=== PATIENT | female | born 1975 | race Caucasian/White ===

== ENCOUNTER 2018-08-21 03:57 | Emergency (ER) | payer BC, OTHER ==
[2018-08-21] MEDS ORDERED: NA CHLORIDE 0.9% 1,000 ML ONE ×2 (04:50→06:43)
[2018-08-21] MEDS ORDERED: ONDANSETRON 4 MG/2 ML VIAL ONE (04:50)
[2018-08-21] MEDS ORDERED: FAMOTIDINE 20 MG/2 ML VIAL IV ONE (04:50)
[2018-08-21 05:10] LABS: Urine Blood NEGATIVE (NEG); Urine Glucose 2+ (NEG); Urine Protein NEGATIVE (NEG)
[2018-08-21 05:12] LABS: Absolute Lymphocytes (CBC) 4.7 K/uL (0.7-4.9); Absolute Monocytes 0.5 K/uL (0.1-1.3); Absolute Neutrophil 11.3 K/uL (1.8-8.0); Basophils % 0.7 % (0-1.3); Eosinophils % 0.3 % (0-4.4); Hematocrit 43.5 % (36.0-45.0); Lymphocytes % 28.4 % (15.3-44.8); RBC Red Blood Cell Count 4.57 M/uL (3.86-4.86)
[2018-08-21 05:15] LABS: Protime INR 0.99
[2018-08-21] MEDS ORDERED: NA CHLORIDE 0.9% 2,000 ML ONE (05:25)
[2018-08-21 05:29] LABS: Arterial Blood Carboxyhemoglob 1.7 % (0-1.5); Blood O2 Saturation 95.6 % (92-98.5)
--- NOTE | 2018-08-21 05:35 | ER ---
Nurse's Notes [facility] Name: Michael Horne Age: 43 yrs Sex: Female : 1975 Arrival Date: 08/21/2018 Time: 04:00 Bed 3 Private MD: Diagnosis: Diabetes mellitus due to underlying condition with ketoacidosis without coma;Type 1 diabetes mellitus;Altered mental status, unspecified;Elevated white blood cell count Presentation: 08/21 04:10 Presenting complaint: EMS states: sudden chest pain started 0300. she went to [place] [address] few weeks ago diagnosed with bronchitis. 04:10 Transition of care: patient was not received from another setting of care. Onset of [facility] symptoms was August 21, 2018. Risk Assessment: Do you want to hurt yourself or someone else? Patient reports no desire to harm self or others. Initial Sepsis Screen: Does the patient meet any 2 criteria? No. Patient's initial sepsis screen is negative. Does the patient have a suspected source of infection? No. Patient's initial sepsis screen is negative. Care prior to arrival: Medication(s) given: ASA, 325 mg, by EMS. 04:10 Acuity: MAEGAN 3 ed1 04:10 Method Of Arrival: EMS: [facility] rr5 04:10 Note vital signs from EMS BP 146/61 HR126 bpm, RR22 cpm, O2 sat 100% CBG 160 mg/dl. rr5 07:08 Acuity: MAEGAN 2 ss TAX ANALYST: 04:10 LMP 08/21/2018 rr5 Historical: - Allergies: 04:10 No Known Allergies; rr5 - Home Meds: 04:10 Lisinopril Oral [Active]; Hydrocodone-Acetaminophen Oral [Active]; gabapentin oral oral rr5 [Active]; 3 types of anti depressant cannot recall the name [Active]; apidra [Active]; Lantus Sub-Q [Active]; Abilify oral oral [Active]; - PMHx: 04:10 Diabetes - IDDM; Hypertension; Depression; Anxiety; nerve pain; rr5 - Immunization history:: Adult Immunizations up to date. - Social history:: Smoking status: Patient uses tobacco products, smokes one pack cigarettes per day. - Ebola Screening: : Patient negative for fever greater than or equal to 101.5 degrees Fahrenheit, and additional compatible Ebola Virus Disease symptoms Patient denies exposure to infectious person Patient denies travel to an Ebola-affected area in the 21 days before illness onset. - Family history:: not pertinent. Screenin:20 Abuse screen: Denies threats or abuse. Denies injuries from another. Nutritional rr5 screening: No deficits noted. Tuberculosis screening: No symptoms or risk factors identified. Fall Risk IV access (20 points). Total Sow Fall Scale indicates No Risk (0-24 pts). Assessment: 04:10 General: Appears in no apparent distress. comfortable, Behavior is calm, cooperative, rr5 appropriate for age. 04:10 Pain: Complains of pain in chest Pain radiates to left arm Pain currently is 10 out of rr5 10 on a pain scale. Quality of pain is described as aching, Pain began suddenly, Is continuous. Neuro: Level of Consciousness is awake, alert, obeys commands, Oriented to person, place, time, situation, Appropriate for age. Cardiovascular: Reports chest pain, Capillary refill < 3 seconds Patient's skin is warm and dry. Rhythm is sinus tachycardia. Respiratory: Airway is patent Respiratory effort is even, unlabored, Respiratory pattern is regular, symmetrical, tachypnea. GI: No signs and/or symptoms were reported involving the gastrointestinal system. : Reports urinary frequency. EENT: No signs and/or symptoms were reported regarding the EENT system. Derm: Skin is intact, Skin temperature is warm. Musculoskeletal: Capillary refill < 3 seconds, Range of motion: intact in all extremities. 05:00 Reassessment: patient complaining of urinary frequency every 15 minutes. rr5 05:20 Reassessment: Patient appears in no apparent distress at this time. No changes from rr5 previously documented assessment. Patient is alert, oriented x 3, equal unlabored respirations, skin warm/dry/pink. 05:55 Reassessment: patient became restless, agitated, GCS 14/15. ED provider reexamined the rr5 patient with order made and carried out. 06:35 Reassessment: patient pulling out lines, trying to get out on bed, disoriented ED rr5 provider at bedside with order made to do soft restraint and carried out. 06:37 Reassessment: saxophone assembler of the patient at bedside explained the need of restraint and rr5 agreed to it. 06:50 Reassessment: patient became calmer after the stat of Ativan IV given ED provider at rr5 bedside reexamined the patient. maintain on semi cox's position, Oxygen saturation maintaining 98-100%. on soft restraint, no redness on the upper extremities. Vital Signs: 04:10 BP 146 / 61; Pulse 126; Resp 25; Temp 98; Pulse Ox 100% ; Weight 92.08 kg; Height 5 ft. rr5 8 in. (172.72 cm); Pain 10/10; 05:10 BP 138 / 57; Pulse 125; Resp 27; Pulse Ox 99% on R/A; rr5 05:55 BP 105 / 60; Pulse 122; Resp 25; Pulse Ox 100% on R/A; rr5 06:30 BP 102 / 55; Pulse 120; Resp 30; Pulse Ox 98% on R/A; rr5 06:38 Temp 97.5(R); ed1 06:40 BP 105 / 60; Pulse 122; Resp 25; Pulse Ox 100% on R/A; rr5 06:50 BP 105 / 45; Pulse 124; Resp 26; Pulse Ox 100% on R/A; rr5 07:50 BP 120 / 50; Pulse 129; Resp 33; Pulse Ox 99% on R/A; tw2 08:45 BP 107 / 86; Pulse 126; Resp 32; Pulse Ox 99% on R/A; tw2 04:10 Body Mass Index 30.87 (92.08 kg, 172.72 cm) rr5 [place] Coma Score: 05:55 Eye Response: spontaneous(4). Verbal Response: confused(4). Motor Response: obeys rr5 commands(6). Total: 14. ED Course: 04:00 Patient arrived in ED. am2 04:10 Maximiliano Cohen MD is Attending Physician. dorita 04:10 Maintain EMS IV. Dressing intact. Good blood return noted. Site clean \T\ dry. Gauge \T\ rr 5 site: G20 left AC. 04:10 Patient maintains SpO2 saturation greater than 95% on room air. rr5 04:10 Patient has correct armband on for positive identification. Placed in gown. Bed in low rr5 position. Call light in reach. Side rails up X2. vehicle monitor technician on. Pulse ox on. NIBP on. 04:22 Mackenzie Christina RN is Primary Nurse. ed1 04:23 XRAY Chest (1 view) In Process Unspecified. EDMS 04:25 Triage completed. ed1 04:26 Primary Nurse role handed off by Mackenzie Christina, GRAHAM rr5 04:26 Ernesto Dhaliwal, GRAHAM is Primary Nurse. rr5 04:50 Initial lab(s) drawn, by me. Inserted saline lock: 20 gauge in right antecubital area, rr5 using aseptic technique. Blood collected. 05:33 Mavis Busby MD is Hospitalizing Provider. [facility] 05:49 Notified ED physician of a critical lab result(s). Glucose 849; CO2 7. ed1 06:10 IV discontinued, positive infiltration at right AC line. rr5 06:15 Inserted saline lock: 20 gauge in left forearm, using aseptic technique. Blood rr5 collected. 06:25 Palmer cath inserted, using sterile technique, 18 Fr., by me, balloon inflated, urine rr5 specimen collected. returned clear yellow urine. 06:45 Second set of blood cultures drawn by physician. Inserted saline lock: 18 gauge in rr5 right EJ, using aseptic technique. ,using aseptic technique. by dr. cohen. 07:00 Arm band placed on. tw2 07:[address] Cohen with Shanda at the [facility]. eb 07:[address] Coon the [place] solution architect poison information specialist for [facility] with Dr. Cohen for patient transfer consultation. 07:46 administrative approval given by Shanda Elliott RN at the [facility]/ patient has been accepted to [facility] [address] [place] [address] bed 5/ report to be called to [phone]/ Dr. Espitia has accepted the patient in transfer. 08:00 called Vicki from the [facility] / ETA 22 mins. eb 08:07 Glucose, Ancillary Testing Sent. tw2 08:12 Report given to Roxanna Peguero RN at [facility]. tw2 08:18 No provider procedures requiring assistance completed. Patient transferred, IV remains tw2 in place. Restraints: 06:40 Non-Violent Restraint: Order obtained. Initiated on August 21, 2018 at 06:40 Restraint rr5 Education provided to family/significant other/legally authorized client relations representative. Actions/Behavior observed: Confused/disoriented, has difficulty remembering/follow instructions, has impaired decision making, repeated attempts to get up from bed/chair w/o assistance, has decreased level of consciousness, unable to follow instructions, repeated attempts to remove/tamper lines/tubes/IV med devices \T\ wound dressing, Less restrictive alternatives attempted: decrease environmental stimuli, 1:1 patient care, reoriented to location, family at bedside, medications evaluated, medicated for pain/anxiety, repositioned, performed diversional activities, Alternative interventions: Effective Clinical justification for use: line protection, patient safety. 07:40 Non-Violent Restraint: Cognition: poor attention/concentration, Circulation: Within tw2 defined parameters (based on Cardiovascular assessment) Skin integrity: Within defined parameters (based on Integumentary assessment) Restraint status: Soft wrist restraint (Right) Continued. Soft wrist restraint (Left) Continued. 08:40 Non-Violent Restraint: Cognition: poor attention/concentration, Circulation: Within tw2 defined parameters (based on Cardiovascular assessment) Skin integrity: Within defined parameters (based on Integumentary assessment) Restraint status: Soft wrist restraint (Right) Continued. Soft wrist restraint (Left) Continued. Administered Medications: 04:23 Not Given (Other Intervention Used; EMS given 324mg tablet): Aspirin 162 mg PO once ed1 04:50 Drug: Zofran 4 mg Route: IVP; Site: right antecubital; rr5 05:00 Follow up: Response: No adverse reaction cc3 04:52 Drug: Pepcid 20 mg Route: IVP; Site: right antecubital; rr5 06:56 Follow up: Response: No adverse reaction rr5 04:57 Drug: NS 0.9% 1000 ml Route: IV; Rate: 125 ml/hr; Site: right antecubital; rr5 05:10 Drug: NS 0.9% 1000 ml Route: IV; Rate: 1 bolus; Site: right antecubital; rr5 06:30 Follow up: Response: No adverse reaction; IV Status: Completed infusion; IV Intake: cc3 1000ml 05:10 Drug: NS 0.9% 1000 ml Route: IV; Rate: 1 bolus; Site: left antecubital; rr5 06:15 Follow up: Response: No adverse reaction; IV Status: Completed infusion; IV Intake: cc3 1000ml 06:20 Drug: NS 0.9% 1000 ml Route: IV; Rate: 1 bolus; Site: left forearm; rr5 07:00 Follow up: Response: No adverse reaction; IV Status: Completed infusion; IV Intake: rr5 1000ml 06:30 Drug: Insulin Drip - (Insulin Regular Human 100 units, NS 0.9% 100 ml) {Co-Signature: rr5 cc3 (Tsephy Cordel).} Route: IV; Rate: 6 units/hr; Site: left forearm; 08:11 Follow up: Rate change 9 units/hr tw2 06:35 Drug: Rocephin - (cefTRIAXone) 1 grams Route: IVPB; Infused Over: 30 mins; Site: left rr5 forearm; 06:40 Follow up: Response: No adverse reaction; IV Status: Completed infusion; IV Intake: [id number] 06:40 Drug: NS 0.9% 1000 ml Route: IV; Rate: 1 bolus; Site: right jugular; rr5 07:00 Follow up: Response: No adverse reaction; IV Status: Completed infusion; IV Intake: tw2 1000ml 06:44 Drug: Ativan 2 mg Route: IVP; Site: left antecubital; bb 06:50 Follow up: Response: No adverse reaction cc3 06:45 Drug: Insulin Regular Human 10 units {Co-Signature: cc3 (Stephy Cordel).} Route: IVP; rr5 Site: left forearm; 06:50 Follow up: Response: No adverse reaction cc3 07:53 Drug: Sodium Bicarbonate 1 amp Route: IVP; Site: left forearm; tw2 07:55 Drug: Lactated Ringers Solution 1000 ml Route: IV; Rate: 150 ml/hr; Site: left forearm; tw2 08:47 Follow up: IV Status: Infusion continued upon transfer tw2 07:55 Drug: Lactated Ringers Solution 500 ml Route: IV; Rate: bolus; Site: right forearm; tw2 08:47 Follow up: Response: No adverse reaction; IV Status: Completed infusion; IV Intake: tw2 500ml 07:57 Drug: Sodium Bicarbonate 1 amp Route: IVP; Site: left forearm; tw2 08:13 CANCELLED (Duplicate Order): Etomidate 20 mg IVP once dorita 08:13 CANCELLED (Duplicate Order): Versed 4 mg IVP once dorita 08:13 CANCELLED (Duplicate Order): Rocuronium 55 mg IVP once dorita Point of Care Testing: Blood Glucose: 05:35 Blood Glucose: High (>450 mg/dL); ed1 06:45 Blood Glucose: High (>450 mg/dL); rr5 06:45 > 500mg/Dl ED provider aware with order made and carried out. rr5 Ranges: Intake: 06:15 IV: 1000ml; Total: 1000ml. cc3 06:30 IV: 1000ml; Total: 2000ml. cc3 06:40 IV: 10ml; Total: 2010ml. cc3 07:00 IV: 1000ml; Total: 3010ml. rr5 07:00 IV: 1000ml; Total: 4010ml. tw2 08:47 IV: 500ml; Total: 4510ml. tw2 Outcome: 05:34 Decision to Hospitalize by Provider. dorita 07:28 ER care complete, transfer ordered by . dorita 08:46 Transferred by helicopter to [facility]. tw2 08:46 Condition: stable 08:46 Instructed on the need for transfer. 08:48 Patient left the ED. tw2 Signatures: Dispatcher [employer] EDMS Maximiliano Cohen MD MD cha Ballard, Brenda RN RN bb Jerilyn Roach RN RN ss Macknezie Christina RN RN ed1 Judi Arora RN RN tw2 Aggie Avila amSonia Gregory Charlene cc3 Ernesto Dhaliwal RN RN rr5 Stephy Acevedo cc3 Corrections: (The following items were deleted from the chart) 04:10 Presenting complaint: EMS states: sudden chest pain started 0300. she went to [address] few weeks ago diagnosed with bronchitis. ed1 04:10 Transition of care: patient was not received from another setting of care. ed1 rr5 04:27 04:10 Onset of symptoms was August 21, 2018 ed1 rr5 27 04:10 Risk Assessment: Do you want to hurt yourself or someone else? Patient reports no 5 desire to harm self or others. ed1 04:27 04:10 Initial Sepsis Screen: Does the patient meet any 2 criteria? No. Patient's rr5 initial sepsis screen is negative. Does the patient have a suspected source of infection? No. Patient's initial sepsis screen is negative. ed1 : 04:10 Care prior to arrival: Medication(s) given: ASA, 325 mg, by EMS ed1 rr5 04: 04:10 Method Of Arrival: EMS: [facility] ed1 rr5 07:02 04:10 Note vital signs from EMS BP 146/61 HR126 bpm, RR22 cpm, O2 sat 100% CBG 126 rr5 mg/dl rr5 07:49 04:50 Initial lab(s) drawn, by me, by EMS personnel. rr5 rr5 07:54 04:10 BP 146 / 61; Pulse 126bpm; Resp 25bpm; Pulse Ox 100%; Temp 98F; 92.08 kg; Height rr5 5 ft. 8 in.; BMI: 30.8; Pain 10; ed1 08:07 08:00 administrative approval given by Shanda Elliott RN at the [facility] eb center/ patient has been accepted to [place] [address] bed 5/ report to be called to [phone]/ Dr. Espitia has accepted the patient in transfer. eb
--- NOTE | 2018-08-21 05:35 | EDPHYS ---
Physician Documentation [facility] Name: Michael Horne Age: 43 yrs Sex: Female : 1975 Arrival Date: 08/21/2018 Time: 04:00 Bed 3 Private MD: ED Physician Maximiliano Cohen HPI: 08/21 05:10 This 43 yrs old Female presents to ER via EMS with complaints of Chest Pain. dorita 05:10 The patient or guardian reports chest pain that is located primarily in the substernal dorita area. Onset: 2 day(s) ago. The pain does not radiate. Associated signs and symptoms: Pertinent positives: abdominal pain, lightheadedness, nausea. The chest pain is described as a heaviness. Duration: The patient or guardian reports a single episode, that is still ongoing. Modifying factors: The symptoms are alleviated by nothing. the symptoms are aggravated by nothing. The patient has experienced similar episodes in the past, a few times. 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 - Social history:: Smoking status: Patient uses tobacco products, smokes one pack cigarettes per day. - Ebola Screening: : Patient negative for fever greater than or equal to 101.5 degrees Fahrenheit, and additional compatible Ebola Virus Disease symptoms Patient denies exposure to infectious person Patient denies travel to an Ebola-affected area in the 21 days before illness onset. - Family history:: not pertinent. ROS: 05:10 Constitutional: Negative for fever, chills, and weight loss, Eyes: Negative for injury, dorita pain, redness, and discharge, ENT: Negative for injury, pain, and discharge, Neck: Negative for injury, pain, and swelling, Cardiovascular: Negative for chest pain, palpitations, and edema, Respiratory: Negative for shortness of breath, cough, wheezing, and pleuritic chest pain, Abdomen/GI: Negative for abdominal pain, nausea, vomiting, diarrhea, and constipation, Back: Negative for injury and pain, : Negative for injury, bleeding, discharge, and swelling, MS/Extremity: Negative for injury and deformity, Skin: Negative for injury, rash, and discoloration, Psych: Negative for depression, anxiety, suicide ideation, homicidal ideation, and hallucinations, Allergy/Immunology: Negative for hives, rash, and allergies, Endocrine: Negative for neck swelling, polydipsia, polyuria, polyphagia, and marked weight changes, Hematologic/Lymphatic: Negative for swollen nodes, abnormal bleeding, and unusual bruising. 05:10 Neuro: Positive for altered mental status, weakness. Exam: 05:10 Constitutional: This is a well developed, well nourished patient who is awake, alert, dorita and in no acute distress. Head/Face: Normocephalic, atraumatic. Eyes: Pupils equal round and reactive to light, extra-ocular motions intact. Lids and lashes normal. Conjunctiva and sclera are non-icteric and not injected. Cornea within normal limits. Periorbital areas with no swelling, redness, or edema. ENT: Nares patent. No nasal discharge, no septal abnormalities noted. Tympanic membranes are normal and external auditory canals are clear. Oropharynx with no redness, swelling, or masses, exudates, or evidence of obstruction, uvula midline. Mucous membranes moist. Neck: Trachea midline, no thyromegaly or masses palpated, and no cervical lymphadenopathy. Supple, full range of motion without nuchal rigidity, or vertebral point tenderness. No Meningismus. Chest/axilla: Normal chest wall appearance and motion. Nontender with no deformity. No lesions are appreciated. Respiratory: Lungs have equal breath sounds bilaterally, clear to auscultation and percussion. No rales, rhonchi or wheezes noted. No increased work of breathing, no retractions or nasal flaring. Abdomen/GI: Soft, non-tender, with normal bowel sounds. No distension or tympany. No guarding or rebound. No evidence of tenderness throughout. Back: No spinal tenderness. No costovertebral tenderness. Full range of motion. Skin: Warm, dry with normal turgor. Normal color with no rashes, no lesions, and no evidence of cellulitis. MS/ Extremity: Pulses equal, no cyanosis. Neurovascular intact. Full, normal range of motion. Psych: Awake, alert, with orientation to person, place and time. Behavior, mood, and affect are within normal limits. 05:10 Cardiovascular: Rate: tachycardic, Rhythm: regular, Pulses: Pulses are 4+ in bilateral radial, brachial, femoral, popliteal, posterior tibial and and dorsalis pedis arteries.. Heart sounds: normal, normal S1and S2, no S3 or S4, no murmur, no rub, no gallop, Edema: is not appreciated, JVD: is not appreciated. 05:10 Musculoskeletal/extremity: Extremities: all appear grossly normal, with no appreciated pain with palpation, ROM: no acute changes, intact in all extremities, full active range of motion, full passive range of motion. 05:10 Neuro: Orientation: to person, situation, Not oriented to place, time, Mentation: inappropriate for stated age, slow to respond, Memory: unable to test, Cranial nerves: grossly normal, is grossly normal based on the patient's age, no acute changes, Cerebellar function: is grossly normal, is grossly normal based on the patient's age, no acute changes, Motor: moves all fours, Gait: is unsteady, Deep tendon reflexes are 2+ (normal) in the bilateral brachioradialis, bicep, tricep and patellar and Achilles tendons, Babinski testing reveals upgoing toes, . Vital Signs: 04:10 BP 146 / 61; Pulse 126; Resp 25; Temp 98; Pulse Ox 100% ; Weight 92.08 kg; Height 5 ft. rr5 8 in. (172.72 cm); Pain 10/10; 05:10 BP 138 / 57; Pulse 125; Resp 27; Pulse Ox 99% on R/A; rr5 05:55 BP 105 / 60; Pulse 122; Resp 25; Pulse Ox 100% on R/A; rr5 06:30 BP 102 / 55; Pulse 120; Resp 30; Pulse Ox 98% on R/A; rr5 06:38 Temp 97.5(R); ed1 06:40 BP 105 / 60; Pulse 122; Resp 25; Pulse Ox 100% on R/A; rr5 06:50 BP 105 / 45; Pulse 124; Resp 26; Pulse Ox 100% on R/A; rr5 07:50 BP 120 / 50; Pulse 129; Resp 33; Pulse Ox 99% on R/A; tw2 08:45 BP 107 / 86; Pulse 126; Resp 32; Pulse Ox 99% on R/A; tw2 04:10 Body Mass Index 30.87 (92.08 kg, 172.72 cm) rr5 Grannis Coma Score: 05:55 Eye Response: spontaneous(4). Verbal Response: confused(4). Motor Response: obeys rr5 commands(6). Total: 14. Procedures: 06:55 Peripheral line: by aseptic technique a peripheral line was placed in the right [facility] external jugular vein. MDM: 04:10 Patient medically screened. [facility] 05:35 Data reviewed: vital signs, nurses notes, lab test result(s), EKG, radiologic studies, [facility] CT scan, plain films. 08/21 04:11 Order name: Basic Metabolic Panel [facility] 08/21 04:11 Order name: CBC with Diff [facility] 08/21 04:11 Order name: LFT's [facility] 08/21 04:11 Order name: Magnesium [facility] 08/21 04:11 Order name: NT PRO-BNP [facility] 08/21 04:11 Order name: PT-INR; Complete Time: 05:32 [facility] 08/21 04:11 Order name: Troponin (emerg Dept Use Only); Complete Time: 06:12 [facility] 08/21 04:11 Order name: Lipase; Complete Time: 06:12 [facility] 08/21 04:11 Order name: Basic Metabolic Panel; Complete Time: 06:12 [facility] 08/21 04:12 Order name: CBC with Automated Diff; Complete Time: 07:41 [facility] 08/21 04:12 Order name: Liver (Hepatic) Function; Complete Time: 06:12 [facility] 08/21 04:12 Order name: Magnesium; Complete Time: 06:12 [facility] 08/21 04:12 Order name: NT PRO-BNP; Complete Time: 06:12 [facility] 08/21 04:45 Order name: Urine Dipstick--Ancillary (enter results) 08/21 04:11 Order name: XRAY Chest (1 view) [facility] 08/21 04:45 Order name: Urine --Ancillary (enter results) 08/21 05:08 Order name: ABG; Complete Time: 05:32 [facility] 08/21 05:10 Order name: CT Head Brain wo Cont [facility] 08/21 05:32 Order name: Blood Culture Adult (2) [facility] 08/21 05:54 Order name: CBC Smear Scan; Complete Time: 07:41 [facility] 08/21 06:54 Order name: Urine Microscopic Only rr5 08/21 07:23 Order name: ABG [facility] 08/21 07:58 Order name: Glucose 08/21 08:00 Order name: Glucose, Ancillary Testing; Complete Time: 08:06 [facility] 08/21 08:00 Order name: Glucose, Ancillary Testing; Complete Time: 08:06 [facility] 08/21 08:00 Order name: Glucose, Ancillary Testing; Complete Time: 08:06 [facility] 08/21 08:02 Order name: Glucose, Ancillary Testing [facility] 08/21 04:11 Order name: EKG; Complete Time: 04:13 [facility] 08/21 04:11 Order name: Cardiac monitoring; Complete Time: 04:58 [facility] 08/21 04:11 Order name: EKG - Nurse/Tech; Complete Time: 04:58 [facility] 08/21 04:11 Order name: IV Saline Lock; Complete Time: 04:58 [facility] 08/21 04:11 Order name: Labs collected and sent; Complete Time: 04:58 [facility] 08/21 04:11 Order name: O2 Per Protocol; Complete Time: 04:58 [facility] 08/21 04:11 Order name: O2 Sat Monitoring; Complete Time: 04:58 [facility] 08/21 05:08 Order name: IV Saline Lock - Large Bore; Complete Time: 05:11 [facility] 08/21 05:32 Order name: Palmer; Complete Time: 07:18 [facility] 08/21 06:57 Order name: Restraint:Non-Violent; Complete Time: 07:17 [facility] Administered Medications: 04:23 Not Given (Other Intervention Used; EMS given 324mg tablet): Aspirin 162 mg PO once ed1 04:50 Drug: Zofran 4 mg Route: IVP; Site: right antecubital; rr5 05:00 Follow up: Response: No adverse reaction cc3 04:52 Drug: Pepcid 20 mg Route: IVP; Site: right antecubital; rr5 06:56 Follow up: Response: No adverse reaction rr5 04:57 Drug: NS 0.9% 1000 ml Route: IV; Rate: 125 ml/hr; Site: right antecubital; rr5 05:10 Drug: NS 0.9% 1000 ml Route: IV; Rate: 1 bolus; Site: right antecubital; rr5 06:30 Follow up: Response: No adverse reaction; IV Status: Completed infusion; IV Intake: cc3 1000ml 05:10 Drug: NS 0.9% 1000 ml Route: IV; Rate: 1 bolus; Site: left antecubital; rr5 06:15 Follow up: Response: No adverse reaction; IV Status: Completed infusion; IV Intake: cc3 1000ml 06:20 Drug: NS 0.9% 1000 ml Route: IV; Rate: 1 bolus; Site: left forearm; rr5 07:00 Follow up: Response: No adverse reaction; IV Status: Completed infusion; IV Intake: rr5 1000ml 06:30 Drug: Insulin Drip - (Insulin Regular Human 100 units, NS 0.9% 100 ml) {Co-Signature: rr5 cc3 (Stephy Cordel).} Route: IV; Rate: 6 units/hr; Site: left forearm; 08:11 Follow up: Rate change 9 units/hr tw2 06:35 Drug: Rocephin - (cefTRIAXone) 1 grams Route: IVPB; Infused Over: 30 mins; Site: left rr5 forearm; 06:40 Follow up: Response: No adverse reaction; IV Status: Completed infusion; IV Intake: [id number] 06:40 Drug: NS 0.9% 1000 ml Route: IV; Rate: 1 bolus; Site: right jugular; rr5 07:00 Follow up: Response: No adverse reaction; IV Status: Completed infusion; IV Intake: tw2 1000ml 06:44 Drug: Ativan 2 mg Route: IVP; Site: left antecubital; bb 06:50 Follow up: Response: No adverse reaction cc3 06:45 Drug: Insulin Regular Human 10 units {Co-Signature: cc3 (Stephy Cordel).} Route: IVP; rr5 Site: left forearm; 06:50 Follow up: Response: No adverse reaction cc3 07:53 Drug: Sodium Bicarbonate 1 amp Route: IVP; Site: left forearm; tw2 07:55 Drug: Lactated Ringers Solution 1000 ml Route: IV; Rate: 150 ml/hr; Site: left forearm; tw2 08:47 Follow up: IV Status: Infusion continued upon transfer tw2 07:55 Drug: Lactated Ringers Solution 500 ml Route: IV; Rate: bolus; Site: right forearm; tw2 08:47 Follow up: Response: No adverse reaction; IV Status: Completed infusion; IV Intake: tw2 500ml 07:57 Drug: Sodium Bicarbonate 1 amp Route: IVP; Site: left forearm; tw2 08:13 CANCELLED (Duplicate Order): Etomidate 20 mg IVP once dorita 08:13 CANCELLED (Duplicate Order): Versed 4 mg IVP once dorita 08:13 CANCELLED (Duplicate Order): Rocuronium 55 mg IVP once [facility] Point of Care Testing: Blood Glucose: 05:35 Blood Glucose: High (>450 mg/dL); ed1 06:45 Blood Glucose: High (>450 mg/dL); rr5 06:45 > 500mg/Dl ED provider aware with order made and carried out. rr5 Ranges: Critical Glucose Levels:Adult <50 mg/dl or >400 mg/dl <40 mg/dl or >180 mg/dl Disposition: 08/21/18 07:[address] [facility]. Diagnosis are Diabetes mellitus due to underlying condition with ketoacidosis without coma, Type 1 diabetes mellitus, Altered mental status, unspecified, Elevated white blood cell count. - Reason for transfer: Higher level of care. - Accepting physician is to [facility] , icu. - Condition is Serious. - Problem is new. - Symptoms have improved. Signatures: Dispatcher [employer] EDMS Maximiliano Cohen MD MD cha Ballard, Brenda RN RN bb Mackenzie Christina RN RN ed1 Judi Arora RN RN tw2 Stephy Acevedo cc3 Ernesto Dhaliwal RN RN rr5 Stephy Acevedo cc3 Corrections: (The following items were deleted from the chart) 05:35 05:34 Hospitalization Ordered by Mavis Busby MD for Inpatient Admission. Preliminary dorita diagnosis is Diabetes mellitus due to underlying condition with ketoacidosis without coma; Weakness. Bed requested for Intensive Care Unit. Status is Inpatient Admission. Condition is Serious. Problem is new. Symptoms have improved. UTI on Admission? No. dorita 07:26 05:35 08/21/2018 05:34 Hospitalization Ordered by Mavis Busby MD for Inpatient dorita Admission. Preliminary diagnosis is Diabetes mellitus due to underlying condition with ketoacidosis without coma; Weakness; Altered mental status, unspecified; Chest pain, unspecified. Bed requested for Intensive Care Unit. Status is Inpatient Admission. Condition is Serious. Problem is new. Symptoms have improved. UTI on Admission? No. [facility] 07:32 07:28 08/21/2018 07:[address] [facility]. Diagnosis is [facility] Diabetes mellitus due to underlying condition with ketoacidosis without coma; Type 1 diabetes mellitus; Altered mental status, unspecified. Reason for transfer: Higher level of care. Accepting physician is to [facility] , icu. Condition is Serious. Problem is new. Symptoms have improved. [facility] 08:13 08:03 Etomidate 20 mg IVP once ordered. [facility] 08:13 08:03 Versed 4 mg IVP once ordered. [facility] 08:13 08:03 Rocuronium 55 mg IVP once ordered. [facility] 08:14 08:03 Central Line Kit ordered. [facility] 08:48 07:32 08/21/2018 07:[address] [facility]. Diagnosis is tw2 Diabetes mellitus due to underlying condition with ketoacidosis without coma; Type 1 diabetes mellitus; Altered mental status, unspecified; Elevated white blood cell count. Reason for transfer: Higher level of care. Accepting physician is to [facility] , icu. Condition is Serious. Problem is new. Symptoms have improved. dorita
[2018-08-21 05:48] LABS: ALT/SGPT 15 U/L (12-78); AST/SGOT 11 U/L (15-37); Albumin 3.5 g/dL (3.4-5.0); Alkaline Phosphatase 176 U/L (45-117); BUN Blood Urea Nitrogen 17 mg/dL (7-18); Bilirubin Direct 0.1 mg/dL (0-0.2); Bilirubin Total 0.5 mg/dL (0.2-1.0); Lipase 80 U/L (73-393); Magnesium 2.4 mg/dL (1.8-2.4); NT PRO-BNP 470 pg/mL (<125); Potassium 4.7 mmol/L (3.5-5.1); Protein, Total 7.1 g/dL (6.4-8.2); Sodium Level 132 mmol/L (136-145); Troponin (Emerg Dept Use Only) < 0.02 ng/mL (0.0-0.045)
[2018-08-21 05:49] LABS: Bicarbonate 7 mmol/L (21-32); Glucose Level 849 mg/dL (74-106)
--- NOTE | 2018-08-21 06:02 | P.HP ---
Certification for Inpatient Patient admitted to: Inpatient With expected LOS: >2 Midnights Practitioner: I am a practitioner with admitting privileges, knowledge of patient current condition, hospital course, and medical plan of care. Services: Services provided to patient in accordance with Admission requirements found in Title 42 Section 412.3 of the Code of Federal Regulations Patient History Date of Service: 08/21/18 Reason for admission: DKA History of Present Illness: Ms Horne is a 43 years old woman with history of DM I, HTN, tobacco abuse, who was admitted in [place] a couple of weeks ago, family said that she was in ICU due to elevated blood sugar. She was doing well, until yesterday, when she was very lethargic and weak. No history of fever or chills. Around 3:00 AM the patient start complaining of chest pain, she became agitated, with rapid respiratory rate. Family called 911 then. Her BS was higher than 500 at home, EMS transfer the patient to ED. No history of fever, chills, cough or SOB. Lab work significantly abnormal, Leukocytosis 16.7, PH 7.06, BS 849, anion gap 27. EKG shows sinus tachycardia, initial trop I negative. CXR shows no acute abnormalities. Allergies No Known Drug Allergies Allergy (Unverified 12/22/14 21:50) Unknown Home medications list reviewed: Yes - Past Medical/Surgical History -: DM I -: HTN -: chronic pain -: tobacco abuse Past Surgical History: Reviewed- Non-Contributory - Family History Family History: Reviewed- Non-Contributory - Social History Smoking Status: Current every day smoker Counseled patient to stop smoking for: less than 10 minutes Smoking therapy provided: Yes Patient receptive to therapy: Yes Alcohol use: Yes CD- Drugs: No Place of Residence: Home Review of Systems 10-point ROS is otherwise unremarkable Physical Examination - Physical Exam General: Alert, Mild distress, Delirious HEENT: Atraumatic, PERRLA, Other (dry mucous membr), EOMI, Sclerae nonicteric Neck: Supple, 2+ carotid pulse no bruit, No LAD, Without JVD or thyroid abnormality Respiratory: Clear to auscultation bilaterally, Normal air movement Cardiovascular: Regular rate/rhythm, Normal S1 S2 Gastrointestinal: Normal bowel sounds, No tenderness Musculoskeletal: No tenderness Integumentary: No rashes Neurological: Normal strength at 5/5 x4 extr, Normal tone, Normal affect Lymphatics: No axilla or inguinal lymphadenopathy - Studies Laboratory Data (last 24 hrs) 08/21/18 04:55: PT 11.7, INR 0.99 08/21/18 04:55: WBC 16.7 H, Hgb 12.4, Hct 43.5, Plt Count 374 08/21/18 04:55: Sodium 132 L, Potassium 4.7, BUN 17, Creatinine 1.50 H, Glucose 849 H*, Magnesium 2.4, Total Bilirubin 0.5, AST 11 L, ALT 15, Alkaline Phosphatase 176 H, Lipase 80 Assessment and Plan - Problems (Diagnosis) (1) DKA (diabetic ketoacidoses) Current Visit: Yes Status: Acute Qualifiers: Diabetes mellitus type: type 1 Diabetes mellitus complication detail: without coma Qualified Code(s): E10.10 - Type 1 diabetes mellitus with ketoacidosis without coma (2) Diabetes mellitus Current Visit: Yes Status: Acute Qualifiers: Diabetes mellitus type: type 1 Diabetes mellitus complication status: with unspecified complications Qualified Code(s): E10.8 - Type 1 diabetes mellitus with unspecified complications (3) HTN (hypertension) Current Visit: Yes Status: Acute Qualifiers: Hypertension type: essential hypertension Qualified Code(s): I10 - Essential (primary) hypertension (4) Tobacco abuse Current Visit: Yes Status: Acute - Plan The patient will be admitted to ICU due to DKA. Will continue with IV fluid infusion and insulin drip per DKA protocol. No obvious signs of infection. Chest pain is unspecific, trop I negative, EKG no ST-T abnormalities. Monitor serial cardiac enzymes. - Advance Directives Does patient have a Living Will: No Does patient have a Durable POA for Healthcare: No - Code Status/Comfort Care Code Status Assessed: Yes Code Status: Full Code
[2018-08-21] MEDS ORDERED: CEFTRIAXONE/SWI 1gm 1 GM/10 ML SYR ONE (06:11)
[2018-08-21] MEDS ORDERED: INSULIN -REGULAR HUMAN 50 UNIT/0.5 ML ML ONE ×2 (06:32→06:59)
[2018-08-21] MEDS ORDERED: NA CHLORIDE 0.9% 100 ML IV ONE (06:38)
[2018-08-21] MEDS ORDERED: LORazepam 2 MG/ML VIAL ONE (06:46)
[2018-08-21 07:34] LABS: Urine White Blood Cell Casts OK
[2018-08-21 07:35] LABS: Blood Morphology Comment NOT SEEN (NOT SEEN); Platelet Estimate ADEQ
[2018-08-21 07:49] LABS: Blood Gas Oxyhemoglobin 92.6 % (94-97); Blood O2 Saturation 94.8 % (92-98.5)
[2018-08-21] MEDS ORDERED: Ringers Lactate 1,000 ML IV ONE ×2 (08:00→08:25)
[2018-08-21 08:05] LABS: Urine Amorphous Sediment 1+ /HPF (NONE SEEN); Urine Bacteria <20 /HPF (<20); Urine Culture Reflex Order NOT NEEDED; Urine RBC <5 /HPF (NONE SEEN)
[2018-08-21] MEDS ORDERED: SODIUM BICARB 50 MEQ/50ML VIAL ONE (08:05)
[2018-08-21] MEDS ORDERED: PROPOFOL 0 MG/0 ML VIAL IV ONE (08:19)
[2018-08-21] MEDS ORDERED: RSI MEDICATION KIT IV ONE (08:19)
--- NOTE | 2018-08-21 08:20 | RAD REPORT ---
EXAM DESCRIPTION: RAD - Chest Single View - 08/21/2018 4:24 am CLINICAL HISTORY: CHEST PAIN Chest pain. COMPARISON: No comparisons FINDINGS: Portable technique limits examination quality. The lungs are grossly clear. The heart is normal in size. No displaced fractures. IMPRESSION: No acute intrathoracic process suspected.
--- NOTE | 2018-08-21 08:25 | EKG ---
Test Date: 2018-08-21 Test Time: 04:13:40 [employer]: CASSIUS MEASUREMENT RESULTS: Intervals: Rate: 125 AL: 132 QRSD: 84 QT: 322 QTc: 464 [place]: P: 85 AL: 132 QRS: 72 T: 64 INTERPRETIVE STATEMENTS: Sinus tachycardia Right atrial enlargement Borderline ECG Compared to ECG 12/14/2014 18:23:13 Atrial abnormality now present Sinus rhythm no longer present Electronically Signed On 08-21-18 08:25:33 CDT by Poncho Narayanan
[2018-08-21] MEDS ORDERED: WATER FOR INJ,STERILE 1,000 ML with NA BICARB 8.4% 150 MEQ IV SCH ×2 (08:30)
--- NOTE | 2018-08-24 16:04 | RAD REPORT ---
EXAM DESCRIPTION: CT - Head Brain Wo Cont - 08/21/2018 7:46 am CLINICAL HISTORY: MENTAL STATUS CHANGE Headache, drowsiness COMPARISON: No comparisons TECHNIQUE: All CT scans are performed using dose optimization technique as appropriate and may inclu de automated exposure control or mA/KV adjustment according to patient size. FINDINGS: No intracranial hemorrhage, hydrocephalus or extra-axial fluid collection.No areas of brai n edema or evidence of midline shift. The paranasal sinuses and mastoids are clear. The calvarium is intact. IMPRESSION: No acute intracranial abnormality.
== END 2018-08-21 08:48 | disposition short-term general hospital (02) ==
LOC: ER 03:57 → ERHOLD 07:03 → UNDOADMIN 07:03 → ER 08:48
PROC: 05HP33Z Insertion of Infusion Device into Right External Jugular Vein, Percutaneous Approach (ICD-10-PCS; principal; 2018-08-21)
DX: E10.10 Type 1 diabetes mellitus with ketoacidosis without coma (principal); D72.829 Elevated white blood cell count, unspecified; I10 Essential (primary) hypertension; F32.9 Major depressive disorder, single episode, unspecified; F41.9 Anxiety disorder, unspecified; F17.210 Nicotine dependence, cigarettes, uncomplicated; Z79.4 Long term (current) use of insulin
CPT/HCPCS: 36415; 70450; 71045; 80048; 80076; 81003; 81015; 81025; 82805; 82947; 82962; 83690; 83735; 83880; 84484; 85025; 85610; 87040; 87077; 87186; 93005; J0696; J2405; J2704; J7030

== ENCOUNTER 2020-10-14 20:41 | Emergency (ER) | payer BC ==
--- OUTSIDE RECORDS SUMMARY | 2020-10-14 20:46 | XMS REPORT | Continuity of Care Document ---
:[address] [facility] t Address [address] [place] [address] Care Team Providers Name Role Phone Jordan FUENTES Attending Clinician OMRANIAN Attending Clinician Unavailable OMRANIAN Admitting Clinician Unavailable Problems Condition Condition Condition Status Onset Resolution Last Treating Co mments Source Name Details Category Date Date Treatment Clinician Date Acute Acute Disease Active [facility] bronchitis bronchitis 5-18 Valerie kes - due to due to 00:00: Medical Rhinovirus Rhinovirus 00 Ce nter Tension Tension Disease Active [facility] type type 5-18 [facility] headache headache 00:00: Medica l 00 Center Calculus Calculus Disease [facility] of of [facility] - gallbladde gallbladde 00:00: Me dical r without r without 00 Cent er cholecysti cholecysti tis tis without without obstructio obstructio n n AUBREY (acute AUBREY (acute Disease Active [facility] kidney kidney 5-18 [facility] - injury) injury) 00:00: Medical 00 Center Wheezing Wheezing Disease [facility] - 00:[facility]: Medical 00 Center Hyperkalem Hyperkalem Disease Active [facility] ia ia 5-17 [facility] - 00:00: Medical 00 Center Sinus Sinus Disease Active 2018- [facility] tachycardi tachycardi 5-17 Valerie kes - a a 00:00: Medical 00 Center Sepsis Sepsis Disease Active 2019-[address] [facility] 5-17 [facility] - 00:00: Medical 00 Center DKA DKA Disease Active [facility] (diabetic (diabetic 5-17 [facility] - ketoacidos ketoacidos 00:00: Me dical es) es) 00 Center Altered Altered Disease Active [facility] mental mental 5-17 [facility] - state state 00:00: Medical 00 [place] Cigarette Cigarette Disease Active [facility] nicotine 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 Social History Social Habit Start Date Stop Date Quantity Comments Source Sex Assigned At [facility] Tobacco use and 2018-08-21 2018-08-21 Never used [facility] - exposure 00:00:00 00:00:00 [facility] Smoking Status Start Date Stop Date Source Current every day smoker 2018-08-21 00:00:00 [facility] Medications Ordered Filled Start Stop Current Ordering Indication Dosage Frequency Signature Comments Components Source Medication Medication Date Date Medication? Clinician (SIG) Name Name insulin Yes 90U QD Inject 90 [facility] glargine 5-27 Units [facility] - (LANTUS) 14:31: subcutaneo Med ical 100 unit/mL 09 usly Center injection nightly Use as directed . insulin Yes Inject [facility] glulisine 5-27 subcutaneo [facility] - U-100 14:31: usly as Medical (APIDRA) 09 needed for Cente r 100 unit/mL High Blood injection Sugar (approxima tely 30 units per day (sliding scale)). lisinopril- Yes 1{tbl} QD Take [address] hydroCHLORO 5-27 tablet by Dmitry es - thiazide 14:31: mouth Medical (PRINZIDE,Z 09 daily. Center ESTORETIC) 20-12.5 mg per tablet PARoxetine Yes 40mg QD Take [address] (PAXIL) 40 5-27 by mouth [facility] - MG tablet 14:31: every Medical 09 morning. Center OXcarbazepi 2019- Yes 300mg Q.5D Take [address] ne 5-27 mg by [facility] - (TRILEPTAL) 14:31: mouth 2 Med ical 300 MG 09 (two) Center tablet times daily. ARIPiprazol Yes 5mg QD Take [address] e (ABILIFY) 5-27 by mouth Luke s - 5 MG tablet 14:31: daily. Medi mike 09 Center HYDROcodone 2018- Yes 1{tbl} Take [address] -acetaminop 5-27 tablet by Dmitry es - hen (NORCO 14:31: mouth Medica l 10-325) 09 every 8 Center 10-325 mg (eight) per tablet hours as needed for Pain. pregabalin Yes 150mg Q.5D Take [address] (LYRICA) 5-27 mg by [facility] - 150 MG 14:31: mouth 2 Medical capsule 09 (two) Center times daily. Procedures This patient has no known procedures. Plan of Care Planned Activity Planned Date Details Comments Source Future Scheduled 2021-08-[address] [facility] - Test 00:00:00 (procedure) [code = Medical Center [id number]] Future Scheduled 2019-12-07 INFLUENZA VACCINE (#1) [facility] - Test 00:00:00 [code = INFLUENZA Medical Ce nter VACCINE (#1)] Future Scheduled [address] Dmitry es - Test 00:00:00 malignant neoplasm of Medica l Center cervix (procedure) [code = 962430209] Future Scheduled [address] DIABETIC EYE EXAM [facility] - Test 00:00:00 [code = DIABETIC EYE Medical Center EXAM] Future Scheduled 1986 Urine screening for [facility] - Test 00:00:00 protein (procedure) [facility] Center [code = 293212118] Future Scheduled [address] [facility] - Test 00:00:00 0-64 YRS (1 of 1 - Medical C enter PPSV23) [code = PNEUMOCOCCAL VACCINE 0-64 YRS (1 of 1 - PPSV23)] Encounters Start End Encounter Admission Attending Care Care Encounter Source Date/Time Date/Time Type Type Clinicians Facility Department ID 2020-10-13 2020-10-13 Telephone [facility] [id number] 00:00:00 00:00:00 Chandu Easley [id number] [place] [id number] [id number] 2020-09-20 2020-09-20 [facility] [id number] 00:00:00 00:00:00 Chandu Easley [id number] [place] [id number] [facility] [id number] Results Test Description Test Time Test Comments Results Result Comments Source SPUTUM CULTURE + GRAM STAIN 2018-09-02 10:25:00 Test Item Value Reference Range Interpretation Comme nts CULTURE (BEAKER) (test code = 1095) See comment GRAM STAIN RESULT (BEAKER) (test code = 1123) 1+ White blood cells seen GRAM STAIN RESULT (BEAKER) (test code = 485431) 0-5 epithelial cell s GRAM STAIN RESULT (BEAKER) (test code = 601620) No organisms seen <1+ yeastNo Normal respiratory neha presentPOCT-GLUCOSE [id number] 11:59:00 Test Item Value Reference Range Interpretation Comments POC-GLUCOSE METER 168 mg/dL 70-110 H TESTED AT [place] [address] ([facility] (test code = [facility] 1538) [address] POCT-GLUCOSE [id number] 08:13:00 Test Item Value Reference Range Interpretation Comments POC-GLUCOSE METER 176 mg/dL 70-110 H TESTED AT [place] [address] ([facility]) (test code = [facility] 1538) [address] BASIC METABOLIC [id number] 07:35:00 Test Item Value Reference Range Interpretation Comments SODIUM (BEAKER) 141 meq/L 136-145 (test code = 381) POTASSIUM (BEAKER) 4.0 meq/L 3.5-5.1 (test code = 379) CHLORIDE (BEAKER) 105 meq/L 98-107 (test code = 382) CO2 (BEAKER) (test 29 meq/L 22-29 code = 355) BLOOD UREA NITROGEN 5 mg/dL 7-21 L (BEAKER) (test code = 354) CREATININE (BEAKER) 0.65 mg/dL 0.57-1.25 (test code = 358) GLUCOSE RANDOM 160 mg/dL 70-105 H (BEAKER) (test code = 652) CALCIUM (BEAKER) 9.0 mg/dL 8.4-10.2 (test code = 697) EGFR (BEAKER) (test 100 mL/min/1.73 ESTIM ATED GFR IS code = 1092) sq m NOT ACCURATE CREATININE CLEARANCE IN PREDICTING GLOMERULAR FILTRATION RATE . ESTIMATED GFR I S NOT APPLICABLE FOR DIALYSIS PATIEN TS. CBC (HEMOGRAM ONLY)2018-08-31 06:55:00 Test Item Value Reference Range Interpretation Comments WHITE BLOOD CELL COUNT (BEAKER) 4.2 K/ L 3.5-10.5 (test code = 775) RED BLOOD CELL COUNT (BEAKER) 3.36 M/ L 3.93-5.22 L (test code = 761) HEMOGLOBIN (BEAKER) (test code = 9.1 GM/DL 11.2-15.7 L 410) HEMATOCRIT (BEAKER) (test code = 28.9 % 34.1-44.9 L 411) MEAN CORPUSCULAR VOLUME (BEAKER) 86.0 fL 79.4-94.8 (test code = 753) MEAN CORPUSCULAR HEMOGLOBIN 27.1 pg 25.6-32.2 (BEAKER) (test code = 751) MEAN CORPUSCULAR HEMOGLOBIN CONC 31.5 GM/DL 32.2-35.5 L (BEAKER) (test code = 752) RED CELL DISTRIBUTION WIDTH 17.2 % 11.7-14.4 H (BEAKER) (test code = 412) PLATELET COUNT (BEAKER) (test 473 K/CU MM 150-450 H code = 756) MEAN PLATELET VOLUME (BEAKER) 9.6 fL 9.4-12.3 (test code = 754) NUCLEATED RED BLOOD CELLS 0 /100 WBC 0-0 (BEAKER) (test code = 413) POCT-GLUCOSE [id number] 21:38:00 Test Item Value Reference Range Interpretation Comments POC-GLUCOSE METER 218 mg/dL 70-110 H TESTED AT [facility] 6720 (BEAKER) (test code = [place] 1538) [address] POCT-GLUCOSE [id number] 18:12:00 Test Item Value Reference Range Interpretation Comments POC-GLUCOSE METER 280 mg/dL 70-110 H TESTED AT [place] [address] ([facility]) (test code = TUNDE Dickey [facility] 1538) [address] RAD, CHEST, 2 [id number] 16:46:00Reason for exam:->Pneumonia vs. volume overload, improving.Should this be performed at the bedside?->NoFINAL REPORT INDICATION: Pneumonia vs. volume overload, improving. COMPARISON: August 24, 2018 TECHNIQUE: Frontal and lateral views of the chest. FINDINGS: Lungs and pleura: Clear lungs. No effusion.Heart and mediastinum: Normal heart size. Unremarkable mediastinal contours.Osseousstructures: No acute abnormality.Additional findings: None. IMPRESSION: No acute intrathoracic abnor mality. Signed: JR Laureano Robert MDReport Verified Date/Time: 08/30/2018 16:46:02 Reading Location: [address] Neuro Reading Room POCT- GLUCOSE [id number] 12:32:00 Test Item Value Reference Range Interpretation Comments POC-GLUCOSE METER 172 mg/dL 70-110 H TESTED AT [place] [address] ([facility]) (test code = TUNDE Dickey [facility] 1538) [address] POCT-GLUCOSE [id number] 08:14:00 Test Item Value Reference Range Interpretation Comments POC-GLUCOSE METER 287 mg/dL 70-110 H TESTED AT [place] [address] ([facility]) (test code = TUNDE Dickey [facility] 1538) [address] BLOOD [id number] 08:01:00 Test Item Value Reference Range Interpretation Comments CULTURE (BEAKER) (test No growth in 5 days code = 1095) BASIC METABOLIC [id number] 07:11:00 Test Item Value Reference Range Interpretation Comments SODIUM (BEAKER) 138 meq/L 136-145 (test code = 381) POTASSIUM (BEAKER) 3.9 meq/L 3.5-5.1 (test code = 379) CHLORIDE (BEAKER) 106 meq/L 98-107 (test code = 382) CO2 (BEAKER) (test 27 meq/L 22-29 code = 355) BLOOD UREA NITROGEN 4 mg/dL 7-21 L (BEAKER) (test code = 354) CREATININE (BEAKER) 0.67 mg/dL 0.57-1.25 (test code = 358) GLUCOSE RANDOM 268 mg/dL 70-105 H (BEAKER) (test code = 652) CALCIUM (BEAKER) 8.4 mg/dL 8.4-10.2 (test code = 697) EGFR (BEAKER) (test 97 mL/min/1.73 ESTIMA CHANDLER GFR IS code = 1092) sq m NOT ACCURATE CREATININE CLEARANCE IN PREDICTING GLOMERULAR FILTRATION RATE . ESTIMATED GFR I S NOT APPLICABLE FOR DIALYSIS PATIEN TS. CBC (HEMOGRAM ONLY)2018-08-30 06:51:00 Test Item Value Reference Range Interpretation Comments WHITE BLOOD CELL COUNT (BEAKER) 3.8 K/ L 3.5-10.5 (test code = 775) RED BLOOD CELL COUNT (BEAKER) 3.03 M/ L 3.93-5.22 L (test code = 761) HEMOGLOBIN (BEAKER) (test code = 8.1 GM/DL 11.2-15.7 L 410) HEMATOCRIT (BEAKER) (test code = 25.8 % 34.1-44.9 L 411) MEAN CORPUSCULAR VOLUME (BEAKER) 85.1 fL 79.4-94.8 (test code = 753) MEAN CORPUSCULAR HEMOGLOBIN 26.7 pg 25.6-32.2 (BEAKER) (test code = 751) MEAN CORPUSCULAR HEMOGLOBIN CONC 31.4 GM/DL 32.2-35.5 L (BEAKER) (test code = 752) RED CELL DISTRIBUTION WIDTH 17.2 % 11.7-14.4 H (BEAKER) (test code = 412) PLATELET COUNT (BEAKER) (test 369 K/CU MM 150-450 code = 756) MEAN PLATELET VOLUME (BEAKER) 9.8 fL 9.4-12.3 (test code = 754) NUCLEATED RED BLOOD CELLS 0 /100 WBC 0-0 (BEAKER) (test code = 413) BLOOD [id number] 02:02:00 Test Item Value Reference Range Interpretation Comments CULTURE (BEAKER) (test No growth in 5 days code = 1095) POCT-GLUCOSE [id number] 22:17:00 Test Item Value Reference Range Interpretation Comments POC-GLUCOSE METER 161 mg/dL 70-110 H TESTED AT [facility] 6720 (BEAKER) (test code = [place] 1538) [address] POCT-GLUCOSE [id number] 18:26:00 Test Item Value Reference Range Interpretation Comments POC-GLUCOSE METER 161 mg/dL 70-110 H TESTED AT [facility] 6720 (BEAKER) (test code = [place] 1538) [address] VANCOMYCIN LEVEL, [id number] 14:58:00 Test Item Value Reference Range Interpretation Comments VANCOMYCIN TROUGH (BEAKER) (test 21.5 ug/mL 10.0-20.0 H code = 522) CBC (HEMOGRAM ONLY)2018-08-29 12:24:00 Test Item Value Reference Range Interpretation Comments WHITE BLOOD CELL COUNT (BEAKER) 4.4 K/ L 3.5-10.5 (test code = 775) RED BLOOD CELL COUNT (BEAKER) 3.19 M/ L 3.93-5.22 L (test code = 761) HEMOGLOBIN (BEAKER) (test code = 8.6 GM/DL 11.2-15.7 L 410) HEMATOCRIT (BEAKER) (test code = 27.0 % 34.1-44.9 L 411) MEAN CORPUSCULAR VOLUME (BEAKER) 84.6 fL 79.4-94.8 (test code = 753) MEAN CORPUSCULAR HEMOGLOBIN 27.0 pg 25.6-32.2 (BEAKER) (test code = 751) MEAN CORPUSCULAR HEMOGLOBIN CONC 31.9 GM/DL 32.2-35.5 L (BEAKER) (test code = 752) RED CELL DISTRIBUTION WIDTH 16.8 % 11.7-14.4 H (BEAKER) (test code = 412) PLATELET COUNT (BEAKER) (test 340 K/CU MM 150-450 code = 756) MEAN PLATELET VOLUME (BEAKER) 9.5 fL 9.4-12.3 (test code = 754) NUCLEATED RED BLOOD CELLS 0 /100 WBC 0-0 (BEAKER) (test code = 413) POCT-GLUCOSE [id number] 12:11:00 Test Item Value Reference Range Interpretation Comments POC-GLUCOSE METER 141 mg/dL 70-110 H TESTED AT [place] [id number] ([facility] (test code = TUNDE Dickey [facility] 1538) [address] POCT-GLUCOSE [id number] 11:50:00 Test Item Value Reference Range Interpretation Comments POC-GLUCOSE METER 60 mg/dL 70-110 L TESTED AT [place] [address] ([facility] (test code = TUNDE Dickey [facility] [address] 1538) POCT-GLUCOSE [id number] 08:03:00 Test Item Value Reference Range Interpretation Comments POC-GLUCOSE METER 81 mg/dL 70-110 TESTED AT [place] [address] (BEAKER) ([facility] = [facility] [address] 1538) BASIC METABOLIC [id number] 07:38:00 Test Item Value Reference Range Interpretation Comments SODIUM (BEAKER) 143 meq/L 136-145 (test code = 381) POTASSIUM (BEAKER) 3.2 meq/L 3.5-5.1 L (test code = 379) CHLORIDE (BEAKER) 107 meq/L 98-107 (test code = 382) CO2 (BEAKER) (test 28 meq/L 22-29 code = 355) BLOOD UREA NITROGEN 3 mg/dL 7-21 L (BEAKER) (test code = 354) CREATININE (BEAKER) 0.55 mg/dL 0.57-1.25 L (test code = 358) GLUCOSE RANDOM 59 mg/dL 70-105 L (BEAKER) (test code = 652) CALCIUM (BEAKER) 8.6 mg/dL 8.4-10.2 (test code = 697) EGFR (BEAKER) (test 121 mL/min/1.73 ESTIM ATED GFR IS code = 1092) sq m NOT ACCURATE CREATININE CLEARANCE IN PREDICTING GLOMERULAR FILTRATION RATE . ESTIMATED GFR I S NOT APPLICABLE FOR DIALYSIS PATIEN TS. POCT-GLUCOSE [id number] 22:05:00 Test Item Value Reference Range Interpretation Comments POC-GLUCOSE METER 216 mg/dL 70-110 H TESTED AT [place] [id number] (BEAKER) (test code = [facility] 1538) [address] POCT-GLUCOSE [id number] 19:55:00 Test Item Value Reference Range Interpretation Comments POC-GLUCOSE METER 210 mg/dL 70-110 H TESTED AT [place] [address] ([facility]) ([facility] = [facility] [address] POCT-GLUCOSE [id number] 14:27:00 Test Item Value Reference Range Interpretation Comments POC-GLUCOSE METER 163 mg/dL 70-110 H TESTED AT [facility] 6720 ([facility]) (test code = TUNDE Dickey [facility] 1538) [address] VANCOMYCIN LEVEL, [id number] 13:30:00 Test Item Value Reference Range Interpretation Comments VANCOMYCIN TROUGH ([facility]) (test 20.0 ug/mL 10.0-20.0 code = 522) Please obtain vancomycin trough 30 min prior to scheduled dose. Hold dose if level >20. Thank you!POCT-GLUCOSE [id number] 10:15:00 Test Item Value Reference Range Interpretation Comments POC-GLUCOSE METER 153 mg/dL 70-110 H TESTED AT [place] [address] ([facility]) (test code = [facility] 1538) [address] HIV-1 ANTIGEN WITH HIV-1/2 [id number] 06:31:00 Test Item Value Reference Range Interpretation Comments HIV-1 ANTIGEN WITH HIV 1\T\2 Nonreactive Nonreactive ANTIBODY (2) ([facility]) (test code = 2586) CT, CHEST, WITHOUT [id number] 01:38:00FINAL REPORT Chest CT without contrast CLINICAL HISTORY: Fever of unknown origin with persistent cough. TECHNIQUE: Contiguous axial images of the chest without contrast. This exam was performed according to the departmental dose optimization program which includes automated exposure control, adjustment of the mA and/or kV according to the patient size, and/or use of an iterative reconstruction technique. COMPARISON: None FINDINGS:Peripheral sparing groundglass and consolidative airspace opacities in the bilateral upper and lower lobes. Discoid atelectasis in the bilateral lower lobes. Small bilateral pleural effusions. Parenchymal airspace opacities limits evaluation for gonzalo picious pulmonary nodules.No pneumothorax.Visualized thyroid gland is unremarkable. The esophagus isnormal in caliber. Multiple prominent mediastinal and hilar lymph nodes none of which meet size criteria for pathology and are likely reactive. The trachea is midline and patent. The heart is normal insize. No pericardial effusion. The thoracic aorta and main pulmonary artery are normal in caliber. No suspicious subcutaneous nodules. No pathologically enlarged axillary lymph nodes. No aggressive osseous lesions or acute fractures. Visualized abdomen is unremarkable. IMPRESSION: Groundglass and consolidative airspace opacities with peripheral sparing bilateral upper and lower lobes is nonspecific however can be seen with atypical infection/pneumonitis in the proper clinical setting. Alternatively pulmonary edema can have this appearance. Signed: Kelly Abraham Verified Date/Time: 08/28/2018 01:38:00 Reading Location: [address] Transitional Reading Room SPUTUM CULTURE + GRAM [id number] 01:06:00 Test Item Value Reference Range Interpretation Comments CULTURE (BEAKER) Oropharyngeal (test code = 1095) contamination, specimen rejected. Recollect requested. GRAM STAIN RESULT <1+ White blood cells (BEAKER) (test code seen = 1123) GRAM STAIN RESULT 0-5 epithelial cells (BEAKER) (test code = 23668) GRAM STAIN RESULT No organisms seen (BEAKER) (test code = 01778) CT, MAXILLOFACIAL AREA, WO [id number] 01:06:00FINAL REPORT Clinical History: Fever of unknown originConcern for possible sinusitis Technique: Contiguous axial, sagittal, and coronal images through the maxillofacial sinuses without contrast. This exam was performed according to the departmental dose optimization program which includes automated exposure control, adjustment of the mA and/or kV according to the patient size, and/or use of an iterative reconstruction technique. Comparisons: None Findings:Frontal sinuses and frontal sinus drainage pathways are clear. There is minimal polypoid mucosal thickening in the left maxillary sinus. The right uncinate process and infundibulum are unremarkable. There is minimal mucosalthickening involving the left infundibulum resulting in stenosis. The sphenoid sinuses and sphenoethmoid recesses are patent. The ethmoid air cells are clear. Trace left mastoid air cell effusion. The patient is a dentulous The retro-orbital soft tissues and visualized brain parenchyma do not demonstrate acute abnormality. Impression: Minimal polypoid mucosal thickening in the left maxillary sinus otherwise the paranasal sinuses are clear. Signed: Kelly Abraham Verified Date/Time: 08/28/2018 01:06:15 Reading Location: [facility] B1 C013T Transitional Reading Room POCT-GLUCOSE [id number] 21:15:00 Test Item Value Reference Range Interpretation Comments POC-GLUCOSE METER 291 mg/dL 70-110 H TESTED AT [place] [address] (BEAKER) (test code = T[place] D[place] 1538) [address] POCT-GLUCOSE [id number] 18:00:00 Test Item Value Reference Range Interpretation Comments POC-GLUCOSE METER 215 mg/dL 70-110 H TESTED AT [place] [address] (BEAKER) (test code = TUNDE Dic[place] 1538) [address] POCT-GLUCOSE [id number] 13:36:00 Test Item Value Reference Range Interpretation Comments POC-GLUCOSE METER 237 mg/dL 70-110 H TESTED AT [place] [address] (BEAKER) (test code = TUNDE Dickey [place] 1538) [address] VANCOMYCIN LEVEL, [id number] 12:42:00 Test Item Value Reference Range Interpretation Comments VANCOMYCIN TROUGH (BEAKER) (test 18.4 ug/mL 10.0-20.0 code = 522) SPUTUM CULTURE + GRAM [id number] 11:22:00 Test Item Value Reference Range Interpretation Comments CULTURE (BEAKER) <1+ Normal respiratory (test code = 1095) neha present GRAM STAIN RESULT 2+ White blood cells (BEAKER) (test code = seen 1123) GRAM STAIN RESULT 10-15 epithelial cells (BEAKER) (test code = 23475) GRAM STAIN RESULT 2+ gram positive cocci (BEAKER) (test code = in chains and pairs 19683) POCT-GLUCOSE [id number] 09:50:00 Test Item Value Reference Range Interpretation Comments POC-GLUCOSE METER 212 mg/dL 70-110 H TESTED AT [place] [address] (BEAKER) (test code = TUNDE Dickey [place] 1538) [address] BASIC METABOLIC [id number] 06:45:00 Test Item Value Reference Range Interpretation Comments SODIUM (BEAKER) 137 meq/L 136-145 (test code = 381) POTASSIUM (BEAKER) 3.7 meq/L 3.5-5.1 (test code = 379) CHLORIDE (BEAKER) 105 meq/L 98-107 (test code = 382) CO2 (BEAKER) (test 25 meq/L 22-29 code = 355) BLOOD UREA NITROGEN 3 mg/dL 7-21 L (BEAKER) (test code = 354) CREATININE (BEAKER) 0.61 mg/dL 0.57-1.25 (test code = 358) GLUCOSE RANDOM 213 mg/dL 70-105 H (BEAKER) (test code = 652) CALCIUM (BEAKER) 8.4 mg/dL 8.4-10.2 (test code = 697) EGFR (BEAKER) (test 108 mL/min/1.73 ESTIM ATED GFR IS code = 1092) sq m NOT ACCURATE CREATININE CLEARANCE IN PREDICTING GLOMERULAR FILTRATION RATE . ESTIMATED GFR I S NOT APPLICABLE FOR DIALYSIS PATIEN TS. CBC (HEMOGRAM ONLY)2018-08-27 06:06:00 Test Item Value Reference Range Interpretation Comments WHITE BLOOD CELL COUNT (BEAKER) 5.3 K/ L 3.5-10.5 (test code = 775) RED BLOOD CELL COUNT (BEAKER) 3.09 M/ L 3.93-5.22 L (test code = 761) HEMOGLOBIN (BEAKER) (test code = 8.4 GM/DL 11.2-15.7 L 410) HEMATOCRIT (BEAKER) (test code = 26.3 % 34.1-44.9 L 411) MEAN CORPUSCULAR VOLUME (BEAKER) 85.1 fL 79.4-94.8 (test code = 753) MEAN CORPUSCULAR HEMOGLOBIN 27.2 pg 25.6-32.2 (BEAKER) (test code = 751) MEAN CORPUSCULAR HEMOGLOBIN CONC 31.9 GM/DL 32.2-35.5 L (BEAKER) (test code = 752) RED CELL DISTRIBUTION WIDTH 17.2 % 11.7-14.4 H (BEAKER) (test code = 412) PLATELET COUNT (BEAKER) (test 234 K/CU MM 150-450 code = 756) MEAN PLATELET VOLUME (BEAKER) 10.3 fL 9.4-12.3 (test code = 754) NUCLEATED RED BLOOD CELLS 0 /100 WBC 0-0 (BEAKER) (test code = 413) POCT-GLUCOSE [id number] 21:37:00 Test Item Value Reference Range Interpretation Comments POC-GLUCOSE METER 130 mg/dL 70-110 H TESTED AT [place] [address] ([facility] (test code = TUNDE Dickey [facility] 1538) [id number] POCT-GLUCOSE [id number] 18:27:00 Test Item Value Reference Range Interpretation Comments POC-GLUCOSE METER 257 mg/dL 70-110 H TESTED AT [place] [address] (BEAKER) (test code = TUNDE Dickey [facility] 1538) [address] POCT-GLUCOSE [id number] 16:45:00 Test Item Value Reference Range Interpretation Comments POC-GLUCOSE METER 167 mg/dL 70-110 H TESTED AT [place] [address] ([facility]) (test code = TUNDE Dickey [facility] 1538) [id number] POCT-GLUCOSE [id number] 15:20:00 Test Item Value Reference Range Interpretation Comments POC-GLUCOSE METER 235 mg/dL 70-110 H TESTED AT [place] [id number] ([facility]) (test code = TUNDE Dickey [facility] 1538) [id number] POCT-GLUCOSE [id number] 14:00:00 Test Item Value Reference Range Interpretation Comments POC-GLUCOSE METER 198 mg/dL 70-110 H TESTED [place] [id number] ([facility]) (test code = TUNDE Dickey [facility] 1538) [id number] BASIC METABOLIC [id number] 13:37:00 Test Item Value Reference Range Interpretation Comments SODIUM (BEAKER) 138 meq/L 136-145 (test code = 381) POTASSIUM (BEAKER) 4.1 meq/L 3.5-5.1 Specimen slightly (test code = 379) hemolyzed CHLORIDE (BEAKER) 108 meq/L 98-107 H (test code = 382) CO2 (BEAKER) (test 22 meq/L 22-29 code = 355) BLOOD UREA NITROGEN 4 mg/dL 7-21 L (BEAKER) (test code = 354) CREATININE (BEAKER) 0.57 mg/dL 0.57-1.25 Specimen slightly (test code = 358) hemolyzed GLUCOSE RANDOM 160 mg/dL 70-105 H (BEAKER) (test code = 652) CALCIUM (BEAKER) 8.2 mg/dL 8.4-10.2 L (test code = 697) EGFR (BEAKER) (test 116 mL/min/1.73 ESTIM ATED GFR IS code = 1092) sq m NOT ACCURATE CREATININE CLEARANCE IN PREDICTING GLOMERULAR FILTRATION RATE . ESTIMATED GFR I S NOT APPLICABLE FOR DIALYSIS PATIEN TS. BLOOD [id number] 12:01:00 Test Item Value Reference Range Interpretation Comments CULTURE (BEAKER) (test No growth in 5 days code = 1095) BLOOD [id number] 12:01:00 Test Item Value Reference Range Interpretation Comments CULTURE (BEAKER) (test No growth in 5 days code = 1095) VANCOMYCIN LEVEL, [id number] 11:39:00 Test Item Value Reference Range Interpretation Comments VANCOMYCIN TROUGH (BEAKER) (test 6.5 ug/mL 10.0-20.0 L code = 522) CBC W/PLT COUNT & AUTO [id number] 11:01:00 Test Item Value Reference Range Interpretation Comments WHITE BLOOD CELL COUNT (BEAKER) 6.3 K/ L 3.5-10.5 (test code = 775) RED BLOOD CELL COUNT (BEAKER) 3.07 M/ L 3.93-5.22 L (test code = 761) HEMOGLOBIN (BEAKER) (test code = 8.4 GM/DL 11.2-15.7 L 410) HEMATOCRIT (BEAKER) (test code = 25.9 % 34.1-44.9 L 411) MEAN CORPUSCULAR VOLUME (BEAKER) 84.4 fL 79.4-94.8 (test code = 753) MEAN CORPUSCULAR HEMOGLOBIN 27.4 pg 25.6-32.2 (BEAKER) (test code = 751) MEAN CORPUSCULAR HEMOGLOBIN CONC 32.4 GM/DL 32.2-35.5 (BEAKER) (test code = 752) RED CELL DISTRIBUTION WIDTH 17.1 % 11.7-14.4 H (BEAKER) (test code = 412) PLATELET COUNT (BEAKER) (test 219 K/CU MM 150-450 code = 756) MEAN PLATELET VOLUME (BEAKER) 10.2 fL 9.4-12.3 (test code = 754) NUCLEATED RED BLOOD CELLS 0 /100 WBC 0-0 (BEAKER) (test code = 413) NEUTROPHILS RELATIVE PERCENT 69 % (BEAKER) (test code = 429) LYMPHOCYTES RELATIVE PERCENT 20 % (BEAKER) (test code = 430) MONOCYTES RELATIVE PERCENT 8 % (BEAKER) (test code = 431) EOSINOPHILS RELATIVE PERCENT 2 % (BEAKER) (test code = 432) BASOPHILS RELATIVE PERCENT 0 % (BEAKER) (test code = 437) NEUTROPHILS ABSOLUTE COUNT 4.33 K/ L 1.56-6.13 (BEAKER) (test code = 670) LYMPHOCYTES ABSOLUTE COUNT 1.27 K/ L 1.18-3.74 (BEAKER) (test code = 414) MONOCYTES ABSOLUTE COUNT (BEAKER) 0.50 K/ L 0.24-0.36 H (test code = 415) EOSINOPHILS ABSOLUTE COUNT 0.12 K/ L 0.04-0.36 (BEAKER) (test code = 416) BASOPHILS ABSOLUTE COUNT (BEAKER) 0.01 K/ L 0.01-0.08 (test code = 417) IMMATURE GRANULOCYTES-RELATIVE 0 % 0-1 PERCENT (BEAKER) (test code = 2801) POCT-GLUCOSE [id number] 07:59:00 Test Item Value Reference Range Interpretation Comments POC-GLUCOSE METER 51 mg/dL 70-110 L TESTED AT [place] [address] ([facility]) (test code = TUNDE Dickey [facility] [address] 1538) POCT-GLUCOSE [id number] 21:45:00 Test Item Value Reference Range Interpretation Comments POC-GLUCOSE METER 170 mg/dL 70-110 H TESTED AT [place] [address] ([facility]) (test code = TUNDE Dickey [facility] 1538) [id number] POCT-GLUCOSE [id number] 17:32:00 Test Item Value Reference Range Interpretation Comments POC-GLUCOSE METER 154 mg/dL 70-110 H TESTED AT [place] [address] ([facility]) (test code = TUNDE Dickey [facility] 1538) [address] POCT-GLUCOSE [id number] 13:45:00 Test Item Value Reference Range Interpretation Comments POC-GLUCOSE METER 79 mg/dL 70-110 TESTED AT [place] [address] ([facility]) (test code = TUNDE Dickey [facility] [address] 1538) POCT-GLUCOSE [id number] 13:28:00 Test Item Value Reference Range Interpretation Comments POC-GLUCOSE METER 57 mg/dL 70-110 L Notified Noble Landry MD/TESTED AT ([facility]) (test code = [place] [address] MARGY 1538) [facility] [id number] POCT-GLUCOSE [id number] 08:53:00 Test Item Value Reference Range Interpretation Comments POC-GLUCOSE METER 148 mg/dL 70-110 H TESTED AT [facility] 6720 (BEAKER) (test code = TUNDE GREGORY 1538) [id number] 08:08:00 Test Item Value Reference Range Interpretation Comments MAGNESIUM (BEAKER) (test code = 1.4 mg/dL 1.6-2.6 L 627) BASIC METABOLIC [id number] 08:08:00 Test Item Value Reference Range Interpretation Comments SODIUM (BEAKER) 140 meq/L 136-145 (test code = 381) POTASSIUM (BEAKER) 2.9 meq/L 3.5-5.1 L (test code = 379) CHLORIDE (BEAKER) 109 meq/L 98-107 H (test code = 382) CO2 (BEAKER) (test 23 meq/L 22-29 code = 355) BLOOD UREA NITROGEN 3 mg/dL 7-21 L (BEAKER) (test code = 354) CREATININE (BEAKER) 0.56 mg/dL 0.57-1.25 L (test code = 358) GLUCOSE RANDOM 97 mg/dL 70-105 (BEAKER) (test code = 652) CALCIUM (BEAKER) 8.0 mg/dL 8.4-10.2 L (test code = 697) EGFR (BEAKER) (test 119 mL/min/1.73 ESTIM ATED GFR IS code = 1092) sq m NOT ACCURATE CREATININE CLEARANCE IN PREDICTING GLOMERULAR FILTRATION RATE . ESTIMATED GFR I S NOT APPLICABLE FOR DIALYSIS PATIEN TS. CBC (HEMOGRAM ONLY)[id number] 07:04:00 Test Item Value Reference Range Interpretation Comments WHITE BLOOD CELL COUNT (BEAKER) 6.4 K/ L 3.5-10.5 (test code = 775) RED BLOOD CELL COUNT (BEAKER) 3.23 M/ L 3.93-5.22 L (test code = 761) HEMOGLOBIN (BEAKER) (test code = 9.0 GM/DL 11.2-15.7 L 410) HEMATOCRIT (BEAKER) (test code = 27.3 % 34.1-44.9 L 411) MEAN CORPUSCULAR VOLUME (BEAKER) 84.5 fL 79.4-94.8 (test code = 753) MEAN CORPUSCULAR HEMOGLOBIN 27.9 pg 25.6-32.2 (BEAKER) (test code = 751) MEAN CORPUSCULAR HEMOGLOBIN CONC 33.0 GM/DL 32.2-35.5 (BEAKER) (test code = 752) RED CELL DISTRIBUTION WIDTH 16.6 % 11.7-14.4 H (BEAKER) (test code = 412) PLATELET COUNT (BEAKER) (test 198 K/CU MM 150-450 code = 756) MEAN PLATELET VOLUME (BEAKER) 10.2 fL 9.4-12.3 (test code = 754) NUCLEATED RED BLOOD CELLS 0 /100 WBC 0-0 (BEAKER) (test code = 413) URINALYSIS W/ REFLEX URINE [id number] 06:01:00 Test Item Value Reference Range Interpretation Comments COLOR (BEAKER) (test code = 470) Yellow CLARITY (BEAKER) (test code = 469) Clear SPECIFIC GRAVITY UA (BEAKER) (test 1.010 1.001-1.035 code = 468) PH UA (BEAKER) (test code = 467) 6.0 5.0-8.0 PROTEIN UA (BEAKER) (test code = 20 mg/dL Negative A 464) GLUCOSE UA (BEAKER) (test code = 30 mg/dL Negative A 365) KETONES UA (BEAKER) (test code = Trace Negative A 371) BILIRUBIN UA (BEAKER) (test code = Negative Negative 462) BLOOD UA (BEAKER) (test code = 461) Moderate Negative A NITRITE UA (BEAKER) (test code = Negative Negative 465) LEUKOCYTE ESTERASE UA (BEAKER) Moderate Negative A (test code = 466) UROBILINOGEN UA (BEAKER) (test code 0.2 mg/dL 0.2-1.0 = 463) RBC UA (BEAKER) (test code = 519) 1 /HPF WBC UA (BEAKER) (test code = 520) 2 /HPF BACTERIA (BEAKER) (test code = 517) Rare MUCUS (BEAKER) (test code = 1574) Moderate SQUAMOUS EPITHELIAL (BEAKER) (test 8 /HPF code = 516) YEAST (BEAKER) (test code = 1585) Many SOURCE(BEAKER) (test code = 7835) RAD, CHEST, 1 VIEW, NON [id number] 23:05:00Reason for exam:->chest painShould this be performed at the bedside?->YesFINAL REPORT Chest one view. Clinical history: chest pain Comparison: Chest r adiograph 08/21/2018. Technique: A single frontal view of the chest was obtained. Findings/impression: The heart is normal in size. There are diffuse bilateral perihilar and bibasilar opacities which may represent pulmonary edema an/or pneumonia. There is no pleural effusion or pneumothorax. The bony thorax is unremarkable. Signed: Richard Hsu MDReport Verified Date/Time: 08/24/2018 23:05:27 Reading Location: [facility] C013Y CT Body Reading Room TROPONIN [id number] 22:50:00 Test Item Value Reference Range Interpretation Comments TROPONIN I ([facility]) (test code = 397) < ng/mL 0.00-0.03 Troponin I (TnI) levels must be interpreted in the context of the presenting symptoms and the clinical findings. Elevated TnI levels indicate myocardial damage, but are not specific for ischemic heart disease. Elevated TnI levels are seen in patients with other cardiac conditions (including myocarditis and congestive heart failure), and slight TnI elevations occur in patients with other conditions, including sepsis, renal failure, acidosis, acute neurological disease, and persistent tachyarrhythmia.POCT-GLUCOSE [id number] 20:56:00 Test Item Value Reference Range Interpretation Comments POC-GLUCOSE METER 128 mg/dL 70-110 H TESTED AT [place] [address] [facility] (test code = [facility] [employer] [facility] 1538) [address] POCT-GLUCOSE [id number] 18:30:00 Test Item Value Reference Range Interpretation Comments POC-GLUCOSE METER 109 mg/dL 70-110 TESTED AT [place] [address] ([employer]) (test code = [facility] [employer] [facility] 1538) [address] POCT-GLUCOSE [id number] 12:21:00 Test Item Value Reference Range Interpretation Comments POC-GLUCOSE METER 184 mg/dL 70-110 H TESTED AT [place] [address] ([employer]) (test code = [employer] [facility] 1538) [address] POCT-GLUCOSE [id number] 09:03:00 Test Item Value Reference Range Interpretation Comments POC-GLUCOSE METER 218 mg/dL 70-110 H TESTED AT [facility] 6720 (BEAKER) (test code = [place] 1538) [address] CBC W/PLT COUNT & AUTO [id number] 02:49:00 Test Item Value Reference Range Interpretation Comments WHITE BLOOD CELL COUNT (BEAKER) 8.4 K/ L 3.5-10.5 (test code = 775) RED BLOOD CELL COUNT (BEAKER) 3.43 M/ L 3.93-5.22 L (test code = 761) HEMOGLOBIN (BEAKER) (test code = 9.5 GM/DL 11.2-15.7 L 410) HEMATOCRIT (BEAKER) (test code = 28.5 % 34.1-44.9 L 411) MEAN CORPUSCULAR VOLUME (BEAKER) 83.1 fL 79.4-94.8 (test code = 753) MEAN CORPUSCULAR HEMOGLOBIN 27.7 pg 25.6-32.2 (BEAKER) (test code = 751) MEAN CORPUSCULAR HEMOGLOBIN CONC 33.3 GM/DL 32.2-35.5 (BEAKER) (test code = 752) RED CELL DISTRIBUTION WIDTH 16.2 % 11.7-14.4 H (BEAKER) (test code = 412) PLATELET COUNT (BEAKER) (test 178 K/CU MM 150-450 code = 756) MEAN PLATELET VOLUME (BEAKER) 10.0 fL 9.4-12.3 (test code = 754) NUCLEATED RED BLOOD CELLS 0 /100 WBC 0-0 (BEAKER) (test code = 413) NEUTROPHILS RELATIVE PERCENT 81 % (BEAKER) (test code = 429) LYMPHOCYTES RELATIVE PERCENT 15 % (BEAKER) (test code = 430) MONOCYTES RELATIVE PERCENT 3 % (BEAKER) (test code = 431) EOSINOPHILS RELATIVE PERCENT 1 % (BEAKER) (test code = 432) BASOPHILS RELATIVE PERCENT 0 % (BEAKER) (test code = 437) NEUTROPHILS ABSOLUTE COUNT 6.78 K/ L 1.56-6.13 H (BEAKER) (test code = 670) LYMPHOCYTES ABSOLUTE COUNT 1.21 K/ L 1.18-3.74 (BEAKER) (test code = 414) MONOCYTES ABSOLUTE COUNT (BEAKER) 0.24 K/ L 0.24-0.36 (test code = 415) EOSINOPHILS ABSOLUTE COUNT 0.06 K/ L 0.04-0.36 (BEAKER) (test code = 416) BASOPHILS ABSOLUTE COUNT (BEAKER) 0.01 K/ L 0.01-0.08 (test code = 417) IMMATURE GRANULOCYTES-RELATIVE 1 % 0-1 PERCENT (BEAKER) (test code = 2801) LACTIC ACID, [id number] 02:47:00 Test Item Value Reference Range Interpretation Comments LACTATE BLOOD VENOUS (2) (BEAKER) 0.8 mmol/L 0.5-2.2 (test code = 2872) TROPONIN [id number] 02:36:00 Test Item Value Reference Range Interpretation Comments TROPONIN I (BEAKER) (test code = 397) < ng/mL 0.00-0.03 Troponin I (TnI) levels must be interpreted in the context of the presenting symptoms and the clinical findings. Elevated TnI levels indicate myocardial damage, but are not specific for ischemic heart disease. Elevated TnI levels are seen in patients with other cardiac conditions (including myocarditis and congestive heart failure), and slight TnI elevations occur in patients with other conditions, including sepsis, renal failure, acidosis, acute neurological disease, and persistent tachyarrhythmia.[id number] 02:32:00 Test Item Value Reference Range Interpretation Comments MAGNESIUM (BEAKER) (test code = 1.6 mg/dL 1.6-2.6 627) BASIC METABOLIC [id number] 02:32:00 Test Item Value Reference Range Interpretation Comments SODIUM (BEAKER) 137 meq/L 136-145 (test code = 381) POTASSIUM (BEAKER) 3.0 meq/L 3.5-5.1 L (test code = 379) CHLORIDE (BEAKER) 110 meq/L 98-107 H (test code = 382) CO2 (BEAKER) (test 19 meq/L 22-29 L code = 355) BLOOD UREA NITROGEN 3 mg/dL 7-21 L (BEAKER) (test code = 354) CREATININE (BEAKER) 0.62 mg/dL 0.57-1.25 (test code = 358) GLUCOSE RANDOM 151 mg/dL 70-105 H (BEAKER) (test code = 652) CALCIUM (BEAKER) 8.2 mg/dL 8.4-10.2 L (test code = 697) EGFR ([facility]) (test 106 mL/min/1.73 ESTIM ATED GFR IS code = 1092) sq m NOT ACCURATE CREATININE CLEARANCE IN PREDICTING GLOMERULAR FILTRATION RATE . ESTIMATED GFR I S NOT APPLICABLE FOR DIALYSIS PATIEN TS. OSMOLALITY, [id number] 00:11:00 Test Item Value Reference Range Interpretation Comments OSMOLALITY URINE 660 mOsm/kg 40-1,400 Test perfor med at ([facility]) (test code = [facility] dical center 614) POCT-GLUCOSE [id number] 21:07:00 Test Item Value Reference Range Interpretation Comments POC-GLUCOSE METER 187 mg/dL 70-110 H TESTED AT [place] [address] ([facility]) (test code = TUNDE Dickey [facility] 1538) [id number] POCT-GLUCOSE [id number] 17:26:00 Test Item Value Reference Range Interpretation Comments POC-GLUCOSE METER 145 mg/dL 70-110 H TESTED AT [place] [address] ([facility]) (test code = TUNDE Dickey [facility] 1538) [address] POCT-GLUCOSE [id number] 15:03:00 Test Item Value Reference Range Interpretation Comments POC-GLUCOSE METER 107 mg/dL 70-110 TESTED AT [place] [address] ([facility]) (test code = TUNDE Dickey [facility] 1538) [address] POCT-GLUCOSE [id number] 12:27:00 Test Item Value Reference Range Interpretation Comments POC-GLUCOSE METER 118 mg/dL 70-110 H TESTED AT [place] [address] ([facility]) (test code = TUNDE Dickey [facility] 1538) [address] POCT-GLUCOSE [id number] 08:16:00 Test Item Value Reference Range Interpretation Comments POC-GLUCOSE METER 121 mg/dL 70-110 H TESTED AT [place] [address] ([facility]) (test code = TUNDE Dickey [facility] 1538) [address] POCT-GLUCOSE [id number] 07:54:00 Test Item Value Reference Range Interpretation Comments POC-GLUCOSE METER 115 mg/dL 70-110 H TESTED AT [place] [address] ([facility]) (test code = TUNDE Dickey [facility] 1538) [id number] 06:43:00 Test Item Value Reference Range Interpretation Comments PROCALCITONIN (BEAKER) (test code 7.46 ng/mL <0.05 H = 3036) SEPSIS RISK (ng/mL)Low: 0.05-0.50Intermediate: 0.51-2.00High: >=[id number] 05:35:00 Test Item Value Reference Range Interpretation Comments PHOSPHORUS (BEAKER) (test code = 2.3 mg/dL 2.3-4.7 604) [id number] 05:35:00 Test Item Value Reference Range Interpretation Comments MAGNESIUM (BEAKER) (test code = 1.8 mg/dL 1.6-2.6 627) BASIC METABOLIC [id number] 05:35:00 Test Item Value Reference Range Interpretation Comments SODIUM (BEAKER) 139 meq/L 136-145 (test code = 381) POTASSIUM (BEAKER) 3.3 meq/L 3.5-5.1 L (test code = 379) CHLORIDE (BEAKER) 114 meq/L 98-107 H (test code = 382) CO2 (BEAKER) (test 17 meq/L 22-29 L code = 355) BLOOD UREA NITROGEN 3 mg/dL 7-21 L (BEAKER) (test code = 354) CREATININE (BEAKER) 0.65 mg/dL 0.57-1.25 (test code = 358) GLUCOSE RANDOM 66 mg/dL 70-105 L (BEAKER) (test code = 652) CALCIUM (BEAKER) 8.0 mg/dL 8.4-10.2 L (test code = 697) EGFR (BEAKER) (test 100 mL/min/1.73 ESTIM ATED GFR IS code = 1092) sq m NOT ACCURATE CREATININE CLEARANCE IN PREDICTING GLOMERULAR FILTRATION RATE . ESTIMATED GFR I S NOT APPLICABLE FOR DIALYSIS PATIEN TS. LACTIC ACID, [id number] 05:30:00 Test Item Value Reference Range Interpretation Comments LACTATE BLOOD VENOUS (2) (BEAKER) 0.7 mmol/L 0.5-2.2 (test code = 2872) CBC W/PLT COUNT & AUTO [id number] 05:21:00 Test Item Value Reference Range Interpretation Comments WHITE BLOOD CELL COUNT (BEAKER) 9.6 K/ L 3.5-10.5 (test code = 775) RED BLOOD CELL COUNT (BEAKER) 3.34 M/ L 3.93-5.22 L (test code = 761) HEMOGLOBIN (BEAKER) (test code = 9.2 GM/DL 11.2-15.7 L 410) HEMATOCRIT (BEAKER) (test code = 28.3 % 34.1-44.9 L 411) MEAN CORPUSCULAR VOLUME (BEAKER) 84.7 fL 79.4-94.8 (test code = 753) MEAN CORPUSCULAR HEMOGLOBIN 27.5 pg 25.6-32.2 (BEAKER) (test code = 751) MEAN CORPUSCULAR HEMOGLOBIN CONC 32.5 GM/DL 32.2-35.5 (BEAKER) (test code = 752) RED CELL DISTRIBUTION WIDTH 16.5 % 11.7-14.4 H (BEAKER) (test code = 412) PLATELET COUNT (BEAKER) (test 191 K/CU MM 150-450 code = 756) MEAN PLATELET VOLUME (BEAKER) 10.4 fL 9.4-12.3 (test code = 754) NUCLEATED RED BLOOD CELLS 0 /100 WBC 0-0 (BEAKER) (test code = 413) NEUTROPHILS RELATIVE PERCENT 78 % (BEAKER) (test code = 429) LYMPHOCYTES RELATIVE PERCENT 17 % (BEAKER) (test code = 430) MONOCYTES RELATIVE PERCENT 4 % (BEAKER) (test code = 431) EOSINOPHILS RELATIVE PERCENT 0 % (BEAKER) (test code = 432) BASOPHILS RELATIVE PERCENT 0 % (BEAKER) (test code = 437) NEUTROPHILS ABSOLUTE COUNT 7.47 K/ L 1.56-6.13 H (BEAKER) (test code = 670) LYMPHOCYTES ABSOLUTE COUNT 1.66 K/ L 1.18-3.74 (BEAKER) (test code = 414) MONOCYTES ABSOLUTE COUNT (BEAKER) 0.34 K/ L 0.24-0.36 (test code = 415) EOSINOPHILS ABSOLUTE COUNT 0.02 K/ L 0.04-0.36 L (BEAKER) (test code = 416) BASOPHILS ABSOLUTE COUNT (BEAKER) 0.01 K/ L 0.01-0.08 (test code = 417) IMMATURE GRANULOCYTES-RELATIVE 1 % 0-1 PERCENT (BEAKER) (test code = 2801) HEMOGLOBIN [id number] 01:14:00 Test Item Value Reference Range Interpretation Comments HEMOGLOBIN A1C (BEAKER) (test code = > % 4.3-6.1 H 368) POCT-GLUCOSE [id number] 22:04:00 Test Item Value Reference Range Interpretation Comments POC-GLUCOSE METER 133 mg/dL 70-110 H TESTED AT [facility] 6720 (BEAKER) (test code = T[place] 1538) [id number] 21:18:00 Test Item Value Reference Range Interpretation Comments MAGNESIUM (BEAKER) (test code = 1.8 mg/dL 1.6-2.6 627) BASIC METABOLIC [id number] 21:16:00 Test Item Value Reference Range Interpretation Comments SODIUM (BEAKER) 139 meq/L 136-145 (test code = 381) POTASSIUM (BEAKER) 3.7 meq/L 3.5-5.1 (test code = 379) CHLORIDE (BEAKER) 116 meq/L 98-107 H (test code = 382) CO2 (BEAKER) (test 14 meq/L 22-29 L code = 355) BLOOD UREA NITROGEN 3 mg/dL 7-21 L (BEAKER) (test code = 354) CREATININE (BEAKER) 0.75 mg/dL 0.57-1.25 (test code = 358) GLUCOSE RANDOM 98 mg/dL 70-105 (BEAKER) (test code = 652) CALCIUM (BEAKER) 7.9 mg/dL 8.4-10.2 L (test code = 697) EGFR (BEAKER) (test 85 mL/min/1.73 ESTIMA CHANDLER GFR IS code = 1092) sq m NOT ACCURATE CREATININE CLEARANCE IN PREDICTING GLOMERULAR FILTRATION RATE . ESTIMATED GFR I S NOT APPLICABLE FOR DIALYSIS PATIEN TS. [id number] 21:02:00 Test Item Value Reference Range Interpretation Comments PHOSPHORUS (BEAKER) (test code = 2.7 mg/dL 2.3-4.7 604) POCT-GLUCOSE [id number] 18:03:00 Test Item Value Reference Range Interpretation Comments POC-GLUCOSE METER 157 mg/dL 70-110 H TESTED AT [facility] 6720 (BEAKER) (test code = [place] 1538) [id number] POCT-GLUCOSE [id number] 16:40:00 Test Item Value Reference Range Interpretation Comments POC-GLUCOSE METER 176 mg/dL 70-110 H TESTED AT [facility] 6720 [facility] (test code = [facility] 1538) [id number] 16:17:00 Test Item Value Reference Range Interpretation Comments PHOSPHORUS (BEAKER) (test code = 2.3 mg/dL 2.3-4.7 604) [id number] 16:17:00 Test Item Value Reference Range Interpretation Comments MAGNESIUM (BEAKER) (test code = 1.8 mg/dL 1.6-2.6 627) BASIC METABOLIC [id number] 16:17:00 Test Item Value Reference Range Interpretation Comments SODIUM (BEAKER) 137 meq/L 136-145 (test code = 381) POTASSIUM (BEAKER) 3.7 meq/L 3.5-5.1 (test code = 379) CHLORIDE (BEAKER) 113 meq/L 98-107 H (test code = 382) CO2 (BEAKER) (test 16 meq/L 22-29 L code = 355) BLOOD UREA NITROGEN 4 mg/dL 7-21 L (BEAKER) (test code = 354) CREATININE (BEAKER) 0.81 mg/dL 0.57-1.25 (test code = 358) GLUCOSE RANDOM 159 mg/dL 70-105 H (BEAKER) (test code = 652) CALCIUM (BEAKER) 7.9 mg/dL 8.4-10.2 L (test code = 697) EGFR (BEAKER) (test 78 mL/min/1.73 ESTIMA CHANDLER GFR IS code = 1092) sq m NOT ACCURATE CREATININE CLEARANCE IN PREDICTING GLOMERULAR FILTRATION RATE . ESTIMATED GFR I S NOT APPLICABLE FOR DIALYSIS PATIEN TS. POCT-GLUCOSE [id number] 15:58:00 Test Item Value Reference Range Interpretation Comments POC-GLUCOSE METER 176 mg/dL 70-110 H TESTED AT [facility] 6720 (BEAKER) (test code = [facility] 1538) [id number] POCT-GLUCOSE [id number] 14:22:00 Test Item Value Reference Range Interpretation Comments POC-GLUCOSE METER 187 mg/dL 70-110 H TESTED AT [facility] 6720 (BEAKER) (test code = [facility] 1538) [id number] BASIC METABOLIC [id number] 14:04:00 Test Item Value Reference Range Interpretation Comments SODIUM (BEAKER) 136 meq/L 136-145 (test code = 381) POTASSIUM (BEAKER) 4.0 meq/L 3.5-5.1 (test code = 379) CHLORIDE (BEAKER) 112 meq/L 98-107 H (test code = 382) CO2 (BEAKER) (test 14 meq/L 22-29 L code = 355) BLOOD UREA NITROGEN 5 mg/dL 7-21 L (BEAKER) (test code = 354) CREATININE (BEAKER) 0.82 mg/dL 0.57-1.25 (test code = 358) GLUCOSE RANDOM 191 mg/dL 70-105 H (BEAKER) (test code = 652) CALCIUM (BEAKER) 7.8 mg/dL 8.4-10.2 L (test code = 697) EGFR (BEAKER) (test 76 mL/min/1.73 ESTIMA CHANDLER GFR IS code = 1092) sq m NOT ACCURATE CREATININE CLEARANCE IN PREDICTING GLOMERULAR FILTRATION RATE . ESTIMATED GFR I S NOT APPLICABLE FOR DIALYSIS PATIEN TS. [id number] 14:01:00 Test Item Value Reference Range Interpretation Comments PHOSPHORUS (BEAKER) (test code = 2.7 mg/dL 2.3-4.7 604) [id number] 14:01:00 Test Item Value Reference Range Interpretation Comments MAGNESIUM (BEAKER) (test code = 1.8 mg/dL 1.6-2.6 627) POCT-GLUCOSE [id number] 13:14:00 Test Item Value Reference Range Interpretation Comments POC-GLUCOSE METER 193 mg/dL 70-110 H TESTED AT [facility] 6720 (BEAKER) (test code = [facility] 1538) [id number] POCT-GLUCOSE [id number] 12:32:00 Test Item Value Reference Range Interpretation Comments POC-GLUCOSE METER 210 mg/dL 70-110 H TESTED AT [facility] 6720 (BEAKER) (test code = [facility] 1538) [id number] 12:12:00 Test Item Value Reference Range Interpretation Comments FERRITIN (BEAKER) (test code = 361) 20 ng/mL 5-275 POCT-GLUCOSE [id number] 11:20:00 Test Item Value Reference Range Interpretation Comments POC-GLUCOSE METER 216 mg/dL 70-110 H TESTED AT [facility] 6720 (BEAKER) (test code = [facility] 1538) [id number] POCT-GLUCOSE [id number] 11:19:00 Test Item Value Reference Range Interpretation Comments POC-GLUCOSE METER 218 mg/dL 70-110 H TESTED AT [facility] 6720 (BEAKER) (test code = [facility] [place] 1538) [id number] BASIC METABOLIC [id number] 09:50:00 Test Item Value Reference Range Interpretation Comments SODIUM (BEAKER) 136 meq/L 136-145 (test code = 381) POTASSIUM (BEAKER) 4.0 meq/L 3.5-5.1 (test code = 379) CHLORIDE (BEAKER) 112 meq/L 98-107 H (test code = 382) CO2 (BEAKER) (test 11 meq/L 22-29 L code = 355) BLOOD UREA NITROGEN 6 mg/dL 7-21 L (BEAKER) (test code = 354) CREATININE (BEAKER) 0.89 mg/dL 0.57-1.25 (test code = 358) GLUCOSE RANDOM 231 mg/dL 70-105 H (BEAKER) (test code = 652) CALCIUM (BEAKER) 7.9 mg/dL 8.4-10.2 L (test code = 697) EGFR (BEAKER) (test 70 mL/min/1.73 ESTIMA CHANDLER GFR IS code = 1092) sq m NOT ACCURATE CREATININE CLEARANCE IN PREDICTING GLOMERULAR FILTRATION RATE . ESTIMATED GFR I S NOT APPLICABLE FOR DIALYSIS PATIEN TS. [id number] 09:39:00 Test Item Value Reference Range Interpretation Comments PHOSPHORUS (BEAKER) (test code = 2.2 mg/dL 2.3-4.7 L 604) [id number] 09:39:00 Test Item Value Reference Range Interpretation Comments MAGNESIUM (BEAKER) (test code = 2.3 mg/dL 1.6-2.6 627) POCT-GLUCOSE [id number] 09:22:00 Test Item Value Reference Range Interpretation Comments POC-GLUCOSE METER 238 mg/dL 70-110 H TESTED AT [facility] 6720 (BEAKER) (test code = [facility] 1538) [id number] POCT-GLUCOSE [id number] 08:33:00 Test Item Value Reference Range Interpretation Comments POC-GLUCOSE METER 234 mg/dL 70-110 H TESTED AT [place] [address] ([facility]) (test code = [facility] 1538) [address] POCT-GLUCOSE [id number] 07:09:00 Test Item Value Reference Range Interpretation Comments POC-GLUCOSE METER 236 mg/dL 70-110 H TESTED AT [place] [address] ([facility]) ([facility] = [facility] 1538) [id number] 06:34:00 Test Item Value Reference Range Interpretation Comments PROCALCITONIN ([facility]) (test code 17.26 ng/mL <0.05 = 3036) SEPSIS RISK (ng/mL)Low: 0.05-0.50Intermediate: 0.51-2.00High: >=2.01POCT-GLUCOSE [id number] 06:22:00 Test Item Value Reference Range Interpretation Comments POC-GLUCOSE METER 199 mg/dL 70-110 H TESTED AT [place] [address] ([facility]) (test code = [facility] 1538) [id number] POCT-GLUCOSE [id number] 06:22:00 Test Item Value Reference Range Interpretation Comments POC-GLUCOSE METER 183 mg/dL 70-110 H TESTED AT [place] [address] ([facility]) (test code = [facility] 1538) [address] BASIC METABOLIC [id number] 04:56:00 Test Item Value Reference Range Interpretation Comments SODIUM (BEAKER) 137 meq/L 136-145 (test code = 381) POTASSIUM (BEAKER) 3.9 meq/L 3.5-5.1 (test code = 379) CHLORIDE (BEAKER) 113 meq/L 98-107 H (test code = 382) CO2 (BEAKER) (test 11 meq/L 22-29 L code = 355) BLOOD UREA NITROGEN 8 mg/dL 7-21 (BEAKER) (test code = 354) CREATININE (BEAKER) 0.96 mg/dL 0.57-1.25 (test code = 358) GLUCOSE RANDOM 147 mg/dL 70-105 H (BEAKER) (test code = 652) CALCIUM (BEAKER) 7.8 mg/dL 8.4-10.2 L (test code = 697) EGFR (BEAKER) (test 64 mL/min/1.73 ESTIMA CHANDLER GFR IS code = 1092) sq m NOT ACCURATE CREATININE CLEARANCE IN PREDICTING GLOMERULAR FILTRATION RATE . ESTIMATED GFR I S NOT APPLICABLE FOR DIALYSIS PATIEN TS. CBC W/PLT COUNT & AUTO [id number] 04:52:00 Test Item Value Reference Range Interpretation Comments WHITE BLOOD CELL COUNT (BEAKER) 13.6 K/ L 3.5-10.5 H (test code = 775) RED BLOOD CELL COUNT (BEAKER) 3.50 M/ L 3.93-5.22 L (test code = 761) HEMOGLOBIN (BEAKER) (test code = 9.5 GM/DL 11.2-15.7 L 410) HEMATOCRIT (BEAKER) (test code = 30.2 % 34.1-44.9 L 411) MEAN CORPUSCULAR VOLUME (BEAKER) 86.3 fL 79.4-94.8 (test code = 753) MEAN CORPUSCULAR HEMOGLOBIN 27.1 pg 25.6-32.2 (BEAKER) (test code = 751) MEAN CORPUSCULAR HEMOGLOBIN CONC 31.5 GM/DL 32.2-35.5 L (BEAKER) (test code = 752) RED CELL DISTRIBUTION WIDTH 16.1 % 11.7-14.4 H (BEAKER) (test code = 412) PLATELET COUNT (BEAKER) (test 235 K/CU MM 150-450 code = 756) MEAN PLATELET VOLUME (BEAKER) 10.6 fL 9.4-12.3 (test code = 754) NUCLEATED RED BLOOD CELLS 0 /100 WBC 0-0 (BEAKER) (test code = 413) NEUTROPHILS RELATIVE PERCENT 78 % (BEAKER) (test code = 429) LYMPHOCYTES RELATIVE PERCENT 18 % (BEAKER) (test code = 430) MONOCYTES RELATIVE PERCENT 4 % (BEAKER) (test code = 431) EOSINOPHILS RELATIVE PERCENT 0 % (BEAKER) (test code = 432) BASOPHILS RELATIVE PERCENT 0 % (BEAKER) (test code = 437) NEUTROPHILS ABSOLUTE COUNT 10.54 K/ L 1.56-6.13 H (BEAKER) (test code = 670) LYMPHOCYTES ABSOLUTE COUNT 2.38 K/ L 1.18-3.74 (BEAKER) (test code = 414) MONOCYTES ABSOLUTE COUNT (BEAKER) 0.59 K/ L 0.24-0.36 H (test code = 415) EOSINOPHILS ABSOLUTE COUNT 0.01 K/ L 0.04-0.36 L (BEAKER) (test code = 416) BASOPHILS ABSOLUTE COUNT (BEAKER) 0.02 K/ L 0.01-0.08 (test code = 417) IMMATURE GRANULOCYTES-RELATIVE 1 % 0-1 PERCENT (BEAKER) (test code = 2801) [id number] 04:45:00 Test Item Value Reference Range Interpretation Comments PHOSPHORUS (BEAKER) (test code = 1.9 mg/dL 2.3-4.7 L 604) [id number] 04:45:00 Test Item Value Reference Range Interpretation Comments MAGNESIUM (BEAKER) (test code = 1.7 mg/dL 1.6-2.6 627) IRON, TIBC, % SAT. (WITHOUT FERRITIN)[id number] 04:41:00 Test Item Value Reference Range Interpretation Comments IRON (BEAKER) (test code = 547) 22.0 ug/dL 40.0-160.0 L TOTAL IRON BINDING CAPACITY 245 ug/dL 250-450 L (BEAKER) (test code = 769) IRON % SATURATION (2) (BEAKER) 9 % 20-55 L (test code = 2590) BLOOD GAS, [id number] 04:40:00 Test Item Value Reference Range Interpretation Comments PH VENOUS (BEAKER) (test code = 7.33 7.32-7.42 701) PCO2 VENOUS (BEAKER) (test code 23 mmHg 41-51 L = 755) PO2 VENOUS (BEAKER) (test code = 55 mmHg 25-40 H 702) O2 SATURATION VENOUS (BEAKER) 88.1 % 40.0-70.0 H (test code = 703) HCO3 VENOUS (BEAKER) (test code 12 mmol/L 21-29 L = 705) BASE EXCESS VENOUS (BEAKER) -12.7 mmol/L -2.0-3.0 L (test code = 704) PATIENT TEMPERATURE (BEAKER) 36.4 C (test code = 1818) FIO2 (BEAKER) (test code = 1819) 21.0 % LACTIC ACID, [id number] 04:32:00 Test Item Value Reference Range Interpretation Comments LACTATE BLOOD VENOUS (2) (BEAKER) 0.7 mmol/L 0.5-2.2 (test code = 2872) POCT-GLUCOSE [id number] 04:09:00 Test Item Value Reference Range Interpretation Comments POC-GLUCOSE METER 143 mg/dL 70-110 H TESTED AT [place] [address] ([facility]) (test code = [facility] 1538) [id number] POCT-GLUCOSE [id number] 03:19:00 Test Item Value Reference Range Interpretation Comments POC-GLUCOSE METER 140 mg/dL 70-110 H TESTED AT [place] [address] ([facility]) (test code = [facility] 1538) [address] POCT-GLUCOSE [id number] 02:25:00 Test Item Value Reference Range Interpretation Comments POC-GLUCOSE METER 150 mg/dL 70-110 H TESTED AT [place] [address] ([facility]) (test code = [facility] 1538) [address] BASIC METABOLIC [id number] 01:22:00 Test Item Value Reference Range Interpretation Comments SODIUM (BEAKER) 139 meq/L 136-145 (test code = 381) POTASSIUM (BEAKER) 4.0 meq/L 3.5-5.1 (test code = 379) CHLORIDE (BEAKER) 115 meq/L 98-107 H (test code = 382) CO2 (BEAKER) (test 10 meq/L 22-29 LL code = 355) BLOOD UREA NITROGEN 9 mg/dL 7-21 (BEAKER) (test code = 354) CREATININE (BEAKER) 1.04 mg/dL 0.57-1.25 (test code = 358) GLUCOSE RANDOM 150 mg/dL 70-105 H (BEAKER) (test code = 652) CALCIUM (BEAKER) 7.9 mg/dL 8.4-10.2 L (test code = 697) EGFR (BEAKER) (test 58 mL/min/1.73 ESTIMA CHANDLER GFR IS code = 1092) sq m NOT ACCURATE CREATININE CLEARANCE IN PREDICTING GLOMERULAR FILTRATION RATE . ESTIMATED GFR I S NOT APPLICABLE FOR DIALYSIS PATIEN TS. TROPONIN [id number] 01:16:00 Test Item Value Reference Range Interpretation Comments TROPONIN I (BEAKER) (test code = 0.01 ng/mL 0.00-0.03 397) Troponin I (TnI) levels must be interpreted in the context of the presenting symptoms and the clinical findings. Elevated TnI levels indicate myocardial damage, but are not specific for ischemic heart disease. Elevated TnI levels are seen in patients with other cardiac conditions (including myocarditis and congestive heart failure), and slight TnI elevations occur in patients with other conditions, including sepsis, renal failure, acidosis, acute neurological disease, and persistent tachyarrhythmia.POCT-GLUCOSE [id number] 01:15:00 Test Item Value Reference Range Interpretation Comments POC-GLUCOSE METER 155 mg/dL 70-110 H TESTED AT [place] [address] ([facility]) (test code = [facility] 1538) [address] [id number] 01:08:00 Test Item Value Reference Range Interpretation Comments PHOSPHORUS ([facility]) (test code = 2.1 mg/dL 2.3-4.7 L 604) [id number] 01:08:00 Test Item Value Reference Range Interpretation Comments MAGNESIUM ([facility]) (test code = 1.7 mg/dL 1.6-2.6 627) POCT-GLUCOSE [id number] 00:29:00 Test Item Value Reference Range Interpretation Comments POC-GLUCOSE METER 161 mg/dL 70-110 H TESTED AT [place] [address] ([facility]) (test code = [facility] 1538) [address] POCT-GLUCOSE [id number] 23:10:00 Test Item Value Reference Range Interpretation Comments POC-GLUCOSE METER 172 mg/dL 70-110 H TESTED AT [place] [address] ([facility]) (test code = [facility] 1538) [address] POCT-GLUCOSE [id number] 22:46:00 Test Item Value Reference Range Interpretation Comments POC-GLUCOSE METER 206 mg/dL 70-110 H TESTED AT [place] [address] ([facility]) (test code = [facility] 1538) [address] STREP PNEUMONIAE [id number] 21:51:00 Test Item Value Reference Range Interpretation Comments STREP PNEUMONIAE Presumptive negative Presumptive negative ANTIGEN ([facility]) for pneumococcal for pneumococcal (test code = 1615) pneumonia - see pneumonia - see comment commen Presumptive negative for pneumococcal pneumonia, suggesting no current or recent pneumococcal infection. Infection due to S. pneumoniae cannot be ruled out since the antigen present in the sample may be below the detection limit of the test. LEGIONELLA ANTIGEN, [id number] 21:50:00 Test Item Value Reference Range Interpretation Comments L. PNEUMOPHILA Negative - see Negative fo r L. SEROGP 1 UR AG comment pneumophila (BEAKER) (test code serogrou p 1 antigen, = 1156) suggesting no r ecent or current infe ction with this serog roup. Legionellosis c annot be ruled out si nce other serogroup s and species may cau se disease. LACTIC ACID, [id number] 21:31:00 Test Item Value Reference Range Interpretation Comments LACTATE BLOOD VENOUS (2) (BEAKER) 1.1 mmol/L 0.5-2.2 (test code = 2872) BASIC METABOLIC [id number] 21:28:00 Test Item Value Reference Range Interpretation Comments SODIUM (BEAKER) 139 meq/L 136-145 (test code = 381) POTASSIUM (BEAKER) 4.2 meq/L 3.5-5.1 (test code = 379) CHLORIDE (BEAKER) 114 meq/L 98-107 H (test code = 382) CO2 (BEAKER) (test 12 meq/L 22-29 L code = 355) BLOOD UREA NITROGEN 9 mg/dL 7-21 (BEAKER) (test code = 354) CREATININE (BEAKER) 1.16 mg/dL 0.57-1.25 (test code = 358) GLUCOSE RANDOM 196 mg/dL 70-105 H (BEAKER) (test code = 652) CALCIUM (BEAKER) 7.8 mg/dL 8.4-10.2 L (test code = 697) EGFR (BEAKER) (test 51 mL/min/1.73 ESTIMA CHANDLER GFR IS code = 1092) sq m NOT ACCURATE CREATININE CLEARANCE IN PREDICTING GLOMERULAR FILTRATION RATE . ESTIMATED GFR I S NOT APPLICABLE FOR DIALYSIS PATIEN TS. [id number] 21:27:00 Test Item Value Reference Range Interpretation Comments PHOSPHORUS (BEAKER) (test code = 2.1 mg/dL 2.3-4.7 L 604) [id number] 21:27:00 Test Item Value Reference Range Interpretation Comments MAGNESIUM (BEAKER) (test code = 2.0 mg/dL 1.6-2.6 627) POCT-GLUCOSE [id number] 20:35:00 Test Item Value Reference Range Interpretation Comments POC-GLUCOSE METER 218 mg/dL 70-110 H TESTED AT [facility] 6720 (BEAKER) (test code = [place] 1538) [id number] CREATININE, RANDOM [id number] 19:51:00 Test Item Value Reference Range Interpretation Comments CREATININE URINE (BEAKER) (test 25.6 mg/dL code = 375) Reference Range: No NormalsPROTEIN, RANDOM [id number] 19:51:00 Test Item Value Reference Range Interpretation Comments PROTEIN, URINE (BEAKER) (test code = 10 mg/dL 0-14 1569) SODIUM, RANDOM [id number] 19:51:00 Test Item Value Reference Range Interpretation Comments SODIUM URINE (BEAKER) (test code = 145 meq/L 243) Reference Range: No NormalsU/S, ABDOMINAL, [id number] 19:48:00Reason for exam:->nausea,vomitting,AKIShould this be performed at the bedside?->Yes FINAL REPORT Abdominal ultrasound, 08/21/2018 Grayscale and limited Doppler evaluations are performed. Liver is borderline enlarged at 16.6 cm in length. No focal masses. Gallstone is present near the neck. There are no changes of mural thickening or pericholecystic fluid. Commonbile duct is normal in caliber at 3 mm. Portal vein is patent and normal diameter at 8 mm. Portions of the head and neck of pancreas are seen and appear normal. Abdominal aorta is nondilated and the upper portion of the inferior vena cava is unremarkable. Spleen is normal size 10 cm in length. No focal masses. The kidneys are particularly well seen but appear to be normal in size is measuring 10.2 cmin length, bilaterally. No definite stones, masses or changes of hydronephrosis or identified. CONCLUSION: Cholelithiasis. Signed: Mynor Foster MDReport Verified Date/Time: 08/21/2018 19:48:18 Reading Location: [address] Consult Reading Room Electronically signed by: MYNOR FOSTER M.D. on 0 08/21/2018 07:48 PMLIPID [id number] 19:36:00 Test Item Value Reference Range Interpretation Comments TRIGLYCERIDES ([facility]) (test code = 189 mg/dL 540) CHOLESTEROL ([facility]) (test code = 148 mg/dL 631) HDL CHOLESTEROL ([facility]) (test code 30 mg/dL = 976) LDL CHOLESTEROL CALCULATED ([facility]) 80 mg/dL (test code = 633) Triglyceride Reference Range: Low Risk <150 Borderline 150-199 High Risk 200-499 Very High Risk >=500Cholesterol Reference Range: Low Risk <200 Borderline 200-239 High Risk >240HDL Cholesterol Reference Range: Low Risk >=60 High Risk <40LDL Cholesterol Reference Range: Optimal <100 Near Optimal 100-129 Borderline 130-159 High 160-189 Very High >=190LACTIC ACID, [id number] 19:33:00 Test Item Value Reference Range Interpretation Comments LACTATE BLOOD VENOUS (2) ([facility]) 1.1 mmol/L 0.5-2.2 (test code = 2872) POCT-GLUCOSE [id number] 19:13:00 Test Item Value Reference Range Interpretation Comments POC-GLUCOSE METER 257 mg/dL 70-110 H TESTED AT [place] [address] ([facility]) ([facility] 1538) [id number] POCT-GLUCOSE [id number] 18:23:00 Test Item Value Reference Range Interpretation Comments POC-GLUCOSE METER 308 mg/dL 70-110 H TESTED AT [place] [address] ([facility]) (test code = [facility] 1538) [address] POCT-GLUCOSE [id number] 17:27:00 Test Item Value Reference Range Interpretation Comments POC-GLUCOSE METER 324 mg/dL 70-110 H TESTED AT [place] [address] ([facility]) (test code = [facility] 1538) [address] [id number] 17:26:00 Test Item Value Reference Range Interpretation Comments PROCALCITONIN ([facility]) (test code 21.30 ng/mL <0.05 = 3036) SEPSIS RISK (ng/mL)Low: 0.05-0.50Intermediate: 0.51-2.00High: >=2.01TROPONIN [id number] 16:41:00 Test Item Value Reference Range Interpretation Comments TROPONIN I (BEAKER) (test code = 397) < ng/mL 0.00-0.03 Troponin I (TnI) levels must be interpreted in the context of the presenting symptoms and the clinical findings. Elevated TnI levels indicate myocardial damage, but are not specific for ischemic heart disease. Elevated TnI levels are seen in patients with other cardiac conditions (including myocarditis and congestive heart failure), and slight TnI elevations occur in patients with other conditions, including sepsis, renal failure, acidosis, acute neurological disease, and persistent tachyarrhythmia.BASIC METABOLIC [id number] 16:39:00 Test Item Value Reference Range Interpretation Comments SODIUM (BEAKER) 141 meq/L 136-145 (test code = 381) POTASSIUM (BEAKER) 4.5 meq/L 3.5-5.1 (test code = 379) CHLORIDE (BEAKER) 113 meq/L 98-107 H (test code = 382) CO2 (BEAKER) (test 10 meq/L 22-29 LL code = 355) BLOOD UREA NITROGEN 11 mg/dL 7-21 (BEAKER) (test code = 354) CREATININE (BEAKER) 1.28 mg/dL 0.57-1.25 H (test code = 358) GLUCOSE RANDOM 331 mg/dL 70-105 H (BEAKER) (test code = 652) CALCIUM (BEAKER) 7.9 mg/dL 8.4-10.2 L (test code = 697) EGFR (BEAKER) (test 46 mL/min/1.73 ESTIMA CHANDLER GFR IS code = 1092) sq m NOT ACCURATE CREATININE CLEARANCE IN PREDICTING GLOMERULAR FILTRATION RATE . ESTIMATED GFR I S NOT APPLICABLE FOR DIALYSIS PATIEN TS. BLOOD GAS, [id number] 16:33:00 Test Item Value Reference Range Interpretation Comments PH VENOUS (BEAKER) (test code = 7.28 7.32-7.42 L 701) PCO2 VENOUS (BEAKER) (test code 17 mmHg 41-51 LL = 755) PO2 VENOUS (BEAKER) (test code = 53 mmHg 25-40 H 702) O2 SATURATION VENOUS (BEAKER) 85.0 % 40.0-70.0 H (test code = 703) HCO3 VENOUS (BEAKER) (test code 8 mmol/L 21-29 LL = 705) BASE EXCESS VENOUS (BEAKER) -16.8 mmol/L -2.0-3.0 L (test code = 704) PATIENT TEMPERATURE (BEAKER) 36.7 C (test code = 1818) FIO2 (BEAKER) (test code = 1819) 21.0 % [id number] 16:32:00 Test Item Value Reference Range Interpretation Comments PHOSPHORUS (BEAKER) (test code = 3.0 mg/dL 2.3-4.7 604) [id number] 16:32:00 Test Item Value Reference Range Interpretation Comments MAGNESIUM (BEAKER) (test code = 1.9 mg/dL 1.6-2.6 627) LACTIC ACID, [id number] 16:30:00 Test Item Value Reference Range Interpretation Comments LACTATE BLOOD VENOUS (2) (BEAKER) 1.1 mmol/L 0.5-2.2 (test code = 2872) POCT-GLUCOSE [id number] 16:07:00 Test Item Value Reference Range Interpretation Comments POC-GLUCOSE METER 292 mg/dL 70-110 H TESTED AT [place] [address] ([facility]) (test code = [facility] 1538) [address] RAD, ABDOMEN/KUB, 1 VIEW [id number] 15:53:00Reason for exam:- >nausea,vomittingShould this be performed at the bedside?->YesFINAL REPORT Abdomen one view Comparison: None. Reason for exam: nausea,vomitting Findings: Bowel gas pattern is nonspecific, nonobstructive. No free air is identified. The visualized osseous structures are unremarkable. Signed: Kandy Black Verified Date/Time: 08/21/201815:53:49 Reading Location: [facility] C0[facility] Consult Reading Room POCT-GLUCOSE [id number] 15:02:00 Test Item Value Reference Range Interpretation Comments POC-GLUCOSE METER 284 mg/dL 70-110 H TESTED AT [place] [address] ([facility]) (test code = [place] 1538) [id number] RESPIRATORY PANEL [id number] 14:27:00 Test Item Value Reference Range Interpretation Comments HUMAN METAPNEUMOVIRUS Not detected Not detected, (BEAKER) (test code = 2683) Equivocal RHINOVIRUS (BEAKER) (test Not detected Not detected, code = 2684) Equivocal INFLUENZA A (BEAKER) (test Not detected Not detected, code = 2685) Equivocal INFLUENZA A (NO SUBTYPE) Not detected, (test code = 3606) Equivocal INFLUENZA A SUBTYPE H1 Not detected, (BEAKER) (test code = 2686) Equivocal INFLUENZA A SUBTYPE H3 Not detected, (BEAKER) (test code = 2687) Equivocal INFLUENZA A SUBTYPE H1-2009 Not detected, (BEAKER) (test code = 3198) Equivocal INFLUENZA B (BEAKER) (test Not detected Not detected, code = 2688) Equivocal RESPIRATORY SYNCYTIAL VIRUS Not detected Not detected, (BEAKER) (test code = 3199) Equivocal PARAINFLUENZA VIRUS 1 Not detected Not detected, (BEAKER) (test code = 2691) Equivocal PARAINFLUENZA VIRUS 2 Not detected Not detected, (BEAKER) (test code = 2692) Equivocal PARAINFLUENZA VIRUS 3 Not detected Not detected, (BEAKER) (test code = 2693) Equivocal PARAINFLUENZA VIRUS 4 Not detected Not detected, (BEAKER) (test code = 3200) Equivocal ADENOVIRUS (BEAKER) (test Not detected Not detected, code = 2694) Equivocal CORONAVIRUS 229E (BEAKER) Not detected Not detected, (test code = 3201) Equivocal CORONAVIRUS HKU1 (BEAKER) Not detected Not detected, (test code = 3202) Equivocal CORONAVIRUS NL63 (BEAKER) Not detected Not detected, (test code = 3203) Equivocal CORONAVIRUS OC43 (BEAKER) Not detected Not detected, (test code = 3204) Equivocal BORDETELLA PERTUSSIS Not detected Not detected, (BEAKER) (test code = 3205) Equivocal CHLAMYDOPHILA PNEUMONIAE Not detected Not detected, (BEAKER) (test code = 3206) Equivocal MYCOPLASMA PNEUMONIAE Not detected Not detected, (BEAKER) (test code = 3207) Equivocal Other viruses and bacteria not targeted by this PCR panel cannot be excluded; therefore clinical correlation and follow up of serology, culture results, and other molecular studies is required. The results are not intended to be used as the sole means for clinical diagnosis or patient management decisions. This sample was tested at the [facility] Molecular Diagnostics Laboratory using the [employer] FilmArray Respiratory Panel. It is FDA cleared and has been verified and approved by the [facility] for clinical use on nasopharyngeal swab specimens.The performance of the FilmArrayRP has not been established in individuals who received influenza vaccine. Recent administration ofa nasal influenza vaccine may cause false positive results for Influenza A and/orInfluenza B.POCT-GLUCOSE [id number] 14:07:00 Test Item Value Reference Range Interpretation Comments POC-GLUCOSE METER 286 mg/dL 70-110 H TESTED AT [place] [address] (BEAKER) (test code = [facility] 1538) [id number] POCT-GLUCOSE [id number] 13:21:00 Test Item Value Reference Range Interpretation Comments POC-GLUCOSE METER 275 mg/dL 70-110 H TEST[facility] AT [place] [address] [facility] (test code = [facility] 1538) [address] BLOOD GAS, [id number] 13:10:00 Test Item Value Reference Range Interpretation Comments PH VENOUS (BEAKER) (test code = 7.30 7.32-7.42 L 701) PCO2 VENOUS (BEAKER) (test code 19 mmHg 41-51 LL = 755) PO2 VENOUS (BEAKER) (test code = 64 mmHg 25-40 H 702) O2 SATURATION VENOUS (BEAKER) 90.7 % 40.0-70.0 H (test code = 703) HCO3 VENOUS (BEAKER) (test code 9 mmol/L 21-29 LL = 705) BASE EXCESS VENOUS (BEAKER) -15.5 mmol/L -2.0-3.0 L (test code = 704) PATIENT TEMPERATURE (BEAKER) 37.1 C (test code = 1818) FIO2 (BEAKER) (test code = 1819) 21.0 % BASIC METABOLIC [id number] 12:58:00 Test Item Value Reference Range Interpretation Comments SODIUM (BEAKER) 142 meq/L 136-145 (test code = 381) POTASSIUM (BEAKER) 4.0 meq/L 3.5-5.1 (test code = 379) CHLORIDE (BEAKER) 113 meq/L 98-107 H (test code = 382) CO2 (BEAKER) (test 9 meq/L 22-29 LL code = 355) BLOOD UREA NITROGEN 13 mg/dL 7-21 (BEAKER) (test code = 354) CREATININE (BEAKER) 1.25 mg/dL 0.57-1.25 (test code = 358) GLUCOSE RANDOM 303 mg/dL 70-105 H (BEAKER) (test code = 652) CALCIUM (BEAKER) 7.9 mg/dL 8.4-10.2 L (test code = 697) EGFR (BEAKER) (test 47 mL/min/1.73 ESTIMA CHANDLER GFR IS code = 1092) sq m NOT ACCURATE CREATININE CLEARANCE IN PREDICTING GLOMERULAR FILTRATION RATE . ESTIMATED GFR I S NOT APPLICABLE FOR DIALYSIS PATIEN TS. [id number] 12:55:00 Test Item Value Reference Range Interpretation Comments PHOSPHORUS (BEAKER) (test code = 1.9 mg/dL 2.3-4.7 L 604) LACTIC ACID, [id number] 12:54:00 Test Item Value Reference Range Interpretation Comments LACTATE BLOOD VENOUS (2) (BEAKER) 2.0 mmol/L 0.5-2.2 (test code = 2872) POCT-GLUCOSE [id number] 12:25:00 Test Item Value Reference Range Interpretation Comments POC-GLUCOSE METER 337 mg/dL 70-110 H TESTED AT [place] [id number] (BEAKER) (test code = T[place] 1538) [id number] POCT-GLUCOSE [id number] 11:20:00 Test Item Value Reference Range Interpretation Comments POC-GLUCOSE METER 282 mg/dL 70-110 H TESTED AT [facility] 67 (BEAKER) (test code = TUNDE Dickey [facility] 1538) [id number] URINALYSIS W/ REFLEX URINE [id number] 11:16:00 Test Item Value Reference Range Interpretation Comments COLOR (BEAKER) (test code = 470) Colorless CLARITY (BEAKER) (test code = Clear 469) SPECIFIC GRAVITY UA (BEAKER) 1.018 1.001-1.035 (test code = 468) PH UA (BEAKER) (test code = 467) 5.0 5.0-8.0 PROTEIN UA (BEAKER) (test code = 10 mg/dL Negative A 464) GLUCOSE UA (BEAKER) (test code = >1000 mg/dL Negative A 365) KETONES UA (BEAKER) (test code = >150 mg/dL Negative A 371) BILIRUBIN UA (BEAKER) (test code Negative Negative = 462) BLOOD UA (BEAKER) (test code = Negative Negative 461) NITRITE UA (BEAKER) (test code = Negative Negative 465) LEUKOCYTE ESTERASE UA (BEAKER) Negative Negative (test code = 466) UROBILINOGEN UA (BEAKER) (test 0.2 mg/dL 0.2-1.0 code = 463) RBC UA (BEAKER) (test code = 519) 0 /HPF WBC UA (BEAKER) (test code = 520) < /HPF BACTERIA (BEAKER) (test code = Rare 517) MUCUS (BEAKER) (test code = 1574) Rare SOURCE(BEAKER) (test code = 2795) SCREEN, [id number] 11:16:00 Test Item Value Reference Range Interpretation Comments TEST URINE (BEAKER) (test Negative code = 583) COMPREHENSIVE METABOLIC [id number] 11:15:00 Test Item Value Reference Range Interpretation Comments TOTAL PROTEIN 5.7 gm/dL 6.0-8.3 L (BEAKER) (test code = 770) ALBUMIN (BEAKER) 3.3 g/dL 3.5-5.0 L (test code = 1145) ALKALINE PHOSPHATASE 129 U/L 40-150 (BEAKER) (test code = 346) BILIRUBIN TOTAL 0.1 mg/dL 0.2-1.2 L (BEAKER) (test code = 377) SODIUM (BEAKER) (test 142 meq/L 136-145 code = 381) POTASSIUM (BEAKER) 4.3 meq/L 3.5-5.1 (test code = 379) CHLORIDE (BEAKER) 112 meq/L 98-107 H (test code = 382) CO2 (BEAKER) (test 8 meq/L 22-29 LL code = 355) BLOOD UREA NITROGEN 15 mg/dL 7-21 (BEAKER) (test code = 354) CREATININE (BEAKER) 1.36 mg/dL 0.57-1.25 H (test code = 358) GLUCOSE RANDOM 447 mg/dL 70-105 HH (BEAKER) (test code = 652) CALCIUM (BEAKER) 7.8 mg/dL 8.4-10.2 L (test code = 697) AST (SGOT) (BEAKER) 9 U/L 5-34 (test code = 353) ALT (SGPT) (BEAKER) 12 U/L 6-55 (test code = 347) EGFR (BEAKER) (test 43 mL/min/1.73 ESTIMA CHANDLER GFR IS code = 1092) sq m NOT ACCURATE CREATININE CLEARANCE IN PREDICTING GLOMERULAR FILTRATION RATE . ESTIMATED GFR I S NOT APPLICABLE FOR DIALYSIS PATIEN TS. KETONE, [id number] 11:15:00 Test Item Value Reference Range Interpretation Comments KETONES, BLOOD (BEAKER) (test code 4.9 mmol/L <0.4 H = 1103) TSH/FREE T4 IF [id number] 11:10:00 Test Item Value Reference Range Interpretation Comments THYROID STIMULATING HORMONE 0.85 uIU/mL 0.35-4.94 (BEAKER) (test code = 772) TROPONIN [id number] 10:56:00 Test Item Value Reference Range Interpretation Comments TROPONIN I (BEAKER) (test code = 397) < ng/mL 0.00-0.03 Troponin I (TnI) levels must be interpreted in the context of the presenting symptoms and the clinical findings. Elevated TnI levels indicate myocardial damage, but are not specific for ischemic heart disease. Elevated TnI levels are seen in patients with other cardiac conditions (including myocarditis and congestive heart failure), and slight TnI elevations occur in patients with other conditions, including sepsis, renal failure, acidosis, acute neurological disease, and persistent tachyarrhythmia.[id number] 10:53:00 Test Item Value Reference Range Interpretation Comments PHOSPHORUS (BEAKER) (test code = 2.9 mg/dL 2.3-4.7 604) [id number] 10:53:00 Test Item Value Reference Range Interpretation Comments MAGNESIUM (BEAKER) (test code = 1.5 mg/dL 1.6-2.6 L 627) [id number] 10:53:00 Test Item Value Reference Range Interpretation Comments AMYLASE (BEAKER) (test code = 349) 16 U/L 25-125 L [id number] 10:53:00 Test Item Value Reference Range Interpretation Comments LIPASE (BEAKER) (test code = 749) 40 U/L 8-78 PROTHROMBIN [id number] 10:49:00 Test Item Value Reference Range Interpretation Comments PROTIME (BEAKER) (test code = 14.9 seconds 11.7-14.7 H 759) INR (BEAKER) (test code = 370) 1.2 <=5.9 RECOMMENDED COUMADIN/WARFARIN INR THERAPY RANGESSTANDARD DOSE: 2.0 - 3.0 Includes: PROPHYLAXIS forvenous thrombosis, systemic embolization; TREATMENT for venous thrombosis and/or pulmonary embolus.HIGH RISK: Target INR is 2.5-3.5 for patients with mechanical heart valves.LACTIC ACID, [id number] 10:47:00 Test Item Value Reference Range Interpretation Comments LACTATE BLOOD VENOUS (2) (BEAKER) 3.0 mmol/L 0.5-2.2 H (test code = 2872) POCT-GLUCOSE [id number] 10:45:00 Test Item Value Reference Range Interpretation Comments POC-GLUCOSE METER 355 mg/dL 70-110 H Notified R N MD/TESTED (BEAKER) (test code = AT [facility] [address] [facility] 1538) [facility] 7703 0 CBC W/PLT COUNT & AUTO [id number] 10:36:00 Test Item Value Reference Range Interpretation Comments WHITE BLOOD CELL COUNT (BEAKER) 18.2 K/ L 3.5-10.5 H (test code = 775) RED BLOOD CELL COUNT (BEAKER) 3.74 M/ L 3.93-5.22 L (test code = 761) HEMOGLOBIN (BEAKER) (test code = 10.4 GM/DL 11.2-15.7 L 410) HEMATOCRIT (BEAKER) (test code = 33.4 % 34.1-44.9 L 411) MEAN CORPUSCULAR VOLUME (BEAKER) 89.3 fL 79.4-94.8 (test code = 753) MEAN CORPUSCULAR HEMOGLOBIN 27.8 pg 25.6-32.2 (BEAKER) (test code = 751) MEAN CORPUSCULAR HEMOGLOBIN CONC 31.1 GM/DL 32.2-35.5 L (BEAKER) (test code = 752) RED CELL DISTRIBUTION WIDTH 15.9 % 11.7-14.4 H (BEAKER) (test code = 412) PLATELET COUNT (BEAKER) (test 291 K/CU MM 150-450 code = 756) MEAN PLATELET VOLUME (BEAKER) 10.5 fL 9.4-12.3 (test code = 754) NUCLEATED RED BLOOD CELLS 0 /100 WBC 0-0 (BEAKER) (test code = 413) NEUTROPHILS RELATIVE PERCENT 84 % (BEAKER) (test code = 429) LYMPHOCYTES RELATIVE PERCENT 11 % (BEAKER) (test code = 430) MONOCYTES RELATIVE PERCENT 4 % (BEAKER) (test code = 431) EOSINOPHILS RELATIVE PERCENT 0 % (BEAKER) (test code = 432) BASOPHILS RELATIVE PERCENT 0 % (BEAKER) (test code = 437) NEUTROPHILS ABSOLUTE COUNT 15.26 K/ L 1.56-6.13 H (BEAKER) (test code = 670) LYMPHOCYTES ABSOLUTE COUNT 1.96 K/ L 1.18-3.74 (BEAKER) (test code = 414) MONOCYTES ABSOLUTE COUNT (BEAKER) 0.77 K/ L 0.24-0.36 H (test code = 415) EOSINOPHILS ABSOLUTE COUNT 0.00 K/ L 0.04-0.36 L (BEAKER) (test code = 416) BASOPHILS ABSOLUTE COUNT (BEAKER) 0.03 K/ L 0.01-0.08 (test code = 417) IMMATURE GRANULOCYTES-RELATIVE 1 % 0-1 PERCENT (BEAKER) (test code = 2801) RAPID INFLUENZA A&B [id number] 10:29:00 Test Item Value Reference Range Interpretation Comments RAPID INFLUENZA A AG (BEAKER) Negative Negative, Inconclusive (test code = 1622) RAPID INFLUENZA B AG (BEAKER) Negative Negative, Inconclusive (test code = 1623) RAD, CHEST, 1 VIEW, NON [id number] 10:24:00?pnaReason for exam:->chest pain,sobShould this be performed at the bedside?->YesFINAL REPORT Chest one view. Clinical history: chest pain,sob Comparison: No priors Discussion: A frontal chest is provided. Cardiomediastinal contours are unremarkable, allowing for portable technique. There is no evidence of vascular congestion, consolidation, pneumothorax orsignificant effusion. No acute bony abnormality. Signed: Kandy Blackort Verified Date/Time: 08/21/2018 10:24:52 Reading Location: [facility] Radiology Reading Room BLOOD GAS, [id number] 10:17:00 Test Item Value Reference Range Interpretation Comments PH VENOUS (BEAKER) (test code = 7.19 7.32-7.42 LL 701) PCO2 VENOUS (BEAKER) (test code 19 mmHg 41-51 LL = 755) PO2 VENOUS (BEAKER) (test code = 65 mmHg 25-40 H 702) O2 SATURATION VENOUS (BEAKER) 89.2 % 40.0-70.0 H (test code = 703) HCO3 VENOUS (BEAKER) (test code 7 mmol/L 21-29 LL = 705) BASE EXCESS VENOUS (BEAKER) -19.2 mmol/L -2.0-3.0 L (test code = 704) PATIENT TEMPERATURE (BEAKER) 36.7 C (test code = 1818) FIO2 (BEAKER) (test code = 1819) 21.0 % POCT-GLUCOSE [id number] 09:47:00 Test Item Value Reference Range Interpretation Comments POC-GLUCOSE METER 430 mg/dL 70-110 Notified R Gris FUENTES/TESTED (BEAKER) (test code = AT [place] [id number] [facility] 6199) [facility] 7703 0
[2020-10-14] MEDS ORDERED: NA CHLORIDE 0.9% 2,000 ML ONE (21:23)
[2020-10-14] MEDS ORDERED: ONDANSETRON 4 MG/2 ML VIAL ONE (21:46)
[2020-10-14] MEDS ORDERED: FAMOTIDINE 20 MG/2 ML VIAL IV ONE (21:47)
[2020-10-14 22:03] LABS: Absolute Lymphocytes (CBC) 2.8 K/uL (0.7-4.9); Basophils % 0.5 % (0-1.3); Hematocrit 34.9 % (36.0-45.0); Lymphocytes % 45.5 % (15.3-44.8); RBC Red Blood Cell Count 4.06 M/uL (3.86-4.86)
[2020-10-14 22:04] LABS: Protime INR 0.97
--- NOTE | 2020-10-14 22:06 | RAD REPORT ---
EXAM DESCRIPTION: RAD - Chest Single View - 10/14/2020 9:27 pm CLINICAL HISTORY: Generalized weakness, shortness of breath COMPARISON: Portable August 2018 TECHNIQUE: AP portable chest image was obtained 10/14/2020 9:27 pm . FINDINGS: Lungs are clear. Heart and vasculature are normal. No measurable pleural effusion and no p neumothorax. No acute bony abnormality seen. No acute aortic findings suspected. IMPRESSION: No acute cardiopulmonary process. No significant change from comparison study.
--- NOTE | 2020-10-14 22:07 | RAD REPORT ---
EXAM DESCRIPTION: CT - Head Brain Wo Cont - 10/14/2020 9:43 pm CLINICAL HISTORY: TRAUMA, fall with head injury COMPARISON: Head Brain Wo Cont dated 08/21/2018 TECHNIQUE: Axial 5 mm thick images of the head were obtained without IV contrast. All CT scans are performed using dose optimization technique as appropriate and may include automated exposure control or mA/KV adjustment according to patient size. FINDINGS: No intracranial hemorrhage, mass, edema or shift of mid-line structures. No acute infarcti on changes seen. No abnormal extra-axial fluid collections. Ventricles are normal. Mastoid air cells and visualized portions of the paranasal sinuses are clear. No acute bony findings. No significant change from comparison. IMPRESSION: Negative non-contrast CT head examination.
[2020-10-14 22:24] LABS: ALT/SGPT 19 U/L (12-78); AST/SGOT 10 U/L (15-37); Albumin 2.9 g/dL (3.4-5.0); Alkaline Phosphatase 122 U/L (45-117); BUN Blood Urea Nitrogen 28 mg/dL (7-18); Bicarbonate 20 mmol/L (21-32); Bilirubin Direct < 0.1 mg/dL (0-0.2); Bilirubin Total 0.4 mg/dL (0.2-1.0); Glucose Level 390 mg/dL (74-106); Magnesium 2.1 mg/dL (1.8-2.4); NT PRO-BNP 86 pg/mL (<125); Potassium 3.3 mmol/L (3.5-5.1); Protein, Total 6.1 g/dL (6.4-8.2); Sodium Level 130 mmol/L (136-145); Troponin (Emerg Dept Use Only) < 0.02 ng/mL (0.0-0.045)
[2020-10-14 22:44] LABS: Arterial Blood Carboxyhemoglob 1.3 % (0-1.5); Blood Gas Oxyhemoglobin 95.8 % (94-97); Blood O2 Saturation 98.3 % (92-98.5)
[2020-10-14] MEDS ORDERED: NA CHLORIDE 0.9% 100 ML ONE (23:08)
[2020-10-14] MEDS ORDERED: INSULIN -REGULAR HUMAN 50 UNIT/0.5 ML ML ONE (23:08)
[2020-10-15] MEDS ORDERED: NA CHLORIDE 0.9% 1,000 ML ONE (00:20)
[2020-10-15 01:28] LABS: Urine Blood 2+ (Negative); Urine Glucose 2+ (Negative); Urine Protein Trace (Negative); Urine pH 5.5 (5.0-7.0)
[2020-10-15 02:15] LABS: Potassium 3.8 mmol/L (3.5-5.1)
--- NOTE | 2020-10-15 03:33 | EDPHYS ---
Physician Documentation [facility] Name: Michael Horne Age: 45 yrs Sex: Female : 1975 Arrival Date: 10/14/2020 Time: 20:45 Bed 16 Private MD: ED Physician Iván Martin HPI: 10/14 21:19 This 45 yrs old Female presents to ER via Wheelchair with complaints of mh7 General Weakness, Fall Injury. 21:20 Details of fall: The patient fell from an upright position, while walking. Onset: The mh7 symptoms/episode began/occurred yesterday. Associated injuries: The patient sustained injury to the head, contusion. Severity of symptoms: At their worst the symptoms were moderate, last night, in the emergency department the symptoms are unchanged. States multiple falls yesterday and once today due to losing balance. She states that she feels generally weak and fatigue over past 2 days. She thinks her symptoms may be due to DKA. She has had some subjective fever, nausea, and vomiting. No headache, chest pain, abdominal pain, cough, diarrhea, numbness/tingling.. 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 - Social history:: Smoking status: Patient/guardian denies using tobacco, but has a distant history of tobacco abuse. ROS: 21:20 Eyes: Negative for injury, pain, redness, and discharge. mh7 21:20 Neck: Negative for injury, pain, and swelling, Cardiovascular: Negative for chest pain, palpitations, and edema, Respiratory: Negative for shortness of breath, cough, wheezing, and pleuritic chest pain, Back: Negative for injury and pain, : Negative for injury, bleeding, discharge, and swelling, MS/Extremity: Negative for injury and deformity, Skin: Negative for injury, rash, and discoloration, Psych: Negative for depression, anxiety, suicide ideation, homicidal ideation, and hallucinations, Allergy/Immunology: Negative for hives, rash, and allergies. 21:20 ENT: Positive for sore throat. 21:20 Endocrine: Positive for polydipsia. Exam: 21:20 Head/Face: Normocephalic, atraumatic. Eyes: Pupils equal round and reactive to light, mh7 extra-ocular motions intact. Lids and lashes normal. Conjunctiva and sclera are non-icteric and not injected. Cornea within normal limits. Periorbital areas with no swelling, redness, or edema. Neck: Trachea midline, no thyromegaly or masses palpated, and no cervical lymphadenopathy. Supple, full range of motion without nuchal rigidity, or vertebral point tenderness. No Meningismus. Chest/axilla: Normal chest wall appearance and motion. Nontender with no deformity. No lesions are appreciated. 21:20 Respiratory: Lungs have equal breath sounds bilaterally, clear to auscultation and percussion. No rales, rhonchi or wheezes noted. No increased work of breathing, no retractions or nasal flaring. Abdomen/GI: Soft, non-tender, with normal bowel sounds. No distension or tympany. No guarding or rebound. No evidence of tenderness throughout. Back: No spinal tenderness. No costovertebral tenderness. Full range of motion. Skin: Warm, dry with normal turgor. Normal color with no rashes, no lesions, and no evidence of cellulitis. MS/ Extremity: Pulses equal, no cyanosis. Neurovascular intact. Full, normal range of motion. Neuro: Awake and alert, GCS 15, oriented to person, place, time, and situation. Cranial nerves II-XII grossly intact. Motor strength 5/5 in all extremities. Sensory grossly intact. Cerebellar exam normal. Normal gait. Psych: Awake, alert, with orientation to person, place and time. Behavior, mood, and affect are within normal limits. 21:20 Constitutional: The patient appears in no acute distress, alert, awake, obviously ill. 21:20 Cardiovascular: Rate: tachycardic, Rhythm: regular, Pulses: no pulse deficits are appreciated, Heart sounds: normal, normal S1and S2, Edema: is not appreciated, JVD: is not appreciated. Vital Signs: 20:53 BP 94 / 79; Pulse 124; Resp 20; Temp 97.1; Pulse Ox 100% on R/A; Weight 81.65 kg (R); ca1 Height 5 ft. 8 in. (172.72 cm) (R); Pain 0/10; 22:03 BP 110 / 68; Pulse 103; Resp 18; Temp 97.6; Pulse Ox 98% on R/A; ak2 10/15 01:16 BP 115 / 76; Pulse 89; Resp 20; Temp 98; Pulse Ox 100% on R/A; ak2 02:59 BP 110 / 64; Pulse 88; Resp 16; Pulse Ox 100% on R/A; ak2 10/14 20:53 Body Mass Index 27.37 (81.65 kg, 172.72 cm) ca1 MDM: 03:29 Differential diagnosis: abrasion, closed head injury, contusion, DKA, Dehydration, mh7 Generalized Weakness. Data reviewed: vital signs, nurses notes, old medical records, lab test result(s), cardiac enzymes, CBC, electrolytes, urinalysis, EKG, radiologic studies, CT scan, plain films. Data interpreted: Pulse oximetry: on room air is 100 %. Interpretation: normal. Counseling: I had a detailed discussion with the patient and/or guardian regarding: the historical points, exam findings, and any diagnostic results supporting the discharge/admit diagnosis, lab results, radiology results, the need for outpatient follow up, to return to the emergency department if symptoms worsen or persist or if there are any questions or concerns that arise at home. Response to treatment: the patient's symptoms have resolved after treatment, the patient's blood pressure is in an acceptable range, mental status has returned to baseline, the patient no longer shows bradycardia, the patient is not short of breath, the patient is not tachycardic, the patient's pain is gone, the patient's temperature has normalized. Refusal of service: The patient/guardian displays adequate decision making capability and despite a detailed discussion of alternatives, benefits, risks, and consequences refuses: Admission to the hospital for further work-up and treatment. 03:32 Patient medically screened. [facility] 10/14 21:12 Order name: Glucose, Ancillary Testing; Complete Time: 21:18 EDNH 10/14 21:13 Order name: Basic Metabolic Panel [facility] 10/14 21:13 Order name: CBC with Diff [facility] 10/14 21:13 Order name: LFT's; Complete Time: 22:33 [facility] 10/14 21:13 Order name: Magnesium; Complete Time: 22:33 [facility] 10/14 21:13 Order name: NT PRO-BNP; Complete Time: 22:33 [facility] 10/14 21:13 Order name: PT-INR; Complete Time: 22:21 [facility] 10/14 21:13 Order name: Troponin (emerg Dept Use Only); Complete Time: 22:33 [facility] 10/14 21:13 Order name: Test, Serum; Complete Time: 01:12 [facility] 10/14 21:13 Order name: Basic Metabolic Panel; Complete Time: 22:33 [facility] 10/14 21:13 Order name: CBC with Automated Diff; Complete Time: 22:21 [facility] 10/14 21:14 Order name: Arterial Blood Gas; Complete Time: 22:48 [facility] 10/14 21:14 Order name: Lactate; Complete Time: 22:59 [facility] 10/14 21:14 Order name: Procalcitonin; Complete Time: 22:50 [facility] 10/14 21:13 Order name: XRAY Chest (1 view); Complete Time: 22:07 [facility] 10/14 21:14 Order name: Blood Culture Adult (2) [facility] 10/14 21:16 Order name: Influenza Screen (a \T\ B); Complete Time: 23:39 [facility] 10/14 21:16 Order name: Rapid Strep; Complete Time: 23:39 [facility] 10/14 21:16 Order name: Lipase; Complete Time: 22:21 [facility] 10/14 21:26 Order name: Ketone, Serum [facility] 10/14 21:27 Order name: Acetone Level; Complete Time: 22:25 [facility] 10/14 23:01 Order name: Glucose, Ancillary Testing; Complete Time: 23:39 [facility] 10/14 23:30 Order name: SARS-COV-2 RT PCR; Complete Time: 23:39 [facility] 10/14 23:32 Order name: Throat Culture [facility] 10/15 01:00 Order name: Glucose, Ancillary Testing; Complete Time: 01:12 EDMS 10/15 01:27 Order name: Urine Dipstick-Ancillary; Complete Time: 01:38 EDNH 10/15 01:35 Order name: Urine --Ancillary (enter results); Complete Time: 02:21 tt3 10/15 01:40 Order name: BMP; Complete Time: 02:21 ak2 10/15 02:01 Order name: Lactate Sepsis 2 HR Follow-up; Complete Time: 02:21 [facility] 10/14 21:13 Order name: EKG; Complete Time: 21:14 [facility] 10/14 21:13 Order name: Cardiac monitoring; Complete Time: 01:30 [facility] 10/14 21:13 Order name: EKG - Nurse/Tech; Complete Time: 01:30 [facility] 10/14 21:13 Order name: Labs collected and sent; Complete Time: 01:30 [facility] 10/14 21:13 Order name: O2 Per Protocol; Complete Time: 01:30 [facility] 10/14 21:13 Order name: O2 Sat Monitoring; Complete Time: 01:30 [facility] 10/14 21:13 Order name: Urine Dipstick-Ancillary (obtain specimen) [facility] 10/14 21:15 Order name: CT Head Brain wo Cont; Complete Time: 22:21 [facility] Administered Medications: 10/14 21:42 Drug: NS 0.9% 1000 ml Route: IV; Rate: 1000 ml; Site: right antecubital; ak2 21:42 Drug: Zofran (Ondansetron) 4 mg Route: IVP; Site: right antecubital; ak2 21:42 Drug: Pepcid (famotidine) 20 mg Route: IVP; Site: right antecubital; ak2 23:58 Not Given (B, hold per physiciann): Insulin Regular Human 10 units IVP once ak2 Disposition Summary: 10/15/20 03:32 Discharge Ordered Location: Home [facility] Problem: new [facility] Symptoms: have improved [facility] Condition: Stable [facility] Diagnosis - Dehydration 7 - Other specified diabetes mellitus with hyperglycemia [facility] Followup: [facility] - With: Private Physician - When: 1 - 2 days - Reason: Worsening of condition, Recheck today's complaints, Continuance of care, Re-evaluation by your physician Discharge Instructions: - Discharge Summary Sheet [facility] - Hyperglycemia [facility] - Dehydration, Adult, Jbuv-uz-Pify [facility] Forms: - Medication Reconciliation Form [facility] - Thank You Letter [facility] - Antibiotic Education [facility] - Prescription Opioid Use [facility] Signatures: Dispatcher [employer] EDMS Yaniv Stern, CROSSING TENDER-C CROSSING TENDER-Cla1 Alie White RN RN ca1 Iván Martin MD MD 7 Owen Lynn2 Corrections: (The following items were deleted from the chart) 22:03 21:16 CORONAVIRUS+MR.LAB.BRZ ordered. EDMS EDMS
--- NOTE | 2020-10-15 03:33 | ER ---
Nurse's Notes [facility] Name: Michael Horne Age: 45 yrs Sex: Female : 1975 Arrival Date: 10/14/2020 Time: 20:45 Bed 16 Private MD: Diagnosis: Dehydration;Other specified diabetes mellitus with hyperglycemia Presentation: 10/14 20:53 Chief complaint: Patient states: I fell 3 times today and once last night. I just lost ca1 my balance and I feel very week. I am type 1 diabetic and this feels like DKA. Coronavirus screen: Client denies travel out of the [place] in the last 14 days. At this time, the client does not indicate any symptoms associated with coronavirus-19. Ebola Screen: Patient negative for fever greater than or equal to 101.5 degrees Fahrenheit, and additional compatible Ebola Virus Disease symptoms Patient denies exposure to infectious person. Patient denies travel to an Ebola-affected area in the 21 days before illness onset. No symptoms or risks identified at this time. Initial Sepsis Screen: Does the patient meet any 2 criteria? No. Patient's initial sepsis screen is negative. Does the patient have a suspected source of infection? No. Patient's initial sepsis screen is negative. Risk Assessment: Do you want to hurt yourself or someone else? Patient reports no desire to harm self or others. Onset of symptoms was October 14, 2020. 20:53 Method Of Arrival: Wheelchair ca1 20:53 Acuity: MAEGAN 2 ca1 Triage Assessment: 22:07 General: Behavior is calm, cooperative. 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 - Social history:: Smoking status: Patient/guardian denies using tobacco, but has a distant history of tobacco abuse. Screenin:04 Abuse screen: Denies threats or abuse. Denies injuries from another. Nutritional ak2 screening: No deficits noted. Tuberculosis screening: No symptoms or risk factors identified. Fall Risk None identified. Assessment: 22:02 Reassessment: Patient and/or family updated on plan of care and expected duration. Pain ak2 level reassessed. General: Appears in no apparent distress. Pain: Denies pain. Neuro: No deficits noted. Cardiovascular: Rhythm is sinus tachycardia. Respiratory: No deficits noted. 10/15 01:16 Reassessment: Patient and/or family updated on plan of care and expected duration. Pain ak2 level reassessed. 02:59 Reassessment: Patient and/or family updated on plan of care and expected duration. Pain ak2 level reassessed. Vital Signs: 10/14 20:53 BP 94 / 79; Pulse 124; Resp 20; Temp 97.1; Pulse Ox 100% on R/A; Weight 81.65 kg (R); ca1 Height 5 ft. 8 in. (172.72 cm) (R); Pain 0/10; 22:03 BP 110 / 68; Pulse 103; Resp 18; Temp 97.6; Pulse Ox 98% on R/A; ak2 10/15 01:16 BP 115 / 76; Pulse 89; Resp 20; Temp 98; Pulse Ox 100% on R/A; ak2 02:59 BP 110 / 64; Pulse 88; Resp 16; Pulse Ox 100% on R/A; ak2 10/14 20:53 Body Mass Index 27.37 (81.65 kg, 172.72 cm) ca1 ED Course: 10/14 20:45 Patient arrived in ED. am4 20:55 Triage completed. ca1 20:56 Arm band placed on right wrist. ca1 20:59 Iván Martin MD is Attending Physician. mh7 21:00 Owen Lynn is Primary Nurse. ak2 21:27 XRAY Chest (1 view) In Process Unspecified. EDMS 21:43 CT Head Brain wo Cont In Process Unspecified. EDMS 22:04 Patient has correct armband on for positive identification. ak2 22:04 No provider procedures requiring assistance completed. Inserted saline lock: 18 gauge ak2 in right antecubital area, using aseptic technique. Administered Medications: 21:42 Drug: NS 0.9% 1000 ml Route: IV; Rate: 1000 ml; Site: right antecubital; ak2 21:42 Drug: Zofran (Ondansetron) 4 mg Route: IVP; Site: right antecubital; ak2 21:42 Drug: Pepcid (famotidine) 20 mg Route: IVP; Site: right antecubital; ak2 23:58 Not Given (B, hold per physiciann): Insulin Regular Human 10 units IVP once ak2 Outcome: 10/15 03:32 Discharge ordered by . Teo 03:40 Discharged to home ambulatory. ak2 03:40 Condition: good 03:40 Discharge instructions given to patient. 03:40 Patient left the ED. ak2 04:11 Patient left the ED. bb Signatures: Dispatcher [employer] EDPeg Tanner RN RN bb Acob, Cheryl, RN RN ca1 Holmes, Maurice, MD MD mh7 Martinez, Ashley am4 Kapolka, Anthony id2
[2020-10-15 03:52] VITALS: TEMP 98; O2SAT 100
[2020-10-15 03:54] VITALS: BP 110/64
--- NOTE | 2020-10-16 16:10 | EKG ---
Test Date: 2020-10-14 Test Time: 21:05:12 Curtain Framer: HAYES MEASUREMENT RESULTS: Intervals: Rate: 120 IN: 130 QRSD: 96 QT: 336 QTc: 474 [place]: P: IN: 130 QRS: 148 T: 145 INTERPRETIVE STATEMENTS: Sinus tachycardia Left posterior fascicular block Abnormal ECG Compared to ECG 08/21/2018 04:13:40 Left posterior fascicular block now present Atrial abnormality no longer present Electronically Signed On 10-16-20 16:04:41 CDT by Primitivo Valadez
== END 2020-10-15 04:11 | disposition home or self-care (01) ==
LOC: ER 20:41
DX: E86.0 Dehydration (principal); E11.65 Type 2 diabetes mellitus with hyperglycemia; I10 Essential (primary) hypertension; W18.30XA Fall on same level, unspecified, initial encounter; Z79.4 Long term (current) use of insulin; Z20.822 Contact with and (suspected) exposure to COVID-19
CPT/HCPCS: 93005; 87040 ×2; 87070; 85025; 80048 ×2; 36415; 82010; 83735; 84703; 81025; 85610; 82947 ×3; 80076; 87081; 83605 ×2; 81003; 84484; 83690; 84145; 83880; 87804 ×2; 70450; 71045; 82805; 96375; 96374; 99284; U0003; J7030; J2405

== ENCOUNTER 2020-11-26 12:41 | Inpatient (IN) | payer BC ==
--- OUTSIDE RECORDS SUMMARY | 2020-11-26 12:45 | XMS REPORT | Continuity of Care Document ---
:1975 Author Organization [facility] t Address [address] [place] [address] Care Team Providers Name Role Phone Tanja Coronel MD Attending Clinician Michael Heck LMSW Attending Clinician OMRANIAN Attending Clinician Unavailable OMRANIAN [...] Medical 00 Center Hyperkalem Hyperkalem Disease Active 2019- [facility] Sinus Sinus Disease Active [facility] tachycardi tachycardi 5-17 Valerie kes - a a 00:00: Medical 00 [place] Sepsis Sepsis Disease Active [facility] 00:[facility]: Medical 00 [place] DKA DKA Disease Active [facility] (diabetic (diabetic 5-17 [facility] - ketoacidos ketoacidos 00:00: Me dical es) es) 00 Center Altered Altered Disease Active [facility] mental mental 5-17 [facility] - state state 00:00: Medical 00 [place] Cigarette Cigarette Disease Active [facility] 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 Social History Social Habit Start Date Stop Date Quantity Comments Source Sex Assigned At [facility] Tobacco use and 2018-08-21 2018-08-[address] [facility] exposure 00:00:00 00:00:00 [facility] Smoking Status Start Date Stop Date Source Current every day smoker 2018-08-21 00:00:00 [facility] Medications Ordered Filled Start Stop Current [...] I St hydroCHLORO 5-27 tablet by Dmitry gimenez - thiazide 14:31: mouth Medical (PRINZIDE,Z 09 daily. Center ESTORETIC) 20-12.5 mg per tablet PARoxetine Yes 40mg QD Take [address] (PAXIL) 40 5-27 by mouth [facility] - MG tablet 14:31: every Medical 09 morning. Center OXcarbazepi 2018- Yes 300mg Q.5D Take [address] ne 5-27 mg by [facility] - (TRILEPTAL) 14:31: mouth 2 Med ical 300 MG 09 (two) Center tablet times daily. ARIPiprazol Yes 5mg QD Take [address] e (ABILIFY) 5-27 by mouth [facility] - 5 MG tablet 14:31: daily. Medi mike 09 Center HYDROcodone Yes 1{tbl} Take [address] [...] Test 00:00:00 (procedure) [code = Medical Center 75308303] Future Scheduled 2019-12-07 INFLUENZA VACCINE (#1) [facility] - Test 00:00:00 [code = INFLUENZA Medical Ce nter VACCINE (#1)] Future Scheduled [address] Dmitry es - Test 00:00:00 malignant neoplasm of Medica l Center cervix (procedure) [code = 903226354] Future Scheduled [address] DIABETIC EYE EXAM [facility] - Test 00:00:00 [code = DIABETIC EYE Medical Center EXAM] Future Scheduled 1986 Urine screening for [facility] - Test 00:00:00 protein (procedure) Medical Center [code = 935673591] Future Scheduled [address] [facility] - Test 00:00:00 0-64 YRS (1 of 1 - Medical C enter PPSV23) [code = PNEUMOCOCCAL VACCINE 0-64 YRS (1 of 1 - PPSV23)] Encounters Start End Encounter Admission Attending Care Care Encounter Source Date/Time Date/Time Type Type Clinicians Facility Department ID 2020-11-06 2020-11-06 [facility] [id number] 07:53:23 16:29:19 ne Visit Sonia Easley [id number] [place] [id number] Professio [phone] nal 231 Building 2020-10-30 2020-10-30 Patient Umang [facility] [id number] 00:00:00 00:00:00 Outreach Gabriela Easley [id number] [place] [id number] Professio [phone] [facility] [address] [facility] Results Test Description Test Time Test Comments Results Result Comments Source SPUTUM CULTURE + GRAM STAIN 2018-09-02 10:25:00 Test Item Value Reference Range Interpretation Comme nts CULTURE (BEAKER) (test code = 1095) See comment GRAM STAIN RESULT (BEAKER) (test code = 1123) 1+ White blood cells seen GRAM STAIN RESULT (BEAKER) (test code = 975828) 0-5 epithelial cell s GRAM STAIN RESULT (BEAKER) (test code = 931368) No organisms seen <1+ yeastNo Normal respiratory neha presentPOCT-GLUCOSE [id number] 11:59:00 Test Item Value Reference Range Interpretation Comments POC-GLUCOSE METER 168 mg/dL 70-[address] [facility] 6720 (BEAKER) (test code = [facility] 1538) 98251 POCT-GLUCOSE [id number] 08:13:00 Test Item Value Reference Range Interpretation Comments POC-GLUCOSE METER 176 mg/dL 70-[address] [facility] 6720 (BEAKER) (test code = [facility] 1538) 58164 BASIC METABOLIC [id number] 07:35:00 Test Item Value Reference Range Interpretation [...] 0-0 (BEAKER) (test code = 413) POCT-GLUCOSE [id number] 21:38:00 Test Item Value Reference Range Interpretation Comments POC-GLUCOSE METER 218 mg/dL 70-110 H TESTED AT [facility] 6720 (BEAKER) (test code = TUNDE Dickey [facility] 1538) 73365 POCT-GLUCOSE [id number] 18:12:00 Test Item Value Reference Range Interpretation Comments POC-GLUCOSE METER 280 mg/dL 70-110 H TESTED AT [place] [address] ([facility]) (test code = TUNDE Dickey [facility] 1538) [address]44 RAD, CHEST, 2 [id number] 16:46:00Reason for exam:->Pneumonia vs. volume overload, improving.Should [...] MDReport Verified Date/Time: 08/30/2018 16:46:02 Reading Location: [facility] C013 Neuro Reading Room POCT- GLUCOSE [id number] 12:32:00 Test Item Value Reference Range Interpretation Comments POC-GLUCOSE METER 172 mg/dL 70-110 H TESTED AT [place] [address] ([facility]) (test code = TUNDE Dickey [facility] 1538) 55981 POCT-GLUCOSE [id number] 08:14:00 Test Item Value Reference Range Interpretation Comments POC-GLUCOSE METER 287 mg/dL 70-110 H TESTED AT [place] [address] ([facility]) (test code = TUNDE Dickey [facility] 1538) 47903 BLOOD [id number] 08:01:00 Test Item Value Reference Range Interpretation Comments CULTURE (BEAKER) (test No growth in 5 days code = 1095) BASIC METABOLIC [id number] 07:11:00 Test Item Value Reference Range Interpretation [...] 0-0 (BEAKER) (test code = 413) BLOOD [id number] 02:02:00 Test Item Value Reference Range Interpretation Comments CULTURE (BEAKER) (test No growth in 5 days code = 1095) POCT-GLUCOSE [id number] 22:17:00 Test Item Value Reference Range Interpretation Comments POC-GLUCOSE METER 161 mg/dL 70-[address] [facility] 6720 (BEAKER) (test code = TUNDE Dickey [facility] 1538) 71171 POCT-GLUCOSE [id number] 18:26:00 Test Item Value Reference Range Interpretation Comments POC-GLUCOSE METER 161 mg/dL 70-[address] [facility] 67[facility] (test code = TUNDE Dickey [facility] 1538) 37857 VANCOMYCIN LEVEL, [id number] 14:58:00 Test Item Value Reference Range Interpretation [...] 0-0 (BEAKER) (test code = 413) POCT-GLUCOSE [id number] 12:11:00 Test Item Value Reference Range Interpretation Comments POC-GLUCOSE METER 141 mg/dL 70-[address] [facility] 67 [facility] (test code = [facility] 1538) 23416 POCT-GLUCOSE [id number] 11:50:00 Test Item Value Reference Range Interpretation Comments POC-GLUCOSE METER 60 mg/dL 70-110 L TESTED AT [place] [address] [facility] (test code = [facility] [address] 1538) POCT-GLUCOSE [id number] 08:03:00 Test Item Value Reference Range Interpretation Comments POC-GLUCOSE METER 81 mg/dL 70-110 TESTED AT [place] [address] [facility] (test code = [facility] 32387 1538) BASIC METABOLIC [id number] 07:38:00 Test Item Value Reference Range Interpretation [...] NOT APPLICABLE FOR DIALYSIS PATIEN TS. POCT-GLUCOSE [id number] 22:05:00 Test Item Value Reference Range Interpretation Comments POC-GLUCOSE METER 216 mg/dL 70-[address] [facility] 6720 [facility] (test code = [facility] 1538) 35898 POCT-GLUCOSE [id number] 19:55:00 Test Item Value Reference Range Interpretation Comments POC-GLUCOSE METER 210 mg/dL 70-110 H TESTED AT [place] [address] ([facility]) (test code = TUNDE Dickey [facility] 1538) 09137 POCT-GLUCOSE [id number] 14:27:00 Test Item Value Reference Range Interpretation Comments POC-GLUCOSE METER 163 mg/dL 70-110 H TESTED AT [place] [address] ([facility]) (test code = TUNDE Dickey [facility] 1538) 09114 VANCOMYCIN LEVEL, [id number] 13:30:00 Test Item Value Reference Range Interpretation Comments VANCOMYCIN TROUGH ([facility]) (test 20.0 ug/mL 10.0-20.0 code = 522) Please obtain vancomycin trough 30 min prior to scheduled dose. Hold dose if level >20. Thank you!POCT-GLUCOSE [id number] 10:15:00 Test Item Value Reference Range Interpretation Comments POC-GLUCOSE METER 153 mg/dL 70-110 H TESTED AT [place] [address] ([facility]) (test code = TUNDE Dickey [facility] 1538) 47145 HIV-1 ANTIGEN WITH HIV-1/2 [id number] 06:31:00 Test Item Value Reference Range Interpretation Comments HIV-1 ANTIGEN WITH HIV 1\T\2 Nonreactive Nonreactive ANTIBODY (2) ([facility]) (test code = 2586) CT, CHEST, WITHOUT [id number] 01:38:00FINAL REPORT Chest CT without contrast CLINICAL [...] Abraham Verified Date/Time: 08/28/2018 01:38:00 Reading Location: [address] Transitional Reading Room SPUTUM CULTURE + GRAM [id number] 01:06:00 Test Item Value Reference Range Interpretation Comments CULTURE (BEAKER) Oropharyngeal (test code = 1095) contamination, specimen rejected. Recollect requested. GRAM STAIN RESULT <1+ White blood cells (BEAKER) (test code seen = 1123) GRAM STAIN RESULT 0-5 epithelial cells (BEAKER) (test code = 25359) GRAM STAIN RESULT No organisms seen (BEAKER) (test code = 34050) CT, MAXILLOFACIAL AREA, WO [id number] 01:06:00FINAL REPORT Clinical History: Fever of unknown [...] otherwise the paranasal sinuses are clear. Signed: Shaeffer, Kelly MDReport Verified Date/Time: 08/28/2018 01:06:15 Reading Location: [facility] C0Rust Transitional Reading Room POCT-GLUCOSE [id number] 21:15:00 Test Item Value Reference Range Interpretation Comments POC-GLUCOSE METER 291 mg/dL 70-110 H TESTED AT [place] [address] (BEAKER) (test code = [place] 1538) [address] POCT-GLUCOSE [id number] 18:00:00 Test Item Value Reference Range Interpretation Comments POC-GLUCOSE METER 215 mg/dL 70-110 H TESTED AT [place] [address] (BEAKER) (test code = [place] 1538) [address]651 POCT-GLUCOSE [id number] 13:36:00 Test Item Value Reference Range Interpretation Comments POC-GLUCOSE METER 237 mg/dL 70-110 H TESTED AT [place] [address] (BEAKER) (test code = [place] 1538) [address] VANCOMYCIN LEVEL, [id number] 12:42:00 Test Item Value Reference Range Interpretation Comments VANCOMYCIN TROUGH (BEAKER) (test 18.4 ug/mL 10.0-20.0 code = 522) SPUTUM CULTURE + GRAM [id number] 11:22:00 Test Item Value Reference Range Interpretation Comments CULTURE (BEAKER) <1+ Normal respiratory (test code = 1095) neha present GRAM STAIN RESULT 2+ White blood cells (BEAKER) (test code = seen 1123) GRAM STAIN RESULT 10-15 epithelial cells (BEAKER) (test code = 68252) GRAM STAIN RESULT 2+ gram positive cocci (BEAKER) (test code = in chains and pairs 35859) POCT-GLUCOSE [id number] 09:50:00 Test Item Value Reference Range Interpretation Comments POC-GLUCOSE METER 212 mg/dL 70-110 H TESTED AT [place] [address] (BEAKER) (test code = [place] 1538) [address] BASIC METABOLIC [id number] 06:45:00 Test Item Value Reference Range Interpretation [...] 0-0 (BEAKER) (test code = 413) POCT-GLUCOSE [id number] 21:37:00 Test Item Value Reference Range Interpretation Comments POC-GLUCOSE METER 130 mg/dL 70-110 H [facility] AT [place] [address] [facility] (test code = [facility] 1538) [address]165 POCT-GLUCOSE [id number] 18:27:00 Test Item Value Reference Range Interpretation Comments POC-GLUCOSE METER 257 mg/dL 70-110 H TESTED AT [place] [address] ([facility] (test code = [facility] 1538) 12028 POCT-GLUCOSE [id number] 16:45:00 Test Item Value Reference Range Interpretation Comments POC-GLUCOSE METER 167 mg/dL 70-110 H TESTED AT [place] [address] ([facility]) (test code = [facility] 1538) 69150 POCT-GLUCOSE [id number] 15:20:00 Test Item Value Reference Range Interpretation Comments POC-GLUCOSE METER 235 mg/dL 70-110 H TESTED AT [place] [address] ([facility]) (test code = [facility] 1538) 59224 POCT-GLUCOSE [id number] 14:00:00 Test Item Value Reference Range Interpretation Comments POC-GLUCOSE METER 198 mg/dL 70-110 H TESTED AT [place] [address] ([facility] (test code = [facility] 1538) [address] BASIC METABOLIC [id number] 13:37:00 Test Item Value Reference Range Interpretation [...] NOT APPLICABLE FOR DIALYSIS PATIEN TS. BLOOD [id number] 12:01:00 Test Item Value Reference Range Interpretation Comments CULTURE (BEAKER) (test No growth in 5 days code = 1095) BLOOD [id number] 12:01:00 Test Item Value Reference Range Interpretation Comments CULTURE (BEAKER) (test No growth in 5 days code = 1095) VANCOMYCIN LEVEL, [id number] 11:39:00 Test Item Value Reference Range Interpretation Comments VANCOMYCIN TROUGH (BEAKER) (test 6.5 ug/mL 10.0-20.0 L code = 522) CBC W/PLT COUNT & AUTO [id number] 11:01:00 Test Item Value Reference Range Interpretation [...] PERCENT (BEAKER) (test code = 2801) POCT-GLUCOSE [id number] 07:59:00 Test Item Value Reference Range Interpretation Comments POC-GLUCOSE METER 51 mg/dL 70-110 L TESTED AT [place] [address] ([facility]) (test code = [facility] [address] 1538) POCT-GLUCOSE [id number] 21:45:00 Test Item Value Reference Range Interpretation Comments POC-GLUCOSE METER 170 mg/dL 70-110 H TESTED AT [place] [address] ([facility]) (test code = [facility] 1538) 73465 POCT-GLUCOSE [id number] 17:32:00 Test Item Value Reference Range Interpretation Comments POC-GLUCOSE METER 154 mg/dL 70-110 H TESTED AT [place] [address] ([facility]) (test code = [facility] 1538) 29127 POCT-GLUCOSE [id number] 13:45:00 Test Item Value Reference Range Interpretation Comments POC-GLUCOSE METER 79 mg/dL 70-110 TESTED AT [place] [address] ([facility]) (test code = [facility] 36232 1538) POCT-GLUCOSE [id number] 13:28:00 Test Item Value Reference Range Interpretation Comments POC-GLUCOSE METER 57 mg/dL 70-110 L Notified R Gris FUENTES/TESTED AT ([facility]) (test code = [place] [address] MARGY 1538) [place] [address] POCT-GLUCOSE [id number] 08:53:00 Test Item Value Reference Range Interpretation Comments POC-GLUCOSE METER 148 mg/dL 70-[address] [facility] 6720 (BEAKER) (test code = TUNDE Dickey [facility] 1538) 94136 [id number] 08:08:00 Test Item Value Reference Range Interpretation Comments MAGNESIUM (BEAKER) (test code = 1.4 mg/dL 1.6-2.6 L 627) BASIC METABOLIC [id number] 08:08:00 Test Item Value Reference Range Interpretation [...] code = 413) URINALYSIS W/ REFLEX URINE [id number] 06:01:00 Test Item Value Reference Range Interpretation [...] = 516) YEAST (BEAKER) (test code = 1345) Many SOURCE(BEAKER) (test code = 8044) RAD, CHEST, 1 VIEW, NON [id number] 23:05:00Reason for exam:->chest painShould this be performed [...] The bony thorax is unremarkable. Signed: Richard Hsuort Verified Date/Time: 08/24/2018 23:05:27 Reading Location: [place] [id number] [place] Body Reading Room TROPONIN [id number] 22:50:00 Test Item Value Reference Range Interpretation Comments TROPONIN I (YOHANA) (test code = 397) < ng/mL 0.00-0.03 [...] acidosis, acute neurological disease, and persistent tachyarrhythmia.POCT-GLUCOSE [id number] 20:56:00 Test Item Value Reference Range Interpretation Comments POC-GLUCOSE METER 128 mg/dL 70-[address] [facility] 6720 ([facility]) (test code = [facility] 1538) 79942 POCT-GLUCOSE [id number] 18:30:00 Test Item Value Reference Range Interpretation Comments POC-GLUCOSE METER 109 mg/dL 70-[address] [facility] 6720 (YOHANA) (test code = [facility] 1538) 90588 POCT-GLUCOSE [id number] 12:21:00 Test Item Value Reference Range Interpretation Comments POC-GLUCOSE METER 184 mg/dL 70-[address] [facility] 6720 (BEAKER) (test code = [place] 1538) [address] POCT-GLUCOSE [id number] 09:03:00 Test Item Value Reference Range Interpretation Comments POC-GLUCOSE METER 218 mg/dL 70-[address] [facility] 6720 (BEAKER) (test code = [place] 1538) [address] CBC W/PLT COUNT & AUTO [id number] 02:49:00 Test Item Value Reference Range Interpretation [...] (BEAKER) (test code = 2801) LACTIC ACID, [id number] 02:47:00 Test Item Value Reference Range Interpretation Comments LACTATE BLOOD VENOUS (2) (BEAKER) 0.8 mmol/L 0.5-2.2 (test code = 2872) TROPONIN [id number] 02:36:00 Test Item Value Reference Range Interpretation [...] failure, acidosis, acute neurological disease, and persistent tachyarrhythmia.[id number] 02:32:00 Test Item Value Reference Range Interpretation Comments MAGNESIUM (BEAKER) (test code = 1.6 mg/dL 1.6-2.6 627) BASIC METABOLIC [id number] 02:32:00 Test Item Value Reference Range Interpretation [...] 358) GLUCOSE RANDOM 151 mg/dL 70-105 H ([facility]) (test code = 652) CALCIUM ([facility]) 8.2 mg/dL 8.4-10.2 L (test code = 697) EGFR ([facility]) (test 106 mL/min/1.73 ESTIM ATED GFR IS code = 1092) sq m NOT ACCURATE CREATININE CLEARANCE IN PREDICTING GLOMERULAR FILTRATION RATE . ESTIMATED GFR I S NOT APPLICABLE FOR DIALYSIS PATIEN TS. OSMOLALITY, [id number] 00:11:00 Test Item Value Reference Range Interpretation Comments OSMOLALITY URINE 660 mOsm/kg 40-1,400 Test perfor med at ([facility]) (test code = [facility] center 614) POCT-GLUCOSE [id number] 21:07:00 Test Item Value Reference Range Interpretation Comments POC-GLUCOSE METER 187 mg/dL 70-110 H TESTED AT [place] [address] ([facility]) (test code = TUNDE Dickey [facility] 1538) [address]91 POCT-GLUCOSE [id number] 17:26:00 Test Item Value Reference Range Interpretation Comments POC-GLUCOSE METER 145 mg/dL 70-110 H TESTED AT [place] [address] ([facility]) ([facility] = [facility] 1538) [address] POCT-GLUCOSE [id number] 15:03:00 Test Item Value Reference Range Interpretation Comments POC-GLUCOSE METER 107 mg/dL 70-110 TESTED AT [place] [address] ([facility]) (test code = TUNDE Dickey [facility] 1538) [address]90 POCT-GLUCOSE [id number] 12:27:00 Test Item Value Reference Range Interpretation Comments POC-GLUCOSE METER 118 mg/dL 70-[address] [facility] 6720 ([facility]) (test code = BARRIEGALLITO Dickey [facility] 1538) [address]01 POCT-GLUCOSE [id number] 08:16:00 Test Item Value Reference Range Interpretation Comments POC-GLUCOSE METER 121 mg/dL 70-110 H TESTED AT [place] [address] ([facility]) (test code = BARRIEGALLITO Dickey [facility] 1538) [address]2013 POCT-GLUCOSE [id number] 07:54:00 Test Item Value Reference Range Interpretation Comments POC-GLUCOSE METER 115 mg/dL 70-110 H TESTED AT [facility] 6720 (BEAKER) (test code = [place] 1538) [address] [id number] 06:43:00 Test Item Value Reference Range Interpretation Comments PROCALCITONIN (BEAKER) (test code 7.46 ng/mL <0.05 H = 3036) SEPSIS RISK (ng/mL)Low: 0.05-0.50Intermediate: 0.51-2.00High: >=[id number] 05:35:00 Test Item Value Reference Range Interpretation Comments PHOSPHORUS (BEAKER) (test code = 2.3 mg/dL 2.3-4.7 604) [id number] 05:35:00 Test Item Value Reference Range Interpretation Comments MAGNESIUM (BEAKER) (test code = 1.8 mg/dL 1.6-2.6 627) BASIC METABOLIC [id number] 05:35:00 Test Item Value Reference Range Interpretation [...] APPLICABLE FOR DIALYSIS PATIEN TS. LACTIC ACID, [id number] 05:30:00 Test Item Value Reference Range Interpretation Comments LACTATE BLOOD VENOUS (2) (BEAKER) 0.7 mmol/L 0.5-2.2 (test code = 2872) CBC W/PLT COUNT & AUTO [id number] 05:21:00 Test Item Value Reference Range Interpretation [...] PERCENT (BEAKER) (test code = 2801) HEMOGLOBIN [id number] 01:14:00 Test Item Value Reference Range Interpretation Comments HEMOGLOBIN A1C (BEAKER) (test code = > % 4.3-6.1 H 368) POCT-GLUCOSE [id number] 22:04:00 Test Item Value Reference Range Interpretation Comments POC-GLUCOSE METER 133 mg/dL 70-[address] [facility] 6720 (BEAKER) (test code = [place] 1538) [address] [id number] 21:18:00 Test Item Value Reference Range Interpretation Comments MAGNESIUM (BEAKER) (test code = 1.8 mg/dL 1.6-2.6 627) BASIC METABOLIC [id number] 21:16:00 Test Item Value Reference Range Interpretation [...] S NOT APPLICABLE FOR DIALYSIS PATIEN TS. [id number] 21:02:00 Test Item Value Reference Range Interpretation Comments PHOSPHORUS (BEAKER) (test code = 2.7 mg/dL 2.3-4.7 604) POCT-GLUCOSE [id number] 18:03:00 Test Item Value Reference Range Interpretation Comments POC-GLUCOSE METER 157 mg/dL 70-[address] [facility] 6720 (BEAKER) (test code = [facility] 1538) 14191 POCT-GLUCOSE [id number] 16:40:00 Test Item Value Reference Range Interpretation Comments POC-GLUCOSE METER 176 mg/dL 70-[address] [facility] 67 (BEAKER) (test code = [facility] 1538) 55348 [id number] 16:17:00 Test Item Value Reference Range Interpretation Comments PHOSPHORUS (BEAKER) (test code = 2.3 mg/dL 2.3-4.7 604) [id number] 16:17:00 Test Item Value Reference Range Interpretation Comments MAGNESIUM (BEAKER) (test code = 1.8 mg/dL 1.6-2.6 627) BASIC METABOLIC [id number] 16:17:00 Test Item Value Reference Range Interpretation [...] NOT APPLICABLE FOR DIALYSIS PATIEN TS. POCT-GLUCOSE [id number] 15:58:00 Test Item Value Reference Range Interpretation Comments POC-GLUCOSE METER 176 mg/dL 70-[address] [facility] (test code = [facility] 1538) [id number] POCT-GLUCOSE [id number] 14:22:00 Test Item Value Reference Range Interpretation Comments POC-GLUCOSE METER 187 mg/dL 70-[address] [facility] 6720 (BEAKER) (test code = [facility] [place] 1538) [address] BASIC METABOLIC [id number] 14:04:00 Test Item Value Reference Range Interpretation [...] S NOT APPLICABLE FOR DIALYSIS PATIEN TS. [id number] 14:01:00 Test Item Value Reference Range Interpretation Comments PHOSPHORUS (BEAKER) (test code = 2.7 mg/dL 2.3-4.7 604) [id number] 14:01:00 Test Item Value Reference Range Interpretation Comments MAGNESIUM (BEAKER) (test code = 1.8 mg/dL 1.6-2.6 627) POCT-GLUCOSE [id number] 13:14:00 Test Item Value Reference Range Interpretation Comments POC-GLUCOSE METER 193 mg/dL 70-[address] [facility] 6720 (BEAKER) (test code = [facility] [place] 1538) [address] POCT-GLUCOSE [id number] 12:32:00 Test Item Value Reference Range Interpretation Comments POC-GLUCOSE METER 210 mg/dL 70-[address] [facility] 6720 (BEAKER) (test code = [facility] [place] 1538) [address] [id number] 12:12:00 Test Item Value Reference Range Interpretation Comments FERRITIN (BEAKER) (test code = 361) 20 ng/mL 5-275 POCT-GLUCOSE [id number] 11:20:00 Test Item Value Reference Range Interpretation Comments POC-GLUCOSE METER 216 mg/dL 70-[address] [facility] 6720 (BEAKER) (test code = [facility] 1538) [address] POCT-GLUCOSE [id number] 11:19:00 Test Item Value Reference Range Interpretation Comments POC-GLUCOSE METER 218 mg/dL 70-[address] [facility] 6720 (BEAKER) (test code = [facility] 1538) [address] BASIC METABOLIC [id number] 09:50:00 Test Item Value Reference Range Interpretation [...] S NOT APPLICABLE FOR DIALYSIS PATIEN TS. [id number] 09:39:00 Test Item Value Reference Range Interpretation Comments PHOSPHORUS (BEAKER) (test code = 2.2 mg/dL 2.3-4.7 L 604) [id number] 09:39:00 Test Item Value Reference Range Interpretation Comments MAGNESIUM (BEAKER) (test code = 2.3 mg/dL 1.6-2.6 627) POCT-GLUCOSE [id number] 09:22:00 Test Item Value Reference Range Interpretation Comments POC-GLUCOSE METER 238 mg/dL 70-110 H TESTED AT [place] [address] ([facility]) (test code = TUNDE Dickey [facility] 1538) [address] POCT-GLUCOSE [id number] 08:33:00 Test Item Value Reference Range Interpretation Comments POC-GLUCOSE METER 234 mg/dL 70-110 H TESTED AT [place] [address] ([facility]) (test code = TUNDE Dickey [facility] 1538) [address] POCT-GLUCOSE [id number] 07:09:00 Test Item Value Reference Range Interpretation Comments POC-GLUCOSE METER 236 mg/dL 70-110 H TESTED AT [place] [address] ([facility]) (test code = [facility] 1538) [address] [id number] 06:34:00 Test Item Value Reference Range Interpretation Comments PROCALCITONIN ([facility]) (test code 17.26 ng/mL <0.05 = 3036) SEPSIS RISK (ng/mL)Low: 0.05-0.50Intermediate: 0.51-2.00High: >=2.01POCT-GLUCOSE [id number] 06:22:00 Test Item Value Reference Range Interpretation Comments POC-GLUCOSE METER 199 mg/dL 70-110 H TESTED AT [place] [address] ([facility]) ([facility] 1538) [address] POCT-GLUCOSE [id number] 06:22:00 Test Item Value Reference Range Interpretation Comments POC-GLUCOSE METER 183 mg/dL 70-110 H TESTED AT [place] [address] ([facility]) (test code = [facility] 1538) [address] BASIC METABOLIC [id number] 04:56:00 Test Item Value Reference Range Interpretation [...] PATIEN TS. CBC W/PLT COUNT & AUTO [id number] 04:52:00 Test Item Value Reference Range Interpretation [...] 0-1 PERCENT (BEAKER) (test code = 2801) [id number] 04:45:00 Test Item Value Reference Range Interpretation Comments PHOSPHORUS (BEAKER) (test code = 1.9 mg/dL 2.3-4.7 L 604) [id number] 04:45:00 Test Item Value Reference Range Interpretation [...] L (test code = 2590) BLOOD GAS, [id number] 04:40:00 Test Item Value Reference Range Interpretation [...] code = 1819) 21.0 % LACTIC ACID, [id number] 04:32:00 Test Item Value Reference Range Interpretation Comments LACTATE BLOOD VENOUS (2) (BEAKER) 0.7 mmol/L 0.5-2.2 (test code = 2872) POCT-GLUCOSE [id number] 04:09:00 Test Item Value Reference Range Interpretation Comments POC-GLUCOSE METER 143 mg/dL 70-110 H TESTED AT [place] [address] (BEAKER) (test code = [facility] 1538) [address] POCT-GLUCOSE [id number] 03:19:00 Test Item Value Reference Range Interpretation Comments POC-GLUCOSE METER 140 mg/dL 70-110 H [facility] [place] [address] [facility] (test code = [facility] 1538) [address] POCT-GLUCOSE [id number] 02:25:00 Test Item Value Reference Range Interpretation Comments POC-GLUCOSE METER 150 mg/dL 70-110 H TEST[facility] AT [place] [address] ([facility] (test code = [facility] 1538) [address] BASIC METABOLIC [id number] 01:22:00 Test Item Value Reference Range Interpretation [...] NOT APPLICABLE FOR DIALYSIS PATIEN TS. TROPONIN [id number] 01:16:00 Test Item Value Reference Range Interpretation [...] acidosis, acute neurological disease, and persistent tachyarrhythmia.POCT-GLUCOSE [id number] 01:15:00 Test Item Value Reference Range Interpretation Comments POC-GLUCOSE METER 155 mg/dL 70-110 H TESTED AT [place] [address] ([facility]) (test code = [facility] [employer] [facility] 1538) [address] [id number] 01:08:00 Test Item Value Reference Range Interpretation Comments PHOSPHORUS (BEAKER) (test code = 2.1 mg/dL 2.3-4.7 L 604) [id number] 01:08:00 Test Item Value Reference Range Interpretation Comments MAGNESIUM (BEAKER) (test code = 1.7 mg/dL 1.6-2.6 627) POCT-GLUCOSE [id number] 00:29:00 Test Item Value Reference Range Interpretation Comments POC-GLUCOSE METER 161 mg/dL 70-110 H TESTED AT [place] [address] ([facility]) (test code = [facility] [place] 1538) [address] POCT-GLUCOSE [id number] 23:10:00 Test Item Value Reference Range Interpretation Comments POC-GLUCOSE METER 172 mg/dL 70-110 H TESTED AT [place] [address] ([facility]) (test code = [facility] [employer] [place] 1538) [address] POCT-GLUCOSE [id number] 22:46:00 Test Item Value Reference Range Interpretation Comments POC-GLUCOSE METER 206 mg/dL 70-110 H TESTED AT [place] [address] ([facility]) (test code = [facility] [employer] [place] 1538) [address] STREP PNEUMONIAE [id number] 21:51:00 Test Item Value Reference Range Interpretation Comments STREP PNEUMONIAE Presumptive negative Presumptive negative ANTIGEN (BEAKER) for pneumococcal for pneumococcal (test code = 1615) pneumonia - see pneumonia - see comment commen Presumptive negative for pneumococcal pneumonia, suggesting no current or recent pneumococcal infection. Infection due to S. pneumoniae cannot be ruled out since the antigen present in the sample may be below the detection limit of the test. LEGIONELLA ANTIGEN, [id number] 21:50:00 Test Item Value Reference Range Interpretation Comments L. PNEUMOPHILA Negative - see Negative fo r L. SEROGP 1 UR AG comment pneumophila (BEAKER) (test code serogrou p 1 antigen, = 1156) suggesting no r ecent or current infe ction with this serog roup. Legionellosis c annot be ruled out si nce other serogroup s and species may cau se disease. LACTIC ACID, [id number] 21:31:00 Test Item Value Reference Range Interpretation Comments LACTATE BLOOD VENOUS (2) (BEAKER) 1.1 mmol/L 0.5-2.2 (test code = 6062) BASIC METABOLIC [id number] 21:28:00 Test Item Value Reference Range Interpretation [...] S NOT APPLICABLE FOR DIALYSIS PATIEN TS. [id number] 21:27:00 Test Item Value Reference Range Interpretation Comments PHOSPHORUS (BEAKER) (test code = 2.1 mg/dL 2.3-4.7 L 604) [id number] 21:27:00 Test Item Value Reference Range Interpretation Comments MAGNESIUM (BEAKER) (test code = 2.0 mg/dL 1.6-2.6 627) POCT-GLUCOSE [id number] 20:35:00 Test Item Value Reference Range Interpretation Comments POC-GLUCOSE METER 218 mg/dL 70-[address] [facility] 6720 (BEAKER) (test code = [place] 1538) [address] CREATININE, RANDOM [id number] 19:51:00 Test Item Value Reference Range Interpretation Comments CREATININE URINE (BEAKER) (test 25.6 mg/dL code = 375) Reference Range: No NormalsPROTEIN, RANDOM [id number] 19:51:00 Test Item Value Reference Range Interpretation Comments PROTEIN, URINE (BEAKER) (test code = 10 mg/dL 0-14 1569) SODIUM, RANDOM [id number] 19:51:00 Test Item Value Reference Range Interpretation Comments SODIUM URINE (BEAKER) (test code = 145 meq/L 243) Reference Range: No NormalsU/S, ABDOMINAL, [id number] 19:48:00Reason for exam:->nausea,vomitting,AKIShould this be performed at [...] MDReport Verified Date/Time: 08/21/2018 19:48:18 Reading Location: [facility] [id number] Consult Reading Room Electronically signed by: MYNOR FOSTER M.D. on 0 08/21/2018 07:48 PMLIPID [id number] 19:36:00 Test Item Value Reference Range Interpretation Comments TRIGLYCERIDES ([facility]) (test code = 189 mg/dL 540) CHOLESTEROL ([facility]) (test code = 148 mg/dL 631) HDL CHOLESTEROL ([facility]) (test code 30 mg/dL = 976) LDL CHOLESTEROL CALCULATED ([facility]) 80 mg/dL (test code = 633) Triglyceride Reference Range: Low Risk <150 Borderline 150-199 High Risk 200-499 Very High Risk >=500Cholesterol Reference Range: Low Risk <200 Borderline 200-239 High Risk >240HDL Cholesterol Reference Range: Low Risk >=60 High Risk <40LDL Cholesterol Reference Range: Optimal <100 Near Optimal 100-129 Borderline 130-159 High 160-189 Very High >=190LACTIC ACID, [id number] 19:33:00 Test Item Value Reference Range Interpretation Comments LACTATE BLOOD VENOUS (2) ([facility]) 1.1 mmol/L 0.5-2.2 (test code = 2872) POCT-GLUCOSE [id number] 19:13:00 Test Item Value Reference Range Interpretation Comments POC-GLUCOSE METER 257 mg/dL 70-110 H TESTED AT [place] [address] ([facility]) (test code = [facility] 1538) [address] POCT-GLUCOSE [id number] 18:23:00 Test Item Value Reference Range Interpretation Comments POC-GLUCOSE METER 308 mg/dL 70-110 H TESTED AT [place] [address] ([facility]) (test code = [facility] 1538) [address] POCT-GLUCOSE [id number] 17:27:00 Test Item Value Reference Range Interpretation Comments POC-GLUCOSE METER 324 mg/dL 70-110 H TESTED AT [place] [address] ([facility]) (test code = [facility] 1538) [address] [id number] 17:26:00 Test Item Value Reference Range Interpretation Comments PROCALCITONIN ([facility]) (test code 21.30 ng/mL <0.05 = 3036) SEPSIS RISK (ng/mL)Low: 0.05-0.50Intermediate: 0.51-2.00High: >=2.01TROPONIN [id number] 16:41:00 Test Item Value Reference Range Interpretation [...] acute neurological disease, and persistent tachyarrhythmia.BASIC METABOLIC [id number] 16:39:00 Test Item Value Reference Range Interpretation [...] APPLICABLE FOR DIALYSIS PATIEN TS. BLOOD GAS, [id number] 16:33:00 Test Item Value Reference Range Interpretation [...] (BEAKER) (test code = 1819) 21.0 % [id number] 16:32:00 Test Item Value Reference Range Interpretation Comments PHOSPHORUS (BEAKER) (test code = 3.0 mg/dL 2.3-4.7 604) [id number] 16:32:00 Test Item Value Reference Range Interpretation Comments MAGNESIUM (BEAKER) (test code = 1.9 mg/dL 1.6-2.6 627) LACTIC ACID, [id number] 16:30:00 Test Item Value Reference Range Interpretation Comments LACTATE BLOOD VENOUS (2) (BEAKER) 1.1 mmol/L 0.5-2.2 (test code = 2872) POCT-GLUCOSE [id number] 16:07:00 Test Item Value Reference Range Interpretation Comments POC-GLUCOSE METER 292 mg/dL 70-110 H TESTED AT [place] [address] ([facility]) (test code = [place] 1538) [address] RAD, ABDOMEN/KUB, 1 VIEW [id number] 15:53:00Reason for exam:- >nausea,vomittingShould this be performed at the bedside?->YesFINAL REPORT Abdomen one view Comparison: None. Reason for exam: nausea,vomitting Findings: Bowel gas pattern is nonspecific, nonobstructive. No free air is identified. The visualized osseous structures are unremarkable. Signed: Kandy Black Verified Date/Time: 08/21/201815:53:49 Reading Location: [facility] C013W Consult Reading Room POCT-GLUCOSE [id number] 15:02:00 Test Item Value Reference Range Interpretation Comments POC-GLUCOSE METER 284 mg/dL 70-110 H TESTED AT [place] [address] (BEAKER) (test code = [place] 1538) [address] RESPIRATORY PANEL [id number] 14:27:00 Test Item Value Reference Range Interpretation [...] decisions. This sample was tested at the [facility] using the [employer] FilmArray Respiratory Panel. It is FDA cleared and has been verified and approved by the [facility] for clinical use on nasopharyngeal swab specimens.The performance of the FilmArrayRP has not been established in individuals who received influenza vaccine. Recent administration ofa nasal influenza vaccine may cause false positive results for Influenza A and/orInfluenza B.POCT-GLUCOSE [id number] 14:07:00 Test Item Value Reference Range Interpretation Comments POC-GLUCOSE METER 286 mg/dL 70-110 H TESTED AT [place] [address] ([facility]) (test code = [facility] 1538) 265[address] POCT-GLUCOSE [id number] 13:21:00 Test Item Value Reference Range Interpretation Comments POC-GLUCOSE METER 275 mg/dL 70-110 H TESTED AT [place] [address] ([facility]) (test code = [facility] 1538) [address] BLOOD GAS, [id number] 13:10:00 Test Item Value Reference Range Interpretation [...] code = 1819) 21.0 % BASIC METABOLIC [id number] 12:58:00 Test Item Value Reference Range Interpretation [...] S NOT APPLICABLE FOR DIALYSIS PATIEN TS. [id number] 12:55:00 Test Item Value Reference Range Interpretation Comments PHOSPHORUS (BEAKER) (test code = 1.9 mg/dL 2.3-4.7 L 604) LACTIC ACID, [id number] 12:54:00 Test Item Value Reference Range Interpretation Comments LACTATE BLOOD VENOUS (2) (BEAKER) 2.0 mmol/L 0.5-2.2 (test code = 2872) POCT-GLUCOSE [id number] 12:25:00 Test Item Value Reference Range Interpretation Comments POC-GLUCOSE METER 337 mg/dL 70-[address] [facility] 6720 (BEAKER) (test code = TUNDE Dickey [facility] 1538) [address] POCT-GLUCOSE [id number] 11:20:00 Test Item Value Reference Range Interpretation Comments POC-GLUCOSE METER 282 mg/dL 70-[address] [facility] 6720 (BEAKER) (test code = [facility] Dickey [facility] 1538) [address] URINALYSIS W/ REFLEX URINE [id number] 11:16:00 Test Item Value Reference Range Interpretation [...] Rare SOURCE(BEAKER) (test code = 2795) SCREEN, [id number] 11:16:00 Test Item Value Reference Range Interpretation Comments TEST URINE (BEAKER) (test Negative code = 583) COMPREHENSIVE METABOLIC [id number] 11:15:00 Test Item Value Reference Range Interpretation [...] NOT APPLICABLE FOR DIALYSIS PATIEN TS. KETONE, [id number] 11:15:00 Test Item Value Reference Range Interpretation Comments KETONES, BLOOD (BEAKER) (test code 4.9 mmol/L <0.4 H = 1103) TSH/FREE T4 IF [id number] 11:10:00 Test Item Value Reference Range Interpretation Comments THYROID STIMULATING HORMONE 0.85 uIU/mL 0.35-4.94 (BEAKER) (test code = 772) TROPONIN [id number] 10:56:00 Test Item Value Reference Range Interpretation [...] failure, acidosis, acute neurological disease, and persistent tachyarrhythmia.[id number] 10:53:00 Test Item Value Reference Range Interpretation Comments PHOSPHORUS (BEAKER) (test code = 2.9 mg/dL 2.3-4.7 604) [id number] 10:53:00 Test Item Value Reference Range Interpretation Comments MAGNESIUM (BEAKER) (test code = 1.5 mg/dL 1.6-2.6 L 627) [id number] 10:53:00 Test Item Value Reference Range Interpretation Comments AMYLASE (BEAKER) (test code = 349) 16 U/L 25-125 L [id number] 10:53:00 Test Item Value Reference Range Interpretation Comments LIPASE (BEAKER) (test code = 749) 40 U/L 8-78 PROTHROMBIN [id number] 10:49:00 Test Item Value Reference Range Interpretation Comments PROTIME (BEAKER) (test code = 14.9 seconds 11.7-14.7 H 759) INR (BEAKER) (test code = 370) 1.2 <=5.9 RECOMMENDED COUMADIN/WARFARIN INR THERAPY RANGESSTANDARD DOSE: 2.0 - 3.0 Includes: PROPHYLAXIS forvenous thrombosis, systemic embolization; TREATMENT for venous thrombosis and/or pulmonary embolus.HIGH RISK: Target INR is 2.5-3.5 for patients with mechanical heart valves.LACTIC ACID, [id number] 10:47:00 Test Item Value Reference Range Interpretation Comments LACTATE BLOOD VENOUS (2) (BEAKER) 3.0 mmol/L 0.5-2.2 H (test code = 2872) POCT-GLUCOSE [id number] 10:45:00 Test Item Value Reference Range Interpretation Comments POC-GLUCOSE METER 355 mg/dL 70-110 H Notified R Gris FUENTES/TESTED (BEAKER) (test code = AT [facility] 67[address] [employer] [facility] 1538) [facility] 7703 0 CBC W/PLT COUNT & AUTO [id number] 10:36:00 Test Item Value Reference Range Interpretation [...] (test code = 2801) RAPID INFLUENZA A&B [id number] 10:29:00 Test Item Value Reference Range Interpretation Comments RAPID INFLUENZA A AG (BEAKER) Negative Negative, Inconclusive (test code = 1622) RAPID INFLUENZA B AG (BEAKER) Negative Negative, Inconclusive (test code = 1623) RAD, CHEST, 1 VIEW, NON [id number] 10:24:00?pnaReason for exam:->chest pain,sobShould this be performed at the bedside?->YesFINAL REPORT Chest one view. Clinical history: chest pain,sob Comparison: No priors Discussion: A frontal chest is provided. Cardiomediastinal contours are unremarkable, allowing for portable technique. There is no evidence of vascular congestion, consolidation, pneumothorax orsignificant effusion. No acute bony abnormality. Signed: Kandy [place] Verified Date/Time: 08/21/2018 10:24:52 Reading Location: [facility] Radiology Reading Room BLOOD GAS, [id number] 10:17:00 Test Item Value Reference Range Interpretation [...] (test code = 1819) 21.0 % POCT-GLUCOSE [id number] 09:47:00 Test Item Value Reference Range Interpretation Comments POC-GLUCOSE METER 430 mg/dL 70-110 Notified R Gris FUENTES/TESTED (BEAKER) (test code = AT [facility] [address] [facility] 6135) [facility] [address] 0
[2020-11-26 15:02] LABS: Urine Blood Negative (Negative); Urine Glucose 2+ (Negative); Urine Protein 1+ (Negative); Urine Specific Gravity >=1.030 (1.005-1.030); Urine pH 5.5 (5.0-7.0)
[2020-11-26 15:19] LABS: Absolute Lymphocytes (CBC) 2.2 K/uL (0.7-4.9); Basophils % 0.7 % (0-1.3); Hematocrit 40.4 % (36.0-45.0); Lymphocytes % 36.8 % (15.3-44.8); MPV 9.1 fL (7.6-11.3); RBC Red Blood Cell Count 4.46 M/uL (3.86-4.86)
[2020-11-26 15:28] LABS: Albumin 4.2 g/dL (3.4-5.0); Bilirubin Direct 0.2 mg/dL (0-0.2); Bilirubin Total 0.6 mg/dL (0.2-1.0); Potassium 4.3 mmol/L (3.5-5.1); Protein, Total 8.1 g/dL (6.4-8.2)
[2020-11-26 15:28] LABS: Barbiturates NEGATIVE (NEGATIVE); Benzodiazepines NEGATIVE (NEGATIVE); Cocaine NEGATIVE (NEGATIVE); METHAMPHETAM NEGATIVE (NEGATIVE); Methadone NEGATIVE (NEGATIVE); Opiates POSITIVE (NEGATIVE); Phencyclidine NEGATIVE (NEGATIVE); THC Cannibis POSITIVE (NEGATIVE)
[2020-11-26 16:17] LABS: Blood Gas Oxyhemoglobin 91.5 % (94-97); Blood O2 Saturation 94.1 % (92-98.5)
--- NOTE | 2020-11-26 16:38 | EDPHYS ---
Physician Documentation [facility] Name: Michael Horne Age: 45 yrs Sex: Female : 1975 Arrival Date: 11/26/2020 Time: 12:48 Bed 3 Private MD: JOE Physician Maximiliano Cohen HPI: 11/26 15:22 This 45 yrs old Female presents to ER via EMS with complaints of DKA. jmm 15:22 The patient or guardian reports hyperglycemia. Onset: The symptoms/episode jmm began/occurred gradually, today. Is a 45-year-old female with a history of insulin-dependent diabetes mellitus, hypertension, anxiety, depression the presents emerged part with complaints of nausea, vomiting, shortness of breath. Patient states symptoms are similar to previous episodes of diabetic ketoacidosis. Patient states she is immunized for coronavirus.. 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: 14:12 LMP N/A - Depo-provera kg Historical: - Allergies: 14:12 No Known Allergies; kg - Home Meds: 14:12 lisinopril Oral [Active]; Lantus Sub-Q [Active]; Hydrocodone-Acetaminophen Oral kg [Active]; gabapentin Oral [Active]; apidra [Active]; Abilify Oral [Active]; 3 types of anti depressant cannot recall the name [Active]; Humalog U-100 Insulin 100 unit/mL Sub-Q crtg [Active]; - PMHx: 14:12 Anxiety; Depression; Diabetes - IDDM; Hypertension; nerve pain; kg - PSHx: 14:12 None; kg - Immunization history:: Adult Immunizations not up to date, Client reports receiving the 2nd dose of the Covid vaccine, Date received: September 25, 2020 [employer] Client reports receiving the 1st dose of the Covid vaccine, August 31, 2020 [employer]. - Social history:: Smoking status: Patient reports the use of cigarette tobacco products, smokes one-half pack cigarettes per day, Patient uses alcohol, occasionally. ROS: 15:22 Constitutional: Positive for body aches, fatigue. jmm 15:22 Respiratory: Positive for shortness of breath. 15:22 Abdomen/GI: Positive for nausea and vomiting. 15:22 All other systems are negative. Exam: 15:22 Constitutional: This is a well developed, well nourished patient who is awake, alert, jmm and in no acute distress. Head/Face: atraumatic. Eyes: EOMI, no conjunctival erythema appreciated ENT: Moist Mucus Membranes Neck: Trachea midline, Supple Chest/axilla: Normal chest wall appearance and motion. Cardiovascular: Regular rate and rhythm. No edema appreciated Respiratory: Normal respirations, no respiratory distress appreciated Abdomen/GI: Non distended, soft Back: Normal ROM Skin: General appearance color normal MS/ Extremity: Moves all extremities, no obvious deformities appreciated, no edema noted to the lower extremities Neuro: Awake and alert, normal gait Psych: Behavior is normal, Mood is normal, Patient is cooperative and pleasant Vital Signs: 14:08 BP 108 / 83; Resp 20; Temp 98.1(TE); Pulse Ox 98% on R/A; Weight 54.43 kg (R); Height 5 kg ft. 8 in. (172.72 cm); Pain 5/10; 15:44 BP 136 / 68; Pulse 105; Resp 19; Pulse Ox 98% ; Pain 5/10; jl7 18:26 BP 130 / 87; Pulse 105; Resp 20; Pulse Ox 100% ; jl7 14:08 Body Mass Index 18.25 (54.43 kg, 172.72 cm) kg MDM: 15:18 Patient medically screened. dorita 16:35 Data reviewed: vital signs, nurses notes. Counseling: I had a detailed discussion with john the patient and/or guardian regarding: the historical points, exam findings, and any diagnostic results supporting the discharge/admit diagnosis, lab results, the need for further work-up and treatment in the hospital. ED course: I discussed the patient with Ms. Katherine PA-C whom accepted the patient to Dr. Cotton service. 11/26 14:18 Order name: Basic Metabolic Panel kg 11/26 14:18 Order name: CBC with Diff; Complete Time: 15:32 kg 11/26 14:18 Order name: Hepatic Function; Complete Time: 15:32 kg 11/26 14:18 Order name: Lipase; Complete Time: 15:32 kg 11/26 14:18 Order name: UDS; Complete Time: 15:32 kg 11/26 14:18 Order name: Basic Metabolic Panel; Complete Time: 15:32 EDMS 11/26 14:31 Order name: Glucose, Ancillary Testing; Complete Time: 15:19 EDMS 08/22 15:02 Order name: Urine Dipstick-Ancillary; Complete Time: 15:19 EDMS 11/26 15:04 Order name: Urine --Ancillary (enter results); Complete Time: 16:10 eb 11/26 15:19 Order name: ABG; Complete Time: 17:19 jmm 11/26 16:57 Order name: SARS-COV-2 RT PCR; Complete Time: 17:19 EDMS 11/26 17:46 Order name: Basic Metabolic Panel EDMS 11/26 17:46 Order name: Basic Metabolic Panel; Complete Time: 21:18 EDMS 11/26 17:46 Order name: Basic Metabolic Panel; Complete Time: 01:10 EDMS 11/26 17:46 Order name: Basic Metabolic Panel EDMS 11/26 17:46 Order name: Calcium Level EDMS 11/26 17:46 Order name: Calcium Level EDMS 11/26 17:46 Order name: Calcium Level EDMS 11/26 17:46 Order name: Calcium Level EDMS 11/26 17:46 Order name: Lipid Profile EDMS 11/26 17:46 Order name: Lipid Profile EDMS 11/26 17:46 Order name: Magnesium EDMS 11/26 17:46 Order name: Magnesium EDMS 11/26 17:46 Order name: Magnesium EDMS 11/26 17:46 Order name: Magnesium EDMS 11/26 17:46 Order name: Phosphorus EDMS 11/26 17:46 Order name: Phosphorus EDMS 11/26 17:46 Order name: Phosphorus EDMS 11/26 17:46 Order name: Phosphorus EDMS 11/26 14:18 Order name: IV Saline Lock; Complete Time: 15:44 kg 11/26 14:18 Order name: Labs collected and sent; Complete Time: 15:44 kg 11/26 14:18 Order name: Urine Dipstick-Ancillary (obtain specimen); Complete Time: 15:20 kg 11/26 17:46 Order name: CONS Diabetic Education Consul EDMS 11/26 17:46 Order name: NPO EDMS 11/26 17:46 Order name: EKG Electrocardiogram EDMS 11/26 17:46 Order name: Chest Single View; Complete Time: 19:38 EDMS 11/26 18:18 Order name: BMP jl7 11/26 18:43 Order name: Glucose, Ancillary Testing; Complete Time: 18:44 EDMS 11/26 19:09 Order name: Basic Metabolic Panel; Complete Time: 19:15 EDMS 11/27 00:41 Order name: Glucose, Ancillary Testing; Complete Time: 01:10 EDMS 11/27 04:11 Order name: CBC with Automated Diff EDMS 11/27 04:30 Order name: Hemoglobin A1c EDMS 11/27 07:47 Order name: Glucose, Ancillary Testing EDMS 11/27 08:22 Order name: Basic Metabolic Panel EDMS 11/27 08:33 Order name: Glucose, Ancillary Testing EDMS 11/27 10:19 Order name: Glucose, Ancillary Testing EDMS 11/27 11:18 Order name: Glucose, Ancillary Testing EDMS Administered Medications: 16:38 Drug: Insulin Regular Human 10 units {Co-Signature: aa5 (Julieth Alonso RN).} Route: jl7 IVP; Site: left antecubital; 18:32 Follow up: Response: No adverse reaction; Blood sugar is lowered [facility] 16:38 Drug: NS 0.9% 2000 ml Route: IV; Rate: 1 bolus; Site: left antecubital; [facility] 18:28 Follow up: Response: No adverse reaction; IV Status: Completed infusion; IV Intake: jl7 2000ml Disposition: 11/28 08:10 Co-signature as Attending Physician, Maximiliano Cohen MD I agree with the assessment and dorita plan of care. Disposition Summary: 11/26/20 16:38 Hospitalization Ordered Hospitalization Status: Inpatient Admission [facility] Provider: Ernesto Cotton Condition: Stable [facility] Problem: an acute exacerbation jm Symptoms: are unchanged [facility] Bed/Room Type: Standard [facility] Location: [facility] ER HOLD(11/26/20 17:41) eb Room Assignment: ERHOLD-(11/26/20 17:41) eb Diagnosis - Diabetic ketoacidosis [facility] Forms: - Medication Reconciliation Form jmm - SBAR form jm Signatures: Dispatcher [employer] Maximiliano Castellon MD MD cha Mickail, Joel, PA PA jmm Leal, Jahala RN RN jl7 Sonia Ny Kristen, RN RN kg Julieth Alonso RN aa5 Corrections: (The following items were deleted from the chart) 11/26 15:53 15:19 CORONAVIRUS+LAB.BRZ ordered. EDMS EDMO 17:41 16:38 Telemetry/MedSurg (Inpatient) [facility] 17:41 16:38 [facility]
--- NOTE | 2020-11-26 16:38 | ER ---
Nurse's Notes [facility] Name: Michael Horne Age: 45 yrs Sex: Female : 1975 Arrival Date: 11/26/2020 Time: 12:48 Bed 3 Private MD: Diagnosis: Diabetic ketoacidosis Presentation: 11/26 14:08 Chief complaint: EMS states: PT stated she was in DKA and has not taken her insulin kg today. Blood glucose in route was 250. Coronavirus screen: Client denies travel out of the [place] in the last 14 days. At this time, unable to obtain information related to travel outside the [place] At this time, the client does not indicate any symptoms associated with coronavirus-19. Ebola Screen: Patient negative for fever greater than or equal to 101.5 degrees Fahrenheit, and additional compatible Ebola Virus Disease symptoms Patient denies exposure to infectious person. Patient denies travel to an Ebola-affected area in the 21 days before illness onset. Initial Sepsis Screen: Does the patient meet any 2 criteria? HR > 90 bpm. Does the patient have a suspected source of infection? No. Patient's initial sepsis screen is negative. Risk Assessment: Do you want to hurt yourself or someone else? Patient reports no desire to harm self or others. Onset of symptoms was November 25, 2020. 14:08 Method Of Arrival: EMS: [facility] kg 14:08 Acuity: MAEGAN 3 kg Triage Assessment: 14:12 General: Appears in no apparent distress. Behavior is calm, cooperative, appropriate kg for age, quiet. Pain: Complains of pain in right leg and left leg Pain currently is 10 out of 10 on a pain scale. at worst was 10 out of 10 on a pain scale. level that patient reports is acceptable is 5 out of 10 on a pain scale. Quality of pain is described as numb. 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 - Depo-provera kg Historical: - Allergies: 14:12 No Known Allergies; kg - Home Meds: 14:12 lisinopril Oral [Active]; Lantus Sub-Q [Active]; Hydrocodone-Acetaminophen Oral kg [Active]; gabapentin Oral [Active]; apidra [Active]; Abilify Oral [Active]; 3 types of anti depressant cannot recall the name [Active]; Humalog U-100 Insulin 100 unit/mL Sub-Q crtg [Active]; - PMHx: 14:12 Anxiety; Depression; Diabetes - IDDM; Hypertension; nerve pain; kg - PSHx: 14:12 None; kg - Immunization history:: Adult Immunizations not up to date, Client reports receiving the 2nd dose of the Covid vaccine, Date received: September 25, 2020 [employer] Client reports receiving the 1st dose of the Covid vaccine, August 31, 2020 [employer]. - Social history:: Smoking status: Patient reports the use of cigarette tobacco products, smokes one-half pack cigarettes per day, Patient uses alcohol, occasionally. Screenin/23 00:22 Abuse screen: Denies threats or abuse. Nutritional screening: No deficits noted. ea Tuberculosis screening: No symptoms or risk factors identified. Fall Risk IV access (20 points). Assessment: 11/26 15:30 General: Appears in no apparent distress. uncomfortable, Behavior is calm, cooperative. jl7 Pain: Complains of pain in right leg and left leg Pain currently is 10 out of 10 on a pain scale. Quality of pain is described as numb. Neuro: Level of Consciousness is awake, alert, obeys commands, Oriented to person, place, time, situation. Cardiovascular: Patient's skin is warm and dry. Respiratory: Airway is patent Respiratory effort is even, unlabored, Respiratory pattern is regular, symmetrical. Derm: Skin is pink, warm \T\ dry. 16:30 Reassessment: Patient appears in no apparent distress at this time. No changes from jl7 previously documented assessment. Patient and/or family updated on plan of care and expected duration. Pain level reassessed. Patient is alert, oriented x 3, equal unlabored respirations, skin warm/dry/pink. 17:30 Reassessment: Patient appears in no apparent distress at this time. No changes from jl7 previously documented assessment. Patient and/or family updated on plan of care and expected duration. Pain level reassessed. Patient is alert, oriented x 3, equal unlabored respirations, skin warm/dry/pink. 18:26 Reassessment: Patient appears in no apparent distress at this time. No changes from jl7 previously documented assessment. Patient and/or family updated on plan of care and expected duration. Pain level reassessed. Patient is alert, oriented x 3, equal unlabored respirations, skin warm/dry/pink. Vital Signs: 14:08 BP 108 / 83; Resp 20; Temp 98.1(TE); Pulse Ox 98% on R/A; Weight 54.43 kg (R); Height 5 kg ft. 8 in. (172.72 cm); Pain 5/10; 15:44 BP 136 / 68; Pulse 105; Resp 19; Pulse Ox 98% ; Pain 5/10; jl7 18:26 BP 130 / 87; Pulse 105; Resp 20; Pulse Ox 100% ; jl7 14:08 Body Mass Index 18.25 (54.43 kg, 172.72 cm) kg ED Course: 12:48 Patient arrived in ED. am2 14:12 Triage completed. kg 14:12 Arm band placed on left wrist. kg 14:17 Maintain EMS IV. Dressing intact. Good blood return noted. Site clean \T\ dry. Gauge \T\ kg site: 20 L AC. 15:11 Rui Fuller RN is Primary Nurse. [facility] 15:11 Edward Lopez PA is PHCP. [facility] 15:11 Maximiliano Cohen MD is Attending Physician. [facility] 16:38 Ernesto Cotton MD is Hospitalizing Provider. [facility] 19:30 Primary Nurse role handed off by Rui Fuller RN mw2 11/27 00:22 Patient has correct armband on for positive identification. Bed in low position. Call ea light in reach. Side rails up X2. 00:22 No provider procedures requiring assistance completed. Patient admitted, IV remains in ea place. 06:36 Inserted saline lock: 22 gauge in right forearm, using aseptic technique. Missed ds4 attempt(s): 22 gauge in right forearm. Bleeding controlled, band aid applied, catheter tip intact. 12:10 Rui Fuller RN is Primary Nurse. jl7 Administered Medications: 11/26 16:38 Drug: Insulin Regular Human 10 units {Co-Signature: aa5 (Julieth Alonso RN).} Route: jl7 IVP; Site: left antecubital; 18:32 Follow up: Response: No adverse reaction; Blood sugar is lowered jl7 16:38 Drug: NS 0.9% 2000 ml Route: IV; Rate: 1 bolus; Site: left antecubital; jl7 18:28 Follow up: Response: No adverse reaction; IV Status: Completed infusion; IV Intake: jl7 2000ml Intake: 18:28 IV: 2000ml; Total: 2000ml. jl7 Outcome: 16:38 Decision to Hospitalize by Provider. john 11/27 00:22 Admitted to ER Hold. Please see [facility] for further documentation. ea Condition: stable Instructed on the need for admit, Demonstrated understanding of instructions, follow-up care. 12:10 Patient left the ED. 7 Signatures: Edward Lopez PA PA jmm Swanson, Donovan ds4 Rui Fuller RN RN jl7 Aggie Avila am2 Melani Mcmahon RN RN ea Martin Gutierrez mw2 Jocelynn Thomas, GRAHAM RN Julieth Alonso RN aa5
[2020-11-26] MEDS ORDERED: INSULIN -REGULAR HUMAN 50 UNIT/0.5 ML ML ONE (16:56)
[2020-11-26] MEDS ORDERED: NA CHLORIDE 0.9% 2,000 ML ONE (16:57)
--- NOTE | 2020-11-26 17:29 | P.HP ---
Certification for Inpatient With expected LOS: >2 Midnights Patient will require the following post-hospital care: None Practitioner: I am a practitioner with admitting privileges, knowledge of patient current condition, hospital course, and medical plan of care. Services: Services provided to patient in accordance with Admission requirements found in Title 42 Section 412.3 of the Code of Federal Regulations <Geena Murphy - Last Filed: 11/26/20 17:47> Patient History Date of Service: 11/26/20 Reason for admission: DKA History of Present Illness: 45 year old female with PMHx of HTN , DM II, , anxiety , tobacco abuse presents to ED for nausea , vomiting , shortness of breath x 1 day. She was found to be hyperglycemic with blood sugar 250s. she has history of DKA with similar symptoms. Her work is noted for sodium 133, urine positive for THC. - Past Medical/Surgical History Diabetic: Yes -: DM I -: HTN -: chronic pain -: tobacco abuse - Social History Smoking Status: Current every day smoker Alcohol use: Yes CD- Drugs: No <Geena Murphy - Last Filed: 11/26/20 17:47> Date of Service: 11/26/20 - Past Medical/Surgical History Past Surgical History: Unable to obtain - Family History Family History: Reviewed- Non-Contributory (unable to obtain) <Ernesto Cotton - Last Filed: 11/26/20 22:15> Allergies No Known Drug Allergies Allergy (Unverified 12/22/14 21:50) Unknown Review of Systems is unable to be obtained <Ernesto Cotton - Last Filed: 11/26/20 22:15> Physical Examination - Studies Laboratory Data (last 24 hrs) 11/26/20 14:20: WBC 6.00, Hgb 13.6, Hct 40.4, Plt Count 238 11/26/20 14:20: Sodium 133 L, Potassium 4.3, BUN 22 H, Creatinine 0.99, Glucose 246 H, Total Bilirubin 0.6, AST 13 L, ALT 27, Alkaline Phosphatase 145 H, Lipase 36 L <Geena Murphy - Last Filed: 11/26/20 17:47> - Physical Exam General: Mild distress (AOx3, arousable to verbal stimuli, difficulty staying awake during conversation) HEENT: Sclerae nonicteric Respiratory: Clear to auscultation bilaterally, Normal air movement Cardiovascular: No edema, Regular rate/rhythm, No murmurs Gastrointestinal: Soft and benign, Non-distended, No tenderness Musculoskeletal: No erythema, No tenderness Integumentary: No rashes Neurological: Other (sleepy but arousable. moves all extremities, follows basic commands) - Studies Laboratory Data (last 24 hrs) 11/26/20 14:20: WBC 6.00, Hgb 13.6, Hct 40.4, Plt Count 238 11/26/20 14:20: Sodium 133 L, Potassium 4.3, BUN 22 H, Creatinine 0.99, Glucose 246 H, Total Bilirubin 0.6, AST 13 L, ALT 27, Alkaline Phosphatase 145 H, Lipase 36 L <Ernesto Cotton - Last Filed: 11/26/20 22:15> Assessment and Plan Discharge Plan: Home Plan to discharge in: 48 Hours - Advance Directives Does patient have a Living Will: No Does patient have a Durable POA for Healthcare: No - Code Status/Comfort Care Code Status Assessed: Yes Code Status: Full Code Physician Review Additional Text: Assessment: Mild DKA DM II Nausea & Vomiting HTN Tobacco abuse Plan: Mild DKA. Continue IV insulin 10 units. Continue with hourly Accu-Cheks, every 4 chemistries. Cover with prophylactic antibiotic Levaquin. Continue with ICU level of care. monitor patient to tolerate po and gap is closed. DM II: Will order A1c. Continue accu checks and IV insulin 10 units Nausea & Vomiting: NPO for now. Zofran as needed HTN: Home meds as needed. Continue to monitor Tobacco abuse: Smoking cessation counseling given Time Spent Managing Pts Care (In Minutes): 55 <eGena Murphy - Last Filed: 11/26/20 17:47> Physician Review Additional Text: Patient seen and examined. difficult to carry conversation due to falling asleep, pt did not receive any sedatives in ED, but urine +opioids/THC, reports she takes lyrica DKA with mild anion gap acidosis, will treat with IV insulin 10u now, glc q1hr for now, repeat BMPs q4hr over night she is unsure how much insulin she takes, states her pharmacy is [facility] in [place] <Ernesto Cotton - Last Filed: 11/26/20 22:15>
[2020-11-26] MEDS ORDERED: ONDANSETRON 4 MG/2 ML VIAL IV PRN (17:38)
[2020-11-26] MEDS ORDERED: INSULIN -REGULAR HUMAN 100 UNIT in NA CHLORIDE 0.9% 100 ML IV SCH (17:45)
[2020-11-26] MEDS ORDERED: Levofloxacin 750mg IV 750 MG/150 ML BAG IV SCH (18:00)
[2020-11-26] MEDS ORDERED: D5.45NS W/KCL 20MEQ 1,000 ML IV SCH (18:00)
[2020-11-26 19:04] LABS: Potassium 4.2 mmol/L (3.5-5.1)
--- NOTE | 2020-11-26 19:35 | RAD REPORT ---
EXAM DESCRIPTION: RAD - Chest Single View - 11/26/2020 6:30 pm CLINICAL HISTORY: DKA COMPARISON: October 14 TECHNIQUE: AP portable chest image was obtained 11/26/2020 6:30 pm . FINDINGS: Lungs are clear. Heart and vasculature are normal. No measurable pleural effusion and no p neumothorax. No acute bony abnormality seen. No acute aortic findings suspected. IMPRESSION: No acute cardiopulmonary process. No significant change from comparison study.
[2020-11-26] MEDS ORDERED: NACHLORIDE 0.45% 1,000 ML IV SCH (20:00)
[2020-11-26] MEDS ORDERED: Levofloxacin 750mg IV 750 MG/150 ML BAG IV ONE (20:34)
[2020-11-26 20:59] LABS: Potassium 4.4 mmol/L (3.5-5.1)
[2020-11-26] MEDS ORDERED: NACHLORIDE 0.45% 1,000 ML IV ONE (22:56)
[2020-11-27 00:35] LABS: Potassium 4.3 mmol/L (3.5-5.1)
[2020-11-27 00:46] VITALS: BMI 30.4
[2020-11-27 04:04] LABS: Basophils % 0.7 % (0-1.3); Hematocrit 34.9 % (36.0-45.0); Lymphocytes % 48.9 % (15.3-44.8); MPV 8.7 fL (7.6-11.3); RBC Red Blood Cell Count 3.82 M/uL (3.86-4.86)
[2020-11-27 04:24] LABS: Phosphorus 2.3 mg/dL (2.5-4.9); Potassium 4.2 mmol/L (3.5-5.1)
[2020-11-27 04:28] LABS: Magnesium 1.4 mg/dL (1.8-2.4)
[2020-11-27] MEDS ORDERED: NA CHLORIDE 0.9% 1,000 ML IV ONE (05:17)
[2020-11-27] MEDS ORDERED: Magnesium Sulfate 2gm IVPB 2 G/50 ML BAG IV ONE ×2 (05:17→05:44)
[2020-11-27] MEDS ORDERED: D50W 25 GM/50 ML SYRINGE IV PRN (05:37)
[2020-11-27] MEDS ORDERED: GLUCAGON 1 MG/VIAL IM PRN (05:37)
[2020-11-27] MEDS ORDERED: NA CHLORIDE 0.9% 1,000 ML ONE (05:44)
[2020-11-27] MEDS ORDERED: INSULIN -REGULAR HUMAN 100 UNIT in NA CHLORIDE 0.9% 100 ML IV SCH (05:45)
[2020-11-27] MEDS ORDERED: D5 0.45 NS 1,000 ML IV SCH (06:00)
[2020-11-27] MEDS ORDERED: INSULIN -REGULAR HUMAN 50 UNIT/0.5 ML ML SQ SCH (07:30)
[2020-11-27] MEDS ORDERED: PREGABALIN 150 MG CAP PO PRN (07:42)
[2020-11-27] MEDS ORDERED: ACETAMINOPHEN 500 MG TAB PO PRN (07:42)
[2020-11-27 08:13] LABS: BUN Blood Urea Nitrogen 10 mg/dL (7-18); Glucose Level 207 mg/dL (74-106); Potassium 4.1 mmol/L (3.5-5.1); Sodium Level 136 mmol/L (136-145)
[2020-11-27 08:21] LABS: Bicarbonate 14 mmol/L (21-32)
[2020-11-27] MEDS ORDERED: PREGABALIN 75 MG CAP PO ONE (08:34)
[2020-11-27] MEDS ORDERED: POTASSIUM PHOS IN 0.9 % NACL 15 MMOL/250 ML BAG IV ONE (09:00)
[2020-11-27] MEDS ORDERED: D5 0.45 NS 1,000 ML IV ONE (09:14)
[2020-11-27 12:03] VITALS: BP 132/80; TEMP 97.5
[2020-11-27 12:27] VITALS: O2SAT 100
--- NOTE | 2020-11-27 16:06 | P.DS ---
Admission Date: 11/26/20 Discharge Date: 11/27/20 Disposition: AMA-LEFT AGAINST MEDICAL ADVIC Discharge Condition: FAIR Reason for Admission: DKA Procedures: CXR (11/26): No acute cardiopulmonary process. No significant change from comp arison study. Problem list Acute DKA DM II, insulin-dependent Nausea & Vomiting HTN Tobacco abuse Marijuana use Brief History of Present Illness: 45 year old female with PMHx of HTN , DM II, , anxiety , tobacco abuse presents to ED for nausea , vomiting , shortness of breath x 1 day. She was found to be hyperglycemic with blood sugar 250s. she has history of DKA with similar symptoms. Her work is noted for sodium 133, urine positive for THC. Hospital Course: Patient was initially treated with IV insulin with initial improvement of her anion gap acidosis, however then slightly worsened. She was started on an insulin drip continue to have improvement. Patient was feeling better but still continued with acidosis. She was upset with her rooming situation and left AGAINST MEDICAL ADVICE. It was explained to her that leaving AGAINST MEDICAL ADVICE at this point would increase her risk of getting worse and even possibly . She expressed understanding, signed out AMA. Vital Signs/Physical Exam: Temp Pulse Resp BP Pulse Ox 97.5 F 104 H 19 132/80 97 11/27/20 12:00 11/27/20 12:00 11/27/20 12:00 11/27/20 12:00 11/27/20 12:00 General: Alert, In no apparent distress, Oriented x3 HEENT: Sclerae nonicteric Neck: Supple Respiratory: Clear to auscultation bilaterally, Normal air movement Cardiovascular: No edema, Regular rate/rhythm, Normal S1 S2 Gastrointestinal: Soft and benign, Non-distended, No tenderness Musculoskeletal: No erythema, No tenderness Integumentary: No rashes Neurological: Normal speech, Normal affect Laboratory Data at Discharge: WBC 6.10 K/uL (4.3-10.9) 11/27/20 03:43 Hgb 11.7 g/dL (12.0-15.0) L 11/27/20 03:43 Hct 34.9 % (36.0-45.0) L 11/27/20 03:43 Plt Count 191 K/uL (152-406) 11/27/20 03:43 Sodium 136 mmol/L (136-145) 11/27/20 07:33 Potassium 4.1 mmol/L (3.5-5.1) 11/27/20 07:33 BUN 10 mg/dL (7-18) 11/27/20 07:33 Creatinine 0.69 mg/dL (0.55-1.3) 11/27/20 07:33 Glucose 207 mg/dL (74-106) H 11/27/20 07:33 Phosphorus 2.3 mg/dL (2.5-4.9) L 11/27/20 03:43 Magnesium 1.4 mg/dL (1.8-2.4) L* D 11/27/20 03:43 Total Bilirubin 0.6 mg/dL (0.2-1.0) 11/26/20 14:20 AST 13 U/L (15-37) L 11/26/20 14:20 ALT 27 U/L (12-78) 11/26/20 14:20 Alkaline Phosphatase 145 U/L (45-117) H 11/26/20 14:20 Triglycerides 303 mg/dL (<150) H 11/27/20 03:43 Cholesterol 123 mg/dL (<200) 11/27/20 03:43 HDL Cholesterol 40 mg/dL (40-60) 11/27/20 03:43 Cholesterol/HDL Ratio 3.08 11/27/20 03:43 Lipase 36 U/L (73-393) L 11/26/20 14:20 Followup: NONE,NONE [Primary Care Provider] - Time spent managing pt's care (in minutes): 45
== END 2020-11-27 12:09 | disposition left against medical advice (07) | DRG 639 ==
LOC: ER 12:41 → ERHOLD 17:41
PROVIDERS: ADMIT Hospitalist; ATTEND Hospitalist
DX: E11.10 Type 2 diabetes mellitus with ketoacidosis without coma (principal); R11.2 Nausea with vomiting, unspecified; I10 Essential (primary) hypertension; F17.210 Nicotine dependence, cigarettes, uncomplicated; F12.90 Cannabis use, unspecified, uncomplicated; Z79.4 Long term (current) use of insulin; Z20.822 Contact with and (suspected) exposure to COVID-19; Z53.29 Procedure and treatment not carried out because of patient's decision for other reasons
CPT/HCPCS: 36415; 71045; 80048; 80061; 80076; 80307; 81003; 81025; 82310; 82805; 82947; 83036; 83690; 83735; 84100; 85025; 96361; 96374; 99285; J3475; J7030; J7799; U0003

== ENCOUNTER 2021-04-27 17:16 | Emergency (ER) | payer BC ==
[~2021-04-27 17:16] MED LIST: NA CHLORIDE 0.9% 2,000 ML ONE; NALOXONE 0.4 MG/ML VIAL ONE
[2021-04-27] MEDS ORDERED: LIDOCAINE 2% MPF 5 ML VIAL IV ONE (17:17)
[2021-04-27] MEDS ORDERED: ETOMIDATE 20 MG/10 ML VIAL IV ONE ×2 (17:17→17:24)
[2021-04-27] MEDS ORDERED: SUCCINYLCHOLINE 20 MG/ML (10 ML) IV ONE ×2 (17:17→17:25)
[2021-04-27] MEDS ORDERED: MIDAZOLAM HCL 2 MG/2 ML INJ ONE ×2 (17:23→17:30)
[2021-04-27] MEDS ORDERED: RSI MEDICATION KIT IV ONE (17:26)
--- OUTSIDE RECORDS SUMMARY | 2021-04-27 17:27 | XMS REPORT | Continuity of Care Document ---
:1975 Author Organization [facility] t Address [address] [place] [address] Care Team Providers Name Role Phone Berna FUENTES, A Primary Care Physician Berna FUENTES, A Attending Clinician Jordan FUENTES Attending Clinician Tanja CORONEL Attending Clinician Unavailable Rodrigo FUENTES, H Attending Clinician Only, Db Test Attending Clinician Unavailable [place] PERLA Attending Clinician CHEYENNE Attending Clinician Unavailable JORDAN Attending Clinician Unavailable Umang GODINEZSW, L Attending Clinician HARPREET Attending Clinician Unavailable 2, Lab Attending Clinician Unavailable Doctor Unassigned, Name Attending Clinician Unavailable OMRANIAN Attending Clinician Unavailable OMRANIAN Admitting Clinician Unavailable Payers Payer Name Policy Type Policy Number Effective Date Expiration Date S ource Problems Condition Condition Condition Status Onset Resolution Last Treating Co mments Source Name Details Category Date Date Treatment Clinician Date Hypokalemi Hypokalemi Disease Active 2020-0 U nivers a a 6-22 ity of 00:00: [address] Gallstones Gallstones Disease Active 2020-0 U nivers 6-22 ity of 00:00: [place] 00 Medical Branch Cholecysti Cholecysti Disease Active U nivers tis tis 6-22 ity of without without 00:00: [place] cholelithi cholelithi 00 Me dical asis asis Branch Asymptomat Asymptomat Disease Active U nivers ic ic 6-08 ity of hypertensi hypertensi [place] ve urgency 00 Me dical Branch Severe Severe Disease Active [facility] depression depression 6-08 it y of 00:00: [place] [facility] Generalize Generalize Disease Active U nivers d anxiety d anxiety 6-08 ity of disorder disorder 00:00: [place] [facility] Diabetic Diabetic Disease Active Unive rs polyneurop polyneurop 6-08 it y of athy athy 00:00: [place] associated associated 00 Me dical with type with type Bran ch 1 diabetes 1 diabetes mellitus mellitus History of History of Disease Active U nivers suicidal suicidal 6-08 ity of ideation ideation 00:00: [place] [facility] Dyslipidem Dyslipidem Disease Active U nivers ia ia 6-08 ity of 00:00: [place] [facility] Diabetic Diabetic Disease Active Unive rs polyneurop polyneurop 6-08 it y of athy athy 00:00: [place] associated associated 00 Me dical with type with type Bran ch 1 diabetes 1 diabetes mellitus mellitus Acute Acute Disease Active [facility] renal renal 7-03 ity of failure failure 00:00: [place] [id number] Medical Branch Acute Acute Disease Active [facility] bronchitis bronchitis 5-18 Valerie kes - due to due to 00:00: Medical Rhinovirus Rhinovirus 00 Ce nter Tension Tension Disease Active [facility] type type 5-18 [facility] headache headache 00:00: Medica l 00 [place] Calculus Calculus Disease [facility] of [facility] - gallbladde gallbladde 00:00: Me dical r without r without 00 Cent er cholecysti cholecysti tis tis without without obstructio obstructio n n AUBREY (acute AUBREY (acute Disease Active [facility] kidney kidney 5-18 [facility] injury) injury) 00:00: Medical 00 Center Hyperkalem Hyperkalem Disease Active [facility] ia ia 5-17 [facility] 00[facility]: [facility] 00 Center Sinus Sinus Disease Active [facility] tachycardi tachycardi 5-17 Valerie kes - a a 00:00: Medical 00 Center Sepsis Sepsis Disease Active [facility] 5-17 [facility] 00:[facility]: Medical 00 [place] DKA DKA Disease Active [facility] (diabetic (diabetic -17 [facility] - ketoacidos ketoacidos 00:00: Me dical es) es) 00 Center Altered Altered Disease Active [facility] mental mental 5-17 [facility] state state 00:00: Medical 00 Center Cigarette Cigarette Disease Active [facility] nicotine nicotine 5-17 [facility] dependence dependence 00:00: Me dical with with 00 Center nicotine-i nicotine-i nduced nduced disorder disorder Acute Acute Disease Active [facility] metabolic metabolic 5-17 [facility] - encephalop encephalop 00:00: Me dical athy athy 00 Center Wheezing Wheezing Disease [facility] 00:[facility]: Medical 00 [place] Diabetes Diabetes Disease Active Unive rs type 1, type 1, 5- ity of uncontroll uncontroll 00:00: [place] 00 [facility] Branch Obesity Obesity Disease Active Univers (BMI (BMI 8-12 ity of 30-39.9) 30-39.9) 00:00: [place] 00 Medical Branch Diabetes Diabetes Disease Active Unive rs 8-12 ity of 00:00: [place] 00 Medical Branch Intractabl Intractabl Disease Active U nivers e vomiting e vomiting 8-12 it y of with with 00:00: [place] nausea nausea 00 Medical Branch Fibromyalg Fibromyalg Disease Active U nivers ia ia 1-25 ity of 00:00: [place] 00 Medical Branch Positive Positive Disease Active Unive rs SUN SUN 1-25 ity of (antinucle (antinucle [place] 00 Medical antibody) antibody) Bran ch Pain in Pain in Disease Active Univers both hands both hands 1-25 it y of 00:00: [place] 00 Medical Branch Sicca Sicca Disease Active Univers 1-25 ity of 00:00: [place] 00 Medical Branch Sicca Sicca Disease Active Univers 1-25 ity of 00:00: [place] 00 Medical Branch Vitamin D Vitamin D Disease Active Uni vers deficiency deficiency 6-11 it y of 00:00: [place] 00 Medical Branch Uncontroll Uncontroll Disease Active U nivers ed type 1 ed type 1 09 ity of diabetes diabetes 00:00: [place] with with 00 Medical neuropathy neuropathy Br anch ALTAMIRANO ALTAMIRANO Disease Active Univers (nonalcoho (nonalcoho 09-13 it y of lic lic 00:00: [place] steatohepa steatohepa 00 Me dical titis) titis) Branch Normocytic Normocytic Disease Active U nivbetito anemia anemia 09-13 ity of 00:00: [place] 00 Medical Branch Neuropathy Neuropathy Disease Active U nivers 09-13 ity of 00:00: [place] 00 Medical Branch Elevated Elevated Disease Active Unive rs alkaline alkaline 09-13 ity of phosphatas phosphatas [place] e level e level 00 Medical Branch DKA DKA Disease Active [facility] (diabetic (diabetic 07-31 ity of ketoacidos ketoacidos 00:[place]: [place] es) 00 Medical [facility] Tobacco Tobacco Disease Active [facility] use use - ity of disorder disorder 00:00: [place] 00 Medical Branch Pap smear Pap smear Disease Active Overview: Univers for for 4-23 Formattin ity of cervical cervical 00:00: g of this [place] as cancer cancer 00 note Medical screening screening might be Br anch different from the original. ICD10 Diagnosis Term Tool Marker Utility Irregular Irregular Disease Active Uni vers menstrual menstrual 4-23 ity of cycle cycle 00:00: [place] 00 Medical Branch Presence Presence Disease Active Overview: Un jimmy of of 4-23 Formattin ity of intrauteri intrauteri 00:00: g of this [place] ne ne 00 note Medical contracept contracept might be Branch gian device gian device different from the original. Mirena IUD inserted 05/2008. Nicotine Nicotine Disease Active Unive rs dependence dependence 4-23 it y of with with 00:00: [place] current current 00 Medical use use Branch Pain Pain Disease Active Univers pelvic pelvic 4-23 ity of 00:00: [place] 00 Medical Branch Candidiasi Candidiasi Disease Active U nivers s of vulva s of vulva 07-28 it y of and vagina and vagina 00:00[place] Headache Headache Disease Active Overview: Un jimmy 07-28 Formattin ity of 00:00: g of this [place] 00 note Medical might be Branch different from the original. ICD10 Diagnosis Term Tool Marker Utility Urinary Urinary Disease Active Univers frequency frequency 07-28 ity of 00:00: [place] 00 Medical Branch Presence Presence Disease Active Overview: Un jimmy of of 07-28 Formattin ity of intrauteri intrauteri 00:00: g of this [facility] 00 note Medical contracept contracept might be Branch gian device gian device different from the original. Mirena IUD inserted 05/2008. Allergies, Adverse Reactions, Alerts Allergy Allergy Status Severity Reaction(s) Onset Inactive Treating Comm ents Source Name Type Date Date Clinician NO KNOWN Drug Active Univers ALLERGIE Class ity of S [facility] Social History Social Habit Start Date Stop Date Quantity Comments Source History SDOH [facility] History SDRI University o f Alcohol Std Drinks [facility] History [facility] University o f Alcohol Binge [facility] History of tobacco Cigarette Smoker University of use [facility] Exposure to Not sure University of SARS-CoV-2 (event) [facility] Alcohol intake 2020-09-28 2020-09-28 0 /d University of 00:00:00 00:00:00 [facility] Alcohol Comment 2015-01-24 2015-01-24 1-2 glassed of Unive rsity of 00:00:00 00:00:00 red wine daily [facility] Cigarettes smoked 2012-07-28 2012-07-28 Univers ity of current (pack per 00:00:00 00:00:00 [facility] ) - Reported Branch Cigarette 2012-07-28 2012-07-28 University of pack-years 00:00:00 00:00:00 [facility] Tobacco use and 2012-07-28 2012-07-28 Never used Universit y of exposure 00:00:00 00:00:00 [facility] Tobacco Comment 2012-07-28 2012-07-28 1/2 pkg per day Univ ersity of 00:00:00 00:00:00 [facility] Sex [birth year] Universit y of 00:00:00 00:00:00 [facility] Smoking Status Start Date Stop Date Source Current every day smoker 2018-08-21 00:00:00 [facility] Medications Ordered Filled Start Stop Current Ordering Indication Dosage Frequency Signature Comments Components Source Medication Medication Date Date Medication? Clinician (SIG) Name Name METFORMIN 2020-04 Yes [id number] TAKE TWO Univers 500 mg 2-28 (2) ity of tablet 00:00: TABLET(S) [place] 00 BY MOUTH Medical TWICE A Branch DAY WITH MEALS. PREGABALIN Yes [id number] TAKE ONE Univers 150 mg 9-20 (1) ity of capsule 00:00: [place] BY MOUTH Medical TWICE A Branch DAY FOR 1 WEEK. IF PAIN NOT BETTER, THEN TAKE 2 CAPSULES BY MOUTH TWICE DAILY. PREGABALIN Yes [id number] TAKE ONE Univers 150 mg 9-20 (1) ity of capsule 00:00: [place] BY MOUTH Medical TWICE A Branch DAY FOR 1 WEEK. IF PAIN NOT BETTER, THEN TAKE 2 CAPSULES BY MOUTH TWICE DAILY. PREGABALIN Yes [id number] TAKE ONE Univers 150 mg 9-20 (1) ity of capsule 00:00: [place] BY MOUTH Medical TWICE A Branch DAY FOR 1 WEEK. IF PAIN NOT BETTER, THEN TAKE 2 CAPSULES BY MOUTH TWICE DAILY. PREGABALIN Yes [id number] TAKE ONE Univers 150 mg 9-20 (1) ity of capsule 00:00: [place] 00 BY MOUTH Medical TWICE A Branch DAY FOR 1 WEEK. IF PAIN NOT BETTER, THEN TAKE 2 CAPSULES BY MOUTH TWICE DAILY. OXCARBAZEPI Yes [id number] TAKE ONE Univers NE 300 mg 9-08 (1) ity of tablet 00:00: TABLET(S) [place] 00 BY MOUTH Medical TWICE A Branch DAY. OXCARBAZEPI Yes [id number] TAKE ONE Univers NE 300 mg 9-08 (1) ity of tablet 00:00: TABLET(S) BY MOUTH Medical TWICE A Branch DAY. OXCARBAZEPI Yes [id number] TAKE ONE Univers NE 300 mg 9-08 (1) ity of tablet 00:00: TABLET(S) 00 BY MOUTH Medical TWICE A Branch DAY. OXCARBAZEPI 2020-0 Yes [id number] TAKE ONE Univers NE 300 mg 9-08 (1) ity of tablet 00:00: TABLET(S) [place] 00 BY MOUTH Medical TWICE A Branch DAY. OXCARBAZEPI 2021-0 Yes [id number] TAKE ONE Univers NE 300 mg 9-08 (1) ity of tablet 00:00: TABLET(S) [place] 00 BY MOUTH Medical TWICE A Branch DAY. OXCARBAZEPI 2020-0 Yes [id number] TAKE ONE Univers NE 300 mg 9-08 (1) ity of tablet 00:00: TABLET(S) 00 BY MOUTH Medical TWICE A Branch DAY. metFORMIN 2020-0 Yes [id number] 1000mg Take 2 Univers 500 mg 8-02 tablets by ity of tablet 00:00: mouth (two) Medical times Branch daily with meals. metFORMIN 2020-0 Yes [id number] 1000mg Take 2 Univers 500 mg 8-02 tablets by ity of tablet 00:00: mouth (two) Medical times Branch daily with meals. metFORMIN 2020-0 Yes [id number] 1000mg Take 2 Univers 500 mg 8-02 tablets by ity of tablet 00:00: mouth (two) Medical times Branch daily with meals. metFORMIN 2020-0 Yes [id number] 1000mg Take 2 Univers 500 mg 8-02 tablets by ity of tablet 00:00: mouth (two) Medical times Branch daily with meals. metFORMIN 2020-0 Yes [id number] 1000mg Take 2 Univers 500 mg 8-02 tablets by ity of tablet 00:00: mouth (two) Medical times Branch daily with meals. metFORMIN 2020-0 Yes [id number] 1000mg Take 2 Univers 500 mg 8-02 tablets by ity of tablet 00:00: mouth (two) Medical times Branch daily with meals. metFORMIN 2020-0 Yes [id number] 1000mg Take 2 Univers 500 mg 8-02 tablets by ity of tablet 00:00: mouth (two) Medical times Branch daily with meals. metFORMIN 2020-0 Yes [id number] 1000mg Take 2 Univers 500 mg 8-02 tablets by ity of tablet 00:00: mouth 2 00 (two) Medical times Branch daily with meals. metFORMIN 2020-0 Yes [id number] 1000mg Take 2 Univers 500 mg 8-02 tablets by ity of tablet 00:00: mouth 2 (two) Medical times Branch daily with meals. metFORMIN 2020-0 2020- No [id number] 1000mg Take 2 Univers 500 mg 8-02 12-28 tablets by ity of tablet 00:00: 00:00 mouth 2 [place] 00 :00 (two) Medical times Branch daily with meals. PAROXETINE 2020-2020- No 40mg Take 40 mg Univers HCL ORAL 7-12 07-12 by mouth ity of 22:20: 00:00 daily. [place] 27 :00 Medical Branch busPIRone 2020-0 Yes [id number] 15mg Take 1 Un jimmy 15 mg 7-12 tablet by ity of tablet 00:00: mouth 3 00 (three) Medical times Branch daily. buPROPion 2020-0 Yes [id number] 300mg Take 1 U nivers XL 300 mg 7-12 tablet by ity o f 24 hr 00:00: mouth [place] tablet 00 daily. Medical Branch ARIPiprazol 2020-0 Yes [id number] 10mg Take 1 Univers e 10 mg 7-12 tablet by ity of tablet 00:00: mouth [place] 00 daily. Medical Branch PARoxetine 2020-0 Yes [id number] 40mg Take 1 U nivers mesylate 40 7-12 tablet by ity of mg tablet 00:00: mouth [place] 00 every Medical morning. Branch cyclobenzap 2020-0 Yes [id number] 10mg Take 1 Univers rine 10 mg 7-12 tablet by ity of tablet 00:00: mouth 2 00 (two) Medical times Branch daily. naproxen 2020-0 Yes [id number] 500mg Take 1 U nivers 500 mg 7-12 tablet by ity of tablet 00:00: mouth 2 00 (two) Medical times Branch daily with meals. lisinopriL 2020-0 Yes [id number] 20mg Take 1 Un jimmy 20 mg 7-12 tablet by ity of tablet 00:00: mouth [place] 00 daily. Medical Branch busPIRone 2020-0 Yes [id number] 15mg Take 1 Un jimmy 15 mg 7-12 tablet by ity of tablet 00:00: mouth 3 [place] 00 (three) Medical times Branch daily. buPROPion 2020-0 Yes [id number] 300mg Take 1 U nivers XL 300 mg 7-12 tablet by ity o f 24 hr 00:00: mouth [place] tablet 00 daily. Medical Branch ARIPiprazol 2020-0 Yes [id number] 10mg Take 1 Univers e 10 mg 7-12 tablet by ity of tablet 00:00: mouth [place] 00 daily. Medical Branch PARoxetine 2020-0 Yes [id number] 40mg Take 1 U nivers mesylate 40 7-12 tablet by ity of mg tablet 00:00: mouth [place] 00 every Medical morning. Branch cyclobenzap 2020-0 Yes [id number] 10mg Take 1 Univers rine 10 mg 7-12 tablet by ity of tablet 00:00: mouth 2 00 (two) Medical times Branch daily. naproxen 2020-0 Yes [id number] 500mg Take 1 U nivers 500 mg 7-12 tablet by ity of tablet 00:00: mouth 2 (two) Medical times Branch daily with meals. lisinopriL 0 Yes [id number] 20mg Take 1 Un jimmy 20 mg 7-12 tablet by ity of tablet 00:00: mouth [place] 00 daily. Medical Branch busPIRone 0 Yes [id number] 15mg Take 1 Un jimmy 15 mg 7-12 tablet by ity of tablet 00:00: mouth 3 00 (three) Medical times Branch daily. buPROPion 2020-0 Yes [id number] 300mg Take 1 U nivers XL 300 mg 7-12 tablet by ity o f 24 hr 00:00: mouth [place] tablet 00 daily. Medical Branch ARIPiprazol 2020-0 Yes [id number] 10mg Take 1 Univers e 10 mg 7-12 tablet by ity of tablet 00:00: mouth [place] 00 daily. Medical Branch PARoxetine 2020-0 Yes [id number] 40mg Take 1 U nivers mesylate 40 7-12 tablet by ity of mg tablet 00:00: mouth [place] 00 every Medical morning. Branch cyclobenzap 2020-0 Yes [id number] 10mg Take 1 Univers rine 10 mg 7-12 tablet by ity of tablet 00:00: mouth 2 00 (two) Medical times Branch daily. naproxen 2020-0 Yes [id number] 500mg Take 1 U nivers 500 mg 7-12 tablet by ity of tablet 00:00: mouth 2 00 (two) Medical times Branch daily with meals. lisinopriL 0 Yes [id number] 20mg Take 1 Un jimmy 20 mg 7-12 tablet by ity of tablet 00:00: mouth [place] 00 daily. Medical Branch busPIRone 2020-0 Yes [id number] 15mg Take 1 Un jimmy 15 mg 7-12 tablet by ity of tablet 00:00: mouth 3 [place] 00 (three) Medical times Branch daily. buPROPion 2020-0 Yes [id number] 300mg Take 1 U nivers XL 300 mg 7-12 tablet by ity o f 24 hr 00:00: mouth [place] tablet 00 daily. Medical Branch ARIPiprazol Yes [id number] 10mg Take 1 Univers e 10 mg 7-12 tablet by ity of tablet 00:00: mouth [place] 00 daily. Medical Branch PARoxetine 0 Yes [id number] 40mg Take 1 U nivers mesylate 40 7-12 tablet by ity of mg tablet 00:00: mouth [place] 00 every Medical morning. Branch cyclobenzap 0 Yes [id number] 10mg Take 1 Univers rine 10 mg 7-12 tablet by ity of tablet 00:00: mouth 2 (two) Medical times Branch daily. naproxen Yes [id number] 500mg Take 1 U nivers 500 mg 7-12 tablet by ity of tablet 00:00: mouth 2 (two) Medical times Branch daily with meals. lisinopriL 2020-0 Yes [id number] 20mg Take 1 Un jimmy 20 mg 7-12 tablet by ity of tablet 00:00: mouth [place] 00 daily. Medical Branch busPIRone 2020- Yes [id number] 15mg Take 1 Un jimmy 15 mg 7-12 tablet by ity of tablet 00:00: mouth 3 00 (three) Medical times Branch daily. buPROPion 2020-0 Yes [id number] 300mg Take 1 U nivers XL 300 mg 7-12 tablet by ity o f 24 hr 00:00: mouth [place] tablet 00 daily. Medical Branch ARIPiprazol 2020-0 Yes [id number] 10mg Take 1 Univers e 10 mg 7-12 tablet by ity of tablet 00:00: mouth [place] 00 daily. Medical Branch PARoxetine 2020-0 Yes [id number] 40mg Take 1 U nivers mesylate 40 7-12 tablet by ity of mg tablet 00:00: mouth [place] 00 every Medical morning. Branch cyclobenzap 2020-0 Yes [id number] 10mg Take 1 Univers rine 10 mg 7-12 tablet by ity of tablet 00:00: mouth 2 [place] 00 (two) Medical times Branch daily. naproxen 2020-0 Yes [id number] 500mg Take 1 U nivers 500 mg 7-12 tablet by ity of tablet 00:00: mouth 2 [place] 00 (two) Medical times Branch daily with meals. lisinopriL 2020-0 Yes [id number] 20mg Take 1 Un jimmy 20 mg 7-12 tablet by ity of tablet 00:00: mouth [place] 00 daily. Medical Branch busPIRone 2020-0 Yes [id number] 15mg Take 1 Un jimmy 15 mg 7-12 tablet by ity of tablet 00:00: mouth 3 [place] 00 (three) Medical times Branch daily. buPROPion 2020-0 Yes [id number] 300mg Take 1 U nivers XL 300 mg 7-12 tablet by ity o f 24 hr 00:00: mouth [place] tablet 00 daily. Medical Branch ARIPiprazol 0 Yes [id number] 10mg Take 1 Univers e 10 mg 7-12 tablet by ity of tablet 00:00: mouth [place] 00 daily. Medical Branch PARoxetine 2020-0 Yes [id number] 40mg Take 1 U nivers mesylate 40 7-12 tablet by ity of mg tablet 00:00: mouth [place] 00 every Medical morning. Branch cyclobenzap 0 Yes [id number] 10mg Take 1 Univers rine 10 mg 7-12 tablet by ity of tablet 00:00: mouth 2 [place] 00 (two) Medical times Branch daily. naproxen 2020-0 Yes [id number] 500mg Take 1 U nivers 500 mg 7-12 tablet by ity of tablet 00:00: mouth 2 [place] 00 (two) Medical times Branch daily with meals. lisinopriL 2020-0 Yes [id number] 20mg Take 1 Un jimmy 20 mg 7-12 tablet by ity of tablet 00:00: mouth [place] 00 daily. Medical Branch busPIRone 2020-0 Yes [id number] 15mg Take 1 Un jimmy 15 mg 7-12 tablet by ity of tablet 00:00: mouth 3 [place] 00 (three) Medical times Branch daily. buPROPion 2020-0 Yes [id number] 300mg Take 1 U nivers XL 300 mg 7-12 tablet by ity o f 24 hr 00:00: mouth [place] tablet 00 daily. Medical Branch ARIPiprazol 2020-0 Yes [id number] 10mg Take 1 Univers e 10 mg 7-12 tablet by ity of tablet 00:00: mouth [place] 00 daily. Medical Branch PARoxetine 2020- Yes [id number] 40mg Take 1 U nivers mesylate 40 7-12 tablet by ity of mg tablet 00:00: mouth [place] 00 every Medical morning. Branch cyclobenzap Yes [id number] 10mg Take 1 Univers rine 10 mg 7-12 tablet by ity of tablet 00:00: mouth 2 00 (two) Medical times Branch daily. naproxen Yes [id number] 500mg Take 1 U nivers 500 mg 7-12 tablet by ity of tablet 00:00: mouth 2 00 (two) Medical times Branch daily with meals. lisinopriL Yes [id number] 20mg Take 1 Un jimmy 20 mg 7-12 tablet by ity of tablet 00:00: mouth [place] 00 daily. Medical Branch busPIRone Yes [id number] 15mg Take 1 Un jimmy 15 mg 7-12 tablet by ity of tablet 00:00: mouth 3 00 (three) Medical times Branch daily. buPROPion 2020-0 Yes [id number] 300mg Take 1 U nivers XL 300 mg 7-12 tablet by ity o f 24 hr 00:00: mouth [place] tablet 00 daily. Medical Branch ARIPiprazol 2020-0 Yes [id number] 10mg Take 1 Univers e 10 mg 7-12 tablet by ity of tablet 00:00: mouth [place] 00 daily. Medical Branch PARoxetine 2020-0 Yes [id number] 40mg Take 1 U nivers mesylate 40 7-12 tablet by ity of mg tablet 00:00: mouth [place] 00 every Medical morning. Branch cyclobenzap Yes [id number] 10mg Take 1 Univers rine 10 mg 7-12 tablet by ity of tablet 00:00: mouth 2 00 (two) Medical times Branch daily. naproxen 2020-0 Yes [id number] 500mg Take 1 U nivers 500 mg 7-12 tablet by ity of tablet 00:00: mouth 2 (two) Medical times Branch daily with meals. lisinopriL 2020-0 Yes [id number] 20mg Take 1 Un jimmy 20 mg 7-12 tablet by ity of tablet 00:00: mouth [place] 00 daily. Medical Branch busPIRone 2020-0 Yes [id number] 15mg Take 1 Un jimmy 15 mg 7-12 tablet by ity of tablet 00:00: mouth 3 00 (three) Medical times Branch daily. buPROPion 2020-0 Yes [id number] 300mg Take 1 U nivers XL 300 mg 7-12 tablet by ity o f 24 hr 00:00: mouth [place] tablet 00 daily. Medical Branch ARIPiprazol 2020-0 Yes [id number] 10mg Take 1 Univers e 10 mg 7-12 tablet by ity of tablet 00:00: mouth [place] 00 daily. Medical Branch PARoxetine 2020-0 Yes [id number] 40mg Take 1 U nivers mesylate 40 7-12 tablet by ity of mg tablet 00:00: mouth [place] 00 every Medical morning. Branch cyclobenzap 0 Yes [id number] 10mg Take 1 Univers rine 10 mg 7-12 tablet by ity of tablet 00:00: mouth 2 (two) Medical times Branch daily. naproxen 2020-0 Yes [id number] 500mg Take 1 U nivers 500 mg 7-12 tablet by ity of tablet 00:00: mouth 2 (two) Medical times Branch daily with meals. lisinopriL 2020-0 Yes [id number] 20mg Take 1 Un jimmy 20 mg 7-12 tablet by ity of tablet 00:00: mouth [place] 00 daily. Medical Branch busPIRone 2020-0 Yes [id number] 15mg Take 1 Un jimmy 15 mg 7-12 tablet by ity of tablet 00:00: mouth 3 00 (three) Medical times Branch daily. buPROPion 2020-0 Yes [id number] 300mg Take 1 U nivers XL 300 mg 7-12 tablet by ity o f 24 hr 00:00: mouth [place] tablet 00 daily. Medical Branch ARIPiprazol 2020-0 Yes [id number] 10mg Take 1 Univers e 10 mg 7-12 tablet by ity of tablet 00:00: mouth [place] 00 daily. Medical Branch PARoxetine 2020-0 Yes [id number] 40mg Take 1 U nivers mesylate 40 7-12 tablet by ity of mg tablet 00:00: mouth [place] 00 every Medical morning. Branch cyclobenzap 2020-0 Yes [id number] 10mg Take 1 Univers rine 10 mg 7-12 tablet by ity of tablet 00:00: mouth 2 [place] 00 (two) Medical times Branch daily. naproxen 2020-0 Yes [id number] 500mg Take 1 U nivers 500 mg 7-12 tablet by ity of tablet 00:00: mouth 2 (two) Medical times Branch daily with meals. lisinopriL 2020-0 Yes [id number] 20mg Take 1 Un jimmy 20 mg 7-12 tablet by ity of tablet 00:00: mouth [place] 00 daily. Medical Branch busPIRone 2020-0 Yes [id number] 15mg Take 1 Un jimmy 15 mg 7-12 tablet by ity of tablet 00:00: mouth 3 00 (three) Medical times Branch daily. buPROPion 2020-0 Yes [id number] 300mg Take 1 U nivers XL 300 mg 7-12 tablet by ity o f 24 hr 00:00: mouth [place] tablet 00 daily. Medical Branch ARIPiprazol 2020-0 Yes [id number] 10mg Take 1 Univers e 10 mg 7-12 tablet by ity of tablet 00:00: mouth [place] 00 daily. Medical Branch PARoxetine 2020-0 Yes [id number] 40mg Take 1 U nivers mesylate 40 7-12 tablet by ity of mg tablet 00:00: mouth [place] 00 every Medical morning. Branch cyclobenzap 2020-0 Yes [id number] 10mg Take 1 Univers rine 10 mg 7-12 tablet by ity of tablet 00:00: mouth 2 [place] 00 (two) Medical times Branch daily. naproxen 2020-0 Yes [id number] 500mg Take 1 U nivers 500 mg 7-12 tablet by ity of tablet 00:00: mouth 2 [place] 00 (two) Medical times Branch daily with meals. lisinopriL 2020-0 Yes [id number] 20mg Take 1 Un jimmy 20 mg 7-12 tablet by ity of tablet 00:00: mouth [place] 00 daily. Medical Branch busPIRone 2020-0 Yes [id number] 15mg Take 1 Un jimmy 15 mg 7-12 tablet by ity of tablet 00:00: mouth 3 [place] 00 (three) Medical times Branch daily. buPROPion 2020-0 Yes [id number] 300mg Take 1 U nivers XL 300 mg 7-12 tablet by ity o f 24 hr 00:00: mouth [place] tablet 00 daily. Medical Branch ARIPiprazol 0 Yes [id number] 10mg Take 1 [facility] e 10 mg 7-12 tablet by [facility] of tablet 00:00: mouth [place] 00 daily. Medical Branch PARoxetine Yes [id number] 40mg Take 1 [facility] n[facility] mesylate 40 7-12 tablet by ity of mg tablet 00:00: mouth [place] 00 every Medical morning. Branch cyclobenzap 0 Yes [id number] 10mg Take 1 [facility] rine 10 mg 7-12 tablet by ity of tablet 00:00: mouth 2 [place] 00 (two) Medical times Branch daily. naproxen 2020-0 Yes [id number] 500mg Take 1 [facility] nivers 500 mg 7-12 tablet by ity of tablet 00:00: mouth 2 [place] 00 (two) Medical times Branch daily with meals. lisinopriL 0 Yes [id number] 20mg Take 1 [facility] jimmy 20 mg 7-12 tablet by ity of tablet 00:00: mouth [place] 00 daily. Medical Branch busPIRone 0 Yes [id number] 15mg Take 1 [facility] jimmy 15 mg 7-12 tablet by ity of tablet 00:00: mouth 3 [place] 00 (three) Medical times Branch daily. buPROPion 2020-0 Yes [id number] 300mg Take 1 [facility] nivers XL 300 mg 7-12 tablet by ity o f 24 hr 00:00: mouth [place] tablet 00 daily. Medical Branch ARIPiprazol 2020-0 Yes [id number] 10mg Take 1 [facility] e 10 mg 7-12 tablet by ity of tablet 00:00: mouth [place] 00 daily. Medical Branch PARoxetine 2020-0 Yes [id number] 40mg Take 1 [facility] nivers mesylate 40 7-12 tablet by ity of mg tablet 00:00: mouth [place] 00 every Medical morning. Branch cyclobenzap Yes [id number] 10mg Take 1 [facility] rine 10 mg 7-12 tablet by ity of tablet 00:00: mouth 2 (two) Medical times Branch daily. naproxen Yes [id number] 500mg Take 1 [facility] nivers 500 mg 7-12 tablet by ity of tablet 00:00: mouth 2 (two) Medical times Branch daily with meals. lisinopriL Yes [id number] 20mg Take 1 [facility] jimmy 20 mg 7-12 tablet by ity of tablet 00:00: mouth 00 daily. 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 [facility] [place] Insulin Yes [id number] Use as [facility] Mcdonald, 6 directed ity of Disposable, 00:00: [place] (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 Medical PEN NEEDLE) Branch 31 gauge x 1/4" Ndle lancets Yes [id number] Use as [facility] ers (INCONTROL 10-02 directed ity o f SUPER THIN 00:00: [place] LANCETS) 30 00 Medical gauge [facility] Lancing 0 Yes [id number] Use as [facility] Device 6 directed ity of (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 [facility] [place] Insulin Yes [id number] Use as [facility] Mcdonald, 6- directed ity of Disposable, 00:00: [place] (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 Medical PEN NEEDLE) Branch 31 gauge x 1/4" Ndle lancets 0 Yes [id number] Use as [facility] ers (INCONTROL 10-02 directed ity o f SUPER THIN 00:00: [place] LANCETS) 30 00 Medical gauge Misc Branch Lancing 0 Yes [id number] Use as [facility] ers Device - directed ity of (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 Misc Insulin 0 Yes [id number] Use as [facility] ers Mcdonald, 10-02 directed ity of Disposable, 00:00: [place] (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 Medical PEN NEEDLE) Branch 31 gauge x 1/4" Ndle lancets 0 Yes [id number] Use as [facility] ers (INCONTROL 10-02 directed ity o f SUPER THIN 00:00: [place] LANCETS) 30 00 Medical gauge Misc Branch Lancing 0 Yes [id number] Use as [facility] ers Device 10-02 directed ity of (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 [facility] [place] Insulin 0 Yes [id number] Use as [facility] Mcdonald, 10-02 directed ity of Disposable, 00:00: [place] (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 Medical PEN NEEDLE) Branch 31 gauge x 1/4" Ndle lancets 0 Yes [id number] Use as [facility] ers (INCONTROL 10-02 directed ity o f SUPER THIN 00:00: [place] LANCETS) 30 00 Medical gauge Misc Branch Lancing 0 Yes [id number] Use as [facility] ers Device 10-02 directed ity of (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 [facility] [place] Insulin 0 Yes [id number] Use as [facility] ers Mcdonald, 10-02 directed ity of Disposable, 00:00: [place] (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 Medical PEN NEEDLE) Branch 31 gauge x 1/4" Ndle lancets 0 Yes [id number] Use as [facility] ers (INCONTROL 10-02 directed ity o f SUPER THIN 00:00: [place] LANCETS) 30 00 Medical gauge Misc Branch Lancing 0 Yes [id number] Use as [facility] ers Device 10-02 directed ity of (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 Mis Insulin 0 Yes [id number] Use as [facility] ers Mcdonald, 10-02 directed ity of Disposable, 00:00: [place] (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 Medical PEN NEEDLE) Branch 31 gauge x 1/4" Ndle lancets 0 Yes [id number] Use as Univ ers (INCONTROL 6-28 directed ity o f SUPER THIN 00:00: [place] LANCETS) 30 00 Medical gauge Misc Branch Lancing 2020-0 Yes [id number] Use as [facility] ers Device 6- directed ity of (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 Misc Insulin 0 Yes [id number] Use as [facility] ers Mcdonald, 6- directed ity of Disposable, 00:00: [place] (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 Medical PEN NEEDLE) Branch 31 gauge x 1/4" Ndle lancets 0 Yes [id number] Use as Univ ers (INCONTROL 10-02 directed ity o f SUPER THIN 00:00: [place] LANCETS) 30 00 Medical gauge Misc Branch Lancing 0 Yes [id number] Use as [facility] ers Device 10-02 directed ity of (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 Misc Insulin 0 Yes [id number] Use as [facility] ers Mcdonald, 10-02 directed ity of Disposable, 00:00: [place] (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 Medical PEN NEEDLE) Branch 31 gauge x 1/4" Ndle lancets 0 Yes [id number] Use as Univ ers (INCONTROL 10-02 directed ity o f SUPER THIN 00:00: [place] LANCETS) 30 00 Medical gauge Misc Branch Lancing 0 Yes [id number] Use as [facility] ers Device 10-02 directed ity of (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 Misc Insulin 0 Yes [id number] Use as [facility] ers Mcdonald, 6- directed ity of Disposable, 00:00: [place] (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 Medical PEN NEEDLE) Branch 31 gauge x 1/4" Ndle lancets 0 Yes [id number] Use as Univ ers (INCONTROL 10-02 directed ity o f SUPER THIN 00:00: [place] LANCETS) 30 00 Medical gauge Misc Branch Lancing 2020-0 Yes [id number] Use as Univ ers Device - directed ity of (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 Misc Insulin 0 Yes [id number] Use as [facility] ers Mcdonald, 6- directed ity of Disposable, 00:00: [place] (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 Medical PEN NEEDLE) Branch 31 gauge x 1/4" Ndle lancets 0 Yes [id number] Use as Univ ers (INCONTROL 6-28 directed ity o f SUPER THIN 00:00: [place] LANCETS) 30 00 Medical gauge Misc Branch Lancing 0 Yes [id number] Use as Univ ers Device 6-28 directed ity of (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 Misc Insulin 0 Yes [id number] Use as [facility] ers Mcdonald, 6- directed ity of Disposable, 00:00: [place] (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 Medical PEN NEEDLE) Branch 31 gauge x 1/4" Ndle lancets 0 Yes [id number] Use as Univ ers (INCONTROL 6- directed ity o f SUPER THIN 00:00: [place] LANCETS) 30 00 Medical gauge Misc Branch Lancing 0 Yes [id number] Use as Univ ers Device 6- directed ity of (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 Misc Insulin 0 Yes [id number] Use as [facility] ers Mcdonald, 6- directed ity of Disposable, 00:00: [place] (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 Medical PEN NEEDLE) Branch 31 gauge x 1/4" Ndle lancets 0 Yes [id number] Use as Univ ers (INCONTROL 6- directed ity o f SUPER THIN 00:00: [place] LANCETS) 30 00 Medical gauge Misc Branch Lancing 0 Yes [id number] Use as Univ ers Device 6- directed ity of (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 Misc Insulin 0 Yes [id number] Use as [facility] ers Mcdonald, 6-28 directed ity of Disposable, 00:00: [place] (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 Medical PEN NEEDLE) Branch 31 gauge x 1/4" Ndle lancets 0 Yes [id number] Use as Univ ers (INCONTROL 6-28 directed ity o f SUPER THIN 00:00: [place] LANCETS) 30 00 Medical gauge Misc Branch Lancing 0 Yes [id number] Use as Univ ers Device 6-28 directed ity of (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 Misc Insulin 0 Yes [id number] Use as [facility] ers Mcdonald, 6-28 directed ity of Disposable, 00:00: [place] (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 Medical PEN NEEDLE) Branch 31 gauge x 1/4" Ndle lancets 2020-0 Yes [id number] Use as Univ ers (INCONTROL 6-28 directed ity o f SUPER THIN 00:00: [place] LANCETS) 30 00 Medical gauge Misc Branch Lancing 2020-0 Yes [id number] Use as Univ ers Device 6-28 directed ity of (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 Misc Insulin 2020-0 Yes [id number] Use as [facility] ers Mcdonald, 6-28 directed ity of Disposable, 00:00: [place] (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 Medical PEN NEEDLE) Branch 31 gauge x 1/4" Ndle lancets 0 Yes [id number] Use as Univ ers (INCONTROL 6-28 directed ity o f SUPER THIN 00:00: [place] LANCETS) 30 00 Medical gauge Misc Branch Lancing 2020-0 Yes [id number] Use as Univ ers Device 6-28 directed ity of (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 Misc blood sugar Yes Use as Univ ers diagnostic 6-25 directed, ity of (TRUE 00:00: once a day [place] METRIX 00 to monitor Medical GLUCOSE blood Branch TEST STRIP) glucose strip for ICD code E11.9 blood sugar 2020- Yes Use as Univ ers diagnostic 6-25 directed, ity of (TRUE 00:00: once a day [place] METRI[employer] 00 to monitor Medical GLUCOSE blood Branch TEST STRIP) glucose strip for ICD code E11.9 blood sugar 2020-0 Yes Use as Univ ers diagnostic 6-25 directed, ity of (TRUE 00:00: once a day [place] MET[employer] 00 to monitor Medical GLUCOSE blood Branch TEST STRIP) glucose strip for ICD code E11.9 blood sugar 2020-0 Yes Use as Univ ers diagnostic 6-25 directed, ity of (TRUE 00:00: once a day [place] MET[employer] 00 to monitor Medical GLUCOSE blood Branch TEST STRIP) glucose strip for ICD code E11.9 blood sugar 2020- Yes Use as Univ ers diagnostic 6-25 directed, ity of (TRUE 00:00: once a day [place] MET[employer] 00 to monitor Medical GLUCOSE blood Branch TEST STRIP) glucose strip for ICD code E11.9 blood sugar 2020-0 Yes Use as Univ ers diagnostic 6-25 directed, ity of (TRUE 00:00: once a day [place] MET[employer] 00 to monitor Medical GLUCOSE blood Branch TEST STRIP) glucose strip for ICD code E11.9 blood sugar 2020-0 Yes Use as Univ ers diagnostic 6-25 directed, ity of (TRUE 00:00: once a day [place] METRIX 00 to monitor Medical GLUCOSE blood Branch TEST STRIP) glucose strip for ICD code E11.9 blood sugar 2020-0 Yes Use as Univ ers diagnostic 6-25 directed, ity of (TRUE 00:00: once a day [place] MET[employer] 00 to monitor Medical GLUCOSE blood Branch TEST STRIP) glucose strip for ICD code E11.9 blood sugar 2020-0 Yes Use as Univ ers diagnostic 6-25 directed, ity of (TRUE 00:00: once a day [place] METRIX 00 to monitor Medical GLUCOSE blood Branch TEST STRIP) glucose strip for ICD code E11.9 blood sugar 2020-0 Yes Use as Univ ers diagnostic 6-25 directed, ity of (TRUE 00:00: once a day [place] METRIX 00 to monitor Medical GLUCOSE blood Branch TEST STRIP) glucose strip for ICD code E11.9 blood sugar 2020-0 Yes Use as Univ ers diagnostic 6-25 directed, ity of (TRUE 00:00: once a day [place] METRIX 00 to monitor Medical GLUCOSE blood Branch TEST STRIP) glucose strip for ICD code E11.9 blood sugar 2020-0 Yes Use as [facility] ers diagnostic 6-25 directed, ity of (TRUE 00:00: once a day [place] METRIX 00 to monitor Medical GLUCOSE blood Branch TEST STRIP) glucose strip for ICD code E11.9 blood sugar 2020-0 Yes Use as [facility] ers diagnostic 6-25 directed, ity of (TRUE 00:00: once a day [place] METRIX 00 to monitor Medical GLUCOSE blood Branch TEST STRIP) glucose strip for ICD code E11.9 blood sugar 2020-0 Yes Use as Univ ers diagnostic 6-25 directed, ity of (TRUE 00:00: once a day [place] METRIX 00 to monitor Medical GLUCOSE blood Branch TEST STRIP) glucose strip for ICD code E11.9 blood sugar 2020-0 Yes Use as Univ ers diagnostic 6-25 directed, ity of (TRUE 00:00: once a day [place] METRIX 00 to monitor Medical GLUCOSE blood Branch TEST STRIP) glucose strip for ICD code E11.9 potassium 2020-0 Yes [id number] 10meq Take 1 U nivers chloride 10 6-23 tablet by ity of mEq CR 00:00: mouth [place] tablet 00 every Medical Friday, Branch and Friday in the evening. potassium 2020-0 Yes [id number] 10meq Take 1 U nivers chloride 10 6-23 tablet by ity of mEq CR 00:00: mouth [place] tablet 00 every Medical Friday, Branch and Friday in the evening. potassium 2020-0 Yes [id number] 10meq Take 1 U nivers chloride 10 6-23 tablet by ity of mEq CR 00:00: mouth [place] tablet 00 every Medical Friday, Branch and Friday in the evening. potassium 0 Yes [id number] 10meq Take 1 U nivers chloride 10 6-23 tablet by ity of mEq CR 00:00: mouth [place] tablet 00 every Medical Friday, Branch and Friday in the evening. potassium 0 Yes [id number] 10meq Take 1 U nivers chloride 10 6-23 tablet by ity of mEq CR 00:00: mouth [place] tablet 00 every Medical Friday, Branch and Friday in the evening. potassium 0 Yes [id number] 10meq Take 1 U nivers chloride 10 6-23 tablet by ity of mEq CR 00:00: mouth [place] tablet 00 every Medical Friday, Branch and Friday in the evening. potassium 0 Yes [id number] 10meq Take 1 U nivers chloride 10 6-23 tablet by ity of mEq CR 00:00: mouth [place] tablet 00 every Medical Friday, Branch and Friday in the evening. potassium 0 Yes [id number] 10meq Take 1 U nivers chloride 10 6-23 tablet by ity of mEq CR 00:00: mouth [place] tablet 00 every Medical Friday, Branch and Friday in the evening. potassium 2020-0 Yes [id number] 10meq Take 1 U nivers chloride 10 6-23 tablet by ity of mEq CR 00:00: mouth [place] tablet 00 every Medical Friday, Branch and Friday in the evening. potassium 0 Yes [id number] 10meq Take 1 U nivers chloride 10 6-23 tablet by ity of mEq CR 00:00: mouth [place] tablet 00 every Medical Friday, Branch and Friday in the evening. potassium Yes [id number] 10meq Take 1 U nivers chloride 10 6-23 tablet by ity of mEq CR 00:00: mouth [place] tablet 00 every Medical Friday, Branch and Friday in the evening. potassium Yes [id number] 10meq Take 1 U nivers chloride 10 6-23 tablet by ity of mEq CR 00:00: mouth [place] tablet 00 every Medical Friday, Branch and Friday in the evening. potassium Yes [id number] 10meq Take 1 U nivers chloride 10 6-23 tablet by ity of mEq CR 00:00: mouth [place] tablet 00 every Medical Friday, Branch and Friday in the evening. potassium Yes [id number] 10meq Take 1 U nivers chloride 10 6-23 tablet by ity of mEq CR 00:00: mouth [place] tablet 00 every Medical Friday, Branch and Friday in the evening. potassium Yes [id number] 10meq Take 1 U nivers chloride 10 6-23 tablet by ity of mEq CR 00:00: mouth [place] tablet 00 every Medical Friday, Branch and Friday in the evening. potassium Yes [id number] 10meq Take 1 U nivers chloride 10 6-23 tablet by ity of mEq CR 00:00: mouth [place] tablet 00 every Medical Friday, Branch and Friday in the evening. potassium Yes [id number] 10meq Take 1 U nivers chloride 10 6-23 tablet by ity of mEq CR 00:00: mouth [place] tablet 00 every Medical Friday, Branch and Friday in the evening. Insulin Yes [id number] Use as Uni vers Mcdonald, 6-22 directed ity of Disposable, 00:00: [place] (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 Medical PEN NEEDLE) Branch 31 gauge x 1/4" Ndle B Complex Yes [id number] 1{tbl} Take 1 [facility] Vitamins 6-22 tablet by ity of (B-COMPLEX) 00:00: mouth [place] tablet 00 daily. Medical Branch Insulin Yes [id number] Use as [facility] vers Mcdonald, 6- directed ity of Disposable, 00:00: [place] (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 Medical PEN NEEDLE) Branch 31 gauge x 1/4" Ndle B Complex Yes [id number] 1{tbl} Take 1 [facility] Vitamins 6-22 tablet by ity of (B-COMPLEX) 00:00: mouth [place] tablet 00 daily. Medical Branch Insulin Yes [id number] Use as Univ ers Mcdonald, 6- directed ity of Disposable, 00:00: [place] (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 Medical PEN NEEDLE) Branch 31 gauge x 1/4" Ndle pregabalin Yes [id number] 150mg Take 1 [facility] 150 mg 6-22 capsule by ity of capsule 00:00: mouth 3 [place] 00 (three) Medical times Branch daily. 1 pill bid for a week. If pain not better than 2 pills bid. B Complex Yes [id number] 1{tbl} Take 1 [facility] Vitamins 6-22 tablet by ity of (B-COMPLEX) 00:00: mouth [place] tablet 00 daily. Medical Branch Insulin Yes [id number] Use as Univ ers Mcdonald, 6- directed ity of Disposable, 00:00: [place] (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 Medical PEN NEEDLE) Branch 31 gauge x 1/4" Ndle pregabalin Yes [id number] 150mg Take 1 [facility] 150 mg 6-22 capsule by ity of capsule 00:00: mouth 3 [place] 00 (three) Medical times Branch daily. 1 pill bid for a week. If pain not better than 2 pills bid. B Complex Yes [id number] 1{tbl} Take 1 [facility] Vitamins 6-22 tablet by ity of (B-COMPLEX) 00:00: mouth [place] tablet 00 daily. Medical Branch Insulin Yes [id number] Use as [facility] ers Mcdonald, 6- directed ity of Disposable, 00:00: [place] (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 Medical PEN NEEDLE) Branch 31 gauge x 1/4" Ndle pregabalin Yes [id number] 150mg Take 1 [facility] 150 mg 6-22 capsule by ity of capsule 00:00: mouth 3 [place] 00 (three) Medical times Branch daily. 1 pill bid for a week. If pain not better than 2 pills bid. B Complex Yes [id number] 1{tbl} Take 1 [facility] Vitamins 6-22 tablet by ity of (B-COMPLEX) 00:00: mouth [place] tablet 00 daily. Medical Branch Insulin Yes [id number] Use as [facility] ers Mcdonald, 6-22 directed ity of Disposable, 00:00: [place] (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 Medical PEN NEEDLE) Branch 31 gauge x 1/4" Ndle B Complex Yes [id number] 1{tbl} Take 1 [facility] Vitamins 6-22 tablet by ity of (B-COMPLEX) 00:00: mouth [place] tablet 00 daily. Medical Branch Insulin Yes [id number] Use as [facility] ers Mcdonald, 6- directed ity of Disposable, 00:00: [place] (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 Medical PEN NEEDLE) Branch 31 gauge x 1/4" Ndle pregabalin Yes [id number] 150mg Take 1 [facility] 150 mg 6-22 capsule by ity of capsule 00:00: mouth 3 (three) Medical times Branch daily. 1 pill bid for a week. If pain not better than 2 pills bid. busPIRone 5 Yes [id number] 5mg Take 1 [facility] mg tablet 6-22 tablet by ity o f 00:00: mouth 2 (two) Medical times Branch daily as needed (Anxiety/D epression) . cyclobenzap Yes [id number] 5mg Take 1 [facility] rine 5 mg 6-22 tablet by ity o f tablet 00:00: mouth 3 00 (three) Medical times Branch daily. B Complex Yes [id number] 1{tbl} Take 1 [facility] Vitamins 6-22 tablet by ity of (B-COMPLEX) 00:00: mouth [place] tablet 00 daily. Medical Branch Insulin Yes [id number] Use as Univ ers Mcdonald, 6-22 directed ity of Disposable, 00:00: [place] (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 Medical PEN NEEDLE) Branch 31 gauge x 1/4" Ndle pregabalin Yes [id number] 150mg Take 1 [facility] 150 mg 6-22 capsule by ity of capsule 00:00: mouth 3 00 (three) Medical times Branch daily. 1 pill bid for a week. If pain not better than 2 pills bid. busPIRone 5 Yes [id number] 5mg Take 1 [facility] mg tablet 6-22 tablet by ity o f 00:00: mouth 2 [place] 00 (two) Medical times Branch daily as needed (Anxiety/D epression) . cyclobenzap Yes [id number] 5mg Take 1 [facility] rine 5 mg 6-22 tablet by ity o f tablet 00:00: mouth 3 [place] 00 (three) Medical times Branch daily. B Complex Yes [id number] 1{tbl} Take 1 [facility] Vitamins 6-22 tablet by ity of (B-COMPLEX) 00:00: mouth [place] tablet 00 daily. Medical Branch Insulin Yes [id number] Use as [facility] ers Mcdonald, 6-22 directed ity of Disposable, 00:00: [place] (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 Medical PEN NEEDLE) Branch 31 gauge x 1/4" Ndle pregabalin Yes [id number] 150mg Take 1 [facility] 150 mg 6-22 capsule by ity of capsule 00:00: mouth 3 (three) Medical times Branch daily. 1 pill bid for a week. If pain not better than 2 pills bid. busPIRone 5 Yes [id number] 5mg Take 1 [facility] mg tablet 6-22 tablet by ity o f 00:00: mouth 2 00 (two) Medical times Branch daily as needed (Anxiety/D epression) . cyclobenzap Yes [id number] 5mg Take 1 [facility] rine 5 mg 6-22 tablet by ity o f tablet 00:00: mouth 3 [place] 00 (three) Medical times Branch daily. B Complex Yes [id number] 1{tbl} Take 1 [facility] Vitamins 6-22 tablet by ity of (B-COMPLEX) 00:00: mouth [place] tablet 00 daily. Medical Branch Insulin Yes [id number] Use as [facility] ers Mcdonald, 6-22 directed ity of Disposable, 00:00: [place] (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 Medical PEN NEEDLE) Branch 31 gauge x 1/4" Ndle pregabalin Yes [id number] 150mg Take 1 [facility] 150 mg 6-22 capsule by ity of capsule 00:00: mouth 3 (three) Medical times Branch daily. 1 pill bid for a week. If pain not better than 2 pills bid. busPIRone 5 Yes [id number] 5mg Take 1 [facility] mg tablet 6-22 tablet by ity o f 00:00: mouth 2 (two) Medical times Branch daily as needed (Anxiety/D epression) . cyclobenzap Yes [id number] 5mg Take 1 [facility] rine 5 mg 6-22 tablet by ity o f tablet 00:00: mouth 3 (three) Medical times Branch daily. B Complex Yes [id number] 1{tbl} Take 1 [facility] Vitamins 6-22 tablet by ity of (B-COMPLEX) 00:00: mouth [place] tablet 00 daily. Medical Branch Insulin Yes [id number] Use as [facility] ers Mcdonald, 6 directed ity of Disposable, 00:00: [place] (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 Medical PEN NEEDLE) Branch 31 gauge x 1/4" Ndle pregabalin Yes [id number] 150mg Take 1 [facility] 150 mg 6-22 capsule by ity of capsule 00:00: mouth 3 (three) Medical times Branch daily. 1 pill bid for a week. If pain not better than 2 pills bid. B Complex Yes [id number] 1{tbl} Take 1 [facility] Vitamins 6-22 tablet by ity of (B-COMPLEX) 00:00: mouth [place] tablet 00 daily. Medical Branch Insulin Yes [id number] Use as [facility] ers Mcdonald, 6- directed ity of Disposable, 00:00: [place] (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 Medical PEN NEEDLE) Branch 31 gauge x 1/4" Ndle pregabalin Yes [id number] 150mg Take 1 [facility] 150 mg 6-22 capsule by ity of capsule 00:00: mouth 3 (three) Medical times Branch daily. 1 pill bid for a week. If pain not better than 2 pills bid. B Complex Yes [id number] 1{tbl} Take 1 [facility] Vitamins 6-22 tablet by ity of (B-COMPLEX) 00:00: mouth [place] tablet 00 daily. Medical Branch Insulin Yes [id number] Use as [facility] ers Mcdonald, 6-22 directed ity of Disposable, 00:00: [place] (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 Medical PEN NEEDLE) Branch 31 gauge x 1/4" Ndle pregabalin Yes [id number] 150mg Take 1 [facility] 150 mg 6-22 capsule by ity of capsule 00:00: mouth 3 (three) Medical times Branch daily. 1 pill bid for a week. If pain not better than 2 pills bid. B Complex Yes [id number] 1{tbl} Take 1 [facility] Vitamins 6-22 tablet by ity of (B-COMPLEX) 00:00: mouth [place] tablet 00 daily. Medical Branch Insulin Yes [id number] Use as [facility] ers Mcdonald, 6- directed ity of Disposable, 00:00: [place] (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 Medical PEN NEEDLE) Branch 31 gauge x 1/4" Ndle pregabalin Yes [id number] 150mg Take 1 [facility] 150 mg 6-22 capsule by ity of capsule 00:00: mouth 3 (three) Medical times Branch daily. 1 pill bid for a week. If pain not better than 2 pills bid. B Complex Yes [id number] 1{tbl} Take 1 [facility] Vitamins 6-22 tablet by ity of (B-COMPLEX) 00:00: mouth [place] tablet 00 daily. Medical Branch Insulin Yes [id number] Use as [facility] ers Mcdonald, 6- directed ity of Disposable, 00:00: [place] (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 Medical PEN NEEDLE) Branch 31 gauge x 1/4" Ndle pregabalin Yes [id number] 150mg Take 1 [facility] 150 mg 6-22 capsule by ity of capsule 00:00: mouth 3 (three) Medical times Branch daily. 1 pill bid for a week. If pain not better than 2 pills bid. B Complex Yes [id number] 1{tbl} Take 1 [facility] Vitamins 6-22 tablet by ity of (B-COMPLEX) 00:00: mouth [place] tablet 00 daily. Medical Branch Insulin Yes [id number] Use as [facility] ers Mcdonald, 6-22 directed ity of Disposable, 00:00: [place] (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 Medical PEN NEEDLE) Branch 31 gauge x 1/4" Ndle pregabalin Yes [id number] 150mg Take 1 [facility] 150 mg 6-22 capsule by ity of capsule 00:00: mouth 3 (three) Medical times Branch daily. 1 pill bid for a week. If pain not better than 2 pills bid. B Complex Yes [id number] 1{tbl} Take 1 [facility] Vitamins 6-22 tablet by ity of (B-COMPLEX) 00:00: mouth [place] tablet 00 daily. Medical Branch Insulin Yes [id number] Use as Univ ers Mcdonald, 6-22 directed ity of Disposable, 00:00: [place] (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 Medical PEN NEEDLE) Branch 31 gauge x 1/4" Ndle B Complex Yes [id number] 1{tbl} Take 1 [facility] Vitamins 6-22 tablet by ity of (B-COMPLEX) 00:00: mouth [place] tablet 00 daily. Medical Branch pregabalin 2020- No [id number] 150mg Take 1 [facility] 150 mg 6-22 09-20 capsule by ity of capsule 00:00: 00:00 mouth 3 [place] 00 :00 (three) Medical times Branch daily. 1 pill bid for a week. If pain not better than 2 pills bid. pregabalin No [id number] 150mg Take 1 [facility] 150 mg 6-22 09-20 capsule by ity of capsule 00:00: 00:00 mouth 3 [place] 00 :00 (three) Medical times Branch daily. 1 pill bid for a week. If pain not better than 2 pills bid. busPIRone 5 2020- No [id number] 5mg Take 1 [facility] mg tablet 6- 07-12 tablet by ity of 00:00: 00:00 mouth 2 [place] 00 :00 (two) Medical times Branch daily as needed (Anxiety/D epression) . cyclobenzap 2020- No [id number] 5mg Take 1 [facility] rine 5 mg 6- 07-12 tablet by ity of tablet 00:00: 00:00 mouth 3 [place] 00 :00 (three) Medical times Branch daily. lisinopril- 2020- No 1{tbl} Take 1 U nivers hydrochloro 6-14 06-10 tablet by it y of thiazide 04:36: 00:00 mouth [place] 20-12.5 mg 41 :00 daily. Medical per tablet Branch blood sugar Yes [id number] Use TID, [facility] diagnostic 6-13 DX E11.9 ity o f (FREESTYLE 00:00: (Brand [place] LITE 00 upon Medical STRIPS) insurance Branch strip approval) Insulin Yes [id number] Use TID, Un jimmy Mcdonald, 6-13 DX E11.9 ity of Disposable, 00:00: ([place] ([place] INSULIN 00 upon Medical PEN NEEDLE insurance [facility]) 31 approval) gauge x 5/16" Ndle lisinopriL- Yes [id number] 1{tbl} Take 1 [facility] hydrochloro 6-13 tablet by ity of thiazide 00:00: mouth [place] 20-12.5 mg 00 daily. Medical per tablet Branch blood sugar Yes [id number] Use TID, [facility] diagnostic 6-13 DX E11.9 ity o f (FREESTYLE 00:00: (Brand [place] LITE 00 upon Medical STRIPS) insurance Branch strip approval) lisinopriL- Yes [id number] 1{tbl} Take 1 [facility] hydrochloro 6-13 tablet by ity of thiazide 00:00: mouth [place] 20-12.5 mg 00 daily. Medical per tablet Branch blood sugar Yes [id number] Use TID, [facility] diagnostic 6-13 DX E11.9 ity o f (FREESTYLE 00:00: (Brand [place] LITE 00 upon Medical STRIPS) insurance Branch strip approval) lisinopriL- Yes [id number] 1{tbl} Take 1 [facility] hydrochloro 6-13 tablet by ity of thiazide 00:00: mouth [place] 20-12.5 mg 00 daily. Medical per tablet Branch blood sugar Yes [id number] Use TID, [facility] diagnostic 6-13 DX E11.9 ity o f (FREESTYLE 00:00: (Brand [place] LITE 00 upon Medical STRIPS) insurance Branch strip approval) lisinopriL- Yes [id number] 1{tbl} Take 1 [facility] hydrochloro 6-13 tablet by ity of thiazide 00:00: mouth [place] 20-12.5 mg 00 daily. Medical per tablet Branch lisinopriL- Yes [id number] 1{tbl} Take 1 [facility] hydrochloro 6-13 tablet by ity of thiazide 00:00: mouth [place] 20-12.5 mg 00 daily. Medical per tablet Branch lisinopriL- Yes [id number] 1{tbl} Take 1 [facility] hydrochloro 6-13 tablet by ity of thiazide 00:00: mouth [place] 20-12.5 mg 00 daily. Medical per tablet Branch lisinopriL- Yes [id number] 1{tbl} Take 1 [facility] hydrochloro 6-13 tablet by ity of thiazide 00:00: mouth [place] 20-12.5 mg 00 daily. Medical per tablet Branch lisinopriL- Yes [id number] 1{tbl} Take 1 [facility] hydrochloro 6-13 tablet by ity of thiazide 00:00: mouth [place] 20-12.5 mg 00 daily. Medical per tablet Branch lisinopriL- 2020- No [id number] 1{tbl} Take 1 [facility] hydrochloro 6-13 07-12 tablet by it y of thiazide 00:00: 00:00 mouth [place] 20-12.5 mg 00 :00 daily. Medical per tablet Branch blood sugar 2020- No [id number] Use TID, [facility] diagnostic 09-17 DX E11.9 ity of (FREESTYLE 00:00: 00:00 ([place] LITE 00 :00 upon Medical STRIPS) insurance Branch strip approval) blood sugar 2020- No [id number] Use TID, [facility] diagnostic 09-17 DX E11.9 ity of (FREESTYLE 00:00: 00:00 ([place] L[place] 00 :00 upon Medical STRIPS) insurance Branch strip approval) blood sugar 2020- No [id number] Use TID, [facility] diagnostic 09-17 DX E11.9 ity of (FREESTYLE 00:00: 00:00 ([place] LITE 00 :00 upon Medical STRIPS) insurance Branch strip approval) Insulin 2020- No [id number] Use TID, U nivers Mcdonald, 09-17 DX E11.9 ity of Disposable, 00:00: 00:00 (Brand [place] (BD INSULIN 00 :00 upon Medical PEN NEEDLE insurance [facility] UF) 31 approval) gauge x 5/16" Ndle Insulin 2020- No [id number] Use TID, U nivers Mcdonald, 09-17 DX E11.9 ity of Disposable, 00:00: 00:00 (Brand [place] (BD INSULIN 00 :00 upon Medical PEN NEEDLE insurance [facility]) 31 approval) gauge x 5/16" Ndle Insulin 2020- No [id number] Use TID, U nivers Mcdonald, 09-17 DX E11.9 ity of Disposable, 00:00: 00:00 (Brand [place] (BD INSULIN 00 :00 upon Medical PEN NEEDLE insurance [facility]) 31 approval) gauge x 5/16" Ndle Insulin 2020- No [id number] Use TID, U nivers Mcdonald, 09-17 DX E11.9 ity of Disposable, 00:00: 00:00 (Brand [place] (BD INSULIN 00 :00 upon Medical PEN NEEDLE insurance [facility]) 31 approval) gauge x 5/16" Ndle Insulin 2020- No [id number] Use TID, U nivers Mcdonald, 09-17 DX E11.9 ity of Disposable, 00:00: 00:00 (Brand [place] (BD INSULIN 00 :00 upon Medical PEN NEEDLE insurance [facility]) 31 approval) gauge x 5/16" Ndle Insulin 2020- No [id number] Use TID, U nivers Mcdonald, 09-17 DX E11.9 ity of Disposable, 00:00: 00:00 (Brand [place] (BD INSULIN 00 :00 upon Medical PEN NEEDLE insurance [facility]) 31 approval) gauge x 5/16" Ndle HYDROcodone 2020-2020- No 1{tbl} Take 1 U nivers -acetaminop 6-08 06-08 tablet by it y of hen (NORCO) 20:01: 00:00 mouth [place] 10-325 mg 50 :00 every 8 Medical tablet (eight) Branch hours. HYDROcodone 2020- No 1{tbl} Take 1 U nivers -acetaminop 6-08 06-08 tablet by it y of hen (NORCO) 20:01: 00:00 mouth [place] 10-325 mg 50 :00 every 8 Medical tablet (eight) Branch hours. cloNIDine 2020-2020- No [id number] .2mg Un jimmy (CATAPRES) 09-12 ity of tablet 0.2 20:00: 07:59 [place] mg 00 :00 Medical Branch cloNIDine 2020-2020- No [id number] .2mg Un jimmy (CATAPRES) 09-12 ity of tablet 0.2 20:00: 07:59 [place] mg 00 :00 Medical Branch cloNIDine 2020-0 2020- No [id number] .2mg Un jimmy (CATAPRES) 09-12 ity of tablet 0.2 20:00: 07:59 [place] mg 00 :00 Medical Branch cloNIDine 2020-2020- No [id number] .2mg Un jimmy (CATAPRES) 09-12 ity of tablet 0.2 20:00: 07:59 [place] mg 00 :00 Medical Branch OXcarbazepi 2020- No 300mg Take 300 [facility] ne 300 mg 09-12-08 mg by ity of tablet 19:47: 00:00 mouth 2 [place] 46 :00 (two) Medical times Branch daily. ARIPiprazol 2020- No 10mg Take 10 mg Univers e 10 mg 09-12-08 by mouth ity of tablet 19:47: 00:00 daily. [place] 46 :00 Medical Branch OXcarbazepi 2020- No 300mg Take 300 [facility] ne 300 mg 09-12-08 mg by ity of tablet 19:47: 00:00 mouth 2 [place] 46 :00 (two) Medical times Branch daily. ARIPiprazol 2020- No 10mg Take 10 mg Univers e 10 mg 09-12-08 by mouth ity of tablet 19:47: 00:00 daily. [place] 46 :00 Medical Branch insulin 2020- No 45U inject 45 Univ ers glargine,hu - 06-08 Units ity of m.rec.anlog 19:28: 00:00 under the [place] ([place]) 22 :00 skin 2 Medica l (two) Branch times daily. insulin 2020- No 45U inject 45 Univ ers glargine,hu - 06-08 Units ity of m.rec.anlog 19:28: 00:00 under the [place] ([place]) 22 :00 skin 2 Medica l (two) Branch times daily. lancets Yes [id number] Use 3X Uni vers (FREESTYLE 6-08 daily. Dx ity of LANCETS) 28 00:00: Code E11.9 [place] gauge Misc 00 Medical Branch insulin Yes [id number] 60U inject 60 [facility] glargine 6-08 Units ity of U-300 conc 00:00: [place] MAX 00 skin 2 Medica l U-300 (two) Branch SOLOSTAR) times 300 unit/mL daily (3 mL) InPn before breakfast and dinner. insulin Yes [id number] Blood Univ ers lispro 6-08 glucose < ity of (HUMALOG 00:00: 90: do not [place] as KWIKPEN 00 use Blood Medical INSULIN) glucose Branch 100 unit/mL 90-120, pen subtract 1 injector Unit, give 4 units Blood glucose 120-150 : GIVE 5 UNITS Blood glucose 150 - 180 add 1 unit, give 6 units Blood glucose 181 - 210 add 2 units, given 7 units Blood glucose 211 - 240 add 3 units, give 8 units Blood glucose 241 - 300 add 4 units, give 9 units Blood glucose > 300, add 5 Units. Given 10 units, recheck in 3 hours. If blood glucose >300 seek medical attention Lancets Yes [id number] Use as Uni vers (ACCU-CHEK 6-08 directed, ity of FASTCLIX 00:00: DX:250.01, [place] as LANCING 00 six times Medical DEV) Misc per day. Branch hydrALAZINE Yes [id number] 10mg Take 1 [facility] 10 mg 6-08 tablet by ity of tablet 00:00: mouth 3 [place] 00 (three) Medical times Branch daily as needed (Take 1 Tablet TID PRN if BP >160/90). rosuvastati Yes [id number] 20mg Take 1 [facility] n 20 mg 6-08 tablet by ity of tablet 00:00: mouth at [place] 00 bedtime. Medical Branch nicotine 21 Yes [id number] 1{patch Apply 1 [facility] mg/24 hr 6-08 } Patch to ity of patch 00:00: area(s) [place] 00 daily. Medical Apply 21mg Branch patch daily x 6 weeks; then apply 14mf patch daily x 2 weeks; then apply 7mg patch daily x 2 weeks. Stop smoking on initiation of therapy nicotine 7 Yes [id number] 1{patch Apply 1 [facility] mg/24 hr 6-08 } Patch to ity of patch 00:00: area(s) [place] 00 every 24 Medical (twenty-fo Branch ur) hours. Apply 21mg patch daily x 6 weeks; then apply 14mf patch daily x 2 weeks; then apply 7mg patch daily x 2 weeks. Stop smoking on initiation of therapy nicotine 14 Yes [id number] 1{patch Apply 1 [facility] mg/24 hr 6-08 } Patch to ity of patch 00:00: area(s) [place] 00 every 24 Medical (twenty-fo Branch ur) hours. Apply 21mg patch daily x 6 weeks; then apply 14mf patch daily x 2 weeks; then apply 7mg patch daily x 2 weeks. Stop smoking on initiation of therapy lancets Yes [id number] Use 3X Uni vers (FREESTYLE 6-08 daily. Dx ity of LANCETS) 28 00:00: Code E11.9 [place] gauge Misc 00 Medical Branch insulin Yes [id number] 60U inject 60 [facility] glargine 6-08 Units ity of U-300 conc 00:00: under the [place] (TOUJE[place] MAX 00 skin 2 Medica l U-300 (two) Branch SOLOSTAR) times 300 unit/mL daily (3 mL) InPn before breakfast and dinner. insulin Yes [id number] Blood Univ ers lispro 6-08 glucose < ity of (HUMALOG 00:00: 90: do not [place] as KWIKPEN 00 use Blood Medical INSULIN) glucose Branch 100 unit/mL 90-120, pen subtract 1 injector Unit, give 4 units Blood glucose 120-150 : GIVE 5 UNITS Blood glucose 150 - 180 add 1 unit, give 6 units Blood glucose 181 - 210 add 2 units, given 7 units Blood glucose 211 - 240 add 3 units, give 8 units Blood glucose 241 - 300 add 4 units, give 9 units Blood glucose > 300, add 5 Units. Given 10 units, recheck in 3 hours. If blood glucose >300 seek medical attention Lancets Yes [id number] Use as Uni vers (ACCU-CHEK 6-08 directed, ity of FASTCLIX 00:00: DX:250.01, [place] as LANCING 00 six times Medical DEV) Misc per day. Branch hydrALAZINE Yes [id number] 10mg Take 1 [facility] 10 mg 6-08 tablet by ity of tablet 00:00: mouth 3 [place] (three) Medical times Branch daily as needed (Take 1 Tablet TID PRN if BP >160/90). rosuvastati Yes [id number] 20mg Take 1 [facility] n 20 mg 6-08 tablet by ity of tablet 00:00: mouth at [place] 00 bedtime. Medical Branch nicotine Yes [id number] 1{patch Apply 1 [facility] mg/24 hr 6-08 } Patch to ity of patch 00:00: area(s) [place] 00 daily. Medical Apply 21mg Branch patch daily x 6 weeks; then apply 14mf patch daily x 2 weeks; then apply 7mg patch daily x 2 weeks. Stop smoking on initiation of therapy nicotine 7 Yes [id number] 1{patch Apply 1 [facility] mg/24 hr 6-08 } Patch to ity of patch 00:00: area(s) [place] 00 every 24 Medical (twenty-fo Branch ur) hours. Apply 21mg patch daily x 6 weeks; then apply 14mf patch daily x 2 weeks; then apply 7mg patch daily x 2 weeks. Stop smoking on initiation of therapy nicotine 14 Yes [id number] 1{patch Apply 1 [facility] mg/24 hr 6-08 } Patch to ity of patch 00:00: area(s) [place] 00 every 24 Medical (twenty-fo Branch ur) hours. Apply 21mg patch daily x 6 weeks; then apply 14mf patch daily x 2 weeks; then apply 7mg patch daily x 2 weeks. Stop smoking on initiation of therapy OXcarbazepi Yes [id number] 300mg Take 1 [facility] ne 300 mg 6-08 tablet by ity o f tablet 00:00: mouth 2 [place] (two) Medical times Branch daily. lancets Yes [id number] Use 3X Uni vers (FREESTYLE 6-08 daily. Dx ity of LANCETS) 28 00:00: Code E11.9 [place] gauge Misc 00 Medical Branch insulin Yes [id number] 60U inject 60 [facility] glargine 6-08 Units ity of U-300 conc 00:00: under the [place] (TOUJEO MAX 00 skin 2 Medica l U-300 (two) Branch SOLOSTAR) times 300 unit/mL daily (3 mL) InPn before breakfast and dinner. insulin Yes [id number] Blood Univ ers lispro 6-08 glucose < ity of (HUMALOG 00:00: 90: do not [place] as KWIKPEN 00 use Blood Medical INSULIN) glucose Branch 100 unit/mL 90-120, pen subtract 1 injector Unit, give 4 units Blood glucose 120-150 : GIVE 5 UNITS Blood glucose 150 - 180 add 1 unit, give 6 units Blood glucose 181 - 210 add 2 units, given 7 units Blood glucose 211 - 240 add 3 units, give 8 units Blood glucose 241 - 300 add 4 units, give 9 units Blood glucose > 300, add 5 Units. Given 10 units, recheck in 3 hours. If blood glucose >300 seek medical attention Lancets Yes [id number] Use as Uni vers (ACCU-CHEK 6-08 directed, ity of FASTCLIX 00:00: DX:250.01, [place] as LANCING 00 six times Medical DEV) Misc per day. Branch hydrALAZINE Yes [id number] 10mg Take 1 [facility] 10 mg 6-08 tablet by ity of tablet 00:00: mouth 3 [place] 00 (three) Medical times Branch daily as needed (Take 1 Tablet TID PRN if BP >160/90). rosuvastati Yes [id number] 20mg Take 1 [facility] n 20 mg 6-08 tablet by ity of tablet 00:00: mouth at [place] 00 bedtime. Medical Branch nicotine Yes [id number] 1{patch Apply 1 [facility] mg/24 hr 6-08 } Patch to ity of patch 00:00: area(s) [place] 00 daily. Medical Apply 21mg Branch patch daily x 6 weeks; then apply 14mf patch daily x 2 weeks; then apply 7mg patch daily x 2 weeks. Stop smoking on initiation of therapy nicotine 7 Yes [id number] 1{patch Apply 1 [facility] mg/24 hr 6-08 } Patch to ity of patch 00:00: area(s) [place] 00 every 24 Medical (twenty-fo Branch ur) hours. Apply 21mg patch daily x 6 weeks; then apply 14mf patch daily x 2 weeks; then apply 7mg patch daily x 2 weeks. Stop smoking on initiation of therapy nicotine 14 Yes [id number] 1{patch Apply 1 [facility] mg/24 hr 6-08 } Patch to ity of patch 00:00: area(s) [place] 00 every 24 Medical (twenty-fo Branch ur) hours. Apply 21mg patch daily x 6 weeks; then apply 14mf patch daily x 2 weeks; then apply 7mg patch daily x 2 weeks. Stop smoking on initiation of therapy OXcarbazepi Yes [id number] 300mg Take 1 [facility] ne 300 mg 6-08 tablet by ity o f tablet 00:00: mouth 2 [place] [address] (two) Medical times Branch daily. lancets Yes [id number] Use 3X Uni vers (FREESTYLE 6-08 daily. Dx ity of LANCETS) 28 00:00: Code E11.9 [facility] Misc 00 Medical Branch insulin Yes [id number] 60U inject 60 [facility] glargine 6-08 Units ity of U-300 conc 00:00: under the [place] ([place]JE[place] MAX 00 skin 2 Medica l U-300 (two) [facility] times 300 unit/mL daily (3 mL) InPn before breakfast and dinner. insulin Yes [id number] Blood Univ ers lispro 6-08 glucose < ity of (HUMALOG 00:00: 90: do not [place] as KWIKPEN 00 use Blood Medical INSULIN) glucose Branch 100 unit/mL 90-120, pen subtract 1 injector Unit, give 4 units Blood glucose 120-150 : GIVE 5 UNITS Blood glucose 150 - 180 add 1 unit, give 6 units Blood glucose 181 - 210 add 2 units, given 7 units Blood glucose 211 - 240 add 3 units, give 8 units Blood glucose 241 - 300 add 4 units, give 9 units Blood glucose > 300, add 5 Units. Given 10 units, recheck in 3 hours. If blood glucose >300 seek medical attention Lancets Yes [id number] Use as Uni vers (ACCU-CHEK 6-08 directed, ity of FASTCLIX 00:00: DX:250.01, [place] L[place]ING 00 six times Medical DEV) Misc per day. Branch hydrALAZINE Yes [id number] 10mg Take 1 [facility] 10 mg 6-08 tablet by ity of tablet 00:00: mouth 3 [place] 00 (three) Medical times Branch daily as needed (Take 1 Tablet TID PRN if BP >160/90). rosuvastati Yes [id number] 20mg Take 1 Univers n 20 mg 6-08 tablet by ity of tablet 00:00: mouth at [place] 00 bedtime. Medical Branch nicotine 21 Yes [id number] 1{patch Apply 1 [facility] mg/24 hr 6-08 } Patch to ity of patch 00:00: area(s) [place] 00 daily. Medical Apply 21mg Branch patch daily x 6 weeks; then apply 14mf patch daily x 2 weeks; then apply 7mg patch daily x 2 weeks. Stop smoking on initiation of therapy nicotine 7 Yes [id number] 1{patch Apply 1 [facility] mg/24 hr 6-08 } Patch to ity of patch 00:00: area(s) [place] 00 every 24 Medical (twenty-fo Branch ur) hours. Apply 21mg patch daily x 6 weeks; then apply 14mf patch daily x 2 weeks; then apply 7mg patch daily x 2 weeks. Stop smoking on initiation of therapy nicotine 14 Yes [id number] 1{patch Apply 1 [facility] mg/24 hr 6-08 } Patch to ity of patch 00:00: area(s) [place] 00 every 24 Medical (twenty-fo Branch ur) hours. Apply 21mg patch daily x 6 weeks; then apply 14mf patch daily x 2 weeks; then apply 7mg patch daily x 2 weeks. Stop smoking on initiation of therapy lancets Yes [id number] Use 3X Uni vers (FREESTYLE 6-08 daily. Dx ity of LANCETS) 28 00:00: Code E11.9 [place] gauge Misc 00 Medical Branch insulin Yes [id number] 60U inject 60 [facility] glargine 6-08 Units ity of U-300 conc 00:00: under the [place] (TOUJEO MAX 00 skin 2 Medica l U-300 (two) Branch SOLOSTAR) times 300 unit/mL daily (3 mL) InPn before breakfast and dinner. insulin Yes [id number] Blood Univ ers lispro 6-08 glucose < ity of (HUMALOG 00:00: 90: do not [place] as KWIKPEN 00 use Blood Medical INSULIN) glucose Branch 100 unit/mL 90-120, pen subtract 1 injector Unit, give 4 units Blood glucose 120-150 : GIVE 5 UNITS Blood glucose 150 - 180 add 1 unit, give 6 units Blood glucose 181 - 210 add 2 units, given 7 units Blood glucose 211 - 240 add 3 units, give 8 units Blood glucose 241 - 300 add 4 units, give 9 units Blood glucose > 300, add 5 Units. Given 10 units, recheck in 3 hours. If blood glucose >300 seek medical attention Lancets Yes [id number] Use as Uni vers (ACCU-CHEK 6-08 directed, ity of FASTCLIX 00:00: DX:250.01, [place] 00 six times Medical DEV) Misc per day. Branch hydrALAZINE Yes [id number] 10mg Take 1 [facility] 10 mg 6-08 tablet by ity of tablet 00:00: mouth 3 [place] 00 (three) Medical times Branch daily as needed (Take 1 Tablet TID PRN if BP >160/90). rosuvastati Yes [id number] 20mg Take 1 [facility] n 20 mg 6-08 tablet by ity of tablet 00:00: mouth at [place] 00 bedtime. Medical Branch nicotine 21 Yes [id number] 1{patch Apply 1 [facility] mg/24 hr 6-08 } Patch to ity of patch 00:00: area(s) [place] 00 daily. Medical Apply 21mg Branch patch daily x 6 weeks; then apply 14mf patch daily x 2 weeks; then apply 7mg patch daily x 2 weeks. Stop smoking on initiation of therapy nicotine 7 Yes [id number] 1{patch Apply 1 [facility] mg/24 hr 6-08 } Patch to ity of patch 00:00: area(s) [place] 00 every 24 Medical (twenty-fo Branch ur) hours. Apply 21mg patch daily x 6 weeks; then apply 14mf patch daily x 2 weeks; then apply 7mg patch daily x 2 weeks. Stop smoking on initiation of therapy nicotine 14 Yes [id number] 1{patch Apply 1 [facility] mg/24 hr 6-08 } Patch to ity of patch 00:00: area(s) [place] 00 every 24 Medical (twenty-fo Branch ur) hours. Apply 21mg patch daily x 6 weeks; then apply 14mf patch daily x 2 weeks; then apply 7mg patch daily x 2 weeks. Stop smoking on initiation of therapy lancets Yes [id number] Use 3X Uni vers (FREESTYLE 6-08 daily. Dx ity of LANCETS) 28 00:00: Code E11.9 [place] gauge Misc 00 Medical Branch insulin Yes [id number] 60U inject 60 [facility] glargine 6-08 Units ity of U-300 conc 00:00: under the [place] (TOUJEO MAX 00 skin 2 Medica l U-300 (two) Branch SOLOSTAR) times 300 unit/mL daily (3 mL) InPn before breakfast and dinner. insulin Yes [id number] Blood Univ ers lispro 6-08 glucose < ity of (HUMALOG 00:00: 90: do not [place] as KWIKPEN 00 use Blood Medical INSULIN) glucose Branch 100 unit/mL 90-120, pen subtract 1 injector Unit, give 4 units Blood glucose 120-150 : GIVE 5 UNITS Blood glucose 150 - 180 add 1 unit, give 6 units Blood glucose 181 - 210 add 2 units, given 7 units Blood glucose 211 - 240 add 3 units, give 8 units Blood glucose 241 - 300 add 4 units, give 9 units Blood glucose > 300, add 5 Units. Given 10 units, recheck in 3 hours. If blood glucose >300 seek medical attention Lancets Yes [id number] Use as Uni vers (ACCU-CHEK 6-08 directed, ity of FASTCLIX 00:00: DX:250.01, [place] as [place] 00 six times Medical DEV) Misc per day. Branch hydrALAZINE Yes [id number] 10mg Take 1 [facility] 10 mg 6-08 tablet by ity of tablet 00:00: mouth 3 [place] 00 (three) Medical times Branch daily as needed (Take 1 Tablet TID PRN if BP >160/90). rosuvastati Yes [id number] 20mg Take 1 [facility] n 20 mg 6-08 tablet by ity of tablet 00:00: mouth at [place] 00 bedtime. Medical Branch nicotine 21 Yes [id number] 1{patch Apply 1 [facility] mg/24 hr 6-08 } Patch to ity of patch 00:00: area(s) [place] 00 daily. Medical Apply 21mg Branch patch daily x 6 weeks; then apply 14mf patch daily x 2 weeks; then apply 7mg patch daily x 2 weeks. Stop smoking on initiation of therapy nicotine 7 Yes [id number] 1{patch Apply 1 [facility] mg/24 hr 6-08 } Patch to ity of patch 00:00: area(s) [place] 00 every 24 Medical (twenty-fo Branch ur) hours. Apply 21mg patch daily x 6 weeks; then apply 14mf patch daily x 2 weeks; then apply 7mg patch daily x 2 weeks. Stop smoking on initiation of therapy nicotine 14 Yes [id number] 1{patch Apply 1 [facility] mg/24 hr 6-08 } Patch to ity of patch 00:00: area(s) [place] 00 every 24 Medical (twenty-fo Branch ur) hours. Apply 21mg patch daily x 6 weeks; then apply 14mf patch daily x 2 weeks; then apply 7mg patch daily x 2 weeks. Stop smoking on initiation of therapy ARIPiprazol 0 Yes [id number] 10mg Take 1 Univers e 10 mg 6-08 tablet by ity of tablet 00:00: mouth [place] 00 daily. Medical Branch OXcarbazepi 2020-0 Yes [id number] 300mg Take 1 [facility] ne 300 mg 6-08 tablet by ity o f tablet 00:00: mouth 2 00 (two) Medical times Branch daily. PARoxetine 2020- Yes [id number] 40mg Take 1 U nivers mesylate 40 6-08 tablet by ity of mg tablet 00:00: mouth [place] 00 every Medical morning. Branch pregabalin Yes [id number] 75mg Take 1 U nivers 75 mg 6-08 capsule by ity of capsule 00:00: mouth 3 [place] 00 (three) Medical times Branch daily. 1 pill bid for a week. If pain not better than 2 pills bid. lancets Yes [id number] Use 3X Uni vers (FREESTYLE 6-08 daily. Dx ity of LANCETS) 28 00:00: Code E11.9 [place] gauge Misc 00 Medical Branch insulin Yes [id number] 60U inject 60 [facility] glargine 6-08 Units ity of U-300 conc 00:00: under the [place] ([place]OUJEO MAX 00 skin 2 Medica l U-300 (two) Branch SOLOSTAR) times 300 unit/mL daily (3 mL) InPn before breakfast and dinner. insulin Yes [id number] Blood Univ ers lispro 6-08 glucose < ity of (HUMALOG 00:00: 90: do not [place] as KWIKPEN 00 use Blood Medical INSULIN) glucose Branch 100 unit/mL 90-120, pen subtract 1 injector Unit, give 4 units Blood glucose 120-150 : GIVE 5 UNITS Blood glucose 150 - 180 add 1 unit, give 6 units Blood glucose 181 - 210 add 2 units, given 7 units Blood glucose 211 - 240 add 3 units, give 8 units Blood glucose 241 - 300 add 4 units, give 9 units Blood glucose > 300, add 5 Units. Given 10 units, recheck in 3 hours. If blood glucose >300 seek medical attention Lancets Yes [id number] Use as Uni vers (ACCU-CHEK 6-08 directed, ity of FASTCLIX 00:00: DX:250.01, [place] as [place]ING 00 six times Medical DEV) Misc per day. Branch hydrALAZINE Yes [id number] 10mg Take 1 [facility] 10 mg 6-08 tablet by ity of tablet 00:00: mouth 3 [place] 00 (three) Medical times Branch daily as needed (Take 1 Tablet TID PRN if BP >160/90). rosuvastati Yes [id number] 20mg Take 1 Univers n 20 mg 6-08 tablet by ity of tablet 00:00: mouth at [place] 00 bedtime. Medical Branch nicotine 21 Yes [id number] 1{patch Apply 1 [facility] mg/24 hr 6-08 } Patch to ity of patch 00:00: area(s) [place] 00 daily. Medical Apply 21mg Branch patch daily x 6 weeks; then apply 14mf patch daily x 2 weeks; then apply 7mg patch daily x 2 weeks. Stop smoking on initiation of therapy nicotine 7 2020- Yes [id number] 1{patch Apply 1 [facility] mg/24 hr 6-08 } Patch to ity of patch 00:00: area(s) [place] 00 every 24 Medical (twenty-fo Branch ur) hours. Apply 21mg patch daily x 6 weeks; then apply 14mf patch daily x 2 weeks; then apply 7mg patch daily x 2 weeks. Stop smoking on initiation of therapy nicotine 14 Yes [id number] 1{patch Apply 1 [facility] mg/24 hr 6-08 } Patch to ity of patch 00:00: area(s) [place] 00 every 24 Medical (twenty-fo Branch ur) hours. Apply 21mg patch daily x 6 weeks; then apply 14mf patch daily x 2 weeks; then apply 7mg patch daily x 2 weeks. Stop smoking on initiation of therapy ARIPiprazol Yes [id number] 10mg Take 1 Univers e 10 mg 6-08 tablet by ity of tablet 00:00: mouth [place] 00 daily. Medical Branch OXcarbazepi Yes [id number] 300mg Take 1 [facility] ne 300 mg 6-08 tablet by ity o f tablet 00:00: mouth 2 [place] 00 (two) Medical times Branch daily. PARoxetine Yes [id number] 40mg Take 1 U nivers mesylate 40 6-08 tablet by ity of mg tablet 00:00: mouth [place] 00 every Medical morning. Branch pregabalin Yes [id number] 75mg Take 1 U nivers 75 mg 6-08 capsule by ity of capsule 00:00: mouth 3 [place] 00 (three) Medical times Branch daily. 1 pill bid for a week. If pain not better than 2 pills bid. lancets Yes [id number] Use 3X Uni vers (FREESTYLE 6-08 daily. Dx ity of LANCETS) 28 00:00: Code E11.9 [place] [facility] Misc 00 Medical Branch insulin 2020-0 Yes [id number] 60U inject 60 Univers glargine 6-08 Units ity of U-300 conc 00:00: under the [place] (TOUJE[place] MAX 00 skin 2 Medica l U-300 (two) Branch SOLOSTAR) times 300 unit/mL daily (3 mL) InPn before breakfast and dinner. insulin Yes [id number] Blood Univ ers lispro 6-08 glucose < ity of (HUMALOG 00:00: 90: do not [place] as KWIKPEN 00 use Blood Medical INSULIN) glucose Branch 100 unit/mL 90-120, pen subtract 1 injector Unit, give 4 units Blood glucose 120-150 : GIVE 5 UNITS Blood glucose 150 - 180 add 1 unit, give 6 units Blood glucose 181 - 210 add 2 units, given 7 units Blood glucose 211 - 240 add 3 units, give 8 units Blood glucose 241 - 300 add 4 units, give 9 units Blood glucose > 300, add 5 Units. Given 10 units, recheck in 3 hours. If blood glucose >300 seek medical attention Lancets Yes [id number] Use as Uni vers (ACCU-CHEK 6-08 directed, ity of FASTCLIX 00:00: DX:250.01, [place] as LANCING 00 six times Medical DEV) Misc per day. Branch hydrALAZINE Yes [id number] 10mg Take 1 Univers 10 mg 6-08 tablet by ity of tablet 00:00: mouth 3 [place] 00 (three) Medical times Branch daily as needed (Take 1 Tablet TID PRN if BP >160/90). rosuvastati Yes [id number] 20mg Take 1 [facility] n 20 mg 6-08 tablet by ity of tablet 00:00: mouth at [place] 00 bedtime. Medical Branch nicotine 21 Yes [id number] 1{patch Apply 1 [facility] mg/24 hr 6-08 } Patch to ity of patch 00:00: area(s) [place] 00 daily. Medical Apply 21mg Branch patch daily x 6 weeks; then apply 14mf patch daily x 2 weeks; then apply 7mg patch daily x 2 weeks. Stop smoking on initiation of therapy nicotine 7 Yes [id number] 1{patch Apply 1 [facility] mg/24 hr 6-08 } Patch to ity of patch 00:00: area(s) [place] 00 every 24 Medical (twenty-fo Branch ur) hours. Apply 21mg patch daily x 6 weeks; then apply 14mf patch daily x 2 weeks; then apply 7mg patch daily x 2 weeks. Stop smoking on initiation of therapy nicotine 14 Yes [id number] 1{patch Apply 1 [facility] mg/24 hr 6-08 } Patch to ity of patch 00:00: area(s) [place] 00 every 24 Medical (twenty-fo Branch ur) hours. Apply 21mg patch daily x 6 weeks; then apply 14mf patch daily x 2 weeks; then apply 7mg patch daily x 2 weeks. Stop smoking on initiation of therapy ARIPiprazol Yes [id number] 10mg Take 1 Univers e 10 mg 6-08 tablet by ity of tablet 00:00: mouth [place] 00 daily. Medical Branch OXcarbazepi Yes [id number] 300mg Take 1 Univers ne 300 mg 6-08 tablet by ity o f tablet 00:00: mouth 2 [place] 00 (two) Medical times Branch daily. PARoxetine Yes [id number] 40mg Take 1 U nivers mesylate 40 6-08 tablet by ity of mg tablet 00:00: mouth [place] 00 every Medical morning. Branch pregabalin Yes [id number] 75mg Take 1 U nivers 75 mg 6-08 capsule by ity of capsule 00:00: mouth 3 [place] 00 (three) Medical times Branch daily. 1 pill bid for a week. If pain not better than 2 pills bid. lancets Yes [id number] Use 3X Uni vers (FREESTYLE 6-08 daily. Dx ity of LANCETS) 28 00:00: Code E11.9 [place] gauge Misc 00 Medical Branch insulin Yes [id number] 60U inject 60 [facility] glargine 6-08 Units ity of U-300 conc 00:00: under the [place] (TOUJEO MAX 00 skin 2 Medica l U-300 (two) Branch SOLOSTAR) times 300 unit/mL daily (3 mL) InPn before breakfast and dinner. insulin Yes [id number] Blood Univ ers lispro 6-08 glucose < ity of (HUMALOG 00:00: 90: do not [place] as KWIKPEN 00 use Blood Medical INSULIN) glucose Branch 100 unit/mL 90-120, pen subtract 1 injector Unit, give 4 units Blood glucose 120-150 : GIVE 5 UNITS Blood glucose 150 - 180 add 1 unit, give 6 units Blood glucose 181 - 210 add 2 units, given 7 units Blood glucose 211 - 240 add 3 units, give 8 units Blood glucose 241 - 300 add 4 units, give 9 units Blood glucose > 300, add 5 Units. Given 10 units, recheck in 3 hours. If blood glucose >300 seek medical attention Lancets Yes [id number] Use as Uni vers (ACCU-CHEK 6-08 directed, ity of FASTCLIX 00:00: DX:250.01, [place] as LANCING 00 six times Medical DEV) Misc per day. Branch hydrALAZINE Yes [id number] 10mg Take 1 Univers 10 mg 6-08 tablet by ity of tablet 00:00: mouth 3 [place] 00 (three) Medical times Branch daily as needed (Take 1 Tablet TID PRN if BP >160/90). rosuvastati Yes [id number] 20mg Take 1 [facility] n 20 mg 6-08 tablet by ity of tablet 00:00: mouth at [place] 00 bedtime. Medical Branch nicotine Yes [id number] 1{patch Apply 1 [facility] mg/24 hr 6-08 } Patch to ity of patch 00:00: area(s) [place] 00 daily. Medical Apply 21mg Branch patch daily x 6 weeks; then apply 14mf patch daily x 2 weeks; then apply 7mg patch daily x 2 weeks. Stop smoking on initiation of therapy nicotine 7 Yes [id number] 1{patch Apply 1 [facility] mg/24 hr 6-08 } Patch to ity of patch 00:00: area(s) [place] 00 every 24 Medical ([facility] Branch ur) hours. Apply 21mg patch daily x 6 weeks; then apply 14mf patch daily x 2 weeks; then apply 7mg patch daily x 2 weeks. Stop smoking on initiation of therapy nicotine 14 Yes [id number] 1{patch Apply 1 [facility] mg/24 hr 6-08 } Patch to ity of patch 00:00: area(s) [place] 00 every 24 Medical (twenty- Branch ur) hours. Apply 21mg patch daily x 6 weeks; then apply 14mf patch daily x 2 weeks; then apply 7mg patch daily x 2 weeks. Stop smoking on initiation of therapy ARIPiprazol Yes [id number] 10mg Take 1 [facility] e 10 mg 6-08 tablet by ity of tablet 00:00: mouth [place] 00 daily. Medical Branch OXcarbazepi Yes [id number] 300mg Take 1 [facility] ne 300 mg 6-08 tablet by ity o f tablet 00:00: mouth 2 [place] [address] (two) Medical times Branch daily. PARoxetine Yes [id number] 40mg Take 1 U nivers mesylate 40 6-08 tablet by ity of mg tablet 00:00: mouth [place] 00 every Medical morning. Branch pregabalin Yes [id number] 75mg Take 1 U nivers 75 mg 6-08 capsule by ity of capsule 00:00: mouth 3 [place] [address] (three) Medical times Branch daily. 1 pill bid for a week. If pain not better than 2 pills bid. lancets Yes [id number] Use 3X Uni vers (FREESTYLE 6-08 daily. Dx ity of LANCETS) 28 00:00: Code E11.9 [place] [facility] Mis 00 Medical Branch insulin Yes [id number] 60U inject 60 [facility] glargine 6-08 Units ity of U-300 conc 00:00: under the [place] (TOUJEO MAX 00 skin 2 Medica l U-300 (two) Branch [facility]) times 300 unit/mL daily (3 mL) InPn before breakfast and dinner. insulin Yes [id number] Blood Univ ers lispro 6-08 glucose < ity of (HUMALOG 00:00: 90: do not [place] as KWIKPEN 00 use Blood Medical INSULIN) glucose Branch 100 unit/mL 90-120, pen subtract 1 injector Unit, give 4 units Blood glucose 120-150 : GIVE 5 UNITS Blood glucose 150 - 180 add 1 unit, give 6 units Blood glucose 181 - 210 add 2 units, given 7 units Blood glucose 211 - 240 add 3 units, give 8 units Blood glucose 241 - 300 add 4 units, give 9 units Blood glucose > 300, add 5 Units. Given 10 units, recheck in 3 hours. If blood glucose >300 seek medical attention Lancets Yes [id number] Use as Uni vers (ACCU-CHEK 6-08 directed, ity of FASTCLIX 00:00: DX:250.01, [place] as LANCING 00 six times Medical DEV) Misc per day. Branch hydrALAZINE Yes [id number] 10mg Take 1 Univers 10 mg 6-08 tablet by ity of tablet 00:00: mouth 3 00 (three) Medical times Branch daily as needed (Take 1 Tablet TID PRN if BP >160/90). rosuvastati Yes [id number] 20mg Take 1 [facility] n 20 mg 6-08 tablet by ity of tablet 00:00: mouth at [place] 00 bedtime. Medical Branch nicotine 21 Yes [id number] 1{patch Apply 1 [facility] mg/24 hr 6-08 } Patch to ity of patch 00:00: area(s) [place] 00 daily. Medical Apply 21mg Branch patch daily x 6 weeks; then apply 14mf patch daily x 2 weeks; then apply 7mg patch daily x 2 weeks. Stop smoking on initiation of therapy nicotine 7 Yes [id number] 1{patch Apply 1 [facility] mg/24 hr 6-08 } Patch to ity of patch 00:00: area(s) [place] 00 every 24 Medical (twenty-fo Branch ur) hours. Apply 21mg patch daily x 6 weeks; then apply 14mf patch daily x 2 weeks; then apply 7mg patch daily x 2 weeks. Stop smoking on initiation of therapy nicotine 14 Yes [id number] 1{patch Apply 1 [facility] mg/24 hr 6-08 } Patch to ity of patch 00:00: [facility](s) [place] 00 every 24 Medical (twenty-fo Branch ur) hours. Apply 21mg patch daily x 6 weeks; then apply 14mf patch daily x 2 weeks; then apply 7mg patch daily x 2 weeks. Stop smoking on initiation of therapy ARIPiprazol Yes [id number] 10mg Take 1 Univers e 10 mg 6-08 tablet by ity of tablet 00:00: mouth [place] 00 daily. Medical Branch OXcarbazepi Yes [id number] 300mg Take 1 [facility] ne 300 mg 6-08 tablet by ity o f tablet 00:00: mouth 2 (two) Medical times Branch daily. PARoxetine Yes [id number] 40mg Take 1 U nivers mesylate 40 6-08 tablet by ity of mg tablet 00:00: mouth 00 every Medical morning. Branch pregabalin Yes [id number] 75mg Take 1 U nivers 75 mg 6-08 capsule by ity of capsule 00:00: mouth 3 (three) Medical times Branch daily. 1 pill bid for a week. If pain not better than 2 pills bid. lancets Yes [id number] Use 3X Uni vers (FREESTYLE 6-08 daily. Dx ity of LANCETS) 28 00:00: Code E11.9 [place] gauge Misc 00 Medical Branch insulin Yes [id number] 60U inject 60 [facility] glargine 6-08 Units ity of U-300 conc 00:00: under the [place] (TOUJEO MAX 00 skin 2 Medica l U-300 (two) Branch SOLOSTAR) times 300 unit/mL daily (3 mL) InPn before breakfast and dinner. insulin Yes [id number] Blood Univ ers lispro 6-08 glucose < ity of (HUMALOG 00:00: 90: do not [place] as KWIKPEN 00 use Blood Medical INSULIN) glucose Branch 100 unit/mL 90-120, pen subtract 1 injector Unit, give 4 units Blood glucose 120-150 : GIVE 5 UNITS Blood glucose 150 - 180 add 1 unit, give 6 units Blood glucose 181 - 210 add 2 units, given 7 units Blood glucose 211 - 240 add 3 units, give 8 units Blood glucose 241 - 300 add 4 units, give 9 units Blood glucose > 300, add 5 Units. Given 10 units, recheck in 3 hours. If blood glucose >300 seek medical attention Lancets Yes [id number] Use as Uni vers (ACCU-CHEK 6-08 directed, ity of FASTCLIX 00:00: DX:250.01, [place] as [place] 00 six times Medical DEV) Misc per day. Branch hydrALAZINE Yes [id number] 10mg Take 1 Univers 10 mg 6-08 tablet by ity of tablet 00:00: mouth 3 (three) Medical times Branch daily as needed (Take 1 Tablet TID PRN if BP >160/90). rosuvastati Yes [id number] 20mg Take 1 Univers n 20 mg 6-08 tablet by ity of tablet 00:00: mouth at [place] [address] bedtime. Medical Branch nicotine 21 0 Yes [id number] 1{patch Apply 1 [facility] mg/24 hr 6-08 } Patch to ity of patch 00:00: area() [place] 00 daily. Medical Apply 21mg Branch patch daily x 6 weeks; then apply 14mf patch daily x 2 weeks; then apply 7mg patch daily x 2 weeks. Stop smoking on initiation of therapy nicotine 7 2020- Yes [id number] 1{patch Apply 1 [facility] mg/24 hr 6-08 } Patch to ity of patch 00:00: area(s) [place] 00 every 24 Medical (twenty- Branch ur) hours. Apply 21mg patch daily x 6 weeks; then apply 14mf patch daily x 2 weeks; then apply 7mg patch daily x 2 weeks. Stop smoking on initiation of therapy nicotine 14 Yes [id number] 1{patch Apply 1 [facility] mg/24 hr 6-08 } Patch to ity of patch 00:00: [facility]() [place] 00 every 24 Medical ([facility] ur) hours. Apply 21mg patch daily x 6 weeks; then apply 14mf patch daily x 2 weeks; then apply 7mg patch daily x 2 weeks. Stop smoking on initiation of therapy ARIPiprazol Yes [id number] 10mg Take 1 Univers e 10 mg 6-08 tablet by ity of tablet 00:00: mouth [place] 00 daily. Medical Branch OXcarbazepi 2020-0 Yes [id number] 300mg Take 1 [facility] ne 300 mg 6-08 tablet by ity o f tablet 00:00: mouth 2 [place] (two) Medical times [place] daily. PARoxetine 2020- Yes [id number] 40mg Take 1 U nivers mesylate 40 6-08 tablet by ity of mg tablet 00:00: mouth [place] 00 every Medical morning. Branch pregabalin Yes [id number] 75mg Take 1 U nivers 75 mg 6-08 capsule by ity of capsule 00:00: mouth 3 [place] (three) Medical times [place] daily. 1 pill bid for a week. If pain not better than 2 pills bid. lancets 2020-0 Yes [id number] Use 3X Uni vers (FREESTYLE 6-08 daily. Dx ity of LANCETS) 28 00:00: Code E11.9 [place] gauge Misc 00 Medical Branch insulin Yes [id number] 60U inject 60 [facility] glargine 6-08 Units ity of U-300 conc 00:00: under the [place] (TOUJEO MAX 00 skin 2 Medica l U-300 (two) Branch SOLOSTAR) times 300 unit/mL daily (3 mL) InPn before breakfast and dinner. insulin Yes [id number] Blood Univ ers lispro 6-08 glucose < ity of (HUMALOG 00:00: 90: do not [place] as KWIKPEN 00 use Blood Medical INSULIN) glucose Branch 100 unit/mL 90-120, pen subtract 1 injector Unit, give 4 units Blood glucose 120-150 : GIVE 5 UNITS Blood glucose 150 - 180 add 1 unit, give 6 units Blood glucose 181 - 210 add 2 units, given 7 units Blood glucose 211 - 240 add 3 units, give 8 units Blood glucose 241 - 300 add 4 units, give 9 units Blood glucose > 300, add 5 Units. Given 10 units, recheck in 3 hours. If blood glucose >300 seek medical attention Lancets Yes [id number] Use as Uni vers (ACCU-CHEK 6-08 directed, ity of FASTCLIX 00:00: DX:250.01, [place] as [place] 00 six times Medical DEV) Misc per day. Branch hydrALAZINE Yes [id number] 10mg Take 1 Univers 10 mg 6-08 tablet by ity of tablet 00:00: mouth 3 [place] 00 (three) Medical times Branch daily as needed (Take 1 Tablet TID PRN if BP >160/90). rosuvastati Yes [id number] 20mg Take 1 [facility] n 20 mg 6-08 tablet by ity of tablet 00:00: mouth at [place] 00 bedtime. Medical Branch nicotine 21 Yes [id number] 1{patch Apply 1 [facility] mg/24 hr 6-08 } Patch to ity of patch 00:00: area(s) [place] 00 daily. Medical Apply 21mg Branch patch daily x 6 weeks; then apply 14mf patch daily x 2 weeks; then apply 7mg patch daily x 2 weeks. Stop smoking on initiation of therapy nicotine 7 Yes [id number] 1{patch Apply 1 [facility] mg/24 hr 6-08 } Patch to ity of patch 00:00: area(s) [place] 00 every 24 Medical (twenty-fo Branch ur) hours. Apply 21mg patch daily x 6 weeks; then apply 14mf patch daily x 2 weeks; then apply 7mg patch daily x 2 weeks. Stop smoking on initiation of therapy nicotine 14 Yes [id number] 1{patch Apply 1 [facility] mg/24 hr 6-08 } Patch to ity of patch 00:00: area(s) [place] 00 every 24 Medical (twenty-fo Branch ur) hours. Apply 21mg patch daily x 6 weeks; then apply 14mf patch daily x 2 weeks; then apply 7mg patch daily x 2 weeks. Stop smoking on initiation of therapy ARIPiprazol Yes [id number] 10mg Take 1 Univers e 10 mg 6-08 tablet by ity of tablet 00:00: mouth [place] 00 daily. Medical Branch OXcarbazepi Yes [id number] 300mg Take 1 [facility] ne 300 mg 6-08 tablet by ity o f tablet 00:00: mouth 2 [place] 00 (two) Medical times Branch daily. PARoxetine Yes [id number] 40mg Take 1 U nivers mesylate 40 6-08 tablet by ity of mg tablet 00:00: mouth [place] 00 every Medical morning. Branch lancets Yes [id number] Use 3X Uni vers (FREESTYLE 6-08 daily. Dx ity of LANCETS) 28 00:00: Code E11.9 [place] gauge Misc 00 Medical Branch insulin Yes [id number] 60U inject 60 [facility] glargine 6-08 Units ity of U-300 conc 00:00: under the [place] (TOUJEO MAX 00 skin 2 Medica l U-300 (two) Branch SOLOSTAR) times 300 unit/mL daily (3 mL) InPn before breakfast and dinner. insulin Yes [id number] Blood Univ ers lispro 6-08 glucose < ity of (HUMALOG 00:00: 90: do not [place] as KWIKPEN 00 use Blood Medical INSULIN) glucose Branch 100 unit/mL 90-120, pen subtract 1 injector Unit, give 4 units Blood glucose 120-150 : GIVE 5 UNITS Blood glucose 150 - 180 add 1 unit, give 6 units Blood glucose 181 - 210 add 2 units, given 7 units Blood glucose 211 - 240 add 3 units, give 8 units Blood glucose 241 - 300 add 4 units, give 9 units Blood glucose > 300, add 5 Units. Given 10 units, recheck in 3 hours. If blood glucose >300 seek medical attention Lancets Yes [id number] Use as Uni vers (ACCU-CHEK 6-08 directed, ity of FASTCLIX 00:00: DX:250.01, [place] as [place] 00 six times Medical DEV) Misc per day. Branch hydrALAZINE Yes [id number] 10mg Take 1 [facility] 10 mg 6-08 tablet by ity of tablet 00:00: mouth 3 00 (three) Medical times Branch daily as needed (Take 1 Tablet TID PRN if BP >160/90). rosuvastati Yes [id number] 20mg Take 1 [facility] n 20 mg 6-08 tablet by ity of tablet 00:00: mouth at [place] 00 bedtime. Medical Branch nicotine Yes [id number] 1{patch Apply 1 [facility] mg/24 hr 6-08 } Patch to ity of patch 00:00: area(s) [place] 00 daily. Medical Apply 21mg Branch patch daily x 6 weeks; then apply 14mf patch daily x 2 weeks; then apply 7mg patch daily x 2 weeks. Stop smoking on initiation of therapy nicotine 7 Yes [id number] 1{patch Apply 1 [facility] mg/24 hr 6-08 } Patch to ity of patch 00:00: area(s) [place] 00 every 24 Medical (twenty- Branch ur) hours. Apply 21mg patch daily x 6 weeks; then apply 14mf patch daily x 2 weeks; then apply 7mg patch daily x 2 weeks. Stop smoking on initiation of therapy nicotine 14 Yes [id number] 1{patch Apply 1 [facility] mg/24 hr 6-08 } Patch to ity of patch 00:00: area(s) [place] 00 every 24 Medical (twenty- Branch ur) hours. Apply 21mg patch daily x 6 weeks; then apply 14mf patch daily x 2 weeks; then apply 7mg patch daily x 2 weeks. Stop smoking on initiation of therapy ARIPiprazol Yes [id number] 10mg Take 1 Univers e 10 mg 6-08 tablet by ity of tablet 00:00: mouth [place] 00 daily. Medical Branch OXcarbazepi Yes [id number] 300mg Take 1 [facility] ne 300 mg 6-08 tablet by ity o f tablet 00:00: mouth 2 [place] 00 (two) Medical times Branch daily. PARoxetine Yes [id number] 40mg Take 1 U nivers mesylate 40 6-08 tablet by ity of mg tablet 00:00: mouth [place] 00 every Medical morning. Branch lancets Yes [id number] Use 3X Uni vers (FREESTYLE 6-08 daily. Dx ity of LANCETS) 28 00:00: Code E11.9 [place] gauge Misc 00 Medical Branch insulin Yes [id number] 60U inject 60 [facility] glargine 6-08 Units ity of U-300 conc 00:00: under the [place] ([place]JE[place] MAX 00 skin 2 Medica l U-300 (two) Branch SOLOSTAR) times 300 unit/mL daily (3 mL) InPn before breakfast and dinner. insulin Yes [id number] Blood Univ ers lispro 6-08 glucose < ity of (HUMALOG 00:00: 90: do not [place] as KWIKPEN 00 use Blood Medical INSULIN) glucose Branch 100 unit/mL 90-120, pen subtract 1 injector Unit, give 4 units Blood glucose 120-150 : GIVE 5 UNITS Blood glucose 150 - 180 add 1 unit, give 6 units Blood glucose 181 - 210 add 2 units, given 7 units Blood glucose 211 - 240 add 3 units, give 8 units Blood glucose 241 - 300 add 4 units, give 9 units Blood glucose > 300, add 5 Units. Given 10 units, recheck in 3 hours. If blood glucose >300 seek medical attention Lancets Yes [id number] Use as Uni vers (ACCU-CHEK 6-08 directed, ity of FASTCLIX 00:00: DX:250.01, [place] 00 six times Medical DEV) Misc per day. Branch hydrALAZINE Yes [id number] 10mg Take 1 [facility] 10 mg 6-08 tablet by ity of tablet 00:00: mouth 3 [place] 00 (three) Medical times Branch daily as needed (Take 1 Tablet TID PRN if BP >160/90). rosuvastati Yes [id number] 20mg Take 1 [facility] n 20 mg 6-08 tablet by ity of tablet 00:00: mouth at [place] 00 bedtime. Medical Branch nicotine 21 Yes [id number] 1{patch Apply 1 [facility] mg/24 hr 6-08 } Patch to ity of patch 00:00: area(s) [place] 00 daily. Medical Apply 21mg Branch patch daily x 6 weeks; then apply 14mf patch daily x 2 weeks; then apply 7mg patch daily x 2 weeks. Stop smoking on initiation of therapy nicotine 7 Yes [id number] 1{patch Apply 1 [facility] mg/24 hr 6-08 } Patch to ity of patch 00:00: area(s) [place] 00 every 24 Medical (twenty-fo Branch ur) hours. Apply 21mg patch daily x 6 weeks; then apply 14mf patch daily x 2 weeks; then apply 7mg patch daily x 2 weeks. Stop smoking on initiation of therapy nicotine 14 Yes [id number] 1{patch Apply 1 [facility] mg/24 hr 6-08 } Patch to ity of patch 00:00: area(s) [place] 00 every 24 Medical (twenty-fo Branch ur) hours. Apply 21mg patch daily x 6 weeks; then apply 14mf patch daily x 2 weeks; then apply 7mg patch daily x 2 weeks. Stop smoking on initiation of therapy ARIPiprazol Yes [id number] 10mg Take 1 Univers e 10 mg 6-08 tablet by ity of tablet 00:00: mouth [place] 00 daily. Medical Branch OXcarbazepi Yes [id number] 300mg Take 1 [facility] ne 300 mg 6-08 tablet by ity o f tablet 00:00: mouth 2 [place] 00 (two) Medical times Branch daily. PARoxetine Yes [id number] 40mg Take 1 U nivers mesylate 40 6-08 tablet by ity of mg tablet 00:00: mouth [place] 00 every Medical morning. Branch lancets Yes [id number] Use 3X Uni vers (FREESTYLE 6-08 daily. Dx ity of LANCETS) 28 00:00: Code E11.9 [facility] 00 Medical Branch insulin Yes [id number] 60U inject 60 [facility] glargine 6-08 Units ity of U-300 conc 00:00: under the [place] ([place]JE[place] MAX 00 skin 2 Medica l U-300 (two) Branch SOLJONEAR) times 300 unit/mL daily (3 mL) InPn before breakfast and dinner. insulin Yes [id number] Blood Univ ers lispro 6-08 glucose < ity of (HUMALOG 00:00: 90: do not [place] as KWIKPEN 00 use Blood Medical INSULIN) glucose Branch 100 unit/mL 90-120, pen subtract 1 injector Unit, give 4 units Blood glucose 120-150 : GIVE 5 UNITS Blood glucose 150 - 180 add 1 unit, give 6 units Blood glucose 181 - 210 add 2 units, given 7 units Blood glucose 211 - 240 add 3 units, give 8 units Blood glucose 241 - 300 add 4 units, give 9 units Blood glucose > 300, add 5 Units. Given 10 units, recheck in 3 hours. If blood glucose >300 seek medical attention Lancets Yes [id number] Use as Uni vers (ACCU-CHEK 6-08 directed, ity of FASTCLIX 00:00: DX:250.01, [place] 00 six times Medical DEV) Misc per day. Branch hydrALAZINE Yes [id number] 10mg Take 1 [facility] 10 mg 6-08 tablet by ity of tablet 00:00: mouth 3 [place] 00 (three) Medical times Branch daily as needed (Take 1 Tablet TID PRN if BP >160/90). rosuvastati Yes [id number] 20mg Take 1 [facility] n 20 mg 6-08 tablet by ity of tablet 00:00: mouth at [place] 00 bedtime. Medical Branch nicotine 21 Yes [id number] 1{patch Apply 1 [facility] mg/24 hr 6-08 } Patch to ity of patch 00:00: area(s) [place] 00 daily. Medical Apply 21mg Branch patch daily x 6 weeks; then apply 14mf patch daily x 2 weeks; then apply 7mg patch daily x 2 weeks. Stop smoking on initiation of therapy nicotine 7 Yes [id number] 1{patch Apply 1 [facility] mg/24 hr 6-08 } Patch to ity of patch 00:00: area(s) [place] 00 every 24 Medical (twenty-fo Branch ur) hours. Apply 21mg patch daily x 6 weeks; then apply 14mf patch daily x 2 weeks; then apply 7mg patch daily x 2 weeks. Stop smoking on initiation of therapy nicotine 14 Yes [id number] 1{patch Apply 1 [facility] mg/24 hr 6-08 } Patch to ity of patch 00:00: area(s) [place] 00 every 24 Medical (twenty-fo Branch ur) hours. Apply 21mg patch daily x 6 weeks; then apply 14mf patch daily x 2 weeks; then apply 7mg patch daily x 2 weeks. Stop smoking on initiation of therapy ARIPiprazol Yes [id number] 10mg Take 1 [facility] e 10 mg 6-08 tablet by ity of tablet 00:00: mouth [place] 00 daily. Medical Branch OXcarbazepi Yes [id number] 300mg Take 1 [facility] ne 300 mg 6-08 tablet by ity o f tablet 00:00: mouth 2 [place] 00 (two) Medical times Branch daily. PARoxetine Yes [id number] 40mg Take 1 U nivers mesylate 40 6-08 tablet by ity of mg tablet 00:00: mouth [place] 00 every Medical morning. Branch lancets Yes [id number] Use 3X Uni vers (FREESTYLE 6-08 daily. Dx ity of LANCETS) 28 00:00: Code E11.9 [place] gauge Misc 00 Medical Branch insulin Yes [id number] 60U inject 60 [facility] glargine 6-08 Units ity of U-300 conc 00:00: under the [place] ([place]JE[place] MAX 00 skin 2 Medica l U-300 (two) Branch SOLOSTAR) times 300 unit/mL daily (3 mL) InPn before breakfast and dinner. insulin Yes [id number] Blood Univ ers lispro 6-08 glucose < ity of (HUMALOG 00:00: 90: do not [place] as KWIKPEN 00 use Blood Medical INSULIN) glucose Branch 100 unit/mL 90-120, pen subtract 1 injector Unit, give 4 units Blood glucose 120-150 : GIVE 5 UNITS Blood glucose 150 - 180 add 1 unit, give 6 units Blood glucose 181 - 210 add 2 units, given 7 units Blood glucose 211 - 240 add 3 units, give 8 units Blood glucose 241 - 300 add 4 units, give 9 units Blood glucose > 300, add 5 Units. Given 10 units, recheck in 3 hours. If blood glucose >300 seek medical attention Lancets Yes [id number] Use as Uni vers (ACCU-CHEK 6-08 directed, ity of FASTCLIX 00:00: DX:250.01, Alirio as LANCING 00 six times Medical DEV) Misc per day. Branch hydrALAZINE Yes [id number] 10mg Take 1 [facility] 10 mg 6-08 tablet by ity of tablet 00:00: mouth 3 [place] 00 (three) Medical times Branch daily as needed (Take 1 Tablet TID PRN if BP >160/90). rosuvastati Yes [id number] 20mg Take 1 [facility] n 20 mg 6-08 tablet by ity of tablet 00:00: mouth at [place] 00 bedtime. Medical Branch nicotine Yes [id number] 1{patch Apply 1 [facility] mg/24 hr 6-08 } Patch to ity of patch 00:00: area(s) [place] 00 daily. Medical Apply 21mg Branch patch daily x 6 weeks; then apply 14mf patch daily x 2 weeks; then apply 7mg patch daily x 2 weeks. Stop smoking on initiation of therapy nicotine 7 Yes [id number] 1{patch Apply 1 [facility] mg/24 hr 6-08 } Patch to ity of patch 00:00: area(s) [place] 00 every 24 Medical (twenty-fo Branch ur) hours. Apply 21mg patch daily x 6 weeks; then apply 14mf patch daily x 2 weeks; then apply 7mg patch daily x 2 weeks. Stop smoking on initiation of therapy nicotine 14 Yes [id number] 1{patch Apply 1 [facility] mg/24 hr 6-08 } Patch to ity of patch 00:00: area(s) [place] 00 every 24 Medical (twenty-fo Branch ur) hours. Apply 21mg patch daily x 6 weeks; then apply 14mf patch daily x 2 weeks; then apply 7mg patch daily x 2 weeks. Stop smoking on initiation of therapy ARIPiprazol Yes [id number] 10mg Take 1 [facility] e 10 mg 6-08 tablet by ity of tablet 00:00: mouth [place] 00 daily. Medical Branch OXcarbazepi Yes [id number] 300mg Take 1 [facility] ne 300 mg 6-08 tablet by ity o f tablet 00:00: mouth 2 [place] 00 (two) Medical times Branch daily. PARoxetine Yes [id number] 40mg Take 1 U nivers mesylate 40 6-08 tablet by ity of mg tablet 00:00: mouth [place] 00 every Medical morning. Branch lancets Yes [id number] Use 3X Uni vers (FREESTYLE 6-08 daily. Dx ity of LANCETS) 28 00:00: Code E11.9 [place] gauge Misc 00 Medical Branch insulin Yes [id number] 60U inject 60 [facility] glargine 6-08 Units ity of U-300 conc 00:00: under the [place] (TOUJEO MAX 00 skin 2 Medica l U-300 (two) Branch SOLOSTAR) times 300 unit/mL daily (3 mL) InPn before breakfast and dinner. insulin Yes [id number] Blood Univ ers lispro 6-08 glucose < ity of (HUMALOG 00:00: 90: do not [place] as KWIKPEN 00 use Blood Medical INSULIN) glucose Branch 100 unit/mL 90-120, pen subtract 1 injector Unit, give 4 units Blood glucose 120-150 : GIVE 5 UNITS Blood glucose 150 - 180 add 1 unit, give 6 units Blood glucose 181 - 210 add 2 units, given 7 units Blood glucose 211 - 240 add 3 units, give 8 units Blood glucose 241 - 300 add 4 units, give 9 units Blood glucose > 300, add 5 Units. Given 10 units, recheck in 3 hours. If blood glucose >300 seek medical attention Lancets Yes [id number] Use as Uni vers (ACCU-CHEK 6-08 directed, ity of FASTCLIX 00:00: DX:250.01, [place] as LANCING 00 six times Medical DEV) Misc per day. Branch hydrALAZINE Yes [id number] 10mg Take 1 [facility] 10 mg 6-08 tablet by ity of tablet 00:00: mouth 3 [place] 00 (three) Medical times Branch daily as needed (Take 1 Tablet TID PRN if BP >160/90). rosuvastati Yes [id number] 20mg Take 1 [facility] n 20 mg 6-08 tablet by ity of tablet 00:00: mouth at [place] 00 bedtime. Medical Branch nicotine 21 Yes [id number] 1{patch Apply 1 [facility] mg/24 hr 6-08 } Patch to ity of patch 00:00: area(s) [place] 00 daily. Medical Apply 21mg Branch patch daily x 6 weeks; then apply 14mf patch daily x 2 weeks; then apply 7mg patch daily x 2 weeks. Stop smoking on initiation of therapy nicotine 7 Yes [id number] 1{patch Apply 1 [facility] mg/24 hr 6-08 } Patch to ity of patch 00:00: area(s) [place] 00 every 24 Medical (twenty-fo Branch ur) hours. Apply 21mg patch daily x 6 weeks; then apply 14mf patch daily x 2 weeks; then apply 7mg patch daily x 2 weeks. Stop smoking on initiation of therapy nicotine 14 Yes [id number] 1{patch Apply 1 [facility] mg/24 hr 6-08 } Patch to ity of patch 00:00: area(s) [place] 00 every 24 Medical (twenty-fo Branch ur) hours. Apply 21mg patch daily x 6 weeks; then apply 14mf patch daily x 2 weeks; then apply 7mg patch daily x 2 weeks. Stop smoking on initiation of therapy ARIPiprazol Yes [id number] 10mg Take 1 [facility] e 10 mg 6-08 tablet by ity of tablet 00:00: mouth [place] 00 daily. Medical Branch OXcarbazepi Yes [id number] 300mg Take 1 [facility] ne 300 mg 6-08 tablet by ity o f tablet 00:00: mouth 2 [place] 00 (two) Medical times Branch daily. PARoxetine Yes [id number] 40mg Take 1 U nivers mesylate 40 6-08 tablet by ity of mg tablet 00:00: mouth [place] 00 every Medical morning. Branch lancets Yes [id number] Use 3X Uni vers (FREESTYLE 6-08 daily. Dx ity of LANCETS) 28 00:00: Code E11.9 [place] gauge Misc 00 Medical Branch insulin Yes [id number] 60U inject 60 [facility] glargine 6-08 Units ity of U-300 conc 00:00: under the [place] (TOUJEO MAX 00 skin 2 Medica l U-300 (two) Branch SOLOSTAR) times 300 unit/mL daily (3 mL) InPn before breakfast and dinner. insulin Yes [id number] Blood Univ ers lispro 6-08 glucose < ity of (HUMALOG 00:00: 90: do not [place] as KWIKPEN 00 use Blood Medical INSULIN) glucose Branch 100 unit/mL 90-120, pen subtract 1 injector Unit, give 4 units Blood glucose 120-150 : GIVE 5 UNITS Blood glucose 150 - 180 add 1 unit, give 6 units Blood glucose 181 - 210 add 2 units, given 7 units Blood glucose 211 - 240 add 3 units, give 8 units Blood glucose 241 - 300 add 4 units, give 9 units Blood glucose > 300, add 5 Units. Given 10 units, recheck in 3 hours. If blood glucose >300 seek medical attention Lancets Yes [id number] Use as [facility] vers (ACCU-CHEK 6-08 directed, ity of FASTCLIX 00:00: DX:250.01, [place] as LANCING 00 six times Medical DEV) Misc per day. Branch hydrALAZINE Yes [id number] 10mg Take 1 [facility] 10 mg 6-08 tablet by ity of tablet 00:00: mouth 3 00 (three) Medical times Branch daily as needed (Take 1 Tablet TID PRN if BP >160/90). rosuvastati Yes [id number] 20mg Take 1 [facility] n 20 mg 6-08 tablet by ity of tablet 00:00: mouth at [place] 00 bedtime. Medical Branch nicotine 21 Yes [id number] 1{patch Apply 1 [facility] mg/24 hr 6-08 } Patch to ity of patch 00:00: area(s) [place] 00 daily. Medical Apply 21mg Branch patch daily x 6 weeks; then apply 14mf patch daily x 2 weeks; then apply 7mg patch daily x 2 weeks. Stop smoking on initiation of therapy nicotine 7 Yes [id number] 1{patch Apply 1 [facility] mg/24 hr 6-08 } Patch to ity of patch 00:00: area(s) [place] 00 every 24 Medical (twenty-fo Branch ur) hours. Apply 21mg patch daily x 6 weeks; then apply 14mf patch daily x 2 weeks; then apply 7mg patch daily x 2 weeks. Stop smoking on initiation of therapy nicotine 14 Yes [id number] 1{patch Apply 1 [facility] mg/24 hr 6-08 } Patch to ity of patch 00:00: area(s) [place] 00 every 24 Medical (twenty-fo Branch ur) hours. Apply 21mg patch daily x 6 weeks; then apply 14mf patch daily x 2 weeks; then apply 7mg patch daily x 2 weeks. Stop smoking on initiation of therapy ARIPiprazol Yes [id number] 10mg Take 1 [facility] e 10 mg 6-08 tablet by ity of tablet 00:00: mouth [place] 00 daily. Medical Branch OXcarbazepi Yes [id number] 300mg Take 1 [facility] ne 300 mg 6-08 tablet by ity o f tablet 00:00: mouth 2 [place] 00 (two) Medical times Branch daily. PARoxetine Yes [id number] 40mg Take 1 U nivers mesylate 40 6-08 tablet by ity of mg tablet 00:00: mouth [place] 00 every Medical morning. Branch lancets Yes [id number] Use 3X Uni vers (FREESTYLE 6-08 daily. Dx ity of LANCETS) 28 00:00: Code E11.9 [place] gauge Misc 00 Medical Branch insulin Yes [id number] 60U inject 60 [facility] glargine 6-08 Units ity of U-300 conc 00:00: under the [place] (TOUJE[place] MAX 00 skin 2 Medica l U-300 (two) [facility] times 300 unit/mL daily (3 mL) InPn before breakfast and dinner. insulin Yes [id number] Blood Univ ers lispro 6-08 glucose < ity of (HUMALOG 00:00: 90: do not [place] as KWIKPEN 00 use Blood Medical INSULIN) glucose Branch 100 unit/mL 90-120, pen subtract 1 injector Unit, give 4 units Blood glucose 120-150 : GIVE 5 UNITS Blood glucose 150 - 180 add 1 unit, give 6 units Blood glucose 181 - 210 add 2 units, given 7 units Blood glucose 211 - 240 add 3 units, give 8 units Blood glucose 241 - 300 add 4 units, give 9 units Blood glucose > 300, add 5 Units. Given 10 units, recheck in 3 hours. If blood glucose >300 seek medical attention Lancets Yes [id number] Use as [facility] vers (ACCU-CHEK 6-08 directed, ity of FASTCLIX 00:00: DX:250.01, [place] as LANCING 00 six times Medical DEV) Misc per day. Branch hydrALAZINE Yes [id number] 10mg Take 1 [facility] 10 mg 6-08 tablet by ity of tablet 00:00: mouth 3 [place] 00 (three) Medical times Branch daily as needed (Take 1 Tablet TID PRN if BP >160/90). rosuvastati Yes [id number] 20mg Take 1 [facility] n 20 mg 6-08 tablet by ity of tablet 00:00: mouth at [place] 00 bedtime. Medical Branch nicotine Yes [id number] 1{patch Apply 1 [facility] mg/24 hr 6-08 } Patch to ity of patch 00:00: area(s) [place] 00 daily. Medical Apply 21mg Branch patch daily x 6 weeks; then apply 14mf patch daily x 2 weeks; then apply 7mg patch daily x 2 weeks. Stop smoking on initiation of therapy nicotine 7 Yes [id number] 1{patch Apply 1 [facility] mg/24 hr 6-08 } Patch to ity of patch 00:00: area(s) [place] 00 every 24 Medical (twenty-fo Branch ur) hours. Apply 21mg patch daily x 6 weeks; then apply 14mf patch daily x 2 weeks; then apply 7mg patch daily x 2 weeks. Stop smoking on initiation of therapy nicotine 14 Yes [id number] 1{patch Apply 1 [facility] mg/24 hr 6-08 } Patch to ity of patch 00:00: area(s) [place] 00 every 24 Medical (twenty-fo Branch ur) hours. Apply 21mg patch daily x 6 weeks; then apply 14mf patch daily x 2 weeks; then apply 7mg patch daily x 2 weeks. Stop smoking on initiation of therapy OXcarbazepi Yes [id number] 300mg Take 1 [facility] ne 300 mg 6-08 tablet by ity o f tablet 00:00: mouth 2 [place] 00 (two) Medical times Branch daily. lancets Yes [id number] Use 3X Uni vers (FREESTYLE 6-08 daily. Dx ity of LANCETS) 28 00:00: Code E11.9 [place] gauge Misc 00 Medical Branch insulin Yes [id number] 60U inject 60 [facility] glargine 6-08 Units ity of U-300 conc 00:00: under the [place] (TOUJEO MAX 00 skin 2 Medica l U-300 (two) Branch SOLOSTAR) times 300 unit/mL daily (3 mL) InPn before breakfast and dinner. insulin Yes [id number] Blood Univ ers lispro 6-08 glucose < ity of (HUMALOG 00:00: 90: do not [place] as KWIKPEN 00 use Blood Medical INSULIN) glucose Branch 100 unit/mL 90-120, pen subtract 1 injector Unit, give 4 units Blood glucose 120-150 : GIVE 5 UNITS Blood glucose 150 - 180 add 1 unit, give 6 units Blood glucose 181 - 210 add 2 units, given 7 units Blood glucose 211 - 240 add 3 units, give 8 units Blood glucose 241 - 300 add 4 units, give 9 units Blood glucose > 300, add 5 Units. Given 10 units, recheck in 3 hours. If blood glucose >300 seek medical attention Lancets Yes [id number] Use as [facility] vers (ACCU-CHEK 6-08 directed, ity of FASTCLIX 00:00: DX:250.01, [place] as LANCING 00 six times Medical DEV) Misc per day. Branch hydrALAZINE Yes [id number] 10mg Take 1 [facility] 10 mg 6-08 tablet by ity of tablet 00:00: mouth 3 [place] 00 (three) Medical times Branch daily as needed (Take 1 Tablet TID PRN if BP >160/90). rosuvastati Yes [id number] 20mg Take 1 [facility] n 20 mg 6-08 tablet by ity of tablet 00:00: mouth at [place] 00 bedtime. Medical Branch nicotine 21 Yes [id number] 1{patch Apply 1 [facility] mg/24 hr 6-08 } Patch to ity of patch 00:00: area(s) [place] 00 daily. Medical Apply 21mg Branch patch daily x 6 weeks; then apply 14mf patch daily x 2 weeks; then apply 7mg patch daily x 2 weeks. Stop smoking on initiation of therapy nicotine 7 2020- Yes [id number] 1{patch Apply 1 [facility] mg/24 hr 6-08 } Patch to ity of patch 00:00: area(s) [place] 00 every 24 Medical (twenty-fo Branch ur) hours. Apply 21mg patch daily x 6 weeks; then apply 14mf patch daily x 2 weeks; then apply 7mg patch daily x 2 weeks. Stop smoking on initiation of therapy nicotine 14 Yes [id number] 1{patch Apply 1 [facility] mg/24 hr 6-08 } Patch to ity of patch 00:00: area(s) [place] 00 every 24 Medical (twenty-fo Branch ur) hours. Apply 21mg patch daily x 6 weeks; then apply 14mf patch daily x 2 weeks; then apply 7mg patch daily x 2 weeks. Stop smoking on initiation of therapy OXcarbazepi Yes [id number] 300mg Take 1 [facility] ne 300 mg 6-08 tablet by ity o f tablet 00:00: mouth 2 [place] 00 (two) Medical times Branch daily. lancets Yes [id number] Use 3X Uni vers (FREESTYLE 6-08 daily. Dx ity of LANCETS) 28 00:00: Code E11.9 [facility] Misc 00 Medical Branch insulin Yes [id number] 60U inject 60 [facility] glargine 6-08 Units ity of U-300 conc 00:00: under the [place] (TOUJE[place] MAX 00 skin 2 Medica l U-300 (two) Branch SOLOSTAR) times 300 unit/mL daily (3 mL) InPn before breakfast and dinner. insulin Yes [id number] Blood Univ ers lispro 6-08 glucose < ity of (HUMALOG 00:00: 90: do not [place] as KWIKPEN 00 use Blood Medical INSULIN) glucose Branch 100 unit/mL 90-120, pen subtract 1 injector Unit, give 4 units Blood glucose 120-150 : GIVE 5 UNITS Blood glucose 150 - 180 add 1 unit, give 6 units Blood glucose 181 - 210 add 2 units, given 7 units Blood glucose 211 - 240 add 3 units, give 8 units Blood glucose 241 - 300 add 4 units, give 9 units Blood glucose > 300, add 5 Units. Given 10 units, recheck in 3 hours. If blood glucose >300 seek medical attention Lancets Yes [id number] Use as Uni vers (ACCU-CHEK 6-08 directed, ity of FASTCLIX 00:00: DX:250.01, [place] as LANCING 00 six times Medical DEV) Misc per day. Branch hydrALAZINE Yes [id number] 10mg Take 1 [facility] 10 mg 6-08 tablet by ity of tablet 00:00: mouth 3 00 (three) Medical times Branch daily as needed (Take 1 Tablet TID PRN if BP >160/90). rosuvastati Yes [id number] 20mg Take 1 [facility] n 20 mg 6-08 tablet by ity of tablet 00:00: mouth at [place] 00 bedtime. Medical Branch nicotine Yes [id number] 1{patch Apply 1 [facility] mg/24 hr 6-08 } Patch to ity of patch 00:00: area(s) [place] 00 daily. Medical Apply 21mg Branch patch daily x 6 weeks; then apply 14mf patch daily x 2 weeks; then apply 7mg patch daily x 2 weeks. Stop smoking on initiation of therapy nicotine 7 Yes [id number] 1{patch Apply 1 [facility] mg/24 hr 6-08 } Patch to ity of patch 00:00: area(s) [place] 00 every 24 Medical (twenty-fo Branch ur) hours. Apply 21mg patch daily x 6 weeks; then apply 14mf patch daily x 2 weeks; then apply 7mg patch daily x 2 weeks. Stop smoking on initiation of therapy nicotine 14 Yes [id number] 1{patch Apply 1 [facility] mg/24 hr 6-08 } Patch to ity of patch 00:00: area(s) [place] 00 every 24 Medical (twenty-fo Branch ur) hours. Apply 21mg patch daily x 6 weeks; then apply 14mf patch daily x 2 weeks; then apply 7mg patch daily x 2 weeks. Stop smoking on initiation of therapy OXcarbazepi Yes [id number] 300mg Take 1 [facility] ne 300 mg 6-08 tablet by ity o f tablet 00:00: mouth 2 [place] 00 (two) Medical times Branch daily. lancets Yes [id number] Use 3X Uni vers (FREESTYLE 6-08 daily. Dx ity of LANCETS) 28 00:00: Code E11.9 [place] gauge Misc 00 Medical Branch insulin Yes [id number] 60U inject 60 [facility] glargine 6-08 Units ity of U-300 conc 00:00: under the [place] (TOUJE[place] MAX 00 skin 2 Medica l U-300 (two) Branch SOLOSTAR) times 300 unit/mL daily (3 mL) InPn before breakfast and dinner. insulin Yes [id number] Blood Univ ers lispro 6-08 glucose < ity of (HUMALOG 00:00: 90: do not [place] as KWIKPEN 00 use Blood Medical INSULIN) glucose Branch 100 unit/mL 90-120, pen subtract 1 injector Unit, give 4 units Blood glucose 120-150 : GIVE 5 UNITS Blood glucose 150 - 180 add 1 unit, give 6 units Blood glucose 181 - 210 add 2 units, given 7 units Blood glucose 211 - 240 add 3 units, give 8 units Blood glucose 241 - 300 add 4 units, give 9 units Blood glucose > 300, add 5 Units. Given 10 units, recheck in 3 hours. If blood glucose >300 seek medical attention Lancets Yes [id number] Use as Uni vers (ACCU-CHEK 6-08 directed, ity of FASTCLIX 00:00: DX:250.01, [place] as LANCING 00 six times Medical DEV) Misc per day. Branch hydrALAZINE Yes [id number] 10mg Take 1 [facility] 10 mg 6-08 tablet by ity of tablet 00:00: mouth 3 [place] 00 (three) Medical times Branch daily as needed (Take 1 Tablet TID PRN if BP >160/90). rosuvastati Yes [id number] 20mg Take 1 [facility] n 20 mg 6-08 tablet by ity of tablet 00:00: mouth at [place] [address] bedtime. Medical Branch nicotine 21 Yes [id number] 1{patch Apply 1 [facility] mg/24 hr 6-08 } Patch to ity of patch 00:00: area(s) [place] 00 daily. Medical Apply 21mg Branch patch daily x 6 weeks; then apply 14mf patch daily x 2 weeks; then apply 7mg patch daily x 2 weeks. Stop smoking on initiation of therapy nicotine 7 Yes [id number] 1{patch Apply 1 [facility] mg/24 hr 6-08 } Patch to ity of patch 00:00: area(s) [place] 00 every 24 Medical (twenty-fo Branch ur) hours. Apply 21mg patch daily x 6 weeks; then apply 14mf patch daily x 2 weeks; then apply 7mg patch daily x 2 weeks. Stop smoking on initiation of therapy nicotine 14 Yes [id number] 1{patch Apply 1 [facility] mg/24 hr 6-08 } Patch to ity of patch 00:00: area(s) [place] 00 every 24 Medical (twenty-fo Branch ur) hours. Apply 21mg patch daily x 6 weeks; then apply 14mf patch daily x 2 weeks; then apply 7mg patch daily x 2 weeks. Stop smoking on initiation of therapy OXcarbazepi Yes [id number] 300mg Take 1 [facility] ne 300 mg 6-08 tablet by ity o f tablet 00:00: mouth 2 [place] 00 (two) Medical times Branch daily. lancets Yes [id number] Use 3X Uni vers (FREESTYLE 6-08 daily. Dx ity of LANCETS) 28 00:00: Code E11.9 [facility] Mis 00 Medical Branch insulin Yes [id number] 60U inject 60 [facility] glargine 6-08 Units ity of U-300 conc 00:00: under the [place] ([place] MAX 00 skin 2 Medica l U-300 (two) Branch [facility]) times 300 unit/mL daily (3 mL) InPn before breakfast and dinner. insulin Yes [id number] Blood Univ ers lispro 6-08 glucose < ity of (HUMALOG 00:00: 90: do not [place] as KWIKPEN 00 use Blood Medical INSULIN) glucose Branch 100 unit/mL 90-120, pen subtract 1 injector Unit, give 4 units Blood glucose 120-150 : GIVE 5 UNITS Blood glucose 150 - 180 add 1 unit, give 6 units Blood glucose 181 - 210 add 2 units, given 7 units Blood glucose 211 - 240 add 3 units, give 8 units Blood glucose 241 - 300 add 4 units, give 9 units Blood glucose > 300, add 5 Units. Given 10 units, recheck in 3 hours. If blood glucose >300 seek medical attention Lancets Yes [id number] Use as Uni vers (ACCU-CHEK 6-08 directed, ity of FASTCLIX 00:00: DX:250.01, [place] as [place] 00 six times Medical DEV) Misc per day. Branch hydrALAZINE Yes [id number] 10mg Take 1 [facility] 10 mg 6-08 tablet by ity of tablet 00:00: mouth 3 00 (three) Medical times Branch daily as needed (Take 1 Tablet TID PRN if BP >160/90). rosuvastati Yes [id number] 20mg Take 1 [facility] n 20 mg 6-08 tablet by ity of tablet 00:00: mouth at [place] 00 bedtime. Medical Branch nicotine Yes [id number] 1{patch Apply 1 [facility] mg/24 hr 6-08 } Patch to ity of patch 00:00: area(s) [place] 00 daily. Medical Apply 21mg Branch patch daily x 6 weeks; then apply 14mf patch daily x 2 weeks; then apply 7mg patch daily x 2 weeks. Stop smoking on initiation of therapy nicotine 7 Yes [id number] 1{patch Apply 1 [facility] mg/24 hr 6-08 } Patch to ity of patch 00:00: area(s) [place] 00 every 24 Medical (twenty-fo Branch ur) hours. Apply 21mg patch daily x 6 weeks; then apply 14mf patch daily x 2 weeks; then apply 7mg patch daily x 2 weeks. Stop smoking on initiation of therapy nicotine 14 Yes [id number] 1{patch Apply 1 [facility] mg/24 hr 6-08 } Patch to ity of patch 00:00: area(s) [place] 00 every 24 Medical (twenty-fo Branch ur) hours. Apply 21mg patch daily x 6 weeks; then apply 14mf patch daily x 2 weeks; then apply 7mg patch daily x 2 weeks. Stop smoking on initiation of therapy OXcarbazepi Yes [id number] 300mg Take 1 [facility] ne 300 mg 6-08 tablet by ity o f tablet 00:00: mouth 2 [place] (two) Medical times Branch daily. lancets Yes [id number] Use 3X Uni vers (FREESTYLE 6-08 daily. Dx ity of LANCETS) 28 00:00: Code E11.9 [place] gauge Misc 00 Medical Branch insulin Yes [id number] 60U inject 60 [facility] glargine 6-08 Units ity of U-300 conc 00:00: under the [place] ([place]JE[place] MAX 00 skin 2 Medica l U-300 (two) Branch SOLOSTAR) times 300 unit/mL daily (3 mL) InPn before breakfast and dinner. insulin Yes [id number] Blood Univ ers lispro 6-08 glucose < ity of (HUMALOG 00:00: 90: do not [place] as KWIKPEN 00 use Blood Medical INSULIN) glucose Branch 100 unit/mL 90-120, pen subtract 1 injector Unit, give 4 units Blood glucose 120-150 : GIVE 5 UNITS Blood glucose 150 - 180 add 1 unit, give 6 units Blood glucose 181 - 210 add 2 units, given 7 units Blood glucose 211 - 240 add 3 units, give 8 units Blood glucose 241 - 300 add 4 units, give 9 units Blood glucose > 300, add 5 Units. Given 10 units, recheck in 3 hours. If blood glucose >300 seek medical attention Lancets Yes [id number] Use as Uni vers (ACCU-CHEK 6-08 directed, ity of FASTCLIX 00:00: DX:250.01, [place] as [place] 00 six times Medical DEV) Misc per day. Branch hydrALAZINE Yes [id number] 10mg Take 1 [facility] 10 mg 6-08 tablet by ity of tablet 00:00: mouth 3 [place] 00 (three) Medical times Branch daily as needed (Take 1 Tablet TID PRN if BP >160/90). rosuvastati Yes [id number] 20mg Take 1 [facility] n 20 mg 6-08 tablet by ity of tablet 00:00: mouth at [place] 00 bedtime. Medical Branch nicotine 21 Yes [id number] 1{patch Apply 1 [facility] mg/24 hr 6-08 } Patch to ity of patch 00:00: area(s) [place] 00 daily. Medical Apply 21mg Branch patch daily x 6 weeks; then apply 14mf patch daily x 2 weeks; then apply 7mg patch daily x 2 weeks. Stop smoking on initiation of therapy nicotine 7 Yes [id number] 1{patch Apply 1 [facility] mg/24 hr 6-08 } Patch to ity of patch 00:00: area(s) [place] 00 every 24 Medical (twenty-fo Branch ur) hours. Apply 21mg patch daily x 6 weeks; then apply 14mf patch daily x 2 weeks; then apply 7mg patch daily x 2 weeks. Stop smoking on initiation of therapy nicotine 14 Yes [id number] 1{patch Apply 1 [facility] mg/24 hr 6-08 } Patch to ity of patch 00:00: area(s) [place] 00 every 24 Medical (twenty-fo Branch ur) hours. Apply 21mg patch daily x 6 weeks; then apply 14mf patch daily x 2 weeks; then apply 7mg patch daily x 2 weeks. Stop smoking on initiation of therapy lancets Yes [id number] Use 3X Uni vers (FREESTYLE 6-08 daily. Dx ity of LANCETS) 28 00:00: Code E11.9 [place] [facility] Misc 00 Medical Branch insulin Yes [id number] 60U inject 60 [facility] glargine 6-08 Units ity of U-300 conc 00:00: under the [place] ([place]JE[place] MAX 00 skin 2 Medica l U-300 (two) Branch [facility]) times 300 unit/mL daily (3 mL) InPn before breakfast and dinner. insulin Yes [id number] Blood Univ ers lispro 6-08 glucose < ity of (HUMALOG 00:00: 90: do not [place] as KWIKPEN 00 use Blood Medical INSULIN) glucose Branch 100 unit/mL 90-120, pen subtract 1 injector Unit, give 4 units Blood glucose 120-150 : GIVE 5 UNITS Blood glucose 150 - 180 add 1 unit, give 6 units Blood glucose 181 - 210 add 2 units, given 7 units Blood glucose 211 - 240 add 3 units, give 8 units Blood glucose 241 - 300 add 4 units, give 9 units Blood glucose > 300, add 5 Units. Given 10 units, recheck in 3 hours. If blood glucose >300 seek medical attention Lancets Yes [id number] Use as Uni vers (ACCU-CHEK 6-08 directed, ity of FASTCLIX 00:00: DX:250.01, [place] as [place] 00 six times Medical DEV) Misc per day. Branch hydrALAZINE Yes [id number] 10mg Take 1 [facility] 10 mg 6-08 tablet by ity of tablet 00:00: mouth 3 [place] 00 (three) Medical times Branch daily as needed (Take 1 Tablet TID PRN if BP >160/90). rosuvastati Yes [id number] 20mg Take 1 [facility] n 20 mg 6-08 tablet by ity of tablet 00:00: mouth at [place] 00 bedtime. Medical Branch nicotine Yes [id number] 1{patch Apply 1 [facility] mg/24 hr 6-08 } Patch to ity of patch 00:00: area(s) [place] 00 daily. Medical Apply 21mg Branch patch daily x 6 weeks; then apply 14mf patch daily x 2 weeks; then apply 7mg patch daily x 2 weeks. Stop smoking on initiation of therapy nicotine 7 Yes [id number] 1{patch Apply 1 [facility] mg/24 hr 6-08 } Patch to ity of patch 00:00: area(s) [place] 00 every 24 Medical (twenty-fo Branch ur) hours. Apply 21mg patch daily x 6 weeks; then apply 14mf patch daily x 2 weeks; then apply 7mg patch daily x 2 weeks. Stop smoking on initiation of therapy nicotine 14 Yes [id number] 1{patch Apply 1 [facility] mg/24 hr 6-08 } Patch to ity of patch 00:00: area(s) [place] 00 every 24 Medical (twenty-fo Branch ur) hours. Apply 21mg patch daily x 6 weeks; then apply 14mf patch daily x 2 weeks; then apply 7mg patch daily x 2 weeks. Stop smoking on initiation of therapy lancets Yes [id number] Use 3X Uni vers (FREESTYLE 6-08 daily. Dx ity of LANCETS) 28 00:00: Code E11.9 [place] gauge Misc 00 Medical Branch insulin Yes [id number] 60U inject 60 [facility] glargine 6-08 Units ity of U-300 conc 00:00: [place] (TOUJEO MAX 00 skin 2 Medica l U-300 (two) Branch SOLOSTAR) times 300 unit/mL daily (3 mL) InPn before breakfast and dinner. insulin Yes [id number] Blood Univ ers lispro 6-08 glucose < ity of (HUMALOG 00:00: 90: do not [place] as KWIKPEN 00 use Blood Medical INSULIN) glucose Branch 100 unit/mL 90-120, pen subtract 1 injector Unit, give 4 units Blood glucose 120-150 : GIVE 5 UNITS Blood glucose 150 - 180 add 1 unit, give 6 units Blood glucose 181 - 210 add 2 units, given 7 units Blood glucose 211 - 240 add 3 units, give 8 units Blood glucose 241 - 300 add 4 units, give 9 units Blood glucose > 300, add 5 Units. Given 10 units, recheck in 3 hours. If blood glucose >300 seek medical attention Lancets Yes [id number] Use as Uni vers (ACCU-CHEK 6-08 directed, ity of FASTCLIX 00:00: DX:250.01, [place] as LANC[place] 00 six times Medical DEV) Misc per day. Branch hydrALAZINE Yes [id number] 10mg Take 1 [facility] 10 mg 6-08 tablet by ity of tablet 00:00: mouth 3 [place] 00 (three) Medical times Branch daily as needed (Take 1 Tablet TID PRN if BP >160/90). rosuvastati Yes [id number] 20mg Take 1 [facility] n 20 mg 6-08 tablet by ity of tablet 00:00: mouth at [place] 00 bedtime. Medical Branch nicotine 21 Yes [id number] 1{patch Apply 1 [facility] mg/24 hr 6-08 } Patch to ity of patch 00:00: area(s) [place] 00 daily. Medical Apply 21mg Branch patch daily x 6 weeks; then apply 14mf patch daily x 2 weeks; then apply 7mg patch daily x 2 weeks. Stop smoking on initiation of therapy nicotine 7 Yes [id number] 1{patch Apply 1 [facility] mg/24 hr 6-08 } Patch to ity of patch 00:00: area(s) [place] 00 every 24 Medical (twenty-fo Branch ur) hours. Apply 21mg patch daily x 6 weeks; then apply 14mf patch daily x 2 weeks; then apply 7mg patch daily x 2 weeks. Stop smoking on initiation of therapy nicotine 14 2020- Yes [id number] 1{patch Apply 1 [facility] mg/24 hr 09-12 } Patch to ity of patch 00:00: area(s) [place] 00 every 24 Medical (twenty-fo Branch ur) hours. Apply 21mg patch daily x 6 weeks; then apply 14mf patch daily x 2 weeks; then apply 7mg patch daily x 2 weeks. Stop smoking on initiation of therapy OXcarbazepi 2020- No [id number] 300mg Take 1 [facility] ne 300 mg 09-12 tablet by ity of tablet 00:00: 00:00 mouth 2 [place] 00 :00 (two) Medical times Branch daily. OXcarbazepi 2020- No [id number] 300mg Take 1 [facility] ne 300 mg 09-12 tablet by ity of tablet 00:00: 00:00 mouth 2 [place] 00 :00 (two) Medical times Branch daily. ARIPiprazol 2020- No [id number] 10mg Take 1 Univers e 10 mg 09-12 tablet by ity of tablet 00:00: 00:00 mouth [place] 00 :00 daily. Medical Branch PARoxetine 2020- No [id number] 40mg Take 1 [facility] mesylate 40 09-12 tablet by it y of mg tablet 00:00: 00:00 mouth [place] 00 :00 every Medical morning. Branch pregabalin 2020- No [id number] 75mg Take 1 [facility] 75 mg 09-12 capsule by ity of capsule 00:00: 00:00 mouth 3 [place] 00 :00 (three) Medical times Branch daily. 1 pill bid for a week. If pain not better than 2 pills bid. pregabalin 2020- No [id number] 75mg Take 1 [facility] 75 mg 09-12 capsule by ity of capsule 00:00: 00:00 mouth 3 [place] 00 :00 (three) Medical times Branch daily. 1 pill bid for a week. If pain not better than 2 pills bid. pregabalin 2020- No [id number] 75mg Take 1 [facility] 75 mg 09-12 capsule by ity of capsule 00:00: 00:00 mouth 3 [place] 00 :00 (three) Medical times Branch daily. 1 pill bid for a week. If pain not better than 2 pills bid. pregabalin 2020- No [id number] 75mg Take 1 [facility] 75 mg 6-11 10-22 capsule by ity of capsule 00:00: 00:00 mouth 3 [place] 00 :00 (three) Medical times Branch daily. 1 pill bid for a week. If pain not better than 2 pills bid. pregabalin 2020- No [id number] 75mg Take 1 [facility] 75 mg 6- 06-22 capsule by ity of capsule 00:00: 00:00 mouth 3 [place] 00 :00 (three) Medical times Branch daily. 1 pill bid for a week. If pain not better than 2 pills bid. pregabalin 2020- No [id number] 75mg Take 1 [facility] 75 mg 6-11 10-22 capsule by ity of capsule 00:00: 00:00 mouth 3 [place] 00 :00 (three) Medical times Branch daily. 1 pill bid for a week. If pain not better than 2 pills bid. PAROXETINE Yes 40mg Take 40 mg U nivers HCL ORAL 7-04 by mouth ity of 21:37: daily. [address] OXcarbazepi Yes 300mg Take 300 U nivers ne 300 mg 7-04 mg by ity of tablet 21:37: mouth 2 [place] [id number] (two) Medical times Branch daily. ARIPiprazol Yes 10mg Take 10 mg Univers e 10 mg 7-04 by mouth ity of tablet 21:37: daily. [address] insulin 2018-0 Yes inject Univers glulisine 7-04 under the ity o f (APIDRA SC) 21:37: skin. [address] lisinopril- 2018-0 Yes 1{tbl} Take 1 Un jimmy hydrochloro 7-04 tablet by ity of thiazide 21:37: mouth [place] 20-12.5 mg 52 daily. Medical per tablet Branch PAROXETINE 0 Yes 40mg Take 40 mg U nivers HCL ORAL 7-04 by mouth ity of 21:37: daily. [address] insulin 0 Yes inject Univers glulisine 7-04 under the ity o f (APIDRA SC) 21:37: skin. [address] lisinopril- Yes 1{tbl} Take 1 Un jimmy hydrochloro 7-04 tablet by ity of thiazide 21:37: mouth [place] 20-12.5 mg 52 daily. Medical per tablet Branch PAROXETINE Yes 40mg Take 40 mg U nivers HCL ORAL 7-04 by mouth ity of 21:37: daily. [address] insulin Yes inject Univers glulisine 7-04 under the ity o f (APIDRA SC) 21:37: skin. [address] lisinopril- Yes 1{tbl} Take 1 Un jimmy hydrochloro 7-04 tablet by ity of thiazide 21:37: mouth [place] 20-12.5 mg 52 daily. Medical per tablet Branch PAROXETINE Yes 40mg Take 40 mg U nivers HCL ORAL 7-04 by mouth ity of 21:37: daily. [address] insulin Yes inject Univers glulisine 7-04 under the ity o f (APIDRA SC) 21:37: skin. [address] lisinopril- Yes 1{tbl} Take 1 Un jimmy hydrochloro 7-04 tablet by ity of thiazide 21:37: mouth [place] 20-12.5 mg 52 daily. Medical per tablet Branch PAROXETINE Yes 40mg Take 40 mg U nivers HCL ORAL 7-04 by mouth ity of 21:37: daily. [address] insulin Yes inject Univers glulisine 7-04 under the ity o f (APIDRA SC) 21:37: skin. [address] lisinopril- Yes 1{tbl} Take 1 Un jimmy hydrochloro 7-04 tablet by ity of thiazide 21:37: mouth [place] 20-12.5 mg 52 daily. Medical per tablet Branch PAROXETINE Yes 40mg Take 40 mg U nivers HCL ORAL 7-04 by mouth ity of 21:37: daily. [address] insulin Yes inject Univers glulisine 7-04 under the ity o f (APIDRA SC) 21:37: skin. [address] PAROXETINE Yes 40mg Take 40 mg U nivers HCL ORAL 7-04 by mouth ity of 21:37: daily. [address] insulin [id number] Yes inject Univers glulisine 7-04 under the ity o f (APIDRA SC) 21:37: skin. [address] PAROXETINE 0 Yes 40mg Take 40 mg U nivers HCL ORAL 7-04 by mouth ity of 21:37: daily. [address] insulin 0 Yes inject [facility] glulisine 7-04 under the ity o f (APIDRA SC) 21:37: skin. [address] PAROXETINE 0 Yes 40mg Take 40 mg U nivers HCL ORAL 7-04 by mouth ity of 21:37: daily. [address] insulin 0 Yes inject Univers glulisine 7-04 under the ity o f (APIDRA SC) 21:37: skin. [address] PAROXETINE Yes 40mg Take 40 mg U nivers HCL ORAL 7-04 by mouth ity of 21:37: daily. [address] insulin 0 Yes inject Univers glulisine 7-04 under the ity o f (APIDRA SC) 21:37: skin. [address] PAROXETINE Yes 40mg Take 40 mg U nivers HCL ORAL 7-04 by mouth ity of 21:37: daily. [address] insulin 0 Yes inject Univers glulisine 7-04 under the ity o f (APIDRA SC) 21:37: skin. [address] PAROXETINE Yes 40mg Take 40 mg U nivers HCL ORAL 7-04 by mouth ity of 21:37: daily. [address] insulin 0 Yes inject Univers glulisine 7-04 under the ity o f (APIDRA SC) 21:37: skin. [address] PAROXETINE 2018-0 Yes 40mg Take 40 mg U nivers HCL ORAL 7-04 by mouth ity of 21:37: daily. [address] insulin 0 Yes inject [facility] glulisine 7-04 under the ity o f (APIDRA SC) 21:37: skin. [address] PAROXETINE 2018-0 Yes 40mg Take 40 mg U nivers HCL ORAL 7-04 by mouth ity of 21:37: daily. [address] insulin 2018- Yes inject Univers glulisine 7-04 under the ity o f (APIDRA SC) 21:37: skin. [address] insulin 2018-0 Yes inject Univers glulisine 7-04 under the ity o f (APIDRA SC) 21:37: skin. [address] insulin 2018- Yes inject [facility] glulisine 7-04 under the ity o f (APIDRA SC) 21:37: skin. [address] insulin 2018- Yes inject [facility] glulisine 7-04 under the ity o f (APIDRA SC) 21:37: skin. [address] insulin 2018- Yes inject Univers glulisine 7-04 under the ity o f (APIDRA SC) 21:37: skin. [address] insulin 2018- Yes inject Univers glulisine 7-04 under the ity o f (APIDRA SC) 21:37: skin. [address] insulin 2018- Yes inject Univers glulisine 7-04 under the ity o f (APIDRA SC) 21:37: skin. [address] insulin 2018- Yes inject [facility] glulisine 7-04 under the ity o f (APIDRA SC) 21:37: skin. [address] insulin 2018- Yes inject [facility] glulisine 7-04 under the ity o f (APIDRA SC) 21:37: skin. [address] HYDROcodone 2018- Yes 1{tbl} Take 1 Un jimmy -acetaminop 7-04 tablet by ity of [place] (NORCO) 21:37: mouth [place] 10-325 mg 52 every 8 Medical tablet (eight) Branch hours. insulin 2018-0 Yes 45U inject 45 Unive rs glargine,hu 7-04 Units ity of m.rec.anlog 21:37: [place] the [place] (LANTUS [place]) 52 skin 2 Medica l (two) Branch times daily. insulin 0 Yes inject [facility] glulisine 7-04 under the ity o f (APIDRA SC) 21:37: skin. [address] lisinopril- 0 Yes 1{tbl} Take 1 Un jimmy hydrochloro 7-04 tablet by ity of thiazide 21:37: mouth [place] 20-12.5 mg 52 daily. Medical per tablet Branch insulin Yes inject [facility] glulisine 7-04 under the ity o f (APIDRA SC) 16:37: skin. [address] insulin Yes inject [facility] glulisine 7-04 under the ity o f (APIDRA SC) 16:37: skin. [address] insulin Yes inject Univers glulisine 7-04 under the ity o f (APIDRA SC) 16:37: skin. [address] insulin Yes inject Univers glulisine 7-04 under the ity o f (APIDRA SC) 16:37: skin. [address] insulin Yes 90U QD Inject 90 [facility] [...] thiazide 14:31: mouth Medical (PRINZIDE,Z 09 daily. [place] ESTORETIC) 20-12.5 mg per tablet PARoxetine Yes 40mg QD Take [address] (PAXIL) 40 5-27 by [facility] tablet 14:31: every Medical 09 morning. [place] OXcarbazepi Yes 300mg Q.5D Take 300 C [facility] [...] I St -acetaminop 5-27 tablet by Dmitry [facility] - [place] (NORCO 14:31: mouth Medica l 10-325) 09 every 8 Center 10-325 mg (eight) per tablet hours as needed for Pain. pregabalin Yes 150mg Q.5D Take [address] (LYRICA) 5-27 mg by [facility] - 150 MG 14:31: mouth 2 Medical capsule 09 (two) Center times daily. BD INSULIN 2016-04 Yes USE FOUR Uni vers PEN NEEDLE 0-17 TIMES ity of UF 31 gauge 00:00: DAILY [place] x Medical Ndle Branch BD INSULIN 2016-04 Yes USE FOUR Uni vers PEN NEEDLE 0-17 TIMES ity of UF 31 gauge 00:00: DAILY [place] x Medical Ndle Branch BD INSULIN 2016-04 Yes USE FOUR Uni vers PEN NEEDLE 0-17 TIMES ity of UF 31 gauge 00:00: DAILY [place] x Medical Ndle Branch BD INSULIN 2016-04 Yes USE FOUR Uni vers PEN NEEDLE 0-17 TIMES ity of UF 31 gauge 00:00: DAILY [place] x Medical Ndle Branch BD INSULIN 2016-04 Yes USE FOUR Uni vers PEN NEEDLE 0-17 TIMES ity of UF 31 gauge 00:00: DAILY [place] x Medical Ndle Branch BD INSULIN 2016-04 Yes USE FOUR Uni vers PEN NEEDLE 0-17 TIMES ity of UF 31 gauge 00:00: DAILY [place] x Medical Ndle Branch BD INSULIN 2016-04- No USE FOUR Un jimmy PEN NEEDLE 0-17 06-10 TIMES ity of UF 31 gauge 00:00: 00:00 [place] 08[place]20" 00 :00 Medical Ndle Branch blood sugar Yes TID, Univer s diagnostic 12-10 Dx:E11.9 ity o f (FREESTYLE 00:00: [place] LITE 00 Medical STRIPS) Branch strip blood sugar Yes TID, Univer s diagnostic 12-10 Dx:E11.9 ity o f (FREESTYLE 00:00: [place] LITE 00 Medical STRIPS) Branch strip blood sugar Yes TID, Univer s diagnostic 12-10 Dx:E11.9 ity o f (FREESTYLE 00:00: [place] LITE 00 Medical STRIPS) Branch strip blood sugar Yes TID, Univer s diagnostic 12-10 Dx:E11.9 ity o f (FREESTYLE 00:00: [place] LITE 00 Medical STRIPS) Branch strip blood sugar Yes TID, Univer s diagnostic 12-10 Dx:E11.9 ity o f (FREESTYLE 00:00: [place] LITE 00 Medical STRIPS) Branch strip blood sugar Yes TID, Univer s diagnostic 12-10 Dx:E11.9 ity o f (FREESTYLE 00:00: [place] LITE 00 Medical STRIPS) Branch strip blood sugar 2020- No TID, Unive rs diagnostic 12-10 Dx:E11.9 ity of (FREESTYLE 00:00: 00:00 [place] LITE 00 :00 Medical STRIPS) Branch strip pregabalin Yes [id number] 1 pill bid [facility] 75 mg 7-31 for a ity of capsule 00:00: week. If [place] 00 pain not Medical better Branch than 2 pills bid. pregabalin 2020- No [id number] 1 pill bid [facility] 75 mg 7-31 06-08 for a ity of capsule 00:00: 00:00 week. If [place] 00 :00 pain not Medical better Branch than 2 pills bid. pregabalin 2016-2020- No [id number] 1 pill bid Univers 75 mg 7-31 06-08 for a ity of capsule 00:00: 00:00 week. If [place] 00 :00 pain not Medical better Branch than 2 pills bid. Blood-Gluco Yes Use as Univ ers se Meter 1-23 directed, ity of (FREESTYLE 00:00: TID, [place] LITE METER) 00 DX:E11.9 Medi mike Kit Branch Blood-Gluco Yes Use as Univ ers se Meter 1-23 directed, ity of (FREESTYLE 00:00: TID, [place] LITE METER) 00 DX:E11.9 Medi mike Kit Branch Blood-Gluco Yes Use as Univ ers se Meter 1-23 directed, ity of (FREESTYLE 00:00: TID, [place] LITE METER) 00 DX:E11.9 Medi mike Kit Branch Blood-Gluco Yes Use as Univ ers se Meter 1-23 directed, ity of (FREESTYLE 00:00: TID, [place] LITE METER) 00 DX:E11.9 [facility] Kit Branch Blood-Gluco Yes Use as Univ ers se Meter 1-23 directed, ity of (FREESTYLE 00:00: TID, [place] LITE METER) 00 DX:E11.9 [facility] Kit Branch Blood-Gluco Yes Use as Univ ers se Meter 1-23 directed, ity of (FREESTYLE 00:00: TID, [place] LITE METER) 00 DX:E11.9 [facility] Kit Branch Blood-Gluco Yes Use as Univ ers se Meter 1-23 directed, ity of (FREESTYLE 00:00: TID, [place] LITE METER) 00 DX:E11.9 [facility] Kit Branch lancets Yes Use 3X Univers (FREESTYLE 1-23 daily. Dx ity of LANCETS) 28 00:00: Code E11.9 [place] [address] Medical Branch Blood-Gluco Yes Use as Univ ers se Meter 1-23 directed, ity of (FREESTYLE 00:00: TID, [place] LITE METER) 00 DX:E11.9 [facility] Kit Branch Blood-Gluco Yes Use as Univ ers se Meter 1-23 directed, ity of (FREESTYLE 00:00: TID, [place] LITE METER) 00 DX:E11.9 [facility] Kit Branch Blood-Gluco Yes Use as Univ ers se Meter 1-23 directed, ity of (FREESTYLE 00:00: TID, [place] LITE METER) 00 DX:E11.9 [facility] Kit Branch Blood-Gluco Yes Use as Univ ers se Meter 1-23 directed, ity of (FREESTYLE 00:00: TID, [place] LITE METER) 00 DX:E11.9 [facility] Kit Branch Blood-Gluco Yes Use as Univ ers se Meter 1-23 directed, ity of (FREESTYLE 00:00: TID, [place] LITE METER) 00 DX:E11.9 [facility] Kit Branch Blood-Gluco Yes Use as Univ ers se Meter 1-23 directed, ity of (FREESTYLE 00:00: TID, [place] LITE METER) 00 DX:E11.9 [facility] Kit Branch Blood-Gluco Yes Use as Univ ers se Meter 1-23 directed, ity of (FREESTYLE 00:00: TID, [place] LITE METER) 00 DX:E11.9 [facility] Kit Branch Blood-Gluco Yes Use as Univ ers se Meter 1-23 directed, ity of (FREESTYLE 00:00: TID, [place] LITE METER) 00 DX:E11.9 [facility] Kit Branch Blood-Gluco Yes Use as Univ ers se Meter 1-23 directed, ity of (FREESTYLE 00:00: TID, [place] LITE METER) 00 DX:E11.9 [facility] Kit Branch Blood-Gluco Yes Use as Univ ers se Meter 1-23 directed, ity of (FREESTYLE 00:00: TID, [place] LITE METER) 00 DX:E11.9 [facility] Kit Branch Blood-Gluco Yes Use as Univ ers se Meter 1-23 directed, ity of (FREESTYLE 00:00: TID, [place] LITE METER) 00 DX:E11.9 [facility] Kit Branch Blood-Gluco Yes Use as Univ ers se Meter 1-23 directed, ity of (FREESTYLE 00:00: TID, [place] LITE METER) 00 DX:E11.9 [facility] Kit Branch Blood-Gluco Yes Use as Univ ers se Meter 1-23 directed, ity of (FREESTYLE 00:00: TID, [place] LITE METER) 00 DX:E11.9 [facility] Kit Branch Blood-Gluco Yes Use as Univ ers se Meter 1-23 directed, ity of (FREESTYLE 00:00: TID, [place] LITE METER) 00 DX:E11.9 [facility] Kit Branch Blood-Gluco Yes Use as Univ ers se Meter 1-23 directed, ity of (FREESTYLE 00:00: TID, [place] LITE METER) 00 DX:E11.9 [facility] Kit Branch Blood-Gluco Yes Use as Univ ers se Meter 1-23 directed, ity of (FREESTYLE 00:00: TID, [place] LITE METER) 00 DX:E11.9 [facility] Kit Branch Blood-Gluco Yes Use as Univ ers se Meter 1-23 directed, ity of (FREESTYLE 00:00: TID, [place] LITE METER) 00 DX:E11.9 [facility] Kit Branch Blood-Gluco Yes Use as Univ ers se Meter 1-23 directed, ity of (FREESTYLE 00:00: TID, [place] LITE METER) 00 DX:E11.9 [facility] Kit Branch Blood-Gluco Yes Use as Univ ers se Meter 1-23 directed, ity of (FREESTYLE 00:00: TID, [place] LITE METER) 00 DX:E11.9 [facility] Kit Branch Blood-Gluco Yes Use as Univ ers se Meter 1-23 directed, ity of (FREESTYLE 00:00: TID, [place] LITE METER) 00 DX:E11.9 [facility] Kit Branch lancets 2016-2020- No Use 3X Univers (FREESTYLE 1-23 06-08 daily. Dx ity of LANCETS) 28 00:00: 00:00 Code E11.9 [place] gauge Misc 00 :00 Medical Branch lancets 2016-0 2020- No Use 3X Univers (FREESTYLE 1-23 06-08 daily. Dx ity of LANCETS) 28 00:00: 00:00 Code E11.9 [place] gauge Misc 00 :00 Medical Branch Lancets 2014- Yes Use as Univers (ACCU-CHEK 6-09 directed, ity of FASTCLIX) 00:00: DX[place]250.01[place] Misc 00 six times Medical per day. Branch Lancets 2014-2020- No Use as Univers (ACCU-CHEK 6- 06-08 directed, ity of FASTCLIX) 00:00: 00:00 DX:250.01, [place] Misc 00 :00 six times Medical per day. Branch Lancets 2014-0 2020- No Use as Univers (ACCU-CHEK 6-09 06-08 directed, ity of FASTCLIX) 00:00: 00:00 DX:250.01, [place] Misc 00 :00 six times Medical per day. Branch Immunizations Ordered Filled Immunization Date Status Comments Sour e Immunization Name Name Rubella 2012-07-31 Completed [facility] 00:00:00 [facility] Rubella 2012-07-31 Completed University of 00:00:00 [place] [facility] Rubella 2012-07-31 Completed University of 00:00:00 [place] [facility] Rubella 2012-07-31 Completed University of 00:00:00 [place] [facility] Rubella 2012-07-31 Completed University of 00:00:00 [place] [facility] Rubella 2012-07-31 Completed University of 00:00:00 [place] [facility] Rubella 2012-07-31 Completed University of 00:00:00 [place] [facility] Rubella 2012-07-31 Completed University of 00:00:00 [place] [facility] Rubella 2012-07-31 Completed University of 00:00:00 [place] [facility] Rubella 2012-07-31 Completed University of 00:00:00 [place] [facility] Rubella 2012-07-31 Completed University of 00:00:00 [place] [facility] Rubella 2012-07-31 Completed University of 00:00:00 [place] [facility] Rubella 2012-07-31 Completed University of 00:00:00 [place] [facility] Rubella 2012-07-31 Completed University of 00:00:00 [place] [facility] Rubella 2012-07-31 Completed University of 00:00:00 [place] [facility] Rubella 2012-07-31 Completed University of 00:00:00 [place] [facility] Rubella 2012-07-31 Completed University of 00:00:00 [place] [facility] Rubella 2012-07-31 Completed University of 00:00:00 [place] [facility] Rubella 2012-07-31 Completed University of 00:00:00 [place] [facility] Rubella 2012-07-31 Completed University of 00:00:00 [place] [facility] Rubella 2012-07-31 Completed University of 00:00:00 [place] [facility] Rubella 2012-07-31 Completed University of 00:00:00 [place] [facility] Rubella 2012-07-31 Completed University of 00:00:00 [place] [facility] Rubella 2012-07-31 Completed University of 00:00:00 [place] [facility] Rubella 2012-07-31 Completed University of 00:00:00 [place] [facility] Rubella 2012-07-31 Completed University of 00:00:00 [place] [facility] Rubella 2012-07-31 Completed University of 00:00:00 [place] [facility] Td 2005-09-27 Completed University of 00:00:00 [place] [facility] Td 2005-09-27 Completed University of 00:00:00 [place] [facility] Td 2005-09-27 Completed University of 00:00:00 [place] [facility] Td 2005-09-27 Completed University of 00:00:00 [place] [facility] Td 2005-09-27 Completed University of 00:00:00 [place] [facility] Td 2005-09-27 Completed University of 00:00:00 [place] [facility] Td 2005-09-27 Completed University of 00:00:00 [place] [facility] Td 2005-09-27 Completed University of 00:00:00 [place] [facility] Td 2005-09-27 Completed University of 00:00:00 [place] [facility] Td 2005-09-27 Completed University of 00:00:00 [place] [facility] Td 2005-09-27 Completed University of 00:00:00 [place] [facility] Td 2005-09-27 Completed University of 00:00:00 [place] [facility] Td 2005-09-27 Completed University of 00:00:00 [place] [facility] Td 2005-09-27 Completed University of 00:00:00 [place] [facility] Td 2005-09-27 Completed University of 00:00:00 [place] [facility] Td 2005-09-27 Completed University of 00:00:00 [place] [facility] Td 2005-09-27 Completed University of 00:00:00 [place] [facility] Td 2005-09-27 Completed University of 00:00:00 [place] [facility] Td 2005-09-27 Completed University of 00:00:00 [place] [facility] Td 2005-09-27 Completed University of 00:00:00 [place] [facility] Td 2005-09-27 Completed University of 00:00:00 [place] [facility] Td 2005-09-27 Completed University of 00:00:00 [place] [facility] Td 2005-09-27 Completed University of 00:00:00 [place] [facility] Td 2005-09-27 Completed University of 00:00:00 [place] [facility] Td 2005-09-27 Completed University of 00:00:00 [facility] Branch Td 2005-09-27 Completed University of 00:00:00 [facility] Td 2005-09-27 Completed University of 00:00:00 [facility] Vital Signs Vital Name Observation Time Observation Value Comments Source Body weight 2020-10-16 22:13:00 81.647 kg [facility] BMI 2020-10-16 22:13:00 27.37 kg/m2 [facility] Systolic blood 2020-09-26 18:27:00 132 mm[Hg] Univer sity of pressure [facility] Diastolic blood 2020-09-26 18:27:00 84 mm[Hg] Unive rsity of pressure [facility] Heart rate 2020-09-26 18:27:00 110 /min [facility] ty [facility] Body temperature 2020-09-26 18:27:00 [facility]72 [facility] 2020-09-26 18:27:00 78.427 kg Universi ty [facility] BMI 2020-09-26 18:27:00 26.29 kg/m2 Universi ty of [facility] Oxygen saturation in 2020-09-26 18:27:00 100 /min University of Arterial blood by [facility] Pulse oximetry Branch Systolic blood 2020-09-12 20:50:00 171 mm[Hg] Univer sity of pressure [facility] Diastolic blood 2020-09-12 20:50:00 116 mm[Hg] Unive rsity of [facility] Heart rate 2020-09-12 20:50:00 73 /min Universi ty [facility] Body temperature 2020-09-12 19:11:00 37.06 [facility] weight 2020-09-12 19:11:00 81.647 kg Universi ty [facility] BMI 2020-09-12 19:11:00 27.37 kg/m2 Universi ty [facility] Oxygen saturation in 2020-09-12 19:11:00 98 /min University of Arterial blood by [facility] Pulse oximetry Branch Procedures Procedure Date / Time Performed Performing Clinician Sourc e MAGNESIUM 2020-09-12 20:16:00 Maciel Ortega [facility] VITAMIN D, 25-OH 2020-09-12 20:16:00 Maciel Ortega [facility] FREE T3 2020-09-12 20:16:00 Maciel Ortega [facility] CONSENT/REFUSAL FOR 2020-09-12 18:47:32 Doctor Unassigned, No Un [facility] DIAGNOSIS AND Name [facility] TREATMENT Plan of Care Planned Activity Planned Date Details Comments Source Future Scheduled 2021-08-[address] [facility] 00:[facility]:00 (procedure) [code = [facility] 74730356] Future Scheduled 2019-12-07 INFLUENZA VACCINE (#1) [facility]00 [code = INFLUENZA Medical Ce nter VACCINE (#1)] Future Scheduled [address] [facility] - Test 00:00:00 malignant neoplasm of Medica l Center cervix (procedure) [code = 549151871] Future Scheduled [address] DIABETIC EYE EXAM [facility] - Test 00:00:00 [code = DIABETIC EYE Medical Center EXAM] Future Scheduled 1986 Urine screening for [facility] - Test 00:00:00 protein (procedure) Medical Center [code = 819779270] Future Scheduled [address] [facility] - Test 00:00:00 0-64 YRS (1 of 1 - Medical C enter PPSV23) [code = PNEUMOCOCCAL VACCINE 0-64 YRS (1 of 1 - PPSV23)] Encounters Start End Encounter Admission Attending Care Care Encounter Source Date/Time Date/Time Type Type Clinicians Facility Department ID 2021-04-16 2021-04-[address] [facility] [id number] [facility] 2021-04-03 2021-04-03 Refill JULIETTE Coronel [id number] Univers 00:00:00 00:00:00 Sonia KHAN [id number] ity amada [facility] [id number] Kady BEDOYA [phone] [address] 2021-03-16 2021-03-[address] [facility] [id number] [facility] 2021-03-12 2021-03-[address] [facility] [id number] [facility] 2021-03-07 2021-03-07 Refill JULIETTE Ortega 1.2.840.114 [id number] Univers 00:00:00 00:00:00 Maciel KHAN [id number] i ty [facility] [id number] [phone] Pa dical NAL [address] [place] [address] 2021-02-21 2021-02-21 ambulatory [facility] [id number] [facility] 2021-02-21 2021-02-21 ambulatory [facility] [id number] [facility] 2021-02-14 2021-02-14 ambulatory [facility]ML[facility] [id number] [facility] 2021-01-18 2021-01-[address] [facility] [id number] 82Q-[id number] Univers 15:40:00 15:40:00 SONIA [id number] [facility] 2021-01-18 2021-01-18 [id number] Univers 15:40:00 15:40:00 SONIA [facility] 2021-01-05 2021-01-[address] [facility] [id number] 82Q-[id number] Univers 16:00:00 16:00:00 SONIA [id number] [facility] 2021-01-05 2021-01-05 [facility] Noble [id number] Univers 16:00:00 [facility]:00:00 [facility] 2020-12-24 2020-12-24 [facility] 1.2.840.114 [id number] Univers 00:00:00 00:00:00 Maciel Khan [id number] i ty of [id number] [phone] [facility] nal [address] [place] [address] 2020-12-08 2020-12-08 [facility] 1.2.840.114 [id number] Univers 00:00:00 00:00:00 Maciel Khan [id number] i ty [id number] [phone] Pa dicalejandro barnhart 044 [facility] 2020-12-07 2020-12-07 Telephone CARMITA Wallace [id number] Univers 00:00:00 00:00:00 Richard MAHER [id number] i ty of [facility] [id number] Alirio as [phone] [address] 2020-12-06 2020-12-06 Laboratory Only, Ang Db Test [facility] 1.2.8 40.114 [id number] Univers 20:00:23 20:10:23 Only Malena Quintanilla [facility] 350.1.13.10 ity of [place] [id number] Alirio as Chris?Blea [phone] Pa dicalejandro [facility] [address] [facility] 2020-12-06 2020-12-[address] [facility] [id number] Univers 20:00:00 20:00:00 [id number] [facility] 2020-12-06 2020-12-06 [facility] [id number] Univers 20:00:00 20:00:00 MALENA [facility] 2020-11-07 2020-11-07 [facility] [id number] [id number] Univers 14:20:00 14:20:00 MACIEL [id number] [facility] 2020-11-07 2020-11-07 [facility] [id number] Univers 14:20:00 14:20:00 MACIEL [facility] 2020-11-06 2020-11-06 TelemedicFormerly [facility] 1.2.840.114 [id number] 07:53:23 16:29:19 ne Visit Sonia Agrawal Tracee 350.1.13.10 [place] 4.2.7.2.686 Professio [phone] [address] 2020-11-06 2020-11-06 [facility]medici [facility] 1.2.840.114 [id number] [facility] 07:53:23 16:29:19 ne Visit Sonia Khan 350.1.13.10 ity [id number] [phone] [address] 2020-11-06 2020-11-06 Out[facility] [id number] [id number]-20 Univers 16:20:00 16:20:00 SONIA [id number] [facility] 2020-11-06 2020-11-06 Out[facility] [id number] [facility] 16:20:00 16:20:00 SONIA [facility] 2020-10-30 2020-10-30 [facility] 1.2.840.114 [id number] 00:00:00 00:00:00 Outreach Gabriela Khan 350.1.13.10 [place] [id number] Professio [phone] [address] 2020-10-30 2020-10-30 Patient Umang [facility] 1.2.840.114 [id number] Univers 00:00:00 00:00:00 Outreach Gabriela Khan 350.1.13.10 ity of [id number] [phone] [address] 2020-10-24 2020-10-[address] [facility] [id number] Univers 14:45:00 14:45:00 EVARISTO [id number] [facility] 2020-10-24 2020-10-24 Outpatient [facility] [id number] Univers 14:45:00 14:45:00 EVARISTO [facility] 2020-10-16 2020-10-17 Telemedici [facility] 1.2.840.114 [id number] [facility] 08:28:02 10:34:58 ne Visit Sonia Khan 350.1.13.10 ity [id number] [phone] Pa dical [facility] 231 [facility] 2020-10-16 2020-10-[address] [facility] [id number] 82Q-20 Univers 15:20:00 15:20:00 SONIA [id number] [facility] 2020-10-16 2020-10-[address] [facility] [id number] Univers 15:20:00 15:20:00 SONIA [facility] 2020-10-13 2020-10-13 [facility] 1.2.840.114 [id number] Univers 00:00:00 00:00:00 Maciel Khan 350.1.13.10 i ty [place].2.[place] [phone] [facility] 044 [facility] 2020-10-12 2020-10-12 [facility] [id number] 82Q-20 Univers 08:00:00 08:00:00 MACIEL [id number] [facility] 2020-10-12 2020-10-12 Outpatient R JORDAN, [facility] [id number] Univers 08:00:00 08:00:00 MACIEL [facility] 2020-09-26 2020-09-26 [facility] 1.2.840.114 [id number] Univers 13:18:03 14:36:20 Visit Maciel Khan 350.1.13.10 i ty [id number] [phone] [facility] 044 [facility] 2020-09-26 2020-09-26 Outpatient R JORDAN, [facility] [id number] 82Q-20 Univers 13:00:00 13:00:00 MACIEL [id number] [facility] 2020-09-26 2020-09-26 [facility] [id number] Univers 13:00:00 13:00:00 MACIEL [facility] 2020-09-20 2020-09-20 Telephone [facility] 1.2.840.114 [id number] Univers 00:00:00 00:00:00 Maciel Khan 350.1.13.10 i ty of [place] [id number] [phone] Pa dical nal 044 [facility] 2020-09-19 2020-09-19 Telephone [facility] 1.2.840.114 [id number] Univers 00:00:00 00:00:00 Maciel Khan 350.1.13.10 i ty [id number] [phone] Pa dical nal 044 [facility] 2020-09-16 2020-09-16 Letter CARMITA Ortega 1.2.840.114 [id number] Univers 00:00:00 00:00:00 (Out) Maciel MAHER 350.1.13.10 it y of [facility] 4.2.7.2.686 Alirio as [phone] [address] 2020-09-14 2020-09-14 Refill [facility] 1.2.840.114 [id number] Univers 00:00:00 00:00:00 Maciel Khan 350.1.13.10 i ty [place]2.[place].2.[place] [phone] Pa dical nal 044 [facility] 2020-09-12 2020-09-12 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, 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 [facility] 1.2.840.114 [id number] Univers 15:07:30 15:22:30 Visit Maciel Ortega 350.1.13.10 ity of [place].2.[place] [phone] Pa dicla nal 353 [facility] 2020-09-12 2020-09-12 Office [facility] 1.2.840.114 [id number] [facility] 13:50:55 15:04:07 Visit Maciel Khan 350.1.13.10 i ty of [place] 4[place]2.7.2.[place] [phone] Pa dical [address] 2020-09-12 2020-09-12 [facility] [id number] 82Q-20 Univers 13:40:00 13:40:00 MACIEL [id number] [facility] 2020-09-12 2020-09-12 [facility] [id number] Univers 13:40:00 13:40:00 MACIEL [facility] 2020-09-12 2020-09-12 Orders Doctor CARMITA 1.2.840.114 [id number] Univers 00:00:00 00:00:00 Only Unassigned, GUNNAR 350.1.13.10 ity of [facility] 4.2.7.2.686 Alirio as [phone] [address] 2020-09-12 2020-09-12 Telephone [facility] 1.2.840.114 [id number] Univers 00:00:00 00:00:00 Maciel Khan 350.1.13.10 i ty of [place] 4[place].7.2.[place] [phone] Pa dical [address] 2020-08-29 2020-08-29 [facility] [id number] 82Q-20 Univers 15:00:00 15:00:00 MACIEL [id number] [facility] Results Test Description Test Time Test Comments Results Result Comments Source VITAMIN D, 25-OH 2020-09-13 09:11:50 Test Item Value Reference Range Interpretation Comme nts VIT D 25OH (test code = 14345-8) 45 ng/mL 25-80 ADRIEL (test code = ADRIEL) Deficiency: <20 ng/mLInsufficiency: 20-24 ng/mLOptimal: 25-80 ng/mL Lab Interpretation (test code = 84276-9) Normal [facility] [id number] 09:11:50 Test Item Value Reference Range Interpretation Comments VIT D 25OH (test code = 45 ng/mL 25-80 31536-5) ADRIEL (test code = ADRIEL) Deficiency: <20 ng/mLInsufficiency : 20-24 ng/mLOptimal: 25-80 ng/mL Lab Interpretation (test Normal code = 28566-6) [facility] [id number] 22:05:56 Test Item Value Reference Range Interpretation Comments FREE T3 (test code = 1478821647) 4.50 pg/mL 2.77-5.27 Lab Interpretation (test code = Normal 92075-8) [facility] [id number] 22:05:56 Test Item Value Reference Range Interpretation Comments FREE T3 (test code = 7209832708) 4.50 pg/mL 2.77-5.27 Lab Interpretation (test code = Normal 28949-2) [facility]2021-06-08 21:49:35 Test Item Value Reference Range Interpretation Comments MAGNESIUM (test code = 3412890616) 2.0 mg/dL 1.7-2.4 Lab Interpretation (test code = Normal 01778-7) [facility]2021-06-08 21:49:35 Test Item Value Reference Range Interpretation Comments MAGNESIUM (test code = 9622749049) 2.0 mg/dL 1.7-2.4 Lab Interpretation (test code = Normal 89472-0) [facility] GRAM [id number] 10:25:00 Test Item Value Reference Range Interpretation Comments CULTURE (BEAKER) See comment (test code = 1095) GRAM STAIN RESULT 1+ White blood cells (BEAKER) (test code = seen 1123) GRAM STAIN RESULT 0-5 epithelial cells (BEAKER) (test code = 776374) GRAM STAIN RESULT No organisms seen (BEAKER) (test code = 313503) <1+ yeastNo Normal respiratory neha presentPOCT-GLUCOSE [id number] 11:59:00 Test Item Value Reference Range Interpretation Comments POC-GLUCOSE METER 168 mg/dL 70-110 H TESTED AT [facility] 67[facility] (BEAKER) (test code = UTNDE GREG[place] 1538) 40328 POCT-GLUCOSE [id number] 08:13:00 Test Item Value Reference Range Interpretation Comments POC-GLUCOSE METER 176 mg/dL 70-110 H TESTED AT [facility] (BEAKER) (test code = TUNDE [place] 1538) 76[address] BASIC METABOLIC [id number] 07:35:00 Test Item Value Reference Range Interpretation [...] RED BLOOD CELLS 0 /100 WBC 0-0 ([facility]) (test code = 413) POCT-GLUCOSE [id number] 21:38:00 Test Item Value Reference Range Interpretation Comments POC-GLUCOSE METER 218 mg/dL 70-110 H TESTED AT [place] [address] ([facility]) (test code = TUNDE Dickey [place] 1538) 48[address] POCT-GLUCOSE [id number] 18:12:00 Test Item Value Reference Range Interpretation Comments POC-GLUCOSE METER 280 mg/dL 70-110 H TESTED AT [place] [address] ([facility]) (test code = TUNDE [place] 1538) [address] RAD, CHEST, 2 [id number] 16:46:00Reason for exam:->Pneumonia vs. volume overload, improving.Should [...] MDReport Verified Date/Time: 08/30/2018 16:46:02 Reading Location: [address] Neuro Reading Room POCT- GLUCOSE [id number] 12:32:00 Test Item Value Reference Range Interpretation Comments POC-GLUCOSE METER 172 mg/dL 70-110 H TESTED AT [facility] 6720 ([facility]) (test code = TUNDE Dickey [place] 1538) 70[address] POCT-GLUCOSE [id number] 08:14:00 Test Item Value Reference Range Interpretation Comments POC-GLUCOSE METER 287 mg/dL 70-110 H TESTED AT [facility] 6720 ([facility]) (test code = TUNDE Dic[place] 1538) 17[address] BLOOD [id number] 08:01:00 Test Item Value Reference Range Interpretation Comments CULTURE ([facility]) (test No growth in 5 days code = 1095) BASIC METABOLIC [id number] 07:11:00 Test Item Value Reference Range Interpretation [...] 0-0 (BEAKER) (test code = 413) BLOOD [id number] 02:02:00 Test Item Value Reference Range Interpretation Comments CULTURE ([facility]) (test No growth in 5 days code = 1095) POCT-GLUCOSE [id number] 22:17:00 Test Item Value Reference Range Interpretation Comments POC-GLUCOSE METER 161 mg/dL 70-110 H TESTED AT [place] [address] ([facility]) (test code = TUNDE Dickey [facility] 1538) 8[address]37 POCT-GLUCOSE [id number] 18:26:00 Test Item Value Reference Range Interpretation Comments POC-GLUCOSE METER 161 mg/dL 70-110 H TESTED AT [place] [address] ([facility]) (test code = TUNDE Dickey [facility] 1538) 62434 VANCOMYCIN LEVEL, [id number] 14:58:00 Test Item Value Reference Range Interpretation [...] 0-0 (BEAKER) (test code = 413) POCT-GLUCOSE [id number] 12:11:00 Test Item Value Reference Range Interpretation Comments POC-GLUCOSE METER 141 mg/dL 70-110 H TESTED AT [place] [address] ([facility]) (test code = [facility] 1538) 77516 POCT-GLUCOSE [id number] 11:50:00 Test Item Value Reference Range Interpretation Comments POC-GLUCOSE METER 60 mg/dL 70-110 L TESTED AT [place] [address] ([facility]) (test code = [facility] [address] 1538) POCT-GLUCOSE [id number] 08:03:00 Test Item Value Reference Range Interpretation Comments POC-GLUCOSE METER 81 mg/dL 70-110 TESTED AT [place] [address] ([facility]) (test code = [facility] 22406 1538) BASIC METABOLIC [id number] 07:38:00 Test Item Value Reference Range Interpretation [...] NOT APPLICABLE FOR DIALYSIS PATIEN TS. POCT-GLUCOSE [id number] 22:05:00 Test Item Value Reference Range Interpretation Comments POC-GLUCOSE METER 216 mg/dL 70-110 H TESTED AT [place] [address] ([facility]) (test code = TUNDE Dickey [facility] 1538) 86251 POCT-GLUCOSE [id number] 19:55:00 Test Item Value Reference Range Interpretation Comments POC-GLUCOSE METER 210 mg/dL 70-110 H TESTED AT [place] [address] ([facility]) (test code = TUNDE Dickey [facility] 1538) 03041 POCT-GLUCOSE [id number] 14:27:00 Test Item Value Reference Range Interpretation Comments POC-GLUCOSE METER 163 mg/dL 70-110 H TESTED AT [place] [address] ([facility]) (test code = TUNDE Dickey [facility] 1538) 99221 VANCOMYCIN LEVEL, [id number] 13:30:00 Test Item Value Reference Range Interpretation Comments VANCOMYCIN TROUGH ([facility]) (test 20.0 ug/mL 10.0-20.0 code = 522) Please obtain vancomycin trough 30 min prior to scheduled dose. Hold dose if level >20. Thank you!POCT-GLUCOSE [id number] 10:15:00 Test Item Value Reference Range Interpretation Comments POC-GLUCOSE METER 153 mg/dL 70-110 H TESTED AT [place] [address] ([facility]) (test code = TUNDE Dickey [facility] 1538) 67997 HIV-1 ANTIGEN WITH HIV-1/2 [id number] 06:31:00 Test Item Value Reference Range Interpretation Comments HIV-1 ANTIGEN WITH HIV 1\\T\\2 Nonreactive Nonreactive ANTIBODY (2) ([facility]) (test code = 2586) CT, CHEST, WITHOUT [id number] 01:38:00FINAL REPORT Chest CT without contrast CLINICAL [...] Abraham Verified Date/Time: 08/28/2018 01:38:00 Reading Location: [address] Transitional Reading Room SPUTUM CULTURE + GRAM [id number] 01:06:00 Test Item Value Reference Range Interpretation Comments CULTURE (BEAKER) Oropharyngeal (test code = 1095) contamination, specimen rejected. Recollect requested. GRAM STAIN RESULT <1+ White blood cells (BEAKER) (test code seen = 1123) GRAM STAIN RESULT 0-5 epithelial cells (BEAKER) (test code = 37501) GRAM STAIN RESULT No organisms seen (BEAKER) (test code = 71710) CT, MAXILLOFACIAL AREA, WO [id number] 01:06:00FINAL REPORT Clinical History: Fever of unknown [...] Abraham Verified Date/Time: 08/28/2018 01:06:15 Reading Location: [address] Transitional Reading Room POCT-GLUCOSE [id number] 21:15:00 Test Item Value Reference Range Interpretation Comments POC-GLUCOSE METER 291 mg/dL 70-110 H TESTED AT [place] [address] ([facility]) (test code = [facility] 1538) 69057 POCT-GLUCOSE [id number] 18:00:00 Test Item Value Reference Range Interpretation Comments POC-GLUCOSE METER 215 mg/dL 70-110 H TESTED AT [place] [address] ([facility]) (test code = [facility] 1538) 08867 POCT-GLUCOSE [id number] 13:36:00 Test Item Value Reference Range Interpretation Comments POC-GLUCOSE METER 237 mg/dL 70-110 H TESTED AT [place] [address] ([facility]) (test code = [facility] 1538) 22272 VANCOMYCIN LEVEL, [id number] 12:42:00 Test Item Value Reference Range Interpretation Comments VANCOMYCIN TROUGH (BEAKER) (test 18.4 ug/mL 10.0-20.0 code = 522) SPUTUM CULTURE + GRAM [id number] 11:22:00 Test Item Value Reference Range Interpretation Comments CULTURE (BEAKER) <1+ Normal respiratory (test code = 1095) neha present GRAM STAIN RESULT 2+ White blood cells (BEAKER) (test code = seen 1123) GRAM STAIN RESULT 10-15 epithelial cells (BEAKER) (test code = 76730) GRAM STAIN RESULT 2+ gram positive cocci (BEAKER) (test code = in chains and pairs 53894) POCT-GLUCOSE [id number] 09:50:00 Test Item Value Reference Range Interpretation Comments POC-GLUCOSE METER 212 mg/dL 70-110 H TESTED AT [place] [address] (BEAKER) (test code = [place] 1538) 35[address] BASIC METABOLIC [id number] 06:45:00 Test Item Value Reference Range Interpretation [...] 150-450 code = 756) MEAN PLATELET VOLUME (AKER) 10.3 fL 9.4-12.3 (test code = 754) NUCLEATED RED BLOOD CELLS 0 /100 WBC 0-0 ([facility]) (test code = 413) POCT-GLUCOSE [id number] 21:37:00 Test Item Value Reference Range Interpretation Comments POC-GLUCOSE METER 130 mg/dL 70-110 H TESTED AT [place] [address] ([facility]) (test code = TUNDE Dickey [facility] 1538) 05711 POCT-GLUCOSE [id number] 18:27:00 Test Item Value Reference Range Interpretation Comments POC-GLUCOSE METER 257 mg/dL 70-110 H TESTED AT [place] [address] ([facility]) (test code = [facility] Dickey [facility] 1538) [address] POCT-GLUCOSE [id number] 16:45:00 Test Item Value Reference Range Interpretation Comments POC-GLUCOSE METER 167 mg/dL 70-110 H TESTED AT [place] [address] ([facility]) (test code = [facility] Dickey [facility] 1538) 94362 POCT-GLUCOSE [id number] 15:20:00 Test Item Value Reference Range Interpretation Comments POC-GLUCOSE METER 235 mg/dL 70-110 H TESTED AT [place] [address] ([facility]) (test code = [facility] Noble [facility] 1538) 30770 POCT-GLUCOSE [id number] 14:00:00 Test Item Value Reference Range Interpretation Comments POC-GLUCOSE METER 198 mg/dL 70-110 H TESTED AT [place] [address] ([facility]) (test code = [facility] Noble [facility] 1538) 23551 BASIC METABOLIC [id number] 13:37:00 Test Item Value Reference Range Interpretation [...] NOT APPLICABLE FOR DIALYSIS PATIEN TS. BLOOD [id number] 12:01:00 Test Item Value Reference Range Interpretation Comments CULTURE (BEAKER) (test No growth in 5 days code = 1095) BLOOD [id number] 12:01:00 Test Item Value Reference Range Interpretation Comments CULTURE (BEAKER) (test No growth in 5 days code = 1095) VANCOMYCIN LEVEL, [id number] 11:39:00 Test Item Value Reference Range Interpretation Comments VANCOMYCIN TROUGH (BEAKER) (test 6.5 ug/mL 10.0-20.0 L code = 522) CBC W/PLT COUNT & AUTO [id number] 11:01:00 Test Item Value Reference Range Interpretation [...] PERCENT (BEAKER) (test code = 2801) POCT-GLUCOSE [id number] 07:59:00 Test Item Value Reference Range Interpretation Comments POC-GLUCOSE METER 51 mg/dL 70-110 L TESTED AT [place] [address] ([facility]) [facility] [address] 1538) POCT-GLUCOSE [id number] 21:45:00 Test Item Value Reference Range Interpretation Comments POC-GLUCOSE METER 170 mg/dL 70-110 H TESTED AT [place] [address] ([facility]) (test code = [facility] [facility] 1538) [address] POCT-GLUCOSE [id number] 17:32:00 Test Item Value Reference Range Interpretation Comments POC-GLUCOSE METER 154 mg/dL 70-110 H TESTED AT [place] [address] ([facility]) (test code = [facility] Noble [facility] 1538) [address] POCT-GLUCOSE [id number] 13:45:00 Test Item Value Reference Range Interpretation Comments POC-GLUCOSE METER 79 mg/dL 70-110 TESTED AT [facility] 6720 (BEAKER) (test code = TUNDE Dickey [facility] [address] 1538) POCT-GLUCOSE [id number] 13:28:00 Test Item Value Reference Range Interpretation Comments POC-GLUCOSE METER 57 mg/dL 70-110 L Notified Noble Landry MD/TESTED AT (BEAKER) (test code = [facility] 67 MARGY 1538) [facility] 7703 0 POCT-GLUCOSE [id number] 08:53:00 Test Item Value Reference Range Interpretation Comments POC-GLUCOSE METER 148 mg/dL 70-110 H TESTED AT [facility] 6720 (BEAKER) (test code = T[place]DE D[place] 1538) [address] [id number] 08:08:00 Test Item Value Reference Range Interpretation Comments MAGNESIUM (BEAKER) (test code = 1.4 mg/dL 1.6-2.6 L 627) BASIC METABOLIC [id number] 08:08:00 Test Item Value Reference Range Interpretation [...] code = 413) URINALYSIS W/ REFLEX URINE [id number] 06:01:00 Test Item Value Reference Range Interpretation [...] = 1585) Many SOURCE(BEAKER) (test code = 2795) RAD, CHEST, 1 VIEW, NON [id number] 23:05:00Reason for exam:->chest painShould this be performed [...] The bony thorax is unremarkable. Signed: Richard [facility] Verified Date/Time: 08/24/2018 23:05:27 Reading Location: [facility] C013Y CT Body Reading Room TROPONIN [id number] 22:50:00 Test Item Value Reference Range Interpretation [...] acidosis, acute neurological disease, and persistent tachyarrhythmia.POCT-GLUCOSE [id number] 20:56:00 Test Item Value Reference Range Interpretation Comments POC-GLUCOSE METER 128 mg/dL 70-110 H TESTED AT [facility] 6720 (BEAKER) (test code = [place] 0471) [address] POCT-GLUCOSE [id number] 18:30:00 Test Item Value Reference Range Interpretation Comments POC-GLUCOSE METER 109 mg/dL 70-110 TESTED AT [facility] 6720 (BEAKER) (test code = [place] 1538) [address] POCT-GLUCOSE [id number] 12:21:00 Test Item Value Reference Range Interpretation Comments POC-GLUCOSE METER 184 mg/dL 70-110 H TESTED AT [facility] 6720 (BEAKER) (test code = [place] 1538) [address] POCT-GLUCOSE [id number] 09:03:00 Test Item Value Reference Range Interpretation Comments POC-GLUCOSE METER 218 mg/dL 70-110 H TESTED AT [facility] 6720 (BEAKER) (test code = TUNDE D[place] 1538) [address] CBC W/PLT COUNT & AUTO [id number] 02:49:00 Test Item Value Reference Range Interpretation [...] (BEAKER) (test code = 2801) LACTIC ACID, [id number] 02:47:00 Test Item Value Reference Range Interpretation Comments LACTATE BLOOD VENOUS (2) (BEAKER) 0.8 mmol/L 0.5-2.2 (test code = 2872) TROPONIN [id number] 02:36:00 Test Item Value Reference Range Interpretation [...] failure, acidosis, acute neurological disease, and persistent tachyarrhythmia.[id number] 02:32:00 Test Item Value Reference Range Interpretation Comments MAGNESIUM (BEAKER) (test code = 1.6 mg/dL 1.6-2.6 627) BASIC METABOLIC [id number] 02:32:00 Test Item Value Reference Range Interpretation [...] (test code = 697) EGFR (BEAKER) (test 106 mL/min/1.73 ESTIM ATED GFR IS code = 1092) sq m NOT ACCURATE CREATININE CLEARANCE IN PREDICTING GLOMERULAR FILTRATION RATE . ESTIMATED GFR I S NOT APPLICABLE FOR DIALYSIS PATIEN TS. OSMOLALITY, [id number] 00:11:00 Test Item Value Reference Range Interpretation Comments OSMOLALITY URINE 660 mOsm/kg 40-1,400 Test perfor med at ([facility]) (test code = [facility] 614) POCT-GLUCOSE [id number] 21:07:00 Test Item Value Reference Range Interpretation Comments POC-GLUCOSE METER 187 mg/dL 70-110 H TESTED AT [facility] 6720 ([facility]) (test code = TUNDE Dickey [facility] 1538) [address] POCT-GLUCOSE [id number] 17:26:00 Test Item Value Reference Range Interpretation Comments POC-GLUCOSE METER 145 mg/dL 70-110 H TESTED AT [facility] 6720 ([facility]) (test code = TUNDE Dickey [facility] 1538) 15691 POCT-GLUCOSE [id number] 15:03:00 Test Item Value Reference Range Interpretation Comments POC-GLUCOSE METER 107 mg/dL 70-110 TESTED AT [facility] 6720 ([facility]) (test code = TUNDE Dickey [facility] 1538) 05463 POCT-GLUCOSE [id number] 12:27:00 Test Item Value Reference Range Interpretation Comments POC-GLUCOSE METER 118 mg/dL 70-110 H TESTED AT [facility] 6720 ([facility]) ([facility] 1538) [address] POCT-GLUCOSE [id number] 08:16:00 Test Item Value Reference Range Interpretation Comments POC-GLUCOSE METER 121 mg/dL 70-110 H TESTED AT [facility] 6720 (BEAKER) (test code = TUNDE D[place] 1538) [address] POCT-GLUCOSE [id number] 07:54:00 Test Item Value Reference Range Interpretation Comments POC-GLUCOSE METER 115 mg/dL 70-110 H TESTED AT [facility] 6720 (BEAKER) (test code = TUNDE D[place] 1538) [address] [id number] 06:43:00 Test Item Value Reference Range Interpretation Comments PROCALCITONIN (BEAKER) (test code 7.46 ng/mL <0.05 H = 3036) SEPSIS RISK (ng/mL)Low: 0.05-0.50Intermediate: 0.51-2.00High: >=[id number] 05:35:00 Test Item Value Reference Range Interpretation Comments PHOSPHORUS (BEAKER) (test code = 2.3 mg/dL 2.3-4.7 604) [id number] 05:35:00 Test Item Value Reference Range Interpretation Comments MAGNESIUM (BEAKER) (test code = 1.8 mg/dL 1.6-2.6 627) BASIC METABOLIC [id number] 05:35:00 Test Item Value Reference Range Interpretation [...] APPLICABLE FOR DIALYSIS PATIEN TS. LACTIC ACID, [id number] 05:30:00 Test Item Value Reference Range Interpretation Comments LACTATE BLOOD VENOUS (2) (BEAKER) 0.7 mmol/L 0.5-2.2 (test code = 2872) CBC W/PLT COUNT & AUTO [id number] 05:21:00 Test Item Value Reference Range Interpretation [...] PERCENT (BEAKER) (test code = 2801) HEMOGLOBIN [id number] 01:14:00 Test Item Value Reference Range Interpretation Comments HEMOGLOBIN A1C (BEAKER) (test code = > % 4.3-6.1 H 368) POCT-GLUCOSE [id number] 22:04:00 Test Item Value Reference Range Interpretation Comments POC-GLUCOSE METER 133 mg/dL 70-110 H TESTED AT [facility] 6720 (BEAKER) (test code = [place] 1538) [address] [id number] 21:18:00 Test Item Value Reference Range Interpretation Comments MAGNESIUM (BEAKER) (test code = 1.8 mg/dL 1.6-2.6 627) BASIC METABOLIC [id number] 21:16:00 Test Item Value Reference Range Interpretation [...] S NOT APPLICABLE FOR DIALYSIS PATIEN TS. [id number] 21:02:00 Test Item Value Reference Range Interpretation Comments PHOSPHORUS (BEAKER) (test code = 2.7 mg/dL 2.3-4.7 604) POCT-GLUCOSE [id number] 18:03:00 Test Item Value Reference Range Interpretation Comments POC-GLUCOSE METER 157 mg/dL 70-110 H TESTED AT [facility] 6720 (BEAKER) (test code = TUNDE Dic[place] 1538) [address] POCT-GLUCOSE [id number] 16:40:00 Test Item Value Reference Range Interpretation Comments POC-GLUCOSE METER 176 mg/dL 70-110 H TESTED AT [facility] 6720 (BEAKER) (test code = [facility] [place] 1538) [address] [id number] 16:17:00 Test Item Value Reference Range Interpretation Comments PHOSPHORUS (BEAKER) (test code = 2.3 mg/dL 2.3-4.7 604) [id number] 16:17:00 Test Item Value Reference Range Interpretation Comments MAGNESIUM (BEAKER) (test code = 1.8 mg/dL 1.6-2.6 627) BASIC METABOLIC [id number] 16:17:00 Test Item Value Reference Range Interpretation [...] NOT APPLICABLE FOR DIALYSIS PATIEN TS. POCT-GLUCOSE [id number] 15:58:00 Test Item Value Reference Range Interpretation Comments POC-GLUCOSE METER 176 mg/dL 70-110 H TESTED AT [facility] 6720 (BEAKER) (test code = TUNDE Dic[place] 1538) [address] POCT-GLUCOSE [id number] 14:22:00 Test Item Value Reference Range Interpretation Comments POC-GLUCOSE METER 187 mg/dL 70-110 H TESTED AT [facility] 6720 (BEAKER) (test code = [facility] Noble [place] 1538) [address] BASIC METABOLIC [id number] 14:04:00 Test Item Value Reference Range Interpretation [...] S NOT APPLICABLE FOR DIALYSIS PATIEN TS. [id number] 14:01:00 Test Item Value Reference Range Interpretation Comments PHOSPHORUS (BEAKER) (test code = 2.7 mg/dL 2.3-4.7 604) [id number] 14:01:00 Test Item Value Reference Range Interpretation Comments MAGNESIUM (BEAKER) (test code = 1.8 mg/dL 1.6-2.6 627) POCT-GLUCOSE [id number] 13:14:00 Test Item Value Reference Range Interpretation Comments POC-GLUCOSE METER 193 mg/dL 70-110 H TESTED AT [facility] 6720 (BEAKER) (test code = [facility] 1538) [address] POCT-GLUCOSE [id number] 12:32:00 Test Item Value Reference Range Interpretation Comments POC-GLUCOSE METER 210 mg/dL 70-110 H TESTED AT [facility] 67 ([facility]) (test [facility] = [facility] [place] 1538) [address] [id number] 12:12:00 Test Item Value Reference Range Interpretation Comments FERRITIN (BEAKER) (test code = 361) 20 ng/mL 5-275 POCT-GLUCOSE [id number] 11:20:00 Test Item Value Reference Range Interpretation Comments POC-GLUCOSE METER 216 mg/dL 70-110 H TESTED AT [place] [address] (BEAKER) (test code = [facility] Noble [facility] 1538) [address] POCT-GLUCOSE [id number] 11:19:00 Test Item Value Reference Range Interpretation Comments POC-GLUCOSE METER 218 mg/dL 70-110 H TESTED AT [place] [address] ([facility]) (test code = [facility] 1538) [address] BASIC METABOLIC [id number] 09:50:00 Test Item Value Reference Range Interpretation [...] S NOT APPLICABLE FOR DIALYSIS PATIEN TS. [id number] 09:39:00 Test Item Value Reference Range Interpretation Comments PHOSPHORUS (BEAKER) (test code = 2.2 mg/dL 2.3-4.7 L 604) [id number] 09:39:00 Test Item Value Reference Range Interpretation Comments MAGNESIUM (BEAKER) (test code = 2.3 mg/dL 1.6-2.6 627) POCT-GLUCOSE [id number] 09:22:00 Test Item Value Reference Range Interpretation Comments POC-GLUCOSE METER 238 mg/dL 70-110 H TESTED AT [place] [address] ([facility]) (test code = TUNDE D[place] 1538) [address] POCT-GLUCOSE [id number] 08:33:00 Test Item Value Reference Range Interpretation Comments POC-GLUCOSE METER 234 mg/dL 70-110 H TESTED AT [place] [address] ([facility]) (test code = [facility] Noble [facility] 1538) [address]60 POCT-GLUCOSE [id number] 07:09:00 Test Item Value Reference Range Interpretation Comments POC-GLUCOSE METER 236 mg/dL 70-110 H TESTED AT [place] [address] ([facility]) (test code = [facility] Noble [facility] 1538) [address] [id number] 06:34:00 Test Item Value Reference Range Interpretation Comments PROCALCITONIN (BEAKER) (test code 17.26 ng/mL <0.05 = 3036) SEPSIS RISK (ng/mL)Low: 0.05-0.50Intermediate: 0.51-2.00High: >=2.01POCT-GLUCOSE [id number] 06:22:00 Test Item Value Reference Range Interpretation Comments POC-GLUCOSE METER 199 mg/dL 70-110 H TESTED AT [place] [address] ([facility]) (test code = [facility] [place] 1538) [address] POCT-GLUCOSE [id number] 06:22:00 Test Item Value Reference Range Interpretation Comments POC-GLUCOSE METER 183 mg/dL 70-110 H TESTED AT [place] [address] ([facility]) (test code = [facility] [place] 1538) [address] BASIC METABOLIC [id number] 04:56:00 Test Item Value Reference Range Interpretation [...] PATIEN TS. CBC W/PLT COUNT & AUTO [id number] 04:52:00 Test Item Value Reference Range Interpretation [...] 0-1 PERCENT (BEAKER) (test code = 2801) [id number] 04:45:00 Test Item Value Reference Range Interpretation Comments PHOSPHORUS (BEAKER) (test code = 1.9 mg/dL 2.3-4.7 L 604) [id number] 04:45:00 Test Item Value Reference Range Interpretation [...] L (test code = 2590) BLOOD GAS, [id number] 04:40:00 Test Item Value Reference Range Interpretation [...] code = 1819) 21.0 % LACTIC ACID, [id number] 04:32:00 Test Item Value Reference Range Interpretation Comments LACTATE BLOOD VENOUS (2) (BEAKER) 0.7 mmol/L 0.5-2.2 (test code = 2872) POCT-GLUCOSE [id number] 04:09:00 Test Item Value Reference Range Interpretation Comments POC-GLUCOSE METER 143 mg/dL 70-110 H TESTED AT [place] [address] ([facility]) (test code = TUNDE Dickey [facility] 1538) [address] POCT-GLUCOSE [id number] 03:19:00 Test Item Value Reference Range Interpretation Comments POC-GLUCOSE METER 140 mg/dL 70-110 H TESTED AT [place] [address] ([facility]) (test code = TUNDE Dickey [facility] 1538) [address] POCT-GLUCOSE [id number] 02:25:00 Test Item Value Reference Range Interpretation Comments POC-GLUCOSE METER 150 mg/dL 70-110 H TESTED AT [place] [address] ([facility]) (test code = TUNDE Dickey [facility] 1538) [address] BASIC METABOLIC [id number] 01:22:00 Test Item Value Reference Range Interpretation [...] NOT APPLICABLE FOR DIALYSIS PATIEN TS. TROPONIN [id number] 01:16:00 Test Item Value Reference Range Interpretation [...] acidosis, acute neurological disease, and persistent tachyarrhythmia.POCT-GLUCOSE [id number] 01:15:00 Test Item Value Reference Range Interpretation Comments POC-GLUCOSE METER 155 mg/dL 70-110 H TESTED AT [facility] 6720 ([employer]) (test [facility] = [facility] [place] 1538) [address] [id number] 01:08:00 Test Item Value Reference Range Interpretation Comments PHOSPHORUS (BEAKER) (test code = 2.1 mg/dL 2.3-4.7 L 604) [id number] 01:08:00 Test Item Value Reference Range Interpretation Comments MAGNESIUM (BEAKER) (test code = 1.7 mg/dL 1.6-2.6 627) POCT-GLUCOSE [id number] 00:29:00 Test Item Value Reference Range Interpretation Comments POC-GLUCOSE METER 161 mg/dL 70-110 H TESTED AT [facility] 6720 ([facility] (test code = [facility] [place] 1538) [address] POCT-GLUCOSE [id number] 23:10:00 Test Item Value Reference Range Interpretation Comments POC-GLUCOSE METER 172 mg/dL 70-110 H TESTED AT [facility] 6720 ([employer]) (test code = TUNDE [place] 1538) [address] POCT-GLUCOSE [id number] 22:46:00 Test Item Value Reference Range Interpretation Comments POC-GLUCOSE METER 206 mg/dL 70-110 H TESTED AT [facility] 6720 ([facility]) (test code = [place] 1537) [address] STREP PNEUMONIAE [id number] 21:51:00 Test Item Value Reference Range Interpretation Comments STREP PNEUMONIAE Presumptive negative Presumptive negative ANTIGEN (AKER) for pneumococcal for pneumococcal (test code = 1615) pneumonia - see pneumonia - see comment commen Presumptive negative for pneumococcal pneumonia, suggesting no current or recent pneumococcal infection. Infection due to S. pneumoniae cannot be ruled out since the antigen present in the sample may be below the detection limit of the test. LEGIONELLA ANTIGEN, [id number] 21:50:00 Test Item Value Reference Range Interpretation Comments L. PNEUMOPHILA Negative - see Negative fo r L. SEROGP 1 UR AG comment pneumophila ([facility]) (test code serogrou p 1 antigen, = 1156) suggesting no r ecent or current infe ction with this serog roup. Legionellosis c annot be ruled out si nce other serogroup s and species may cau se disease. LACTIC ACID, [id number] 21:31:00 Test Item Value Reference Range Interpretation Comments LACTATE BLOOD VENOUS (2) (BEAKER) 1.1 mmol/L 0.5-2.2 (test code = 3492) BASIC METABOLIC [id number] 21:28:00 Test Item Value Reference Range Interpretation [...] S NOT APPLICABLE FOR DIALYSIS PATIEN TS. [id number] 21:27:00 Test Item Value Reference Range Interpretation Comments PHOSPHORUS (BEAKER) (test code = 2.1 mg/dL 2.3-4.7 L 604) [id number] 21:27:00 Test Item Value Reference Range Interpretation Comments MAGNESIUM (BEAKER) (test code = 2.0 mg/dL 1.6-2.6 627) POCT-GLUCOSE [id number] 20:35:00 Test Item Value Reference Range Interpretation Comments POC-GLUCOSE METER 218 mg/dL 70-110 H TESTED AT [facility] 6720 (BEAKER) (test code = [place] 1538) [address] CREATININE, RANDOM [id number] 19:51:00 Test Item Value Reference Range Interpretation Comments CREATININE URINE (BEAKER) (test 25.6 mg/dL code = 375) Reference Range: No NormalsPROTEIN, RANDOM [id number] 19:51:00 Test Item Value Reference Range Interpretation Comments PROTEIN, URINE (BEAKER) (test code = 10 mg/dL 0-14 1569) SODIUM, RANDOM [id number] 19:51:00 Test Item Value Reference Range Interpretation Comments SODIUM URINE (BEAKER) (test code = 145 meq/L 243) Reference Range: No NormalsU/S, ABDOMINAL, [id number] 19:48:00Reason for exam:->nausea,vomitting,AKIShould this be performed at [...] MDReport Verified Date/Time: 08/21/2018 19:48:18 Reading Location: [facility] C013W Consult Reading Room Electronically signed by: MYNOR FOSTER M.D. on 0 08/21/2018 07:48 PMLIPID [id number] 19:36:00 Test Item Value Reference Range Interpretation Comments TRIGLYCERIDES ([facility]) (test code = 189 mg/dL 540) CHOLESTEROL ([facility]) (test code = 148 mg/dL 631) HDL CHOLESTEROL (AKER) (test code 30 mg/dL = 976) LDL CHOLESTEROL CALCULATED ([facility]) 80 mg/dL (test code = 633) Triglyceride Reference Range: Low Risk <150 Borderline 150-199 High Risk 200-499 Very High Risk >=500Cholesterol Reference Range: Low Risk <200 Borderline 200-239 High Risk >240HDL Cholesterol Reference Range: Low Risk >=60 High Risk <40LDL Cholesterol Reference Range: Optimal <100 Near Optimal 100-129 Borderline 130-159 High 160-189 Very High >=190LACTIC ACID, [id number] 19:33:00 Test Item Value Reference Range Interpretation Comments LACTATE BLOOD VENOUS (2) ([facility]) 1.1 mmol/L 0.5-2.2 (test code = 2872) POCT-GLUCOSE [id number] 19:13:00 Test Item Value Reference Range Interpretation Comments POC-GLUCOSE METER 257 mg/dL 70-110 H TESTED AT [place] [address] ([facility]) (test code = [facility] 1538) [address] POCT-GLUCOSE [id number] 18:23:00 Test Item Value Reference Range Interpretation Comments POC-GLUCOSE METER 308 mg/dL 70-110 H TESTED AT [place] [address] ([facility]) (test code = [facility] 1538) 39351 POCT-GLUCOSE [id number] 17:27:00 Test Item Value Reference Range Interpretation Comments POC-GLUCOSE METER 324 mg/dL 70-110 H TESTED AT [place] [address] (BEAKER) (test code = [place] 1538) [address] [id number] 17:26:00 Test Item Value Reference Range Interpretation Comments PROCALCITONIN (BEAKER) (test code 21.30 ng/mL <0.05 = 3036) SEPSIS RISK (ng/mL)Low: 0.05-0.50Intermediate: 0.51-2.00High: >=2.01TROPONIN [id number] 16:41:00 Test Item Value Reference Range Interpretation [...] acute neurological disease, and persistent tachyarrhythmia.BASIC METABOLIC [id number] 16:39:00 Test Item Value Reference Range Interpretation [...] GFR I S NOT APPLICABLE FOR DIALYSIS PATILISSET TS. BLOOD GAS, [id number] 16:33:00 Test Item Value Reference Range Interpretation [...] (BEAKER) (test code = 1819) 21.0 % [id number] 16:32:00 Test Item Value Reference Range Interpretation Comments PHOSPHORUS (BEAKER) (test code = 3.0 mg/dL 2.3-4.7 604) [id number] 16:32:00 Test Item Value Reference Range Interpretation Comments MAGNESIUM (BEAKER) (test code = 1.9 mg/dL 1.6-2.6 627) LACTIC ACID, [id number] 16:30:00 Test Item Value Reference Range Interpretation Comments LACTATE BLOOD VENOUS (2) (BEAKER) 1.1 mmol/L 0.5-2.2 (test code = 2872) POCT-GLUCOSE [id number] 16:07:00 Test Item Value Reference Range Interpretation Comments POC-GLUCOSE METER 292 mg/dL 70-110 H TESTED AT [facility] 6720 (BEAKER) (test code = [place] 1538) [address] RAD, ABDOMEN/KUB, 1 VIEW [id number] 15:53:00Reason for exam:- >nausea,vomittingShould this be performed at the bedside?->YesFINAL REPORT Abdomen one view Comparison: None. Reason for exam: nausea,vomitting Findings: Bowel gas pattern is nonspecific, nonobstructive. No free air is identified. The visualized osseous structures are unremarkable. Signed: Kandy Black Verified Date/Time: 08/21/201815:53:49 Reading Location: [facility] C013W Consult Reading Room POCT-GLUCOSE [id number] 15:02:00 Test Item Value Reference Range Interpretation Comments POC-GLUCOSE METER 284 mg/dL 70-110 H TESTED AT [facility] 6720 (BEAKER) (test code = [place] 1538) [address] RESPIRATORY PANEL [id number] 14:27:00 Test Item Value Reference Range Interpretation [...] Equivocal CHLAMYDOPHILA PNEUMONIAE Not detected Not detected, (AKER) (test code = 3206) Equivocal MYCOPLASMA PNEUMONIAE Not detected Not detected, (AKER) (test code = 3207) Equivocal Other viruses and bacteria not targeted by this PCR panel cannot be excluded; therefore clinical correlation and follow up of serology, culture results, and other molecular studies is required. The results are not intended to be used as the sole means for clinical diagnosis or patient management decisions. This sample was tested at the [facility] using the OffermaticaArray Respiratory Panel. It is FDA cleared and has been verified and approved by the [facility] for clinical use on nasopharyngeal swab specimens.The performance of the FilmArrayRP has not been established in individuals who received influenza vaccine. Recent administration ofa nasal influenza vaccine may cause false positive results for Influenza A and/orInfluenza B.POCT-GLUCOSE [id number] 14:07:00 Test Item Value Reference Range Interpretation Comments POC-GLUCOSE METER 286 mg/dL 70-110 H TESTED AT [place] [address] ([facility]) (test code = [facility] 1538) [address] POCT-GLUCOSE [id number] 13:21:00 Test Item Value Reference Range Interpretation Comments POC-GLUCOSE METER 275 mg/dL 70-110 H TESTED AT [place] [address] ([facility]) (test code = [facility] 1538) [address] BLOOD GAS, [id number] 13:10:00 Test Item Value Reference Range Interpretation [...] code = 1819) 21.0 % BASIC METABOLIC [id number] 12:58:00 Test Item Value Reference Range Interpretation [...] S NOT APPLICABLE FOR DIALYSIS PATIEN TS. [id number] 12:55:00 Test Item Value Reference Range Interpretation Comments PHOSPHORUS (BEAKER) (test code = 1.9 mg/dL 2.3-4.7 L 604) LACTIC ACID, [id number] 12:54:00 Test Item Value Reference Range Interpretation Comments LACTATE BLOOD VENOUS (2) (BEAKER) 2.0 mmol/L 0.5-2.2 (test code = 2872) POCT-GLUCOSE [id number] 12:25:00 Test Item Value Reference Range Interpretation Comments POC-GLUCOSE METER 337 mg/dL 70-110 H TESTED AT [facility] 6720 (BEAKER) (test code = [place] 1538) [id number] POCT-GLUCOSE [id number] 11:20:00 Test Item Value Reference Range Interpretation Comments POC-GLUCOSE METER 282 mg/dL 70-110 H TESTED AT [facility] 6720 (BEAKER) (test code = [place] 1538) [id number] URINALYSIS W/ REFLEX URINE [id number] 11:16:00 Test Item Value Reference Range Interpretation [...] = 1574) Rare SOURCE(BEAKER) (test code = 2798) SCREEN, [id number] 11:16:00 Test Item Value Reference Range Interpretation Comments TEST URINE (BEAKER) (test Negative code = 583) COMPREHENSIVE METABOLIC [id number] 11:15:00 Test Item Value Reference Range Interpretation [...] NOT APPLICABLE FOR DIALYSIS PATIEN TS. KETONE, [id number] 11:15:00 Test Item Value Reference Range Interpretation Comments KETONES, BLOOD (BEAKER) (test code 4.9 mmol/L <0.4 H = 1103) TSH/FREE T4 IF [id number] 11:10:00 Test Item Value Reference Range Interpretation Comments THYROID STIMULATING HORMONE 0.85 uIU/mL 0.35-4.94 (BEAKER) (test code = 772) TROPONIN [id number] 10:56:00 Test Item Value Reference Range Interpretation [...] failure, acidosis, acute neurological disease, and persistent tachyarrhythmia.[id number] 10:53:00 Test Item Value Reference Range Interpretation Comments PHOSPHORUS (BEAKER) (test code = 2.9 mg/dL 2.3-4.7 604) [id number] 10:53:00 Test Item Value Reference Range Interpretation Comments MAGNESIUM (BEAKER) (test code = 1.5 mg/dL 1.6-2.6 L 627) [id number] 10:53:00 Test Item Value Reference Range Interpretation Comments AMYLASE (BEAKER) (test code = 349) 16 U/L 25-125 L [id number] 10:53:00 Test Item Value Reference Range Interpretation Comments LIPASE (BEAKER) (test code = 749) 40 U/L 8-78 PROTHROMBIN [id number] 10:49:00 Test Item Value Reference Range Interpretation Comments PROTIME (BEAKER) (test code = 14.9 seconds 11.7-14.7 H 759) INR (BEAKER) (test code = 370) 1.2 <=5.9 RECOMMENDED COUMADIN/WARFARIN INR THERAPY RANGESSTANDARD DOSE: 2.0 - 3.0 Includes: PROPHYLAXIS forvenous thrombosis, systemic embolization; TREATMENT for venous thrombosis and/or pulmonary embolus.HIGH RISK: Target INR is 2.5-3.5 for patients with mechanical heart valves.LACTIC ACID, [id number] 10:47:00 Test Item Value Reference Range Interpretation Comments LACTATE BLOOD VENOUS (2) (BEAKER) 3.0 mmol/L 0.5-2.2 H (test code = 2872) POCT-GLUCOSE [id number] 10:45:00 Test Item Value Reference Range Interpretation Comments POC-GLUCOSE METER 355 mg/dL 70-110 H Notified R Gris FUENTES/TESTED (BEAKER) (test code = AT [facility] 67[address] [facility] 1538) [place] 7703 0 CBC W/PLT COUNT & AUTO [id number] 10:36:00 Test Item Value Reference Range Interpretation [...] (test code = 2801) RAPID INFLUENZA A&B [id number] 10:29:00 Test Item Value Reference Range Interpretation Comments RAPID INFLUENZA A AG (BEAKER) Negative Negative, Inconclusive (test code = 1622) RAPID INFLUENZA B AG (BEAKER) Negative Negative, Inconclusive (test code = 1623) RAD, CHEST, 1 VIEW, NON [id number] 10:24:00?pnaReason for exam:->chest pain,sobShould this be performed at the bedside?->YesFINAL REPORT Chest one view. Clinical history: chest pain,sob Comparison: No priors Discussion: A frontal chest is provided. Cardiomediastinal contours are unremarkable, allowing for portable technique. There is no evidence of vascular congestion, consolidation, pneumothorax orsignificant effusion. No acute bony abnormality. Signed: Kandy Black Verified Date/Time: 08/21/2018 10:24:52 Reading Location: [facility] Radiology Reading Room BLOOD GAS, [id number] 10:17:00 Test Item Value Reference Range Interpretation [...] (test code = 1819) 21.0 % POCT-GLUCOSE [id number] 09:47:00 Test Item Value Reference Range Interpretation Comments POC-GLUCOSE METER 430 mg/dL 70-110 Notified R N MD/TESTED (YOHANA) (test code = AT [facility] [address] [facility] 5538) [facility] 7703 0
[2021-04-27 17:33] LABS: Absolute Lymphocytes (CBC) 2.3 K/uL (0.7-4.9); Hematocrit 43.4 % (36.0-45.0); Lymphocytes % 29.5 % (15.3-44.8); MPV 8.5 fL (7.6-11.3); Protime INR 0.89; RBC Red Blood Cell Count 4.74 M/uL (3.86-4.86)
[2021-04-27 17:55] LABS: Albumin 3.2 g/dL (3.4-5.0); Bilirubin Direct 0.1 mg/dL (0-0.2); Bilirubin Total 0.5 mg/dL (0.2-1.0); Magnesium 1.8 mg/dL (1.8-2.4); Potassium 3.4 mmol/L (3.5-5.1); Protein, Total 6.7 g/dL (6.4-8.2)
[2021-04-27 17:59] LABS: Troponin High Sensitivity 117.3 pg/mL (<58.9)
[2021-04-27 18:13] LABS: Urine Blood Negative (Negative); Urine Glucose 3+ (Negative); Urine Protein 1+ (Negative); Urine Specific Gravity >=1.030 (1.005-1.030); Urine pH 5.5 (5.0-7.0)
[2021-04-27] MEDS ORDERED: levETIRAcetam 1,000 MG in NA CHLORIDE 0.9% 100 ML IV ONE (18:15)
[2021-04-27] MEDS ORDERED: CEFAZOLIN/NS 1gm 1 GM/50 ML BAG IVPB ONE (18:15)
--- NOTE | 2021-04-27 18:18 | RAD REPORT ---
EXAM DESCRIPTION: CT - Head C Spine Cap Julianne Trejo - 04/27/2021 5:55 pm CLINICAL HISTORY: unresponsive COMPARISON: No comparisons TECHNIQUE: CT head without contrast. CT cervical spine without contrast with coronal and sagittal reformatted images. CT chest, abdomen and pelvis with coronal and sagittal reformatted images of the spine. All CT scans are performed using dose optimization technique as appropriate and may include automated exposure control or mA/KV adjustment according to patient size. FINDINGS: CT HEAD WITHOUT CONTRAST: No intracranial hemorrhage, hydrocephalus or extra-axial fluid collection. No acute large vascular te rritory infarct. The paranasal sinuses and mastoids are clear. The calvarium is intact. CT CERVICAL SPINE WITHOUT CONTRAST: No fracture or subluxation. The prevertebral soft tissues are normal in thickness. CT CHEST, ABDOMEN, PELVIS: Thorax: Chest Wall: No abnormal mass Lungs: Mild dependent atelectasis. Mild interlobular septal thickening. Endotracheal tube above the c michel. Pleura: No effusions or pneumothorax. Ann/Mediastinum: No lymphadenopathy. Aorta/Pulmonary Arteries: Unremarkable Heart: Normal size. Abdomen/Pelvis: Liver: No acute abnormality or suspicious lesions. Biliary: No biliary ductal dilatation. Stomach: No significant focal abnormality. NG tube in the stomach. Duodenum: No significant focal abnormality. Pancreas: No significant abnormality. Spleen: No significant abnormality. Adrenal: No suspicious lesions. Kidney/ureter: No hydronephrosis. No renal calculi. Retroperitoneum: No retroperitoneal adenopathy. Vascular: No aneurysm. Bowel: No significant focal abnormality. Normal appendix. Peritoneum: No ascites or free air. Bladder: Decompressed via Palmer catheter. Reproductive: No adnexal masses. Bones: No acute fracture. Other: n/a IMPRESSION: No evidence of significant trauma. No acute findings within the head, abdomen, or pelvis. Mild interstitial edema.
[2021-04-27 18:35] LABS: Barbiturates NEGATIVE (NEGATIVE); Benzodiazepines NEGATIVE (NEGATIVE); Cocaine NEGATIVE (NEGATIVE); METHAMPHETAM NEGATIVE (NEGATIVE); Methadone NEGATIVE (NEGATIVE); Opiates NEGATIVE (NEGATIVE); Phencyclidine NEGATIVE (NEGATIVE); THC Cannibis POSITIVE (NEGATIVE)
--- NOTE | 2021-04-27 18:41 | EDPHYS ---
Physician Documentation [facility] Name: Michael Horne Age: 45 yrs Sex: Female : 1975 Arrival Date: 04/27/2021 Time: 17:20 Bed 15 Private MD: ED Physician Maximiliano Cohen HPI: 04/27 17:45 This 45 yrs old Female presents to ER via Unassigned with complaints of Unresponsive. cp 17:45 The patient's problem is reported as altered mental status, unresponsive. Onset: The cp symptoms/episode began/occurred at an unknown time. found by family member prior to arrival. Duration: The episode is continuous. Associated signs and symptoms: Pertinent negatives:. 17:45 Patient's baseline: Neuro: alert and fully oriented, Motor: no deficits, Ambulation: cp walks without assistance, Speech: normal. Historical: - PMHx: 18:01 Anxiety; Depression; Diabetes - IDDM; Hypertension; nerve pain; ss - Immunization history:: Adult Immunizations unknown. - Social history:: Smoking status: unknown. ROS: 15:48 Neuro: Positive for altered mental status. cp 15:48 Constitutional: Negative for fever. cp 15:48 Unable to obtain ROS due to altered mental status. Exam: 18:17 Head/Face: Normocephalic, atraumatic. cp 18:17 Constitutional: The patient appears non-toxic, well developed, well nourished. 18:17 Eyes: Pupils: are fixed and dilated, Conjunctiva: normal, no exudate, no injection, Sclera: no appreciated abnormality, Lids and lashes: appear normal, bilaterally. 18:17 ENT: External ear(s): are unremarkable, Nose: is normal, Mouth: Lips: dry, Oral mucosa: dry, Posterior pharynx: Airway: no evidence of obstruction, patent. 18:17 Neck: ROM/movement: nuchal rigidity, is not appreciated. 18:17 Chest/axilla: Inspection: normal. 18:17 Cardiovascular: Rate: tachycardic, Rhythm: regular, Edema: is not appreciated, JVD: is not appreciated. 18:17 Respiratory: moderate respiratory distress is noted, Respirations: shallow respirations, that is moderate, Breath sounds: are clear throughout, no decreased breath sounds, no stridor, no wheezing. 18:17 Abdomen/GI: Inspection: abdomen appears normal, Palpation: soft, in all quadrants, rebound tenderness, is not appreciated. 18:17 Skin: cellulitis, is not appreciated, no rash present. 19:02 ECG was reviewed by the Attending Physician. cp 20:20 Radiologist reports: no acute and/or traumatic findings. CT head angio and CT neck cp angio negative for large vessel occlusion Vital Signs: 17:31 BP 103 / 62; Pulse 128; ss 18:40 BP 112 / 83; Pulse 125; Resp 20; Pulse Ox 100% on ETT vent; ss 19:50 BP 102 / 76 LA Supine (auto/reg); Pulse 119 MON; Resp 20 S; Pulse Ox 100% on ETT vent; tk1 20:00 BP 109 / 72 LA Supine (/reg); Pulse 149 MON; Resp 28 A; Pulse Ox 100% on ETT vent; tk1 20:21 BP 92 / 70 LA Supine (/reg); Pulse 116 LA; Resp 20 A; Pulse Ox 100% on ETT vent; tk1 20:45 BP 112 / 83; Pulse 113; Resp 20 A; Pulse Ox 100% on ETT vent; Weight 68.04 kg (R); mw2 21:00 BP 102 / 78 LA Supine (auto/reg); Pulse 114 MON; Resp 20 A; Pulse Ox 100% on ETT vent; tk1 22:00 BP 115 / 89 LA Supine (auto/reg); Pulse 118 LA; Resp 20 A; Pulse Ox 100% on ETT vent; tk1 Procedures: 18:40 Intubation: Ventilated with 100% NRB prior to procedure. O2 saturation prior to cp procedure was 100 %. Intubated orally using # 4 Silver blade with 7.5 mm ETT. Successful on second attempt. Ventilated with ventilator. Tube secured with ETT da silva at center of mouth measured 23 cm at lip. Placement verified by CO2 detector with (+) color change, auscultating bilateral breath sounds, O2 saturation after procedure was 100 %. Patient tolerated well. MDM: 17:47 Patient medically screened. 20:21 Data reviewed: vital signs, nurses notes, lab test result(s), EKG, radiologic studies, CT scan, plain films. 20:21 Physician consultation: was contacted at 19:30, regarding regarding transfer, to [facility]. consult, patient's condition, spoke with DR Tran, neurologist, who will accept patient. 04/27 17:27 Order name: Basic Metabolic Panel 04/27 17:27 Order name: CBC with Diff 04/27 17:27 Order name: LFT's 04/27 17:27 Order name: Magnesium; Complete Time: 18:07 04/27 17:27 Order name: NT PRO-BNP; Complete Time: 18:07 04/27 17:27 Order name: PT-INR; Complete Time: 18:07 04/27 17:27 Order name: Troponin HS; Complete Time: 18:07 04/27 17:27 Order name: Basic Metabolic Panel; Complete Time: 18:07 EDMS 04/27 18:07 Interpretation: Normal except: NA 133; K 3.4; GLUC 114; BUN 21; GFR 67. cp 04/27 17:27 Order name: CBC with Automated Diff; Complete Time: 18:07 EDMS 04/27 17:28 Order name: Liver (Hepatic) Function; Complete Time: 18:07 EDMS 04/27 17:34 Order name: Glucose, Ancillary Testing; Complete Time: 18:07 EDMS 04/27 17:35 Order name: UDS 04/27 17:35 Order name: Blood Culture Adult (2) 04/27 17:27 Order name: XRAY Chest (1 view); Complete Time: 19:04 04/27 17:34 Order name: CT Traumagram (Head C Spine CAP W Con); Complete Time: 18:38 04/27 17:35 Order name: Lactate; Complete Time: 18:07 04/27 17:35 Order name: Procalcitonin; Complete Time: 18:19 04/27 17:36 Order name: Urine Drug Screen; Complete Time: 18:38 EDMS 04/27 18:38 Interpretation: Normal except: THC POSITIVE. cp 04/27 18:08 Order name: Asprin; Complete Time: 21:53 cp 04/27 18:08 Order name: Acetaminophen; Complete Time: 18:38 cp 04/27 18:08 Order name: LAB Add On cp 04/27 18:12 Order name: Urine Dipstick-Ancillary; Complete Time: 18:15 EDMS 04/27 18:15 Interpretation: UGLUC 3+; UKET Trace; UPROT 1+. cp 04/27 18:16 Order name: ABG; Complete Time: 19:04 04/27 18:55 Order name: SARS-COV-2 RT PCR (Document "Date of Onset" if Symptomatic) 04/27 19:30 Order name: CT Head Angio; Complete Time: 20:19 cp 04/27 19:30 Order name: CT Neck Angio; Complete Time: 20:19 04/27 20:20 Interpretation: Report reviewed. 04/27 21:02 Order name: Glucose, Ancillary Testing; Complete Time: 21:53 EDDC 04/27 22:09 Order name: Glucose, Ancillary Testing EDDC 04/27 17:27 Order name: EKG; Complete Time: 17:28 04/27 17:27 Order name: Cardiac monitoring; Complete Time: 18:44 04/27 17:27 Order name: EKG - Nurse/Tech 04/27 17:27 Order name: IV Saline Lock; Complete Time: 18:44 04/27 17:27 Order name: Labs collected and sent; Complete Time: 23:10 04/27 17:27 Order name: O2 Per Protocol; Complete Time: 18:44 04/27 17:27 Order name: O2 Sat Monitoring; Complete Time: 18:44 04/27 17:35 Order name: Pamler; Complete Time: 18:02 04/27 17:35 Order name: Urine Dipstick-Ancillary (obtain specimen); Complete Time: 23:10 04/27 17:35 Order name: Urine Test (obtain specimen) 04/27 20:32 Order name: Accucheck Blood Glucose; Complete Time: 23:10 cp EC:02 Rate is 123 beats/min. Rhythm is regular. OR interval is normal. QRS interval is cp normal. Interpreted by me. Reviewed by me. Administered Medications: 17:27 Drug: Lidocaine 100 mg Route: IVP; Site: right antecubital; ss 17:28 Drug: Etomidate 20 mg Route: IVP; Site: right antecubital; ss 17:28 Drug: Versed (midazolam) 2 mg Route: IVP; Site: right antecubital; ss 17:29 Drug: Succinylcholine 70 mg Route: IVP; Site: right antecubital; ss 17:45 Drug: NS 0.9% 1000 ml Route: IV; Rate: 1000 ml; Site: right antecubital; ss 18:15 Drug: Keppra (levETIRAcetam) 1000 mg Route: IV; Rate: calculated rate; Site: right ss antecubital; 20:39 Drug: Ancef (cefazolin) 1 grams Route: IVPB; Site: right antecubital; tk1 Disposition: 20:00 Chart complete. cp Disposition Summary: 04/27/21 18:40 Transfer Ordered Transfer Location: [facility] cp Reason: Higher level of care cp Condition: Stable cp Problem: new cp Symptoms: have improved cp Accepting Physician: DR Tran(04/27/21 23:15) tk1 Diagnosis - Altered mental status, unspecified cp Forms: - Medication Reconciliation Form cp - SBAR form cp Critical care time excluding procedures: 20:00 Critical care time: Bedside Care: 10 minutes, Consultation: 25 minutes, Family cp Intervention: 10 minutes. Total time: 45 minutes Addendum: 04/29/2021 07:11 Co-signature as Attending Physician, Maximiliano Cohen MD I agree with the assessment and c randolph plan of care. Signatures: Dispatcher [employer] EDMaximiliano Solis MD MD cha Smirch, Shelby, RN RN ss Yaniv Stern, LIGHT CLEANER-C LIGHT CLEANER-Cla1 Maximiliano Paz PA PA cp Kirby, Tammie tk1 Corrections: (The following items were deleted from the chart) 04/27 17:38 17:26 Head Brain Wo Cont+CT.RAD.BRZ ordered. EDDC EDMS 22:24 18:40 Doctor cp cp 23:15 22:24 DR Tran cp tk1 04/28 02:39 04/27 20:21 Physician consultation: was contacted at 19:30, regarding regarding cp transfer, to [facility]. consult, patient's condition, spoke with DR Tran, neurologist, cp
--- NOTE | 2021-04-27 18:41 | ER ---
Nurse's Notes [facility] Name: Michael Horne Age: 45 yrs Sex: Female : 1975 Arrival Date: 04/27/2021 Time: 17:20 Bed 15 Private MD: Diagnosis: Altered mental status, unspecified Presentation: 04/27 17:20 Chief complaint: EMS states: "unresponsive patient. BGL 22. D10 given IV and increased ss blood glucose to 220, but patient is still unresponsive." Mother reports that patient went to sleep at 1030 this morning and that is the last time she was seen normal. Initial Sepsis Screen:. Onset of symptoms is unknown. 17:20 Method Of Arrival: EMS: [facility] ss 17:20 Acuity: MAEGAN 1 ss Triage Assessment: 17:20 General: Appears pt arrived via EMS unresponsive. VSS, P.I.V in left AC placed by EMS ss with Normal saline bolus. EMS reports parents found pt unresponsive was concerned she was hypoglycemic, glucose now is 115 after they admin D10, pts glucose was originally 22 per EMS. Historical: - PMHx: 18:01 Anxiety; Depression; Diabetes - IDDM; Hypertension; nerve pain; ss - Immunization history:: Adult Immunizations unknown. - Social history:: Smoking status: unknown. Assessment: 17:47 Reassessment: Pt to CT at this time VIA stretcher with ED staff and respiratory ss personnel. General: VIA ambu bag. Neuro: Level of Consciousness is Intubated, sedated. Respiratory: Airway via oral intubation Trachea midline Respiratory effort is even, Respiratory pattern is symmetrical. 18:00 Reassessment: Back from CT. ss 19:30 Reassessment: Patient to CT with RT, nurse, and pet care technician with monitor in place. General: tk1 Appears well developed, well nourished, Behavior is unresponsive. Pain: Unable to use pain scale. Patient is unresponsive. Neuro: Pupils are Pupil Size: 3mm Patient postures to painful stimuli. Cardiovascular: Heart tones S1 S2 Capillary refill < 3 seconds Clubbing of nail beds is absent JVD is absent Patient's skin is warm and dry. Pulses are all present. Edema is absent. Rhythm is sinus tachycardia. Respiratory: Ventilator assessment: ET Tube: Breath sounds are clear bilaterally. GI: No deficits noted. GI: Abdomen is flat, non-distended, Bowel sounds present X 4 quads. : Palmer in place. EENT: No deficits noted. Derm: No deficits noted. Musculoskeletal:. 19:50 Reassessment: Patient to CT with RT, Nurse, and pet care technician. Monitor in place. tk1 20:10 Reassessment: Returned from CT. tk1 21:30 Reassessment: No changes from previously documented assessment. IV Propofol effective tk1 for sedation at 7mls/hour. Family at bedside. 23:14 Reassessment: Report given to Ziggy Flight Nurse. Patient loaded onto stretcher for tk1 transfer. Vital Signs: 17:31 BP 103 / 62; Pulse 128; ss 18:40 BP 112 / 83; Pulse 125; Resp 20; Pulse Ox 100% on ETT vent; ss 19:50 BP 102 / 76 LA Supine (auto/reg); Pulse 119 MON; Resp 20 S; Pulse Ox 100% on ETT vent; tk1 20:00 BP 109 / 72 LA Supine (/reg); Pulse 149 MON; Resp 28 A; Pulse Ox 100% on ETT vent; tk1 20:21 BP 92 / 70 LA Supine (/reg); Pulse 116 LA; Resp 20 A; Pulse Ox 100% on ETT vent; tk1 20:45 BP 112 / 83; Pulse 113; Resp 20 A; Pulse Ox 100% on ETT vent; Weight 68.04 kg (R); mw2 21:00 BP 102 / 78 LA Supine (auto/reg); Pulse 114 MON; Resp 20 A; Pulse Ox 100% on ETT vent; tk1 22:00 BP 115 / 89 LA Supine (auto/reg); Pulse 118 LA; Resp 20 A; Pulse Ox 100% on ETT vent; tk1 ED Course: 17:20 Patient arrived in ED. eb 17:31 Arm band placed on right wrist. ss 17:33 Maximiliano Paz PA is PHCP. cp 17:33 Maximiliano Cohen MD is Attending Physician. cp 17:55 CT Traumagram (Head C Spine CAP W Con) In Process Unspecified. EDMS 18:08 Jerilyn Roach, GRAHAM is Primary Nurse. ss 18:21 Assisted provider with intubation using 7.5 mm ETT via oral route. ET tube secured at ss 23cm at the lips. Intubated by Maximiliano Cohen MD Placement verified by CO2 detector w/ + color change, auscultating bilateral breath sounds, Patient tolerated sedated. 18:24 XRAY Chest (1 view) In Process Unspecified. EDMS 18:30 Triage completed. ss 18:52 initiated a transfer with Karly from the [facility] Transfer Center. eb 19:08 Report given to Ulises Klein cb5 19:20 Primary Nurse role handed off by Jerilyn Roach RN mw2 19:22 connected Maximiliano ARGUELLO with from [facility]. mw2 20:02 CT Head Angio In Process Unspecified. EDMS 20:02 CT Neck Angio In Process Unspecified. EDMS 20:36 Latoya Gamble is Primary Nurse. tk1 20:43 initiated a transfer with Ariane from [facility] Transfer Center. mw2 20:48 [facility] denied due to capacity. mw2 20:50 initiated a transfer with Colleen from [facility]. mw2 21:13 COVID swab sent to lab. mw2 21:20 [facility] denied due to capacity. mw2 21:22 initiated a transfer with Pat from [facility] Transfer [place]. mw2 21:27 all [facility] campuses are at capacity. mw2 21:46 [facility] called to get a covid result for the patient. I will call them back when I [facility] get a result. 21:52 initiated a transfer with Jacob from [facility] Transfer [place]. [facility] denied due to [facility] capacity. 22:17 administrative approval given by Karly Ibrahim/ patient has been accepted to [address] bed 7404/ Dr. Tran accepted the patient in transfer/ report to be called to [phone]. 22:28 [facility] ETA 10 minutes. mw2 Administered Medications: 17:27 Drug: Lidocaine 100 mg Route: IVP; Site: right antecubital; ss 17:28 Drug: Etomidate 20 mg Route: IVP; Site: right antecubital; ss 17:28 Drug: Versed (midazolam) 2 mg Route: IVP; Site: right antecubital; ss 17:29 Drug: Succinylcholine 70 mg Route: IVP; Site: right antecubital; ss 17:45 Drug: NS 0.9% 1000 ml Route: IV; Rate: 1000 ml; Site: right antecubital; ss 18:15 Drug: Keppra (levETIRAcetam) 1000 mg Route: IV; Rate: calculated rate; Site: right ss antecubital; 20:39 Drug: Ancef (cefazolin) 1 grams Route: IVPB; Site: right antecubital; tk1 Outcome: 18:40 ER care complete, transfer ordered by MD. cp 22:31 Transferred by helicopter to [facility], Transfer form completed. tk1 Note: Report called to GRAHAM Cosme 23:13 Transferred by helicopter to [facility]. tk1 23:13 critical 23:15 Patient left the ED. tk1 Signatures: Dispatcher [employer] EDMS Jerilyn Roach RN RN ss Maximiliano Paz PA PA cp [place], MyKena mw2 Sonia Ny Tammie tk1 Jackeline Rey RN RN cb5 Corrections: (The following items were deleted from the chart) 18:25 17:38 Versed (midazolam) 2 mg IVP in right antecubital ss ss 18:25 17:38 Etomidate 20 mg IVP in right antecubital ss ss 18:25 17:37 Lidocaine 100 mg IVP in right antecubital ss ss 18:26 17:39 Succinylcholine 70 mg IVP in right antecubital ss ss 18:37 18:21 Assisted provider with intubation using 7.5 mm ETT via oral route. ET tube ss secured at 23cm at the teeth. Intubated by Maximiliano Cohen MD Placement verified by CO2 detector w/ + color change, auscultating bilateral breath sounds, Patient tolerated sedated ss 18:38 17:20 Chief complaint: EMS states: "unresponsive patient. BGL 22. D10 given IV and ss increased blood glucose to 220, but patient is still unresponsive." ss 20:53 20:52 BP 112 / 83; Pulse 113bpm; Resp 20bpm; Assisted; Pulse Ox 100% ET / Ventilator; mw2 mw2
--- NOTE | 2021-04-27 18:50 | RAD REPORT ---
EXAM DESCRIPTION: RAD - Chest Single View - 04/27/2021 6:23 pm CLINICAL HISTORY: SOB COMPARISON: Chest Single View dated 11/26/2020; Chest Single View dated 10/14/2020; Chest Single View dated 08/21/2018 FINDINGS: Lines: Endotracheal tube terminates less than a cm above the aortic arch in satisfactory p osition. Enteric tube below the diaphragm. Lungs: No evidence of edema or pneumonia. Pleural: No significant pleural effusions or pneumothorax. Cardiac: The heart size is within normal limits. Bones: No acute fractures. Other: IMPRESSION: No acute cardiopulmonary disease. Support apparatus in satisfactory position.
[2021-04-27 18:59] LABS: Arterial Blood Carboxyhemoglob 0.8 % (0-1.5); Blood Gas Oxyhemoglobin 96.4 % (94-97)
[2021-04-27] MEDS ORDERED: propofoL 1,000 MG/100 ML VIAL IV ONE (19:46)
--- NOTE | 2021-04-27 20:13 | RAD REPORT ---
EXAM DESCRIPTION: CT - Neck Angio - 04/27/2021 8:02 pm CLINICAL HISTORY: unresponsive COMPARISON: CT HEAD CSPINE MPR WO CONTRAST dated 12/14/2014; Chest Single View dated 04/27/2021 TECHNIQUE: CT angiography of the neck vessels was performed with MIPs. All CT scans are performed using dose optimization technique as appropriate and may include automated exposure control or mA/KV adjustment according to patient size. FINDINGS: A left aortic arch is identified with normal three vessel configuration of the great vesse ls. No significant flow abnormality is seen of the common carotid bilaterally. No significant stenosis is identified involving the cervical segments of both internal carotid arteri es. Normal flow is seen within both vertebral arteries. Endotracheal tube and enteric tube noted. Single small nodular focus in the right upper lobe of doubtful clinical significance. IMPRESSION: No significant flow abnormality of the neck vessels is identified.
--- NOTE | 2021-04-27 20:15 | RAD REPORT ---
EXAM DESCRIPTION: CT - Head angio - 04/27/2021 8:02 pm CLINICAL HISTORY: unresponsive COMPARISON: Head Brain Wo Cont dated 10/14/2020; Head Brain Wo Cont dated 08/21/2018 TECHNIQUE: CT angiography of the head was performed with MIPs. All CT scans are performed using dose optimization technique as appropriate and may include automated exposure control or mA/KV adjustment according to patient size. FINDINGS: Anterior circulation: No aneurysm or large vessel occlusion. No hemodynamically significant stenosis. No arteriovenous malf ormation identified. Posterior circulation: No aneurysm or large vessel occlusion. No hemodynamically significant stenosis. No arteriovenous malf ormation identified. IMPRESSION: No significant flow abnormality is detected.
[2021-04-27 23:41] VITALS: BP 112/83; O2SAT 100
== END 2021-04-27 23:15 | disposition short-term general hospital (02) ==
LOC: ER 17:16
DX: R41.82 Altered mental status, unspecified (principal); Z20.822 Contact with and (suspected) exposure to COVID-19; I10 Essential (primary) hypertension
CPT/HCPCS: 87040 ×2; 85025; 80048; 36415; 83735; 80329 ×2; 85610; 82947 ×3; 80076; 83605; 81003; 84484; 84145; 83880; 80307; 70450; 72125; 71260; 70496; 70498; 74177; 71045; 94002; 82805; 31500; 96375; 96374; 99291; U0003; Q9967 ×2; J2310; J0330; J2704; J2250 ×2; J1953; J0690; J7030; 93005

== ENCOUNTER 2021-06-16 15:36 | Emergency (ER) | payer BC ==
--- OUTSIDE RECORDS SUMMARY | 2021-06-16 15:56 | XMS REPORT | Continuity of Care Document ---
:1975 Author Organization [facility] t Address [address] [place] [address] Care Team Providers Name Role Phone Tanja CORONEL Primary Care Physician Unavailable Monae Attending Clinician Unavailable Tanja CORONEL Attending Clinician Unavailable Josafat KELLOGG Attending Clinician Unavailable MIRIAM TRUONG Attending Clinician Unavail able Tanja Coronel MD Attending Clinician Yessenia FUENTES Attending Clinician Rodrigo FUENTES, H Attending Clinician Only, Db Test Attending Clinician Unavailable Dwight HARRISP Attending Clinician GREEN Attending Clinician Unavailable YESSENIA Attending Clinician Unavailable Umang DRAKE, L Attending Clinician HARPREET Attending Clinician Unavailable 2, Lab Attending Clinician Unavailable Doctor Unassigned, Name Attending Clinician Unavailable HAMLET Attending Clinician Unavailable MIRIAM TRUONG Admitting Clinician Unavail able OMRANIAN Admitting Clinician Unavailable Payers Payer Name Policy Type Policy Number Effective Date Expiration Date S bebe [facility] OS [id number] 2018 00:00:00 POS/PPO/EPO Problems Condition Condition Condition Status Onset Resolution Last Treating Co mments Source Name Details Category Date Date Treatment Clinician Date Hypokalemi Hypokalemi Disease Active U nivers a a 6-22 ity of 00:00: [place] 00 [facility] Branch Gallstones Gallstones Disease Active U nivers 6-22 ity of 00:00: [place] [facility] Cholecysti Cholecysti Disease Active U nivers tis tis 6-22 ity of without without 00:00: [place] cholelithi cholelithi 00 Me dical asis asis Branch Asymptomat Asymptomat Disease Active U nivers ic ic 6-08 ity of hypertensi hypertensi [place] ve [place] ve urgency 00 Me dical Branch Severe Severe Disease Active [facility] depression depression 6-08 it y of 00:00: [place] [facility] Generalize Generalize Disease Active U nivers d anxiety d anxiety 6-08 ity of disorder disorder 00:00: [place] [facility] Diabetic Diabetic Disease Active Unive rs polyneurop polyneurop 6-08 it y of athy athy 00:00: [place] associated associated 00 Me dical with type with type Bran ch 1 diabetes 1 diabetes mellitus mellitus History of History of Disease Active U nivers suicidal suicidal 6-08 ity of ideation ideation 00:00: [place] [facility] Dyslipidem Dyslipidem Disease Active U nivers ia ia 6-08 ity of 00:00: [place] [facility] Diabetic Diabetic Disease Active Unive rs polyneurop polyneurop 6-08 it y of athy athy 00:00: [place] associated associated 00 Me dical with type with type Bran ch 1 diabetes 1 diabetes mellitus mellitus Acute Acute Disease Active Univers renal renal 7-03 ity of failure failure 00:00: [place] [facility] Sinus Sinus Disease Active [facility] tachycardi tachycardi 5-17 Valerie kes - a a 00:00: Medical 00 Center Sepsis Sepsis Disease [facility] DKA DKA Disease Active [facility] (diabetic (diabetic -17 [facility] - ketoacidos ketoacidos 00:00: Me dical es) es) 00 Center Altered Altered Disease Active [facility] mental mental -17 [facility] state state 00:00: Medical 00 Center Cigarette Cigarette Disease Active [facility] nicotine nicotine 17 [facility] dependence dependence 00:00: Me dical with with 00 Center nicotine-i nicotine-i nduced nduced disorder disorder Acute Acute Disease Active [facility] metabolic metabolic -17 [facility] - encephalop encephalop 00:00: Me dical athy athy 00 Center Wheezing Wheezing Disease [facility]: [facility] 00 [place] Diabetes Diabetes Disease Active Unive rs type 1, type 1, 5-01 ity of uncontroll uncontroll 00:00[place] 00 [facility] Obesity Obesity Disease Active Univers (BMI (BMI 8-12 ity of 30-39.9) 30-39.9) 00:00: [place] [facility] Diabetes Diabetes Disease Active Unive rs 8-12 ity of 00:00: [place] [facility] Intractabl Intractabl Disease Active U nivers e vomiting e vomiting 8-12 it y of with with 00:00: [place] nausea nausea 00 Medical Branch Fibromyalg Fibromyalg Disease Active U nivers ia ia 1-25 ity of 00:00: [place] 00 Medical [facility] Positive Positive Disease Active [...] Active Univers 1-25 ity of 00:00: [place] [facility] Vitamin D Vitamin D Disease Active Uni vers deficiency deficiency 6- it y of 00:00: [place] 00 Medical Branch Uncontroll Uncontroll Disease Active U nivers ed type 1 ed type 1 6 ity of diabetes diabetes 00:00: [place] with with 00 Medical neuropathy neuropathy Br anch ALTAMIRANO ALTAMIRANO Disease Active Univers (nonalcoho (nonalcoho 09-13 it y of lic lic 00:00: [place] steatohepa steatohepa 00 Me dical titis) titis) Branch Normocytic Normocytic Disease Active U nivers anemia anemia 09-13 ity of 00:00: [place] 00 Medical Branch Neuropathy Neuropathy Disease Active U nivers 6 ity of 00:00: [place] 00 Medical [facility] Elevated Elevated Disease Active Unive rs alkaline alkaline 09-13 ity of phosphatas phosphatas 00:[place] e level e level 00 Medical Branch DKA DKA Disease Active [facility] (diabetic (diabetic 26 ity of ketoacidos ketoacidos 00:00: [place] es[place] 00 Medical Branch Tobacco Tobacco Disease Active [facility] use use -23 ity of disorder disorder 00:00: [place] 00 Medical Branch Pap smear Pap smear Disease Active Overview: Univers for for 4-23 Formattin ity of cervical cervical 00:00: g of this Alirio as cancer cancer 00 note Medical screening screening might be Br anch different from the original. 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 Mirena IUD inserted 05/2008. Allergies, Adverse Reactions, Alerts Allergy Allergy Status Severity Reaction(s) Onset Inactive Treating Comm ents Source Name Type Date Date Clinician NO KNOWN Drug Active Univers ALLERGIE Class ity of S [facility] NO KNOWN Allergy Active [facility] ALLERGIE S Social History Social Habit Start Date Stop Date Quantity Comments Source History [facility] o f Alcohol Frequency [facility] edical Branch History [facility] o f Alcohol Std Drinks [facility] History [facility] o f Alcohol Binge [facility] History of tobacco Cigarette Smoker University of use [facility] Exposure to Not sure University of SARS-CoV-2 (event) [facility] Alcohol intake 2020-09-28 2020-09-28 0 /d University of 00:00:00 00:00:00 [facility] Alcohol Comment 2015-01-24 2015-01-24 1-2 glassed of Unive rsity of 00:00:00 00:00:00 red wine daily [facility] Cigarettes smoked 2012-07-28 2012-07-28 Univers ity of current (pack per 00:00:00 00:00:00 [facility]) - Reported Branch Cigarette 2012-07-28 2012-07-28 University of pack-years 00:00:00 00:00:00 [facility] Tobacco use and 2012-07-28 2012-07-28 Never used Universit y of exposure 00:00:00 00:00:00 [facility] Tobacco Comment 2012-07-28 2012-07-28 1/2 pkg per day Univ ersity of 00:00:00 00:00:00 [facility] Sex [birth year] Universit y of 00:00:00 00:00:00 [facility] Smoking Status Start Date Stop Date Source Current every day smoker 2012-07-28 00:00:00 Uni versity of [facility] Medications Ordered Filled Start Stop Current Ordering Indication Dosage Frequency Signature Comments Components Source Medication Medication Date Date Medication? Clinician (SIG) Name Name METFORMIN 2020-04 Yes [id number] TAKE TWO Univers 500 mg 2-28 (2) ity of tablet 00:00: TABLET(S) [place] 00 BY MOUTH Medical TWICE A Branch DAY WITH MEALS. PREGABALIN Yes [id number] TAKE ONE Univers 150 mg 9-20 (1) ity of capsule 00:00: [place] 00 BY MOUTH Medical TWICE A Branch DAY FOR 1 WEEK. IF PAIN NOT BETTER, THEN TAKE 2 CAPSULES BY MOUTH TWICE DAILY. PREGABALIN Yes [id number] TAKE ONE Univers 150 mg 9-20 (1) ity of capsule 00:00: [place] BY MOUTH Medical TWICE A Branch DAY FOR 1 WEEK. IF PAIN NOT BETTER, THEN TAKE 2 CAPSULES BY MOUTH TWICE DAILY. PREGABALIN Yes [id number] TAKE ONE Univers 150 mg 9-20 (1) ity of capsule 00:00: [place] 00 BY MOUTH Medical TWICE A Branch DAY FOR 1 WEEK. IF PAIN NOT BETTER, THEN TAKE 2 CAPSULES BY MOUTH TWICE DAILY. PREGABALIN 0 Yes [id number] TAKE ONE Univers 150 mg 9-20 (1) ity of capsule 00:00: [place] 00 BY MOUTH Medical TWICE A Branch DAY FOR 1 WEEK. IF PAIN NOT BETTER, THEN TAKE 2 CAPSULES BY MOUTH TWICE DAILY. OXCARBAZEPI 2021-0 Yes [id number] TAKE ONE Univers NE 300 mg 9-08 (1) ity of tablet 00:00: TABLET(S) 00 BY MOUTH Medical TWICE A Branch DAY. OXCARBAZEPI 2020-0 Yes [id number] TAKE ONE Univers [place] 300 mg 9-08 (1) ity of tablet 00:00: TABLET(S) [place] 00 BY MOUTH Medical TWICE A Branch DAY. OXCARBAZEPI 202-0 Yes [id number] TAKE ONE Univers NE 300 mg 9-08 (1) ity of tablet 00:00: TABLET(S) [place] 00 BY MOUTH Medical TWICE A Branch DAY. OXCARBAZEPI 2020-0 Yes [id number] TAKE ONE Univers NE 300 mg 9-08 (1) ity of tablet 00:00: TABLET(S) 00 BY MOUTH Medical TWICE A Branch DAY. OXCARBAZEPI 2020-0 Yes [id number] TAKE ONE Univers NE 300 mg 9-08 (1) ity of tablet 00:00: TABLET(S) 00 BY MOUTH Medical TWICE A Branch DAY. OXCARBAZEPI 2020-0 Yes [id number] TAKE ONE Univers NE 300 mg 9-08 (1) ity of tablet 00:00: TABLET(S) 00 BY MOUTH Medical TWICE A Branch DAY. metFORMIN 2020-0 Yes [id number] 1000mg Take 2 Univers 500 mg 8-02 tablets by ity of tablet 00:00: mouth (two) Medical times Branch daily with meals. metFORMIN 2020-0 Yes [id number] 1000mg Take 2 Univers 500 mg 8-02 tablets by ity of tablet 00:00: mouth (two) Medical times Branch daily with meals. metFORMIN 2020-0 Yes [id number] 1000mg Take 2 Univers 500 mg 8-02 tablets by ity of tablet 00:00: mouth (two) Medical times Branch daily with meals. metFORMIN 202-0 Yes [id number] 1000mg Take 2 Univers 500 mg 8-02 tablets by ity of tablet 00:00: mouth (two) Medical times Branch daily with meals. metFORMIN 2021-0 Yes [id number] 1000mg Take 2 Univers 500 mg 8-02 tablets by ity of tablet 00:00: mouth (two) Medical times Branch daily with meals. metFORMIN 2021-0 Yes [id number] 1000mg Take 2 Univers 500 mg 8-02 tablets by ity of tablet 00:00: mouth 2 00 (two) Medical times Branch daily with meals. metFORMIN 2020-0 Yes [id number] 1000mg Take 2 Univers 500 mg 8-02 tablets by ity of tablet 00:00: mouth 2 (two) Medical times Branch daily with meals. metFORMIN 2020-0 Yes [id number] 1000mg Take 2 Univers 500 mg 8-02 tablets by ity of tablet 00:00: mouth 2 (two) Medical times Branch daily with meals. metFORMIN 2020-0 Yes [id number] 1000mg Take 2 Univers 500 mg 8-02 tablets by ity of tablet 00:00: mouth (two) Medical times Branch daily with meals. metFORMIN 2020-0 2020- No [id number] 1000mg Take 2 Univers 500 mg 8-02 12-28 tablets by ity of tablet 00:00: 00:00 mouth 2 [place] 00 :00 (two) Medical times Branch daily with meals. PAROXETINE 2020-2020- No 40mg Take 40 mg Univers HCL ORAL 7-12 07-12 by mouth ity of 22:20: 00:00 daily. [place] 27 :00 Medical Branch busPIRone 2020-0 Yes [id number] 15mg Take 1 Un jimmy 15 mg 7-12 tablet by ity of tablet 00:00: mouth 3 00 (three) Medical times Branch daily. buPROPion 2020-0 Yes [id number] 300mg Take 1 U nivers XL 300 mg 7-12 tablet by ity o f 24 hr 00:00: mouth [place] tablet 00 daily. Medical Branch ARIPiprazol 2020-0 Yes [id number] 10mg Take 1 Univers e 10 mg 7-12 tablet by ity of tablet 00:00: mouth [place] 00 daily. Medical Branch PARoxetine 2020-0 Yes [id number] 40mg Take 1 U nivers mesylate 40 7-12 tablet by ity of mg tablet 00:00: mouth [place] 00 every Medical morning. Branch cyclobenzap 2020-0 Yes [id number] 10mg Take 1 Univers rine 10 mg 7-12 tablet by ity of tablet 00:00: mouth 2 00 (two) Medical times Branch daily. naproxen 2020-0 Yes [id number] 500mg Take 1 U nivers 500 mg 7-12 tablet by ity of tablet 00:00: mouth 2 00 (two) Medical times Branch daily with meals. lisinopriL 2020-0 Yes [id number] 20mg Take 1 Un jimmy 20 mg 7-12 tablet by ity of tablet 00:00: mouth [place] 00 daily. Medical Branch busPIRone 2020-0 Yes [id number] 15mg Take 1 Un jimmy 15 mg 7-12 tablet by ity of tablet 00:00: mouth 3 [place] 00 (three) Medical times Branch daily. buPROPion 2020-0 Yes [id number] 300mg Take 1 U nivers XL 300 mg 7-12 tablet by ity o f 24 hr 00:00: mouth [place] tablet 00 daily. Medical Branch ARIPiprazol 2020-0 Yes [id number] 10mg Take 1 Univers e 10 mg 7-12 tablet by ity of tablet 00:00: mouth [place] 00 daily. Medical Branch PARoxetine 2020-0 Yes [id number] 40mg Take 1 U nivers mesylate 40 7-12 tablet by ity of mg tablet 00:00: mouth [place] 00 every Medical morning. Branch cyclobenzap 2020-0 Yes [id number] 10mg Take 1 Univers rine 10 mg 7-12 tablet by ity of tablet 00:00: mouth 2 00 (two) Medical times Branch daily. naproxen 2020-0 Yes [id number] 500mg Take 1 U nivers 500 mg 7-12 tablet by ity of tablet 00:00: mouth 2 00 (two) Medical times Branch daily with meals. lisinopriL 2020-0 Yes [id number] 20mg Take 1 Un jimmy 20 mg 7-12 tablet by ity of tablet 00:00: mouth [place] 00 daily. Medical Branch busPIRone 2020-0 Yes [id number] 15mg Take 1 Un jimmy 15 mg 7-12 tablet by ity of tablet 00:00: mouth 3 00 (three) Medical times Branch daily. buPROPion 2020-0 Yes [id number] 300mg Take 1 U nivers XL 300 mg 7-12 tablet by ity o f 24 hr 00:00: mouth [place] tablet 00 daily. Medical Branch ARIPiprazol 2020-0 Yes [id number] 10mg Take 1 Univers e 10 mg 7-12 tablet by ity of tablet 00:00: mouth [place] 00 daily. Medical Branch PARoxetine Yes [id number] 40mg Take 1 U nivers mesylate 40 7-12 tablet by ity of mg tablet 00:00: mouth [place] 00 every Medical morning. Branch cyclobenzap Yes [id number] 10mg Take 1 Univers rine 10 mg 7-12 tablet by ity of tablet 00:00: mouth 2 [place] 00 (two) Medical times Branch daily. naproxen 2020-0 Yes [id number] 500mg Take 1 U nivers 500 mg 7-12 tablet by ity of tablet 00:00: mouth 2 [place] 00 (two) Medical times Branch daily with meals. lisinopriL Yes [id number] 20mg Take 1 Un jimmy 20 mg 7-12 tablet by ity of tablet 00:00: mouth [place] 00 daily. Medical Branch busPIRone Yes [id number] 15mg Take 1 Un jimmy 15 mg 7-12 tablet by ity of tablet 00:00: mouth 3 00 (three) Medical times Branch daily. buPROPion 0 Yes [id number] 300mg Take 1 U nivers XL 300 mg 7-12 tablet by ity o f 24 hr 00:00: mouth [place] tablet 00 daily. Medical Branch ARIPiprazol Yes [id number] 10mg Take 1 Univers e 10 mg 7-12 tablet by ity of tablet 00:00: mouth [place] 00 daily. Medical Branch PARoxetine Yes [id number] 40mg Take 1 U nivers mesylate 40 7-12 tablet by ity of mg tablet 00:00: mouth [place] 00 every Medical morning. Branch cyclobenzap 0 Yes [id number] 10mg Take 1 Univers rine 10 mg 7-12 tablet by ity of tablet 00:00: mouth 2 [place] 00 (two) Medical times Branch daily. naproxen 2020-0 Yes [id number] 500mg Take 1 U nivers 500 mg 7-12 tablet by ity of tablet 00:00: mouth 2 [place] 00 (two) Medical times Branch daily with meals. lisinopriL 2020-0 Yes [id number] 20mg Take 1 Un jimmy 20 mg 7-12 tablet by ity of tablet 00:00: mouth [place] 00 daily. Medical Branch busPIRone 0 Yes [id number] 15mg Take 1 Un jimmy 15 mg 7-12 tablet by ity of tablet 00:00: mouth 3 [place] 00 (three) Medical times Branch daily. buPROPion 2020-0 Yes [id number] 300mg Take 1 U nivers XL 300 mg 7-12 tablet by ity o f 24 hr 00:00: mouth [place] tablet 00 daily. Medical Branch ARIPiprazol 2020-0 Yes [id number] 10mg Take 1 Univers e 10 mg 7-12 tablet by ity of tablet 00:00: mouth [place] 00 daily. Medical Branch PARoxetine 2020-0 Yes [id number] 40mg Take 1 U nivers mesylate 40 7-12 tablet by ity of mg tablet 00:00: mouth [place] 00 every Medical morning. Branch cyclobenzap 2020-0 Yes [id number] 10mg Take 1 Univers rine 10 mg 7-12 tablet by ity of tablet 00:00: mouth 2 00 (two) Medical times Branch daily. naproxen 2020-0 Yes [id number] 500mg Take 1 U nivers 500 mg 7-12 tablet by ity of tablet 00:00: mouth 2 00 (two) Medical times Branch daily with meals. lisinopriL 0 Yes [id number] 20mg Take 1 Un jimmy 20 mg 7-12 tablet by ity of tablet 00:00: mouth [place] 00 daily. Medical Branch busPIRone 0 Yes [id number] 15mg Take 1 Un jimmy 15 mg 7-12 tablet by ity of tablet 00:00: mouth 3 00 (three) Medical times Branch daily. buPROPion 2020-0 Yes [id number] 300mg Take 1 U nivers XL 300 mg 7-12 tablet by ity o f 24 hr 00:00: mouth [place] tablet 00 daily. Medical Branch ARIPiprazol 2020-0 Yes [id number] 10mg Take 1 Univers e 10 mg 7-12 tablet by ity of tablet 00:00: mouth [place] 00 daily. Medical Branch PARoxetine 2020-0 Yes [id number] 40mg Take 1 U nivers mesylate 40 7-12 tablet by ity of mg tablet 00:00: mouth [place] 00 every Medical morning. Branch cyclobenzap 2020-0 Yes [id number] 10mg Take 1 Univers rine 10 mg 7-12 tablet by ity of tablet 00:00: mouth 2 [place] 00 (two) Medical times Branch daily. naproxen 2020-0 Yes [id number] 500mg Take 1 U nivers 500 mg 7-12 tablet by ity of tablet 00:00: mouth 2 (two) Medical times Branch daily with meals. lisinopriL 2020-0 Yes [id number] 20mg Take 1 Un jimmy 20 mg 7-12 tablet by ity of tablet 00:00: mouth [place] 00 daily. Medical Branch busPIRone 2020-0 Yes [id number] 15mg Take 1 Un jimmy 15 mg 7-12 tablet by ity of tablet 00:00: mouth 3 (three) Medical times Branch daily. buPROPion 2020-0 Yes [id number] 300mg Take 1 U nivers XL 300 mg 7-12 tablet by ity o f 24 hr 00:00: mouth [place] tablet 00 daily. Medical Branch ARIPiprazol 2020-0 Yes [id number] 10mg Take 1 Univers e 10 mg 7-12 tablet by ity of tablet 00:00: mouth [place] 00 daily. Medical Branch PARoxetine 2020-0 Yes [id number] 40mg Take 1 U nivers mesylate 40 7-12 tablet by ity of mg tablet 00:00: mouth [place] 00 every Medical morning. Branch cyclobenzap 2020-0 Yes [id number] 10mg Take 1 Univers rine 10 mg 7-12 tablet by ity of tablet 00:00: mouth 2 (two) Medical times Branch daily. naproxen 2020-0 Yes [id number] 500mg Take 1 U nivers 500 mg 7-12 tablet by ity of tablet 00:00: mouth (two) Medical times Branch daily with meals. lisinopriL 2020-0 Yes [id number] 20mg Take 1 Un jimmy 20 mg 7-12 tablet by ity of tablet 00:00: mouth [place] 00 daily. Medical Branch busPIRone 2020-0 Yes [id number] 15mg Take 1 Un jimmy 15 mg 7-12 tablet by ity of tablet 00:00: mouth 3 00 (three) Medical times Branch daily. buPROPion 2020-0 Yes [id number] 300mg Take 1 U nivers XL 300 mg 7-12 tablet by ity o f 24 hr 00:00: mouth [place] tablet 00 daily. Medical Branch ARIPiprazol 2020-0 Yes [id number] 10mg Take 1 Univers e 10 mg 7-12 tablet by ity of tablet 00:00: mouth [place] 00 daily. Medical Branch PARoxetine 2020-0 Yes [id number] 40mg Take 1 U nivers mesylate 40 7-12 tablet by ity of mg tablet 00:00: mouth [place] 00 every Medical morning. Branch cyclobenzap 2020-0 Yes [id number] 10mg Take 1 Univers rine 10 mg 7-12 tablet by ity of tablet 00:00: mouth 2 [place] 00 (two) Medical times Branch daily. naproxen 2020-0 Yes [id number] 500mg Take 1 U nivers 500 mg 7-12 tablet by ity of tablet 00:00: mouth 2 00 (two) Medical times Branch daily with meals. lisinopriL 0 Yes [id number] 20mg Take 1 Un jimmy 20 mg 7-12 tablet by ity of tablet 00:00: mouth [place] 00 daily. Medical Branch busPIRone 2020-0 Yes [id number] 15mg Take 1 Un jimmy 15 mg 7-12 tablet by ity of tablet 00:00: mouth 3 00 (three) Medical times Branch daily. buPROPion 2020-0 Yes [id number] 300mg Take 1 U nivers XL 300 mg 7-12 tablet by ity o f 24 hr 00:00: mouth [place] tablet 00 daily. Medical Branch ARIPiprazol 0 Yes [id number] 10mg Take 1 Univers e 10 mg 7-12 tablet by ity of tablet 00:00: mouth [place] 00 daily. Medical Branch PARoxetine 2020-0 Yes [id number] 40mg Take 1 U nivers mesylate 40 7-12 tablet by ity of mg tablet 00:00: mouth [place] 00 every Medical morning. Branch cyclobenzap 2020-0 Yes [id number] 10mg Take 1 Univers rine 10 mg 7-12 tablet by ity of tablet 00:00: mouth 2 [place] 00 (two) Medical times Branch daily. naproxen 2020-0 Yes [id number] 500mg Take 1 U nivers 500 mg 7-12 tablet by ity of tablet 00:00: mouth 2 [place] 00 (two) Medical times Branch daily with meals. lisinopriL 2020-0 Yes [id number] 20mg Take 1 Un jimmy 20 mg 7-12 tablet by ity of tablet 00:00: mouth [place] 00 daily. Medical Branch busPIRone 2020-0 Yes [id number] 15mg Take 1 Un [place]im[facility] 15 mg 7-12 tablet by ity of tablet 00:00: mouth 3 00 (three) Medical times Branch daily. buPROPion 2020-0 Yes [id number] 300mg Take 1 U nivers XL 300 mg 7-12 tablet by ity o f 24 hr 00:00: mouth [place] tablet 00 daily. Medical Branch ARIPiprazol 2020-0 Yes [id number] 10mg Take 1 Univers e 10 mg 7-12 tablet by ity of tablet 00:00: mouth [place] 00 daily. Medical Branch PARoxetine 2020-0 Yes [id number] 40mg Take 1 U nivers mesylate 40 7-12 tablet by ity of mg tablet 00:00: mouth [place] 00 every Medical morning. Branch cyclobenzap 0 Yes [id number] 10mg Take 1 Univers rine 10 mg 7-12 tablet by ity of tablet 00:00: mouth 2 (two) Medical times Branch daily. naproxen 2020-0 Yes [id number] 500mg Take 1 U nivers 500 mg 7-12 tablet by ity of tablet 00:00: mouth 2 (two) Medical times Branch daily with meals. lisinopriL 2020-0 Yes [id number] 20mg Take 1 Un jimmy 20 mg 7-12 tablet by ity of tablet 00:00: mouth [place] 00 daily. Medical Branch busPIRone 2020-0 Yes [id number] 15mg Take 1 Un [place]im[facility] 15 mg 7-12 tablet by ity of tablet 00:00: mouth 3 (three) Medical times Branch daily. buPROPion 2020-0 Yes [id number] 300mg Take 1 U nivers XL 300 mg 7-12 tablet by ity o f 24 hr 00:00: mouth [place] tablet 00 daily. Medical Branch ARIPiprazol 2020-0 Yes [id number] 10mg Take 1 Univers e 10 mg 7-12 tablet by ity of tablet 00:00: mouth [place] 00 daily. Medical Branch PARoxetine 2020-0 Yes [id number] 40mg Take 1 U nivers mesylate 40 7-12 tablet by ity of mg tablet 00:00: mouth [place] 00 every Medical morning. Branch cyclobenzap 2020-0 Yes [id number] 10mg Take 1 Univers rine 10 mg 7-12 tablet by ity of tablet 00:00: mouth 2 00 (two) Medical times Branch daily. naproxen 2020-0 Yes [id number] 500mg Take 1 U nivers 500 mg 7-12 tablet by ity of tablet 00:00: mouth 2 00 (two) Medical times Branch daily with meals. lisinopriL 2020-0 Yes [id number] 20mg Take 1 Un jimmy 20 mg 7-12 tablet by ity of tablet 00:00: mouth [place] 00 daily. Medical Branch busPIRone 0 Yes [id number] 15mg Take 1 Un [facility]im[facility] 15 mg 7-12 tablet by ity of tablet 00:00: mouth 3 00 (three) Medical times Branch daily. buPROPion 2020-0 Yes [id number] 300mg Take 1 U nivers XL 300 mg 7-12 tablet by ity o f 24 hr 00:00: mouth [place] tablet 00 daily. Medical Branch ARIPiprazol 0 Yes [id number] 10mg Take 1 Univers e 10 mg 7-12 tablet by ity of tablet 00:00: mouth [place] 00 daily. Medical Branch PARoxetine Yes [id number] 40mg Take 1 U nivers mesylate 40 7-12 tablet by ity of mg tablet 00:00: mouth [place] 00 every Medical morning. Branch cyclobenzap 0 Yes [id number] 10mg Take 1 Univers rine 10 mg 7-12 tablet by ity of tablet 00:00: mouth 2 00 (two) Medical times Branch daily. naproxen 2020-0 Yes [id number] 500mg Take 1 U nivers 500 mg 7-12 tablet by ity of tablet 00:00: mouth 2 [place] 00 (two) Medical times Branch daily with meals. lisinopriL 2020-0 Yes [id number] 20mg Take 1 Un jimmy 20 mg 7-12 tablet by ity of tablet 00:00: mouth [place] 00 daily. Medical Branch busPIRone 2020-0 Yes [id number] 15mg Take 1 Un jimmy 15 mg 7-12 tablet by ity of tablet 00:00: mouth 3 [place] 00 (three) Medical times Branch daily. buPROPion 2020-0 Yes [id number] 300mg Take 1 U nivers XL 300 mg 7-12 tablet by ity o f 24 hr 00:00: mouth [place] tablet 00 daily. Medical Branch ARIPiprazol Yes [id number] 10mg Take 1 [facility] e 10 mg 7-12 tablet by ity of tablet 00:00: mouth [place] 00 daily. Medical Branch PARoxetine Yes [id number] 40mg Take 1 U nivers mesylate 40 7-12 tablet by ity of mg tablet 00:00: mouth [place] 00 every Medical morning. Branch cyclobenzap Yes [id number] 10mg Take 1 [facility] rine 10 mg 7-12 tablet by ity of tablet 00:00: mouth 2 00 (two) Medical times Branch daily. naproxen Yes [id number] 500mg Take 1 [facility] nivers 500 mg 7-12 tablet by ity of tablet 00:00: mouth 2 [place] 00 (two) Medical times Branch daily with meals. lisinopriL Yes [id number] 20mg Take 1 [facility] jimmy 20 mg 7-12 tablet by ity of tablet 00:00: mouth [place] 00 daily. Medical Branch Insulin Yes [id number] Use as [facility] [place], 6 directed ity of Disposable, 00:00: [place] (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 Medical PEN NEEDLE) Branch 31 gauge x 1/4" Ndle lancets Yes [id number] Use as Univ ers (INCONTROL 10-02 directed ity o f SUPER THIN 00:00: [place] LANCETS) 30 00 Medical gauge [facility] Lancing Yes [id number] Use as [facility] Device 6 directed ity of (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: [place] LANCING 00 [employer]) Branch [facility] [place] Yes [id number] Use as [facility] [place], 6-28 directed ity of Disposable, 00:00: [place] (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 Medical PEN NEEDLE) Branch 31 gauge x 1/4" Ndle lancets Yes [id number] Use as Univ ers (INCONTROL 28 directed ity o f SUPER THIN 00:00: [place] LANCETS) 30 00 Medical gauge [facility] Lancing Yes [id number] Use as [facility] Device 628 directed ity of (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: [place] LANCING 00 [employer]) Branch [facility] [place] 2021-0 Yes [id number] Use as [facility] [place], 6- directed ity of Disposable, 00:00: [place] (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 Medical PEN NEEDLE) Branch 31 gauge x 1/4" Ndle lancets 0 Yes [id number] Use as Univ ers (INCONTROL 10-02 directed ity o f SUPER THIN 00:00: [place] LANCETS) 30 00 Medical gauge Misc Branch Lancing 0 Yes [id number] Use as Univ ers Device 10-02 directed ity of (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: [place] LANCING 00 [employer]) Branch Misc Insulin 0 Yes [id number] Use as [facility] [place], 6 directed ity of Disposable, 00:00: [place] (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 Medical PEN NEEDLE) Branch 31 gauge x 1/4" Ndle lancets Yes [id number] Use as Univ ers (INCONTROL 10-02 directed ity o f SUPER THIN 00:00: [place] LANCETS) 30 00 Medical gauge Misc Branch Lancing 0 Yes [id number] Use as Univ ers Device 10-02 directed ity of (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: [place] LANCING 00 [employer]) Branch Misc Insulin 0 Yes [id number] Use as [facility] [place], 10-02 directed ity of Disposable, 00:00: [place] (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 Medical PEN NEEDLE) Branch 31 gauge x 1/4" Ndle lancets 0 Yes [id number] Use as Univ ers (INCONTROL 10-02 directed ity o f SUPER THIN 00:00: [place] LANCETS) 30 00 Medical gauge Misc Branch Lancing 0 Yes [id number] Use as Univ ers Device 10-02 directed ity of (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: [place] LANCING 00 [employer]) Branch Misc Insulin 0 Yes [id number] Use as [facility] [place], 6 directed ity of Disposable, 00:00: [place] (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 Medical PEN NEEDLE) Branch 31 gauge x 1/4" Ndle lancets 0 Yes [id number] Use as Univ ers (INCONTROL 10-02 directed ity o f SUPER THIN 00:00: [place] LANCETS) 30 00 Medical gauge Misc Branch Lancing 0 Yes [id number] Use as Univ ers Device 10-02 directed ity of (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: [place] LANCING 00 [employer]) Branch Misc Insulin 0 Yes [id number] Use as [facility] [place], 6 directed ity of Disposable, 00:00: [place] (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 Medical PEN NEEDLE) Branch 31 gauge x 1/4" Ndle lancets 0 Yes [id number] Use as Univ ers (INCONTROL 10-02 directed ity o f SUPER THIN 00:00: [place] LANCETS) 30 00 Medical gauge Misc Branch Lancing 0 Yes [id number] Use as Univ ers Device 10-02 directed ity of (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: [place] LANCING 00 [employer]) Branch Misc Insulin 0 Yes [id number] Use as [facility] [place], 10-02 directed ity of Disposable, 00:00: [place] (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 Medical PEN NEEDLE) Branch 31 gauge x 1/4" Ndle lancets 0 Yes [id number] Use as Univ ers (INCONTROL 10-02 directed ity o f SUPER THIN 00:00: [place] LANCETS) 30 00 Medical gauge Misc Branch Lancing 0 Yes [id number] Use as Univ ers Device 10-02 directed ity of (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: [place] LANCING 00 [employer]) Branch Misc Insulin 0 Yes [id number] Use as [facility] [place], 10-02 directed ity of Disposable, 00:00: [place] (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 Medical PEN NEEDLE) Branch 31 gauge x 1/4" Ndle lancets 0 Yes [id number] Use as Univ ers (INCONTROL 10-02 directed ity o f SUPER THIN 00:00: [place] LANCETS) 30 00 Medical gauge Misc Branch Lancing 2020-0 Yes [id number] Use as Univ ers Device 10-02 directed ity of (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: [place] LANCING 00 [employer]) Branch Misc Insulin 0 Yes [id number] Use as [facility] [place], 6 directed ity of Disposable, 00:00: [place] (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 Medical PEN NEEDLE) Branch 31 gauge x 1/4" Ndle lancets 0 Yes [id number] Use as Univ ers (INCONTROL 10-02 directed ity o f SUPER THIN 00:00: [place] LANCETS) 30 00 Medical gauge Misc Branch Lancing 2020-0 Yes [id number] Use as Univ ers Device 6-28 directed ity of (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: [place] LANCING 00 [employer]) Branch Misc Insulin 0 Yes [id number] Use as [facility] [place], 6- directed ity of Disposable, 00:00: [place] (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 Medical PEN NEEDLE) Branch 31 gauge x 1/4" Ndle lancets 0 Yes [id number] Use as Univ ers (INCONTROL - directed ity o f SUPER THIN 00:00: [place] LANCETS) 30 00 Medical gauge Misc Branch Lancing 0 Yes [id number] Use as Univ ers Device 6- directed ity of (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: [place] LANCING 00 [employer]) Branch Misc Insulin 0 Yes [id number] Use as [facility] [place], - directed ity of Disposable, 00:00: [place] (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 Medical PEN NEEDLE) Branch 31 gauge x 1/4" Ndle lancets 0 Yes [id number] Use as Univ ers (INCONTROL 10-02 directed ity o f SUPER THIN 00:00: [place] LANCETS) 30 00 Medical gauge Misc Branch Lancing 0 Yes [id number] Use as Univ ers Device - directed ity of (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: [place] LANCING 00 [employer]) Branch Misc Insulin 0 Yes [id number] Use as [facility] [place], 6- directed ity of Disposable, 00:00: [place] (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 Medical PEN NEEDLE) Branch 31 gauge x 1/4" Ndle lancets 0 Yes [id number] Use as Univ ers (INCONTROL 10-02 directed ity o f SUPER THIN 00:00: [place] LANCETS) 30 00 Medical gauge Misc Branch Lancing 0 Yes [id number] Use as Univ ers Device 6-28 directed ity of (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: [place] LANCING 00 [employer]) Branch Misc Insulin 0 Yes [id number] Use as [facility] [place], 6-28 directed ity of Disposable, 00:00: [place] (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 Medical PEN NEEDLE) Branch 31 gauge x 1/4" Ndle lancets 0 Yes [id number] Use as Univ ers (INCONTROL 6-28 directed ity o f SUPER THIN 00:00: [place] LANCETS) 30 00 Medical gauge Misc Branch Lancing 0 Yes [id number] Use as Univ ers Device 6-28 directed ity of (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: [place] LANCING 00 [employer]) Branch Misc Insulin 0 Yes [id number] Use as [facility] [place], 6-28 directed ity of Disposable, 00:00: [place] (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 Medical PEN NEEDLE) Branch 31 gauge x 1/4" Ndle lancets 0 Yes [id number] Use as Univ ers (INCONTROL 6-28 directed ity o f SUPER THIN 00:00: [place] LANCETS) 30 00 Medical gauge Misc Branch Lancing 0 Yes [id number] Use as Univ ers Device 6-28 directed ity of (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: [place] LANCING 00 [employer]) Branch Misc Insulin 0 Yes [id number] Use as [facility] [place], 6-28 directed ity of Disposable, 00:00: [place] (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 Medical PEN NEEDLE) Branch 31 gauge x 1/4" Ndle lancets 0 Yes [id number] Use as Univ ers (INCONTROL 6-28 directed ity o f SUPER THIN 00:00: [place] LANCETS) 30 00 Medical gauge Misc Branch Lancing 0 Yes [id number] Use as Univ ers Device 6-28 directed ity of (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: [place] LANCING 00 [employer]) Branch Misc blood sugar Yes Use as Univ ers diagnostic 6-25 directed, ity of (TRUE 00:00: once a day [place] METRIX 00 to monitor Medical GLUCOSE blood Branch TEST STRIP) glucose strip for ICD code E11.9 blood sugar Yes Use as Univ ers diagnostic 6-25 directed, ity of (TRUE 00:00: once a day [place] METRIX 00 to monitor Medical GLUCOSE blood Branch TEST STRIP) glucose strip for ICD code E11.9 blood sugar Yes Use as Univ ers diagnostic 6-25 directed, ity of (TRUE 00:00: once a day [place] METRIX 00 to monitor Medical GLUCOSE blood Branch TEST STRIP) glucose strip for ICD code E11.9 blood sugar Yes Use as Univ ers [...] strip for ICD code E11.9 blood sugar 2021-0 Yes Use as Univ ers diagnostic 6-25 directed, ity of (TRUE 00:00: once a day [place] METRI[employer] 00 to monitor Medical GLUCOSE blood Branch TEST STRIP) glucose strip for ICD code E11.9 blood sugar Yes Use as Univ ers diagnostic 6-25 directed, ity of (TRUE 00:00: once a day [place] METRIX 00 to monitor Medical GLUCOSE blood Branch TEST STRIP) glucose strip for ICD code E11.9 potassium Yes [id number] 10meq Take 1 U nivers chloride 10 6-23 tablet by ity of mEq CR 00:00: mouth [place] tablet 00 every Medical Friday, Branch and Friday in the evening. potassium Yes [id number] 10meq Take 1 U nivers chloride 10 6-23 tablet by ity of mEq CR 00:00: mouth [place] tablet 00 every Medical Friday, Branch and Friday in the evening. potassium Yes [id number] 10meq Take 1 U nivers chloride 10 6-23 tablet by ity of mEq CR 00:00: mouth [place] tablet 00 every Medical Friday, Branch and Friday in the evening. potassium Yes [id number] 10meq Take 1 U nivers chloride 10 6-23 tablet by ity of mEq CR 00:00: mouth [place] tablet 00 every Medical Friday, Branch and Friday in the evening. potassium Yes [id number] 10meq Take 1 U nivers chloride 10 6-23 tablet by ity of mEq CR 00:00: mouth [place] tablet 00 every Medical Friday, Branch and Friday in the evening. potassium Yes [id number] 10meq Take 1 U nivers chloride 10 6-23 tablet by ity of mEq CR 00:00: mouth [place] tablet 00 every Medical Friday, Branch and Friday in the evening. potassium 0 Yes [id number] 10meq Take 1 U nivers chloride 10 6-23 tablet by ity of mEq CR 00:00: mouth [place] tablet 00 every Medical Friday, Branch and Friday in the evening. potassium 0 Yes [id number] 10meq Take 1 U nivers chloride 10 6-23 tablet by ity of mEq CR 00:00: mouth [place] tablet 00 every Medical Friday, Branch and Friday in the evening. potassium Yes [id number] 10meq Take 1 U nivers chloride 10 6-23 tablet by ity of mEq CR 00:00: mouth [place] tablet 00 every Medical Friday, Branch and Friday in the evening. potassium Yes [id number] 10meq Take 1 U nivers chloride 10 6-23 tablet by ity of mEq CR 00:00: mouth [place] tablet 00 every Medical Friday, Branch and Friday in the evening. potassium Yes [id number] 10meq Take 1 U nivers chloride 10 6-23 tablet by ity of mEq CR 00:00: mouth [place] tablet 00 every Medical Friday, Branch and Friday in the evening. potassium Yes [id number] 10meq Take 1 U nivers chloride 10 6-23 tablet by ity of mEq CR 00:00: mouth [place] tablet 00 every Medical Friday, Branch and Friday in the evening. potassium 0 Yes [id number] 10meq Take 1 U nivers chloride 10 6-23 tablet by ity of mEq CR 00:00: mouth [place] tablet 00 every Medical Friday, and Friday in the evening. potassium Yes [id number] 10meq Take 1 U nivers chloride 10 6-23 tablet by ity of mEq CR 00:00: mouth [place] tablet 00 every Medical Friday, Branch and Friday in the evening. potassium 0 Yes [id number] 10meq Take 1 U nivers chloride 10 6-23 tablet by ity of mEq CR 00:00: mouth [place] tablet 00 every Medical Friday, Branch and Friday in the evening. potassium 0 Yes [id number] 10meq Take 1 U nivers chloride 10 6-23 tablet by ity of mEq CR 00:00: mouth [place] tablet 00 every Medical Friday, Branch and Friday in the evening. potassium 0 Yes [id number] 10meq Take 1 U nivers chloride 10 6-23 tablet by ity of mEq CR 00:00: mouth [place] tablet 00 every Medical Friday, Branch and Friday in the evening. Insulin Yes [id number] Use as [facility] vers [place], 6-22 directed ity of Disposable, 00:00: [place] (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 Medical PEN NEEDLE) Branch 31 gauge x 1/4" Ndle B Complex Yes [id number] 1{tbl} Take 1 [facility] Vitamins 6-22 tablet by ity of (B-COMPLEX) 00:00: mouth [place] tablet 00 daily. Medical Branch Insulin Yes [id number] Use as [facility] vers [place], 6-22 directed ity of Disposable, 00:00: [place] (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 Medical PEN NEEDLE) Branch 31 gauge x 1/4" Ndle B Complex Yes [id number] 1{tbl} Take 1 [facility] Vitamins 6-22 tablet by ity of (B-COMPLEX) 00:00: mouth [place] tablet 00 daily. Medical Branch Insulin Yes [id number] Use as [facility] [place], 6-22 directed ity of Disposable, 00:00: [place] (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 Medical PEN NEEDLE) Branch 31 gauge x 1/4" Ndle pregabalin Yes [id number] 150mg Take 1 [facility] 150 mg 6-22 capsule by ity of capsule 00:00: mouth 3 00 (three) Medical times Branch daily. 1 pill bid for a week. If pain not better than 2 pills bid. B Complex Yes [id number] 1{tbl} Take 1 [facility] Vitamins 6-22 tablet by ity of (B-COMPLEX) 00:00: mouth [place] tablet 00 daily. Medical Branch Insulin Yes [id number] Use as [facility] [place], 6-22 directed ity of Disposable, 00:00: [place] (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 Medical PEN NEEDLE) Branch 31 gauge x 1/4" Ndle pregabalin Yes [id number] 150mg Take 1 [facility] 150 mg 6-22 capsule by ity of capsule 00:00: mouth 3 [place] 00 (three) Medical times Branch daily. 1 pill bid for a week. If pain not better than 2 pills bid. B Complex Yes [id number] 1{tbl} Take 1 [facility] Vitamins 6-22 tablet by ity of (B-COMPLEX) 00:00: mouth [place] tablet 00 daily. Medical Branch Insulin Yes [id number] Use as [facility] [place], 6-22 directed ity of Disposable, 00:00: [place] (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 Medical PEN NEEDLE) Branch 31 gauge x 1/4" Ndle pregabalin Yes [id number] 150mg Take 1 [facility] 150 mg 6-22 capsule by ity of capsule 00:00: mouth 3 (three) Medical times Branch daily. 1 pill bid for a week. If pain not better than 2 pills bid. B Complex Yes [id number] 1{tbl} Take 1 [facility] Vitamins 6-22 tablet by ity of (B-COMPLEX) 00:00: mouth [place] tablet 00 daily. Medical Branch Insulin Yes [id number] Use as [facility] [place], 622 directed ity of Disposable, 00:00: [place] (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 Medical PEN NEEDLE) Branch 31 gauge x 1/4" Ndle B Complex Yes [id number] 1{tbl} Take 1 [facility] Vitamins 6-22 tablet by ity of (B-COMPLEX) 00:00: mouth [place] tablet 00 daily. Medical Branch Insulin Yes [id number] Use as [facility] [place], 6 directed ity of Disposable, 00:00: [place] (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 Medical PEN NEEDLE) Branch 31 gauge x 1/4" Ndle pregabalin Yes [id number] 150mg Take 1 [facility] 150 mg 6-22 capsule by ity of capsule 00:00: mouth 3 00 (three) Medical times Branch daily. 1 pill bid for a week. If pain not better than 2 pills bid. busPIRone 5 Yes [id number] 5mg Take 1 [facility] mg tablet 6-22 tablet by ity o f 00:00: mouth 2 00 (two) Medical times Branch daily as needed (Anxiety/D epression) . cyclobenzap Yes [id number] 5mg Take 1 [facility] rine 5 mg 6-22 tablet by ity o f tablet 00:00: mouth 3 00 (three) Medical times Branch daily. B Complex Yes [id number] 1{tbl} Take 1 [facility] Vitamins 6-22 tablet by ity of (B-COMPLEX) 00:00: mouth [place] tablet 00 daily. Medical Branch Insulin Yes [id number] Use as [facility] ers [place], 6-22 directed ity of Disposable, 00:00: [place] (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 Medical PEN NEEDLE) Branch 31 gauge x 1/4" Ndle pregabalin Yes [id number] 150mg Take 1 [facility] 150 mg 6-22 capsule by ity of capsule 00:00: mouth 3 [place] 00 (three) Medical times Branch daily. 1 pill bid for a week. If pain not better than 2 pills bid. busPIRone 5 Yes [id number] 5mg Take 1 [facility] mg tablet 6-22 tablet by ity o f 00:00: mouth 2 [place] 00 (two) Medical times Branch daily as needed (Anxiety/D epression) . cyclobenzap Yes [id number] 5mg Take 1 [facility] rine 5 mg 6-22 tablet by ity o f tablet 00:00: mouth 3 [place] 00 (three) Medical times Branch daily. B Complex Yes [id number] 1{tbl} Take 1 [facility] Vitamins 6-22 tablet by ity of (B-COMPLEX) 00:00: mouth [place] tablet 00 daily. Medical Branch Insulin Yes [id number] Use as [facility] [place], 6-22 directed ity of Disposable, 00:00: [place] (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 Medical PEN NEEDLE) Branch 31 gauge x 1/4" Ndle pregabalin Yes [id number] 150mg Take 1 [facility] 150 mg 6-22 capsule by ity of capsule 00:00: mouth 3 00 (three) Medical times Branch daily. 1 pill bid for a week. If pain not better than 2 pills bid. busPIRone 5 Yes [id number] 5mg Take 1 [facility] mg tablet 6-22 tablet by ity o f 00:00: mouth 2 [place] 00 (two) Medical times Branch daily as needed (Anxiety/D epression) . cyclobenzap Yes [id number] 5mg Take 1 [facility] rine 5 mg 6-22 tablet by ity o f tablet 00:00: mouth 3 [place] 00 (three) Medical times Branch daily. B Complex 2020- Yes [id number] 1{tbl} Take 1 [facility] Vitamins 6-22 tablet by ity of (B-COMPLEX) 00:00: mouth [place] tablet 00 daily. Medical Branch Insulin 2020-0 Yes [id number] Use as [facility] ers [place], 6-22 directed ity of Disposable, 00:00: [place] (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 Medical PEN NEEDLE) Branch 31 gauge x 1/4" Ndle pregabalin Yes [id number] 150mg Take 1 [facility] 150 mg 6-22 capsule by ity of capsule 00:00: mouth 3 (three) Medical times Branch daily. 1 pill bid for a week. If pain not better than 2 pills bid. busPIRone 5 Yes [id number] 5mg Take 1 [facility] mg tablet 6-22 tablet by ity o f 00:00: mouth 2 (two) Medical times Branch daily as needed (Anxiety/D epression) . cyclobenzap Yes [id number] 5mg Take 1 [facility] rine 5 mg 6-22 tablet by ity o f tablet 00:00: mouth 3 00 (three) Medical times Branch daily. B Complex Yes [id number] 1{tbl} Take 1 [facility] Vitamins 6-22 tablet by ity of (B-COMPLEX) 00:00: mouth [place] tablet 00 daily. Medical Branch Insulin Yes [id number] Use as [facility] ers [place], 6-22 directed ity of Disposable, 00:00: [place] (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 Medical PEN NEEDLE) Branch 31 gauge x 1/4" Ndle pregabalin Yes [id number] 150mg Take 1 [facility] 150 mg 6-22 capsule by ity of capsule 00:00: mouth 3 (three) Medical times Branch daily. 1 pill bid for a week. If pain not better than 2 pills bid. B Complex Yes [id number] 1{tbl} Take 1 [facility] Vitamins 6-22 tablet by ity of (B-COMPLEX) 00:00: mouth [place] tablet 00 daily. Medical Branch Insulin Yes [id number] Use as [facility] ers [place], 6-22 directed ity of Disposable, 00:00: [place] (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 Medical PEN NEEDLE) Branch 31 gauge x 1/4" Ndle pregabalin Yes [id number] 150mg Take 1 [facility] 150 mg 6-22 capsule by ity of capsule 00:00: mouth 3 (three) Medical times Branch daily. 1 pill bid for a week. If pain not better than 2 pills bid. B Complex Yes [id number] 1{tbl} Take 1 [facility] Vitamins 6-22 tablet by ity of (B-COMPLEX) 00:00: mouth [place] tablet 00 daily. Medical Branch Insulin Yes [id number] Use as [facility] ers [place], 6-22 directed ity of Disposable, 00:00: [place] (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 Medical PEN NEEDLE) Branch 31 gauge x 1/4" Ndle pregabalin Yes [id number] 150mg Take 1 [facility] 150 mg 6-22 capsule by ity of capsule 00:00: mouth 3 [place] 00 (three) Medical times Branch daily. 1 pill bid for a week. If pain not better than 2 pills bid. B Complex Yes [id number] 1{tbl} Take 1 [facility] Vitamins 6-22 tablet by ity of (B-COMPLEX) 00:00: mouth [place] tablet 00 daily. Medical Branch Insulin Yes [id number] Use as [facility] ers [place], 6-22 directed ity of Disposable, 00:00: [place] (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 Medical PEN NEEDLE) Branch 31 gauge x 1/4" Ndle pregabalin Yes [id number] 150mg Take 1 [facility] 150 mg 6-22 capsule by ity of capsule 00:00: mouth 3 (three) Medical times Branch daily. 1 pill bid for a week. If pain not better than 2 pills bid. B Complex Yes [id number] 1{tbl} Take 1 [facility] Vitamins 6-22 tablet by ity of (B-COMPLEX) 00:00: mouth [place] tablet 00 daily. Medical Branch Insulin Yes [id number] Use as [facility] [place], 6-22 directed ity of Disposable, 00:00: [place] (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 Medical PEN NEEDLE) Branch 31 gauge x 1/4" Ndle pregabalin Yes [id number] 150mg Take 1 [facility] 150 mg 6-22 capsule by ity of capsule 00:00: mouth 3 [place] 00 (three) Medical times Branch daily. 1 pill bid for a week. If pain not better than 2 pills bid. B Complex Yes [id number] 1{tbl} Take 1 [facility] Vitamins 6-22 tablet by ity of (B-COMPLEX) 00:00: mouth [place] tablet 00 daily. Medical Branch Insulin Yes [id number] Use as [facility] ers [place], 6-22 directed ity of Disposable, 00:00: [place] (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 Medical PEN NEEDLE) Branch 31 gauge x 1/4" Ndle pregabalin Yes [id number] 150mg Take 1 [facility] 150 mg 6-22 capsule by ity of capsule 00:00: mouth 3 [place] 00 (three) Medical times Branch daily. 1 pill bid for a week. If pain not better than 2 pills bid. B Complex Yes [id number] 1{tbl} Take 1 [facility] Vitamins 6-22 tablet by ity of (B-COMPLEX) 00:00: mouth [place] tablet 00 daily. Medical Branch Insulin Yes [id number] Use as [facility] ers [place], 6-22 directed ity of Disposable, 00:00: [place] (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 Medical PEN NEEDLE) Branch 31 gauge x 1/4" Ndle B Complex Yes [id number] 1{tbl} Take 1 [facility] Vitamins 6-22 tablet by ity of (B-COMPLEX) 00:00: mouth [place] tablet 00 daily. Medical Branch pregabalin 2020- No [id number] 150mg Take 1 [facility] 150 mg 6-22 09-20 capsule by ity of capsule 00:00: 00:00 mouth 3 [place] 00 :00 (three) Medical times Branch daily. 1 pill bid for a week. If pain not better than 2 pills bid. pregabalin 2020- No [id number] 150mg Take 1 [facility] 150 mg 6-22 09-20 capsule by ity of capsule 00:00: 00:00 mouth 3 [place] 00 :00 (three) Medical times Branch daily. 1 pill bid for a week. If pain not better than 2 pills bid. busPIRone 5 2020- No [id number] 5mg Take 1 [facility] mg tablet 6-22 -12 tablet by ity of 00:00: 00:00 mouth 2 [place] 00 :00 (two) Medical times Branch daily as needed (Anxiety/D epression) . cyclobenzap 2020- No [id number] 5mg Take 1 [facility] rine 5 mg 6-22 07-12 tablet by ity of tablet 00:00: 00:00 mouth 3 [place] 00 :00 (three) Medical times Branch daily. lisinopril- 202- No 1{tbl} Take 1 U nivers hydrochloro 6-14 06-10 tablet by it y of thiazide 04:36: 00:00 mouth [place] 20-12.5 mg 41 :00 daily. Medical per tablet Branch blood sugar Yes [id number] Use TID, [facility] diagnostic 6-13 DX E11.9 ity o f (FREESTYLE 00:00: (Brand [place] LITE 00 upon Medical STRIPS) insurance Branch strip approval) Insulin Yes [id number] Use TID, Un jimmy [place], 6-13 DX E11.9 ity of Disposable, 00:00: [place] ([place]ULIN 00 upon Medical PEN NEEDLE insurance Bran [facility]) 31 approval) gauge x 5/16" Ndle lisinopriL- Yes [id number] 1{tbl} Take 1 [facility] hydrochloro 6-13 tablet by ity of thiazide 00:00: mouth [place] 20-12.5 mg 00 daily. Medical per tablet Branch blood sugar Yes [id number] Use TID, [facility] diagnostic 6-13 DX E11.9 ity o f (FREESTYLE 00:00: (Brand [place] LITE 00 upon Medical STRIPS) insurance Branch strip approval) lisinopriL- Yes [id number] 1{tbl} Take 1 [facility] hydrochloro 6-13 tablet by ity of thiazide 00:00: mouth [place] 20-12.5 mg 00 daily. Medical per tablet Branch blood sugar Yes [id number] Use TID, [facility] diagnostic 6-13 DX E11.9 ity o f (FREESTYLE 00:00: (Brand [place] LITE 00 upon Medical STRIPS) insurance Branch strip approval) lisinopriL- Yes [id number] 1{tbl} Take 1 [facility] hydrochloro 6-13 tablet by ity of thiazide 00:00: mouth [place] 20-12.5 mg 00 daily. Medical per tablet Branch blood sugar Yes [id number] Use TID, [facility] diagnostic 6-13 DX E11.9 ity o f (FREESTYLE 00:00: (Brand [place] LITE 00 upon Medical STRIPS) insurance Branch strip approval) lisinopriL- Yes [id number] 1{tbl} Take 1 [facility] hydrochloro 6-13 tablet by ity of thiazide 00:00: mouth [place] 20-12.5 mg 00 daily. Medical per tablet Branch lisinopriL- Yes [id number] 1{tbl} Take 1 [facility] hydrochloro 6-13 tablet by ity of thiazide 00:00: mouth [place] 20-12.5 mg 00 daily. Medical per tablet Branch lisinopriL- Yes [id number] 1{tbl} Take 1 [facility] hydrochloro 6-13 tablet by ity of thiazide 00:00: mouth [place] 20-12.5 mg 00 daily. Medical per tablet Branch lisinopriL- Yes [id number] 1{tbl} Take 1 [facility] hydrochloro 6-13 tablet by ity of thiazide 00:00: mouth [place] 20-12.5 mg 00 daily. Medical per tablet Branch lisinopriL- Yes [id number] 1{tbl} Take 1 [facility] hydrochloro 6-13 tablet by ity of thiazide 00:00: mouth [place] 20-12.5 mg 00 daily. Medical per tablet Branch lisinopriL- 2020- No [id number] 1{tbl} Take 1 [facility] hydrochloro 6-13 07-12 tablet by it y of thiazide 00:00: 00:00 mouth [place] 20-12.5 mg 00 :00 daily. Medical per tablet Branch blood sugar 2020- No [id number] Use TID, [facility] diagnostic 09-17 DX E11.9 ity of (FREESTYLE 00:00: [place] :00 upon Medical STRIPS) insurance Branch strip approval) blood sugar 2020- No [id number] Use TID, [facility] diagnostic 09-17 DX E11.9 ity of (FREESTYLE 00:00: 00:[place] Medical STRIPS) insurance Branch strip approval) blood sugar 2020- No [id number] Use TID, [facility] diagnostic 09-17 DX E11.9 ity of (FREESTYLE 00:00: 00:00 [place] :[place] Medical STRIPS) insurance Branch strip approval) Insulin 2020- No [id number] Use TID, U nivers [place], 09-17- DX E11.9 ity of Disposable, 00:00: 00:00 (Brand [place] as (BD INSULIN 00 :00 upon Medical PEN NEEDLE insurance [facility]) 31 approval) gauge x 5/16" Ndle Insulin 2020- No [id number] Use TID, U nivers [place], 09-17 DX E11.9 ity of Disposable, 00:00: 00:00 (Brand [place] as (BD INSULIN 00 :00 upon Medical PEN NEEDLE insurance [facility]) 31 approval) gauge x 5/16" Ndle Insulin 2020- No [id number] Use TID, U nivers [place], 09-17 DX E11.9 ity of Disposable, 00:00: 00:00 (Brand [place] as (BD INSULIN 00 :00 upon Medical PEN NEEDLE insurance [facility]) 31 approval) gauge x 5/16" Ndle Insulin 2020- No [id number] Use TID, U nivers [place], 09-17 DX E11.9 ity of Disposable, 00:00: 00:00 (Brand [place] as (BD INSULIN 00 :00 upon Medical PEN NEEDLE insurance [facility]) 31 approval) gauge x 5/16" Ndle Insulin 2020- No [id number] Use TID, U nivers [place], 09-17 DX E11.9 ity of Disposable, 00:00: 00:00 (Brand [place] as (BD INSULIN 00 :00 upon Medical PEN NEEDLE insurance [facility]) 31 approval) gauge x 5/16" Ndle Insulin 2020- No [id number] Use TID, U nivers [place], 09-17 DX E11.9 ity of Disposable, 00:00: 00:00 (Brand [place] as (BD INSULIN 00 :00 upon Medical PEN NEEDLE insurance [facility]) 31 approval) gauge x 5/16" Ndle HYDROcodone 2020-2020- No 1{tbl} Take 1 U nivers -acetaminop 09-12 tablet by it y of hen (NOR[place]) 20:01: 00:00 [place] 10-325 mg 50 :00 every 8 Medical tablet (eight) Branch hours. HYDROcodone 2020- No 1{tbl} Take 1 U nivers -acetaminop 09-1208 tablet by it y of hen (NORCO) 20:01: 00:00 [place] 10-325 [place] 50 :00 every 8 Medical tablet (eight) Branch hours. cloNIDine 2020- No [id number] .2mg Un jimmy (CATAPRES) 09-12- ity of tablet 0.2 20:00: 07:59 [place] mg 00 :00 Medical Branch cloNIDine 2020- No [id number] .2mg Un jim[place] (CATAPRES) 09-12 ity of tablet 0.2 20:00: 07:59 [place] mg 00 :00 Medical Branch cloNIDine 2020- No [id number] .2mg Un [place]im[place] (CATAPRES) 09-12 ity of tablet 0.2 20:00: 07:59 [place] mg 00 :00 Medical Branch cloNIDine 2020- No [id number] .2mg Un jimmy (CATAPRES) 09-12-09 ity of tablet 0.2 20:00: 07:59 [place] mg 00 :00 Medical Branch OXcarbazepi 2020- No 300mg Take 300 Univers ne 300 mg 09-12-08 mg by ity of tablet 19:47: 00:00 mouth 2 [place] 46 :00 (two) Medical times Branch daily. ARIPiprazol 2020- No 10mg Take 10 mg Univers e 10 mg 09-12-08 by mouth ity of tablet 19:47: 00:00 daily. [place] 46 :00 Medical Branch OXcarbazepi 2020- No 300mg Take 300 Univers ne 300 mg 09-12-08 mg by ity of tablet 19:47: 00:00 mouth 2 [place] 46 :00 (two) Medical times Branch daily. ARIPiprazol 2020- No 10mg Take 10 mg Univers e 10 mg 09-12-08 by mouth ity of tablet 19:47: 00:00 daily. [place] 46 :00 Medical Branch insulin 2020- No 45U inject 45 Univ ers glargine,hu 6-08 06-08 Units ity of m.rec.anlog 19:28: 00:00 under the [place] ([place]) 22 :00 skin 2 Medica l (two) Branch times daily. insulin 2020- No 45U inject 45 Univ ers glargine,hu 6-08 06-08 Units ity of .rec.anlog 19:28: 00:00 under the [place] ([place]) 22 :00 skin 2 Medica l (two) Branch times daily. lancets Yes [id number] Use 3X Uni vers (FREESTYLE 6-08 daily. Dx ity of LANCETS) 28 00:00: Code E11.9 [place] gauge Misc 00 Medical Branch insulin Yes [id number] 60U inject 60 Univers glargine 6-08 Units ity of U-300 conc 00:00: under the [facility] (TOUJEO MAX 00 skin 2 Medica l U-300 (two) Branch SOLOSTAR) times 300 unit/mL daily (3 mL) InPn before breakfast and dinner. insulin Yes [id number] Blood Univ ers lispro 6-08 glucose < [...] glucose >300 seek medical attention Lancets Yes [id number] Use as Uni vers (ACCU-CHEK 6-08 directed, ity of FASTCLIX 00:00: DX:250.01, [place] as LANCING 00 six times Medical DEV) Misc per day. Branch hydrALAZINE Yes [id number] 10mg Take 1 Univers 10 mg 6-08 tablet by ity of tablet 00:00: mouth 3 [place] 00 (three) Medical times Branch daily as needed (Take 1 Tablet TID PRN if BP >160/90). rosuvastati Yes [id number] 20mg Take 1 Univers n 20 mg 6-08 tablet by ity of tablet 00:00: mouth at [place] [address] bedtime. Medical Branch nicotine 21 Yes [id number] 1{patch Apply 1 Univers mg/24 hr 6-08 } Patch to ity of patch 00:00: area(s) [place] 00 daily. Medical Apply 21mg Branch patch daily x 6 weeks; then apply 14mf patch daily x 2 weeks; then apply 7mg patch daily x 2 weeks. Stop smoking on initiation of therapy nicotine 7 Yes [id number] 1{patch Apply 1 Univers mg/24 hr 6-08 } Patch to ity of patch 00:00: [facility]() [place] [address] every 24 Medical (twenty-fo Branch ur) hours. Apply 21mg patch daily x 6 weeks; then apply 14mf patch daily x 2 weeks; then apply 7mg patch daily x 2 weeks. Stop smoking on initiation of therapy nicotine 14 Yes [id number] 1{patch Apply 1 Univers mg/24 hr 6-08 } Patch to ity of patch 00:00: [facility](s) [place] 00 every 24 Medical (twenty-fo Branch ur) hours. Apply 21mg patch daily x 6 weeks; then apply 14mf patch daily x 2 weeks; then apply 7mg patch daily x 2 weeks. Stop smoking on initiation of therapy lancets Yes [id number] Use 3X Uni vers (FREESTYLE 6-08 daily. Dx ity of LANCETS) 28 00:00: Code E11.9 [place] [facility] Misc 00 Medical Branch insulin Yes [id number] 60U inject 60 [facility] glargine 6-08 Units ity of U-300 conc 00:00: under the [place] ([place] 00 skin 2 Medica l U-300 (two) Branch SOLOSTAR) times 300 unit/mL daily (3 mL) InPn before breakfast and dinner. insulin Yes [id number] Blood Univ ers lispro 6-08 glucose < [...] glucose >300 seek medical attention Lancets Yes [id number] Use as Uni vers (ACCU-CHEK 6-08 directed, ity of FASTCLIX 00:00: DX:250.01, [place] as LANCING 00 six times Medical DEV) Misc per day. Branch hydrALAZINE Yes [id number] 10mg Take 1 Univers 10 mg 6-08 tablet by ity of tablet 00:00: mouth 3 [place] 00 (three) Medical times Branch daily as needed (Take 1 Tablet TID PRN if BP >160/90). rosuvastati Yes [id number] 20mg Take 1 Univers n 20 mg 6-08 tablet by ity of tablet 00:00: mouth at [place] 00 bedtime. Medical Branch nicotine Yes [id number] 1{patch Apply 1 [facility] mg/24 hr 6-08 } Patch to ity of patch 00:00: area(s) [place] 00 daily. Medical Apply 21mg Branch patch daily x 6 weeks; then apply 14mf patch daily x 2 weeks; then apply 7mg patch daily x 2 weeks. Stop smoking on initiation of therapy nicotine 7 Yes [id number] 1{patch Apply 1 Univers mg/24 hr 6-08 } Patch to ity of patch 00:00: area(s) [place] 00 every 24 Medical (twenty-fo Branch ur) hours. Apply 21mg patch daily x 6 weeks; then apply 14mf patch daily x 2 weeks; then apply 7mg patch daily x 2 weeks. Stop smoking on initiation of therapy nicotine 14 Yes [id number] 1{patch Apply 1 [facility] mg/24 hr 6-08 } Patch to ity of patch 00:00: area(s) [place] 00 every 24 Medical (twenty-fo Branch ur) hours. Apply 21mg patch daily x 6 weeks; then apply 14mf patch daily x 2 weeks; then apply 7mg patch daily x 2 weeks. Stop smoking on initiation of therapy OXcarbazepi Yes [id number] 300mg Take 1 Univers ne 300 mg 6-08 tablet by ity o f tablet 00:00: mouth 2 [place] 00 (two) Medical times Branch daily. lancets Yes [id number] Use 3X Uni vers (FREESTYLE 6-08 daily. Dx ity of LANCETS) 28 00:00: Code E11.9 [place] gauge Misc 00 Medical Branch insulin Yes [id number] 60U inject 60 [facility] glargine 6-08 Units ity of U-300 conc 00:00: under the [place] ([place] 00 skin 2 Medica l U-300 (two) Branch SOLOSTAR) times 300 unit/mL daily (3 mL) InPn before breakfast and dinner. insulin Yes [id number] Blood Univ ers lispro 6-08 glucose < [...] glucose >300 seek medical attention Lancets Yes [id number] Use as Uni vers (ACCU-CHEK 6-08 directed, ity of FASTCLIX 00:00: DX:250.01, [place]ING 00 six times Medical DEV) Misc per day. Branch hydrALAZINE Yes [id number] 10mg Take 1 Univers 10 mg 6-08 tablet by ity of tablet 00:00: mouth 3 [place] 00 (three) Medical times Branch daily as needed (Take 1 Tablet TID PRN if BP >160/90). rosuvastati Yes [id number] 20mg Take 1 Univers n 20 mg 6-08 tablet by ity of tablet 00:00: mouth at [place] [address] bedtime. Medical Branch nicotine 21 Yes [id number] 1{patch Apply 1 [facility] mg/24 hr 6-08 } Patch to ity of patch 00:00: area(s) [place] 00 daily. Medical Apply 21mg Branch patch daily x 6 weeks; then apply 14mf patch daily x 2 weeks; then apply 7mg patch daily x 2 weeks. Stop smoking on initiation of therapy nicotine 7 Yes [id number] 1{patch Apply 1 Univers mg/24 hr 6-08 } Patch to ity of patch 00:00: area(s) [place] 00 every 24 Medical (twenty-fo Branch ur) hours. Apply 21mg patch daily x 6 weeks; then apply 14mf patch daily x 2 weeks; then apply 7mg patch daily x 2 weeks. Stop smoking on initiation of therapy nicotine 14 Yes [id number] 1{patch Apply 1 Univers mg/24 hr 6-08 } Patch to ity of patch 00:00: [facility]() [place] 00 every 24 Medical (twenty-fo Branch ur) hours. Apply 21mg patch daily x 6 weeks; then apply 14mf patch daily x 2 weeks; then apply 7mg patch daily x 2 weeks. Stop smoking on initiation of therapy OXcarbazepi Yes [id number] 300mg Take 1 Univers ne 300 mg 6-08 tablet by ity o f tablet 00:00: mouth 2 [place] 00 (two) Medical times Branch daily. lancets Yes [id number] Use 3X Uni vers (FREESTYLE 6-08 daily. Dx ity of LANCETS) 28 00:00: Code E11.9 [facility] Misc 00 Medical Branch insulin Yes [id number] 60U inject 60 Univers glargine 6-08 Units ity of U-300 conc 00:00: under the [place] ([place] 00 skin 2 Medica l U-300 (two) Branch SOLOSTAR) times 300 unit/mL daily (3 mL) InPn before breakfast and dinner. insulin Yes [id number] Blood Univ ers lispro 6-08 glucose < [...] glucose >300 seek medical attention Lancets Yes [id number] Use as Uni vers (ACCU-CHEK 6-08 directed, ity of FASTCLIX 00:00: DX:250.01, [place] 00 six times Medical DEV) Misc per day. Branch hydrALAZINE Yes [id number] 10mg Take 1 Univers 10 mg 6-08 tablet by ity of tablet 00:00: mouth 3 [place] 00 (three) Medical times Branch daily as needed (Take 1 Tablet TID PRN if BP >160/90). rosuvastati Yes [id number] 20mg Take 1 Univers n 20 mg 6-08 tablet by ity of tablet 00:00: mouth at [place] 00 bedtime. Medical Branch nicotine Yes [id number] 1{patch Apply 1 Univers mg/24 hr 6-08 } Patch to ity of patch 00:00: area() [place] 00 daily. Medical Apply 21mg Branch patch daily x 6 weeks; then apply 14mf patch daily x 2 weeks; then apply 7mg patch daily x 2 weeks. Stop smoking on initiation of therapy nicotine Yes [id number] 1{patch Apply 1 Univers mg/24 hr 6-08 } Patch to ity of patch 00:00: area() [place] 00 every 24 Medical (twenty- Branch ur) hours. Apply 21mg patch daily x 6 weeks; then apply 14mf patch daily x 2 weeks; then apply 7mg patch daily x 2 weeks. Stop smoking on initiation of therapy nicotine Yes [id number] 1{patch Apply 1 Univers mg/24 hr 6-08 } Patch to ity of patch 00:00: area() [place] 00 every 24 Medical (twenty- Branch ur) hours. Apply 21mg patch daily x 6 weeks; then apply 14mf patch daily x 2 weeks; then apply 7mg patch daily x 2 weeks. Stop smoking on initiation of therapy lancets Yes [id number] Use 3X Uni vers (FREESTYLE 6-08 daily. Dx ity of LANCETS) 28 00:00: Code E11.9 [place] gauge Misc 00 Medical Branch insulin Yes [id number] 60U inject 60 [facility] glargine 6-08 Units ity of U-300 conc 00:00: under the [place] ([place] 00 skin 2 Medica l U-300 (two) Branch SOLOSTAR) times 300 unit/mL daily (3 mL) InPn before breakfast and dinner. insulin Yes [id number] Blood Univ ers lispro 6-08 glucose < [...] glucose >300 seek medical attention Lancets Yes [id number] Use as Uni vers (ACCU-CHEK 6-08 directed, ity of FASTCLIX 00:00: DX:250.01, [place] as [place] 00 six times Medical DEV) Misc per day. Branch hydrALAZINE Yes [id number] 10mg Take 1 Univers 10 mg 6-08 tablet by ity of tablet 00:00: mouth 3 [place] 00 (three) Medical times Branch daily as needed (Take 1 Tablet TID PRN if BP >160/90). rosuvastati Yes [id number] 20mg Take 1 Univers n 20 mg 6-08 tablet by ity of tablet 00:00: mouth at [place] 00 bedtime. Medical Branch nicotine 21 Yes [id number] 1{patch Apply 1 Univers mg/24 hr 6-08 } Patch to ity of patch 00:00: area(s) [place] 00 daily. Medical Apply 21mg Branch patch daily x 6 weeks; then apply 14mf patch daily x 2 weeks; then apply 7mg patch daily x 2 weeks. Stop smoking on initiation of therapy nicotine 7 Yes [id number] 1{patch Apply 1 Univers mg/24 hr 6-08 } Patch to ity of patch 00:00: area(s) [place] 00 every 24 Medical (twenty-fo Branch ur) hours. Apply 21mg patch daily x 6 weeks; then apply 14mf patch daily x 2 weeks; then apply 7mg patch daily x 2 weeks. Stop smoking on initiation of therapy nicotine 14 Yes [id number] 1{patch Apply 1 Univers mg/24 hr 6-08 } Patch to ity of patch 00:00: area(s) [place] 00 every 24 Medical (twenty-fo Branch ur) hours. Apply 21mg patch daily x 6 weeks; then apply 14mf patch daily x 2 weeks; then apply 7mg patch daily x 2 weeks. Stop smoking on initiation of therapy lancets Yes [id number] Use 3X Uni vers (FREESTYLE 6-08 daily. Dx ity of LANCETS) 28 00:00: Code E11.9 [place] gauge Misc 00 Medical Branch insulin Yes [id number] 60U inject 60 Univers glargine 6-08 Units ity of U-300 conc 00:00: under the [place] ([place] 00 skin 2 Medica l U-300 (two) Branch SOLOSTAR) times 300 unit/mL daily (3 mL) InPn before breakfast and dinner. insulin Yes [id number] Blood Univ ers lispro 6-08 glucose < [...] glucose >300 seek medical attention Lancets Yes [id number] Use as Uni vers (ACCU-CHEK 6-08 directed, ity of FASTCLIX 00:00: DX:250.01, [place] as [place]ING 00 six times Medical DEV) Misc per day. Branch hydrALAZINE Yes [id number] 10mg Take 1 Univers 10 mg 6-08 tablet by ity of tablet 00:00: mouth 3 00 (three) Medical times Branch daily as needed (Take 1 Tablet TID PRN if BP >160/90). rosuvastati Yes [id number] 20mg Take 1 Univers n 20 mg 6-08 tablet by ity of tablet 00:00: mouth at [place] 00 bedtime. Medical Branch nicotine 21 Yes [id number] 1{patch Apply 1 Univers mg/24 hr 6-08 } Patch to ity of patch 00:00: area(s) [place] 00 daily. Medical Apply 21mg Branch patch daily x 6 weeks; then apply 14mf patch daily x 2 weeks; then apply 7mg patch daily x 2 weeks. Stop smoking on initiation of therapy nicotine 7 Yes [id number] 1{patch Apply 1 Univers mg/24 hr 6-08 } Patch to ity of patch 00:00: area(s) [place] 00 every 24 Medical (twenty-fo Branch ur) hours. Apply 21mg patch daily x 6 weeks; then apply 14mf patch daily x 2 weeks; then apply 7mg patch daily x 2 weeks. Stop smoking on initiation of therapy nicotine 14 Yes [id number] 1{patch Apply 1 Univers mg/24 hr 6-08 } Patch to ity of patch 00:00: area(s) [place] 00 every 24 Medical (twenty-fo Branch ur) hours. Apply 21mg patch daily x 6 weeks; then apply 14mf patch daily x 2 weeks; then apply 7mg patch daily x 2 weeks. Stop smoking on initiation of therapy ARIPiprazol Yes [id number] 10mg Take 1 Univers e 10 mg 6-08 tablet by ity of tablet 00:00: mouth [place] 00 daily. Medical Branch OXcarbazepi Yes [id number] 300mg Take 1 Univers ne 300 mg 6-08 tablet by ity o f tablet 00:00: mouth 2 00 (two) Medical times Branch daily. PARoxetine Yes [id number] 40mg Take 1 U nivers mesylate 40 6-08 tablet by ity of mg tablet 00:00: mouth every Medical morning. Branch pregabalin Yes [id number] 75mg Take 1 U nivers 75 mg 6-08 capsule by ity of capsule 00:00: mouth 3 (three) Medical times Branch daily. 1 pill bid for a week. If pain not better than 2 pills bid. lancets Yes [id number] Use 3X Uni vers (FREESTYLE 6-08 daily. Dx ity of LANCETS) 28 00:00: Code E11.9 [place] gauge Misc 00 Medical Branch insulin Yes [id number] 60U inject 60 [facility] glargine 6-08 Units ity of U-300 conc 00:00: under the [place] ([place] 00 skin 2 Medica l U-300 (two) Branch SOLOSTAR) times 300 unit/mL daily (3 mL) InPn before breakfast and dinner. insulin Yes [id number] Blood Univ ers lispro 6-08 glucose < [...] glucose >300 seek medical attention Lancets Yes [id number] Use as Uni vers (ACCU-CHEK 6-08 directed, ity of FASTCLIX 00:00: DX:250.01, [place] as [place]ING 00 six times Medical DEV) Misc per day. Branch hydrALAZINE Yes [id number] 10mg Take 1 [facility] 10 mg 6-08 tablet by ity of tablet 00:00: mouth 3 (three) Medical times Branch daily as needed (Take 1 Tablet TID PRN if BP >160/90). rosuvastati Yes [id number] 20mg Take 1 Univers n 20 mg 6-08 tablet by ity of tablet 00:00: mouth at [place] 00 bedtime. Medical Branch nicotine 21 Yes [id number] 1{patch Apply 1 Univers mg/24 hr 6-08 } Patch to ity of patch 00:00: area(s) [place] 00 daily. Medical Apply 21mg Branch patch daily x 6 weeks; then apply 14mf patch daily x 2 weeks; then apply 7mg patch daily x 2 weeks. Stop smoking on initiation of therapy nicotine 7 Yes [id number] 1{patch Apply 1 Univers mg/24 hr 6-08 } Patch to ity of patch 00:00: area(s) [place] 00 every 24 Medical (twenty-fo Branch ur) hours. Apply 21mg patch daily x 6 weeks; then apply 14mf patch daily x 2 weeks; then apply 7mg patch daily x 2 weeks. Stop smoking on initiation of therapy nicotine 14 Yes [id number] 1{patch Apply 1 Univers mg/24 hr 6-08 } Patch to ity of patch 00:00: area(s) [place] 00 every 24 Medical (twenty-fo Branch ur) hours. Apply 21mg patch daily x 6 weeks; then apply 14mf patch daily x 2 weeks; then apply 7mg patch daily x 2 weeks. Stop smoking on initiation of therapy ARIPiprazol Yes [id number] 10mg Take 1 Univers e 10 mg 6-08 tablet by ity of tablet 00:00: mouth [place] 00 daily. Medical Branch OXcarbazepi Yes [id number] 300mg Take 1 Univers ne 300 mg 6-08 tablet by ity o f tablet 00:00: mouth 2 [place] 00 (two) Medical times Branch daily. PARoxetine Yes [id number] 40mg Take 1 U nivers mesylate 40 6-08 tablet by ity of mg tablet 00:00: mouth [place] 00 every Medical morning. Branch pregabalin Yes [id number] 75mg Take 1 U nivers 75 mg 6-08 capsule by ity of capsule 00:00: mouth 3 [place] 00 (three) Medical times Branch daily. 1 pill bid for a week. If pain not better than 2 pills bid. lancets Yes [id number] Use 3X Uni vers (FREESTYLE 6-08 daily. Dx ity of LANCETS) 28 00:00: Code E11.9 [place] gauge Misc 00 Medical Branch insulin Yes [id number] 60U inject 60 [facility] glargine 6-08 Units ity of U-300 conc 00:00: under the [place] ([place] 00 skin 2 Medica l U-300 (two) Branch SOLOSTAR) times 300 unit/mL daily (3 mL) InPn before breakfast and dinner. insulin Yes [id number] Blood Univ ers lispro 6-08 glucose < [...] glucose >300 seek medical attention Lancets Yes [id number] Use as Uni vers (ACCU-CHEK 6-08 directed, ity of FASTCLIX 00:00: DX:250.01, [place] as [place] 00 six times Medical DEV) Misc per day. Branch hydrALAZINE Yes [id number] 10mg Take 1 Univers 10 mg 6-08 tablet by ity of tablet 00:00: mouth 3 [place] 00 (three) Medical times Branch daily as needed (Take 1 Tablet TID PRN if BP >160/90). rosuvastati Yes [id number] 20mg Take 1 Univers n 20 mg 6-08 tablet by ity of tablet 00:00: mouth at [place] 00 bedtime. Medical Branch nicotine 21 Yes [id number] 1{patch Apply 1 Univers mg/24 hr 6-08 } Patch to ity of patch 00:00: area(s) [place] 00 daily. Medical Apply 21mg Branch patch daily x 6 weeks; then apply 14mf patch daily x 2 weeks; then apply 7mg patch daily x 2 weeks. Stop smoking on initiation of therapy nicotine 7 2020- Yes [id number] 1{patch Apply 1 Univers mg/24 hr 6-08 } Patch to ity of patch 00:00: area(s) [place] 00 every 24 Medical (twenty-fo Branch ur) hours. Apply 21mg patch daily x 6 weeks; then apply 14mf patch daily x 2 weeks; then apply 7mg patch daily x 2 weeks. Stop smoking on initiation of therapy nicotine 14 Yes [id number] 1{patch Apply 1 Univers mg/24 hr 6-08 } Patch to ity of patch 00:00: area(s) [place] 00 every 24 Medical (twenty-fo Branch ur) hours. Apply 21mg patch daily x 6 weeks; then apply 14mf patch daily x 2 weeks; then apply 7mg patch daily x 2 weeks. Stop smoking on initiation of therapy ARIPiprazol Yes [id number] 10mg Take 1 Univers e 10 mg 6-08 tablet by ity of tablet 00:00: mouth [place] 00 daily. Medical Branch OXcarbazepi Yes [id number] 300mg Take 1 Univers ne 300 mg 6-08 tablet by ity o f tablet 00:00: mouth 2 [place] 00 (two) Medical times Branch daily. PARoxetine Yes [id number] 40mg Take 1 U nivers mesylate 40 6-08 tablet by ity of mg tablet 00:00: mouth [place] 00 every Medical morning. Branch pregabalin Yes [id number] 75mg Take 1 U nivers 75 mg 6-08 capsule by ity of capsule 00:00: mouth 3 [place] 00 (three) Medical times Branch daily. 1 pill bid for a week. If pain not better than 2 pills bid. lancets 2020-0 Yes [id number] Use 3X Uni vers (FREESTYLE 6-08 daily. Dx ity of LANCETS) 28 00:00: Code E11.9 [place] [facility] Mis 00 Medical Branch insulin 2020-0 Yes [id number] 60U inject 60 Univers glargine 6-08 Units ity of U-300 conc 00:00: under the [place] ([place] 00 skin 2 Medica l U-300 (two) Branch SOLOSTAR) times 300 unit/mL daily (3 mL) InPn before breakfast and dinner. insulin Yes [id number] Blood Univ ers lispro 6-08 glucose < [...] glucose >300 seek medical attention Lancets Yes [id number] Use as Uni vers (ACCU-CHEK 6-08 directed, ity of FASTCLIX 00:00: DX:250.01, [place] 00 six times Medical DEV) Misc per day. Branch hydrALAZINE Yes [id number] 10mg Take 1 Univers 10 mg 6-08 tablet by ity of tablet 00:00: mouth 3 [place] 00 (three) Medical times Branch daily as needed (Take 1 Tablet TID PRN if BP >160/90). rosuvastati Yes [id number] 20mg Take 1 Univers n 20 mg 6-08 tablet by ity of tablet 00:00: mouth at [place] 00 bedtime. Medical Branch nicotine Yes [id number] 1{patch Apply 1 Univers mg/24 hr 6-08 } Patch to ity of patch 00:00: area(s) [place] 00 daily. Medical Apply 21mg Branch patch daily x 6 weeks; then apply 14mf patch daily x 2 weeks; then apply 7mg patch daily x 2 weeks. Stop smoking on initiation of therapy nicotine 7 Yes [id number] 1{patch Apply 1 Univers mg/24 hr 6-08 } Patch to ity of patch 00:00: area(s) [place] 00 every 24 Medical (twenty-fo Branch ur) hours. Apply 21mg patch daily x 6 weeks; then apply 14mf patch daily x 2 weeks; then apply 7mg patch daily x 2 weeks. Stop smoking on initiation of therapy nicotine 14 Yes [id number] 1{patch Apply 1 Univers mg/24 hr 6-08 } Patch to ity of patch 00:00: area(s) [place] 00 every 24 Medical (twenty-fo Branch ur) hours. Apply 21mg patch daily x 6 weeks; then apply 14mf patch daily x 2 weeks; then apply 7mg patch daily x 2 weeks. Stop smoking on initiation of therapy ARIPiprazol Yes [id number] 10mg Take 1 Univers e 10 mg 6-08 tablet by ity of tablet 00:00: mouth [place] 00 daily. Medical Branch OXcarbazepi Yes [id number] 300mg Take 1 Univers ne 300 mg 6-08 tablet by ity o f tablet 00:00: mouth 2 [place] 00 (two) Medical times Branch daily. PARoxetine Yes [id number] 40mg Take 1 U nivers mesylate 40 6-08 tablet by ity of mg tablet 00:00: mouth [place] 00 every Medical morning. Branch pregabalin Yes [id number] 75mg Take 1 U nivers 75 mg 6-08 capsule by ity of capsule 00:00: mouth 3 [place] 00 (three) Medical times Branch daily. 1 pill bid for a week. If pain not better than 2 pills bid. lancets Yes [id number] Use 3X Uni vers (FREESTYLE 6-08 daily. Dx ity of LANCETS) 28 00:00: Code E11.9 [place] gauge Misc 00 Medical Branch insulin Yes [id number] 60U inject 60 [facility] glargine 6-08 Units ity of U-300 conc 00:00: under the [place] ([place] 00 skin 2 Medica l U-300 (two) Branch SOLJONERI) times 300 unit/mL daily (3 mL) InPn before breakfast and dinner. insulin Yes [id number] Blood Univ ers lispro 6-08 glucose < [...] glucose >300 seek medical attention Lancets Yes [id number] Use as Uni vers (ACCU-CHEK 6-08 directed, ity of FASTCLIX 00:00: DX:250.01, Alirio as LANCING 00 six times Medical DEV) Misc per day. Branch hydrALAZINE Yes [id number] 10mg Take 1 [facility] 10 mg 6-08 tablet by ity of tablet 00:00: mouth 3 [place] 00 (three) Medical times Branch daily as needed (Take 1 Tablet TID PRN if BP >160/90). rosuvastati Yes [id number] 20mg Take 1 [facility] n 20 mg 6-08 tablet by ity of tablet 00:00: mouth at [place] 00 bedtime. Medical Branch nicotine Yes [id number] 1{patch Apply 1 [facility] mg/24 hr 6-08 } Patch to ity of patch 00:00: area(s) [place] 00 daily. Medical Apply 21mg Branch patch daily x 6 weeks; then apply 14mf patch daily x 2 weeks; then apply 7mg patch daily x 2 weeks. Stop smoking on initiation of therapy nicotine 7 Yes [id number] 1{patch Apply 1 [facility] mg/24 hr 6-08 } Patch to ity of patch 00:00: area(s) [place] 00 every 24 Medical (twenty- Branch ur) hours. Apply 21mg patch daily x 6 weeks; then apply 14mf patch daily x 2 weeks; then apply 7mg patch daily x 2 weeks. Stop smoking on initiation of therapy nicotine Yes [id number] 1{patch Apply 1 [facility] mg/24 hr 6-08 } Patch to ity of patch 00:00: area(s) [place] 00 every 24 Medical (twenty-fo Branch ur) hours. Apply 21mg patch daily x 6 weeks; then apply 14mf patch daily x 2 weeks; then apply 7mg patch daily x 2 weeks. Stop smoking on initiation of therapy ARIPiprazol Yes [id number] 10mg Take 1 [facility] e 10 mg 6-08 tablet by ity of tablet 00:00: mouth [place] 00 daily. Medical Branch OXcarbazepi Yes [id number] 300mg Take 1 [facility] ne 300 mg 6-08 tablet by ity o f tablet 00:00: mouth 2 [place] 00 (two) Medical times Branch daily. PARoxetine Yes [id number] 40mg Take 1 U nivers mesylate 40 6-08 tablet by ity of mg tablet 00:00: mouth [place] 00 every Medical morning. Branch pregabalin Yes [id number] 75mg Take 1 U nivers 75 mg 6-08 capsule by ity of capsule 00:00: mouth 3 [place] 00 (three) Medical times Branch daily. 1 pill bid for a week. If pain not better than 2 pills bid. lancets Yes [id number] Use 3X Uni vers (FREESTYLE 6-08 daily. Dx ity of LANCETS) 28 00:00: Code E11.9 [place] gauge Misc 00 Medical Branch insulin Yes [id number] 60U inject 60 [facility] glargine 6-08 Units ity of U-300 conc 00:00: under the [place] (TOUJEO MAX 00 skin 2 Medica l U-300 (two) Branch SOLJONERI) times 300 unit/mL daily (3 mL) InPn before breakfast and dinner. insulin Yes [id number] Blood Univ ers lispro 6-08 glucose < [...] glucose >300 seek medical attention Lancets Yes [id number] Use as [facility] vers (ACCU-CHEK 6-08 directed, ity of FASTCLIX 00:00: DX:250.01, Alirio as LANCING 00 six times Medical DEV) Misc per day. Branch hydrALAZINE Yes [id number] 10mg Take 1 [facility] 10 mg 6-08 tablet by ity of tablet 00:00: mouth 3 00 (three) Medical times [place] daily as needed (Take 1 Tablet TID PRN if BP >160/90). rosuvastati Yes [id number] 20mg Take 1 [facility] n 20 mg 6-08 tablet by ity of tablet 00:00: mouth at [place] 00 bedtime. Medical Branch nicotine 21 Yes [id number] 1{patch Apply 1 [facility] mg/24 hr 6-08 } Patch to ity of patch 00:00: area(s) [place] 00 daily. Medical Apply 21mg Branch patch daily x 6 weeks; then apply 14mf patch daily x 2 weeks; then apply 7mg patch daily x 2 weeks. Stop smoking on initiation of therapy nicotine 7 Yes [id number] 1{patch Apply 1 [facility] mg/24 hr 6-08 } Patch to ity of patch 00:00: area(s) [place] 00 every 24 Medical (twenty-fo Branch ur) hours. Apply 21mg patch daily x 6 weeks; then apply 14mf patch daily x 2 weeks; then apply 7mg patch daily x 2 weeks. Stop smoking on initiation of therapy nicotine 14 Yes [id number] 1{patch Apply 1 [facility] mg/24 hr 6-08 } Patch to ity of patch 00:00: area(s) [place] 00 every 24 Medical (twenty-fo Branch ur) hours. Apply 21mg patch daily x 6 weeks; then apply 14mf patch daily x 2 weeks; then apply 7mg patch daily x 2 weeks. Stop smoking on initiation of therapy ARIPiprazol Yes [id number] 10mg Take 1 [facility] e 10 mg 6-08 tablet by ity of tablet 00:00: mouth [place] 00 daily. Medical Branch OXcarbazepi Yes [id number] 300mg Take 1 [facility] ne 300 mg 6-08 tablet by ity o f tablet 00:00: mouth 2 00 (two) Medical times Branch daily. PARoxetine Yes [id number] 40mg Take 1 U nivers mesylate 40 6-08 tablet by ity of mg tablet 00:00: mouth [place] 00 every Medical morning. Branch pregabalin Yes [id number] 75mg Take 1 U nivers 75 mg 6-08 capsule by ity of capsule 00:00: mouth 3 (three) Medical times Branch daily. 1 pill bid for a week. If pain not better than 2 pills bid. lancets Yes [id number] Use 3X Uni vers (FREESTYLE 6-08 daily. Dx ity of LANCETS) 28 00:00: Code E11.9 [place] gauge Misc 00 Medical Branch insulin Yes [id number] 60U inject 60 [facility] glargine 6-08 Units ity of U-300 conc 00:00: under the [place] (TOUJEO MAX 00 skin 2 Medica l U-300 (two) Branch SOLOSTAR) times 300 unit/mL daily (3 mL) InPn before breakfast and dinner. insulin Yes [id number] Blood Univ ers lispro 6-08 glucose < [...] glucose >300 seek medical attention Lancets Yes [id number] Use as [facility] vers (ACCU-CHEK 6-08 directed, ity of FASTCLIX 00:00: DX:250.01, [place] as LANCING 00 six times Medical DEV) Misc per day. Branch hydrALAZINE Yes [id number] 10mg Take 1 [facility] 10 mg 6-08 tablet by ity of tablet 00:00: mouth 3 [place] 00 (three) Medical times Branch daily as needed (Take 1 Tablet TID PRN if BP >160/90). rosuvastati Yes [id number] 20mg Take 1 [facility] n 20 mg 6-08 tablet by ity of tablet 00:00: mouth at [place] 00 bedtime. Medical Branch nicotine 21 Yes [id number] 1{patch Apply 1 [facility] mg/24 hr 6-08 } Patch to ity of patch 00:00: area(s) [place] 00 daily. Medical Apply 21mg Branch patch daily x 6 weeks; then apply 14mf patch daily x 2 weeks; then apply 7mg patch daily x 2 weeks. Stop smoking on initiation of therapy nicotine 7 2020- Yes [id number] 1{patch Apply 1 [facility] mg/24 hr 6-08 } Patch to ity of patch 00:00: area(s) [place] 00 every 24 Medical (twenty-fo Branch ur) hours. Apply 21mg patch daily x 6 weeks; then apply 14mf patch daily x 2 weeks; then apply 7mg patch daily x 2 weeks. Stop smoking on initiation of therapy nicotine 14 Yes [id number] 1{patch Apply 1 [facility] mg/24 hr 6-08 } Patch to ity of patch 00:00: area(s) [place] 00 every 24 Medical (twenty-fo Branch ur) hours. Apply 21mg patch daily x 6 weeks; then apply 14mf patch daily x 2 weeks; then apply 7mg patch daily x 2 weeks. Stop smoking on initiation of therapy ARIPiprazol Yes [id number] 10mg Take 1 [facility] e 10 mg 6-08 tablet by ity of tablet 00:00: mouth [place] 00 daily. Medical Branch OXcarbazepi Yes [id number] 300mg Take 1 [facility] ne 300 mg 6-08 tablet by ity o f tablet 00:00: mouth 2 [place] 00 (two) Medical times Branch daily. PARoxetine Yes [id number] 40mg Take 1 U nivers mesylate 40 6-08 tablet by ity of mg tablet 00:00: mouth [place] 00 every Medical morning. Branch lancets Yes [id number] Use 3X Uni vers (FREESTYLE 6-08 daily. Dx ity of LANCETS) 28 00:00: Code E11.9 [place] [facility] Mis 00 Medical Branch insulin Yes [id number] 60U inject 60 [facility] glargine 6-08 Units ity of U-300 conc 00:00: under the [place] (TOUJEO MAX 00 skin 2 Medica l U-300 (two) Branch [email or web address]) times 300 unit/mL daily (3 mL) InPn before breakfast and dinner. insulin Yes [id number] Blood Univ ers lispro 6-08 glucose < [...] glucose >300 seek medical attention Lancets Yes [id number] Use as Uni vers (ACCU-CHEK 6-08 directed, ity of FASTCLIX 00:00: DX:250.01, [place]ir[place] as LANCING 00 six times Medical DEV) Misc per day. Branch hydrALAZINE Yes [id number] 10mg Take 1 [facility] 10 mg 6-08 tablet by ity of tablet 00:00: mouth 3 [place] 00 (three) Medical times Branch daily as needed (Take 1 Tablet TID PRN if BP >160/90). rosuvastati Yes [id number] 20mg Take 1 [facility] n 20 mg 6-08 tablet by ity of tablet 00:00: mouth at [place] 00 bedtime. Medical Branch nicotine Yes [id number] 1{patch Apply 1 [facility] mg/24 hr 6-08 } Patch to ity of patch 00:00: area(s) [place] 00 daily. Medical Apply 21mg Branch patch daily x 6 weeks; then apply 14mf patch daily x 2 weeks; then apply 7mg patch daily x 2 weeks. Stop smoking on initiation of therapy nicotine 7 Yes [id number] 1{patch Apply 1 [facility] mg/24 hr 6-08 } Patch to ity of patch 00:00: area(s) [place] 00 every 24 Medical (twenty-fo Branch ur) hours. Apply 21mg patch daily x 6 weeks; then apply 14mf patch daily x 2 weeks; then apply 7mg patch daily x 2 weeks. Stop smoking on initiation of therapy nicotine 14 Yes [id number] 1{patch Apply 1 [facility] mg/24 hr 6-08 } Patch to ity of patch 00:00: area(s) [place] 00 every 24 Medical (twenty-fo Branch ur) hours. Apply 21mg patch daily x 6 weeks; then apply 14mf patch daily x 2 weeks; then apply 7mg patch daily x 2 weeks. Stop smoking on initiation of therapy ARIPiprazol Yes [id number] 10mg Take 1 [facility] e 10 mg 6-08 tablet by ity of tablet 00:00: mouth [place] 00 daily. Medical Branch OXcarbazepi Yes [id number] 300mg Take 1 [facility] ne 300 mg 6-08 tablet by ity o f tablet 00:00: mouth 2 [place] 00 (two) Medical times Branch daily. PARoxetine Yes [id number] 40mg Take 1 U nivers mesylate 40 6-08 tablet by ity of mg tablet 00:00: mouth [place] 00 every Medical morning. Branch lancets Yes [id number] Use 3X Uni vers (FREESTYLE 6-08 daily. Dx ity of LANCETS) 28 00:00: Code E11.9 [place] gauge Misc 00 Medical Branch insulin Yes [id number] 60U inject 60 [facility] glargine 6-08 Units ity of U-300 conc 00:00: under the [place] (TOUJEO MAX 00 skin 2 Medica l U-300 (two) Branch SOLOSTAR) times 300 unit/mL daily (3 mL) InPn before breakfast and dinner. insulin Yes [id number] Blood Univ ers lispro 6-08 glucose < [...] glucose >300 seek medical attention Lancets Yes [id number] Use as Uni vers (ACCU-CHEK 6-08 directed, ity of FASTCLIX 00:00: DX:250.01, [place] as LANCING 00 six times Medical DEV) Misc per day. Branch hydrALAZINE Yes [id number] 10mg Take 1 [facility] 10 mg 6-08 tablet by ity of tablet 00:00: mouth 3 00 (three) Medical times Branch daily as needed (Take 1 Tablet TID PRN if BP >160/90). rosuvastati Yes [id number] 20mg Take 1 [facility] n 20 mg 6-08 tablet by ity of tablet 00:00: mouth at [place] 00 bedtime. Medical Branch nicotine 21 Yes [id number] 1{patch Apply 1 [facility] mg/24 hr 6-08 } Patch to ity of patch 00:00: area(s) [place] 00 daily. Medical Apply 21mg Branch patch daily x 6 weeks; then apply 14mf patch daily x 2 weeks; then apply 7mg patch daily x 2 weeks. Stop smoking on initiation of therapy nicotine 7 Yes [id number] 1{patch Apply 1 [facility] mg/24 hr 6-08 } Patch to ity of patch 00:00: area(s) [place] 00 every 24 Medical (twenty-fo Branch ur) hours. Apply 21mg patch daily x 6 weeks; then apply 14mf patch daily x 2 weeks; then apply 7mg patch daily x 2 weeks. Stop smoking on initiation of therapy nicotine 14 Yes [id number] 1{patch Apply 1 [facility] mg/24 hr 6-08 } Patch to ity of patch 00:00: area(s) [place] 00 every 24 Medical (twenty-fo Branch ur) hours. Apply 21mg patch daily x 6 weeks; then apply 14mf patch daily x 2 weeks; then apply 7mg patch daily x 2 weeks. Stop smoking on initiation of therapy ARIPiprazol Yes [id number] 10mg Take 1 [facility] e 10 mg 6-08 tablet by ity of tablet 00:00: mouth 00 daily. Medical Branch OXcarbazepi Yes [id number] 300mg Take 1 [facility] ne 300 mg 6-08 tablet by ity o f tablet 00:00: mouth 2 00 (two) Medical times Branch daily. PARoxetine Yes [id number] 40mg Take 1 U nivers mesylate 40 6-08 tablet by ity of mg tablet 00:00: mouth [place] 00 every Medical morning. Branch lancets Yes [id number] Use 3X Uni vers (FREESTYLE 6-08 daily. Dx ity of LANCETS) 28 00:00: Code E11.9 [place] gauge Misc 00 Medical Branch insulin Yes [id number] 60U inject 60 [facility] glargine 6-08 Units ity of U-300 conc 00:00: under the [place] (TOUJE[place] MAX 00 skin 2 Medica l U-300 (two) Branch SOLOSTAR) times 300 unit/mL daily (3 mL) InPn before breakfast and dinner. insulin Yes [id number] Blood Univ ers lispro 6-08 glucose < [...] glucose >300 seek medical attention Lancets Yes [id number] Use as Uni vers (ACCU-CHEK 6-08 directed, ity of FASTCLIX 00:00: DX:250.01, [place] as LANCING 00 six times Medical DEV) Misc per day. Branch hydrALAZINE Yes [id number] 10mg Take 1 [facility] 10 mg 6-08 tablet by ity of tablet 00:00: mouth 3 [place] 00 (three) Medical times Branch daily as needed (Take 1 Tablet TID PRN if BP >160/90). rosuvastati Yes [id number] 20mg Take 1 [facility] n 20 mg 6-08 tablet by ity of tablet 00:00: mouth at [place] 00 bedtime. Medical Branch nicotine 21 Yes [id number] 1{patch Apply 1 [facility] mg/24 hr 6-08 } Patch to ity of patch 00:00: area(s) [place] 00 daily. Medical Apply 21mg Branch patch daily x 6 weeks; then apply 14mf patch daily x 2 weeks; then apply 7mg patch daily x 2 weeks. Stop smoking on initiation of therapy nicotine 7 Yes [id number] 1{patch Apply 1 [facility] mg/24 hr 6-08 } Patch to ity of patch 00:00: area(s) [place] 00 every 24 Medical (twenty-fo Branch ur) hours. Apply 21mg patch daily x 6 weeks; then apply 14mf patch daily x 2 weeks; then apply 7mg patch daily x 2 weeks. Stop smoking on initiation of therapy nicotine 14 Yes [id number] 1{patch Apply 1 [facility] mg/24 hr 6-08 } Patch to ity of patch 00:00: area(s) [place] 00 every 24 Medical (twenty-fo Branch ur) hours. Apply 21mg patch daily x 6 weeks; then apply 14mf patch daily x 2 weeks; then apply 7mg patch daily x 2 weeks. Stop smoking on initiation of therapy ARIPiprazol Yes [id number] 10mg Take 1 [facility] e 10 mg 6-08 tablet by ity of tablet 00:00: mouth [place] 00 daily. Medical Branch OXcarbazepi Yes [id number] 300mg Take 1 [facility] ne 300 mg 6-08 tablet by ity o f tablet 00:00: mouth 2 [place] 00 (two) Medical times Branch daily. PARoxetine Yes [id number] 40mg Take 1 U nivers mesylate 40 6-08 tablet by ity of mg tablet 00:00: mouth [place] 00 every Medical morning. Branch lancets Yes [id number] Use 3X Uni vers (FREESTYLE 6-08 daily. Dx ity of LANCETS) 28 00:00: Code E11.9 [place] gauge Misc 00 Medical Branch insulin Yes [id number] 60U inject 60 [facility] glargine 6-08 Units ity of U-300 conc 00:00: under the [place] (TOUJE[place] MAX 00 skin 2 Medica l U-300 (two) Branch SOLOSTAR) times 300 unit/mL daily (3 mL) InPn before breakfast and dinner. insulin Yes [id number] Blood Univ ers lispro 6-08 glucose < [...] glucose >300 seek medical attention Lancets Yes [id number] Use as Uni vers (ACCU-CHEK 6-08 directed, ity of FASTCLIX 00:00: DX:250.01, [place] as LANCING 00 six times Medical DEV) Misc per day. Branch hydrALAZINE Yes [id number] 10mg Take 1 [facility] 10 mg 6-08 tablet by ity of tablet 00:00: mouth 3 [place] 00 (three) Medical times Branch daily as needed (Take 1 Tablet TID PRN if BP >160/90). rosuvastati Yes [id number] 20mg Take 1 [facility] n 20 mg 6-08 tablet by ity of tablet 00:00: mouth at [place] 00 bedtime. Medical Branch nicotine Yes [id number] 1{patch Apply 1 [facility] mg/24 hr 6-08 } Patch to ity of patch 00:00: area(s) [place] 00 daily. Medical Apply 21mg Branch patch daily x 6 weeks; then apply 14mf patch daily x 2 weeks; then apply 7mg patch daily x 2 weeks. Stop smoking on initiation of therapy nicotine 7 Yes [id number] 1{patch Apply 1 [facility] mg/24 hr 6-08 } Patch to ity of patch 00:00: area(s) [place] 00 every 24 Medical (twenty-fo Branch ur) hours. Apply 21mg patch daily x 6 weeks; then apply 14mf patch daily x 2 weeks; then apply 7mg patch daily x 2 weeks. Stop smoking on initiation of therapy nicotine 14 Yes [id number] 1{patch Apply 1 [facility] mg/24 hr 6-08 } Patch to ity of patch 00:00: area(s) [place] 00 every 24 Medical (twenty-fo Branch ur) hours. Apply 21mg patch daily x 6 weeks; then apply 14mf patch daily x 2 weeks; then apply 7mg patch daily x 2 weeks. Stop smoking on initiation of therapy ARIPiprazol Yes [id number] 10mg Take 1 [facility] e 10 mg 6-08 tablet by ity of tablet 00:00: mouth [place] 00 daily. Medical Branch OXcarbazepi Yes [id number] 300mg Take 1 [facility] ne 300 mg 6-08 tablet by ity o f tablet 00:00: mouth 2 [place] 00 (two) Medical times Branch daily. PARoxetine Yes [id number] 40mg Take 1 U nivers mesylate 40 6-08 tablet by ity of mg tablet 00:00: mouth [place] 00 every Medical morning. Branch lancets Yes [id number] Use 3X Uni vers (FREESTYLE 6-08 daily. Dx ity of LANCETS) 28 00:00: Code E11.9 [place] [facility] Misc 00 Medical Branch insulin Yes [id number] 60U inject 60 [facility] glargine 6-08 Units ity of U-300 conc 00:00: under the [place] (TOUJE[place] MAX 00 skin 2 Medica l U-300 (two) Branch [facility]) times 300 unit/mL daily (3 mL) InPn before breakfast and dinner. insulin Yes [id number] Blood Univ ers lispro 6-08 glucose < [...] glucose >300 seek medical attention Lancets Yes [id number] Use as Uni vers (ACCU-CHEK 6-08 directed, ity of FASTCLIX 00:00: DX:250.01, [place] as L[place]ING 00 six times Medical DEV) Misc per day. Branch hydrALAZINE Yes [id number] 10mg Take 1 [facility] 10 mg 6-08 tablet by ity of tablet 00:00: mouth 3 00 (three) Medical times Branch daily as needed (Take 1 Tablet TID PRN if BP >160/90). rosuvastati Yes [id number] 20mg Take 1 Univers n 20 mg 6-08 tablet by ity of tablet 00:00: mouth at [place] 00 bedtime. Medical Branch nicotine 21 Yes [id number] 1{patch Apply 1 [facility] mg/24 hr 6-08 } Patch to ity of patch 00:00: area(s) [place] 00 daily. Medical Apply 21mg Branch patch daily x 6 weeks; then apply 14mf patch daily x 2 weeks; then apply 7mg patch daily x 2 weeks. Stop smoking on initiation of therapy nicotine 7 Yes [id number] 1{patch Apply 1 [facility] mg/24 hr 6-08 } Patch to ity of patch 00:00: area(s) [place] 00 every 24 Medical (twenty-fo Branch ur) hours. Apply 21mg patch daily x 6 weeks; then apply 14mf patch daily x 2 weeks; then apply 7mg patch daily x 2 weeks. Stop smoking on initiation of therapy nicotine 14 Yes [id number] 1{patch Apply 1 [facility] mg/24 hr 6-08 } Patch to ity of patch 00:00: area(s) [place] 00 every 24 Medical (twenty-fo Branch ur) hours. Apply 21mg patch daily x 6 weeks; then apply 14mf patch daily x 2 weeks; then apply 7mg patch daily x 2 weeks. Stop smoking on initiation of therapy ARIPiprazol Yes [id number] 10mg Take 1 Univers e 10 mg 6-08 tablet by ity of tablet 00:00: mouth [place] 00 daily. Medical Branch OXcarbazepi Yes [id number] 300mg Take 1 [facility] ne 300 mg 6-08 tablet by ity o f tablet 00:00: mouth 2 (two) Medical times Branch daily. PARoxetine Yes [id number] 40mg Take 1 U nivers mesylate 40 6-08 tablet by ity of mg tablet 00:00: mouth [place] 00 every Medical morning. Branch lancets Yes [id number] Use 3X Uni vers (FREESTYLE 6-08 daily. Dx ity of LANCETS) 28 00:00: Code E11.9 [place] gauge Misc 00 Medical Branch insulin Yes [id number] 60U inject 60 [facility] glargine 6-08 Units ity of U-300 conc 00:00: under the [place] ([place] MAX 00 skin 2 Medica l U-300 (two) Branch SOLOSTAR) times 300 unit/mL daily (3 mL) InPn before breakfast and dinner. insulin Yes [id number] Blood Univ ers lispro 6-08 glucose < [...] glucose >300 seek medical attention Lancets Yes [id number] Use as Uni vers (ACCU-CHEK 6-08 directed, ity of FASTCLIX 00:00: DX:250.01, [place] as [place] 00 six times Medical DEV) Misc per day. Branch hydrALAZINE Yes [id number] 10mg Take 1 [facility] 10 mg 6-08 tablet by ity of tablet 00:00: mouth 3 [place] 00 (three) Medical times Branch daily as needed (Take 1 Tablet TID PRN if BP >160/90). rosuvastati Yes [id number] 20mg Take 1 [facility] n 20 mg 6-08 tablet by ity of tablet 00:00: mouth at [place] 00 bedtime. Medical Branch nicotine 21 Yes [id number] 1{patch Apply 1 [facility] mg/24 hr 6-08 } Patch to ity of patch 00:00: area(s) [place] 00 daily. Medical Apply 21mg Branch patch daily x 6 weeks; then apply 14mf patch daily x 2 weeks; then apply 7mg patch daily x 2 weeks. Stop smoking on initiation of therapy nicotine 7 Yes [id number] 1{patch Apply 1 [facility] mg/24 hr 6-08 } Patch to ity of patch 00:00: area(s) [place] 00 every 24 Medical (twenty-fo Branch ur) hours. Apply 21mg patch daily x 6 weeks; then apply 14mf patch daily x 2 weeks; then apply 7mg patch daily x 2 weeks. Stop smoking on initiation of therapy nicotine 14 Yes [id number] 1{patch Apply 1 [facility] mg/24 hr 6-08 } Patch to ity of patch 00:00: area(s) [place] 00 every 24 Medical (twenty-fo Branch ur) hours. Apply 21mg patch daily x 6 weeks; then apply 14mf patch daily x 2 weeks; then apply 7mg patch daily x 2 weeks. Stop smoking on initiation of therapy ARIPiprazol Yes [id number] 10mg Take 1 Univers e 10 mg 6-08 tablet by ity of tablet 00:00: mouth [place] 00 daily. Medical Branch OXcarbazepi Yes [id number] 300mg Take 1 [facility] ne 300 mg 6-08 tablet by ity o f tablet 00:00: mouth 2 [place] 00 (two) Medical times Branch daily. PARoxetine Yes [id number] 40mg Take 1 U nivers mesylate 40 6-08 tablet by ity of mg tablet 00:00: mouth [place] 00 every Medical morning. Branch lancets Yes [id number] Use 3X Uni vers (FREESTYLE 6-08 daily. Dx ity of LANCETS) 28 00:00: Code E11.9 [place] gauge Misc 00 Medical Branch insulin Yes [id number] 60U inject 60 [facility] glargine 6-08 Units ity of U-300 conc 00:00: under the [place] ([place] MAX 00 skin 2 Medica l U-300 (two) Branch SOLOSTAR) times 300 unit/mL daily (3 mL) InPn before breakfast and dinner. insulin Yes [id number] Blood Univ ers lispro 6-08 glucose < [...] glucose >300 seek medical attention Lancets Yes [id number] Use as Uni vers (ACCU-CHEK 6-08 directed, ity of FASTCLIX 00:00: DX:250.01, [place] as [place] 00 six times Medical DEV) Misc per day. Branch hydrALAZINE Yes [id number] 10mg Take 1 [facility] 10 mg 6-08 tablet by ity of tablet 00:00: mouth 3 [place] 00 (three) Medical times Branch daily as needed (Take 1 Tablet TID PRN if BP >160/90). rosuvastati Yes [id number] 20mg Take 1 [facility] n 20 mg 6-08 tablet by ity of tablet 00:00: mouth at [place] 00 bedtime. Medical Branch nicotine Yes [id number] 1{patch Apply 1 [facility] mg/24 hr 6-08 } Patch to ity of patch 00:00: area(s) [place] 00 daily. Medical Apply 21mg Branch patch daily x 6 weeks; then apply 14mf patch daily x 2 weeks; then apply 7mg patch daily x 2 weeks. Stop smoking on initiation of therapy nicotine 7 Yes [id number] 1{patch Apply 1 [facility] mg/24 hr 6-08 } Patch to ity of patch 00:00: area(s) [place] 00 every 24 Medical (twenty-fo Branch ur) hours. Apply 21mg patch daily x 6 weeks; then apply 14mf patch daily x 2 weeks; then apply 7mg patch daily x 2 weeks. Stop smoking on initiation of therapy nicotine 14 Yes [id number] 1{patch Apply 1 [facility] mg/24 hr 6-08 } Patch to ity of patch 00:00: area(s) [place] 00 every 24 Medical (twenty-fo Branch ur) hours. Apply 21mg patch daily x 6 weeks; then apply 14mf patch daily x 2 weeks; then apply 7mg patch daily x 2 weeks. Stop smoking on initiation of therapy OXcarbazepi Yes [id number] 300mg Take 1 [facility] ne 300 mg 6-08 tablet by ity o f tablet 00:00: mouth 2 [place] 00 (two) Medical times Branch daily. lancets Yes [id number] Use 3X Uni vers (FREESTYLE 6-08 daily. Dx ity of LANCETS) 28 00:00: Code E11.9 [place] gauge Misc 00 Medical Branch insulin Yes [id number] 60U inject 60 [facility] glargine 6-08 Units ity of U-300 conc 00:00: under the [place] ([place] MAX 00 skin 2 Medica l U-300 (two) Branch SOLOSTAR) times 300 unit/mL daily (3 mL) InPn before breakfast and dinner. insulin Yes [id number] Blood Univ ers lispro 6-08 glucose < [...] glucose >300 seek medical attention Lancets Yes [id number] Use as Uni vers (ACCU-CHEK 6-08 directed, ity of FASTCLIX 00:00: DX:250.01, [place] 00 six times Medical DEV) Misc per day. Branch hydrALAZINE Yes [id number] 10mg Take 1 [facility] 10 mg 6-08 tablet by ity of tablet 00:00: mouth 3 [place] 00 (three) Medical times Branch daily as needed (Take 1 Tablet TID PRN if BP >160/90). rosuvastati Yes [id number] 20mg Take 1 [facility] n 20 mg 6-08 tablet by ity of tablet 00:00: mouth at [place] 00 bedtime. Medical Branch nicotine 21 Yes [id number] 1{patch Apply 1 [facility] mg/24 hr 6-08 } Patch to ity of patch 00:00: area(s) [place] 00 daily. Medical Apply 21mg Branch patch daily x 6 weeks; then apply 14mf patch daily x 2 weeks; then apply 7mg patch daily x 2 weeks. Stop smoking on initiation of therapy nicotine 7 Yes [id number] 1{patch Apply 1 [facility] mg/24 hr 6-08 } Patch to ity of patch 00:00: area(s) [place] 00 every 24 Medical (twenty-fo Branch ur) hours. Apply 21mg patch daily x 6 weeks; then apply 14mf patch daily x 2 weeks; then apply 7mg patch daily x 2 weeks. Stop smoking on initiation of therapy nicotine 14 Yes [id number] 1{patch Apply 1 [facility] mg/24 hr 6-08 } Patch to ity of patch 00:00: area(s) [place] 00 every 24 Medical (twenty-fo Branch ur) hours. Apply 21mg patch daily x 6 weeks; then apply 14mf patch daily x 2 weeks; then apply 7mg patch daily x 2 weeks. Stop smoking on initiation of therapy OXcarbazepi Yes [id number] 300mg Take 1 [facility] ne 300 mg 6-08 tablet by ity o f tablet 00:00: mouth 2 [place] 00 (two) Medical times Branch daily. lancets Yes [id number] Use 3X Uni vers (FREESTYLE 6-08 daily. Dx ity of LANCETS) 28 00:00: Code E11.9 [place] gauge Misc 00 Medical Branch insulin Yes [id number] 60U inject 60 [facility] glargine 6-08 Units ity of U-300 conc 00:00: under the [place] (TOUJE[place] MAX 00 skin 2 Medica l U-300 (two) Branch SOLOSTAR) times 300 unit/mL daily (3 mL) InPn before breakfast and dinner. insulin Yes [id number] Blood Univ ers lispro 6-08 glucose < [...] glucose >300 seek medical attention Lancets Yes [id number] Use as Uni vers (ACCU-CHEK 6-08 directed, ity of FASTCLIX 00:00: DX:250.01, Alir[place] as LANCING 00 six times Medical DEV) Misc per day. Branch hydrALAZINE Yes [id number] 10mg Take 1 [facility] 10 mg 6-08 tablet by ity of tablet 00:00: mouth 3 [place] 00 (three) Medical times Branch daily as needed (Take 1 Tablet TID PRN if BP >160/90). rosuvastati Yes [id number] 20mg Take 1 [facility] n 20 mg 6-08 tablet by ity of tablet 00:00: mouth at [place] 00 bedtime. Medical Branch nicotine Yes [id number] 1{patch Apply 1 [facility] mg/24 hr 6-08 } Patch to ity of patch 00:00: area(s) [place] 00 daily. Medical Apply 21mg Branch patch daily x 6 weeks; then apply 14mf patch daily x 2 weeks; then apply 7mg patch daily x 2 weeks. Stop smoking on initiation of therapy nicotine 7 Yes [id number] 1{patch Apply 1 [facility] mg/24 hr 6-08 } Patch to ity of patch 00:00: area(s) [place] 00 every 24 Medical (twenty-fo Branch ur) hours. Apply 21mg patch daily x 6 weeks; then apply 14mf patch daily x 2 weeks; then apply 7mg patch daily x 2 weeks. Stop smoking on initiation of therapy nicotine 14 Yes [id number] 1{patch Apply 1 [facility] mg/24 hr 6-08 } Patch to ity of patch 00:00: area(s) [place] 00 every 24 Medical (twenty-fo Branch ur) hours. Apply 21mg patch daily x 6 weeks; then apply 14mf patch daily x 2 weeks; then apply 7mg patch daily x 2 weeks. Stop smoking on initiation of therapy OXcarbazepi Yes [id number] 300mg Take 1 [facility] ne 300 mg 6-08 tablet by ity o f tablet 00:00: mouth 2 [place] 00 (two) Medical times Branch daily. lancets Yes [id number] Use 3X Uni vers (FREESTYLE 6-08 daily. Dx ity of LANCETS) 28 00:00: Code E11.9 [place] gauge Misc 00 Medical Branch insulin Yes [id number] 60U inject 60 [facility] glargine 6-08 Units ity of U-300 conc 00:00: under the [place] (TOUJEO MAX 00 skin 2 Medica l U-300 (two) Branch SOLOSTAR) times 300 unit/mL daily (3 mL) InPn before breakfast and dinner. insulin Yes [id number] Blood Univ ers lispro 6-08 glucose < [...] glucose >300 seek medical attention Lancets Yes [id number] Use as [facility] vers (ACCU-CHEK 6-08 directed, ity of FASTCLIX 00:00: DX:250.01, [place] as LANCING 00 six times Medical DEV) Misc per day. Branch hydrALAZINE Yes [id number] 10mg Take 1 [facility] 10 mg 6-08 tablet by ity of tablet 00:00: mouth 3 [place] 00 (three) Medical times Branch daily as needed (Take 1 Tablet TID PRN if BP >160/90). rosuvastati Yes [id number] 20mg Take 1 [facility] n 20 mg 6-08 tablet by ity of tablet 00:00: mouth at [place] 00 bedtime. Medical Branch nicotine 21 Yes [id number] 1{patch Apply 1 [facility] mg/24 hr 6-08 } Patch to ity of patch 00:00: area(s) [place] 00 daily. Medical Apply 21mg Branch patch daily x 6 weeks; then apply 14mf patch daily x 2 weeks; then apply 7mg patch daily x 2 weeks. Stop smoking on initiation of therapy nicotine 7 Yes [id number] 1{patch Apply 1 [facility] mg/24 hr 6-08 } Patch to ity of patch 00:00: area(s) [place] 00 every 24 Medical (twenty-fo Branch ur) hours. Apply 21mg patch daily x 6 weeks; then apply 14mf patch daily x 2 weeks; then apply 7mg patch daily x 2 weeks. Stop smoking on initiation of therapy nicotine 14 Yes [id number] 1{patch Apply 1 [facility] mg/24 hr 6-08 } Patch to ity of patch 00:00: area(s) [place] 00 every 24 Medical (twenty-fo Branch ur) hours. Apply 21mg patch daily x 6 weeks; then apply 14mf patch daily x 2 weeks; then apply 7mg patch daily x 2 weeks. Stop smoking on initiation of therapy OXcarbazepi Yes [id number] 300mg Take 1 [facility] ne 300 mg 6-08 tablet by ity o f tablet 00:00: mouth 2 [place] 00 (two) Medical times Branch daily. lancets Yes [id number] Use 3X Uni vers (FREESTYLE 6-08 daily. Dx ity of LANCETS) 28 00:00: Code E11.9 [place] gauge Misc 00 Medical Branch insulin Yes [id number] 60U inject 60 [facility] glargine 6-08 Units ity of U-300 conc 00:00: under the [place] (TOUJEO MAX 00 skin 2 Medica l U-300 (two) Branch SOLOSTAR) times 300 unit/mL daily (3 mL) InPn before breakfast and dinner. insulin Yes [id number] Blood Univ ers lispro 6-08 glucose < [...] glucose >300 seek medical attention Lancets Yes [id number] Use as [facility] vers (ACCU-CHEK 6-08 directed, ity of FASTCLIX 00:00: DX:250.01, [place]ING 00 six times Medical DEV) Misc per day. Branch hydrALAZINE Yes [id number] 10mg Take 1 [facility] 10 mg 6-08 tablet by ity of tablet 00:00: mouth 3 [place] 00 (three) Medical times Branch daily as needed (Take 1 Tablet TID PRN if BP >160/90). rosuvastati Yes [id number] 20mg Take 1 [facility] n 20 mg 6-08 tablet by ity of tablet 00:00: mouth at [place] 00 bedtime. Medical Branch nicotine Yes [id number] 1{patch Apply 1 [facility] mg/24 hr 6-08 } Patch to ity of patch 00:00: area(s) [place] 00 daily. Medical Apply 21mg Branch patch daily x 6 weeks; then apply 14mf patch daily x 2 weeks; then apply 7mg patch daily x 2 weeks. Stop smoking on initiation of therapy nicotine 7 Yes [id number] 1{patch Apply 1 [facility] mg/24 hr 6-08 } Patch to ity of patch 00:00: area(s) [place] 00 every 24 Medical (twenty-fo Branch ur) hours. Apply 21mg patch daily x 6 weeks; then apply 14mf patch daily x 2 weeks; then apply 7mg patch daily x 2 weeks. Stop smoking on initiation of therapy nicotine 14 Yes [id number] 1{patch Apply 1 [facility] mg/24 hr 6-08 } Patch to ity of patch 00:00: area(s) [place] 00 every 24 Medical (twenty-fo Branch ur) hours. Apply 21mg patch daily x 6 weeks; then apply 14mf patch daily x 2 weeks; then apply 7mg patch daily x 2 weeks. Stop smoking on initiation of therapy OXcarbazepi Yes [id number] 300mg Take 1 [facility] ne 300 mg 6-08 tablet by ity o f tablet 00:00: mouth 2 [place] 00 (two) Medical times Branch daily. lancets Yes [id number] Use 3X [facility] vers (FREESTYLE 6-08 daily. Dx ity of LANCETS) 28 00:00: Code E11.9 [place] gauge Misc 00 Medical Branch insulin Yes [id number] 60U inject 60 [facility] glargine 6-08 Units ity of U-300 conc 00:00: under the [place] ([place]OUJE[place] MAX 00 skin 2 Medica l U-300 (two) Branch SOLOSTAR) times 300 unit/mL daily (3 mL) InPn before breakfast and dinner. insulin Yes [id number] Blood Univ ers lispro 6-08 glucose < [...] glucose >300 seek medical attention Lancets Yes [id number] Use as [facility] vers (ACCU-CHEK 6-08 directed, ity of FASTCLIX 00:00: DX:250.01, [place] as [place]ING 00 six times Medical DEV) Misc per day. Branch hydrALAZINE Yes [id number] 10mg Take 1 [facility] 10 mg 6-08 tablet by ity of tablet 00:00: mouth 3 [place] 00 (three) Medical times Branch daily as needed (Take 1 Tablet TID PRN if BP >160/90). rosuvastati Yes [id number] 20mg Take 1 [facility] n 20 mg 6-08 tablet by ity of tablet 00:00: mouth at [place] [address] bedtime. Medical Branch nicotine 21 Yes [id number] 1{patch Apply 1 [facility] mg/24 hr 6-08 } Patch to ity of patch 00:00: area(s) [place] 00 daily. Medical Apply 21mg Branch patch daily x 6 weeks; then apply 14mf patch daily x 2 weeks; then apply 7mg patch daily x 2 weeks. Stop smoking on initiation of therapy nicotine 7 Yes [id number] 1{patch Apply 1 [facility] mg/24 hr 6-08 } Patch to ity of patch 00:00: area(s) [place] 00 every 24 Medical (twenty-fo Branch ur) hours. Apply 21mg patch daily x 6 weeks; then apply 14mf patch daily x 2 weeks; then apply 7mg patch daily x 2 weeks. Stop smoking on initiation of therapy nicotine 14 Yes [id number] 1{patch Apply 1 [facility] mg/24 hr 6-08 } Patch to ity of patch 00:00: area(s) [place] 00 every 24 Medical (twenty-fo Branch ur) hours. Apply 21mg patch daily x 6 weeks; then apply 14mf patch daily x 2 weeks; then apply 7mg patch daily x 2 weeks. Stop smoking on initiation of therapy lancets Yes [id number] Use 3X [facility] vers (FREESTYLE 6-08 daily. Dx ity of LANCETS) 28 00:00: Code E11.9 [place] gauge Misc 00 Medical Branch insulin Yes [id number] 60U inject 60 [facility] glargine 6-08 Units ity of U-300 conc 00:00: under the [place] ([place] MAX 00 skin 2 Medica l U-300 (two) Branch SOLOSTAR) times 300 unit/mL daily (3 mL) InPn before breakfast and dinner. insulin Yes [id number] Blood Univ ers lispro 6-08 glucose < [...] glucose >300 seek medical attention Lancets Yes [id number] Use as [facility] vers (ACCU-CHEK 6-08 directed, ity of FASTCLIX 00:00: DX:250.01, [place] as [place] 00 six times Medical DEV) Misc per day. Branch hydrALAZINE Yes [id number] 10mg Take 1 [facility] 10 mg 6-08 tablet by ity of tablet 00:00: mouth 3 [place] 00 (three) Medical times Branch daily as needed (Take 1 Tablet TID PRN if BP >160/90). rosuvastati Yes [id number] 20mg Take 1 [facility] n 20 mg 6-08 tablet by ity of tablet 00:00: mouth at [place] 00 bedtime. Medical Branch nicotine Yes [id number] 1{patch Apply 1 [facility] mg/24 hr 6-08 } Patch to ity of patch 00:00: area(s) [place] 00 daily. Medical Apply 21mg Branch patch daily x 6 weeks; then apply 14mf patch daily x 2 weeks; then apply 7mg patch daily x 2 weeks. Stop smoking on initiation of therapy nicotine 7 Yes [id number] 1{patch Apply 1 [facility] mg/24 hr 6-08 } Patch to ity of patch 00:00: area(s) [place] 00 every 24 Medical (twenty-fo Branch ur) hours. Apply 21mg patch daily x 6 weeks; then apply 14mf patch daily x 2 weeks; then apply 7mg patch daily x 2 weeks. Stop smoking on initiation of therapy nicotine 14 Yes [id number] 1{patch Apply 1 [facility] mg/24 hr 6-08 } Patch to ity of patch 00:00: area(s) [place] 00 every 24 Medical (twenty-fo Branch ur) hours. Apply 21mg patch daily x 6 weeks; then apply 14mf patch daily x 2 weeks; then apply 7mg patch daily x 2 weeks. Stop smoking on initiation of therapy lancets Yes [id number] Use 3X [facility] vers (FREESTYLE 6-08 daily. Dx ity of LANCETS) 28 00:00: Code E11.9 [place] gauge Misc 00 Medical Branch insulin Yes [id number] 60U inject 60 [facility] glargine 6-08 Units ity of U-300 conc 00:00: under the [place] ([place] MAX 00 skin 2 Medica l U-300 (two) Branch SOLOSTAR) times 300 unit/mL daily (3 mL) InPn before breakfast and dinner. insulin Yes [id number] Blood Univ ers lispro 6-08 glucose < [...] glucose >300 seek medical attention Lancets Yes [id number] Use as [facility] vers (ACCU-CHEK 6-08 directed, ity of FASTCLIX 00:00: DX:250.01, [place] as L[place]ING 00 six times Medical DEV) Misc per day. Branch hydrALAZINE Yes [id number] 10mg Take 1 [facility] 10 mg 6-08 tablet by ity of tablet 00:00: mouth 3 [place] 00 (three) Medical times Branch daily as needed (Take 1 Tablet TID PRN if BP >160/90). rosuvastati Yes [id number] 20mg Take 1 [facility] n 20 mg 6-08 tablet by ity of tablet 00:00: mouth at [place] 00 bedtime. Medical Branch nicotine 21 Yes [id number] 1{patch Apply 1 [facility] mg/24 hr 6-08 } Patch to ity of patch 00:00: area(s) [place] 00 daily. Medical Apply 21mg Branch patch daily x 6 weeks; then apply 14mf patch daily x 2 weeks; then apply 7mg patch daily x 2 weeks. Stop smoking on initiation of therapy nicotine 7 2020-0 Yes [id number] 1{patch Apply 1 [facility] mg/24 hr 6-08 } Patch to ity of patch 00:00: area(s) [place] 00 every 24 Medical (twenty-fo Branch ur) hours. Apply 21mg patch daily x 6 weeks; then apply 14mf patch daily x 2 weeks; then apply 7mg patch daily x 2 weeks. Stop smoking on initiation of therapy nicotine 14 2020-0 Yes [id number] 1{patch Apply 1 [facility] mg/24 hr 6-08 } Patch to ity of patch 00:00: area(s) [place] 00 every 24 Medical (twenty-fo Branch ur) hours. Apply 21mg patch daily x 6 weeks; then apply 14mf patch daily x 2 weeks; then apply 7mg patch daily x 2 weeks. Stop smoking on initiation of therapy OXcarbazepi 2020- No [id number] 300mg Take 1 [facility] ne 300 mg 09-12 tablet by ity of tablet 00:00: 00:00 mouth 2 [place] 00 :00 (two) Medical times Branch daily. OXcarbazepi 2020- No [id number] 300mg Take 1 [facility] ne 300 mg 09-12 tablet by ity of tablet 00:00: 00:00 mouth 2 [place] 00 :00 (two) Medical times Branch daily. ARIPiprazol 2020- No [id number] 10mg Take 1 [facility] e 10 mg 09-12 tablet by ity of tablet 00:00: 00:00 mouth [place] 00 :00 daily. Medical Branch PARoxetine 2020- No [id number] 40mg Take 1 [facility] mesylate 40 09-12 tablet by it y of mg tablet 00:00: 00:00 mouth [place] 00 :00 every Medical morning. Branch pregabalin 2020- No [id number] 75mg Take 1 [facility] 75 mg 09-12 capsule by ity of capsule 00:00: 00:00 mouth 3 [place] 00 :00 (three) Medical times Branch daily. 1 pill bid for a week. If pain not better than 2 pills bid. pregabalin 2020- No [id number] 75mg Take 1 [facility] 75 mg 6-08 06-22 capsule by ity of capsule 00:00: 00:00 mouth 3 [place] 00 :00 (three) Medical times Branch daily. 1 pill bid for a week. If pain not better than 2 pills bid. pregabalin 2020-2020- No [id number] 75mg Take 1 [facility] 75 mg 6-11 10-22 capsule by ity of capsule 00:00: 00:00 mouth 3 [place] 00 :00 (three) Medical times Branch daily. 1 pill bid for a week. If pain not better than 2 pills bid. pregabalin 2020- No [id number] 75mg Take 1 [facility] 75 mg 6-11 10-22 capsule by ity of capsule 00:00: 00:00 mouth 3 [place] 00 :00 (three) Medical times Branch daily. 1 pill bid for a week. If pain not better than 2 pills bid. pregabalin 2020- No [id number] 75mg Take 1 [facility] 75 mg 6-11 10-22 capsule by ity of capsule 00:00: 00:00 mouth 3 [place] 00 :00 (three) Medical times Branch daily. 1 pill bid for a week. If pain not better than 2 pills bid. pregabalin 2020- No [id number] 75mg Take 1 [facility] 75 mg 6-11 10-22 capsule by ity of capsule 00:00: 00:00 mouth 3 [place] 00 :00 (three) Medical times Branch daily. 1 pill bid for a week. If pain not better than 2 pills bid. insulin Yes inject [facility] glulisine 7-04 under the ity o f (APIDRA SC) 21:37: skin. [address] insulin Yes inject [facility] glulisine 7-04 under the ity o f (APIDRA SC) 21:37: skin. [address] insulin 2018-0 Yes inject [facility] glulisine 7-04 under the ity o f (APIDRA SC) 21:37: skin. [address] HYDROcodone 2018- Yes 1{tbl} Take 1 Un jimmy -acetaminop 7-04 tablet by ity of hen (NORCO) 21:37: mouth [place] 10-325 mg 52 every 8 Medical tablet (eight) Branch hours. insulin 2018-0 Yes 45U inject 45 Unive rs glargine,hu 7-04 Units ity of m.rec.anlog 21:37: under the [place] ([place]) 52 skin 2 Medica l (two) Branch times daily. insulin Yes inject [facility] glulisine 7-04 under the ity o f (APIDRA SC) 21:37: skin. [address] lisinopril- Yes 1{tbl} Take 1 Un jimmy hydrochloro 7-04 tablet by ity of thiazide 21:37: mouth [place] 20-12.5 mg 52 daily. Medical per tablet Branch PAROXETINE Yes 40mg Take 40 mg U nivers HCL ORAL 7-04 by mouth ity of 21:37: daily. [address] OXcarbazepi Yes 300mg Take 300 U nivers ne 300 mg 7-04 mg by ity of tablet 21:37: mouth 2 [place] [address] (two) Medical times Branch daily. ARIPiprazol Yes 10mg Take 10 mg Univers e 10 mg 7-04 by mouth ity of tablet 21:37: daily. [address] insulin Yes inject [facility] glulisine 7-04 under the ity o f (APIDRA SC) 21:37: skin. [address] lisinopril- Yes 1{tbl} Take 1 Un jimmy hydrochloro 7-04 tablet by ity of thiazide 21:37: mouth [place] 20-12.5 mg 52 daily. Medical per tablet Branch PAROXETINE Yes 40mg Take 40 mg U nivers HCL ORAL 7-04 by mouth ity of 21:37: daily. [address] insulin Yes inject Univers glulisine 7-04 under the ity o f (APIDRA SC) 21:37: skin. [address] lisinopril- Yes 1{tbl} Take 1 Un jimmy hydrochloro 7-04 tablet by ity of thiazide 21:37: mouth [place] 20-12.5 mg 52 daily. Medical per tablet Branch PAROXETINE Yes 40mg Take 40 mg U nivers HCL ORAL 7-04 by mouth ity of 21:37: daily. [address] insulin Yes inject [facility] glulisine 7-04 under the ity o f (APIDRA SC) 21:37: skin. [address] lisinopril- Yes 1{tbl} Take 1 Un jimmy hydrochloro 7-04 tablet by ity of thiazide 21:37: mouth [place] 20-12.5 mg 52 daily. Medical per tablet Branch PAROXETINE Yes 40mg Take 40 mg U nivers HCL ORAL 7-04 by mouth ity of 21:37: daily. [address] insulin Yes inject Univers glulisine 7-04 under the ity o f (APIDRA SC) 21:37: skin. [address] lisinopril- Yes 1{tbl} Take 1 Un jimmy hydrochloro 7-04 tablet by ity of thiazide 21:37: mouth [place] 20-12.5 mg 52 daily. Medical per tablet Branch PAROXETINE Yes 40mg Take 40 mg U nivers HCL ORAL 7-04 by mouth ity of 21:37: daily. [address] insulin Yes inject [facility] glulisine 7-04 under the ity o f (APIDRA SC) 21:37: skin. [address] lisinopril- Yes 1{tbl} Take 1 Un jimmy hydrochloro 7-04 tablet by ity of thiazide 21:37: mouth [place] 20-12.5 mg 52 daily. Medical per tablet Branch PAROXETINE Yes 40mg Take 40 mg U nivers HCL ORAL 7-04 by mouth ity of 21:37: daily. [address] insulin Yes inject [facility] glulisine 7-04 under the ity o f (APIDRA SC) 21:37: skin. [address] PAROXETINE Yes 40mg Take 40 mg U nivers HCL ORAL 7-04 by mouth ity of 21:37: daily. [address] insulin Yes inject [facility] glulisine 7-04 under the ity o f (APIDRA SC) 21:37: skin. [address] PAROXETINE Yes 40mg Take 40 mg U nivers HCL ORAL 7-04 by mouth ity of 21:37: daily. [address] insulin Yes inject Univers glulisine 7-04 under the ity o f (APIDRA SC) 21:37: skin. [address] PAROXETINE [id number] Yes 40mg Take 40 mg U nivers HCL ORAL 7-04 by mouth ity of 21:37: daily. [address] insulin 0 Yes inject [facility] glulisine 7-04 under the ity o f (APIDRA SC) 21:37: skin. [address] PAROXETINE Yes 40mg Take 40 mg U nivers HCL ORAL 7-04 by mouth ity of 21:37: daily. [address] insulin 0 Yes inject Univers glulisine 7-04 under the ity o f (APIDRA SC) 21:37: skin. [address] PAROXETINE Yes 40mg Take 40 mg U nivers HCL ORAL 7-04 by mouth ity of 21:37: daily. [address] insulin Yes inject Univers glulisine 7-04 under the ity o f (APIDRA SC) 21:37: skin. [address] PAROXETINE Yes 40mg Take 40 mg U nivers HCL ORAL 7-04 by mouth ity of 21:37: daily. [address] insulin 0 Yes inject [facility] glulisine 7-04 under the ity o f (APIDRA SC) 21:37: skin. [address] PAROXETINE 0 Yes 40mg Take 40 mg U nivers HCL ORAL 7-04 by mouth ity of 21:37: daily. [address] insulin 0 Yes inject Univers glulisine 7-04 under the ity o f (APIDRA SC) 21:37: skin. [address] PAROXETINE 2018-0 Yes 40mg Take 40 mg U nivers HCL ORAL 7-04 by mouth ity of 21:37: daily. [address] insulin 0 Yes inject Univers glulisine 7-04 under the ity o f (APIDRA SC) 21:37: skin. [address] insulin 2018-0 Yes inject [facility] glulisine 7-04 under the ity o f (APIDRA SC) 21:37: skin. [address] insulin 0 Yes inject Univers glulisine 7-04 under the ity o f (APIDRA SC) 21:37: skin. [address] insulin 2018- Yes inject [facility] glulisine 7-04 under the ity o f (APIDRA SC) 21:37: skin. [address] insulin 2018-0 Yes inject Univers glulisine 7-04 under the ity o f (APIDRA SC) 21:37: skin. [address] insulin Yes inject Univers glulisine 7-04 under the ity o f (APIDRA SC) 21:37: skin. [address] insulin 2018- Yes inject Univers glulisine 7-04 under the ity o f (APIDRA SC) 16:37: skin. [address] insulin Yes inject Univers glulisine 7-04 under the ity o f (APIDRA SC) 16:37: skin. [address] insulin Yes inject Univers glulisine 7-04 under the ity o f (APIDRA SC) 16:37: skin. [address] insulin Yes inject Univers glulisine 7-04 under the ity o f (APIDRA SC) 16:37: skin. [address] insulin Yes 90U QD Inject 90 [...] thiazide 14:31: mouth Medical (PRINZIDE,Z 09 daily. [place] ESTORETIC) 20-12.5 mg per tablet PARoxetine Yes 40mg QD Take [address] (PAXIL) 40 5-27 by mouth [facility] - MG tablet 14:31: every Medical 09 morning. [place] OXcarbazepi Yes 300mg Q.5D Take 300 C [...] :00 Medical Ndle Branch blood sugar Yes Puja MENDOSA s diagnostic 12-10 Dx:E11.9 ity o f (FREESTYLE 00:00: [place] LITE 00 Medical STRIPS) Branch strip blood sugar Yes TID, [facility] diagnostic 12-10 Dx:E11.9 ity o f (FREESTYLE 00:00: [place] LITE 00 Medical STRIPS) Branch strip blood sugar Yes TID, [facility] diagnostic 12-10 Dx:E11.9 ity o f (FREESTYLE 00:00: [place] LITE 00 Medical STRIPS) Branch strip blood sugar Yes TID, [facility] diagnostic 12-10 Dx:E11.9 ity o f (FREESTYLE 00:00: [place] LITE 00 Medical STRIPS) Branch strip blood sugar Yes TID, [facility] diagnostic 12-10 Dx:E11.9 ity o f (FREESTYLE 00:00: [place] LITE 00 Medical STRIPS) Branch strip blood sugar Yes TID, [facility] diagnostic 12-10 Dx:E11.9 ity o f (FREESTYLE 00:00: [place] LITE 00 Medical STRIPS) Branch strip blood sugar 2020- No TID, Unive diagnostic 12-10 Dx:E11.9 ity of (FREESTYLE 00:00: 00:00 [place] LITE 00 :00 Medical STRIPS) Branch strip pregabalin Yes [id number] 1 pill bid [facility] 75 mg 7-31 for a ity of capsule 00:00: week. If [place] 00 pain not Medical better Branch than 2 pills bid. pregabalin 2020- No [id number] 1 pill bid [facility] 75 mg 7-31 06-08 for a ity of capsule 00:00: 00:00 week. If [place] 00 :00 pain not Medical better Branch than 2 pills bid. pregabalin 2020- No [id number] 1 pill bid [facility] 75 mg 7-31 [...] 00:00: TID, [place] LITE METER) 00 DX:E11.9 [facility] mike Kit Branch Blood-Gluco Yes Use as Univ ers se Meter 1-23 directed, ity of (FREESTYLE 00:00: TID, [place] LITE METER) 00 DX:E11.[address] [facility] Kit Branch Blood-Gluco Yes Use as Univ ers se Meter 1-23 directed, ity of (FREESTYLE 00:00: TID, [place] LITE METER) 00 DX:E11.[address] [facility] Kit Branch Blood-Gluco Yes Use as Univ ers se Meter 1-23 directed, ity of (FREESTYLE 00:00: TID, [place] LITE METER) 00 DX:E11.[address] [facility] Kit Branch Blood-Gluco Yes Use as Univ ers se Meter 1-23 directed, ity of (FREESTYLE 00:00: TID, [place] LITE METER) 00 DX:E11.[address] [facility] Kit Branch Blood-Gluco Yes Use as Univ ers se Meter 1-23 directed, ity of (FREESTYLE 00:00: TID, [place] LITE METER) 00 DX:E11.[address] [facility] Kit Branch lancets Yes Use 3X Univers (FREESTYLE 1-23 daily. Dx ity of LANCETS) 28 00:00: Code E11.9 [facility] 00 Medical Branch Blood-Gluco Yes Use as Univ ers se Meter 1-23 directed, ity of (FREESTYLE 00:00: TID, [place] LITE METER) 00 DX:E11.[address] [facility] Kit Branch Blood-Gluco Yes Use as Univ ers se Meter 1-23 directed, ity of (FREESTYLE 00:00: TID, [place] LITE METER) 00 DX:E11.[address] [facility] Kit Branch Blood-Gluco Yes Use as Univ ers se Meter 1-23 directed, ity of (FREESTYLE 00:00: TID, [place] LITE METER) 00 DX:E11.[address] [facility] Kit Branch Blood-Gluco Yes Use as Univ ers se Meter 1-23 directed, ity of (FREESTYLE 00:00: TID, [place] LITE METER) 00 DX:E11.[address] [facility] Kit Branch Blood-Gluco Yes Use as Univ ers se Meter 1-23 directed, ity of (FREESTYLE 00:00: TID, [place] LITE METER) 00 DX:E11.[address] [facility] Kit Branch Blood-Gluco Yes Use as Univ ers se Meter 1-23 directed, ity of (FREESTYLE 00:00: TID, [place] LITE METER) 00 DX:E11.[address] [facility] Kit Branch Blood-Gluco Yes Use as Univ ers se Meter 1-23 directed, ity of (FREESTYLE 00:00: TID, [place] LITE METER) 00 DX:E11.9 [facility] Kit Branch Blood-Gluco Yes Use as Univ ers se Meter 1-23 directed, ity of (FREESTYLE 00:00: TID, [place] LITE METER) 00 DX:E11.[address] [facility] Kit Branch Blood-Gluco Yes Use as Univ ers se Meter 1-23 directed, ity of (FREESTYLE 00:00: TID, [place] LITE METER) 00 DX:E11.[address] [facility] Kit Branch Blood-Gluco Yes Use as Univ ers se Meter 1-23 directed, ity of (FREESTYLE 00:00: TID, [place] LITE METER) 00 DX:E11.[address] [facility] Kit Branch Blood-Gluco Yes Use as Univ ers se Meter 1-23 directed, ity of (FREESTYLE 00:00: TID, [place] LITE METER) 00 DX:E11.[address] [facility] Kit Branch Blood-Gluco Yes Use as Univ ers se Meter 1-23 directed, ity of (FREESTYLE 00:00: TID, [place] LITE METER) 00 DX:E11.[address] [facility] Kit Branch Blood-Gluco Yes Use as Univ ers se Meter 1-23 directed, ity of (FREESTYLE 00:00: TID, [place] LITE METER) 00 DX:E11.[address] [facility] Kit Branch Blood-Gluco Yes Use as Univ ers se Meter 1-23 directed, ity of (FREESTYLE 00:00: TID, [place] LITE METER) 00 DX:E11.[address] [facility] Kit Branch Blood-Gluco 2017-0 Yes Use as Univ ers se Meter 1-23 directed, ity of (FREESTYLE 00:00: TID, [place] LITE METER) 00 DX:E11.9 [facility] Branch Blood-Gluco 2017-0 Yes Use as Univ ers se Meter 1-23 directed, ity of (FREESTYLE 00:00: TID, [place] LITE METER) 00 DX:E11.9 [facility] Blood-Gluco 2017-0 Yes Use as Univ ers se Meter 1-23 directed, ity of (FREESTYLE 00:00: TID, [place] LITE METER) 00 DX:E11.9 [facility] Blood-Gluco 2016-0 Yes Use as Univ ers se Meter 1-23 directed, ity of (FREESTYLE 00:00: TID, [place] LITE METER) 00 DX:E11.9 [facility] Blood-Gluco 2016-0 Yes Use as Univ ers se Meter 1-23 directed, ity of (FREESTYLE 00:00: TID, [place] LITE METER) 00 DX:E11.9 [facility] Blood-Gluco 2016-0 Yes Use as Univ ers se Meter 1-23 directed, ity of (FREESTYLE 00:00: TID, [place] LITE METER) 00 DX:E11.9 [facility] lancets 2016-0 2020- No Use 3X Univers (FREESTYLE 1-23 06-08 daily. Dx ity of LANCETS) 28 00:00: 00:00 Code E11.9 [place] gauge Misc 00 :00 Medical Branch lancets 2016-0 2020- No Use 3X Univers (FREESTYLE 1-23 06-08 daily. Dx ity of LANCETS) 28 00:00: 00:00 Code E11.9 [place] gauge Misc 00 :00 Medical Branch Lancets 2014-0 Yes Use as Univers (ACCU-CHEK 6-09 directed, ity of FASTCLIX) 00:[place] 00 six times Medical per day. Branch Lancets 2020- No Use as Univers (ACCU-CHEK 6-09 06-08 directed, ity of FASTCLIX) 00:00: 00:00 DX[place]250.01, [place] Misc 00 :00 six times Medical per day. Branch Lancets 2020- No Use as Univers (ACCU-CHEK 09-13 06-08 directed, ity of FASTCLIX) 00:00: 00:00 DX:250.01, [place] Misc 00 :00 six times Medical per day. Branch Immunizations Ordered Filled Immunization Date Status Comments Sourc e Immunization Name Name Rubella 2012-07-31 Completed University of 00:00:00 [facility] Rubella 2012-07-31 Completed University of 00:00:00 [facility] Branch Rubella 2012-07-31 Completed University of 00:00:00 [facility] Rubella 2012-07-31 Completed University of 00:00:00 [facility] Rubella 2012-07-31 Completed University of 00:00:00 [facility] Rubella 2012-07-31 Completed University of 00:00:00 [facility] Rubella 2012-07-31 Completed University of 00:00:00 [facility] Rubella 2012-07-31 Completed University of 00:00:00 [facility] Rubella 2012-07-31 Completed University of 00:00:00 [facility] Rubella 2012-07-31 Completed University of 00:00:00 [facility] Rubella 2012-07-31 Completed University of 00:00:00 [facility] Rubella 2012-07-31 Completed University of 00:00:00 [facility] Rubella 2012-07-31 Completed University of 00:00:00 [facility] Rubella 2012-07-31 Completed University of 00:00:00 [facility] Rubella 2012-07-31 Completed University of 00:00:00 [facility] Rubella 2012-07-31 Completed University of 00:00:00 [facility] Rubella 2012-07-31 Completed University of 00:00:00 [facility] Rubella 2012-07-31 Completed University of 00:00:00 [facility] Rubella 2012-07-31 Completed University of 00:00:00 [facility] Rubella 2012-07-31 Completed University of 00:00:00 [facility] Rubella 2012-07-31 Completed University of 00:00:00 [facility] Rubella 2012-07-31 Completed University of 00:00:00 [facility] Rubella 2012-07-31 Completed University of 00:00:00 [facility] Rubella 2012-07-31 Completed University of 00:00:00 [place] [...] Branch Td 2005-09-27 Completed University of 00:00:00 [facility] Vital Signs Vital Name Observation Time Observation Value Comments Source WEIGHT 2021-06-06 06:00:00 69.5 kg WEIGHT 2021-06-05 05:00:00 69.5 kg WEIGHT 2021-06-04 05:44:00 69.5 kg WEIGHT 2021-06-03 06:00:00 71.5 kg WEIGHT 2021-06-02 06:00:00 71.5 kg WEIGHT 2021-06-01 05:00:00 71 kg WEIGHT 2021-05-31 05:00:00 68 kg WEIGHT 2021-05-29 02:00:00 70.988 kg WEIGHT 2021-05-27 06:00:00 68 kg WEIGHT 2021-05-23 05:00:00 69 kg WEIGHT 2021-05-22 06:00:00 68 kg WEIGHT 2021-05-21 06:00:00 68.5 kg WEIGHT 2021-05-20 06:00:00 72.5 kg WEIGHT 2021-05-17 05:00:00 73 kg WEIGHT 2021-05-16 06:00:00 73 kg WEIGHT 2021-05-11 06:00:00 67.9 kg WEIGHT 2021-05-10 06:00:00 67.8 kg WEIGHT 2021-05-09 06:00:00 67.7 kg WEIGHT 2021-05-08 06:00:00 67.7 kg HEIGHT 2021-05-07 13:10:00 162.6 cm WEIGHT 2021-05-07 13:10:00 67.7 kg HEIGHT 2021-05-06 14:06:00 162.6 cm WEIGHT 2021-05-06 14:06:00 89.5 kg WEIGHT 2021-05-06 06:00:00 89.5 kg WEIGHT 2021-05-04 20:00:00 88.4 kg WEIGHT 2021-05-01 08:00:00 96.4 kg HEIGHT 2021-04-28 01:00:00 162.6 cm WEIGHT 2021-04-28 01:00:00 98.9 kg WEIGHT 2021-06-06 06:00:00 69.5 kg WEIGHT 2021-06-05 05:00:00 69.5 kg WEIGHT 2021-06-04 05:44:00 69.5 kg WEIGHT 2021-06-03 06:00:00 71.5 kg WEIGHT 2021-06-02 06:00:00 71.5 kg WEIGHT 2021-06-01 05:00:00 71 kg WEIGHT 2021-05-31 05:00:00 68 kg WEIGHT 2021-05-29 02:00:00 70.988 kg WEIGHT 2021-05-27 06:00:00 68 kg WEIGHT 2021-05-23 05:00:00 69 kg WEIGHT 2021-05-22 06:00:00 68 kg WEIGHT 2021-05-21 06:00:00 68.5 kg WEIGHT 2021-05-20 06:00:00 72.5 kg WEIGHT 2021-05-17 05:00:00 73 kg WEIGHT 2021-05-16 06:00:00 73 kg WEIGHT 2021-05-11 06:00:00 67.9 kg WEIGHT 2021-05-10 06:00:00 67.8 kg WEIGHT 2021-05-09 06:00:00 67.7 kg WEIGHT 2021-05-08 06:00:00 67.7 kg HEIGHT 2021-05-07 13:10:00 162.6 cm WEIGHT 2021-05-07 13:10:00 67.7 kg HEIGHT 2021-05-06 14:06:00 162.6 cm WEIGHT 2021-05-06 14:06:00 89.5 kg WEIGHT 2021-05-06 06:00:00 89.5 kg WEIGHT 2021-05-04 20:00:00 88.4 kg WEIGHT 2021-05-01 08:00:00 96.4 kg HEIGHT 2021-04-28 01:00:00 162.6 cm WEIGHT 2021-04-28 01:00:00 98.9 kg Body weight 2020-10-16 22:13:00 81.647 kg [facility] BMI 2020-10-16 22:13:00 27.37 kg/m2 [facility] Systolic blood 2020-09-26 18:27:00 132 mm[Hg] Univer sity of pressure [facility] Diastolic blood 2020-09-26 18:27:00 84 mm[Hg] Unive rsity of [facility] Heart rate 2020-09-26 18:27:00 110 /min Universi ty [facility] Body temperature 2020-09-26 18:27:00 36.72 [facility] Body weight 2020-09-26 18:27:00 78.427 kg Universi ty [facility] BMI 2020-09-26 18:27:00 26.29 kg/m2 Universi ty [facility] Oxygen saturation in 2020-09-26 18:27:00 100 /min University of Arterial blood by [facility] Pulse oximetry Branch Systolic blood 2020-09-12 20:50:00 171 mm[Hg] Univer sity of [facility] Diastolic blood 2020-09-12 20:50:00 116 mm[Hg] Unive [facility] of [facility] Heart rate 2020-09-12 20:50:00 73 /min Universi ty [facility] Body temperature 2020-09-12 19:11:00 37.06 [facility] Body weight 2020-09-12 19:11:00 81.647 kg Universi ty [facility] BMI 2020-09-12 19:11:00 27.37 kg/m2 Universi ty [facility] Oxygen saturation in 2020-09-12 19:11:00 98 /min University of Arterial blood by [facility] Pulse oximetry Branch Procedures Procedure Date / Time Performed Performing Clinician Olga e VITAMIN D, 25-OH 2020-09-12 20:16:00 Maciel Ortega [facility] FREE T3 2020-09-12 20:16:00 Maciel Ortega [facility] MAGNESIUM 2020-09-12 20:16:00 Maciel Ortega [facility] CONSENT/REFUSAL FOR 2020-09-12 18:47:32 Doctor Unassigned, No Un [facility] DIAGNOSIS AND Name [facility] TREATMENT Plan of Care Planned Activity Planned Date Details Comments Source Future Scheduled 2021-08-[address] [facility]00 (procedure) [code = Medical Center 25939602] Future Scheduled 2019-12-07 INFLUENZA VACCINE (#1) [facility]:00 [code = INFLUENZA Medical Ce nter VACCINE (#1)] Future Scheduled [address] [facility] - Test 00:00:00 malignant neoplasm of [facility] cervix (procedure) [code = 351388776] Future Scheduled 1986 DIABETIC EYE EXAM [facility] - Test 00:00:00 [code = DIABETIC EYE Medical Center EXAM] Future Scheduled 1986 Urine screening for [facility] - Test 00:00:00 protein (procedure) [facility] [code = 597794476] Future Scheduled [address] [facility] - Test 00:00:00 0-64 YRS (1 of 1 - Medical C enter PPSV23) [code = PNEUMOCOCCAL VACCINE 0-64 YRS (1 of 1 - PPSV23)] Encounters Start End Encounter Admission Attending Care Care Encounter Source Date/Time Date/Time Type Type Clinicians Facility Department ID 2021-05-02 Out[facility], [facility] [id number] 14:22:21 Sarahi [id number] [facility] 2021-05-02 Outpatient Monae, [facility] [id number] [address] 14:13:37 Sarahi [id number] [facility] 2021-05-02 Outpatient Monae, [facility] [id number] 14:12:26 Sarahi [id number] [facility] 2021-05-02 [facility] [id number] 14:11:34 Sarahi [id number] [facility] 2021-07-02 2021-07-02 Outpatient Noble CORONEL [facility] [id number] Univers 13:00:00 13:00:00 SONIA [id number] [facility] 2021-04-28 2021-06-15 Inpatient ASHLEY SEVILLA [facility] [id number]00 17:19:00 SUNNY 2021-05-07 2021-05-07 Outpatient [facility] [id number] [facility] 00:00:00 23:59:00 Shi 2021-05-01 2021-05-01 ambulatory [facility] [id number] [facility] 2021-04-28 2021-04-28 Outpatient [facility] [id number] [facility] 00:03:00 23:59:00 Meleciog e of Medicin e 2021-04-16 2021-04-16 ambulatory [facility] [id number] [facility] 2021-04-03 2021-04-03 [facility] 1.2.840.114 [id number] Univers 00:00:00 00:00:00 Sonia KHAN [id number] ity [facility] [id number] [phone] Pr dical NAL 231 [facility] 2021-03-16 2021-03-16 ambulatory [facility]ML[facility] [id number] [facility] 2021-03-12 2021-03-12 ambulatory [facility]MLC [facility] [id number] [facility] 2021-03-07 2021-03-07 Refrachna Yay[facility]ampedroUN[facility] 1.2.840.114 [id number] Univers 00:00:00 00:00:00 Maciel KHAN [id number] i ty [facility] [id number] [phone] Pr dical NAL 044 [facility] 2021-02-21 2021-02-21 ambulatory [facility]LMLC [facility] [id number] [facility] 2021-02-21 2021-02-21 ambulatory [facility]MLC [facility] [id number] [facility] 2021-02-14 2021-02-14 ambulatory [facility]ML[facility] [id number] [facility]00 [facility]pat[facility] Clin[facility] 2021-01-18 2021-01-18 Outpatient Noble [facility] [id number] Univers 15:40:00 15:40:00 SONIA [id number] [facility] 2021-01-18 2021-01-18 [id number] Univers 15:40:00 15:40:00 SONIA [facility] 2021-01-05 2021-01-05 Outpatient [facility] [id number] Univers 16:00:00 16:00:00 SONIA [id number] [facility] 2021-01-05 2021-01-05 Outpatient [facility] [id number] Univers 16:00:00 16:00:00 SONAI [facility] 2020-12-24 2020-12-24 [facility]rachna [facility] 1.2.840.114 [id number] Univers 00:00:00 00:00:00 Maciel Khan [id number] i ty [id number] [phone] Pr dical nal [address] [place] [address] 2020-12-08 2020-12-08 [facility] 1.2.840.114 [id number] Univers 00:00:00 00:00:00 Maciel Khan [id number] i [id number] [phone] Pr dical nal [address] [place] [address] 2020-12-07 2020-12-07 Telephone CARMITA Wallace 1.2.088.503 [id number] Univers 00:00:00 00:00:00 Richard MAHER [id number] i ty of [facility] [id number] Alirio as [phone] [address] 2020-12-06 2020-12-06 Laboratory Only, Ang Db Test [facility] 1.2.8 40.114 [id number] Univers 20:00:23 20:10:23 Only [facility] [id number] ity [facility] [id number] [place] as Chris?Blea [phone] [address] Medical [facility] 2020-12-06 2020-12-06 Outpatient R [facility] [id number] Univers 20:00:00 20:00:00 [id number] [facility] 2020-12-06 2020-12-06 [facility] [id number] Univers 20:00:00 20:00:00 CARMELITA [facility] 2020-11-07 2020-11-07 Out[facility] [id number] Univers 14:20:00 14:20:00 MACIEL [id number] [facility] 2020-11-07 2020-11-07 [facility] [id number] Univers 14:20:00 14:20:00 MACIEL [facility] 2020-11-06 2020-11-06 [facility] 1.2.840.114 [id number] Univers 07:53:23 16:29:19 ne Visit Sonia Agrawal [place] 350.1.13.10 y [facility] [id number] [phone] [address] 2020-11-06 2020-11-06 [facility] 1.2.840.114 [id number] 07:53:23 16:29:19 ne Visit Sonia Agrawal [place] [id number] [place] [id number] Professio [phone] [address] 2020-11-06 2020-11-06 Outpatient R BERNA [facility] [id number] Univers 16:20:00 16:20:00 SONIA [id number] [facility] 2020-11-06 2020-11-06 [facility] [id number] Univers 16:20:00 16:20:00 SONIA [facility] 2020-10-30 2020-10-30 Patient Umang [facility] 1.2.840.114 [id number] Univers 00:00:00 00:00:00 Outreach Gabriela Khan [id number] ity [facility] [id number] [phone] [address] 2020-10-30 2020-10-30 Patient Umang [facility] 1.2.840.114 [id number] 00:00:00 00:00:00 Outreach Gabriela Khan [id number] [place] [id number] Professio [phone] 2020-10-24 2020-10-24 Outpatient R HARPREET [facility] [id number] Univers 14:45:00 14:45:00 EVARISTO Luque720 [facility] 2020-10-24 2020-10-24 Out[facility] [id number] Univers 14:45:00 14:45:00 EVARISTO [facility] 2020-10-16 2020-10-17 Telemedici [facility]UN[facility] 1.2.840.114 [id number] Univers 08:28:02 10:34:58 ne Visit [id number] [id number] [phone] [address] 2020-10-16 2020-10-16 Outpatient R BERNA [facility] [id number] Univers 15:20:00 15:20:00 SONIA [id number] [facility] 2020-10-16 2020-10-16 Outpatient R BERNA [facility] [id number] Univers 15:20:00 15:20:00 SONIA [facility] 2020-10-13 2020-10-13 Telephone Yessenia [facility] 1.2.840.114 [id number] Univers 00:00:00 00:00:00 Maciel Khan 350.1.13.10 i [id number] [phone] [address] 2020-10-12 2020-10-12 [facility] [id number] Univers 08:00:00 08:00:00 MACIEL [id number] [facility] 2020-10-12 2020-10-12 Outpatient R [facility] [id number] Univers 08:00:00 08:00:00 MACIEL [facility] 2020-09-26 2020-09-26 Office [facility] 1.2.840.114 [id number] [facility] 13:18:03 14:36:20 Visit Maciel Khan 350.1.13.10 i [id number] [phone] [address] 2020-09-26 2020-09-26 Outpatient R [facility] [id number] Univers 13:00:00 13:00:00 MACIEL [id number] [facility] 2020-09-26 2020-09-26 Outpatient R [facility] [id number] Univers 13:00:00 13:00:00 MACIEL [facility] 2020-09-20 2020-09-20 Telephone [facility] .2.840.114 [id number] Univers 00:00:00 00:00:00 Maciel Khan 350.1.13.10 [place] [phone] [address] 2020-09-19 2020-09-19 [facility] 1.2.840.114 [id number] Univers 00:00:00 00:00:00 Maciel Khan 350.1.13.10 i [id number] [phone] [facility] 044 [facility] 2020-09-16 2020-09-16 Letter CARMITA Ortega 1.2.840.114 [id number] Univers 00:00:00 00:00:00 (Out) Maciel MAHER 350.1.13.10 it y of [facility] 4.2.7.2.686 Al[place] as [phone] [address] 2020-09-14 2020-09-14 Refill [facility] 1.2.840.114 [id number] Univers 00:00:00 00:00:00 Maciel Khan 350.1.13.10 i [place] [phone] [address] 2020-09-12 2020-09-12 Franchise Development Manager 2, Adc Lab [facility] 1.2.840.114 [id number] Univers 15:07:30 15:22:30 Visit Maciel Ortega 350.1.13.10 ity [facility] [id number] [phone] [facility] 353 [facility] 2020-09-12 2020-09-12 Office [facility] 1.2.840.114 [id number] Univers 13:50:55 15:04:07 Visit Maciel Khan 350.1.13.10 i [place] [phone] [address] 2020-09-12 2020-09-12 Outpatient R YESSENIA [facility] [id number] Univers 13:40:00 13:40:00 MACIEL [id number] cristhian [facility] 2020-09-12 2020-09-12 [facility] [id number] Univers 13:40:00 13:40:00 MACIEL adriana [facility] 2020-09-12 2020-09-12 Fernandez VIZCARRA 1.2.840.114 [id number] Univers 00:00:00 00:00:00 Only UnassignedGUNNAR 350.1.13.10 ity of [facility] 4.2.7.2.686 Alirio as [phone] [facility] 009 Branch 2020-09-12 2020-09-12 Telephone [facility] 1.2.840.114 [id number] Univers 00:00:00 00:00:00 Maciel Khan 350.1.13.10 i [place] [phone] Pr dical nal 044 Branch Building 2020-08-29 2020-08-29 Out[facility] [id number] Univers 15:00:00 15:00:00 MAC[facility]EL [id number] [facility] Results Test Description Test Time Test Comments Results Result Comments Source POCT-GLUCOSE METER 2021-06-15 12:21:16 Test Item Value Reference Range Interpretation Comme nts POC-GLUCOSE METER ([facility]) 308 mg/dL 70-110 H : TESTED AT [address] (test code = 153) [facility], [address]: Public Housing Manager/Techni chandni ID = [id number] for Shadia Krishna POCT-GLUCOSE [id number] 08:47:04 Test Item Value Reference Range Interpretation Comments POC-GLUCOSE METER 430 mg/dL 70-110 HH : Notified RN/MD: ([facility]) (test code = TESTED AT [facility] 6720 153) [facility], [address]: Public Housing Manager/Techni chandni ID = [id number] for Nelson alberto Shadia POCT-GLUCOSE [id number] 21:46:01 Test Item Value Reference Range Interpretation Comments POC-GLUCOSE METER 263 mg/dL 70-110 H : TESTED A T [facility] 6720 ([facility]) (test code = [facility], 153) [address]: Public Housing Manager/Techni chandni ID = [id number] for Fatuma Newman POCT-GLUCOSE [id number] 17:37:08 Test Item Value Reference Range Interpretation Comments POC-GLUCOSE METER 274 mg/dL 70-110 H : TESTED A T [facility] 6720 ([facility]) (test code = [facility], 1537) [address]: Public Housing Manager/Techni chandni ID = [id number] for Um Edi reed SARS-COV2/RT-PCR ([facility])2021-06-14 13:21:53 Test Item Value Reference Range Interpretation Comments SARS-COV2/RT-PCR (test Negative Not Detected, Negative, code = 9960015) See external report for linked test SARS-COV-2 PERFORMING LAB [facility] (test code = 6273263) Negative result for this test determines that SARS-CoV-2 RNA was not present in the specimen above the Limit of Detection (LOD). However, Negative results do not preclude SARS-CoV-2 infection and should not be used as the sole basis for treatment or patient management decisions. Negative results mustbe combined with clinical observations, patient history, and epidemiological information. A false negative result may occur if a specimen is improperly collected, transported or handled. A false negative result should be considered if patient's recent exposures or clinical presentation indicate that COVID-19 (SARS-CoV-2) is likely and diagnostic tests for other causes of illness are negative. Re-testing should be considered in cases of suspected false negatives.The limit of detection for this assay is 800 copies/mL.This SARS CoV-2 test is a real-time RT-PCR test intended for the qualitative detection of nucleic acid from SARS-CoV-2 in a nasopharyngeal swab specimen collected from individuals susp ected of COVID-19 by their healthcare provider.This test has not been Food and Drug Administration (FDA) cleared or approved. This is a modified version of an approved Emergency Use Authorization (EUA) and is in the process of review by the FDA. Once authorized by the FDA, the issued EUA will be effective until the declaration that circumstances exist justifying the authorization of the emergency use of in vitro diagnostic tests for detection and/or diagnosis of COVID-19 is terminated under Section 564(b)(2) of the Act or the EUA is revoked under Section 564(g) of the Act.Fact Sheet for Healthcare Providers:https://www.[employer]/sites/default/files/product/documents/Fact_Shee q_IN_Uvxocxlvl_Tmla_NAQF-IwX-5.pdfFact Sheet for Healthcare Patients:https://www.[employer].com/sites/default/files/product/ documents/Xpvm_Ytwmt_Iaodjmgo_Ehyy_SXON-LzR-2.pdfPerforming Laboratory:[facility] [place], [place] [address]LVXM-YERAEFW METER 2021-06-14 13:18:05 Test Item Value Reference Range Interpretation Comments POC-GLUCOSE METER 219 mg/dL 70-110 H : TESTED A T [facility] 6720 (BEAKER) (test code = [facility] [place], 1538) [address]: Public Housing Manager/Techni chandni ID = [id number] for PONCHO GOLDEN POCT-GLUCOSE [id number] 12:12:29 Test Item Value Reference Range Interpretation Comments POC-GLUCOSE METER 249 mg/dL 70-110 H : TESTED A T [facility] 6720 (BEAKER) (test code = [facility] [place], 1538) 11392: Public Housing Manager/Techni chandni ID = [id number] for Um eh, Akumbu POCT-GLUCOSE [id number] 08:36:56 Test Item Value Reference Range Interpretation Comments POC-GLUCOSE METER 346 mg/dL 70-110 H : TESTED A T [facility] 6720 (BEAKER) (test code = [facility] [place], 1538) 68857: Public Housing Manager/Techni chandni ID = [id number] for Um eh, Akumbu VALPROIC ACID LEVEL, [id number] 06:24:05 Test Item Value Reference Range Interpretation Comments VALPROIC ACID TOTAL (BEAKER) (test 57 ug/mL 50-100 code = 924) Therapeutic range for some clinical conditions may be >100 ug/mLOperator ID - KELSIE MPOCT-GLUCOSE [id number] 21:48:17 Test Item Value Reference Range Interpretation Comments POC-GLUCOSE METER 175 mg/dL 70-110 H : TESTED A T [facility] 6720 (BEAKER) (test code = [facility] [place], 1538) 69846: Public Housing Manager/Techni chandni ID = [id number] for DE NNIS, CARINE POCT-GLUCOSE [id number] 18:24:26 Test Item Value Reference Range Interpretation Comments POC-GLUCOSE METER 85 mg/dL 70-110 : TESTED A T [facility] 6720 (BEAKER) (test code = [facility] [place], 1538) 36330: Public Housing Manager/Techni chandni ID = [id number] for Umeh , Akumbu POCT-GLUCOSE [id number] 12:34:09 Test Item Value Reference Range Interpretation Comments POC-GLUCOSE METER 327 mg/dL 70-110 H : TESTED A T [facility] 6720 (BEAKER) (test code = [facility] [place], [facility]8) 46122: Public Housing Manager/Techni chandni ID = [id number] for Um eh, Akumbu POCT-GLUCOSE [id number] 09:28:00 Test Item Value Reference Range Interpretation Comments POC-GLUCOSE METER 339 mg/dL 70-110 H : TESTED A T [facility] 6720 (BEAKER) (test code = [facility] [place], [facility]8) 79365: Public Housing Manager/Techni chandni ID = [id number] for Um eh, Akumbu POCT-GLUCOSE [id number] 06:02:38 Test Item Value Reference Range Interpretation Comments POC-GLUCOSE METER 349 mg/dL 70-110 H : TESTED A T [facility] 6720 (BEAKER) (test code = [facility] [place], [facility]) 03893: Public Housing Manager/Techni chandni ID = [id number] for Ji sandhu, Catrachitaanique POCT-GLUCOSE [id number] 00:03:23 Test Item Value Reference Range Interpretation Comments POC-GLUCOSE METER 342 mg/dL 70-110 H : TESTED A T [facility] 6720 (BEAKER) (test code = [facility] [place], [facility]) 16499: Public Housing Manager/Techni chandni ID = [id number] for Ji ffelba, Myanique POCT-GLUCOSE [id number] 17:23:27 Test Item Value Reference Range Interpretation Comments POC-GLUCOSE METER 278 mg/dL 70-110 H : TESTED A T [facility] 6720 (BEAKER) (test code = [facility] [place], [facility]8) 71093: Public Housing Manager/Techni chandni ID = [id number] for An derson, Nancy POCT-GLUCOSE [id number] 12:50:31 Test Item Value Reference Range Interpretation Comments POC-GLUCOSE METER 304 mg/dL 70-110 H : TESTED A T [facility] 6720 (BEAKER) (test code = [facility] [place], [facility]8) 29274: Public Housing Manager/Techni chandni ID = [id number] for An derson, Nancy POCT-GLUCOSE [id number] 06:03:37 Test Item Value Reference Range Interpretation Comments POC-GLUCOSE METER 251 mg/dL 70-110 H : TESTED A T [facility] 6720 (BEAKER) (test code = [facility], 1538) 48083: Public Housing Manager/Techni chandni ID = [id number] for Leif Solo BASIC METABOLIC [id number] 05:22:32 Test Item Value Reference Range Interpretation Comments SODIUM (BEAKER) 137 meq/L 136-145 (test code = 381) POTASSIUM (BEAKER) 3.8 meq/L 3.5-5.1 (test code = 379) CHLORIDE (BEAKER) 100 meq/L 98-107 (test code = 382) CO2 (BEAKER) (test 27 meq/L 22-29 code = 355) BLOOD UREA NITROGEN 17 mg/dL 7-21 (BEAKER) (test code = 354) CREATININE (BEAKER) 0.64 mg/dL 0.57-1.25 (test code = 358) GLUCOSE RANDOM 212 mg/dL 70-105 H (BEAKER) (test code = 652) CALCIUM (BEAKER) 9.3 mg/dL 8.4-10.2 (test code = 697) EGFR (BEAKER) (test 101 mL/min/1.73 ESTIM ATED GFR IS code = 1092) sq m NOT ACCURATE CREATININE CLEARANCE IN PREDICTING GLOMERULAR FILTRATION RATE . ESTIMATED GFR I S NOT APPLICABLE FOR DIALYSIS PATIEN TS. Public Housing Manager ID - JHONATHAN WPOCT-GLUCOSE [id number] 23:51:22 Test Item Value Reference Range Interpretation Comments POC-GLUCOSE METER 271 mg/dL 70-110 H : TESTED A T [facility] 6720 (BEAKER) (test code = [facility], 1538) 62948: Public Housing Manager/Techni chadnni ID = [id number] for Leif Solo POCT-GLUCOSE [id number] 17:41:24 Test Item Value Reference Range Interpretation Comments POC-GLUCOSE METER 231 mg/dL 70-110 H : TESTED A T [facility] 6720 (BEAKER) (test code = [facility], 1538) 40085: Public Housing Manager/Techni chandni ID = [id number] for Um eh, Akumbu POCT-GLUCOSE [id number] 11:56:27 Test Item Value Reference Range Interpretation Comments POC-GLUCOSE METER 364 mg/dL 70-110 H : TESTED A T [facility] 6720 (BEAKER) (test code = [facility] [place], 153) 61760: Public Housing Manager/Techni chandni ID = [id number] for Nancy Valencia POCT-GLUCOSE [id number] 07:16:44 Test Item Value Reference Range Interpretation Comments POC-GLUCOSE METER 327 mg/dL 70-110 H : [facility] (test code = [facility] [place], 153) 47775: Public Housing Manager/Techni chandni ID = [id number] for Ji sandhu, Catrachitaanique POCT-GLUCOSE [id number] 06:20:43 Test Item Value Reference Range Interpretation Comments POC-GLUCOSE METER 402 mg/dL 70-110 HH : Will Rep eat Test: ([facility]) (test code = TESTED AT [place] [address] 1538) [facility], 12035: Public Housing Manager/Techni chandni ID = [id number] for Ji sandhu, Myanique POCT-GLUCOSE [id number] 05:15:14 Test Item Value Reference Range Interpretation Comments POC-GLUCOSE METER 422 mg/dL 70-110 HH : Notified RN/MD: ([facility]) (test code = TESTED AT [place] [address] 1538) [facility], 30068: Public Housing Manager/Techni chandni ID = [id number] for Ji sandhu, Myanique POCT-GLUCOSE [id number] 21:06:20 Test Item Value Reference Range Interpretation Comments POC-GLUCOSE METER 137 mg/dL 70-110 H : [facility] (BEAKER[facility] (test code = [facility], 153) 85825: Public Housing Manager/Techni chandni ID = [id number] for Ji sandhu, Myanique POCT-GLUCOSE [id number] 17:46:44 Test Item Value Reference Range Interpretation Comments POC-GLUCOSE METER 186 mg/dL 70-110 H : [facility]) (test code [facility], = 1538) 20461: Public Housing Manager/Techni chandni ID = [id number] for Sharda Johnson, Gene sis POCT-GLUCOSE [id number] 12:07:21 Test Item Value Reference Range Interpretation Comments POC-GLUCOSE METER 248 mg/dL 70-110 H : TESTED A T [facility] 6720 (BEAKER) (test code [facility], = 1538) 92184: Public Housing Manager/Techni chandni ID = [id number] for Sharda Johnson, Gene sis BLOOD [id number] 11:39:52 Test Item Value Reference Range Interpretation Comments CULTURE (BEAKER) A From Aerobi c Bottle (test code = Only Coagulase 1095) negative Staphylococcus GRAM STAIN From aerobic RESULT (BEAKER) bottle only: (test code = gram positive 1123) cocci in clusters POCT-GLUCOSE [id number] 05:48:48 Test Item Value Reference Range Interpretation Comments POC-GLUCOSE METER 263 mg/dL 70-110 H : TESTED A T [facility] 6720 (BEAKER) (test code = [facility], 153) 60330: Public Housing Manager/Techni chandni ID = [id number] for ZAYRA JIN POCT-GLUCOSE [id number] 23:51:40 Test Item Value Reference Range Interpretation Comments POC-GLUCOSE METER 169 mg/dL 70-110 H : TESTED A T [facility] 6720 (BEAKER) (test code = [facility], 1538) 07901: Public Housing Manager/Techni chandni ID = [id number] for DO CONNELL, ZAYRA POCT-GLUCOSE [id number] 20:29:02 Test Item Value Reference Range Interpretation Comments POC-GLUCOSE METER 90 mg/dL 70-110 : TESTED A T [facility] 6720 (BEAKER) (test code = [facility], 1538) 02887: Public Housing Manager/Techni chandni ID = [id number] for ZAYRA TAVERAS BLOOD [id number] 20:00:53 Test Item Value Reference Range Interpretation Comments CULTURE (BEAKER) (test No growth in 5 days code = 1095) POCT-GLUCOSE [id number] 18:02:55 Test Item Value Reference Range Interpretation Comments POC-GLUCOSE METER 101 mg/dL 70-110 : TESTED A T [facility] 6720 (BEAKER) (test code = [facility], 1538) 09128: Public Housing Manager/Techni chandni ID = [id number] for RAMÍREZ-MIKAEL FERGUSON, RADHA POCT-GLUCOSE [id number] 12:01:24 Test Item Value Reference Range Interpretation Comments POC-GLUCOSE METER 226 mg/dL 70-110 H : TESTED A T [facility] 6720 (BEAKER) (test code = [facility], 1538) 19359: Public Housing Manager/Techni chandni ID = [id number] for RAMÍREZ-MIKAEL PHYLLIS, RADHA POCT-GLUCOSE [id number] 08:52:14 Test Item Value Reference Range Interpretation Comments POC-GLUCOSE METER 283 mg/dL 70-110 H : TESTED A T [facility] 6720 (BEAKER) (test code = [facility], 1538) 16705: Public Housing Manager/Techni chandni ID = [id number] for RAMÍREZ-MIKAEL PHYLLIS, RADHA POCT-GLUCOSE [id number] 06:00:28 Test Item Value Reference Range Interpretation Comments POC-GLUCOSE METER 266 mg/dL 70-110 H : TESTED A T [facility] 6720 (BEAKER) (test code [facility], = 1538) 55867: Public Housing Manager/Techni chandni ID = [id number] for SUGU , SHEENAMOL POCT-GLUCOSE [id number] 00:18:08 Test Item Value Reference Range Interpretation Comments POC-GLUCOSE METER 236 mg/dL 70-110 H : TESTED A T [facility] 6720 (BEAKER) (test code [facility], = 1538) 21386: Public Housing Manager/Techni chandni ID = [id number] for SUGU , SHEENAMOL POCT-GLUCOSE [id number] 20:20:55 Test Item Value Reference Range Interpretation Comments POC-GLUCOSE METER 152 mg/dL 70-110 H : TESTED A T [facility] 6720 (BEAKER) (test code [facility], = 1538) 39189: Public Housing Manager/Techni chandni ID = [id number] for SUGU , SHEENAMOL POCT-GLUCOSE [id number] 18:14:16 Test Item Value Reference Range Interpretation Comments POC-GLUCOSE METER 208 mg/dL 70-110 H : TESTED A T [facility] 6720 (BEAKER) (test code = [facility], 1538) 56264: Public Housing Manager/Techni chandni ID = [id number] for LO MARGO, FREEDOM POCT-GLUCOSE [id number] 12:10:06 Test Item Value Reference Range Interpretation Comments POC-GLUCOSE METER 144 mg/dL 70-110 H : TESTED A T [facility] 6720 (BEAKER) (test code = [facility], 1538) 82567: Public Housing Manager/Techni chandni ID = [id number] for LO MARGO, FREEDOM POCT-GLUCOSE [id number] 06:10:43 Test Item Value Reference Range Interpretation Comments POC-GLUCOSE METER 203 mg/dL 70-110 H : TESTED A T [facility] 6720 (BEAKER) (test code = [facility], 1538) 88268: Public Housing Manager/Techni chandni ID = [id number] for ME MS, SENORA POCT-GLUCOSE [id number] 00:07:13 Test Item Value Reference Range Interpretation Comments POC-GLUCOSE METER 129 mg/dL 70-110 H : TESTED A T [facility] 6720 (BEAKER) (test code = [facility], 1538) 10785: Public Housing Manager/Techni chandni ID = [id number] for ME MS, SENORA POCT-GLUCOSE [id number] 17:24:25 Test Item Value Reference Range Interpretation Comments POC-GLUCOSE METER 180 mg/dL 70-110 H : TESTED A T [facility] 6720 (BEAKER) (test code [facility], = 1538) 35914: Public Housing Manager/Techni chandni ID = [id number] for Sharda Johnson, Gene sis MISCELLANEOUS LAB [id number] 13:59:21 Test Item Value Reference Range Interpretation Comments SCAN RESULT (test code = See scanned report [id number]) See scanned reportMISCELLANEOUS LAB [id number] 13:58:39 Test Item Value Reference Range Interpretation Comments SCAN RESULT (test code = See scanned report [id number]) See scanned reportPOCT-GLUCOSE [id number] 11:56:31 Test Item Value Reference Range Interpretation Comments POC-GLUCOSE METER 273 mg/dL 70-110 H : TESTED A T [facility] 6720 (BEAKER) (test code [facility], = 1538) 75174: Public Housing Manager/Techni chandni ID = [id number] for Sharda Johnson, Gene sis POCT-GLUCOSE [id number] 08:20:29 Test Item Value Reference Range Interpretation Comments POC-GLUCOSE METER 128 mg/dL 70-110 H : TESTED A T [facility] 6720 (BEAKER) (test code [place], = 1538) 14702: Public Housing Manager/Techni chandni ID = [id number] for Sharda Dsouzanandez, Gene sis [id number] 06:04:01 Test Item Value Reference Range Interpretation Comments MAGNESIUM (BEAKER) (test code = 1.8 mg/dL 1.6-2.6 627) Public Housing Manager ID - MCKAYLA [id number] 06:04:01 Test Item Value Reference Range Interpretation Comments PHOSPHORUS (BEAKER) (test code = 3.4 mg/dL 2.3-4.7 604) Public Housing Manager ID - MCKAYLA GBASIC METABOLIC [id number] 06:04:00 Test Item Value Reference Range Interpretation Comments SODIUM (BEAKER) 137 meq/L 136-145 (test code = 381) POTASSIUM (BEAKER) 3.9 meq/L 3.5-5.1 (test code = 379) CHLORIDE (BEAKER) 104 meq/L 98-107 (test code = 382) CO2 (BEAKER) (test 26 meq/L 22-29 code = 355) BLOOD UREA NITROGEN 16 mg/dL 7-21 (BEAKER) (test code = 354) CREATININE (BEAKER) 0.58 mg/dL 0.57-1.25 (test code = 358) GLUCOSE RANDOM 274 mg/dL 70-105 H (BEAKER) (test code = 652) CALCIUM (BEAKER) 8.9 mg/dL 8.4-10.2 (test code = 697) EGFR (BEAKER) (test 113 mL/min/1.73 ESTIM ATED GFR IS code = 1092) sq m NOT ACCURATE CREATININE CLEARANCE IN PREDICTING GLOMERULAR FILTRATION RATE . ESTIMATED GFR I S NOT APPLICABLE FOR DIALYSIS PATIEN TS. Public Housing Manager ID - MCKAYLA GCBC W/PLT COUNT & AUTO [id number] 05:32:58 Test Item Value Reference Range Interpretation Comments WHITE BLOOD CELL COUNT (BEAKER) 5.6 K/ L 3.5-10.5 (test code = 775) RED BLOOD CELL COUNT (BEAKER) 3.47 M/ L 3.93-5.22 L (test code = 761) HEMOGLOBIN (BEAKER) (test code = 9.9 GM/DL 11.2-15.7 L 410) HEMATOCRIT (BEAKER) (test code = 30.9 % 34.1-44.9 L 411) MEAN CORPUSCULAR VOLUME (BEAKER) 89.0 fL 79.4-94.8 (test code = 753) MEAN CORPUSCULAR HEMOGLOBIN 28.5 pg 25.6-32.2 (BEAKER) (test code = 751) MEAN CORPUSCULAR HEMOGLOBIN CONC 32.0 GM/DL 32.2-35.5 L (BEAKER) (test code = 752) RED CELL DISTRIBUTION WIDTH 14.5 % 11.7-14.4 H (BEAKER) (test code = 412) PLATELET COUNT (BEAKER) (test 468 K/CU MM 150-450 H code = 756) MEAN PLATELET VOLUME (BEAKER) 9.3 fL 9.4-12.3 L (test code = 754) NUCLEATED RED BLOOD CELLS 0 /100 WBC 0-0 (BEAKER) (test code = 413) NEUTROPHILS RELATIVE PERCENT 53 % (BEAKER) (test code = 429) LYMPHOCYTES RELATIVE PERCENT 35 % (BEAKER) (test code = 430) MONOCYTES RELATIVE PERCENT 7 % (BEAKER) (test code = 431) EOSINOPHILS RELATIVE PERCENT 3 % (BEAKER) (test code = 432) BASOPHILS RELATIVE PERCENT 1 % (BEAKER) (test code = 437) NEUTROPHILS ABSOLUTE COUNT 2.98 K/ L 1.56-6.13 (BEAKER) (test code = 670) LYMPHOCYTES ABSOLUTE COUNT 1.94 K/ L 1.18-3.74 (BEAKER) (test code = 414) MONOCYTES ABSOLUTE COUNT (BEAKER) 0.40 K/ L 0.24-0.36 H (test code = 415) EOSINOPHILS ABSOLUTE COUNT 0.19 K/ L 0.04-0.36 (BEAKER) (test code = 416) BASOPHILS ABSOLUTE COUNT (BEAKER) 0.05 K/ L 0.01-0.08 (test code = 417) IMMATURE GRANULOCYTES-RELATIVE 1 % 0-1 PERCENT (BEAKER) (test code = 2801) POCT-GLUCOSE [id number] 05:11:48 Test Item Value Reference Range Interpretation Comments POC-GLUCOSE METER 261 mg/dL 70-110 H : TESTED A T [facility] 6720 (BEAKER) (test code = [facility] [place], 1538) 26259: Public Housing Manager/Techni chandni ID = [id number] for ALISSA MCWILLIAMS POCT-GLUCOSE [id number] 22:50:26 Test Item Value Reference Range Interpretation Comments POC-GLUCOSE METER 330 mg/dL 70-110 H : TESTED A T [facility] 6720 (BEAKER) (test code = [facility] [place], 1538) 20477: Public Housing Manager/Techni chandni ID = [id number] for ROVERTO EPPERSON POCT-GLUCOSE [id number] 12:24:35 Test Item Value Reference Range Interpretation Comments POC-GLUCOSE METER 265 mg/dL 70-110 H : TESTED A T [facility] 6720 (BEAKER) (test code = [facility] [place], 1538) 84732: Public Housing Manager/Techni chandni ID = [id number] for RADHA PINEDO POCT-GLUCOSE [id number] 05:50:39 Test Item Value Reference Range Interpretation Comments POC-GLUCOSE METER 351 mg/dL 70-110 H : TESTED A T [facility] 6720 (BEAKER) (test code = [facility], 1538) 72457: Public Housing Manager/Techni chandni ID = [id number] for Akila Perry [id number] 04:45:12 Test Item Value Reference Range Interpretation Comments MAGNESIUM (BEAKER) (test code = 1.9 mg/dL 1.6-2.6 627) Public Housing Manager ID - KELSIE [id number] 04:45:12 Test Item Value Reference Range Interpretation Comments PHOSPHORUS (BEAKER) (test code = 3.2 mg/dL 2.3-4.7 604) Public Housing Manager ID - KELSIE MBASIC METABOLIC [id number] 04:45:11 Test Item Value Reference Range Interpretation Comments SODIUM (BEAKER) 136 meq/L 136-145 (test code = 381) POTASSIUM (BEAKER) 4.0 meq/L 3.5-5.1 (test code = 379) CHLORIDE (BEAKER) 102 meq/L 98-107 (test code = 382) CO2 (BEAKER) (test 25 meq/L 22-29 code = 355) BLOOD UREA NITROGEN 14 mg/dL 7-21 (BEAKER) (test code = 354) CREATININE (BEAKER) 0.65 mg/dL 0.57-1.25 (test code = 358) GLUCOSE RANDOM 339 mg/dL 70-105 H (BEAKER) (test code = 652) CALCIUM (BEAKER) 9.4 mg/dL 8.4-10.2 (test code = 697) EGFR (BEAKER) (test 99 mL/min/1.73 ESTIMA CHANDLER GFR IS code = 1092) sq m NOT ACCURATE CREATININE CLEARANCE IN PREDICTING GLOMERULAR FILTRATION RATE . ESTIMATED GFR I S NOT APPLICABLE FOR DIALYSIS PATIEN TS. Public Housing Manager ID - KELSIE MCBC W/PLT COUNT & AUTO [id number] 04:31:05 Test Item Value Reference Range Interpretation Comments WHITE BLOOD CELL COUNT (BEAKER) 8.4 K/ L 3.5-10.5 (test code = 775) RED BLOOD CELL COUNT (BEAKER) 3.51 M/ L 3.93-5.22 L (test code = 761) HEMOGLOBIN (BEAKER) (test code = 9.7 GM/DL 11.2-15.7 L 410) HEMATOCRIT (BEAKER) (test code = 31.5 % 34.1-44.9 L 411) MEAN CORPUSCULAR VOLUME (BEAKER) 89.7 fL 79.4-94.8 (test code = 753) MEAN CORPUSCULAR HEMOGLOBIN 27.6 pg 25.6-32.2 (BEAKER) (test code = 751) MEAN CORPUSCULAR HEMOGLOBIN CONC 30.8 GM/DL 32.2-35.5 L (BEAKER) (test code = 752) RED CELL DISTRIBUTION WIDTH 14.5 % 11.7-14.4 H (BEAKER) (test code = 412) PLATELET COUNT (BEAKER) (test 515 K/CU MM 150-450 H code = 756) MEAN PLATELET VOLUME (BEAKER) 9.2 fL 9.4-12.3 L (test code = 754) NUCLEATED RED BLOOD CELLS 0 /100 WBC 0-0 (BEAKER) (test code = 413) NEUTROPHILS RELATIVE PERCENT 66 % (BEAKER) (test code = 429) LYMPHOCYTES RELATIVE PERCENT 24 % (BEAKER) (test code = 430) MONOCYTES RELATIVE PERCENT 8 % (BEAKER) (test code = 431) EOSINOPHILS RELATIVE PERCENT 2 % (BEAKER) (test code = 432) BASOPHILS RELATIVE PERCENT 0 % (BEAKER) (test code = 437) NEUTROPHILS ABSOLUTE COUNT 5.55 K/ L 1.56-6.13 (BEAKER) (test code = 670) LYMPHOCYTES ABSOLUTE COUNT 2.00 K/ L 1.18-3.74 (BEAKER) (test code = 414) MONOCYTES ABSOLUTE COUNT (BEAKER) 0.66 K/ L 0.24-0.36 H (test code = 415) EOSINOPHILS ABSOLUTE COUNT 0.13 K/ L 0.04-0.36 (BEAKER) (test code = 416) BASOPHILS ABSOLUTE COUNT (BEAKER) 0.03 K/ L 0.01-0.08 (test code = 417) IMMATURE GRANULOCYTES-RELATIVE 1 % 0-1 PERCENT (BEAKER) (test code = 2801) POCT-GLUCOSE [id number] 23:44:29 Test Item Value Reference Range Interpretation Comments POC-GLUCOSE METER 257 mg/dL 70-110 H : TESTED A T [facility] 6720 (BEAKER) (test code = [facility] [place], 1538) 80996: Public Housing Manager/Techni chandni ID = [id number] for Akila Perry POCT-GLUCOSE [id number] 21:42:41 Test Item Value Reference Range Interpretation Comments POC-GLUCOSE METER 257 mg/dL 70-110 H : TESTED A T [facility] 6720 (BEAKER) (test code = [facility] [place], 1538) 48535: Public Housing Manager/Techni chandni ID = [id number] for ALISSA MCWILLIAMS BLOOD CULTURE IDENTIFICATION [id number] 20:23:41 Test Item Value Reference Interpretation Comments Range LISTERIA MONOCYTOGENES Not detected Not detected (test code = 20160108) STAPHYLOCOCCUS (test Detected Not detected A Coagula se negative code = 20160312) Staph specie s (CoNS)- methici llin resistantFirst- line therapy: Vancom ycin MecA DETECTED Possible contamination. The likelihood of pathogenicity i s increased if th e organism is observed in multiple blood cultures obtain ed from separate venipunctures. Reference Range : Not Detected STAPHYLOCOCCUS AUREUS Not detected Not detected (test code = 0744733) STREPTOCOCCUS (test code Not detected Not detected = 8315127) STREPTOCOCCUS AGALACTIAE Not detected Not detected (GROUP B) (test code = 9873541) STREPTOCOCCUS PNEUMONIAE Not detected Not detected (test code = 9445365) STREPTOCOCCUS PYOGENES Not detected Not detected (GROUP A) (test code = 7722476) ACINETOBACTER BAUMANNII Not detected Not detected (test code = 1168542) HAEMOPHILUS INFLUENZAE Not detected Not detected (test code = 7610212) NEISSERIA MENINGITIDIS Not detected Not detected (test code = 9832917) ENTEROBACTERIACEAE (test Not detected Not detected code = 2155681) ENTEROBACTER CLOACOE Not detected Not detected COMPLEX (test code = 0202475) KLEBSIELLA OXYTOCA (test Not detected Not detected code = 5966163) KLEBSIELLA PNEUMONIAE Not detected Not detected (test code = 1650) PROTEUS (test code = Not detected Not detected [id number]) SERRATIA MARCESCENS Not detected Not detected (test code = 6727330) GENA ALBICANS (test Not detected Not detected code = 8322433) GENA GLABRATA (test Not detected Not detected code = 4597385) GENA KRUSEI (test Not detected Not detected code = 1350901) GENA PARAPSILOSIS Not detected Not detected (test code = 0002337) GENA TROPICALIS (test Not detected Not detected code = 8571057) ESCHERICHIA COLI (test Not detected Not detected code = 0317727) METHICILLIN-RESISTANCE Detected Not detected A Note: Antimicrobial GENE (test code = resistance can [id number]) occur via multi ple mechanisms. A N ot Detected result for the [employer] antimicrobial resistance gene assays does not indicate antimicrobial susceptibility. Subculturing is required for species identification and susceptibility testing of isolates. VANCOMYCIN-RESISTANCE GENE (test code = 5476367) CARBAPENEM-RESISTANCE GENE (test code = 7433367) ENTEROCOCCUS-BEAKER Not detected Not detected (test code = 3367418) PSEUDOMONAS Not detected Not detected AERUGINOSA-BEAKER (test code = 7550054) Other bacteria and resistance markers not targeted by this PCR panel cannot be excluded; therefore clinical correlation and follow up of serology, culture results, and other molecular studies is required. The results are not intended to be used as the sole means for clinical diagnosis or patient management decisions. This sample was tested at the [facility] using the [employer] Blood Culture ID Panel. It is FDA cleared and has been verified and approved by the [facility] for clinical use. This laboratory is CLIA-certified and [employer] ofAmerican [employer] (CAP)-accredited to perform high complexity testing.POCT-GLUCOSE [id number] 18:23:28 Test Item Value Reference Range Interpretation Comments POC-GLUCOSE METER 254 mg/dL 70-110 H : TESTED A T [facility] 6720 (BEAKER) (test code [facility], = 1538) [address]: Public Housing Manager/Techni chandni ID = [id number] for Sharda Johnson, Gene sis POCT-GLUCOSE [id number] 11:43:46 Test Item Value Reference Range Interpretation Comments POC-GLUCOSE METER 289 mg/dL 70-110 H : TESTED A T [facility] 6720 (BEAKER) (test code [facility], = 1538) 72603: Public Housing Manager/Techni chandni ID = [id number] for Sharda Johnson, Gene sis ANG, REPLACE G TUBE, W/ [id number] 10:03:00Reason for exam:->dislodged peg tubeGREATER [facility] : 1975 Sex: FFINAL REPORT PROCEDURE: Gastrostomy tube replacement Procedural PersonnelAttending physician(s): Lee Stover M.D.Fellow physician(s): NoneResident physician(s): NoneAdvancedpractice provider(s): None Pre-procedure diagnosis: Dislodged gastrostomy tubePost-procedure diagnosis: SameIndication: Nutritional supportAdditional clinical history: None Complications: No immediate complications. IMPRESSION: Replacement of 14 Kiswahili pigtail gastrostomy tube via previously existing tract. Plan: Tube is ready for immediate use PROCEDURE SUMMARY:- Gastrostomy tube replacement under fluoroscopic guidance- Additional procedure(s): None PROCEDURE DETAILS: Pre-procedureConsent: Informed consent for the procedure including risks, benefits and alternatives was obtained and time- out was performed prior to the procedure.Preparation: The site was prepared and draped using maximal sterile barrier technique including cutaneous antisepsis. Anesthesia/sedationLevel of anesthesia/sedation: None Gastrostomy tube replacementLocal anesthesia was administered. The existing tract was accessed with a catheter and contrast injection performed, showing patent flow of contrast via a narrow but patent tract to the stomach. A wire and catheter were used to navigate through the tract to the stomach lumen. A new 14 Kiswahili pigtail gastrostomy tube was advanced over the wire to the fundus of the stomach.Gastrostomy tube placed: 14 Kiswahili VanSonnenbergInternal catheter securement: Pigtail loopExternal catheter securement: Non-absorbable suture ContrastContrast agent: Isovue-300 Radiation DoseFluoroscopy time (minutes): 1.2 Reference air kerma (mGy): 2.3 Additional DetailsAdditional description of procedure: NoneEquipment details: NoneSpecimens removed: NoneEstimated blood loss (mL): Less than 10Standardized report: [email or web address] AttestationSigner name: Lee García attest that I was present for the entire procedure. I reviewedthe stored images and agree with the report as written. Signed: Lee Stover MDReport Verified Date/Time: 06/05/2021 10:03:26 Reading Location: [facility] Radiology Reading Room Electronically signedby: LEE STOVER MD on 06/05/2021 10:03 AMPOCT-GLUCOSE [id number] 05:28:07 Test Item Value Reference Range Interpretation Comments POC-GLUCOSE METER 295 mg/dL 70-110 H : TESTED A T [facility] 6720 (BEAKER) (test code = [place], 1538) 36046: Public Housing Manager/Techni chandni ID = [id number] for ROBERTO DOE TATYANATanja [id number] 04:11:37 Test Item Value Reference Range Interpretation Comments PHOSPHORUS (BEAKER) (test code = 3.9 mg/dL 2.3-4.7 604) Public Housing Manager ID - EOBASIC METABOLIC [id number] 04:11:36 Test Item Value Reference Range Interpretation Comments SODIUM (BEAKER) 136 meq/L 136-145 (test code = 381) POTASSIUM (BEAKER) 4.0 meq/L 3.5-5.1 (test code = 379) CHLORIDE (BEAKER) 102 meq/L 98-107 (test code = 382) CO2 (BEAKER) (test 25 meq/L 22-29 code = 355) BLOOD UREA NITROGEN 20 mg/dL 7-21 (BEAKER) (test code = 354) CREATININE (BEAKER) 0.60 mg/dL 0.57-1.25 (test code = 358) GLUCOSE RANDOM 244 mg/dL 70-105 H (BEAKER) (test code = 652) CALCIUM (BEAKER) 9.6 mg/dL 8.4-10.2 (test code = 697) EGFR (BEAKER) (test 109 mL/min/1.73 ESTIM ATED GFR IS code = 1092) sq m NOT ACCURATE CREATININE CLEARANCE IN PREDICTING GLOMERULAR FILTRATION RATE . ESTIMATED GFR I S NOT APPLICABLE FOR DIALYSIS PATIEN TS. Public Housing Manager ID - [id number] 04:11:36 Test Item Value Reference Range Interpretation Comments MAGNESIUM (BEAKER) (test code = 1.9 mg/dL 1.6-2.6 627) Public Housing Manager ID - EOCBC W/PLT COUNT & AUTO [id number] 03:42:24 Test Item Value Reference Range Interpretation Comments WHITE BLOOD CELL COUNT (BEAKER) 14.9 K/ L 3.5-10.5 H (test code = 775) RED BLOOD CELL COUNT (BEAKER) 3.69 M/ L 3.93-5.22 L (test code = 761) HEMOGLOBIN (BEAKER) (test code = 10.4 GM/DL 11.2-15.7 L 410) HEMATOCRIT (BEAKER) (test code = 32.6 % 34.1-44.9 L 411) MEAN CORPUSCULAR VOLUME (BEAKER) 88.3 fL 79.4-94.8 (test code = 753) MEAN CORPUSCULAR HEMOGLOBIN 28.2 pg 25.6-32.2 (BEAKER) (test code = 751) MEAN CORPUSCULAR HEMOGLOBIN CONC 31.9 GM/DL 32.2-35.5 L (BEAKER) (test code = 752) RED CELL DISTRIBUTION WIDTH 14.2 % 11.7-14.4 (BEAKER) (test code = 412) PLATELET COUNT (BEAKER) (test 575 K/CU MM 150-450 H code = 756) MEAN PLATELET VOLUME (BEAKER) 8.7 fL 9.4-12.3 L (test code = 754) NUCLEATED RED BLOOD CELLS 0 /100 WBC 0-0 (BEAKER) (test code = 413) NEUTROPHILS RELATIVE PERCENT 78 % (BEAKER) (test code = 429) LYMPHOCYTES RELATIVE PERCENT 14 % (BEAKER) (test code = 430) MONOCYTES RELATIVE PERCENT 6 % (BEAKER) (test code = 431) EOSINOPHILS RELATIVE PERCENT 0 % (BEAKER) (test code = 432) BASOPHILS RELATIVE PERCENT 0 % (BEAKER) (test code = 437) NEUTROPHILS ABSOLUTE COUNT 11.63 K/ L 1.56-6.13 H (BEAKER) (test code = 670) LYMPHOCYTES ABSOLUTE COUNT 2.12 K/ L 1.18-3.74 (BEAKER) (test code = 414) MONOCYTES ABSOLUTE COUNT (BEAKER) 0.96 K/ L 0.24-0.36 H (test code = 415) EOSINOPHILS ABSOLUTE COUNT 0.03 K/ L 0.04-0.36 L (BEAKER) (test code = 416) BASOPHILS ABSOLUTE COUNT (BEAKER) 0.05 K/ L 0.01-0.08 (test code = 417) IMMATURE GRANULOCYTES-RELATIVE 1 % 0-1 PERCENT (BEAKER) (test code = 2801) SARS-COV2/RT-PCR ([facility])2021-06-05 02:30:11 Test Item Value Reference Range Interpretation Comments SARS-COV2/RT-PCR (test code = Negative Negative [id number]) Negative result for this test determines that SARS-CoV-2 RNA was not present in the specimen above the Limit of Detection (LOD). However, Negative results do not preclude SARS-CoV-2 infection and should not be used as the sole basis for treatment or patient management decisions. Negative results must be combined with clinical observations, patient history, and epidemiological information. A false negative result may occur if a specimen is improperly collected, transported, or handled. A false negative result should be considered if patient's recent exposures or clinical presentation indicate that COVID-19 (SARS-CoV-2) is likely and diagnostic tests for other causes of illness are negative. Re-testing should be considered in cases of suspected false negatives.The limit of detection for this assay is 100 copies/mL.This SARS-CoV-2 test is a real-time RT_PCR test intended for the qualitative detection of nucleic acid from SARS-CoV-2 in a nasopharyngeal swab specimen collected from individuals suspected of COVID-19 by their healthcare provider.This test has not been Food and Drug Administration (FDA) cleared or approved. This is a modified version of an approved Emergency Use Authorization (EUA) and is in the process of review by the FDA. Once authorized by the FDA, the issued EUA will be e ffective until the declaration that circumstances exist justifying the authorization of the emergency use of in vitro diagnostic tests for detection and/or diagnosis of COVID-19 is terminated under Section 564(b)(2) of the Act or the EUA is revoked under Section 564(g) of the Act.Testing was performedusing the May SARS-CoV-2 assay.Fact Sheet for Healthcare Providers:https://www.molecular.may/sarah/RT SARS-CoV-2 HCP Fact Sheet 51- 363634.pdfFact Sheet for Healthcare Patients:https://www.molecular.may/sarah/RT SARS-CoV-2 Patient Fact Sheet EN 51-983802T0.pdfPOCT-GLUCOSE [id number] 22:59:49 Test Item Value Reference Range Interpretation Comments POC-GLUCOSE METER 138 mg/dL 70-110 H : TESTED A T [facility] 6720 (Fannect) (test code = [employer] [facility], 1538) 70981: Public Housing Manager/Techni chnadni ID = [id number] for Akila Perry POCT-GLUCOSE [id number] 21:40:18 Test Item Value Reference Range Interpretation Comments POC-GLUCOSE METER 65 mg/dL 70-110 L : TESTED A T [facility] 6720 (Fannect) (test code = [employer] [facility], 1538) 50376: Public Housing Manager/Techni chandni ID = [id number] for CHIQUIS SANTOS POCT-GLUCOSE [id number] 21:19:26 Test Item Value Reference Range Interpretation Comments POC-GLUCOSE METER 64 mg/dL 70-110 L : TESTED A T [facility] 6720 (BEAKER) (test code = TUNDE Dickey [facility], 1538) 27066: Public Housing Manager/Techni chandni ID = [id number] for ALISSA GRAHAM POCT-GLUCOSE [id number] 17:50:44 Test Item Value Reference Range Interpretation Comments POC-GLUCOSE METER 195 mg/dL 70-110 H : Notified RN/MD: (BEAKER) (test code = TESTED AT [facility] 6720 153) MARGY [facility], [address]: Public Housing Manager/Techni chandni ID = [id number] for LL OJAILENE, RONALDKEYA URINALYSIS W/ REFLEX URINE [id number] 15:17:05 Test Item Value Reference Range Interpretation Comments COLOR (BEAKER) (test code = 470) Geena CLARITY (BEAKER) (test code = 469) Cloudy SPECIFIC GRAVITY UA (BEAKER) (test > 1.001-1.035 H code = 468) PH UA (BEAKER) (test code = 467) 6.5 5.0-8.0 PROTEIN UA (BEAKER) (test code = >600 mg/dL Negative A 464) GLUCOSE UA (BEAKER) (test code = 50 mg/dL Negative A 365) KETONES UA (BEAKER) (test code = 20 mg/dL Negative A 371) BILIRUBIN UA (BEAKER) (test code = Negative Negative 462) BLOOD UA (BEAKER) (test code = Negative Negative 461) NITRITE UA (BEAKER) (test code = Negative Negative 465) LEUKOCYTE ESTERASE UA (BEAKER) Small Negative A (test code = 466) UROBILINOGEN UA (BEAKER) (test 2.0 mg/dL 0.2-1.0 H code = 463) RBC UA (BEAKER) (test code = 519) 0 /HPF WBC UA (BEAKER) (test code = 520) 0 /HPF BACTERIA (BEAKER) (test code = None Seen 517) CRYSTALS, URINE (BEAKER) (test None Seen code = 1521) YEAST (BEAKER) (test code = 1585) Many SOURCE(YOHANA) (test code = 2795) Public Housing Manager ID - techRAD, CHEST, 1 VIEW, NON [id number] 14:01:00Reason for exam:->leukocytosisShould this be performed at the bedside?->Yes [facility] 1975 Sex: FFINAL REPORT Exam: RAD, CHEST, 1 VIEW, NON DEPTDate: 06/04/2021 2:00 PM Indication:leukocytosisComparison: 05/30/2021 FINDINGS: Lines/Tubes/Devices: None Lungs/pleura:Borderline lung volumes. Prominent/indistinct pulmonary vascularity. Faint right perihilar and basilar patchy airspace opacities. No pleural effusion. No pneumothorax. Heart/Mediastinum:The cardiomediastinal si lhouette is normal in size and contour. Bones/Soft Tissues: No acute osseous abnormality. 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 IMPRESSION:Borderline lung volumes.Prominent/indistinct pulmonary vascularity, overload/congestion.Faint right perihilar and basilar patchy airspace opacities. Signed: Chicho Wilson MDReport Verified Date/Time: 06/04/2021 14:01:59 Reading Location: [facility] Radiology Reading Room POCT-GLUCOSE [id number] 12:13:44 Test Item Value Reference Range Interpretation Comments POC-GLUCOSE METER 207 mg/dL 70-110 H : TESTED A T [facility] 6720 (BEAKER) (test code = [place], 1538) 26[address]: Public Housing Manager/Techni chandni ID = [id number] for LESLEY JERONIMO POCT-GLUCOSE [id number] 05:13:29 Test Item Value Reference Range Interpretation Comments POC-GLUCOSE METER 120 mg/dL 70-110 H : TESTED A T [facility] 6720 (BEAKER) (test code = [facility] Noble [facility], 1538) 50408: Public Housing Manager/Techni chandni ID = [id number] for Akila Perry [id number] 03:43:24 Test Item Value Reference Range Interpretation Comments MAGNESIUM (BEAKER) (test code = 1.7 mg/dL 1.6-2.6 627) Public Housing Manager ID - KELSIE [id number] 03:43:24 Test Item Value Reference Range Interpretation Comments PHOSPHORUS (BEAKER) (test code = 3.9 mg/dL 2.3-4.7 604) Public Housing Manager ID - KELSIE MBASIC METABOLIC [id number] 03:43:23 Test Item Value Reference Range Interpretation Comments SODIUM (BEAKER) 132 meq/L 136-145 L (test code = 381) POTASSIUM (BEAKER) 3.7 meq/L 3.5-5.1 (test code = 379) CHLORIDE (BEAKER) 99 meq/L 98-107 (test code = 382) CO2 (BEAKER) (test 23 meq/L 22-29 code = 355) BLOOD UREA NITROGEN 25 mg/dL 7-21 H (BEAKER) (test code = 354) CREATININE (BEAKER) 0.61 mg/dL 0.57-1.25 (test code = 358) GLUCOSE RANDOM 176 mg/dL 70-105 H (BEAKER) (test code = 652) CALCIUM (BEAKER) 9.3 mg/dL 8.4-10.2 (test code = 697) EGFR (BEAKER) (test 107 mL/min/1.73 ESTIM ATED GFR IS code = 1092) sq m NOT ACCURATE CREATININE CLEARANCE IN PREDICTING GLOMERULAR FILTRATION RATE . ESTIMATED GFR I S NOT APPLICABLE FOR DIALYSIS PATIEN TS. Public Housing Manager ID - KELSIE MCBC W/PLT COUNT & AUTO [id number] 03:29:16 Test Item Value Reference Range Interpretation Comments WHITE BLOOD CELL COUNT (BEAKER) 14.1 K/ L 3.5-10.5 H (test code = 775) RED BLOOD CELL COUNT (BEAKER) 3.69 M/ L 3.93-5.22 L (test code = 761) HEMOGLOBIN (BEAKER) (test code = 10.3 GM/DL 11.2-15.7 L 410) HEMATOCRIT (BEAKER) (test code = 32.7 % 34.1-44.9 L 411) MEAN CORPUSCULAR VOLUME (BEAKER) 88.6 fL 79.4-94.8 (test code = 753) MEAN CORPUSCULAR HEMOGLOBIN 27.9 pg 25.6-32.2 (BEAKER) (test code = 751) MEAN CORPUSCULAR HEMOGLOBIN CONC 31.5 GM/DL 32.2-35.5 L (BEAKER) (test code = 752) RED CELL DISTRIBUTION WIDTH 14.2 % 11.7-14.4 (BEAKER) (test code = 412) PLATELET COUNT (BEAKER) (test 593 K/CU MM 150-450 H code = 756) MEAN PLATELET VOLUME (BEAKER) 8.5 fL 9.4-12.3 L (test code = 754) NUCLEATED RED BLOOD CELLS 0 /100 WBC 0-0 (BEAKER) (test code = 413) NEUTROPHILS RELATIVE PERCENT 70 % (BEAKER) (test code = 429) LYMPHOCYTES RELATIVE PERCENT 19 % (BEAKER) (test code = 430) MONOCYTES RELATIVE PERCENT 9 % (BEAKER) (test code = 431) EOSINOPHILS RELATIVE PERCENT 1 % (BEAKER) (test code = 432) BASOPHILS RELATIVE PERCENT 0 % (BEAKER) (test code = 437) NEUTROPHILS ABSOLUTE COUNT 9.90 K/ L 1.56-6.13 H (BEAKER) (test code = 670) LYMPHOCYTES ABSOLUTE COUNT 2.66 K/ L 1.18-3.74 (BEAKER) (test code = 414) MONOCYTES ABSOLUTE COUNT (BEAKER) 1.26 K/ L 0.24-0.36 H (test code = 415) EOSINOPHILS ABSOLUTE COUNT 0.12 K/ L 0.04-0.36 (BEAKER) (test code = 416) BASOPHILS ABSOLUTE COUNT (BEAKER) 0.06 K/ L 0.01-0.08 (test code = 417) IMMATURE GRANULOCYTES-RELATIVE 1 % 0-1 PERCENT (BEAKER) (test code = 2801) POCT-GLUCOSE [id number] 02:15:13 Test Item Value Reference Range Interpretation Comments POC-GLUCOSE METER 168 mg/dL 70-110 H : TESTED A T [facility] 6720 (BEAKER) (test code = [facility], 153) 17149: Public Housing Manager/Techni chandni ID = [id number] for Akila Perry POCT-GLUCOSE [id number] 23:47:40 Test Item Value Reference Range Interpretation Comments POC-GLUCOSE METER 75 mg/dL 70-110 : TESTED A T [facility] 6720 ([facility]) (test code = [facility], 1538) 71665: Public Housing Manager/Techni chandni ID = [id number] for Edinson Jimenez POCT-GLUCOSE [id number] 21:44:51 Test Item Value Reference Range Interpretation Comments POC-GLUCOSE METER 184 mg/dL 70-110 H : TESTED A T [facility] 6720 ([facility]) (test code = [facility], 1538) 93098: Public Housing Manager/Techni chandni ID = [id number] for UMalena ARMSTRONGU, ALISSA POCT-GLUCOSE [id number] 19:02:22 Test Item Value Reference Range Interpretation Comments POC-GLUCOSE METER 83 mg/dL 70-110 : TESTED A T [facility] 6720 (BEAKER) (test code = [facility], 1538) 56239: Public Housing Manager/Techni chandni ID = [id number] for [place] s, Kristal POCT-GLUCOSE [id number] 18:03:23 Test Item Value Reference Range Interpretation Comments POC-GLUCOSE METER 52 mg/dL 70-110 L : TESTED A T [facility] 6720 ([facility]) (test code = [facility], 1538) 54876: Public Housing Manager/Techni chandni ID = [id number] for Sharda Johnson Gene sis POCT-GLUCOSE [id number] 11:17:29 Test Item Value Reference Range Interpretation Comments POC-GLUCOSE METER 365 mg/dL 70-110 H : TESTED A T [facility] 6720 (AKER) (test code [facility], = 1538) 46279: Public Housing Manager/Techni chandni ID = [id number] for Rodr alexandra Johnson, Gene sis [id number] 06:35:34 Test Item Value Reference Range Interpretation Comments PHOSPHORUS (BEAKER) (test code = 3.8 mg/dL 2.3-4.7 604) Public Housing Manager ID - SARAHDIOGENES LBASIC METABOLIC [id number] 06:35:33 Test Item Value Reference Range Interpretation Comments SODIUM (BEAKER) 132 meq/L 136-145 L (test code = 381) POTASSIUM (BEAKER) 4.3 meq/L 3.5-5.1 (test code = 379) CHLORIDE (BEAKER) 97 meq/L 98-107 L (test code = 382) CO2 (BEAKER) (test 26 meq/L 22-29 code = 355) BLOOD UREA NITROGEN 22 mg/dL 7-21 H (BEAKER) (test code = 354) CREATININE (BEAKER) 0.68 mg/dL 0.57-1.25 (test code = 358) GLUCOSE RANDOM 350 mg/dL 70-105 H (BEAKER) (test code = 652) CALCIUM (BEAKER) 9.6 mg/dL 8.4-10.2 (test code = 697) EGFR (BEAKER) (test 94 mL/min/1.73 ESTIMA CHANDLER GFR IS code = 1092) sq m NOT ACCURATE CREATININE CLEARANCE IN PREDICTING GLOMERULAR FILTRATION RATE . ESTIMATED GFR I S NOT APPLICABLE FOR DIALYSIS PATIEN TS. Public Housing Manager ID - LETY [id number] 06:35:33 Test Item Value Reference Range Interpretation Comments MAGNESIUM (BEAKER) (test code = 2.0 mg/dL 1.6-2.6 627) Public Housing Manager ID - LETY LCBC W/PLT COUNT & AUTO [id number] 05:59:35 Test Item Value Reference Range Interpretation Comments WHITE BLOOD CELL COUNT (BEAKER) 7.6 K/ L 3.5-10.5 (test code = 775) RED BLOOD CELL COUNT (BEAKER) 4.26 M/ L 3.93-5.22 (test code = 761) HEMOGLOBIN (BEAKER) (test code = 12.0 GM/DL 11.2-15.7 410) HEMATOCRIT (BEAKER) (test code = 38.2 % 34.1-44.9 411) MEAN CORPUSCULAR VOLUME (BEAKER) 89.7 fL 79.4-94.8 (test code = 753) MEAN CORPUSCULAR HEMOGLOBIN 28.2 pg 25.6-32.2 (BEAKER) (test code = 751) MEAN CORPUSCULAR HEMOGLOBIN CONC 31.4 GM/DL 32.2-35.5 L (BEAKER) (test code = 752) RED CELL DISTRIBUTION WIDTH 14.4 % 11.7-14.4 (BEAKER) (test code = 412) PLATELET COUNT (BEAKER) (test 647 K/CU MM 150-450 H code = 756) MEAN PLATELET VOLUME (BEAKER) 8.7 fL 9.4-12.3 L (test code = 754) NUCLEATED RED BLOOD CELLS 0 /100 WBC 0-0 (BEAKER) (test code = 413) NEUTROPHILS RELATIVE PERCENT 57 % (BEAKER) (test code = 429) LYMPHOCYTES RELATIVE PERCENT 29 % (BEAKER) (test code = 430) MONOCYTES RELATIVE PERCENT 10 % (BEAKER) (test code = 431) EOSINOPHILS RELATIVE PERCENT 3 % (BEAKER) (test code = 432) BASOPHILS RELATIVE PERCENT 1 % (BEAKER) (test code = 437) NEUTROPHILS ABSOLUTE COUNT 4.34 K/ L 1.56-6.13 (BEAKER) (test code = 670) LYMPHOCYTES ABSOLUTE COUNT 2.18 K/ L 1.18-3.74 (BEAKER) (test code = 414) MONOCYTES ABSOLUTE COUNT (BEAKER) 0.76 K/ L 0.24-0.36 H (test code = 415) EOSINOPHILS ABSOLUTE COUNT 0.21 K/ L 0.04-0.36 (BEAKER) (test code = 416) BASOPHILS ABSOLUTE COUNT (BEAKER) 0.07 K/ L 0.01-0.08 (test code = 417) IMMATURE GRANULOCYTES-RELATIVE 1 % 0-1 PERCENT (BEAKER) (test code = 2801) POCT-GLUCOSE [id number] 05:44:13 Test Item Value Reference Range Interpretation Comments POC-GLUCOSE METER 330 mg/dL 70-110 H : TESTED Tanja Sloan [facility] 6720 (BEAKER) (test code = [place], 1538) 90020: Public Housing Manager/Techni chandni ID = [id number] for ZAYRA JIN POCT-GLUCOSE [id number] 23:59:25 Test Item Value Reference Range Interpretation Comments POC-GLUCOSE METER 76 mg/dL 70-110 : TESTED A T [facility] 6720 (BEAKER) (test code = [facility], 1538) 02542: Public Housing Manager/Techni chandni ID = [id number] for ZAYRA TAVERAS POCT-GLUCOSE [id number] 18:23:00 Test Item Value Reference Range Interpretation Comments POC-GLUCOSE METER 155 mg/dL 70-110 H : TESTED A T [facility] 6720 (BEAKER) (test code = [facility], 1538) 06451: Public Housing Manager/Techni chandni ID = [id number] for HEIDE WILCOX POCT-GLUCOSE [id number] 11:41:20 Test Item Value Reference Range Interpretation Comments POC-GLUCOSE METER 323 mg/dL 70-110 H : TESTED A T [facility] 6720 (BEAKER) (test code = [facility], 1538) 66684: Public Housing Manager/Techni chandni ID = [id number] for HEIDE WILCOX [id number] 06:43:14 Test Item Value Reference Range Interpretation Comments PHOSPHORUS (BEAKER) (test code = 4.3 mg/dL 2.3-4.7 604) Public Housing Manager ID - KELSIE MBASIC METABOLIC [id number] 06:43:13 Test Item Value Reference Range Interpretation Comments SODIUM (BEAKER) 134 meq/L 136-145 L (test code = 381) POTASSIUM (BEAKER) 3.8 meq/L 3.5-5.1 (test code = 379) CHLORIDE (BEAKER) 100 meq/L 98-107 (test code = 382) CO2 (BEAKER) (test 25 meq/L 22-29 code = 355) BLOOD UREA NITROGEN 20 mg/dL 7-21 (BEAKER) (test code = 354) CREATININE (BEAKER) 0.59 mg/dL 0.57-1.25 (test code = 358) GLUCOSE RANDOM 137 mg/dL 70-105 H (BEAKER) (test code = 652) CALCIUM (BEAKER) 9.4 mg/dL 8.4-10.2 (test code = 697) EGFR (BEAKER) (test 111 mL/min/1.73 ESTIM ATED GFR IS code = 1092) sq m NOT ACCURATE CREATININE CLEARANCE IN PREDICTING GLOMERULAR FILTRATION RATE . ESTIMATED GFR I S NOT APPLICABLE FOR DIALYSIS PATIEN TS. Public Housing Manager ID - KELSIE [id number] 06:43:13 Test Item Value Reference Range Interpretation Comments MAGNESIUM (BEAKER) (test code = 1.9 mg/dL 1.6-2.6 627) Public Housing Manager ID - KELSIE MCBC W/PLT COUNT & AUTO [id number] 06:35:54 Test Item Value Reference Range Interpretation Comments WHITE BLOOD CELL COUNT (BEAKER) 4.9 K/ L 3.5-10.5 (test code = 775) RED BLOOD CELL COUNT (BEAKER) 4.04 M/ L 3.93-5.22 (test code = 761) HEMOGLOBIN (BEAKER) (test code = 11.4 GM/DL 11.2-15.7 410) HEMATOCRIT (BEAKER) (test code = 35.9 % 34.1-44.9 411) MEAN CORPUSCULAR VOLUME (BEAKER) 88.9 fL 79.4-94.8 (test code = 753) MEAN CORPUSCULAR HEMOGLOBIN 28.2 pg 25.6-32.2 (BEAKER) (test code = 751) MEAN CORPUSCULAR HEMOGLOBIN CONC 31.8 GM/DL 32.2-35.5 L (BEAKER) (test code = 752) RED CELL DISTRIBUTION WIDTH 14.4 % 11.7-14.4 (BEAKER) (test code = 412) PLATELET COUNT (BEAKER) (test 634 K/CU MM 150-450 H code = 756) MEAN PLATELET VOLUME (BEAKER) 8.4 fL 9.4-12.3 L (test code = 754) NUCLEATED RED BLOOD CELLS 0 /100 WBC 0-0 (BEAKER) (test code = 413) NEUTROPHILS RELATIVE PERCENT 44 % (BEAKER) (test code = 429) LYMPHOCYTES RELATIVE PERCENT 38 % (BEAKER) (test code = 430) MONOCYTES RELATIVE PERCENT 12 % (BEAKER) (test code = 431) EOSINOPHILS RELATIVE PERCENT 4 % (BEAKER) (test code = 432) BASOPHILS RELATIVE PERCENT 1 % (BEAKER) (test code = 437) NEUTROPHILS ABSOLUTE COUNT 2.15 K/ L 1.56-6.13 (BEAKER) (test code = 670) LYMPHOCYTES ABSOLUTE COUNT 1.84 K/ L 1.18-3.74 (BEAKER) (test code = 414) MONOCYTES ABSOLUTE COUNT (BEAKER) 0.58 K/ L 0.24-0.36 H (test code = 415) EOSINOPHILS ABSOLUTE COUNT 0.17 K/ L 0.04-0.36 (BEAKER) (test code = 416) BASOPHILS ABSOLUTE COUNT (BEAKER) 0.04 K/ L 0.01-0.08 (test code = 417) IMMATURE GRANULOCYTES-RELATIVE 2 % 0-1 H PERCENT (BEAKER) (test code = 2801) POCT-GLUCOSE [id number] 05:48:56 Test Item Value Reference Range Interpretation Comments POC-GLUCOSE METER 138 mg/dL 70-110 H : TESTED A T [facility] ([facility]) (test code = [facility], 1538) [id number]: Public Housing Manager/Techni chandni ID = [id number] for ZAYRA JIN POCT-GLUCOSE [id number] 23:39:28 Test Item Value Reference Range Interpretation Comments POC-GLUCOSE METER 176 mg/dL 70-110 H : TESTED A T [facility] ([facility]) (test code = [facility], 1538) [address]: Public Housing Manager/Techni chandni ID = [id number] for ZAYRA JIN POCT-GLUCOSE [id number] 17:48:38 Test Item Value Reference Range Interpretation Comments POC-GLUCOSE METER 173 mg/dL 70-110 H : TESTED A T [facility] ([facility]) (test code = [facility], 1538) 10[address]: Public Housing Manager/Techni chandni ID = [id number] for SAPNA PINEDOE POCT-GLUCOSE [id number] 12:16:37 Test Item Value Reference Range Interpretation Comments POC-GLUCOSE METER 75 mg/dL 70-110 : TESTED A T [facility] ([facility]) (test code = [facility], 1538) 55[address]: Public Housing Manager/Techni chandni ID = [id number] for RAMÍREZ-REID BOATENGLENE (CELLAVISION MANUAL DIFF)2021-06-01 07:47:08 Test Item Value Reference Range Interpretation Comments NEUTROPHILS - REL 45 % (CELLAVISION)(BEAKER) (test code = 2816) LYMPHOCYTES - REL 37 % (CELLAVISION)(BEAKER) (test code = 2817) MONOCYTES - REL 10 % (CELLAVISION)(BEAKER) (test code = 2818) EOSINOPHILS - REL 3 % (CELLAVISION)(BEAKER) (test code = 2819) BASOPHILS - REL 1 % (CELLAVISION)(BEAKER) (test code = 2820) MYELOCYTES - REL 4 % 0-0 H (CELLAVISION)(BEAKER) (test code = 2822) NEUTROPHILS - ABS 2.21 K/ul 1.56-6.13 (CELLAVISION)(BEAKER) (test code = 2830) LYMPHOCYTES - ABS 1.81 K/ul 1.18-3.74 (CELLAVISION)(BEAKER) (test code = 2831) MONOCYTES - ABS 0.49 K/uL 0.24-0.36 H (CELLAVISION)(BEAKER) (test code = 2832) EOSINOPHILS - ABS 0.15 K/uL 0.04-0.36 (CELLAVISION)(BEAKER) (test code = 2834) BASOPHILS - ABS 0.05 K/uL 0.01-0.08 (CELLAVISION)(BEAKER) (test code = 2835) MYELOCYTES-ABS 0.20 K/uL 0.00-0.00 H (CELLAVISION)(BEAKER) (test code = 2837) TOTAL COUNTED (BEAKER) (test code 100 = 1351) WBC MORPHOLOGY (BEAKER) (test Normal code = 487) GIANT PLATELETS (BEAKER) (test Present code = 313) POLYCHROMATOPHILLIC RBCS(BEAKER) 2+ moderate (test code = 478) ANISOCYTOSIS (BEAKER) (test code 2+ moderate = 961) MICROCYTES (BEAKER) (test code = 2+ moderate 965) ARTIFACT (CELLAVISION)(BEAKER) Present (test code = 3432) PLATELET CONCENTRATION Increased (CELLAVISION)(BEAKER) (test code = 3438) Public Housing Manager ID - bj Eddy comments: Slide comments:CBC W/PLT COUNT & AUTO [id number] 07:47:07 Test Item Value Reference Range Interpretation Comments WHITE BLOOD CELL COUNT (BEAKER) 4.9 K/ L 3.5-10.5 (test code = 775) RED BLOOD CELL COUNT (BEAKER) 3.45 M/ L 3.93-5.22 L (test code = 761) HEMOGLOBIN (BEAKER) (test code = 9.8 GM/DL 11.2-15.7 L 410) HEMATOCRIT (BEAKER) (test code = 30.9 % 34.1-44.9 L 411) MEAN CORPUSCULAR VOLUME (BEAKER) 89.6 fL 79.4-94.8 (test code = 753) MEAN CORPUSCULAR HEMOGLOBIN 28.4 pg 25.6-32.2 (BEAKER) (test code = 751) MEAN CORPUSCULAR HEMOGLOBIN CONC 31.7 GM/DL 32.2-35.5 L (BEAKER) (test code = 752) RED CELL DISTRIBUTION WIDTH 14.6 % 11.7-14.4 H (BEAKER) (test code = 412) PLATELET COUNT (BEAKER) (test 587 K/CU MM 150-450 H code = 756) MEAN PLATELET VOLUME (BEAKER) 8.6 fL 9.4-12.3 L (test code = 754) NUCLEATED RED BLOOD CELLS 0 /100 WBC 0-0 (BEAKER) (test code = 413) [id number] 06:42:02 Test Item Value Reference Range Interpretation Comments PHOSPHORUS (BEAKER) 3.9 mg/dL 2.3-4.7 Specimen slightly (test code = 604) hemolyzed Public Housing Manager ID - PIAYA LBASIC METABOLIC [id number] 06:42:02 Test Item Value Reference Range Interpretation Comments SODIUM (BEAKER) 131 meq/L 136-145 L (test code = 381) POTASSIUM (BEAKER) 4.1 meq/L 3.5-5.1 Specimen slightly (test code = 379) hemolyzed CHLORIDE (BEAKER) 98 meq/L 98-107 (test code = 382) CO2 (BEAKER) (test 25 meq/L 22-29 code = 355) BLOOD UREA NITROGEN 17 mg/dL 7-21 (BEAKER) (test code = 354) CREATININE (BEAKER) 0.61 mg/dL 0.57-1.25 Specimen slightly (test code = 358) hemolyzed GLUCOSE RANDOM 303 mg/dL 70-105 H (BEAKER) (test code = 652) CALCIUM (BEAKER) 8.7 mg/dL 8.4-10.2 (test code = 697) EGFR (BEAKER) (test 107 mL/min/1.73 ESTIM ATED GFR IS code = 1092) sq m NOT ACCURATE CREATININE CLEARANCE IN PREDICTING GLOMERULAR FILTRATION RATE . ESTIMATED GFR I S NOT APPLICABLE FOR DIALYSIS PATIEN TS. Public Housing Manager ID - PIAYA [id number] 06:42:01 Test Item Value Reference Range Interpretation Comments MAGNESIUM (BEAKER) 1.9 mg/dL 1.6-2.6 Specimen slightly (test code = 627) hemolyzed Public Housing Manager ID - PIAYA LPOCT-GLUCOSE [id number] 05:35:00 Test Item Value Reference Range Interpretation Comments POC-GLUCOSE METER 289 mg/dL 70-110 H : TESTED A T [facility] ([employer]) (test code = [facility], [facility]) [address]: Public Housing Manager/Techni chandni ID = [id number] for DO MINGUEZ, ZAYRA POCT-GLUCOSE [id number] 00:03:23 Test Item Value Reference Range Interpretation Comments POC-GLUCOSE METER 230 mg/dL 70-110 H : TESTED A T [facility] 6720 ([employer]) (test code = [facility], [facility]) 547[address]: Public Housing Manager/Techni chandni ID = [id number] for DO MINGUEZ, ZAYRA POCT-GLUCOSE [id number] 17:46:08 Test Item Value Reference Range Interpretation Comments POC-GLUCOSE METER 139 mg/dL 70-110 H : TESTED A T [facility] 6720 (BEAKER) (test code = [facility], [facility]8) 58385: Public Housing Manager/Techni chandni ID = [id number] for DE NNIS, HEIDE POCT-GLUCOSE [id number] 11:59:24 Test Item Value Reference Range Interpretation Comments POC-GLUCOSE METER 216 mg/dL 70-110 H : TESTED A T [facility] 6720 (BEAKER) (test code = [facility], [facility]) 78143: Public Housing Manager/Techni chandni ID = [id number] for DE NNIS, HEIDE POCT-GLUCOSE [id number] 05:55:28 Test Item Value Reference Range Interpretation Comments POC-GLUCOSE METER 200 mg/dL 70-110 H : TESTED A T [facility] 6720 (BEAKER) (test code = [place], 1538) [address]: Public Housing Manager/Techni chandni ID = [id number] for ALISSA MCWILLIAMS [id number] 05:47:23 Test Item Value Reference Range Interpretation Comments MAGNESIUM (BEAKER) (test code = 1.9 mg/dL 1.6-2.6 627) Public Housing Manager ID - KELSIE [id number] 05:47:23 Test Item Value Reference Range Interpretation Comments PHOSPHORUS (BEAKER) (test code = 3.6 mg/dL 2.3-4.7 604) Public Housing Manager ID - KELSIE MBASIC METABOLIC [id number] 05:47:22 Test Item Value Reference Range Interpretation Comments SODIUM (BEAKER) 135 meq/L 136-145 L (test code = 381) POTASSIUM (BEAKER) 3.7 meq/L 3.5-5.1 (test code = 379) CHLORIDE (BEAKER) 99 meq/L 98-107 (test code = 382) CO2 (BEAKER) (test 26 meq/L 22-29 code = 355) BLOOD UREA NITROGEN 18 mg/dL 7-21 (BEAKER) (test code = 354) CREATININE (BEAKER) 0.56 mg/dL 0.57-1.25 L (test code = 358) GLUCOSE RANDOM 185 mg/dL 70-105 H (BEAKER) (test code = 652) CALCIUM (BEAKER) 9.4 mg/dL 8.4-10.2 (test code = 697) EGFR (BEAKER) (test 118 mL/min/1.73 ESTIM ATED GFR IS code = 1092) sq m NOT ACCURATE CREATININE CLEARANCE IN PREDICTING GLOMERULAR FILTRATION RATE . ESTIMATED GFR I S NOT APPLICABLE FOR DIALYSIS PATIEN TS. Public Housing Manager ID - KELSIE MCBC W/PLT COUNT & AUTO [id number] 05:31:29 Test Item Value Reference Range Interpretation Comments WHITE BLOOD CELL COUNT (BEAKER) 6.1 K/ L 3.5-10.5 (test code = 775) RED BLOOD CELL COUNT (BEAKER) 3.64 M/ L 3.93-5.22 L (test code = 761) HEMOGLOBIN (BEAKER) (test code = 10.4 GM/DL 11.2-15.7 L 410) HEMATOCRIT (BEAKER) (test code = 32.9 % 34.1-44.9 L 411) MEAN CORPUSCULAR VOLUME (BEAKER) 90.4 fL 79.4-94.8 (test code = 753) MEAN CORPUSCULAR HEMOGLOBIN 28.6 pg 25.6-32.2 (BEAKER) (test code = 751) MEAN CORPUSCULAR HEMOGLOBIN CONC 31.6 GM/DL 32.2-35.5 L (BEAKER) (test code = 752) RED CELL DISTRIBUTION WIDTH 14.3 % 11.7-14.4 (BEAKER) (test code = 412) PLATELET COUNT (BEAKER) (test 595 K/CU MM 150-450 H code = 756) MEAN PLATELET VOLUME (BEAKER) 8.7 fL 9.4-12.3 L (test code = 754) NUCLEATED RED BLOOD CELLS 0 /100 WBC 0-0 (BEAKER) (test code = 413) NEUTROPHILS RELATIVE PERCENT 41 % (BEAKER) (test code = 429) LYMPHOCYTES RELATIVE PERCENT 39 % (BEAKER) (test code = 430) MONOCYTES RELATIVE PERCENT 10 % (BEAKER) (test code = 431) EOSINOPHILS RELATIVE PERCENT 5 % (BEAKER) (test code = 432) BASOPHILS RELATIVE PERCENT 1 % (BEAKER) (test code = 437) NEUTROPHILS ABSOLUTE COUNT 2.49 K/ L 1.56-6.13 (BEAKER) (test code = 670) LYMPHOCYTES ABSOLUTE COUNT 2.36 K/ L 1.18-3.74 (BEAKER) (test code = 414) MONOCYTES ABSOLUTE COUNT (BEAKER) 0.62 K/ L 0.24-0.36 H (test code = 415) EOSINOPHILS ABSOLUTE COUNT 0.33 K/ L 0.04-0.36 (BEAKER) (test code = 416) BASOPHILS ABSOLUTE COUNT (BEAKER) 0.07 K/ L 0.01-0.08 (test code = 417) IMMATURE GRANULOCYTES-RELATIVE 4 % 0-1 H PERCENT (BEAKER) (test code = 2801) POCT-GLUCOSE [id number] 23:47:55 Test Item Value Reference Range Interpretation Comments POC-GLUCOSE METER 276 mg/dL 70-110 H : TESTED A T [facility] 6720 (BEAKER) (test code = TUNDE Dic[facility], 1538) 86707: Public Housing Manager/Techni chandni ID = [id number] for ALISSA MCWILLIAMS POCT-GLUCOSE [id number] 22:06:31 Test Item Value Reference Range Interpretation Comments POC-GLUCOSE METER 271 mg/dL 70-110 H : TESTED A T [facility] 6720 ([facility]) (test code [facility], = 1538) 79976: Public Housing Manager/Techni chandni ID = [id number] for Loren Reid POCT-GLUCOSE [id number] 17:47:27 Test Item Value Reference Range Interpretation Comments POC-GLUCOSE METER 96 mg/dL 70-110 : TESTED A T [facility] 6720 ([facility]) (test code = TUNDE Dic[facility], 1538) 94173: Public Housing Manager/Techni chandni ID = [id number] for HEIDE ROSENTHAL RAD, CHEST, 1 VIEW, NON [id number] 13:05:00Reason for exam:->b/l opacitiesShould this be performed at the bedside?->Yes [facility] 1975 Sex: FFINAL REPORT Exam: RAD, CHEST, 1 VIEW, NON DEPTDate: 05/30/2021 1:04 PM Indication: Bilateral opacities Comparison: CXR of 05/27/2021 FINDINGS: Lines/Tubes:None. Lungs:The lungs are moderately inflated. Interval resolution of previously seen bilateral hazy airspace opacities. There is perihilar fullness and indistinctness of the pulmonary vasculature. Pleura:No pleural effusion. No pneumothorax. Heart/Mediastinum:The cardiomediastinal silhouette is normal in size and contour. Bones/Soft Tissues: No acute osseous injury. Abdomen: No free air below the diaphragm. IMPRESSION:Interval resolution of previously seen bilateral airspace opacities. Mild central pulmonary vascular congestion. Signed: Lee Stover MDReport Verified Date/Time: 05/30/2021 13:05:27 -GLUCOSE [id number] 11:57:49 Test Item Value Reference Range Interpretation Comments POC-GLUCOSE METER 255 mg/dL 70-110 H : TESTED A T [facility] 6720 (BEAKER) (test code = [facility], 1538) 89709: Public Housing Manager/Techni chandni ID = [id number] for HEIDE WILCOX MRSA [id number] 09:04:46 Test Item Value Reference Range Interpretation Comments CULTURE (BEAKER) (test code No MRSA isolated = 1095) POCT-GLUCOSE [id number] 07:02:46 Test Item Value Reference Range Interpretation Comments POC-GLUCOSE METER 310 mg/dL 70-110 H : TESTED A T [facility] 6720 (BEAKER) (test code = [facility] Re Pet [facility], 1538) 24901: Public Housing Manager/Techni chandni ID = [id number] for BI YO, JOSH (CELLAVISION MANUAL DIFF)2021-05-30 07:00:38 Test Item Value Reference Range Interpretation Comments NEUTROPHILS - REL 57 % (CELLAVISION)(BEAKER) (test code = 2816) LYMPHOCYTES - REL 31 % (CELLAVISION)(BEAKER) (test code = 2817) MONOCYTES - REL 5 % (CELLAVISION)(BEAKER) (test code = 2818) EOSINOPHILS - REL 4 % (CELLAVISION)(BEAKER) (test code = 2819) MYELOCYTES - REL 1 % 0-0 H (CELLAVISION)(BEAKER) (test code = 2822) BANDS - REL (CELLAVISION)(BEAKER) 1 % 0-10 (test code = 2826) ATYPICAL LYMPHOCYTES - REL 1 % 0-0 H (CELLAVISION)(BEAKER) (test code = 2829) NEUTROPHILS - ABS 2.85 K/ul 1.56-6.13 (CELLAVISION)(BEAKER) (test code = 2830) LYMPHOCYTES - ABS 1.55 K/ul 1.18-3.74 (CELLAVISION)(BEAKER) (test code = 2831) MONOCYTES - ABS 0.25 K/uL 0.24-0.36 (CELLAVISION)(BEAKER) (test code = 2832) EOSINOPHILS - ABS 0.20 K/uL 0.04-0.36 (CELLAVISION)(BEAKER) (test code = 2834) MYELOCYTES-ABS 0.05 K/uL 0.00-0.00 H (CELLAVISION)(BEAKER) (test code = 2837) BANDS - ABS (CELLAVISION)(BEAKER) 0.05 K/uL 0.00-0.80 (test code = 2840) ATYPICAL LYMPHOCYTES - ABS 0.05 K/uL 0.00-0.00 H (CELLAVISION)(BEAKER) (test code = 2858) TOTAL COUNTED (BEAKER) (test code = 100 1351) WBC MORPHOLOGY (BEAKER) (test code Normal = 487) PLT MORPHOLOGY (BEAKER) (test code Normal = 486) POLYCHROMATOPHILLIC RBCS(BEAKER) 3+ many (test code = 478) ANISOCYTOSIS (BEAKER) (test code = 1+ few 961) MACROCYTES (BEAKER) (test code = 1+ few 964) POIKILOCYTES (BEAKER) (test code = 1+ few 966) OVALOCYTES (BEAKER) (test code = 1+ few 477) ARTIFACT (CELLAVISION)(BEAKER) Present (test code = 3432) PLATELET CONCENTRATION Adequate (CELLAVISION)(BEAKER) (test code = 3438) Public Housing Manager ID - Amish comments: Slide comments:CBC W/PLT COUNT & AUTO [id number] 07:00:37 Test Item Value Reference Range Interpretation Comments WHITE BLOOD CELL COUNT (BEAKER) 5.0 K/ L 3.5-10.5 (test code = 775) RED BLOOD CELL COUNT (BEAKER) 3.44 M/ L 3.93-5.22 L (test code = 761) HEMOGLOBIN (BEAKER) (test code = 9.8 GM/DL 11.2-15.7 L 410) HEMATOCRIT (BEAKER) (test code = 30.8 % 34.1-44.9 L 411) MEAN CORPUSCULAR VOLUME (BEAKER) 89.5 fL 79.4-94.8 (test code = 753) MEAN CORPUSCULAR HEMOGLOBIN 28.5 pg 25.6-32.2 (BEAKER) (test code = 751) MEAN CORPUSCULAR HEMOGLOBIN CONC 31.8 GM/DL 32.2-35.5 L (BEAKER) (test code = 752) RED CELL DISTRIBUTION WIDTH 14.3 % 11.7-14.4 (BEAKER) (test code = 412) PLATELET COUNT (BEAKER) (test 420 K/CU MM 150-450 code = 756) MEAN PLATELET VOLUME (BEAKER) 8.7 fL 9.4-12.3 L (test code = 754) NUCLEATED RED BLOOD CELLS 0 /100 WBC 0-0 (BEAKER) (test code = 413) [id number] 06:48:57 Test Item Value Reference Range Interpretation Comments PHOSPHORUS (BEAKER) (test code = 3.7 mg/dL 2.3-4.7 604) Public Housing Manager ID - JHONATHAN WBASIC METABOLIC [id number] 06:48:56 Test Item Value Reference Range Interpretation Comments SODIUM (BEAKER) 135 meq/L 136-145 L (test code = 381) POTASSIUM (BEAKER) 3.9 meq/L 3.5-5.1 (test code = 379) CHLORIDE (BEAKER) 100 meq/L 98-107 (test code = 382) CO2 (BEAKER) (test 25 meq/L 22-29 code = 355) BLOOD UREA NITROGEN 14 mg/dL 7-21 (BEAKER) (test code = 354) CREATININE (BEAKER) 0.56 mg/dL 0.57-1.25 L (test code = 358) GLUCOSE RANDOM 257 mg/dL 70-105 H (BEAKER) (test code = 652) CALCIUM (BEAKER) 9.0 mg/dL 8.4-10.2 (test code = 697) EGFR (BEAKER) (test 118 mL/min/1.73 ESTIM ATED GFR IS code = 1092) sq m NOT ACCURATE CREATININE CLEARANCE IN PREDICTING GLOMERULAR FILTRATION RATE . ESTIMATED GFR I S NOT APPLICABLE FOR DIALYSIS PATIEN TS. Public Housing Manager ID - JHONATHAN [id number] 06:48:56 Test Item Value Reference Range Interpretation Comments MAGNESIUM (BEAKER) (test code = 1.9 mg/dL 1.6-2.6 627) Public Housing Manager ID - JHONATHAN WPOCT-GLUCOSE [id number] 02:59:01 Test Item Value Reference Range Interpretation Comments POC-GLUCOSE METER 231 mg/dL 70-110 H : TESTED A T [facility] 6720 (BEAKER) (test code = [facility], 1538) 48547: Public Housing Manager/Techni chandni ID = [id number] for ZAYRA JIN BLOOD [id number] 00:00:36 Test Item Value Reference Range Interpretation Comments CULTURE (BEAKER) (test No growth in 5 days code = 1095) BLOOD [id number] 00:00:35 Test Item Value Reference Range Interpretation Comments CULTURE (BEAKER) (test No growth in 5 days code = 1095) POCT-GLUCOSE [id number] 23:41:06 Test Item Value Reference Range Interpretation Comments POC-GLUCOSE METER 256 mg/dL 70-110 H : TESTED A T [facility] 6720 (BEAKER) (test code = [facility], 1538) 35085: Public Housing Manager/Techni chandni ID = [id number] for ZAYRA JIN POCT-GLUCOSE [id number] 17:35:18 Test Item Value Reference Range Interpretation Comments POC-GLUCOSE METER 187 mg/dL 70-110 H : TESTED A T [facility] 6720 (BEAKER) (test code [facility], = 1538) 37249: Public Housing Manager/Techni chandni ID = [id number] for Mark nova (contract)Adria [id number] 15:12:14 Test Item Value Reference Range Interpretation Comments PROCALCITONIN (BEAKER) (test code = < ng/mL <0.05 3036) SEPSIS RISK (ng/mL)Low: 0.05-0.50Intermediate: 0.51-2.00High: >=2.01POCT-GLUCOSE [id number] 13:38:57 Test Item Value Reference Range Interpretation Comments POC-GLUCOSE METER 317 mg/dL 70-110 H : TESTED A T [facility] 6720 (BEAKER) (test code [facility], = 1538) 30870: Public Housing Manager/Techni chandni ID = [id number] for Mark nova (zelalem)Adria BLOOD GAS, [id number] 06:04:25 Test Item Value Reference Range Interpretation Comments PH VENOUS (BEAKER) (test code = 7.45 7.32-7.42 H 701) PCO2 VENOUS (BEAKER) (test code = 40 mm Hg 41-51 L 755) PO2 VENOUS (BEAKER) (test code = 50 mm Hg 25-40 H 702) O2 SATURATION VENOUS (BEAKER) 86.7 % 40.0-70.0 H (test code = 703) HCO3 VENOUS (BEAKER) (test code = 27 mmol/L 21-29 705) BASE EXCESS VENOUS (BEAKER) (test 3.0 mmol/L -2.0-3.0 code = 704) PATIENT TEMPERATURE (BEAKER) (test 37.0 code = 1818) POCT-GLUCOSE [id number] 06:04:18 Test Item Value Reference Range Interpretation Comments POC-GLUCOSE METER 294 mg/dL 70-110 H : TESTED A T [facility] 6720 (BEAKER) (test code = TUN[facility] Dic[facility], 1538) 48830: Public Housing Manager/Techni chandni ID = [id number] for Al i, Katie CBC W/PLT COUNT & AUTO [id number] 05:44:01 Test Item Value Reference Range Interpretation Comments WHITE BLOOD CELL COUNT (BEAKER) 6.2 K/ L 3.5-10.5 (test code = 775) RED BLOOD CELL COUNT (BEAKER) 3.76 M/ L 3.93-5.22 L (test code = 761) HEMOGLOBIN (BEAKER) (test code = 10.8 GM/DL 11.2-15.7 L 410) HEMATOCRIT (BEAKER) (test code = 34.4 % 34.1-44.9 411) MEAN CORPUSCULAR VOLUME (BEAKER) 91.5 fL 79.4-94.8 (test code = 753) MEAN CORPUSCULAR HEMOGLOBIN 28.7 pg 25.6-32.2 (BEAKER) (test code = 751) MEAN CORPUSCULAR HEMOGLOBIN CONC 31.4 GM/DL 32.2-35.5 L (BEAKER) (test code = 752) RED CELL DISTRIBUTION WIDTH 14.1 % 11.7-14.4 (BEAKER) (test code = 412) PLATELET COUNT (BEAKER) (test 393 K/CU MM 150-450 code = 756) MEAN PLATELET VOLUME (BEAKER) 9.1 fL 9.4-12.3 L (test code = 754) NUCLEATED RED BLOOD CELLS 0 /100 WBC 0-0 (BEAKER) (test code = 413) NEUTROPHILS RELATIVE PERCENT 57 % (BEAKER) (test code = 429) LYMPHOCYTES RELATIVE PERCENT 27 % (BEAKER) (test code = 430) MONOCYTES RELATIVE PERCENT 4 % (BEAKER) (test code = 431) EOSINOPHILS RELATIVE PERCENT 8 % (BEAKER) (test code = 432) BASOPHILS RELATIVE PERCENT 1 % (BEAKER) (test code = 437) NEUTROPHILS ABSOLUTE COUNT 3.52 K/ L 1.56-6.13 (BEAKER) (test code = 670) LYMPHOCYTES ABSOLUTE COUNT 1.67 K/ L 1.18-3.74 (BEAKER) (test code = 414) MONOCYTES ABSOLUTE COUNT (BEAKER) 0.22 K/ L 0.24-0.36 L (test code = 415) EOSINOPHILS ABSOLUTE COUNT 0.51 K/ L 0.04-0.36 H (BEAKER) (test code = 416) BASOPHILS ABSOLUTE COUNT (BEAKER) 0.05 K/ L 0.01-0.08 (test code = 417) IMMATURE GRANULOCYTES-RELATIVE 3 % 0-1 H PERCENT (BEAKER) (test code = 2801) HEPATIC FUNCTION [id number] 05:37:15 Test Item Value Reference Range Interpretation Comments TOTAL PROTEIN (BEAKER) (test code = 5.9 gm/dL 6.0-8.3 L 770) ALBUMIN (BEAKER) (test code = 1145) 2.8 g/dL 3.5-5.0 L BILIRUBIN TOTAL (BEAKER) (test code 0.2 mg/dL 0.2-1.2 = 377) BILIRUBIN DIRECT (BEAKER) (test 0.2 mg/dL 0.1-0.5 code = 706) ALKALINE PHOSPHATASE (BEAKER) (test 76 U/L 40-150 code = 346) AST (SGOT) (BEAKER) (test code = 20 U/L 5-34 353) ALT (SGPT) (BEAKER) (test code = 13 U/L 6-55 347) Public Housing Manager ID Roslyn RING [id number] 05:37:14 Test Item Value Reference Range Interpretation Comments MAGNESIUM (BEAKER) (test code = 1.9 mg/dL 1.6-2.6 627) Public Housing Manager ID Roslyn RING [id number] 05:37:14 Test Item Value Reference Range Interpretation Comments PHOSPHORUS (BEAKER) (test code = 3.0 mg/dL 2.3-4.7 604) Public Housing Manager ID Roslyn RING WBASIC METABOLIC [id number] 05:37:13 Test Item Value Reference Range Interpretation Comments SODIUM (BEAKER) 136 meq/L 136-145 (test code = 381) POTASSIUM (BEAKER) 3.9 meq/L 3.5-5.1 (test code = 379) CHLORIDE (BEAKER) 101 meq/L 98-107 (test code = 382) CO2 (BEAKER) (test 26 meq/L 22-29 code = 355) BLOOD UREA NITROGEN 12 mg/dL 7-21 (BEAKER) (test code = 354) CREATININE (BEAKER) 0.60 mg/dL 0.57-1.25 (test code = 358) GLUCOSE RANDOM 326 mg/dL 70-105 H (BEAKER) (test code = 652) CALCIUM (BEAKER) 8.9 mg/dL 8.4-10.2 (test code = 697) EGFR (BEAKER) (test 109 mL/min/1.73 ESTIM ATED GFR IS code = 1092) sq m NOT ACCURATE CREATININE CLEARANCE IN PREDICTING GLOMERULAR FILTRATION RATE . ESTIMATED GFR I S NOT APPLICABLE FOR DIALYSIS PATIEN TS. Public Housing Manager ID Roslyn RING WPOCT-GLUCOSE [id number] 00:00:08 Test Item Value Reference Range Interpretation Comments POC-GLUCOSE METER 262 mg/dL 70-110 H : TESTED A T [facility] 6720 (BEAKER) (test code = [place], 1538) [id number]: Public Housing Manager/Techni chandni ID = [id number] for FABIO GARDUNO POCT-GLUCOSE [id number] 21:56:59 Test Item Value Reference Range Interpretation Comments POC-GLUCOSE METER 257 mg/dL 70-110 H : TESTED A [facility] 67[address] (YOHANA) (test code = [place], 1538) [address]: Public Housing Manager/Techni chandni ID = [id number] for Katie Joshua i SARS-COV2/RT-PCR ([facility])2021-05-28 19:46:36 Test Item Value Reference Range Interpretation Comments SARS-COV2/RT-PCR (test code = Negative Negative [id number]) Negative result for this test determines that SARS-CoV-2 RNA was not present in the specimen above the Limit of Detection (LOD). However, Negative results do not preclude SARS-CoV-2 infection and should not be used as the sole basis for treatment or patient management decisions. Negative results must be combined with clinical observations, patient history, and epidemiological information. A false negative result may occur if a specimen is improperly collected, transported, or handled. A false negative result should be considered if patient's recent exposures or clinical presentation indicate that COVID-19 (SARS-CoV-2) is likely and diagnostic tests for other causes of illness are negative. Re-testing should be considered in cases of suspected false negatives.The limit of detection for this assay is 100 copies/mL.This SARS-CoV-2 test is a real-time RT_PCR test intended for the qualitative detection of nucleic acid from SARS-CoV-2 in a nasopharyngeal swab specimen collected from individuals suspected of COVID-19 by their healthcare provider.This test has not been Food and Drug Administration (FDA) cleared or approved. This is a modified version of an approved Emergency Use Authorization (EUA) and is in the process of review by the FDA. Once authorized by the FDA, the issued EUA will be e ffective until the declaration that circumstances exist justifying the authorization of the emergency use of in vitro diagnostic tests for detection and/or diagnosis of COVID-19 is terminated under Section 564(b)(2) of the Act or the EUA is revoked under Section 564(g) of the Act.Testing was performedusing the May SARS-CoV-2 assay.Fact Sheet for Healthcare Providers:https://www.[employer]/sarah/RT SARS-CoV-2 HCP Fact Sheet 51- 155274.pdfFact Sheet for Healthcare Patients:[email or web address]://[email or web address].[employer]/[email or web address]/RT SARS-CoV-2 Patient Fact Sheet EN [id number].pdfPOCT-GLUCOSE [id number] 11:54:03 Test Item Value Reference Range Interpretation Comments POC-GLUCOSE METER 218 mg/dL 70-110 H : TESTED A T [facility] 6720 (BEAKER) (test code = [facility], 1538) [id number]: Public Housing Manager/Techni chandni ID = [id number] for Leena Alford VANCOMYCIN LEVEL, [id number] 11:38:07 Test Item Value Reference Range Interpretation Comments VANCOMYCIN RANDOM (BEAKER) (test 12.7 ug/mL code = 523) Reference Range: No NormalsOperator ID - JSVIRUS [id number] 09:00:17 Test Item Value Reference Range Interpretation Comments CULTURE (BEAKER) (test code = See comment 1095) See scanned reportPOCT-GLUCOSE [id number] 06:45:08 Test Item Value Reference Range Interpretation Comments POC-GLUCOSE METER 247 mg/dL 70-110 H : TESTED A T [facility] 6720 (BEAKER) (test code = [facility], 1538) [address]: Public Housing Manager/Techni chandni ID = [id number] for FABIO GARDUNO HEPATIC FUNCTION [id number] 04:35:16 Test Item Value Reference Range Interpretation Comments TOTAL PROTEIN (BEAKER) (test code = 5.8 gm/dL 6.0-8.3 L 770) ALBUMIN (BEAKER) (test code = 1145) 2.9 g/dL 3.5-5.0 L BILIRUBIN TOTAL (BEAKER) (test code 0.2 mg/dL 0.2-1.2 = 377) BILIRUBIN DIRECT (BEAKER) (test 0.2 mg/dL 0.1-0.5 code = 706) ALKALINE PHOSPHATASE (BEAKER) (test 77 U/L 40-150 code = 346) AST (SGOT) (BEAKER) (test code = 28 U/L 5-34 353) ALT (SGPT) (BEAKER) (test code = 13 U/L 6-55 347) Public Housing Manager ID - JHONATHAN [id number] 04:35:15 Test Item Value Reference Range Interpretation Comments MAGNESIUM (BEAKER) (test code = 1.7 mg/dL 1.6-2.6 627) Public Housing Manager ID Roslyn RING [id number] 04:35:15 Test Item Value Reference Range Interpretation Comments PHOSPHORUS (BEAKER) (test code = 2.7 mg/dL 2.3-4.7 604) Public Housing Manager ID Roslyn RING WBASIC METABOLIC [id number] 04:35:14 Test Item Value Reference Range Interpretation Comments SODIUM (BEAKER) 138 meq/L 136-145 (test code = 381) POTASSIUM (BEAKER) 3.9 meq/L 3.5-5.1 (test code = 379) CHLORIDE (BEAKER) 105 meq/L 98-107 (test code = 382) CO2 (BEAKER) (test 25 meq/L 22-29 code = 355) BLOOD UREA NITROGEN 15 mg/dL 7-21 (BEAKER) (test code = 354) CREATININE (BEAKER) 0.51 mg/dL 0.57-1.25 L (test code = 358) GLUCOSE RANDOM 172 mg/dL 70-105 H (BEAKER) (test code = 652) CALCIUM (BEAKER) 8.9 mg/dL 8.4-10.2 (test code = 697) EGFR (BEAKER) (test 131 mL/min/1.73 ESTIM ATED GFR IS code = 1092) sq m NOT ACCURATE CREATININE CLEARANCE IN PREDICTING GLOMERULAR FILTRATION RATE . ESTIMATED GFR I S NOT APPLICABLE FOR DIALYSIS PATIEN TS. Public Housing Manager ID Roslyn RING WCBC W/PLT COUNT & AUTO [id number] 03:58:46 Test Item Value Reference Range Interpretation Comments WHITE BLOOD CELL COUNT (BEAKER) 9.1 K/ L 3.5-10.5 (test code = 775) RED BLOOD CELL COUNT (BEAKER) 3.17 M/ L 3.93-5.22 L (test code = 761) HEMOGLOBIN (BEAKER) (test code = 9.1 GM/DL 11.2-15.7 L 410) HEMATOCRIT (BEAKER) (test code = 29.7 % 34.1-44.9 L 411) MEAN CORPUSCULAR VOLUME (BEAKER) 93.7 fL 79.4-94.8 (test code = 753) MEAN CORPUSCULAR HEMOGLOBIN 28.7 pg 25.6-32.2 (BEAKER) (test code = 751) MEAN CORPUSCULAR HEMOGLOBIN CONC 30.6 GM/DL 32.2-35.5 L (BEAKER) (test code = 752) RED CELL DISTRIBUTION WIDTH 14.4 % 11.7-14.4 (BEAKER) (test code = 412) PLATELET COUNT (BEAKER) (test 346 K/CU MM 150-450 code = 756) MEAN PLATELET VOLUME (BEAKER) 8.9 fL 9.4-12.3 L (test code = 754) NUCLEATED RED BLOOD CELLS 0 /100 WBC 0-0 (BEAKER) (test code = 413) NEUTROPHILS RELATIVE PERCENT 75 % (BEAKER) (test code = 429) LYMPHOCYTES RELATIVE PERCENT 17 % (BEAKER) (test code = 430) MONOCYTES RELATIVE PERCENT 2 % (BEAKER) (test code = 431) EOSINOPHILS RELATIVE PERCENT 4 % (BEAKER) (test code = 432) BASOPHILS RELATIVE PERCENT 0 % (BEAKER) (test code = 437) NEUTROPHILS ABSOLUTE COUNT 6.81 K/ L 1.56-6.13 H (BEAKER) (test code = 670) LYMPHOCYTES ABSOLUTE COUNT 1.52 K/ L 1.18-3.74 (BEAKER) (test code = 414) MONOCYTES ABSOLUTE COUNT (BEAKER) 0.21 K/ L 0.24-0.36 L (test code = 415) EOSINOPHILS ABSOLUTE COUNT 0.40 K/ L 0.04-0.36 H (BEAKER) (test code = 416) BASOPHILS ABSOLUTE COUNT (BEAKER) 0.02 K/ L 0.01-0.08 (test code = 417) IMMATURE GRANULOCYTES-RELATIVE 1 % 0-1 PERCENT (BEAKER) (test code = 2801) BLOOD GAS, [id number] 03:49:47 Test Item Value Reference Range Interpretation Comments PH ARTERIAL (BEAKER) (test code = 7.47 7.35-7.45 H 383) PCO2 ARTERIAL (BEAKER) (test code 40 mm Hg 35-45 = 384) PO2 ARTERIAL (BEAKER) (test code = 209 mm Hg 80-90 H 385) O2 SATURATION ARTERIAL (BEAKER) 99.5 % 96.0-97.0 H (test code = 386) HCO3 ARTERIAL (BEAKER) (test code 28 mmol/L 21-29 = 388) BASE EXCESS ARTERIAL (BEAKER) 3.8 mmol/L -2.0-3.0 H (test code = 387) PATIENT TEMPERATURE (BEAKER) (test 38.0 code = 1818) FIO2 (BEAKER) (test code = 1819) 100.0 POCT-GLUCOSE [id number] 00:06:19 Test Item Value Reference Range Interpretation Comments POC-GLUCOSE METER 106 mg/dL 70-110 : TESTED A T [facility] 6720 (BEAKER) (test code = [facility], 1538) [address]: Public Housing Manager/Techni chandni ID = [id number] for FABIO GARDUNO [id number] 18:40:48 Test Item Value Reference Range Interpretation Comments PROCALCITONIN (BEAKER) (test code 0.11 ng/mL <0.05 H = 3036) SEPSIS RISK (ng/mL)Low: 0.05-0.50Intermediate: 0.51-2.00High: >=2.01B-TYPE NATRIURETIC FACTOR (BNP)[id number] 18:10:28 Test Item Value Reference Range Interpretation Comments B-TYPE NATRIURETIC PEPTIDE (BEAKER) 86 pg/mL 0-100 (test code = 700) Public Housing Manager ID - KELSIE MHIGH SENSITIVITY TROPONIN [id number] 18:10:07 Test Item Value Reference Range Interpretation Comments HIGH SENSITIVITY 5 pg/ml See_Comment [Automated message] TROPONIN I (test code = The system which 3971806) generated this result transmitted ref erence range: <=17. Th e reference range was not used to interpr et this result as normal/abnormal . Public Housing Manager ID - KELSIE MThe DAIRY MANAGEMENT SPECIALIST STAT High Sensitivity Troponin-I results should be used in conjunction with other diagnostic information such as ECG, clinical observations and information, and patient symptoms to aid in the diagnosis of ME.LACTIC ACID, [id number] 18:00:03 Test Item Value Reference Range Interpretation Comments LACTATE BLOOD VENOUS (2) (BEAKER) 0.88 mmol/L 0.50-2.20 (test code = 2872) Public Housing Manager ID - KELSIE [id number] 17:47:04 Test Item Value Reference Range Interpretation Comments D-DIMER QUANTITATIVE (BEAKER) 1.50 MG/L FEU <0.50 H (test code = 671) Intended Use: The D-Dimer Assay can be used to aid in the diagnosis of Deep Vein Thrombosis (DVT) and Pulmonary Embolism Disease (PED).In patients with low pre- test probability, various studies concerning STA Liatest D-dimer test have reported that with a cutoff value of 0.50 MG/L FEU, the Negative Predictive Value (NPV) regarding the exclusion of thrombosis is within 95-100% range.POCT- GLUCOSE [id number] 17:20:50 Test Item Value Reference Range Interpretation Comments POC-GLUCOSE METER 179 mg/dL 70-110 H : [facility] (BEAKER) (test code [place], = 1538) [address]: Public Housing Manager/Techni chandni ID = [id number] for Sharda Johnson, Gene sis [id number] 16:56:55 Test Item Value Reference Range Interpretation Comments MAGNESIUM (BEAKER) (test code = 1.8 mg/dL 1.6-2.6 627) Public Housing Manager ID - KELSIE [id number] 16:56:55 Test Item Value Reference Range Interpretation Comments PHOSPHORUS (BEAKER) (test code = 2.5 mg/dL 2.3-4.7 604) Public Housing Manager ID - KELSIE MBASIC METABOLIC [id number] 16:56:54 Test Item Value Reference Range Interpretation Comments SODIUM (BEAKER) 145 meq/L 136-145 (test code = 381) POTASSIUM (BEAKER) 3.5 meq/L 3.5-5.1 (test code = 379) CHLORIDE (BEAKER) 108 meq/L 98-107 H (test code = 382) CO2 (BEAKER) (test 28 meq/L 22-29 code = 355) BLOOD UREA NITROGEN 20 mg/dL 7-21 (BEAKER) (test code = 354) CREATININE (BEAKER) 0.55 mg/dL 0.57-1.25 L (test code = 358) GLUCOSE RANDOM 167 mg/dL 70-105 H (BEAKER) (test code = 652) CALCIUM (BEAKER) 8.8 mg/dL 8.4-10.2 (test code = 697) EGFR (BEAKER) (test 120 mL/min/1.73 ESTIM ATED GFR IS code = 1092) sq m NOT ACCURATE CREATININE CLEARANCE IN PREDICTING GLOMERULAR FILTRATION RATE . ESTIMATED GFR I S NOT APPLICABLE FOR DIALYSIS PATIEN TS. Public Housing Manager ID - KELSIE MPOCT-GLUCOSE [id number] 11:49:12 Test Item Value Reference Range Interpretation Comments POC-GLUCOSE METER 137 mg/dL 70-110 H : TESTED A T [facility] 6720 (BEAKER) (test code [facility], = 1538) [address]: Public Housing Manager/Techni chandni ID = [id number] for Sharda Johnson, Gene sis VANCOMYCIN LEVEL, [id number] 07:02:15 Test Item Value Reference Range Interpretation Comments VANCOMYCIN TROUGH (BEAKER) (test 15.4 ug/mL 10.0-20.0 code = 522) Public Housing Manager ID - KELSIE MPOCT-GLUCOSE [id number] 06:16:20 Test Item Value Reference Range Interpretation Comments POC-GLUCOSE METER 110 mg/dL 70-110 : TESTED A T [facility] 6720 ([employer]) (test code = T[facility], 1538) [address]: Public Housing Manager/Techni chandni ID = [id number] for ALISSA MCWILLIAMS RAD, CHEST, 1 VIEW, NON [id number] 06:01:00Reason for exam:->shortness of breathShould this be performed at the bedside?->Yes [facility] 1975 Sex: FFINAL REPORT RAD, CHEST, 1 VIEW, NON DEPT INDICATION: shortness of breath COMPARISON: Prior day's exam FINDINGS: Portable frontal view of the chest. IMPRESSION: Support Lines: None Lungs and pleura: Basilar pulmonary opacities are increased. No significant pleural effusion. No pneumothorax.Heart and mediastinum: Stable contours. Additional findings: None. Signed: Anup Lopez MDReport Verified Date/Time: 05/27/2021 06:01:18 [id number] 05:55:38 Test Item Value Reference Range Interpretation Comments MAGNESIUM (BEAKER) (test code = 1.9 mg/dL 1.6-2.6 627) Public Housing Manager ID - KELSIE [id number] 05:55:38 Test Item Value Reference Range Interpretation Comments PHOSPHORUS (BEAKER) (test code = 2.2 mg/dL 2.3-4.7 L 604) Public Housing Manager ID - KELSIE MBASIC METABOLIC [id number] 05:55:37 Test Item Value Reference Range Interpretation Comments SODIUM (BEAKER) 145 meq/L 136-145 (test code = 381) POTASSIUM (BEAKER) 2.9 meq/L 3.5-5.1 L (test code = 379) CHLORIDE (BEAKER) 111 meq/L 98-107 H (test code = 382) CO2 (BEAKER) (test 25 meq/L 22-29 code = 355) BLOOD UREA NITROGEN 22 mg/dL 7-21 H (BEAKER) (test code = 354) CREATININE (BEAKER) 0.52 mg/dL 0.57-1.25 L (test code = 358) GLUCOSE RANDOM 97 mg/dL 70-105 (BEAKER) (test code = 652) CALCIUM (BEAKER) 9.3 mg/dL 8.4-10.2 (test code = 697) EGFR (BEAKER) (test 128 mL/min/1.73 ESTIM ATED GFR IS code = 1092) sq m NOT ACCURATE CREATININE CLEARANCE IN PREDICTING GLOMERULAR FILTRATION RATE . ESTIMATED GFR I S NOT APPLICABLE FOR DIALYSIS PATIEN TS. Public Housing Manager ID - KELSIE MLACTIC ACID, [id number] 05:46:51 Test Item Value Reference Range Interpretation Comments LACTATE BLOOD VENOUS (2) (BEAKER) 1.11 mmol/L 0.50-2.20 (test code = 2872) Public Housing Manager ID - KELSIE MCBC W/PLT COUNT & AUTO [id number] 05:28:46 Test Item Value Reference Range Interpretation Comments WHITE BLOOD CELL COUNT (BEAKER) 13.7 K/ L 3.5-10.5 H (test code = 775) RED BLOOD CELL COUNT (BEAKER) 3.37 M/ L 3.93-5.22 L (test code = 761) HEMOGLOBIN (BEAKER) (test code = 9.8 GM/DL 11.2-15.7 L 410) HEMATOCRIT (BEAKER) (test code = 31.7 % 34.1-44.9 L 411) MEAN CORPUSCULAR VOLUME (BEAKER) 94.1 fL 79.4-94.8 (test code = 753) MEAN CORPUSCULAR HEMOGLOBIN 29.1 pg 25.6-32.2 (BEAKER) (test code = 751) MEAN CORPUSCULAR HEMOGLOBIN CONC 30.9 GM/DL 32.2-35.5 L (BEAKER) (test code = 752) RED CELL DISTRIBUTION WIDTH 14.3 % 11.7-14.4 (BEAKER) (test code = 412) PLATELET COUNT (BEAKER) (test 395 K/CU MM 150-450 code = 756) MEAN PLATELET VOLUME (BEAKER) 9.1 fL 9.4-12.3 L (test code = 754) NUCLEATED RED BLOOD CELLS 0 /100 WBC 0-0 (BEAKER) (test code = 413) NEUTROPHILS RELATIVE PERCENT 86 % (BEAKER) (test code = 429) LYMPHOCYTES RELATIVE PERCENT 10 % (BEAKER) (test code = 430) MONOCYTES RELATIVE PERCENT 3 % (BEAKER) (test code = 431) EOSINOPHILS RELATIVE PERCENT 0 % (BEAKER) (test code = 432) BASOPHILS RELATIVE PERCENT 0 % (BEAKER) (test code = 437) NEUTROPHILS ABSOLUTE COUNT 11.73 K/ L 1.56-6.13 H (BEAKER) (test code = 670) LYMPHOCYTES ABSOLUTE COUNT 1.38 K/ L 1.18-3.74 (BEAKER) (test code = 414) MONOCYTES ABSOLUTE COUNT (BEAKER) 0.44 K/ L 0.24-0.36 H (test code = 415) EOSINOPHILS ABSOLUTE COUNT 0.04 K/ L 0.04-0.36 (BEAKER) (test code = 416) BASOPHILS ABSOLUTE COUNT (BEAKER) 0.02 K/ L 0.01-0.08 (test code = 417) IMMATURE GRANULOCYTES-RELATIVE 1 % 0-1 PERCENT (BEAKER) (test code = 2801) [id number] 05:18:30 Test Item Value Reference Range Interpretation Comments POC-HEMATOCRIT 27 % 36-45 L : Public Housing Manager/Te trudiian ID = (BEAKER) (test code = 438762 for ALEIDA BECERRA 185) [id number] 05:18:30 Test Item Value Reference Range Interpretation Comments POC-GLUCOSE (BEAKER) 101 mg/dL 70-110 : TESTE D AT [facility] 67 (test code = 1855) BARRIEEVELYNE Tuan [facility], [address]: Public Housing Manager/Techni chandni ID = [id number] for ALEIDA DUARTE [id number] 05:18:29 Test Item Value Reference Range Interpretation Comments POC-POTASSIUM 2.7 meq/L 3.6-5.5 L : TESTED AT [place] [address] ([facility]) (test code [facility], = 1540) [address]: Public Housing Manager/Techni chandni ID = [id number] for ALEIDA DUARTE [id number] 05:18:29 Test Item Value Reference Range Interpretation Comments POC-HEMOGLOBIN 9.2 g/dL 12.0-15.0 L : TESTED AT [place] [address] (BEAKER) (test code = TUNDE Dic[facility], 1856) [address]: Public Housing Manager/Techni chandni ID = [id number] for ALEIDA DUARTE POCT-BLOOD GASES, [id number] 05:18:28 Test Item Value Reference Range Interpretation Comments TEMP, CELSIUS-POC 97.8 (BEAKER) (test code = 1834) FIO2-POC (BEAKER) 100 (test code = 1835) PH, ARTERIAL-POC 7.514 7.350-7.450 H (BEAKER) (test code = 1836) PCO2, ARTERIAL-POC 35.7 mm Hg 35.0-45.0 If pO2 is >180, pCO2 may (BEAKER) (test code be posit ively biased = 1837) PO2, ARTERIAL-POC 68.0 mm Hg 80.0-90.0 L (BEAKER) (test code = 1838) SO2, ARTERIAL-POC 95.0 % 96.0-97.0 L (BEAKER) (test code = 1839) HCO3, ARTERIAL-POC 28.9 meq/L 21.0-29.0 ([facility]) (test code = 1840) BASE EXCESS, 6.0 meq/L -2.0-3.0 H : TESTED AT [facility] 6720 ARTERIAL-POC [facility], ([facility]) (test code [address]: = 1841) Public Housing Manager/Techni chandni ID = [id number] for ALEIDA DUARTE [id number] 05:18:28 Test Item Value Reference Range Interpretation Comments POC-SODIUM ([facility]) 146 meq/L 135-148 : TESTED AT [place] [address] (test code = 1542) [facility], [address]: Public Housing Manager/Techni chandni ID = [id number] for ALEIDA DUARTE POCT-GLUCOSE [id number] 00:23:49 Test Item Value Reference Range Interpretation Comments POC-GLUCOSE METER 293 mg/dL 70-110 H : TESTED A T [facility] 6720 ([facility]) (test code = [facility], 1538) [address]: Public Housing Manager/Techni chandni ID = [id number] for ERNA ANGELES, JOSH POCT-GLUCOSE [id number] 17:42:26 Test Item Value Reference Range Interpretation Comments POC-GLUCOSE METER 355 mg/dL 70-110 H : TESTED A T [facility] 6720 ([facility]) (test code = [facility], 1538) [address]: Public Housing Manager/Techni chandni ID = [id number] for RADHA PINEDO POCT-GLUCOSE [id number] 12:00:34 Test Item Value Reference Range Interpretation Comments POC-GLUCOSE METER 299 mg/dL 70-110 H : TESTED A T [facility] 6720 ([facility]) (test code = [facility], 1538) [address]: Public Housing Manager/Techni chandni ID = [id number] for RADHA PINEDO RAD, CHEST, 1 VIEW, NON [id number] 09:41:00Reason for exam:- >pneumoniaShould this be performed at the bedside?->Yes [facility] : 1975 Sex: FFINAL REPORT EXAMINATION: RAD, CHEST, 1 VIEW, NON DEPT. INDICATION: 45-year-old female with pneumonia. COMPARISON: Chest radiograph dated 05/24/2021. FINDINGS:The cardiomediastinal silhouette appears normal. Pulmonary altagracia and vasculature are within normal limits. Moderate bilateral diffuse hazy opacities, similar to prior examination. No pleural effusion. No pneumothorax.No acute osseous abnormality. Visualized soft tissues are unremarkable. IMPRESSION:Moderate bilateral diffuse hazy opacities, similar to prior examination. Signed: Enoc Hidalgo MDReport Verified Date/Time: 05/26/2021 09:41:11 Reading Location: [address] Ortho Consult Reading Room Electronicallysigned by: ENOC HIDALGO MD on 05/26/2021 09:41 AMPOCT- GLUCOSE [id number] 09:04:44 Test Item Value Reference Range Interpretation Comments POC-GLUCOSE METER 226 mg/dL 70-110 H : TESTED A T [place] [address] (YOHANA) (test code = [facility], 1538) [address]: Public Housing Manager/Techni chandni ID = [id number] for RAMÍREZSAROJ FERGUSON RADHA POCT-GLUCOSE [id number] 06:22:36 Test Item Value Reference Range Interpretation Comments POC-GLUCOSE METER 294 mg/dL 70-110 H : Notified RN/MD: (YOHANA) (test code = TESTED AT [facility] 6720 1538) [facility], [address]: Public Housing Manager/Techni chandni ID = [id number] for Kip Funk BASIC METABOLIC [id number] 05:28:08 Test Item Value Reference Range Interpretation Comments SODIUM (BEAKER) 143 meq/L 136-145 (test code = 381) POTASSIUM (BEAKER) 3.9 meq/L 3.5-5.1 Specimen slightly (test code = 379) hemolyzed CHLORIDE (BEAKER) 107 meq/L 98-107 (test code = 382) CO2 (BEAKER) (test 26 meq/L 22-29 code = 355) BLOOD UREA NITROGEN 24 mg/dL 7-21 H (BEAKER) (test code = 354) CREATININE (BEAKER) 0.70 mg/dL 0.57-1.25 Specimen slightly (test code = 358) hemolyzed GLUCOSE RANDOM 305 mg/dL 70-105 H (BEAKER) (test code = 652) CALCIUM (BEAKER) 9.5 mg/dL 8.4-10.2 (test code = 697) EGFR (BEAKER) (test 91 mL/min/1.73 ESTIMA CHANDLER GFR IS code = 1092) sq m NOT ACCURATE CREATININE CLEARANCE IN PREDICTING GLOMERULAR FILTRATION RATE . ESTIMATED GFR I S NOT APPLICABLE FOR DIALYSIS PATIEN TS. Public Housing Manager ID - [id number] 05:28:07 Test Item Value Reference Range Interpretation Comments MAGNESIUM (BEAKER) 2.2 mg/dL 1.6-2.6 Specimen slightly (test code = 627) hemolyzed Public Housing Manager ID - [id number] 05:28:07 Test Item Value Reference Range Interpretation Comments PHOSPHORUS (BEAKER) 3.6 mg/dL 2.3-4.7 Specimen slightly (test code = 604) hemolyzed Public Housing Manager ID - DBCBC W/PLT COUNT & AUTO [id number] 05:24:28 Test Item Value Reference Range Interpretation Comments WHITE BLOOD CELL COUNT (BEAKER) 12.1 K/ L 3.5-10.5 H (test code = 775) RED BLOOD CELL COUNT (BEAKER) 3.18 M/ L 3.93-5.22 L (test code = 761) HEMOGLOBIN (BEAKER) (test code = 9.3 GM/DL 11.2-15.7 L 410) HEMATOCRIT (BEAKER) (test code = 29.6 % 34.1-44.9 L 411) MEAN CORPUSCULAR VOLUME (BEAKER) 93.1 fL 79.4-94.8 (test code = 753) MEAN CORPUSCULAR HEMOGLOBIN 29.2 pg 25.6-32.2 (BEAKER) (test code = 751) MEAN CORPUSCULAR HEMOGLOBIN CONC 31.4 GM/DL 32.2-35.5 L (BEAKER) (test code = 752) RED CELL DISTRIBUTION WIDTH 14.6 % 11.7-14.4 H (BEAKER) (test code = 412) PLATELET COUNT (BEAKER) (test 359 K/CU MM 150-450 code = 756) MEAN PLATELET VOLUME (BEAKER) 9.5 fL 9.4-12.3 (test code = 754) NUCLEATED RED BLOOD CELLS 0 /100 WBC 0-0 (BEAKER) (test code = 413) NEUTROPHILS RELATIVE PERCENT 79 % (BEAKER) (test code = 429) LYMPHOCYTES RELATIVE PERCENT 15 % (BEAKER) (test code = 430) MONOCYTES RELATIVE PERCENT 4 % (BEAKER) (test code = 431) EOSINOPHILS RELATIVE PERCENT 0 % (BEAKER) (test code = 432) BASOPHILS RELATIVE PERCENT 0 % (BEAKER) (test code = 437) NEUTROPHILS ABSOLUTE COUNT 9.59 K/ L 1.56-6.13 H (BEAKER) (test code = 670) LYMPHOCYTES ABSOLUTE COUNT 1.86 K/ L 1.18-3.74 (BEAKER) (test code = 414) MONOCYTES ABSOLUTE COUNT (BEAKER) 0.52 K/ L 0.24-0.36 H (test code = 415) EOSINOPHILS ABSOLUTE COUNT 0.01 K/ L 0.04-0.36 L (BEAKER) (test code = 416) BASOPHILS ABSOLUTE COUNT (BEAKER) 0.01 K/ L 0.01-0.08 (test code = 417) IMMATURE GRANULOCYTES-RELATIVE 1 % 0-1 PERCENT (BEAKER) (test code = 2801) VANCOMYCIN LEVEL, [id number] 02:47:02 Test Item Value Reference Range Interpretation Comments VANCOMYCIN TROUGH (BEAKER) (test 9.5 ug/mL 10.0-20.0 L code = 522) Public Housing Manager ID - KELSIE MPOCT-GLUCOSE [id number] 00:24:11 Test Item Value Reference Range Interpretation Comments POC-GLUCOSE METER 298 mg/dL 70-110 H : TESTED A T [facility] 6720 (BEAKER) (test code = [facility], 1538) [address]: Public Housing Manager/Techni chandni ID = [id number] for Sa carver, Jefando POCT-GLUCOSE [id number] 20:52:36 Test Item Value Reference Range Interpretation Comments POC-GLUCOSE METER 325 mg/dL 70-110 H : TESTED A T [facility] 6720 (BEAKER) (test code = [facility], 153) [id number]: Public Housing Manager/Techni chandni ID = [id number] for Sa carver, Jefando POCT-GLUCOSE [id number] 18:20:33 Test Item Value Reference Range Interpretation Comments POC-GLUCOSE METER 370 mg/dL 70-110 H : TESTED A T [facility] 6720 (BEAKER) (test code [facility], = 1538) 29786: Public Housing Manager/Techni chandni ID = [id number] for Fernandonoble Johnson, Gene sis POCT-GLUCOSE [id number] 15:21:31 Test Item Value Reference Range Interpretation Comments POC-GLUCOSE METER 122 mg/dL 70-110 H : TESTED A T [facility] 6720 (BEAKER) (test code = [facility], 153) [id number]: Public Housing Manager/Techni chandni ID = [id number] for Peter nds, Kristal POCT-GLUCOSE [id number] 13:58:47 Test Item Value Reference Range Interpretation Comments POC-GLUCOSE METER 75 mg/dL 70-110 : TESTED A T [facility] 6720 (BEAKER) (test code = [facility], 153) 76004: Public Housing Manager/Techni chandni ID = [id number] for [place] s, Kristal POCT-GLUCOSE [id number] 13:02:02 Test Item Value Reference Range Interpretation Comments POC-GLUCOSE METER 80 mg/dL 70-110 : TESTED A T [facility] 6720 (BEAKER) (test code = [facility], 1538) 34116: Public Housing Manager/Techni chandni ID = [id number] for HEIDE ROSENTHAL POCT-GLUCOSE [id number] 11:43:46 Test Item Value Reference Range Interpretation Comments POC-GLUCOSE METER 161 mg/dL 70-110 H : TESTED A T [facility] 6720 (BEAKER) (test code = [facility], 1538) 91788: Public Housing Manager/Techni chandni ID = [id number] for DE NNIS, HEIDE POCT-GLUCOSE [id number] 10:55:48 Test Item Value Reference Range Interpretation Comments POC-GLUCOSE METER 184 mg/dL 70-110 H : TESTED A T [facility] 6720 (BEAKER) (test code = [facility], 1538) 81658: Public Housing Manager/Techni chandni ID = [id number] for DE NNIS, HEIDE POCT-GLUCOSE [id number] 10:11:09 Test Item Value Reference Range Interpretation Comments POC-GLUCOSE METER 186 mg/dL 70-110 H : TESTED A T [facility] 6720 (BEAKER) (test code = [facility], [facility]8) 71892: Public Housing Manager/Techni chandni ID = [id number] for DE NNIS, HEIDE POCT-GLUCOSE [id number] 09:23:41 Test Item Value Reference Range Interpretation Comments POC-GLUCOSE METER 184 mg/dL 70-110 H : TESTED A T [facility] 6720 (BEAKER) (test code = [facility], [facility]8) 66065: Public Housing Manager/Techni chandni ID = [id number] for DE NNIS, HEIDE POCT-GLUCOSE [id number] 08:09:43 Test Item Value Reference Range Interpretation Comments POC-GLUCOSE METER 174 mg/dL 70-110 H : TESTED A T [facility] 6720 (BEAKER) (test code = [facility], [facility]8) 30570: Public Housing Manager/Techni chandni ID = [id number] for DE NNIS, HEIDE POCT-GLUCOSE [id number] 06:36:10 Test Item Value Reference Range Interpretation Comments POC-GLUCOSE METER 147 mg/dL 70-110 H : TESTED A T [facility] 6720 (BEAKER) (test code = [facility], 1538) 91514: Public Housing Manager/Techni chandni ID = [id number] for DO MINGUEZ ZAYRA POCT-GLUCOSE [id number] 05:46:14 Test Item Value Reference Range Interpretation Comments POC-GLUCOSE METER 122 mg/dL 70-110 H : TESTED A T [facility] 6720 (BEAKER) (test code = [facility], 1538) 68541: Public Housing Manager/Techni chandni ID = [id number] for MS JOHN JOHNSTON POCT-GLUCOSE [id number] 05:17:40 Test Item Value Reference Range Interpretation Comments POC-GLUCOSE METER 96 mg/dL 70-110 : TESTED A T [facility] 6720 (BEAKER) ([facility] 1538[facility] 74519: Public Housing Manager/Techni chandni ID = [id number] for Loren Reid [id number] 04:38:10 Test Item Value Reference Range Interpretation Comments PHOSPHORUS (BEAKER) 3.2 mg/dL 2.3-4.7 Specimen slightly (test code = 604) hemolyzed Public Housing Manager ID - MCKAYLA GBASIC METABOLIC [id number] 04:38:10 Test Item Value Reference Range Interpretation Comments SODIUM (BEAKER) 145 meq/L 136-145 (test code = 381) POTASSIUM (BEAKER) 3.9 meq/L 3.5-5.1 Specimen slightly (test code = 379) hemolyzed CHLORIDE (BEAKER) 110 meq/L 98-107 H (test code = 382) CO2 (BEAKER) (test 26 meq/L 22-29 code = 355) BLOOD UREA NITROGEN 24 mg/dL 7-21 H (BEAKER) (test code = 354) CREATININE (BEAKER) 0.58 mg/dL 0.57-1.25 Specimen slightly (test code = 358) hemolyzed GLUCOSE RANDOM 113 mg/dL 70-105 H (BEAKER) (test code = 652) CALCIUM (BEAKER) 9.5 mg/dL 8.4-10.2 (test code = 697) EGFR (BEAKER) (test 113 mL/min/1.73 ESTIM ATED GFR IS code = 1092) sq m NOT ACCURATE CREATININE CLEARANCE IN PREDICTING GLOMERULAR FILTRATION RATE . ESTIMATED GFR I S NOT APPLICABLE FOR DIALYSIS PATIEN TS. Public Housing Manager ID - MCKAYLA [id number] 04:38:09 Test Item Value Reference Range Interpretation Comments MAGNESIUM (BEAKER) 1.9 mg/dL 1.6-2.6 Specimen slightly (test code = 627) hemolyzed Public Housing Manager ID - MCKAYLA GVALPROIC ACID LEVEL, [id number] 04:33:27 Test Item Value Reference Range Interpretation Comments VALPROIC ACID TOTAL (BEAKER) (test 75 ug/mL 50-100 code = 924) Therapeutic range for some clinical conditions may be >100 ug/mLOperator ID - MCKAYLA GCBC W/PLT COUNT & AUTO [id number] 04:18:20 Test Item Value Reference Range Interpretation Comments WHITE BLOOD CELL COUNT (BEAKER) 14.9 K/ L 3.5-10.5 H (test code = 775) RED BLOOD CELL COUNT (BEAKER) 3.20 M/ L 3.93-5.22 L (test code = 761) HEMOGLOBIN (BEAKER) (test code = 9.4 GM/DL 11.2-15.7 L 410) HEMATOCRIT (BEAKER) (test code = 30.0 % 34.1-44.9 L 411) MEAN CORPUSCULAR VOLUME (BEAKER) 93.8 fL 79.4-94.8 (test code = 753) MEAN CORPUSCULAR HEMOGLOBIN 29.4 pg 25.6-32.2 (BEAKER) (test code = 751) MEAN CORPUSCULAR HEMOGLOBIN CONC 31.3 GM/DL 32.2-35.5 L (BEAKER) (test code = 752) RED CELL DISTRIBUTION WIDTH 14.7 % 11.7-14.4 H (BEAKER) (test code = 412) PLATELET COUNT (BEAKER) (test 381 K/CU MM 150-450 code = 756) MEAN PLATELET VOLUME (BEAKER) 9.4 fL 9.4-12.3 (test code = 754) NUCLEATED RED BLOOD CELLS 0 /100 WBC 0-0 (BEAKER) (test code = 413) NEUTROPHILS RELATIVE PERCENT 89 % (BEAKER) (test code = 429) LYMPHOCYTES RELATIVE PERCENT 6 % (BEAKER) (test code = 430) MONOCYTES RELATIVE PERCENT 4 % (BEAKER) (test code = 431) EOSINOPHILS RELATIVE PERCENT 0 % (BEAKER) (test code = 432) BASOPHILS RELATIVE PERCENT 0 % (BEAKER) (test code = 437) NEUTROPHILS ABSOLUTE COUNT 13.30 K/ L 1.56-6.13 H (BEAKER) (test code = 670) LYMPHOCYTES ABSOLUTE COUNT 0.92 K/ L 1.18-3.74 L (BEAKER) (test code = 414) MONOCYTES ABSOLUTE COUNT (BEAKER) 0.52 K/ L 0.24-0.36 H (test code = 415) EOSINOPHILS ABSOLUTE COUNT 0.00 K/ L 0.04-0.36 L (BEAKER) (test code = 416) BASOPHILS ABSOLUTE COUNT (AKER) 0.01 K/ L 0.01-0.08 (test code = 417) IMMATURE GRANULOCYTES-RELATIVE 1 % 0-1 PERCENT (BEAKER) (test code = 2801) POCT-GLUCOSE [id number] 04:10:08 Test Item Value Reference Range Interpretation Comments POC-GLUCOSE METER 104 mg/dL 70-110 : TESTED A T [facility] 6720 (BEAKER) (test code = [facility], 1538) 95175: Public Housing Manager/Techni chandni ID = [id number] for DO MINGUEZ, ZAYRA POCT-GLUCOSE [id number] 03:21:17 Test Item Value Reference Range Interpretation Comments POC-GLUCOSE METER 124 mg/dL 70-110 H : TESTED A T [facility] 6720 (BEAKER) (test code [facility], = 1538) 55823: Public Housing Manager/Techni chandni ID = [id number] for Doeb bler, Loren POCT-GLUCOSE [id number] 02:16:15 Test Item Value Reference Range Interpretation Comments POC-GLUCOSE METER 159 mg/dL 70-110 H : TESTED A T [facility] 6720 (BEAKER) (test code = [facility], 1538) 37234: Public Housing Manager/Techni chandni ID = [id number] for DO MINGUCRYSTAL, ZAYRA POCT-GLUCOSE [id number] 01:21:18 Test Item Value Reference Range Interpretation Comments POC-GLUCOSE METER 201 mg/dL 70-110 H : TESTED A T [facility] 6720 (BEAKER) (test code [facility], = 1538) 34391: Public Housing Manager/Techni chandni ID = [id number] for Doeb bler, Loren POCT-GLUCOSE [id number] 00:06:28 Test Item Value Reference Range Interpretation Comments POC-GLUCOSE METER 232 mg/dL 70-110 H : TESTED A T [facility] 6720 (BEAKER) (test code = [facility], 1538) 73302: Public Housing Manager/Techni chandni ID = [id number] for DO MINGUEZ, ZAYRA C-REACTIVE [id number] 23:42:47 Test Item Value Reference Range Interpretation Comments C-REACTIVE PROTEIN (YOHANA) (test 19.18 mg/dL 0.00-0.50 H code = 676) Public Housing Manager ID - DBPOCT-GLUCOSE [id number] 23:11:21 Test Item Value Reference Range Interpretation Comments POC-GLUCOSE METER 200 mg/dL 70-110 H : TESTED A T [facility] 6720 (YOHANA) (test code = [facility], 1538) 90039: Public Housing Manager/Techni chandni ID = [id number] for DO ZAYRA CONNELL POCT-GLUCOSE [id number] 22:09:49 Test Item Value Reference Range Interpretation Comments POC-GLUCOSE METER 175 mg/dL 70-110 H : TESTED A T [facility] 6720 (YOHANA) (test code = [facility], 1538) 15288: Public Housing Manager/Techni chandni ID = [id number] for DO ZAYRA CONNELL POCT-GLUCOSE [id number] 21:15:33 Test Item Value Reference Range Interpretation Comments POC-GLUCOSE METER 205 mg/dL 70-110 H : TESTED A T [facility] 6720 (YOHANA) (test code [facility], = 1538) 04743: Public Housing Manager/Techni chandni ID = [id number] for Indu blerLoren RAD, CHEST, 1 VIEW, NON [id number] 20:40:00Reason for exam:->r/o aspirationShould this be performed at the bedside?->Yes [facility] 1975 Sex: FFINAL REPORT INDICATION: r/o aspiration COMPARISON: 05/15/2021 TECHNIQUE:Single frontal view of the chest. FINDINGS: Lungs and pleura: Increased bilateral airspace opacitiesconcerning for multifocal pneumonia versus multifocal edema. No effusion.Heart and mediastinum: Normal heart size. Unremarkable mediastinal contours.Osseous structures: No acute abnormality.Other: None. IMPRESSION: Increased bilateral airspace opacities concerning for multifocal pneumonia versus multifocal edema Signed: Tere Plascencia MDReport Verified Date/Time: 05/24/2021 20:40:37 POCT-GLUCOSE METER 2021-05-24 20:10:08 Test Item Value Reference Range Interpretation Comments POC-GLUCOSE METER 220 mg/dL 70-110 H : TESTED A T [facility] 6720 (BEAKER) (test code = [facility], 1538) 19284: Public Housing Manager/Techni chandni ID = [id number] for ZAYRA JIN POCT-GLUCOSE [id number] 19:09:07 Test Item Value Reference Range Interpretation Comments POC-GLUCOSE METER 135 mg/dL 70-110 H : TESTED A T [facility] 6720 (BEAKER) (test code [facility], = 1538) 52008: Public Housing Manager/Techni chandni ID = [id number] for Loren Reid POCT-GLUCOSE [id number] 18:15:20 Test Item Value Reference Range Interpretation Comments POC-GLUCOSE METER 87 mg/dL 70-110 : TESTED A T [facility] 6720 (BEAKER) (test code = [facility], 1538) 39933: Public Housing Manager/Techni chandni ID = [id number] for RAMÍREZ-MIKAEL PHYLLIS, RADHA POCT-GLUCOSE [id number] 17:10:54 Test Item Value Reference Range Interpretation Comments POC-GLUCOSE METER 113 mg/dL 70-110 H : TESTED A T [facility] 6720 (BEAKER) (test code = [facility], 1538) 56311: Public Housing Manager/Techni chandni ID = [id number] for RAMÍREZ-MIKAEL PHYLLIS, RADHA POCT-GLUCOSE [id number] 16:13:58 Test Item Value Reference Range Interpretation Comments POC-GLUCOSE METER 156 mg/dL 70-110 H : TESTED A T [facility] 6720 (BEAKER) (test code = [facility], 1538) 21032: Public Housing Manager/Techni chandni ID = [id number] for RAMÍREZ-MIKAEL PHYLLIS, RADHA POCT-GLUCOSE [id number] 15:10:20 Test Item Value Reference Range Interpretation Comments POC-GLUCOSE METER 159 mg/dL 70-110 H : TESTED A T [facility] 6720 (BEAKER) (test code = [facility], 1538) 34840: Public Housing Manager/Techni chandni ID = [id number] for OK TONYA, HSELDON POCT-GLUCOSE [id number] 14:20:22 Test Item Value Reference Range Interpretation Comments POC-GLUCOSE METER 156 mg/dL 70-110 H : TESTED A T [facility] 6720 (BEAKER) (test code = [facility], 1538) 36719: Public Housing Manager/Techni chandni ID = [id number] for OK TONYA, SHELDON POCT-GLUCOSE [id number] 13:03:31 Test Item Value Reference Range Interpretation Comments POC-GLUCOSE METER 122 mg/dL 70-110 H : TESTED A T [facility] 6720 (BEAKER) (test code = [facility], 1538) 70565: Public Housing Manager/Techni chandni ID = [id number] for OK TONYA, SHELDON POCT-GLUCOSE [id number] 12:11:18 Test Item Value Reference Range Interpretation Comments POC-GLUCOSE METER 156 mg/dL 70-110 H : TESTED A T [facility] 6720 (BEAKER) (test code = [facility], 1538) 82474: Public Housing Manager/Techni chandni ID = [id number] for RAMÍREZ-MIKAEL PHYLLIS, RADHA POCT-GLUCOSE [id number] 11:16:19 Test Item Value Reference Range Interpretation Comments POC-GLUCOSE METER 158 mg/dL 70-110 H : TESTED A T [facility] 6720 (BEAKER) (test code = [facility], 1538) 55802: Public Housing Manager/Techni chandni ID = [id number] for RAMÍREZ-MIKAEL PHYLILS, RADHA POCT-GLUCOSE [id number] 10:04:45 Test Item Value Reference Range Interpretation Comments POC-GLUCOSE METER 159 mg/dL 70-110 H : TESTED A T [facility] 6720 (BEAKER) (test code = [facility], 1538) 92560: Public Housing Manager/Techni chandni ID = [id number] for OK TONYA, SHELDON POCT-GLUCOSE [id number] 08:43:59 Test Item Value Reference Range Interpretation Comments POC-GLUCOSE METER 103 mg/dL 70-110 : TESTED A T [facility] 6720 (BEAKER) (test code = [facility], 1538) 85695: Public Housing Manager/Techni chandni ID = [id number] for RADHA PINEDO POCT-GLUCOSE [id number] 07:42:10 Test Item Value Reference Range Interpretation Comments POC-GLUCOSE METER 90 mg/dL 70-110 : TESTED A T [facility] 6720 (BEAKER) (test code = [facility], 1538) 57702: Public Housing Manager/Techni chandni ID = [id number] for OKEK E, SHELDON POCT-GLUCOSE [id number] 07:03:25 Test Item Value Reference Range Interpretation Comments POC-GLUCOSE METER 100 mg/dL 70-110 : TESTED A T [facility] 6720 (BEAKER) (test code [facility], = 1538) 34688: Public Housing Manager/Techni chandni ID = [id number] for Loren Reid [id number] 06:04:02 Test Item Value Reference Range Interpretation Comments MAGNESIUM (BEAKER) (test code = 1.8 mg/dL 1.6-2.6 627) Public Housing Manager ID - LETY [id number] 06:04:02 Test Item Value Reference Range Interpretation Comments PHOSPHORUS (BEAKER) (test code = 3.3 mg/dL 2.3-4.7 604) Public Housing Manager ID - PIDIOGENES LBASIC METABOLIC [id number] 06:04:01 Test Item Value Reference Range Interpretation Comments SODIUM (BEAKER) 146 meq/L 136-145 H (test code = 381) POTASSIUM (BEAKER) 3.1 meq/L 3.5-5.1 L (test code = 379) CHLORIDE (BEAKER) 106 meq/L 98-107 (test code = 382) CO2 (BEAKER) (test 28 meq/L 22-29 code = 355) BLOOD UREA NITROGEN 31 mg/dL 7-21 H (BEAKER) (test code = 354) CREATININE (BEAKER) 0.57 mg/dL 0.57-1.25 (test code = 358) GLUCOSE RANDOM 116 mg/dL 70-105 H (BEAKER) (test code = 652) CALCIUM (BEAKER) 9.9 mg/dL 8.4-10.2 (test code = 697) EGFR (BEAKER) (test 115 mL/min/1.73 ESTIM ATED GFR IS code = 1092) sq m NOT ACCURATE CREATININE CLEARANCE IN PREDICTING GLOMERULAR FILTRATION RATE . ESTIMATED GFR I S NOT APPLICABLE FOR DIALYSIS PATIEN TS. Public Housing Manager ID - PIAYA LPOCT-GLUCOSE [id number] 05:44:56 Test Item Value Reference Range Interpretation Comments POC-GLUCOSE METER 104 mg/dL 70-110 : TESTED A T [facility] 6720 (BEAKER) (test code [facility], = 1538) 45086: Public Housing Manager/Techni chandni ID = [id number] for Doeb bler, Loren CBC W/PLT COUNT & AUTO [id number] 05:32:31 Test Item Value Reference Range Interpretation Comments WHITE BLOOD CELL COUNT (BEAKER) 13.1 K/ L 3.5-10.5 H (test code = 775) RED BLOOD CELL COUNT (BEAKER) 3.78 M/ L 3.93-5.22 L (test code = 761) HEMOGLOBIN (BEAKER) (test code = 11.1 GM/DL 11.2-15.7 L 410) HEMATOCRIT (BEAKER) (test code = 35.2 % 34.1-44.9 411) MEAN CORPUSCULAR VOLUME (BEAKER) 93.1 fL 79.4-94.8 (test code = 753) MEAN CORPUSCULAR HEMOGLOBIN 29.4 pg 25.6-32.2 (BEAKER) (test code = 751) MEAN CORPUSCULAR HEMOGLOBIN CONC 31.5 GM/DL 32.2-35.5 L (BEAKER) (test code = 752) RED CELL DISTRIBUTION WIDTH 14.7 % 11.7-14.4 H (BEAKER) (test code = 412) PLATELET COUNT (BEAKER) (test 429 K/CU MM 150-450 code = 756) MEAN PLATELET VOLUME (BEAKER) 9.1 fL 9.4-12.3 L (test code = 754) NUCLEATED RED BLOOD CELLS 0 /100 WBC 0-0 (BEAKER) (test code = 413) NEUTROPHILS RELATIVE PERCENT 79 % (BEAKER) (test code = 429) LYMPHOCYTES RELATIVE PERCENT 15 % (BEAKER) (test code = 430) MONOCYTES RELATIVE PERCENT 6 % (BEAKER) (test code = 431) EOSINOPHILS RELATIVE PERCENT 0 % (BEAKER) (test code = 432) BASOPHILS RELATIVE PERCENT 0 % (BEAKER) (test code = 437) NEUTROPHILS ABSOLUTE COUNT 10.33 K/ L 1.56-6.13 H (BEAKER) (test code = 670) LYMPHOCYTES ABSOLUTE COUNT 1.98 K/ L 1.18-3.74 (BEAKER) (test code = 414) MONOCYTES ABSOLUTE COUNT (BEAKER) 0.73 K/ L 0.24-0.36 H (test code = 415) EOSINOPHILS ABSOLUTE COUNT 0.00 K/ L 0.04-0.36 L (BEAKER) (test code = 416) BASOPHILS ABSOLUTE COUNT (BEAKER) 0.02 K/ L 0.01-0.08 (test code = 417) IMMATURE GRANULOCYTES-RELATIVE 1 % 0-1 PERCENT (BEAKER) (test code = 2801) POCT-GLUCOSE [id number] 04:44:39 Test Item Value Reference Range Interpretation Comments POC-GLUCOSE METER 131 mg/dL 70-110 H : TESTED A T [facility] 6720 (BEAKER) (test code [facility], = 1538) 89053: Public Housing Manager/Techni chandni ID = [id number] for Doeb bler, Loren POCT-GLUCOSE [id number] 03:21:30 Test Item Value Reference Range Interpretation Comments POC-GLUCOSE METER 156 mg/dL 70-110 H : TESTED A T [facility] 6720 (BEAKER) (test code [facility], = 1538) 48781: Public Housing Manager/Techni chandni ID = [id number] for Doeb bler, Loren POCT-GLUCOSE [id number] 02:19:06 Test Item Value Reference Range Interpretation Comments POC-GLUCOSE METER 139 mg/dL 70-110 H : TESTED A T [facility] 6720 (BEAKER) (test code [facility], = 1538) 48554: Public Housing Manager/Techni chandni ID = [id number] for Doeb bler, Loren POCT-GLUCOSE [id number] 01:12:36 Test Item Value Reference Range Interpretation Comments POC-GLUCOSE METER 159 mg/dL 70-110 H : TESTED A T [facility] 6720 (BEAKER) (test code [facility], = 1538) 49692: Public Housing Manager/Techni chandni ID = [id number] for Doeb bler, Loren POCT-GLUCOSE [id number] 00:17:06 Test Item Value Reference Range Interpretation Comments POC-GLUCOSE METER 154 mg/dL 70-110 H : TESTED A T [facility] 6720 (BEAKER) (test code [facility], = 1538) 21405: Public Housing Manager/Techni chandni ID = [id number] for Doeb bler, Loren POCT-GLUCOSE [id number] 23:08:10 Test Item Value Reference Range Interpretation Comments POC-GLUCOSE METER 155 mg/dL 70-110 H : TESTED A T [facility] 6720 (BEAKER) (test code [facility], = 1538) 34746: Public Housing Manager/Techni chandni ID = [id number] for Doeb bler, Loren POCT-GLUCOSE [id number] 22:33:10 Test Item Value Reference Range Interpretation Comments POC-GLUCOSE METER 99 mg/dL 70-110 : TESTED A T [facility] 6720 (BEAKER) (test code [facility], = 1538) 73704: Public Housing Manager/Techni chandni ID = [id number] for Doeb bler, Loren POCT-GLUCOSE [id number] 22:07:11 Test Item Value Reference Range Interpretation Comments POC-GLUCOSE METER 86 mg/dL 70-110 : TESTED A T [facility] 6720 (BEAKER) (test code [facility], = 1538) 33875: Public Housing Manager/Techni chandni ID = [id number] for Doeb bler, Loren POCT-GLUCOSE [id number] 21:52:21 Test Item Value Reference Range Interpretation Comments POC-GLUCOSE METER 80 mg/dL 70-110 : TESTED A T [facility] 6720 (BEAKER) (test code [facility], = 1538) 64875: Public Housing Manager/Techni chandni ID = [id number] for Doeb bler, Loren POCT-GLUCOSE [id number] 20:43:50 Test Item Value Reference Range Interpretation Comments POC-GLUCOSE METER 139 mg/dL 70-110 H : TESTED A T [facility] 6720 (BEAKER) (test code = [facility], 153) 20036: Public Housing Manager/Techni chandni ID = [id number] for TAYE SALGUERO POCT-GLUCOSE [id number] 19:48:38 Test Item Value Reference Range Interpretation Comments POC-GLUCOSE METER 191 mg/dL 70-110 H : TESTED A T [facility] 6720 (BEAKER) (test code [facility], = 1538) 04944: Public Housing Manager/Techni chandni ID = [id number] for Dovandana bler, Loren POCT-GLUCOSE [id number] 18:48:03 Test Item Value Reference Range Interpretation Comments POC-GLUCOSE METER 222 mg/dL 70-110 H : TESTED A T [facility] 6720 (BEAKER) (test code = [facility], 153) 94876: Public Housing Manager/Techni chandni ID = [id number] for RAMÍREZ-MIKAEL PHYLLIS, RADHA POCT-GLUCOSE [id number] 17:33:15 Test Item Value Reference Range Interpretation Comments POC-GLUCOSE METER 233 mg/dL 70-110 H : TESTED A T [facility] 6720 (BEAKER) (test code = [facility], 153) 99045: Public Housing Manager/Techni chandni ID = [id number] for RAMÍREZ-MIKAEL PHYLLIS, RADHA POCT-GLUCOSE [id number] 16:44:49 Test Item Value Reference Range Interpretation Comments POC-GLUCOSE METER 247 mg/dL 70-110 H : TESTED A T [facility] 6720 (BEAKER) (test code = [facility], 1538) 93856: Public Housing Manager/Techni chandni ID = [id number] for OK TONYA, SHELDON POCT-GLUCOSE [id number] 15:32:47 Test Item Value Reference Range Interpretation Comments POC-GLUCOSE METER 242 mg/dL 70-110 H : TESTED A T [facility] 6720 (BEAKER) (test code = [facility], 1538) 12525: Public Housing Manager/Techni chandni ID = [id number] for RAMÍREZ-MIKAEL PHYLLIS, RADHA POCT-GLUCOSE [id number] 14:20:15 Test Item Value Reference Range Interpretation Comments POC-GLUCOSE METER 255 mg/dL 70-110 H : TESTED A T [facility] 6720 (BEAKER) (test code = [facility], [facility]8) 24691: Public Housing Manager/Techni chandni ID = [id number] for OK TONYA, SHELDON POCT-GLUCOSE [id number] 13:03:55 Test Item Value Reference Range Interpretation Comments POC-GLUCOSE METER 228 mg/dL 70-110 H : TESTED A T [facility] 6720 (BEAKER) (test code = [facility], [facility]8) 34415: Public Housing Manager/Techni chandni ID = [id number] for OK TONYA, SHELDON POCT-GLUCOSE [id number] 12:12:27 Test Item Value Reference Range Interpretation Comments POC-GLUCOSE METER 182 mg/dL 70-110 H : TESTED A T [facility] 6720 (BEAKER) (test code = [facility], [facility]) 97677: Public Housing Manager/Techni chandni ID = [id number] for OK TONYA, SHELDON POCT-GLUCOSE [id number] 11:10:30 Test Item Value Reference Range Interpretation Comments POC-GLUCOSE METER 175 mg/dL 70-110 H : TESTED A T [facility] 6720 (BEAKER) (test code = [facility], [facility]8) 65906: Public Housing Manager/Techni chandni ID = [id number] for RAMÍREZ-MIKAEL FERGUSON, RADHA POCT-GLUCOSE [id number] 10:11:53 Test Item Value Reference Range Interpretation Comments POC-GLUCOSE METER 131 mg/dL 70-110 H : TESTED A T [facility] 6720 (BEAKER) (test code = [facility], [facility]8) 86796: Public Housing Manager/Techni chandni ID = [id number] for OK TONYA, SHELDON POCT-GLUCOSE [id number] 08:39:08 Test Item Value Reference Range Interpretation Comments POC-GLUCOSE METER 115 mg/dL 70-110 H : TESTED A T [facility] 6720 (BEAKER) (test code = [facility], [facility]) 40209: Public Housing Manager/Techni chandni ID = [id number] for RAMÍREZ-MIKAEL PHYLLIS, RADHA POCT-GLUCOSE [id number] 07:57:25 Test Item Value Reference Range Interpretation Comments POC-GLUCOSE METER 158 mg/dL 70-110 H : TESTED A T [facility] 6720 (BEAKER) (test code = [facility], 1538) 28351: Public Housing Manager/Techni chandni ID = [id number] for RADHA PINEDO POCT-GLUCOSE [id number] 06:42:58 Test Item Value Reference Range Interpretation Comments POC-GLUCOSE METER 209 mg/dL 70-110 H : TESTED A T [facility] 6720 (BEAKER) ([facility] = 1538) 18100: Public Housing Manager/Techni chandni ID = [id number] for Loren Reid POCT-GLUCOSE [id number] 05:40:48 Test Item Value Reference Range Interpretation Comments POC-GLUCOSE METER 185 mg/dL 70-110 H : TESTED A T [facility] 6720 (BEAKER) (test code = [facility], 1538) 64164: Public Housing Manager/Techni chandni ID = [id number] for ZAYRA JIN CBC W/PLT COUNT & AUTO [id number] 05:37:35 Test Item Value Reference Range Interpretation Comments WHITE BLOOD CELL COUNT (BEAKER) 14.4 K/ L 3.5-10.5 H (test code = 775) RED BLOOD CELL COUNT (BEAKER) 3.35 M/ L 3.93-5.22 L (test code = 761) HEMOGLOBIN (BEAKER) (test code = 10.0 GM/DL 11.2-15.7 L 410) HEMATOCRIT (BEAKER) (test code = 30.7 % 34.1-44.9 L 411) MEAN CORPUSCULAR VOLUME (BEAKER) 91.6 fL 79.4-94.8 (test code = 753) MEAN CORPUSCULAR HEMOGLOBIN 29.9 pg 25.6-32.2 (BEAKER) (test code = 751) MEAN CORPUSCULAR HEMOGLOBIN CONC 32.6 GM/DL 32.2-35.5 (BEAKER) (test code = 752) RED CELL DISTRIBUTION WIDTH 14.6 % 11.7-14.4 H (BEAKER) (test code = 412) PLATELET COUNT (BEAKER) (test 456 K/CU MM 150-450 H code = 756) MEAN PLATELET VOLUME (BEAKER) 9.3 fL 9.4-12.3 L (test code = 754) NUCLEATED RED BLOOD CELLS 0 /100 WBC 0-0 (BEAKER) (test code = 413) NEUTROPHILS RELATIVE PERCENT 89 % (BEAKER) (test code = 429) LYMPHOCYTES RELATIVE PERCENT 6 % (BEAKER) (test code = 430) MONOCYTES RELATIVE PERCENT 5 % (BEAKER) (test code = 431) EOSINOPHILS RELATIVE PERCENT 0 % (BEAKER) (test code = 432) BASOPHILS RELATIVE PERCENT 0 % (BEAKER) (test code = 437) NEUTROPHILS ABSOLUTE COUNT 12.86 K/ L 1.56-6.13 H (BEAKER) (test code = 670) LYMPHOCYTES ABSOLUTE COUNT 0.82 K/ L 1.18-3.74 L (BEAKER) (test code = 414) MONOCYTES ABSOLUTE COUNT (BEAKER) 0.66 K/ L 0.24-0.36 H (test code = 415) EOSINOPHILS ABSOLUTE COUNT 0.00 K/ L 0.04-0.36 L (BEAKER) (test code = 416) BASOPHILS ABSOLUTE COUNT (BEAKER) 0.01 K/ L 0.01-0.08 (test code = 417) IMMATURE GRANULOCYTES-RELATIVE 1 % 0-1 PERCENT (BEAKER) (test code = 2801) BASIC METABOLIC [id number] 05:35:03 Test Item Value Reference Range Interpretation Comments SODIUM (BEAKER) 145 meq/L 136-145 (test code = 381) POTASSIUM (BEAKER) 4.0 meq/L 3.5-5.1 Specimen slightly (test code = 379) hemolyzed CHLORIDE (BEAKER) 108 meq/L 98-107 H (test code = 382) CO2 (BEAKER) (test 26 meq/L 22-29 code = 355) BLOOD UREA NITROGEN 29 mg/dL 7-21 H (BEAKER) (test code = 354) CREATININE (BEAKER) 0.61 mg/dL 0.57-1.25 Specimen slightly (test code = 358) hemolyzed GLUCOSE RANDOM 183 mg/dL 70-105 H (BEAKER) (test code = 652) CALCIUM (BEAKER) 9.9 mg/dL 8.4-10.2 (test code = 697) EGFR (BEAKER) (test 107 mL/min/1.73 ESTIM ATED GFR IS code = 1092) sq m NOT ACCURATE CREATININE CLEARANCE IN PREDICTING GLOMERULAR FILTRATION RATE . ESTIMATED GFR I S NOT APPLICABLE FOR DIALYSIS PATIEN TS. Public Housing Manager ID - KELSIE [id number] 05:35:02 Test Item Value Reference Range Interpretation Comments PHOSPHORUS (BEAKER) 3.5 mg/dL 2.3-4.7 Specimen slightly (test code = 604) hemolyzed Public Housing Manager ID - KELSIE [id number] 05:35:01 Test Item Value Reference Range Interpretation Comments MAGNESIUM (BEAKER) 1.9 mg/dL 1.6-2.6 Specimen slightly (test code = 627) hemolyzed Public Housing Manager ID - KELSIE MPOCT-GLUCOSE [id number] 04:44:08 Test Item Value Reference Range Interpretation Comments POC-GLUCOSE METER 165 mg/dL 70-110 H : TESTED A T [facility] 6720 (BEAKER) (test code [facility], = 1538) 06474: Public Housing Manager/Techni chandni ID = [id number] for Doeb bler, Loren POCT-GLUCOSE [id number] 03:45:31 Test Item Value Reference Range Interpretation Comments POC-GLUCOSE METER 171 mg/dL 70-110 H : TESTED A T [facility] 6720 (BEAKER) (test code [facility], = 1538) 70161: Public Housing Manager/Techni chandni ID = [id number] for Doeb bler, Loren POCT-GLUCOSE [id number] 02:22:00 Test Item Value Reference Range Interpretation Comments POC-GLUCOSE METER 251 mg/dL 70-110 H : TESTED A T [facility] 6720 (BEAKER) ([facility] = [facility], 1538) 62367: Public Housing Manager/Techni chandni ID = [id number] for DO MINGUEZ ZAYRA POCT-GLUCOSE [id number] 01:19:02 Test Item Value Reference Range Interpretation Comments POC-GLUCOSE METER 293 mg/dL 70-110 H : TESTED A T [facility] 6720 (BEAKER) (test code [facility], = 1538) 53918: Public Housing Manager/Techni chandni ID = [id number] for Doeb bler, Loren POCT-GLUCOSE [id number] 00:13:49 Test Item Value Reference Range Interpretation Comments POC-GLUCOSE METER 288 mg/dL 70-110 H : TESTED A T [facility] 6720 (BEAKER) (test code = [facility], 1538) 73820: Public Housing Manager/Techni chandni ID = [id number] for ZAYRA JIN POCT-GLUCOSE [id number] 23:22:05 Test Item Value Reference Range Interpretation Comments POC-GLUCOSE METER 299 mg/dL 70-110 H : TESTED A T [facility] 6720 (BEAKER) (test code [facility], = 1538) 61604: Public Housing Manager/Techni chandni ID = [id number] for Loren Reid POCT-GLUCOSE [id number] 22:11:55 Test Item Value Reference Range Interpretation Comments POC-GLUCOSE METER 364 mg/dL 70-110 H : TESTED A T [facility] 6720 (YOHANA) (test code = [facility], 1538) 96591: Public Housing Manager/Techni chandni ID = [id number] for ZAYRA JIN POCT-GLUCOSE [id number] 21:10:28 Test Item Value Reference Range Interpretation Comments POC-GLUCOSE METER 344 mg/dL 70-110 H : TESTED A T [facility] 6720 (BEAKER) (test code [facility], = 1538) 93919: Public Housing Manager/Techni chandni ID = [id number] for Loren Reid TISSUE [id number] 15:01:13Surgical Pathology Report Case: [id number] Authorizing Provider: Gordon Martinez MD Collected: 05/16/2021 08:40 AM Ordering Location: [address] Received: 05/16/2021 12:56 PM Cardiovascular Pathologist: Marvin Madrid MD Specimen: Biopsy, Gastric, bx random, r/o H-Pylori A. 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 PYLORI IS NEGATIVE Signing Pathologist Direct Phone Line: [phone] signed by Marvin Madrid MD on 05/22/2021 at 3:01 PMPreliminary result electronically signed by Marvin Madrid MD on 05/18/2021 at 8:45 PMPreliminary result electronically signed by Marvin Madrid MD on 05/17/2021 at 4:42 PMSome histologic features are suggestive of autoimmune gastritis. Clinical correlation with antiparietal and anti-intrinsic factor antibody is recommended.Intradepartmental consultation: Kayleigh Yip MD has seen the case and agrees with the diagnosis.[id number], 23955, 38031 H1Bivdhrbzt, DM1 c/b hx DKA, HTN, anxiety, depression, neuropathic pain, and obesity who was admitted 04/26/2021 after being found down, unresponsive with glucose in 20s, long hospital stay with persistent encephalopathy, GI consulted for PEG. GastricReceived in formalin labeled the patient's name, accession number and "gastric biopsy" are multiple peña soft tissue fragments measuring up to 0.2 cm in greatest dimension which are filtered and submitted in toto in A1.SAUNDRA Rangel, HT (ASCP)Performed.The interpretation of this case included the use of immunohistochemistry or special stains.Helicobacter- negative Chromogranin- positive, nodular and linear stain (ECL hyperplasia)Gastrin- positiveControl Slides Examined: In-house known positive controls were evaluated along with the test tissue. These control slides run alongside of the patients sample show appropriate staining. Internal positive and negative controls when available are evaluated Immunohistochemistry technicaltesting was performed at [facility], Pathology Laboratory where it was developed and its performance characteristics were determined. It has not been cleared or approved by the U.S. Food and Drug Administration. The FDA has determined that such clearance or approval is not necessary. The test is used for clinical purposes. It should not be regarded as investigational or for [facility]. This laboratory is certified under the Clinical Laboratory Improvement Amendments of 1988 (CLIA-88) as qualified to perform high complexity clinical laboratory testing.[facility], Department of Pathology, [address] [place] [address], [facility], [facility] of [facility], [address] [place] [address], [place] [address], [facility], [facility] of [facility]ology, [address] [place] [address], [place] [address], UQXK-GLUCOSE [id number] 12:04:21 Test Item Value Reference Range Interpretation Comments POC-GLUCOSE METER 238 mg/dL 70-110 H : TESTED A T [facility] 6720 (BEAKER) (test code [facility], = 1538) 90442: Public Housing Manager/Techni chandni ID = [id number] for Sharda Johnson, Gene sis SARS-COV2/RT-PCR ([facility])2021-05-22 10:40:26 Test Item Value Reference Range Interpretation Comments SARS-COV2/RT-PCR (test Negative Not Detected, Negative, code = 3592935) See external report for linked test SARS-COV-2 PERFORMING LAB [facility] (test code = 4825103) Negative result for this test determines that SARS-CoV-2 RNA was not present in the specimen above the Limit of Detection (LOD). However, Negative results do not preclude SARS-CoV-2 infection and should not be used as the sole basis for treatment or patient management decisions. Negative results mustbe combined with clinical observations, patient history, and epidemiological information. A false negative result may occur if a specimen is improperly collected, transported or handled. A false negative result should be considered if patient's recent exposures or clinical presentation indicate that COVID-19 (SARS-CoV-2) is likely and diagnostic tests for other causes of illness are negative. Re-testing should be considered in cases of suspected false negatives.The limit of detection for this assay is 800 copies/mL.This SARS CoV-2 test is a real-time RT-PCR test intended for the qualitative detection of nucleic acid from SARS-CoV-2 in a nasopharyngeal swab specimen collected from individuals susp ected of COVID-19 by their healthcare provider.This test has not been Food and Drug Administration (FDA) cleared or approved. This is a modified version of an approved Emergency Use Authorization (EUA) and is in the process of review by the FDA. Once authorized by the FDA, the issued EUA will be effective until the declaration that circumstances exist justifying the authorization of the emergency use of in vitro diagnostic tests for detection and/or diagnosis of COVID-19 is terminated under Section 564(b)(2) of the Act or the EUA is revoked under Section 564(g) of the Act.Fact Sheet for Healthcare Providers:https://www.[employer]/sites/default/files/product/documents/Fact_Xander sloanl_BI_Qxjwuvfdt_Veps_BLOL-BjO-6.pdfFact Sheet for Healthcare Patients:https://www.[employer]/sites/default/files/product/ documents/Ived_Pufdk_Rpabbdwo_Drng_WTVE-AzW-8.pdfPerforming Laboratory:[facility], [place] [id number] 06:07:23 Test Item Value Reference Range Interpretation Comments PHOSPHORUS (BEAKER) (test code = 4.0 mg/dL 2.3-4.7 604) Public Housing Manager ID Roslyn DAVIDSON [id number] 06:07:22 Test Item Value Reference Range Interpretation Comments MAGNESIUM (BEAKER) (test code = 1.9 mg/dL 1.6-2.6 627) Public Housing Manager ID Roslyn DAVIDSON LBASIC METABOLIC [id number] 06:07:21 Test Item Value Reference Range Interpretation Comments SODIUM (BEAKER) 145 meq/L 136-145 (test code = 381) POTASSIUM (BEAKER) 3.3 meq/L 3.5-5.1 L (test code = 379) CHLORIDE (BEAKER) 108 meq/L 98-107 H (test code = 382) CO2 (BEAKER) (test 26 meq/L 22-29 code = 355) BLOOD UREA NITROGEN 29 mg/dL 7-21 H (BEAKER) (test code = 354) CREATININE (BEAKER) 0.61 mg/dL 0.57-1.25 (test code = 358) GLUCOSE RANDOM 137 mg/dL 70-105 H (BEAKER) (test code = 652) CALCIUM (BEAKER) 10.1 mg/dL 8.4-10.2 (test code = 697) EGFR (BEAKER) (test 107 mL/min/1.73 ESTIM ATED GFR IS code = 1092) sq m NOT ACCURATE CREATININE CLEARANCE IN PREDICTING GLOMERULAR FILTRATION RATE . ESTIMATED GFR I S NOT APPLICABLE FOR DIALYSIS PATIEN TS. Public Housing Manager ID Roslyn DAVIDSON LPOCT-GLUCOSE [id number] 05:58:38 Test Item Value Reference Range Interpretation Comments POC-GLUCOSE METER 156 mg/dL 70-110 H : TESTED A T [facility] 6720 (BEAKER) (test code = [place], 1538) 828[address]: Public Housing Manager/Techni chandni ID = [id number] for JOHN PARRY CBC W/PLT COUNT & AUTO [id number] 05:28:10 Test Item Value Reference Range Interpretation Comments WHITE BLOOD CELL COUNT (BEAKER) 9.6 K/ L 3.5-10.5 (test code = 775) RED BLOOD CELL COUNT (BEAKER) 3.78 M/ L 3.93-5.22 L (test code = 761) HEMOGLOBIN (BEAKER) (test code = 11.0 GM/DL 11.2-15.7 L 410) HEMATOCRIT (BEAKER) (test code = 35.2 % 34.1-44.9 411) MEAN CORPUSCULAR VOLUME (BEAKER) 93.1 fL 79.4-94.8 (test code = 753) MEAN CORPUSCULAR HEMOGLOBIN 29.1 pg 25.6-32.2 (BEAKER) (test code = 751) MEAN CORPUSCULAR HEMOGLOBIN CONC 31.3 GM/DL 32.2-35.5 L (BEAKER) (test code = 752) RED CELL DISTRIBUTION WIDTH 14.6 % 11.7-14.4 H (BEAKER) (test code = 412) PLATELET COUNT (BEAKER) (test 491 K/CU MM 150-450 H code = 756) MEAN PLATELET VOLUME (BEAKER) 8.9 fL 9.4-12.3 L (test code = 754) NUCLEATED RED BLOOD CELLS 0 /100 WBC 0-0 (BEAKER) (test code = 413) NEUTROPHILS RELATIVE PERCENT 74 % (BEAKER) (test code = 429) LYMPHOCYTES RELATIVE PERCENT 16 % (BEAKER) (test code = 430) MONOCYTES RELATIVE PERCENT 8 % (BEAKER) (test code = 431) EOSINOPHILS RELATIVE PERCENT 1 % (BEAKER) (test code = 432) BASOPHILS RELATIVE PERCENT 0 % (BEAKER) (test code = 437) NEUTROPHILS ABSOLUTE COUNT 7.07 K/ L 1.56-6.13 H (BEAKER) (test code = 670) LYMPHOCYTES ABSOLUTE COUNT 1.56 K/ L 1.18-3.74 (BEAKER) (test code = 414) MONOCYTES ABSOLUTE COUNT (BEAKER) 0.78 K/ L 0.24-0.36 H (test code = 415) EOSINOPHILS ABSOLUTE COUNT 0.13 K/ L 0.04-0.36 (BEAKER) (test code = 416) BASOPHILS ABSOLUTE COUNT (BEAKER) 0.02 K/ L 0.01-0.08 (test code = 417) IMMATURE GRANULOCYTES-RELATIVE 1 % 0-1 PERCENT (BEAKER) (test code = 2801) POCT-GLUCOSE [id number] 23:55:14 Test Item Value Reference Range Interpretation Comments POC-GLUCOSE METER 203 mg/dL 70-110 H : TESTED A T [facility] 6720 (BEAKER) (test code = [facility], 1538) 69[address]: Public Housing Manager/Techni chandni ID = [id number] for JOHN PARRY POCT-GLUCOSE [id number] 17:41:53 Test Item Value Reference Range Interpretation Comments POC-GLUCOSE METER 248 mg/dL 70-110 H : TESTED A T [facility] 6720 (BEAKER) (test code [facility], = 1538) 00979: Public Housing Manager/Techni chandni ID = [id number] for Sharda Johnson, Gene sis POCT-GLUCOSE [id number] 12:24:53 Test Item Value Reference Range Interpretation Comments POC-GLUCOSE METER 413 mg/dL 70-110 HH : Will Rep eat Test: (BEAKER) (test code TESTED A T [facility] 6720 = 1538) [facility], [address]: Public Housing Manager/Techni chandni ID = [id number] for Sharda Johnson, Gene sis [id number] 06:01:59 Test Item Value Reference Range Interpretation Comments MAGNESIUM (BEAKER) (test code = 1.9 mg/dL 1.6-2.6 627) Public Housing Manager ID - [id number] 06:01:59 Test Item Value Reference Range Interpretation Comments PHOSPHORUS (BEAKER) (test code = 3.9 mg/dL 2.3-4.7 604) Public Housing Manager ID - DBBASIC METABOLIC [id number] 06:01:58 Test Item Value Reference Range Interpretation Comments SODIUM (BEAKER) 139 meq/L 136-145 (test code = 381) POTASSIUM (BEAKER) 3.6 meq/L 3.5-5.1 (test code = 379) CHLORIDE (BEAKER) 103 meq/L 98-107 (test code = 382) CO2 (BEAKER) (test 26 meq/L 22-29 code = 355) BLOOD UREA NITROGEN 28 mg/dL 7-21 H (BEAKER) (test code = 354) CREATININE (BEAKER) 0.66 mg/dL 0.57-1.25 (test code = 358) GLUCOSE RANDOM 307 mg/dL 70-105 H (BEAKER) (test code = 652) CALCIUM (BEAKER) 9.8 mg/dL 8.4-10.2 (test code = 697) EGFR (BEAKER) (test 97 mL/min/1.73 ESTIMA CHANDLER GFR IS code = 1092) sq m NOT ACCURATE CREATININE CLEARANCE IN PREDICTING GLOMERULAR FILTRATION RATE . ESTIMATED GFR I S NOT APPLICABLE FOR DIALYSIS PATIEN TS. Public Housing Manager ID - DBCBC W/PLT COUNT & AUTO [id number] 05:42:44 Test Item Value Reference Range Interpretation Comments WHITE BLOOD CELL COUNT 8.8 K/ L 3.5-10.5 (BEAKER) (test code = 775) RED BLOOD CELL COUNT 3.48 M/ L 3.93-5.22 L (BEAKER) (test code = 761) HEMOGLOBIN (BEAKER) 10.3 GM/DL 11.2-15.7 L (test code = 410) HEMATOCRIT (BEAKER) 32.8 % 34.1-44.9 L (test code = 411) MEAN CORPUSCULAR 94.3 fL 79.4-94.8 Discordant result VOLUME (BEAKER) (test compar ed to previous code = 753) result. Clinica l correlation req uired MEAN CORPUSCULAR 29.6 pg 25.6-32.2 HEMOGLOBIN (BEAKER) (test code = 751) MEAN CORPUSCULAR 31.4 GM/DL 32.2-35.5 L HEMOGLOBIN CONC (BEAKER) (test code = 752) RED CELL DISTRIBUTION 14.5 % 11.7-14.4 H WIDTH (BEAKER) (test code = 412) PLATELET COUNT 521 K/CU MM 150-450 H (BEAKER) (test code = 756) MEAN PLATELET VOLUME 9.1 fL 9.4-12.3 L (BEAKER) (test code = 754) NUCLEATED RED BLOOD 0 /100 WBC 0-0 CELLS (BEAKER) (test code = 413) NEUTROPHILS RELATIVE 74 % PERCENT (BEAKER) (test code = 429) LYMPHOCYTES RELATIVE 16 % PERCENT (BEAKER) (test code = 430) MONOCYTES RELATIVE 7 % PERCENT (BEAKER) (test code = 431) EOSINOPHILS RELATIVE 2 % PERCENT (BEAKER) (test code = 432) BASOPHILS RELATIVE 1 % PERCENT (BEAKER) (test code = 437) NEUTROPHILS ABSOLUTE 6.52 K/ L 1.56-6.13 H COUNT (BEAKER) (test code = 670) LYMPHOCYTES ABSOLUTE 1.39 K/ L 1.18-3.74 COUNT (BEAKER) (test code = 414) MONOCYTES ABSOLUTE 0.65 K/ L 0.24-0.36 H COUNT (BEAKER) (test code = 415) EOSINOPHILS ABSOLUTE 0.14 K/ L 0.04-0.36 COUNT (BEAKER) (test code = 416) BASOPHILS ABSOLUTE 0.04 K/ L 0.01-0.08 COUNT (BEAKER) (test code = 417) IMMATURE 1 % 0-1 GRANULOCYTES-RELATIVE PERCENT (BEAKER) (test code = 2801) POCT-GLUCOSE [id number] 00:47:13 Test Item Value Reference Range Interpretation Comments POC-GLUCOSE METER 198 mg/dL 70-110 H : TESTED A T [facility] 67 ([facility]) (test code = [facility], 153) 111[address]: Public Housing Manager/Techni chandni ID = [id number] for JOHN PARRY POCT-GLUCOSE [id number] 17:57:22 Test Item Value Reference Range Interpretation Comments POC-GLUCOSE METER 283 mg/dL 70-110 H : Notified RN/MD: (YOHANA) (test code = TESTED AT [facility] 6720 153) [facility], [address]: Public Housing Manager/Techni chandni ID = [id number] for Karen Webber POCT-GLUCOSE [id number] 11:47:25 Test Item Value Reference Range Interpretation Comments POC-GLUCOSE METER 397 mg/dL 70-110 H : Notified RN/MD: (YOHANA) (test code = TESTED AT [facility] 6720 1538) [place], [address]: Public Housing Manager/Techni chandni ID = [id number] for Karen Webber POCT-GLUCOSE [id number] 10:08:36 Test Item Value Reference Range Interpretation Comments POC-GLUCOSE METER 358 mg/dL 70-110 H : TESTED A T [facility] 6720 (BEAKER) (test code = [facility] Dickey [facility], 1538) 411[address]: Public Housing Manager/Techni chandni ID = [id number] for Drew joshi (contract), Nos haba CBC W/PLT COUNT & AUTO [id number] 05:53:48 Test Item Value Reference Range Interpretation Comments WHITE BLOOD CELL COUNT (BEAKER) 8.3 K/ L 3.5-10.5 (test code = 775) RED BLOOD CELL COUNT (BEAKER) 3.63 M/ L 3.93-5.22 L (test code = 761) HEMOGLOBIN (BEAKER) (test code = 11.0 GM/DL 11.2-15.7 L 410) HEMATOCRIT (BEAKER) (test code = 35.9 % 34.1-44.9 411) MEAN CORPUSCULAR VOLUME (BEAKER) 98.9 fL 79.4-94.8 H (test code = 753) MEAN CORPUSCULAR HEMOGLOBIN 30.3 pg 25.6-32.2 (BEAKER) (test code = 751) MEAN CORPUSCULAR HEMOGLOBIN CONC 30.6 GM/DL 32.2-35.5 L (BEAKER) (test code = 752) RED CELL DISTRIBUTION WIDTH 14.6 % 11.7-14.4 H (BEAKER) (test code = 412) PLATELET COUNT (BEAKER) (test 489 K/CU MM 150-450 H code = 756) MEAN PLATELET VOLUME (BEAKER) 9.3 fL 9.4-12.3 L (test code = 754) NUCLEATED RED BLOOD CELLS 0 /100 WBC 0-0 (BEAKER) (test code = 413) NEUTROPHILS RELATIVE PERCENT 76 % (BEAKER) (test code = 429) LYMPHOCYTES RELATIVE PERCENT 14 % (BEAKER) (test code = 430) MONOCYTES RELATIVE PERCENT 7 % (BEAKER) (test code = 431) EOSINOPHILS RELATIVE PERCENT 1 % (BEAKER) (test code = 432) BASOPHILS RELATIVE PERCENT 0 % (BEAKER) (test code = 437) NEUTROPHILS ABSOLUTE COUNT 6.32 K/ L 1.56-6.13 H (BEAKER) (test code = 670) LYMPHOCYTES ABSOLUTE COUNT 1.19 K/ L 1.18-3.74 (BEAKER) (test code = 414) MONOCYTES ABSOLUTE COUNT (BEAKER) 0.60 K/ L 0.24-0.36 H (test code = 415) EOSINOPHILS ABSOLUTE COUNT 0.11 K/ L 0.04-0.36 (BEAKER) (test code = 416) BASOPHILS ABSOLUTE COUNT (BEAKER) 0.03 K/ L 0.01-0.08 (test code = 417) IMMATURE GRANULOCYTES-RELATIVE 1 % 0-1 PERCENT (BEAKER) (test code = 2801) [id number] 05:52:49 Test Item Value Reference Range Interpretation Comments PHOSPHORUS (BEAKER) (test code = 3.7 mg/dL 2.3-4.7 604) Public Housing Manager ID - LETY LBASIC METABOLIC [id number] 05:52:48 Test Item Value Reference Range Interpretation Comments SODIUM (BEAKER) 138 meq/L 136-145 (test code = 381) POTASSIUM (BEAKER) 3.7 meq/L 3.5-5.1 (test code = 379) CHLORIDE (BEAKER) 102 meq/L 98-107 (test code = 382) CO2 (BEAKER) (test 22 meq/L 22-29 code = 355) BLOOD UREA NITROGEN 20 mg/dL 7-21 (BEAKER) (test code = 354) CREATININE (BEAKER) 0.68 mg/dL 0.57-1.25 (test code = 358) GLUCOSE RANDOM 348 mg/dL 70-105 H (BEAKER) (test code = 652) CALCIUM (BEAKER) 9.5 mg/dL 8.4-10.2 (test code = 697) EGFR (BEAKER) (test 94 mL/min/1.73 ESTIMA CHANDLER GFR IS code = 1092) sq m NOT ACCURATE CREATININE CLEARANCE IN PREDICTING GLOMERULAR FILTRATION RATE . ESTIMATED GFR I S NOT APPLICABLE FOR DIALYSIS PATIEN TS. Public Housing Manager ID - LETY [id number] 05:52:48 Test Item Value Reference Range Interpretation Comments MAGNESIUM (BEAKER) (test code = 1.9 mg/dL 1.6-2.6 627) Public Housing Manager ID - LETY LPOCT-GLUCOSE [id number] 00:20:27 Test Item Value Reference Range Interpretation Comments POC-GLUCOSE METER 342 mg/dL 70-110 H : TESTED A T [facility] 6720 (BEAKER) (test code = [facility], 1538) [address]: Public Housing Manager/Techni chandni ID = [id number] for DO MINGUEZ, ZAYRA POCT-GLUCOSE [id number] 22:45:11 Test Item Value Reference Range Interpretation Comments POC-GLUCOSE METER 270 mg/dL 70-110 H : TESTED A T [facility] 6720 (BEAKER) (test code = [facility], 1538) [address]: Public Housing Manager/Techni chandni ID = [id number] for DO MINGUEZ, ZAYRA POCT-GLUCOSE [id number] 22:00:30 Test Item Value Reference Range Interpretation Comments POC-GLUCOSE METER 265 mg/dL 70-110 H : TESTED A T [facility] 6720 (BEAKER) (test code = [facility], [facility]8) [address]: Public Housing Manager/Techni chandni ID = [id number] for DO MINGUEZ, ZAYRA POCT-GLUCOSE [id number] 17:58:03 Test Item Value Reference Range Interpretation Comments POC-GLUCOSE METER 245 mg/dL 70-110 H : TESTED A T [facility] 6720 (BEAKER) (test code = [facility], [facility]) [address]: Public Housing Manager/Techni chandni ID = [id number] for LO MARGO, FREEDOM POCT-GLUCOSE [id number] 11:55:38 Test Item Value Reference Range Interpretation Comments POC-GLUCOSE METER 235 mg/dL 70-110 H : TESTED A T [facility] 6720 (BEAKER) (test code = [facility], 1538) [address]: Public Housing Manager/Techni chandni ID = [id number] for LO MARGO, FREEDOM [id number] 06:33:05 Test Item Value Reference Range Interpretation Comments MAGNESIUM (BEAKER) (test code = 1.6 mg/dL 1.6-2.6 627) Public Housing Manager ID - KELSIE [id number] 06:33:05 Test Item Value Reference Range Interpretation Comments PHOSPHORUS (BEAKER) (test code = 3.0 mg/dL 2.3-4.7 604) Public Housing Manager ID - KELSIE MBASIC METABOLIC [id number] 06:33:04 Test Item Value Reference Range Interpretation Comments SODIUM (BEAKER) 139 meq/L 136-145 (test code = 381) POTASSIUM (BEAKER) 3.2 meq/L 3.5-5.1 L (test code = 379) CHLORIDE (BEAKER) 104 meq/L 98-107 (test code = 382) CO2 (BEAKER) (test 25 meq/L 22-29 code = 355) BLOOD UREA NITROGEN 17 mg/dL 7-21 (BEAKER) (test code = 354) CREATININE (BEAKER) 0.59 mg/dL 0.57-1.25 (test code = 358) GLUCOSE RANDOM 218 mg/dL 70-105 H (BEAKER) (test code = 652) CALCIUM (BEAKER) 9.4 mg/dL 8.4-10.2 (test code = 697) EGFR (BEAKER) (test 111 mL/min/1.73 ESTIM ATED GFR IS code = 1092) sq m NOT ACCURATE CREATININE CLEARANCE IN PREDICTING GLOMERULAR FILTRATION RATE . ESTIMATED GFR I S NOT APPLICABLE FOR DIALYSIS PATIEN TS. Public [employer] Manager ID - KELSIE [facility] W/PLT COUNT & AUTO [id number] 06:20:34 Test Item Value Reference Range Interpretation Comments WHITE BLOOD CELL COUNT (BEAKER) 11.3 K/ L 3.5-10.5 H (test code = 775) RED BLOOD CELL COUNT (BEAKER) 3.31 M/ L 3.93-5.22 L (test code = 761) HEMOGLOBIN (BEAKER) (test code = 9.8 GM/DL 11.2-15.7 L 410) HEMATOCRIT (BEAKER) (test code = 32.0 % 34.1-44.9 L 411) MEAN CORPUSCULAR VOLUME (BEAKER) 96.7 fL 79.4-94.8 H (test code = 753) MEAN CORPUSCULAR HEMOGLOBIN 29.6 pg 25.6-32.2 (BEAKER) (test code = 751) MEAN CORPUSCULAR HEMOGLOBIN CONC 30.6 GM/DL 32.2-35.5 L (BEAKER) (test code = 752) RED CELL DISTRIBUTION WIDTH 14.5 % 11.7-14.4 H (BEAKER) (test code = 412) PLATELET COUNT (BEAKER) (test 471 K/CU MM 150-450 H code = 756) MEAN PLATELET VOLUME (BEAKER) 9.0 fL 9.4-12.3 L (test code = 754) NUCLEATED RED BLOOD CELLS 0 /100 WBC 0-0 (BEAKER) (test code = 413) NEUTROPHILS RELATIVE PERCENT 78 % (BEAKER) (test code = 429) LYMPHOCYTES RELATIVE PERCENT 12 % (BEAKER) (test code = 430) MONOCYTES RELATIVE PERCENT 8 % (BEAKER) (test code = 431) EOSINOPHILS RELATIVE PERCENT 2 % (BEAKER) (test code = 432) BASOPHILS RELATIVE PERCENT 0 % (BEAKER) (test code = 437) NEUTROPHILS ABSOLUTE COUNT 8.79 K/ L 1.56-6.13 H (BEAKER) (test code = 670) LYMPHOCYTES ABSOLUTE COUNT 1.33 K/ L 1.18-3.74 (BEAKER) (test code = 414) MONOCYTES ABSOLUTE COUNT (BEAKER) 0.92 K/ L 0.24-0.36 H (test code = 415) EOSINOPHILS ABSOLUTE COUNT 0.19 K/ L 0.04-0.36 (BEAKER) (test code = 416) BASOPHILS ABSOLUTE COUNT (BEAKER) 0.03 K/ L 0.01-0.08 (test code = 417) IMMATURE GRANULOCYTES-RELATIVE 0 % 0-1 PERCENT (BEAKER) (test code = 2801) POCT-GLUCOSE [id number] 05:45:57 Test Item Value Reference Range Interpretation Comments POC-GLUCOSE METER 223 mg/dL 70-110 H : TESTED A T [facility] 6720 ([facility] (test code = [facility], 1538) [address]: Public Housing Manager/Techni chandni ID = [id number] for An golo (contract), Vicki POCT-GLUCOSE [id number] 00:12:07 Test Item Value Reference Range Interpretation Comments POC-GLUCOSE METER 300 mg/dL 70-110 H : Notified RN/: (YOHANA) (test code = TESTED AT [facility] 6720 1538) [facility], [address]: Public Housing Manager/Techni chandni ID = [id number] for An golo (contract), Vicki POCT-GLUCOSE [id number] 17:30:43 Test Item Value Reference Range Interpretation Comments POC-GLUCOSE METER 198 mg/dL 70-110 H : TESTED A T [facility] 6720 (BEAKER) (test code = [facility], 1538) [address]: Public Housing Manager/Techni chandni ID = [id number] for Victorino Thomas POCT-GLUCOSE [id number] 12:44:54 Test Item Value Reference Range Interpretation Comments POC-GLUCOSE METER 235 mg/dL 70-110 H : [facility] (BEAKER[facility] (test code = [facility], 1538) [address]: Public Housing Manager/Techni chandni ID = [id number] for Victorino Thomas POCT-GLUCOSE [id number] 06:23:58 Test Item Value Reference Range Interpretation Comments POC-GLUCOSE METER 269 mg/dL 70-110 H : Notified RN/MD: ([facility]) (test code = TESTED AT [facility] 6720 1538) [facility], [address]: Public Housing Manager/Techni chandni ID = [id number] for GERALD PERRY [id number] 04:14:51 Test Item Value Reference Range Interpretation Comments PHOSPHORUS (BEAKER) (test code = 3.5 mg/dL 2.3-4.7 604) Public Housing Manager ID - [id number] 04:14:50 Test Item Value Reference Range Interpretation Comments MAGNESIUM (BEAKER) (test code = 1.8 mg/dL 1.6-2.6 627) Public Housing Manager ID - DBBASIC METABOLIC [id number] 04:14:49 Test Item Value Reference Range Interpretation Comments SODIUM (BEAKER) 140 meq/L 136-145 (test code = 381) POTASSIUM (BEAKER) 3.5 meq/L 3.5-5.1 (test code = 379) CHLORIDE (BEAKER) 105 meq/L 98-107 (test code = 382) CO2 (BEAKER) (test 24 meq/L 22-29 code = 355) BLOOD UREA NITROGEN 16 mg/dL 7-21 (BEAKER) (test code = 354) CREATININE (BEAKER) 0.61 mg/dL 0.57-1.25 (test code = 358) GLUCOSE RANDOM 258 mg/dL 70-105 H (BEAKER) (test code = 652) CALCIUM (BEAKER) 9.5 mg/dL 8.4-10.2 (test code = 697) EGFR (BEAKER) (test 107 mL/min/1.73 ESTIM ATED GFR IS code = 1092) sq m NOT ACCURATE CREATININE CLEARANCE IN PREDICTING GLOMERULAR FILTRATION RATE . ESTIMATED GFR I S NOT APPLICABLE FOR DIALYSIS PATIEN TS. Public Housing Manager ID - DBCBC W/PLT COUNT & AUTO [id number] 03:58:22 Test Item Value Reference Range Interpretation Comments WHITE BLOOD CELL COUNT (BEAKER) 8.5 K/ L 3.5-10.5 (test code = 775) RED BLOOD CELL COUNT (BEAKER) 3.33 M/ L 3.93-5.22 L (test code = 761) HEMOGLOBIN (BEAKER) (test code = 9.9 GM/DL 11.2-15.7 L 410) HEMATOCRIT (BEAKER) (test code = 31.3 % 34.1-44.9 L 411) MEAN CORPUSCULAR VOLUME (BEAKER) 94.0 fL 79.4-94.8 (test code = 753) MEAN CORPUSCULAR HEMOGLOBIN 29.7 pg 25.6-32.2 (BEAKER) (test code = 751) MEAN CORPUSCULAR HEMOGLOBIN CONC 31.6 GM/DL 32.2-35.5 L (BEAKER) (test code = 752) RED CELL DISTRIBUTION WIDTH 14.7 % 11.7-14.4 H (BEAKER) (test code = 412) PLATELET COUNT (BEAKER) (test 495 K/CU MM 150-450 H code = 756) MEAN PLATELET VOLUME (BEAKER) 8.9 fL 9.4-12.3 L (test code = 754) NUCLEATED RED BLOOD CELLS 0 /100 WBC 0-0 (BEAKER) (test code = 413) NEUTROPHILS RELATIVE PERCENT 72 % (BEAKER) (test code = 429) LYMPHOCYTES RELATIVE PERCENT 16 % (BEAKER) (test code = 430) MONOCYTES RELATIVE PERCENT 10 % (BEAKER) (test code = 431) EOSINOPHILS RELATIVE PERCENT 2 % (BEAKER) (test code = 432) BASOPHILS RELATIVE PERCENT 0 % (BEAKER) (test code = 437) NEUTROPHILS ABSOLUTE COUNT 6.07 K/ L 1.56-6.13 (BEAKER) (test code = 670) LYMPHOCYTES ABSOLUTE COUNT 1.37 K/ L 1.18-3.74 (BEAKER) (test code = 414) MONOCYTES ABSOLUTE COUNT (BEAKER) 0.86 K/ L 0.24-0.36 H (test code = 415) EOSINOPHILS ABSOLUTE COUNT 0.13 K/ L 0.04-0.36 (BEAKER) (test code = 416) BASOPHILS ABSOLUTE COUNT (BEAKER) 0.02 K/ L 0.01-0.08 (test code = 417) IMMATURE GRANULOCYTES-RELATIVE 1 % 0-1 PERCENT (BEAKER) (test code = 2801) POCT-GLUCOSE [id number] 00:42:06 Test Item Value Reference Range Interpretation Comments POC-GLUCOSE METER 219 mg/dL 70-110 H : Notified RN/MD: ([facility]) (test code = TESTED AT [facility] 6720 1538) [facility], [address]: Public Housing Manager/Techni chandni ID = [id number] for GENOVEVA DAPHNEPAWEL GERALD POCT-GLUCOSE [id number] 18:56:57 Test Item Value Reference Range Interpretation Comments POC-GLUCOSE METER 240 mg/dL 70-110 H : [facility] ([facility]) (test code [facility], = 1538) [address]: Public Housing Manager/Techni chandni ID = [id number] for StuartPreeti carvajal POCT-GLUCOSE [id number] 11:45:24 Test Item Value Reference Range Interpretation Comments POC-GLUCOSE METER 249 mg/dL 70-110 H : [facility] ([facility]) (test code [facility], = 1538) [address]: Public Housing Manager/Techni chandni ID = [id number] for Sharda Johnson, Gene sis [id number] 08:38:27 Test Item Value Reference Range Interpretation Comments PHOSPHORUS (BEAKER) (test code = 3.1 mg/dL 2.3-4.7 604) Public Housing Manager ID - LETY [id number] 08:38:26 Test Item Value Reference Range Interpretation Comments MAGNESIUM (BEAKER) (test code = 1.6 mg/dL 1.6-2.6 627) Public Housing Manager ID - LETY LBASIC METABOLIC [id number] 08:38:25 Test Item Value Reference Range Interpretation Comments SODIUM (BEAKER) 141 meq/L 136-145 (test code = 381) POTASSIUM (BEAKER) 3.5 meq/L 3.5-5.1 (test code = 379) CHLORIDE (BEAKER) 107 meq/L 98-107 (test code = 382) CO2 (BEAKER) (test 26 meq/L 22-29 code = 355) BLOOD UREA NITROGEN 18 mg/dL 7-21 (BEAKER) (test code = 354) CREATININE (BEAKER) 0.62 mg/dL 0.57-1.25 (test code = 358) GLUCOSE RANDOM 222 mg/dL 70-105 H (BEAKER) (test code = 652) CALCIUM (BEAKER) 9.4 mg/dL 8.4-10.2 (test code = 697) EGFR (BEAKER) (test 105 mL/min/1.73 ESTIM ATED GFR IS code = 1092) sq m NOT ACCURATE CREATININE CLEARANCE IN PREDICTING GLOMERULAR FILTRATION RATE . ESTIMATED GFR I S NOT APPLICABLE FOR DIALYSIS PATIEN TS. Public Housing Manager ID - PIAYA LCBC W/PLT COUNT & AUTO [id number] 06:36:54 Test Item Value Reference Range Interpretation Comments WHITE BLOOD CELL COUNT (BEAKER) 8.7 K/ L 3.5-10.5 (test code = 775) RED BLOOD CELL COUNT (BEAKER) 3.08 M/ L 3.93-5.22 L (test code = 761) HEMOGLOBIN (BEAKER) (test code = 9.3 GM/DL 11.2-15.7 L 410) HEMATOCRIT (BEAKER) (test code = 28.2 % 34.1-44.9 L 411) MEAN CORPUSCULAR VOLUME (BEAKER) 91.6 fL 79.4-94.8 (test code = 753) MEAN CORPUSCULAR HEMOGLOBIN 30.2 pg 25.6-32.2 (BEAKER) (test code = 751) MEAN CORPUSCULAR HEMOGLOBIN CONC 33.0 GM/DL 32.2-35.5 (BEAKER) (test code = 752) RED CELL DISTRIBUTION WIDTH 14.9 % 11.7-14.4 H (BEAKER) (test code = 412) PLATELET COUNT (BEAKER) (test 514 K/CU MM 150-450 H code = 756) MEAN PLATELET VOLUME (BEAKER) 9.2 fL 9.4-12.3 L (test code = 754) NUCLEATED RED BLOOD CELLS 0 /100 WBC 0-0 (BEAKER) (test code = 413) NEUTROPHILS RELATIVE PERCENT 72 % (BEAKER) (test code = 429) LYMPHOCYTES RELATIVE PERCENT 16 % (BEAKER) (test code = 430) MONOCYTES RELATIVE PERCENT 11 % (BEAKER) (test code = 431) EOSINOPHILS RELATIVE PERCENT 1 % (BEAKER) (test code = 432) BASOPHILS RELATIVE PERCENT 0 % (BEAKER) (test code = 437) NEUTROPHILS ABSOLUTE COUNT 6.27 K/ L 1.56-6.13 H (BEAKER) (test code = 670) LYMPHOCYTES ABSOLUTE COUNT 1.35 K/ L 1.18-3.74 (BEAKER) (test code = 414) MONOCYTES ABSOLUTE COUNT (BEAKER) 0.91 K/ L 0.24-0.36 H (test code = 415) EOSINOPHILS ABSOLUTE COUNT 0.07 K/ L 0.04-0.36 (BEAKER) (test code = 416) BASOPHILS ABSOLUTE COUNT (BEAKER) 0.02 K/ L 0.01-0.08 (test code = 417) IMMATURE GRANULOCYTES-RELATIVE 1 % 0-1 PERCENT (BEAKER) (test code = 2801) POCT-GLUCOSE [id number] 05:31:55 Test Item Value Reference Range Interpretation Comments POC-GLUCOSE METER 180 mg/dL 70-110 H : TESTED A T [facility] 6720 (BEAKER) (test code = [facility], [facility]8) [address]: Public Housing Manager/Techni chandni ID = [id number] for UE JOHNNY, ALISSA POCT-GLUCOSE [id number] 00:28:02 Test Item Value Reference Range Interpretation Comments POC-GLUCOSE METER 270 mg/dL 70-110 H : TESTED A T [facility] 6720 (BEAKER) (test code = [facility], 1538) [address]: Public Housing Manager/Techni chandni ID = [id number] for UE JOHNNY, ALISSA POCT-GLUCOSE [id number] 18:37:04 Test Item Value Reference Range Interpretation Comments POC-GLUCOSE METER 236 mg/dL 70-110 H : TESTED A T [facility] 6720 (BEAKER) (test code = [facility], 1538) [address]: Public Housing Manager/Techni chandni ID = [id number] for LAUREN NNHEIDE ROWE POCT-GLUCOSE [id number] 13:02:26 Test Item Value Reference Range Interpretation Comments POC-GLUCOSE METER 206 mg/dL 70-110 H : TESTED A T [facility] 6720 (BEAKER) (test code = [facility], 1538) [address]: Public Housing Manager/Techni chandni ID = [id number] for LAUREN NNHEIDE ROWE POCT-GLUCOSE [id number] 09:22:08 Test Item Value Reference Range Interpretation Comments POC-GLUCOSE METER 171 mg/dL 70-110 H : TESTED A T [facility] 6720 (BEAKER) (test code = [facility], [facility]8) [address]: Public Housing Manager/Techni chandni ID = [id number] for SOPHIA ALVA POCT-GLUCOSE [id number] 08:15:45 Test Item Value Reference Range Interpretation Comments POC-GLUCOSE METER 159 mg/dL 70-110 H : TESTED A T [facility] 6720 (BEAKER) (test code = [facility], [facility]8) [address]: Public Housing Manager/Techni chandni ID = [id number] for AMANDA KOVACS [id number] 06:43:55 Test Item Value Reference Range Interpretation Comments FERRITIN (BEAKER) (test code = 67.26 ng/mL 5.00-275.00 361) Public Housing Manager ID - LETY LVITAMIN B12 AND [id number] 06:43:55 Test Item Value Reference Range Interpretation Comments VITAMIN B12 175 pg/mL 213-816 L (BEAKER) (test code = 774) FOLATE (BEAKER) 16.30 ng/mL See_Comment [Automated message] (test code = 362) The system which generated this result transmitted ref erence range: >=7.00. The reference range was not used to interpr et this result as normal/abnormal . Public Housing Manager ID - LETY NEGRO, TIBC, % SAT. (WITHOUT FERRITIN)2021-05-16 06:17:00 Test Item Value Reference Range Interpretation Comments IRON (BEAKER) (test code = 547) 29.0 ug/dL 40.0-160.0 L TOTAL IRON BINDING CAPACITY 255 ug/dL 250-450 (BEAKER) (test code = 769) IRON % SATURATION (2) (BEAKER) 11 % 20-55 L (test code = 2590) Public Housing Manager ID - LETY [id number] 06:09:03 Test Item Value Reference Range Interpretation Comments PHOSPHORUS (BEAKER) (test code = 3.7 mg/dL 2.3-4.7 604) Public Housing Manager ID - LETY LBASIC METABOLIC [id number] 06:09:02 Test Item Value Reference Range Interpretation Comments SODIUM (BEAKER) 144 meq/L 136-145 (test code = 381) POTASSIUM (BEAKER) 3.4 meq/L 3.5-5.1 L (test code = 379) CHLORIDE (BEAKER) 107 meq/L 98-107 (test code = 382) CO2 (BEAKER) (test 28 meq/L 22-29 code = 355) BLOOD UREA NITROGEN 23 mg/dL 7-21 H (BEAKER) (test code = 354) CREATININE (BEAKER) 0.57 mg/dL 0.57-1.25 (test code = 358) GLUCOSE RANDOM 139 mg/dL 70-105 H (BEAKER) (test code = 652) CALCIUM (BEAKER) 9.4 mg/dL 8.4-10.2 (test code = 697) EGFR (BEAKER) (test 115 mL/min/1.73 ESTIM ATED GFR IS code = 1092) sq m NOT ACCURATE CREATININE CLEARANCE IN PREDICTING GLOMERULAR FILTRATION RATE . ESTIMATED GFR I S NOT APPLICABLE FOR DIALYSIS PATIEN TS. Public Housing Manager ID - LETY [id number] 06:09:02 Test Item Value Reference Range Interpretation Comments MAGNESIUM (BEAKER) (test code = 2.5 mg/dL 1.6-2.6 627) Public Housing Manager ID - LETY [id number] 06:06:51 Test Item Value Reference Range Interpretation Comments PARTIAL THROMBOPLASTIN TIME < seconds 22.5-36.0 L (BEAKER) (test code = 760) CBC W/PLT COUNT & AUTO [id number] 06:02:13 Test Item Value Reference Range Interpretation Comments WHITE BLOOD CELL COUNT (BEAKER) 7.9 K/ L 3.5-10.5 (test code = 775) RED BLOOD CELL COUNT (BEAKER) 3.23 M/ L 3.93-5.22 L (test code = 761) HEMOGLOBIN (BEAKER) (test code = 9.6 GM/DL 11.2-15.7 L 410) HEMATOCRIT (BEAKER) (test code = 30.3 % 34.1-44.9 L 411) MEAN CORPUSCULAR VOLUME (BEAKER) 93.8 fL 79.4-94.8 (test code = 753) MEAN CORPUSCULAR HEMOGLOBIN 29.7 pg 25.6-32.2 (BEAKER) (test code = 751) MEAN CORPUSCULAR HEMOGLOBIN CONC 31.7 GM/DL 32.2-35.5 L (BEAKER) (test code = 752) RED CELL DISTRIBUTION WIDTH 14.7 % 11.7-14.4 H (BEAKER) (test code = 412) PLATELET COUNT (BEAKER) (test 523 K/CU MM 150-450 H code = 756) MEAN PLATELET VOLUME (BEAKER) 9.4 fL 9.4-12.3 (test code = 754) NUCLEATED RED BLOOD CELLS 0 /100 WBC 0-0 (BEAKER) (test code = 413) NEUTROPHILS RELATIVE PERCENT 65 % (BEAKER) (test code = 429) LYMPHOCYTES RELATIVE PERCENT 22 % (BEAKER) (test code = 430) MONOCYTES RELATIVE PERCENT 11 % (BEAKER) (test code = 431) EOSINOPHILS RELATIVE PERCENT 2 % (BEAKER) (test code = 432) BASOPHILS RELATIVE PERCENT 1 % (BEAKER) (test code = 437) NEUTROPHILS ABSOLUTE COUNT 5.10 K/ L 1.56-6.13 (BEAKER) (test code = 670) LYMPHOCYTES ABSOLUTE COUNT 1.74 K/ L 1.18-3.74 (BEAKER) (test code = 414) MONOCYTES ABSOLUTE COUNT (BEAKER) 0.83 K/ L 0.24-0.36 H (test code = 415) EOSINOPHILS ABSOLUTE COUNT 0.13 K/ L 0.04-0.36 (BEAKER) (test code = 416) BASOPHILS ABSOLUTE COUNT (BEAKER) 0.04 K/ L 0.01-0.08 (test code = 417) IMMATURE GRANULOCYTES-RELATIVE 1 % 0-1 PERCENT (BEAKER) (test code = 2801) PROTHROMBIN [id number] 05:53:34 Test Item Value Reference Range Interpretation Comments PROTIME (BEAKER) 13.5 seconds 11.9-14.2 (test code = 759) INR (BEAKER) (test 1.05 See_Comment [Automat ed message] code = 370) The system [employer] generated this result transmitted ref erence range: <=5.90. The reference range was not used to int erpret this result as normal/abnormal . RECOMMENDED COUMADIN/WARFARIN INR THERAPY RANGESSTANDARD DOSE: 2.0 - 3.0 Includes: PROPHYLAXIS forvenous thrombosis, systemic embolization; TREATMENT for venous thrombosis and/or pulmonary embolus.HIGH RISK: Target INR is 2.5-3.5 for patients with mechanical heart valves.POCT-GLUCOSE [id number] 23:38:18 Test Item Value Reference Range Interpretation Comments POC-GLUCOSE METER 224 mg/dL 70-110 H : TESTED A T [facility] 6720 (Fannect) (test code = [facility], 1538) [address]: Public Housing Manager/Techni chandni ID = [id number] for Jamal avelAriana cerrato POCT-GLUCOSE [id number] 17:50:23 Test Item Value Reference Range Interpretation Comments POC-GLUCOSE METER 160 mg/dL 70-110 H : TESTED A T [facility] 6720 (Fannect) (test code [facility], = 1538) [address]: Public Housing Manager/Techni chandni ID = [id number] for MIRI GARCES [id number] 15:08:02 Test Item Value Reference Range Interpretation Comments PROCALCITONIN (BEAKER) (test code 0.09 ng/mL <0.05 H = 3036) SEPSIS RISK (ng/mL)Low: 0.05-0.50Intermediate: 0.51-2.00High: >=2.01POCT-GLUCOSE [id number] 11:14:07 Test Item Value Reference Range Interpretation Comments POC-GLUCOSE METER 290 mg/dL 70-110 H : TESTED A T [facility] 6720 (Fannect) (test code = [facility], 1538) [address]: Public Housing Manager/Techni chandni ID = [id number] for Michelle Jones HEMOGLOBIN [id number] 09:59:34 Test Item Value Reference Range Interpretation Comments HEMOGLOBIN A1C 10.7 % See_Comment H [Automated m essage] ELECTROPHORESIS (YOHANA) The system which (test code = 3811) generated this result transmitted ref erence range: <=5.6%. The reference range was not used to int erpret this result as normal/abnormal . "The A1c is measured using a NGSP-certified method. HbA1c value equal to or greater than 6.5% as thediagnosis cutoff for diabetes. An HbA1c value of 5.7- 6.4% indicates increased risk for diabetes (prediabetes)."Public Housing Manager ID - ADMOperator ID - ADMRAD, CHEST, 1 VIEW, NON [id number] 09:08:00Reason for exam:->R/o pneumoniaShould this be performed at the bedside?->Yes [facility] 1975 Sex: FFINAL REPORT INDICATION: R/o pneumonia COMPARISON: 05/13/2021 x-ray TECHNIQUE: Single frontal view of the chest. FINDINGS: Lines, tubes, and devices: The life support lines and tubes are unchanged. Lungs and pleura: Clear lungs. No effusion.Heart and mediastinum: Normal heart size. Unremarkable mediastinal contours.Osseous structures: No acute abnormality.Other: None. IMPRE SSION: No acute intrathoracic abnormality. Signed: Mike Ramos Verified Date/Time: 05/15/2021 09:08:45 Reading Location: [facility] Radiology Reading Room POCT-GLUCOSE [id number] 05:32:19 Test Item Value Reference Range Interpretation Comments POC-GLUCOSE METER 241 mg/dL 70-110 H : [facility] (BEAKER) (test code = [place], 1538) [address]: Public Housing Manager/Techni chandni ID = [id number] for Ariana Arguelles BLOOD GAS, [id number] 04:31:54 Test Item Value Reference Range Interpretation Comments PH VENOUS (BEAKER) (test code = 7.45 7.32-7.42 H 701) PCO2 VENOUS (BEAKER) (test code = 38 mm Hg 41-51 L 755) PO2 VENOUS (BEAKER) (test code = 42 mm Hg 25-40 H 702) O2 SATURATION VENOUS (BEAKER) 80.5 % 40.0-70.0 H (test code = 703) HCO3 VENOUS (BEAKER) (test code = 26 mmol/L 21-29 705) BASE EXCESS VENOUS (BEAKER) (test 1.8 mmol/L -2.0-3.0 code = 704) PATIENT TEMPERATURE (BEAKER) (test 37.0 code = 1818) [id number] 04:10:13 Test Item Value Reference Range Interpretation Comments PHOSPHORUS (BEAKER) (test code = 3.3 mg/dL 2.3-4.7 604) Public Housing Manager ID - KELSIE [id number] 04:10:12 Test Item Value Reference Range Interpretation Comments MAGNESIUM (BEAKER) (test code = 2.0 mg/dL 1.6-2.6 627) Public Housing Manager ID - KELSIE MBASIC METABOLIC [id number] 04:10:11 Test Item Value Reference Range Interpretation Comments SODIUM (BEAKER) 143 meq/L 136-145 (test code = 381) POTASSIUM (BEAKER) 4.0 meq/L 3.5-5.1 (test code = 379) CHLORIDE (BEAKER) 110 meq/L 98-107 H (test code = 382) CO2 (BEAKER) (test 25 meq/L 22-29 code = 355) BLOOD UREA NITROGEN 20 mg/dL 7-21 (BEAKER) (test code = 354) CREATININE (BEAKER) 0.68 mg/dL 0.57-1.25 (test code = 358) GLUCOSE RANDOM 177 mg/dL 70-105 H (BEAKER) (test code = 652) CALCIUM (BEAKER) 9.8 mg/dL 8.4-10.2 (test code = 697) EGFR (BEAKER) (test 94 mL/min/1.73 ESTIMA CHANDLER GFR IS code = 1092) sq m NOT ACCURATE CREATININE CLEARANCE IN PREDICTING GLOMERULAR FILTRATION RATE . ESTIMATED GFR I S NOT APPLICABLE FOR DIALYSIS PATIEN TS. Public Housing Manager ID - KELSIE MCBC W/PLT COUNT & AUTO [id number] 03:57:00 Test Item Value Reference Range Interpretation Comments WHITE BLOOD CELL COUNT (BEAKER) 11.1 K/ L 3.5-10.5 H (test code = 775) RED BLOOD CELL COUNT (BEAKER) 3.49 M/ L 3.93-5.22 L (test code = 761) HEMOGLOBIN (BEAKER) (test code = 10.6 GM/DL 11.2-15.7 L 410) HEMATOCRIT (BEAKER) (test code = 33.5 % 34.1-44.9 L 411) MEAN CORPUSCULAR VOLUME (BEAKER) 96.0 fL 79.4-94.8 H (test code = 753) MEAN CORPUSCULAR HEMOGLOBIN 30.4 pg 25.6-32.2 (BEAKER) (test code = 751) MEAN CORPUSCULAR HEMOGLOBIN CONC 31.6 GM/DL 32.2-35.5 L (BEAKER) (test code = 752) RED CELL DISTRIBUTION WIDTH 14.5 % 11.7-14.4 H (BEAKER) (test code = 412) PLATELET COUNT (BEAKER) (test 575 K/CU MM 150-450 H code = 756) MEAN PLATELET VOLUME (BEAKER) 9.3 fL 9.4-12.3 L (test code = 754) NUCLEATED RED BLOOD CELLS 0 /100 WBC 0-0 (BEAKER) (test code = 413) NEUTROPHILS RELATIVE PERCENT 68 % (BEAKER) (test code = 429) LYMPHOCYTES RELATIVE PERCENT 19 % (BEAKER) (test code = 430) MONOCYTES RELATIVE PERCENT 11 % (BEAKER) (test code = 431) EOSINOPHILS RELATIVE PERCENT 1 % (BEAKER) (test code = 432) BASOPHILS RELATIVE PERCENT 0 % (BEAKER) (test code = 437) NEUTROPHILS ABSOLUTE COUNT 7.59 K/ L 1.56-6.13 H (BEAKER) (test code = 670) LYMPHOCYTES ABSOLUTE COUNT 2.12 K/ L 1.18-3.74 (BEAKER) (test code = 414) MONOCYTES ABSOLUTE COUNT (BEAKER) 1.21 K/ L 0.24-0.36 H (test code = 415) EOSINOPHILS ABSOLUTE COUNT 0.07 K/ L 0.04-0.36 (BEAKER) (test code = 416) BASOPHILS ABSOLUTE COUNT (BEAKER) 0.05 K/ L 0.01-0.08 (test code = 417) IMMATURE GRANULOCYTES-RELATIVE 1 % 0-1 PERCENT (BEAKER) (test code = 2801) SARS-COV2/RT-PCR ([facility])2021-05-15 00:33:15 Test Item Value Reference Range Interpretation Comments SARS-COV2/RT-PCR (test code = Negative Negative [id number]) Negative result for this test determines that SARS-CoV-2 RNA was not present in the specimen above the Limit of Detection (LOD). However, Negative results do not preclude SARS-CoV-2 infection and should not be used as the sole basis for treatment or patient management decisions. Negative results must be combined with clinical observations, patient history, and epidemiological information. A false negative result may occur if a specimen is improperly collected, transported, or handled. A false negative result should be considered if patient's recent exposures or clinical presentation indicate that COVID-19 (SARS-CoV-2) is likely and diagnostic tests for other causes of illness are negative. Re-testing should be considered in cases of suspected false negatives.The limit of detection for this assay is 100 copies/mL.This SARS-CoV-2 test is a real-time RT_PCR test intended for the qualitative detection of nucleic acid from SARS-CoV-2 in a nasopharyngeal swab specimen collected from individuals suspected of COVID-19 by their healthcare provider.This test has not been Food and Drug Administration (FDA) cleared or approved. This is a modified version of an approved Emergency Use Authorization (EUA) and is in the process of review by the FDA. Once authorized by the FDA, the issued EUA will be e ffective until the declaration that circumstances exist justifying the authorization of the emergency use of in vitro diagnostic tests for detection and/or diagnosis of COVID-19 is terminated under Section 564(b)(2) of the Act or the EUA is revoked under Section 564(g) of the Act.Testing was performedusing the May SARS-CoV-2 assay.Fact Sheet for Healthcare Providers:[email or web address]://[email or web address]/[email or web address]/RT SARS-CoV-2 HCP Fact Sheet 51- 299791.pdfFact Sheet for Healthcare Patients:[email or web address]://[email or web address]/[email or web address]/RT SARS-CoV-2 Patient Fact Sheet EN [id number].pdfPOCT-GLUCOSE [id number] 00:06:07 Test Item Value Reference Range Interpretation Comments POC-GLUCOSE METER 166 mg/dL 70-110 H : TESTED A T [facility] 6720 (BEAKER) (test code = [facility], 1538) [address]: Public Housing Manager/Techni chandni ID = [id number] for Ariana Arguelles POCT-GLUCOSE [id number] 18:29:11 Test Item Value Reference Range Interpretation Comments POC-GLUCOSE METER 228 mg/dL 70-110 H : TESTED A T [facility] 6720 (BEAKER) (test code = [facility], 1538) [address]327: Public Housing Manager/Techni chandni ID = [id number] for LE IJA, AURA VALPROIC ACID LEVEL, [id number] 15:15:49 Test Item Value Reference Range Interpretation Comments VALPROIC ACID TOTAL (BEAKER) (test 51 ug/mL 50-100 code = 924) Therapeutic range for some clinical conditions may be >100 ug/mLOperator ID - AAHAMIDPOCT-GLUCOSE [id number] 11:49:28 Test Item Value Reference Range Interpretation Comments POC-GLUCOSE METER 298 mg/dL 70-110 H : TESTED A T [facility] 6720 (BEAKER) (test code = [facility] Re Pet [facility], 1538) [address]: Public Housing Manager/Techni chandni ID = [id number] for LE IJA, AURA POCT-GLUCOSE [id number] 05:31:25 Test Item Value Reference Range Interpretation Comments POC-GLUCOSE METER 355 mg/dL 70-110 H : TESTED A T [facility] 6720 (BEAKER) (test code = [facility], 1538) [address]: Public Housing Manager/Techni chandni ID = [id number] for Jamal quinteros Ariana [id number] 03:48:21 Test Item Value Reference Range Interpretation Comments MAGNESIUM (BEAKER) (test code = 2.0 mg/dL 1.6-2.6 627) Public Housing Manager ID - MCKAYLA [id number] 03:48:21 Test Item Value Reference Range Interpretation Comments PHOSPHORUS (BEAKER) (test code = 2.7 mg/dL 2.3-4.7 604) Public Housing Manager ID Roslyn BLOCK GHEPATIC FUNCTION [id number] 03:48:21 Test Item Value Reference Range Interpretation Comments TOTAL PROTEIN (BEAKER) (test code = 6.2 gm/dL 6.0-8.3 770) ALBUMIN (BEAKER) (test code = 1145) 3.4 g/dL 3.5-5.0 L BILIRUBIN TOTAL (BEAKER) (test code 0.2 mg/dL 0.2-1.2 = 377) BILIRUBIN DIRECT (BEAKER) (test 0.2 mg/dL 0.1-0.5 code = 706) ALKALINE PHOSPHATASE (BEAKER) (test 104 U/L 40-150 code = 346) AST (SGOT) (BEAKER) (test code = 49 U/L 5-34 H 353) ALT (SGPT) (BEAKER) (test code = 42 U/L 6-55 347) Public Housing Manager ID - MCKAYLA GBASIC METABOLIC [id number] 03:48:20 Test Item Value Reference Range Interpretation Comments SODIUM (BEAKER) 139 meq/L 136-145 (test code = 381) POTASSIUM (BEAKER) 4.0 meq/L 3.5-5.1 (test code = 379) CHLORIDE (BEAKER) 105 meq/L 98-107 (test code = 382) CO2 (BEAKER) (test 22 meq/L 22-29 code = 355) BLOOD UREA NITROGEN 12 mg/dL 7-21 (BEAKER) (test code = 354) CREATININE (BEAKER) 0.65 mg/dL 0.57-1.25 (test code = 358) GLUCOSE RANDOM 349 mg/dL 70-105 H (BEAKER) (test code = 652) CALCIUM (BEAKER) 9.3 mg/dL 8.4-10.2 (test code = 697) EGFR (BEAKER) (test 99 mL/min/1.73 ESTIMA CHANDLER GFR IS code = 1092) sq m NOT ACCURATE CREATININE CLEARANCE IN PREDICTING GLOMERULAR FILTRATION RATE . ESTIMATED GFR I S NOT APPLICABLE FOR DIALYSIS PATIEN TS. Public Housing Manager ID - MCKAYLA GCBC W/PLT COUNT & AUTO [id number] 03:13:21 Test Item Value Reference Range Interpretation Comments WHITE BLOOD CELL COUNT (BEAKER) 7.5 K/ L 3.5-10.5 (test code = 775) RED BLOOD CELL COUNT (BEAKER) 3.55 M/ L 3.93-5.22 L (test code = 761) HEMOGLOBIN (BEAKER) (test code = 10.5 GM/DL 11.2-15.7 L 410) HEMATOCRIT (BEAKER) (test code = 32.7 % 34.1-44.9 L 411) MEAN CORPUSCULAR VOLUME (BEAKER) 92.1 fL 79.4-94.8 (test code = 753) MEAN CORPUSCULAR HEMOGLOBIN 29.6 pg 25.6-32.2 (BEAKER) (test code = 751) MEAN CORPUSCULAR HEMOGLOBIN CONC 32.1 GM/DL 32.2-35.5 L (BEAKER) (test code = 752) RED CELL DISTRIBUTION WIDTH 13.5 % 11.7-14.4 (BEAKER) (test code = 412) PLATELET COUNT (BEAKER) (test 509 K/CU MM 150-450 H code = 756) MEAN PLATELET VOLUME (BEAKER) 9.0 fL 9.4-12.3 L (test code = 754) NUCLEATED RED BLOOD CELLS 0 /100 WBC 0-0 (BEAKER) (test code = 413) NEUTROPHILS RELATIVE PERCENT 76 % (BEAKER) (test code = 429) LYMPHOCYTES RELATIVE PERCENT 15 % (BEAKER) (test code = 430) MONOCYTES RELATIVE PERCENT 7 % (BEAKER) (test code = 431) EOSINOPHILS RELATIVE PERCENT 1 % (BEAKER) (test code = 432) BASOPHILS RELATIVE PERCENT 1 % (BEAKER) (test code = 437) NEUTROPHILS ABSOLUTE COUNT 5.73 K/ L 1.56-6.13 (BEAKER) (test code = 670) LYMPHOCYTES ABSOLUTE COUNT 1.10 K/ L 1.18-3.74 L (BEAKER) (test code = 414) MONOCYTES ABSOLUTE COUNT (BEAKER) 0.54 K/ L 0.24-0.36 H (test code = 415) EOSINOPHILS ABSOLUTE COUNT 0.06 K/ L 0.04-0.36 (BEAKER) (test code = 416) BASOPHILS ABSOLUTE COUNT (AKER) 0.04 K/ L 0.01-0.08 (test code = 417) IMMATURE GRANULOCYTES-RELATIVE 1 % 0-1 PERCENT (AKER) (test code = 2801) CALCIUM, [id number] 03:09:30 Test Item Value Reference Range Interpretation Comments CALCIUM IONIZED ([facility]) (test 1.19 mmol/L 1.12-1.27 code = 698) PH, BLOOD ([facility]) (test code = 7.49 1810) POCT-GLUCOSE [id number] 00:04:35 Test Item Value Reference Range Interpretation Comments POC-GLUCOSE METER 307 mg/dL 70-110 H : TESTED A T [place] [address] ([facility]) (test code = [facility], 1538) [address]: Public Housing Manager/Techni chandni ID = [id number] for MORGAN LAZCANO POCT-GLUCOSE [id number] 17:58:19 Test Item Value Reference Range Interpretation Comments POC-GLUCOSE METER 316 mg/dL 70-110 H : Notified RN/MD: ([facility]) (test code = TESTED AT [place] [address] 1538) [facility], [address]: Public Housing Manager/Techni chandni ID = [id number] for BAILEY BANERJEE POCT-GLUCOSE [id number] 12:19:23 Test Item Value Reference Range Interpretation Comments POC-GLUCOSE METER 278 mg/dL 70-110 H : Notified RN/MD: ([facility]) (test code = TESTED AT [place] [address] 1538) [facility], [address]: Public Housing Manager/Techni chandni ID = [id number] for SE SALCEDOENE (V) SAYRA RAD, CHEST, 1 VIEW, NON [id number] 09:32:00Reason for exam:- >CongestionShould this be performed at the bedside?->Yes [facility] : 1975 Sex: FFINAL REPORT TECHNIQUE: One view of the chest. INDICATION: 45-year-old woman with congestion. COMPARISON: Chest radiograph 05/12/2021. FINDINGS: LINES/TUBES: Interval extubation. Unchanged feeding tube. LUNGS: Lungs are well inflated. No consolidation or pulmonary edema. PLEURA: No pneumothorax or significant pleural effusion. HEART AND MEDIASTINUM: Cardiomediastinal silhou ette is unchanged. BONES AND SOFT TISSUES: Unremarkable. IMPRESSION:Lines/tubes as above. No acute cardiopulmonary abnormality. Signed: Tai Negro MDReport Verified Date/Time: 05/13/2021 09:32:39 Reading Location: [place] [id number] CT Body Reading Room POCT-GLUCOSE [id number] 06:53:00 Test Item Value Reference Range Interpretation Comments POC-GLUCOSE METER 127 mg/dL 70-110 H : TESTED A T [facility] 6720 (BEAKER) (test code = [facility] Noble [facility], 1538) [address]: Public Housing Manager/Techni chandni ID = [id number] for VA RELA, CHALO POCT-GLUCOSE [id number] 05:40:29 Test Item Value Reference Range Interpretation Comments POC-GLUCOSE METER 111 mg/dL 70-110 H : TESTED A T [facility] 6720 (BEAKER) (test code = [facility] [place] [facility], 1538) [address]: Public Housing Manager/Techni chandni ID = [id number] for MORGAN LAZCANO BASIC METABOLIC [id number] 04:52:01 Test Item Value Reference Range Interpretation Comments SODIUM (BEAKER) 139 meq/L 136-145 (test code = 381) POTASSIUM (BEAKER) 3.7 meq/L 3.5-5.1 Specimen slightly (test code = 379) hemolyzed CHLORIDE (BEAKER) 107 meq/L 98-107 (test code = 382) CO2 (BEAKER) (test 24 meq/L 22-29 code = 355) BLOOD UREA NITROGEN 14 mg/dL 7-21 (BEAKER) (test code = 354) CREATININE (BEAKER) 0.50 mg/dL 0.57-1.25 L Specimen slightly (test code = 358) hemolyzed GLUCOSE RANDOM 78 mg/dL 70-105 (BEAKER) (test code = 652) CALCIUM (BEAKER) 8.9 mg/dL 8.4-10.2 (test code = 697) EGFR (BEAKER) (test 134 mL/min/1.73 ESTIM ATED GFR IS code = 1092) sq m NOT ACCURATE CREATININE CLEARANCE IN PREDICTING GLOMERULAR FILTRATION RATE . ESTIMATED GFR I S NOT APPLICABLE FOR DIALYSIS PATIEN TS. Public Housing Manager ID - PIAYA LHEPATIC FUNCTION [id number] 04:52:01 Test Item Value Reference Range Interpretation Comments TOTAL PROTEIN (BEAKER) 5.9 gm/dL 6.0-8.3 L Speci men slightly (test code = 770) hemolyzed ALBUMIN (BEAKER) (test 3.3 g/dL 3.5-5.0 L Speci men slightly code = 1145) hemolyzed BILIRUBIN TOTAL 0.2 mg/dL 0.2-1.2 Specimen sli ghtly (BEAKER) (test code = hemoly zed 377) BILIRUBIN DIRECT 0.1 mg/dL 0.1-0.5 Specimen sl ightly (BEAKER) (test code = hemoly zed 706) ALKALINE PHOSPHATASE 81 U/L 40-150 (BEAKER) (test code = 346) AST (SGOT) (BEAKER) 57 U/L 5-34 H Specimen slightly (test code = 353) hemolyzed ALT (SGPT) (BEAKER) 29 U/L 6-55 Specimen slightly (test code = 347) hemolyzed Public Housing Manager ID - PIDIOGENES [id number] 04:52:00 Test Item Value Reference Range Interpretation Comments MAGNESIUM (BEAKER) 1.9 mg/dL 1.6-2.6 Specimen slightly (test code = 627) hemolyzed Public Housing Manager ID - PIDIOGENES [id number] 04:52:00 Test Item Value Reference Range Interpretation Comments PHOSPHORUS (BEAKER) 3.1 mg/dL 2.3-4.7 Specimen slightly (test code = 604) hemolyzed Public Housing Manager LANE - LETY LCBC W/PLT COUNT & AUTO [id number] 04:09:03 Test Item Value Reference Range Interpretation Comments WHITE BLOOD CELL COUNT (BEAKER) 6.3 K/ L 3.5-10.5 (test code = 775) RED BLOOD CELL COUNT (BEAKER) 3.21 M/ L 3.93-5.22 L (test code = 761) HEMOGLOBIN (BEAKER) (test code = 9.6 GM/DL 11.2-15.7 L 410) HEMATOCRIT (BEAKER) (test code = 29.8 % 34.1-44.9 L 411) MEAN CORPUSCULAR VOLUME (BEAKER) 92.8 fL 79.4-94.8 (test code = 753) MEAN CORPUSCULAR HEMOGLOBIN 29.9 pg 25.6-32.2 (BEAKER) (test code = 751) MEAN CORPUSCULAR HEMOGLOBIN CONC 32.2 GM/DL 32.2-35.5 (BEAKER) (test code = 752) RED CELL DISTRIBUTION WIDTH 13.3 % 11.7-14.4 (BEAKER) (test code = 412) PLATELET COUNT (BEAKER) (test 451 K/CU MM 150-450 H code = 756) MEAN PLATELET VOLUME (BEAKER) 9.3 fL 9.4-12.3 L (test code = 754) NUCLEATED RED BLOOD CELLS 0 /100 WBC 0-0 (BEAKER) (test code = 413) NEUTROPHILS RELATIVE PERCENT 70 % (BEAKER) (test code = 429) LYMPHOCYTES RELATIVE PERCENT 21 % (BEAKER) (test code = 430) MONOCYTES RELATIVE PERCENT 5 % (BEAKER) (test code = 431) EOSINOPHILS RELATIVE PERCENT 2 % (BEAKER) (test code = 432) BASOPHILS RELATIVE PERCENT 0 % (BEAKER) (test code = 437) NEUTROPHILS ABSOLUTE COUNT 4.36 K/ L 1.56-6.13 (BEAKER) (test code = 670) LYMPHOCYTES ABSOLUTE COUNT 1.34 K/ L 1.18-3.74 (BEAKER) (test code = 414) MONOCYTES ABSOLUTE COUNT (BEAKER) 0.34 K/ L 0.24-0.36 (test code = 415) EOSINOPHILS ABSOLUTE COUNT 0.15 K/ L 0.04-0.36 (BEAKER) (test code = 416) BASOPHILS ABSOLUTE COUNT (BEAKER) 0.02 K/ L 0.01-0.08 (test code = 417) IMMATURE GRANULOCYTES-RELATIVE 1 % 0-1 PERCENT (BEAKER) (test code = 2801) POCT-GLUCOSE [id number] 00:14:41 Test Item Value Reference Range Interpretation Comments POC-GLUCOSE METER 73 mg/dL 70-110 : TESTED A T [facility] 6720 ([facility]) (test code = [facility], 1538) [address]: Public Housing Manager/Techni chandni ID = [id number] for MORGAN KAISER POCT-GLUCOSE [id number] 19:13:03 Test Item Value Reference Range Interpretation Comments POC-GLUCOSE METER 118 mg/dL 70-110 H : TESTED A T [facility] 6720 ([facility]) (test code = [facility], 1538) [address]: Public Housing Manager/Techni chandni ID = [id number] for BAILEY BANERJEE POCT-GLUCOSE [id number] 18:10:02 Test Item Value Reference Range Interpretation Comments POC-GLUCOSE METER 50 mg/dL 70-110 L : Notified RN/MD: TESTED ([facility]) (test code = [facility] 6720 [facility] 1538) [facility], [address]: Public Housing Manager/Techni chandni ID = [id number] for BAILEY AMEZQUITA BLOOD [id number] 14:01:21 Test Item Value Reference Range Interpretation Comments CULTURE (BEAKER) (test No growth in 5 days code = 1095) BLOOD [id number] 14:01:21 Test Item Value Reference Range Interpretation Comments CULTURE (BEAKER) (test No growth in 5 days code = 1095) The specimen volume collected for this blood culture was below the optimum (10 mL per bottle or 20 mL total). Use of lower volumes may adversely affect recovery and/or detection times of some organisms.POCT-GLUCOSE [id number] 14:00:22 Test Item Value Reference Range Interpretation Comments POC-GLUCOSE METER 112 mg/dL 70-110 H : TESTED A T [facility] 6720 ([facility]) (test code = [facility], 1538) [address]: Public Housing Manager/Techni chandni ID = [id number] for YAZAN ALLAN, TIKEYA POCT-GLUCOSE [id number] 12:19:36 Test Item Value Reference Range Interpretation Comments POC-GLUCOSE METER 45 mg/dL 70-110 L : Notified RN/MD: TESTED ([facility]) (test code = [facility] [place], [address]: Public Housing Manager/Techni chandni ID = [id number] for MARYSOL D, TIKEYA POCT-GLUCOSE [id number] 06:45:30 Test Item Value Reference Range Interpretation Comments POC-GLUCOSE METER 145 mg/dL 70-110 H : TESTED A T [facility] 6720 ([facility]) (test code = T[place] Dickey [facility], 1538) [address]: Public Housing Manager/Techni chandni ID = [id number] for [place] RELA, CHALO [id number] 04:55:32 Test Item Value Reference Range Interpretation Comments [facility] (test code = 122 mg/dL 540) TRIGLYCERIDE REFERENCE RANGELow Risk <150Borderline Risk 150-199High Risk 200-499Very High Risk>=500Operator ID - DBRAD, CHEST, 1 VIEW, NON DEPT 2021-05-12 04:06:00Reason for exam:->intubated [facility] : 1975 Sex: FFINAL REPORT RAD, CHEST, 1 VIEW, NON DEPT INDICATION: intubated COMPARISON: Prior day's exam FINDINGS: Portable frontal view of the chest. IMPRESSION: Support Lines: Stable. Lungs and pleura: Unchanged airspace and pleural opacities. No pneumothorax.Heart and mediastinum: Stable contours. Additional findings: None. Signed: Melissa Abrahameport Verified Date/Time: 05/12/2021 04:06:50 [id number] 03:54:51 Test Item Value Reference Range Interpretation Comments PHOSPHORUS (BEAKER) (test code = 2.9 mg/dL 2.3-4.7 604) Public Housing Manager ID - KELSIE MHEPATIC FUNCTION [id number] 03:54:51 Test Item Value Reference Range Interpretation Comments TOTAL PROTEIN (BEAKER) (test code = 5.4 gm/dL 6.0-8.3 L 770) ALBUMIN (BEAKER) (test code = 1145) 3.1 g/dL 3.5-5.0 L BILIRUBIN TOTAL (BEAKER) (test code 0.1 mg/dL 0.2-1.2 L = 377) BILIRUBIN DIRECT (BEAKER) (test 0.1 mg/dL 0.1-0.5 code = 706) ALKALINE PHOSPHATASE (BEAKER) (test 67 U/L 40-150 code = 346) AST (SGOT) (BEAKER) (test code = 30 U/L 5-34 353) ALT (SGPT) (BEAKER) (test code = 17 U/L 6-55 347) Public Housing Manager ID - KELSIE MBASIC METABOLIC [id number] 03:54:50 Test Item Value Reference Range Interpretation Comments SODIUM (BEAKER) 141 meq/L 136-145 (test code = 381) POTASSIUM (BEAKER) 4.1 meq/L 3.5-5.1 (test code = 379) CHLORIDE (BEAKER) 109 meq/L 98-107 H (test code = 382) CO2 (BEAKER) (test 27 meq/L 22-29 code = 355) BLOOD UREA NITROGEN 19 mg/dL 7-21 (BEAKER) (test code = 354) CREATININE (BEAKER) 0.55 mg/dL 0.57-1.25 L (test code = 358) GLUCOSE RANDOM 143 mg/dL 70-105 H (BEAKER) (test code = 652) CALCIUM (BEAKER) 8.5 mg/dL 8.4-10.2 (test code = 697) EGFR (BEAKER) (test 120 mL/min/1.73 ESTIM ATED GFR IS code = 1092) sq m NOT ACCURATE CREATININE CLEARANCE IN PREDICTING GLOMERULAR FILTRATION RATE . ESTIMATED GFR I S NOT APPLICABLE FOR DIALYSIS PATIEN TS. Public Housing Manager ID - KELSIE [id number] 03:54:50 Test Item Value Reference Range Interpretation Comments MAGNESIUM (BEAKER) (test code = 1.9 mg/dL 1.6-2.6 627) Public Housing Manager ID - KELSIE MBLOOD GAS, [id number] 03:23:50 Test Item Value Reference Range Interpretation Comments PH ARTERIAL (BEAKER) (test code = 7.44 7.35-7.45 383) PCO2 ARTERIAL (BEAKER) (test code 41 mm Hg 35-45 = 384) PO2 ARTERIAL (BEAKER) (test code = 190 mm Hg 80-90 H 385) O2 SATURATION ARTERIAL (BEAKER) 99.3 % 96.0-97.0 H (test code = 386) HCO3 ARTERIAL (BEAKER) (test code 27 mmol/L 21-29 = 388) BASE EXCESS ARTERIAL (BEAKER) 3.0 mmol/L -2.0-3.0 (test code = 387) PATIENT TEMPERATURE (BEAKER) (test 37.5 code = 1818) FIO2 (BEAKER) (test code = 1819) 40.0 CBC W/PLT COUNT & AUTO [id number] 03:07:56 Test Item Value Reference Range Interpretation Comments WHITE BLOOD CELL COUNT (BEAKER) 5.1 K/ L 3.5-10.5 (test code = 775) RED BLOOD CELL COUNT (BEAKER) 2.89 M/ L 3.93-5.22 L (test code = 761) HEMOGLOBIN (BEAKER) (test code = 8.6 GM/DL 11.2-15.7 L 410) HEMATOCRIT (BEAKER) (test code = 27.8 % 34.1-44.9 L 411) MEAN CORPUSCULAR VOLUME (BEAKER) 96.2 fL 79.4-94.8 H (test code = 753) MEAN CORPUSCULAR HEMOGLOBIN 29.8 pg 25.6-32.2 (BEAKER) (test code = 751) MEAN CORPUSCULAR HEMOGLOBIN CONC 30.9 GM/DL 32.2-35.5 L (BEAKER) (test code = 752) RED CELL DISTRIBUTION WIDTH 13.9 % 11.7-14.4 (BEAKER) (test code = 412) PLATELET COUNT (BEAKER) (test 366 K/CU MM 150-450 code = 756) MEAN PLATELET VOLUME (BEAKER) 9.2 fL 9.4-12.3 L (test code = 754) NUCLEATED RED BLOOD CELLS 0 /100 WBC 0-0 (BEAKER) (test code = 413) NEUTROPHILS RELATIVE PERCENT 47 % (BEAKER) (test code = 429) LYMPHOCYTES RELATIVE PERCENT 41 % (BEAKER) (test code = 430) MONOCYTES RELATIVE PERCENT 6 % (BEAKER) (test code = 431) EOSINOPHILS RELATIVE PERCENT 5 % (BEAKER) (test code = 432) BASOPHILS RELATIVE PERCENT 0 % (BEAKER) (test code = 437) NEUTROPHILS ABSOLUTE COUNT 2.38 K/ L 1.56-6.13 (BEAKER) (test code = 670) LYMPHOCYTES ABSOLUTE COUNT 2.07 K/ L 1.18-3.74 (BEAKER) (test code = 414) MONOCYTES ABSOLUTE COUNT (BEAKER) 0.29 K/ L 0.24-0.36 (test code = 415) EOSINOPHILS ABSOLUTE COUNT 0.25 K/ L 0.04-0.36 (BEAKER) (test code = 416) BASOPHILS ABSOLUTE COUNT (BEAKER) 0.02 K/ L 0.01-0.08 (test code = 417) IMMATURE GRANULOCYTES-RELATIVE 1 % 0-1 PERCENT (BEAKER) (test code = 2801) POCT-GLUCOSE [id number] 21:18:52 Test Item Value Reference Range Interpretation Comments POC-GLUCOSE METER 128 mg/dL 70-110 H : TESTED A T [facility] 6720 (BEAKER) (test code = [facility], 1538) [address]: Public Housing Manager/Techni chandni ID = [id number] for MORGAN LAZCANO POCT-GLUCOSE [id number] 17:33:11 Test Item Value Reference Range Interpretation Comments POC-GLUCOSE METER 93 mg/dL 70-110 : TESTED A T [facility] 6720 (BEAKER) (test code = [facility], 1538) [address]: Public Housing Manager/Techni chandni ID = [id number] for LLOY D, TIKEYA SUN TITER AND [id number] 13:37:14 Test Item Value Reference Range Interpretation Comments SUN TITER (BEAKER) (test code = :40 1541) SUN PATTERN (BEAKER) (test code = Homogeneous 1781) ANTI-NUCLEAR ANTIBODY (SUN)2021-05-11 13:36:59 Test Item Value Reference Range Interpretation Comments ANTI-NUCLEAR ANTIBODY (SUN) (BEAKER) Positive Negative A (test code = 418) Test performed by IFA method.POCT-GLUCOSE [id number] 12:34:21 Test Item Value Reference Range Interpretation Comments POC-GLUCOSE METER 137 mg/dL 70-110 H : Notified RN/MD: ([facility]) (test code = TESTED AT [place] [address]) [facility], [address]: Public Housing Manager/Techni chandni ID = [id number] for BAILEY BANERJEE POCT-GLUCOSE [id number] 11:43:05 Test Item Value Reference Range Interpretation Comments POC-GLUCOSE METER 44 mg/dL 70-110 L : Notified RN/MD: TESTED (HARJEETAKER) (test code = AT [place] [address]) [facility], [address]: Public Housing Manager/Techni chandni ID = [id number] for BAILEY AMEZQUITA HEPATIC FUNCTION [id number] 07:37:14 Test Item Value Reference Range Interpretation Comments TOTAL PROTEIN (BEAKER) (test code = 5.6 gm/dL 6.0-8.3 L 770) ALBUMIN (BEAKER) (test code = 1145) 2.9 g/dL 3.5-5.0 L BILIRUBIN TOTAL (BEAKER) (test code 0.1 mg/dL 0.2-1.2 L = 377) BILIRUBIN DIRECT (BEAKER) (test 0.1 mg/dL 0.1-0.5 code = 706) ALKALINE PHOSPHATASE (BEAKER) (test 70 U/L 40-150 code = 346) AST (SGOT) (BEAKER) (test code = 24 U/L 5-34 353) ALT (SGPT) (BEAKER) (test code = 16 U/L 6-55 347) Public Housing Manager ID - ADMINPOCT-GLUCOSE [id number] 06:27:22 Test Item Value Reference Range Interpretation Comments POC-GLUCOSE METER 167 mg/dL 70-110 H : TESTED A T [facility] (BEAKER) (test code = [place], 1538) [address]: Public Housing Manager/Techni chandni ID = [id number] for Pamela Rodriguez [id number] 05:55:53 Test Item Value Reference Range Interpretation Comments PHOSPHORUS (BEAKER) (test code = 2.8 mg/dL 2.3-4.7 604) Public Housing Manager ID - [id number] 05:55:52 Test Item Value Reference Range Interpretation Comments MAGNESIUM (BEAKER) (test code = 2.1 mg/dL 1.6-2.6 627) Public Housing Manager ID - ADMINBASIC METABOLIC [id number] 05:55:51 Test Item Value Reference Range Interpretation Comments SODIUM (BEAKER) 143 meq/L 136-145 (test code = 381) POTASSIUM (BEAKER) 4.1 meq/L 3.5-5.1 (test code = 379) CHLORIDE (BEAKER) 110 meq/L 98-107 H (test code = 382) CO2 (BEAKER) (test 28 meq/L 22-29 code = 355) BLOOD UREA NITROGEN 19 mg/dL 7-21 (BEAKER) (test code = 354) CREATININE (BEAKER) 0.55 mg/dL 0.57-1.25 L (test code = 358) GLUCOSE RANDOM 188 mg/dL 70-105 H (BEAKER) (test code = 652) CALCIUM (BEAKER) 8.3 mg/dL 8.4-10.2 L (test code = 697) EGFR (BEAKER) (test 120 mL/min/1.73 ESTIM ATED GFR IS code = 1092) sq m NOT ACCURATE CREATININE CLEARANCE IN PREDICTING GLOMERULAR FILTRATION RATE . ESTIMATED GFR I S NOT APPLICABLE FOR DIALYSIS PATIEN TS. Public Housing Manager ID - ADMINBLOOD GAS, [id number] 05:31:35 Test Item Value Reference Range Interpretation Comments PH ARTERIAL (BEAKER) (test code = 7.46 7.35-7.45 H 383) PCO2 ARTERIAL (BEAKER) (test code 41 mm Hg 35-45 = 384) PO2 ARTERIAL (BEAKER) (test code = 185 mm Hg 80-90 H 385) O2 SATURATION ARTERIAL (BEAKER) 99.3 % 96.0-97.0 H (test code = 386) HCO3 ARTERIAL (BEAKER) (test code 29 mmol/L 21-29 = 388) BASE EXCESS ARTERIAL (BEAKER) 4.4 mmol/L -2.0-3.0 H (test code = 387) PATIENT TEMPERATURE (BEAKER) (test 37.0 code = 1818) FIO2 (BEAKER) (test code = 1819) 40.0 LACTIC ACID, [id number] 05:21:57 Test Item Value Reference Range Interpretation Comments LACTATE BLOOD ARTERIAL (2) 1.1 mmol/L 0.5-2.2 (BEAKER) (test code = 2874) Public Housing Manager ID - ADMINCBC W/PLT COUNT & AUTO [id number] 05:17:54 Test Item Value Reference Range Interpretation Comments WHITE BLOOD CELL COUNT (BEAKER) 5.5 K/ L 3.5-10.5 (test code = 775) RED BLOOD CELL COUNT (BEAKER) 3.06 M/ L 3.93-5.22 L (test code = 761) HEMOGLOBIN (BEAKER) (test code = 9.1 GM/DL 11.2-15.7 L 410) HEMATOCRIT (BEAKER) (test code = 29.2 % 34.1-44.9 L 411) MEAN CORPUSCULAR VOLUME (BEAKER) 95.4 fL 79.4-94.8 H (test code = 753) MEAN CORPUSCULAR HEMOGLOBIN 29.7 pg 25.6-32.2 (BEAKER) (test code = 751) MEAN CORPUSCULAR HEMOGLOBIN CONC 31.2 GM/DL 32.2-35.5 L (BEAKER) (test code = 752) RED CELL DISTRIBUTION WIDTH 14.0 % 11.7-14.4 (BEAKER) (test code = 412) PLATELET COUNT (BEAKER) (test 439 K/CU MM 150-450 code = 756) MEAN PLATELET VOLUME (BEAKER) 9.5 fL 9.4-12.3 (test code = 754) NUCLEATED RED BLOOD CELLS 0 /100 WBC 0-0 (BEAKER) (test code = 413) NEUTROPHILS RELATIVE PERCENT 56 % (BEAKER) (test code = 429) LYMPHOCYTES RELATIVE PERCENT 34 % (BEAKER) (test code = 430) MONOCYTES RELATIVE PERCENT 5 % (BEAKER) (test code = 431) EOSINOPHILS RELATIVE PERCENT 5 % (BEAKER) (test code = 432) BASOPHILS RELATIVE PERCENT 0 % (BEAKER) (test code = 437) NEUTROPHILS ABSOLUTE COUNT 3.05 K/ L 1.56-6.13 (BEAKER) (test code = 670) LYMPHOCYTES ABSOLUTE COUNT 1.84 K/ L 1.18-3.74 (BEAKER) (test code = 414) MONOCYTES ABSOLUTE COUNT (BEAKER) 0.27 K/ L 0.24-0.36 (test code = 415) EOSINOPHILS ABSOLUTE COUNT 0.27 K/ L 0.04-0.36 (BEAKER) (test code = 416) BASOPHILS ABSOLUTE COUNT (BEAKER) 0.02 K/ L 0.01-0.08 (test code = 417) IMMATURE GRANULOCYTES-RELATIVE 1 % 0-1 PERCENT (BEAKER) (test code = 2801) RAD, CHEST, 1 VIEW, NON [id number] 02:44:00Reason for exam:->intubated [facility] : 1975 Sex: FFINAL REPORT CLINICAL INDICATION: Support lines. Comparison: 05/10/2021 The cardiomediastinal contours are stable. There is no focal consolidation, pneumothorax, large pleural effusion or evidence of overt pulmonary edema. The tip of an endotracheal tube is in position above the familia at the level of the inferior clavicular heads. A feeding tube traverses examination to the upper abdomen. Signed: Sebas Evanseport Verified Date/Time: 05/11/2021 02:44:52 POCT- GLUCOSE [id number] 00:49:32 Test Item Value Reference Range Interpretation Comments POC-GLUCOSE METER 168 mg/dL 70-110 H : TESTED A T [facility] 6720 (BEAKER) (test code = [facility], 1538) 37458: Public Housing Manager/Techni chandni ID = [id number] for Pamela Rodriguez POCT-GLUCOSE [id number] 21:49:58 Test Item Value Reference Range Interpretation Comments POC-GLUCOSE METER 85 mg/dL 70-110 : TESTED A T [facility] 6720 (BEAKER) (test code = [facility], 1538) 22971: Public Housing Manager/Techni chandni ID = [id number] for Oh Chowdary POCT-GLUCOSE [id number] 21:20:40 Test Item Value Reference Range Interpretation Comments POC-GLUCOSE METER 52 mg/dL 70-110 L : TESTED A T [facility] 6720 (BEAKER) (test code = [facility], 1538) 91215: Public Housing Manager/Techni chandni ID = [id number] for Oh Chowdary [id number] 17:36:32 Test Item Value Reference Range Interpretation Comments MAGNESIUM (BEAKER) (test code = 1.9 mg/dL 1.6-2.6 627) Public Housing Manager ID - [id number] 17:36:32 Test Item Value Reference Range Interpretation Comments PHOSPHORUS (BEAKER) (test code = 3.7 mg/dL 2.3-4.7 604) Public Housing Manager ID - DBBASIC METABOLIC [id number] 17:36:31 Test Item Value Reference Range Interpretation Comments SODIUM (BEAKER) 144 meq/L 136-145 (test code = 381) POTASSIUM (BEAKER) 3.7 meq/L 3.5-5.1 (test code = 379) CHLORIDE (BEAKER) 110 meq/L 98-107 H (test code = 382) CO2 (BEAKER) (test 27 meq/L 22-29 code = 355) BLOOD UREA NITROGEN 18 mg/dL 7-21 (BEAKER) (test code = 354) CREATININE (BEAKER) 0.65 mg/dL 0.57-1.25 (test code = 358) GLUCOSE RANDOM 173 mg/dL 70-105 H (BEAKER) (test code = 652) CALCIUM (BEAKER) 8.6 mg/dL 8.4-10.2 (test code = 697) EGFR (BEAKER) (test 99 mL/min/1.73 ESTIMA CHANDLER GFR IS code = 1092) sq m NOT ACCURATE CREATININE CLEARANCE IN PREDICTING GLOMERULAR FILTRATION RATE . ESTIMATED GFR I S NOT APPLICABLE FOR DIALYSIS PATIEN TS. Public Housing Manager ID - DBPOCT-GLUCOSE [id number] 17:08:09 Test Item Value Reference Range Interpretation Comments POC-GLUCOSE METER 160 mg/dL 70-110 H : TESTED A T [facility] 6720 (BEAKER) (test code = [facility], 1538) 47273: Public Housing Manager/Techni chandni ID = [id number] for Laura Márquez CSF CULTURE + GRAM [id number] 16:07:02 Test Item Value Reference Range Interpretation Comments CULTURE (BEAKER) (test code No growth = 1095) GRAM STAIN RESULT (BEAKER) <1+ WBCs (test code = 1123) GRAM STAIN RESULT (BEAKER) No organisms seen (test code = 84626) POCT-GLUCOSE [id number] 13:57:25 Test Item Value Reference Range Interpretation Comments POC-GLUCOSE METER 176 mg/dL 70-110 H : TESTED A T [facility] 6720 (BEAKER) (test code = [facility], 1538) 64020: Public Housing Manager/Techni chandni ID = [id number] for An Marina stephens [id number] 12:02:27 Test Item Value Reference Range Interpretation Comments TRIGLYCERIDES (BEAKER) (test code = 89 mg/dL 540) TRIGLYCERIDE REFERENCE RANGELow Risk <150Borderline Risk 150-199High Risk 200-499Very High Risk>=500Operator ID - LETY [id number] 11:39:08 Test Item Value Reference Range Interpretation Comments AMMONIA (BEAKER) (test code = 348) 48 mol/L 18-72 Public Housing Manager ID - LETY LPOCT-GLUCOSE [id number] 11:29:04 Test Item Value Reference Range Interpretation Comments POC-GLUCOSE METER 129 mg/dL 70-110 H : TESTED A T [facility] 6720 (BEAKER) (test code = [facility], 1538) 50306: Public Housing Manager/Techni chandni ID = [id number] for Laura Márquez SPUTUM CULTURE + GRAM [id number] 09:22:05 Test Item Value Reference Range Interpretation Comments CULTURE A 1+ Beta-hemolyt ic (BEAKER) (test streptococcus group code = 1095) B, by serologic al grouping GRAM STAIN 2+ WBCs RESULT (BEAKER) (test code = 1123) GRAM STAIN 0-5 epithelial RESULT (BEAKER) cells (test code = 815617) GRAM STAIN No organisms seen RESULT (BEAKER) (test code = 118155) 1+ Normal respiratory neha [id number] 08:53:12 Test Item Value Reference Range Interpretation Comments LIPASE (BEAKER) (test code = 749) 6 U/L 8-78 L Public Housing Manager ID - LETY LHEPATIC FUNCTION [id number] 08:53:11 Test Item Value Reference Range Interpretation Comments TOTAL PROTEIN (BEAKER) (test code = 5.4 gm/dL 6.0-8.3 L 770) ALBUMIN (BEAKER) (test code = 1145) 2.9 g/dL 3.5-5.0 L BILIRUBIN TOTAL (BEAKER) (test code 0.2 mg/dL 0.2-1.2 = 377) BILIRUBIN DIRECT (BEAKER) (test 0.1 mg/dL 0.1-0.5 code = 706) ALKALINE PHOSPHATASE (BEAKER) (test 71 U/L 40-150 code = 346) AST (SGOT) (BEAKER) (test code = 24 U/L 5-34 353) ALT (SGPT) (BEAKER) (test code = 18 U/L 6-55 347) Public Housing Manager ID - SARAHAYA LRAD, CHEST, 1 VIEW, NON [id number] 08:18:00Reason for exam:->intubated [facility] 1975 Sex: FFINAL REPORT RAD, CHEST, 1 VIEW, NON DEPT INDICATION: intubated COMPARISON: Prior day's exam FINDINGS: Portable frontal view of the chest. IMPRESSION: Support Lines: ET tube tip is 2 cm superior to the familia. Feeding tube descends below the diaphragm. Lungs and pleura: Presumed skinfold overlying the right mid axillary line. No significant pneumothorax. Heart and mediastinum: Stable contours. Additional findings: None. Signed: Tere Plascencia Verified Date/Time: 05/10/2021 08:18:19 Reading Location: [facility] Radiology Reading Room POCT-GLUCOSE [id number] 06:17:46 Test Item Value Reference Range Interpretation Comments POC-GLUCOSE METER 116 mg/dL 70-110 H : TESTED A T [facility] 6720 (BEAKER) (test code = [facility], 1538) 32747: Public Housing Manager/Techni chandni ID = [id number] for Pamela Rodriguez [id number] 05:34:38 Test Item Value Reference Range Interpretation Comments MAGNESIUM (BEAKER) (test code = 1.9 mg/dL 1.6-2.6 627) Public Housing Manager ID - LETY [id number] 05:34:38 Test Item Value Reference Range Interpretation Comments PHOSPHORUS (BEAKER) (test code = 3.0 mg/dL 2.3-4.7 604) Public Housing Manager ID - LETY LBASIC METABOLIC [id number] 05:34:37 Test Item Value Reference Range Interpretation Comments SODIUM (BEAKER) 146 meq/L 136-145 H (test code = 381) POTASSIUM (BEAKER) 3.6 meq/L 3.5-5.1 (test code = 379) CHLORIDE (BEAKER) 113 meq/L 98-107 H (test code = 382) CO2 (BEAKER) (test 26 meq/L 22-29 code = 355) BLOOD UREA NITROGEN 23 mg/dL 7-21 H (BEAKER) (test code = 354) CREATININE (BEAKER) 0.55 mg/dL 0.57-1.25 L (test code = 358) GLUCOSE RANDOM 121 mg/dL 70-105 H (BEAKER) (test code = 652) CALCIUM (BEAKER) 8.7 mg/dL 8.4-10.2 (test code = 697) EGFR (BEAKER) (test 120 mL/min/1.73 ESTIM ATED GFR IS code = 1092) sq m NOT ACCURATE CREATININE CLEARANCE IN PREDICTING GLOMERULAR FILTRATION RATE . ESTIMATED GFR I S NOT APPLICABLE FOR DIALYSIS PATIEN TS. Public Housing Manager ID - PIAYA [id number] 05:21:26 Test Item Value Reference Range Interpretation Comments PROCALCITONIN (BEAKER) (test code 2.48 ng/mL <0.05 H = 3036) SEPSIS RISK (ng/mL)Low: 0.05-0.50Intermediate: 0.51-2.00High: >=2.01CBC W/PLT COUNT & AUTO [id number] 05:09:32 Test Item Value Reference Range Interpretation Comments WHITE BLOOD CELL COUNT (BEAKER) 5.8 K/ L 3.5-10.5 (test code = 775) RED BLOOD CELL COUNT (BEAKER) 2.98 M/ L 3.93-5.22 L (test code = 761) HEMOGLOBIN (BEAKER) (test code = 8.9 GM/DL 11.2-15.7 L 410) HEMATOCRIT (BEAKER) (test code = 28.3 % 34.1-44.9 L 411) MEAN CORPUSCULAR VOLUME (BEAKER) 95.0 fL 79.4-94.8 H (test code = 753) MEAN CORPUSCULAR HEMOGLOBIN 29.9 pg 25.6-32.2 (BEAKER) (test code = 751) MEAN CORPUSCULAR HEMOGLOBIN CONC 31.4 GM/DL 32.2-35.5 L (BEAKER) (test code = 752) RED CELL DISTRIBUTION WIDTH 13.9 % 11.7-14.4 (BEAKER) (test code = 412) PLATELET COUNT (BEAKER) (test 353 K/CU MM 150-450 code = 756) MEAN PLATELET VOLUME (BEAKER) 9.7 fL 9.4-12.3 (test code = 754) NUCLEATED RED BLOOD CELLS 0 /100 WBC 0-0 (BEAKER) (test code = 413) NEUTROPHILS RELATIVE PERCENT 61 % (BEAKER) (test code = 429) LYMPHOCYTES RELATIVE PERCENT 30 % (BEAKER) (test code = 430) MONOCYTES RELATIVE PERCENT 6 % (BEAKER) (test code = 431) EOSINOPHILS RELATIVE PERCENT 3 % (BEAKER) (test code = 432) BASOPHILS RELATIVE PERCENT 0 % (BEAKER) (test code = 437) NEUTROPHILS ABSOLUTE COUNT 3.52 K/ L 1.56-6.13 (BEAKER) (test code = 670) LYMPHOCYTES ABSOLUTE COUNT 1.72 K/ L 1.18-3.74 (BEAKER) (test code = 414) MONOCYTES ABSOLUTE COUNT (BEAKER) 0.32 K/ L 0.24-0.36 (test code = 415) EOSINOPHILS ABSOLUTE COUNT 0.19 K/ L 0.04-0.36 (BEAKER) (test code = 416) BASOPHILS ABSOLUTE COUNT (BEAKER) 0.02 K/ L 0.01-0.08 (test code = 417) IMMATURE GRANULOCYTES-RELATIVE 0 % 0-1 PERCENT (BEAKER) (test code = 2801) BLOOD GAS, [id number] 04:33:36 Test Item Value Reference Range Interpretation Comments PH ARTERIAL (BEAKER) (test code = 7.48 7.35-7.45 H 383) PCO2 ARTERIAL (BEAKER) (test code 38 mm Hg 35-45 = 384) PO2 ARTERIAL (BEAKER) (test code = 179 mm Hg 80-90 H 385) O2 SATURATION ARTERIAL (BEAKER) 99.3 % 96.0-97.0 H (test code = 386) HCO3 ARTERIAL (BEAKER) (test code 27 mmol/L 21-29 = 388) BASE EXCESS ARTERIAL (BEAKER) 3.3 mmol/L -2.0-3.0 H (test code = 387) PATIENT TEMPERATURE (BEAKER) (test 37.0 code = 1818) FIO2 (BEAKER) (test code = 1819) 40.0 POCT-GLUCOSE [id number] 00:36:35 Test Item Value Reference Range Interpretation Comments POC-GLUCOSE METER 171 mg/dL 70-110 H : [facility] (YOHANA[facility] (test code = [facility], 1538) 2100[address]: Public Housing Manager/Techni chandni ID = [id number] for Pamela Rodriguez POCT-GLUCOSE [id number] 21:37:14 Test Item Value Reference Range Interpretation Comments POC-GLUCOSE METER 124 mg/dL 70-110 H : [facility] (YOHANA[facility] (test code = [facility] [place], 1538) 95986: Public Housing Manager/Techni chandni ID = [id number] for ROVERTO EPPERSON MR, BRAIN, WITHOUT [id number] 20:46:00Unlisted Reason for Exam - Click Yes and Enter Reason Below->No [facility] 1975 Sex: FFINAL REPORT MR, BRAIN, WITHOUT CONTRAST INDICATION: Altered mental status TECHNIQUE: Multiplanar, multisequence MR imaging of the brain without intravenous contrast. COMPARISON: CT 05/08/2021 FINDINGS: Intracranial: No acute intracranial hemorrhage. No restricted diffusionto suggest acute infarct. No mass effect. No hydrocephalus. Visualized intracranial flow voids are of normal course and caliber. Sinuses: No evidence of sinusitis. Mastoids are clear. Orbits: Globes are intact. Calvarium \\T\\ scalp: Unremarkable. IMPRESSION:No acute intracranial abnormality. Signed: Sherie Richey Verified Date/Time: 05/09/2021 20:46:27 POCT-GLUCOSE [id number] 20:25:29 Test Item Value Reference Range Interpretation Comments POC-GLUCOSE METER 123 mg/dL 70-110 H : TESTED A T [facility] 6720 (CanvaAKER) (test code = [facility], 1538) 25615: Public Housing Manager/Techni chandni ID = [id number] for Pamela Rodriguez POCT-GLUCOSE [id number] 19:04:46 Test Item Value Reference Range Interpretation Comments POC-GLUCOSE METER 62 mg/dL 70-110 L : TESTED A T [facility] 6720 (BEAKER) (test code = [facility], 1538) 13748: Public Housing Manager/Techni chandni ID = [id number] for Marina Rivera HSV 1/2 PCR, [id number] 14:46:09 Test Item Value Reference Range Interpretation Comments HSV BY PCR (CanvaAKER) (test code = NEGATIVE NEGATIVE 334) Herpes Simplex Virus (HSV) not detected.These assays were performed by real-time PCR utilizing fluorogenic hydrolysis probe technology for the detection of Herpes Simplex Virus-1 and/or Herpes Simplex Virus-2 in approved specimens. A 154 base pair region of the HSV-1 and HSV-2 UL5 gene is amplified, and typing is achieved by using type specific probes. An internal control is used to confirm PCR amplification. Genetic variation and other factors can affect the accuracy of nucleic acid testing; therefore, the results should be interpreted in light of clinical data.This test was developed and its performance characteristics determined by the [facility] Pathology Department, Section of Molecular Pathology. It has not been cleared or approved by the U.S. Food and Drug Administration (FDA), as FDA approval is not required for clinical use of the test. Validation was done as required by the Clinical Laboratory Amendments of 1988.[id number] 13:54:41 Test Item Value Reference Range Interpretation Comments POTASSIUM (BEAKER) (test code = 3.5 meq/L 3.5-5.1 379) Public Housing Manager ID - LETY [id number] 13:54:40 Test Item Value Reference Range Interpretation Comments MAGNESIUM (BEAKER) (test code = 2.1 mg/dL 1.6-2.6 627) Public Housing Manager ID - LETY LPOCT-GLUCOSE [id number] 11:30:43 Test Item Value Reference Range Interpretation Comments POC-GLUCOSE METER 193 mg/dL 70-110 H : TESTED A T [facility] 6720 (BEAKER) (test code = [place], 1538) 368[address]: Public Housing Manager/Techni chandni ID = [id number] for An Marina stephens MISCELLANEOUS LAB [id number] 10:47:43 Test Item Value Reference Range Interpretation Comments SCAN RESULT (test code = See scanned report [id number]) See scanned reportPOCT-GLUCOSE [id number] 06:04:34 Test Item Value Reference Range Interpretation Comments POC-GLUCOSE METER 205 mg/dL 70-110 H : TESTED A T [facility] 6720 (BEAKER) (test code = [facility], 1538) 37[address]: Public Housing Manager/Techni chandni ID = [id number] for ROVERTO EPPERSON [id number] 05:14:18 Test Item Value Reference Range Interpretation Comments PHOSPHORUS (BEAKER) (test code = 3.0 mg/dL 2.3-4.7 604) Public Housing Manager ID - LETY [id number] 05:14:17 Test Item Value Reference Range Interpretation Comments MAGNESIUM (BEAKER) (test code = 2.0 mg/dL 1.6-2.6 627) Public Housing Manager ID - LTEY LBASIC METABOLIC [id number] 05:14:16 Test Item Value Reference Range Interpretation Comments SODIUM (BEAKER) 147 meq/L 136-145 H (test code = 381) POTASSIUM (BEAKER) 3.6 meq/L 3.5-5.1 (test code = 379) CHLORIDE (BEAKER) 113 meq/L 98-107 H (test code = 382) CO2 (BEAKER) (test 27 meq/L 22-29 code = 355) BLOOD UREA NITROGEN 27 mg/dL 7-21 H (BEAKER) (test code = 354) CREATININE (BEAKER) 0.68 mg/dL 0.57-1.25 (test code = 358) GLUCOSE RANDOM 209 mg/dL 70-105 H (BEAKER) (test code = 652) CALCIUM (BEAKER) 9.3 mg/dL 8.4-10.2 (test code = 697) EGFR (BEAKER) (test 94 mL/min/1.73 ESTIMA CHANDLER GFR IS code = 1092) sq m NOT ACCURATE CREATININE CLEARANCE IN PREDICTING GLOMERULAR FILTRATION RATE . ESTIMATED GFR I S NOT APPLICABLE FOR DIALYSIS PATIEN TS. Public Housing Manager ID - PIAYA LRAD, CHEST, 1 VIEW, NON [id number] 05:05:00Reason for exam:->intubated [facility] : 1975 Sex: FFINAL REPORT RAD, CHEST, 1 VIEW, NON DEPT INDICATION: intubated COMPARISON: Prior day's exam FINDINGS: Portable frontal view of the chest. IMPRESSION: Support Lines: Stable. Lungs and pleura: No consolidation or effusion. No pneumothorax. Heart and mediastinum: Stable contours. Additional findings: None. Signed: Vance Abreu MDReport Verified Date/Time: 05/09/2021 05:05:32 VANCOMYCIN LEVEL, [id number] 05:00:50 Test Item Value Reference Range Interpretation Comments VANCOMYCIN TROUGH (BEAKER) (test 8.3 ug/mL 10.0-20.0 L code = 522) Public Housing Manager ID - PIAYA LBLOOD GAS, [id number] 04:50:20 Test Item Value Reference Range Interpretation Comments PH ARTERIAL (BEAKER) (test code = 7.44 7.35-7.45 383) PCO2 ARTERIAL (BEAKER) (test code 43 mm Hg 35-45 = 384) PO2 ARTERIAL (BEAKER) (test code = 212 mm Hg 80-90 H 385) O2 SATURATION ARTERIAL (BEAKER) 99.4 % 96.0-97.0 H (test code = 386) HCO3 ARTERIAL (BEAKER) (test code 28 mmol/L 21-29 = 388) BASE EXCESS ARTERIAL (BEAKER) 3.6 mmol/L -2.0-3.0 H (test code = 387) PATIENT TEMPERATURE (BEAKER) (test 38.2 code = 1818) FIO2 (BEAKER) (test code = 1819) 40.0 CBC W/PLT COUNT & AUTO [id number] 04:42:21 Test Item Value Reference Range Interpretation Comments WHITE BLOOD CELL COUNT (BEAKER) 9.8 K/ L 3.5-10.5 (test code = 775) RED BLOOD CELL COUNT (BEAKER) 3.39 M/ L 3.93-5.22 L (test code = 761) HEMOGLOBIN (BEAKER) (test code = 10.1 GM/DL 11.2-15.7 L 410) HEMATOCRIT (BEAKER) (test code = 30.8 % 34.1-44.9 L 411) MEAN CORPUSCULAR VOLUME (BEAKER) 90.9 fL 79.4-94.8 (test code = 753) MEAN CORPUSCULAR HEMOGLOBIN 29.8 pg 25.6-32.2 (BEAKER) (test code = 751) MEAN CORPUSCULAR HEMOGLOBIN CONC 32.8 GM/DL 32.2-35.5 (BEAKER) (test code = 752) RED CELL DISTRIBUTION WIDTH 14.1 % 11.7-14.4 (BEAKER) (test code = 412) PLATELET COUNT (BEAKER) (test 427 K/CU MM 150-450 code = 756) MEAN PLATELET VOLUME (BEAKER) 9.4 fL 9.4-12.3 (test code = 754) NUCLEATED RED BLOOD CELLS 0 /100 WBC 0-0 (BEAKER) (test code = 413) NEUTROPHILS RELATIVE PERCENT 75 % (BEAKER) (test code = 429) LYMPHOCYTES RELATIVE PERCENT 18 % (BEAKER) (test code = 430) MONOCYTES RELATIVE PERCENT 6 % (BEAKER) (test code = 431) EOSINOPHILS RELATIVE PERCENT 1 % (BEAKER) (test code = 432) BASOPHILS RELATIVE PERCENT 0 % (BEAKER) (test code = 437) NEUTROPHILS ABSOLUTE COUNT 7.33 K/ L 1.56-6.13 H (BEAKER) (test code = 670) LYMPHOCYTES ABSOLUTE COUNT 1.73 K/ L 1.18-3.74 (BEAKER) (test code = 414) MONOCYTES ABSOLUTE COUNT (BEAKER) 0.55 K/ L 0.24-0.36 H (test code = 415) EOSINOPHILS ABSOLUTE COUNT 0.07 K/ L 0.04-0.36 (BEAKER) (test code = 416) BASOPHILS ABSOLUTE COUNT (BEAKER) 0.04 K/ L 0.01-0.08 (test code = 417) IMMATURE GRANULOCYTES-RELATIVE 0 % 0-1 PERCENT (BEAKER) (test code = 2801) POCT-GLUCOSE [id number] 23:52:29 Test Item Value Reference Range Interpretation Comments POC-GLUCOSE METER 79 mg/dL 70-110 : TESTED A T [facility] 6720 (BEAKER) (test code = [facility], 1538) 48385: Public Housing Manager/Techni chandni ID = [id number] for ROVERTO CR POCT-GLUCOSE [id number] 17:29:30 Test Item Value Reference Range Interpretation Comments POC-GLUCOSE METER 145 mg/dL 70-110 H : TESTED A T [facility] 6720 (BEAKER) (test code = [facility], 1538) 94824: Public Housing Manager/Techni chandni ID = [id number] for Laura Márquez PROTEIN, [id number] 17:11:16 Test Item Value Reference Range Interpretation Comments PROTEIN CSF (BEAKER) (test code = 32 mg/dL 15-45 378) Public Housing Manager ID - CDPGLUCOSE, [id number] 17:11:15 Test Item Value Reference Range Interpretation Comments GLUCOSE CSF (BEAKER) (test code = 158 mg/dL 40-70 H 406) Public Housing Manager ID - CDPCSF CELL COUNT W/[id number] 16:14:46 Test Item Value Reference Range Interpretation Comments APPEARANCE CSF Clear Clear (BEAKER) (test code = 407) COLOR CSF (BEAKER) Colorless Colorless (test code = 408) RBC CSF (BEAKER) (test 9 /cu mm 0-5 H code = 409) WBC CSF (BEAKER) (test 1 /cu mm See_Comment [Aut omated message] code = 1020) The system [employer] generated this result transmitted ref erence range: <=5. The reference range was not used to int erpret this result as normal/abnormal . RBCS FRESH (BEAKER) 100% Fresh (test code = 1444) NUMBER OF CELLS DIFF'D 2 (BEAKER) (test code = 1591) NEUTROPHIL, CSF 0 % 0-5 (BEAKER) (test code = 324) LYMPHS CSF (BEAKER) 100 % 40-80 H (test code = 438) MONO/MACROPHAGE CSF 0 % 15-45 L (BEAKER) (test code = 439) EOSINOPHILS CSF 0 % See_Comment [Automated message] (BEAKER) (test code = The sy stem which 360) generated this result transmitted ref erence range: <=0. The reference range was not used to int erpret this result as normal/abnormal . BASO CSF (BEAKER) 0 % See_Comment [Automate d message] (test code = 440) The system which generated this result transmitted ref erence range: <=0. The reference range was not used to int erpret this result as normal/abnormal . TUBE NUMBER CSF 3 (BEAKER) (test code = 2678) STREP PNEUMONIAE [id number] 16:02:16 Test Item Value Reference Range Interpretation Comments STREP PNEUMONIAE Presumptive negative Presumptive negative ANTIGEN (BEAKER) for pneumococcal for pneumococcal (test code = 1615) meningitis - see pneumonia - see comment commen Presumptive negative for pneumococcal meningitis. Infection due to S. pneumoniae cannot be ruled outsince the antigen present in the sample may be below the detection limit of the test.[id number] 15:46:38 Test Item Value Reference Range Interpretation Comments POTASSIUM (BEAKER) (test code = 3.8 meq/L 3.5-5.1 379) Public Housing Manager ID - JHONATHAN [id number] 15:46:37 Test Item Value Reference Range Interpretation Comments MAGNESIUM (BEAKER) (test code = 2.3 mg/dL 1.6-2.6 627) Public Housing Manager ID - JHONATHAN WCT, CHEST WITH IV CONTRAST- PE TEST [id number] 13:03:00Unlisted Reason for Exam - Click Yes and Enter Reason Below->No [facility] : 1975 Sex: FFINAL REPORT TECHNIQUE: CT of the chest WITH intravenous contrast (pulmonary embolism protocol). Dose modulation, iterative reconstruction, and/or weight-based adjustment of the mA/kV was utilized to reduce the radiation dose to as low as reasonably achievable. INDICATION:45-year-old woman with PE suspected, intermediate probability, negative d-dimer. COMPARISON: Chest ra diograph from nine hours prior. FINDINGS: LINES/TUBES: Endotracheal tube terminates 1 cm above thecarina. Incompletely visualized feeding tube courses into the distal stomach. PULMONARY ARTERIES: Proximal to the bifurcation of the main pulmonary artery, the main pulmonary artery measures 2.6 cm in diameter. No definite filling defects within the pulmonary arteries. Linear hypodensities which project over the central pulmonary arteries likely represent artifact. LUNGS AND AIRWAYS: Suspected small amount of mucus/debris in scattered bilateral lower lobe bronchi. Patchy groundglass opacities in both lungs, most prominent in the lower lobes. PLEURA: Pleural spaces are clear. HEART AND MEDIASTINUM: V isualized thyroid gland is normal. Mildly prominent mediastinal lymph nodes measure up to 1.2 cm andare likely reactive. Heart and pericardium are within normal limits. Small amount of air in the leftbrachiocephalic vein, a vein in the right subclavian region, and the main pulmonary artery was likely introduced during vascular access. BONES AND SOFT TISSUES: Unremarkable. UPPER ABDOMEN: Unremarkable. IMPRESSION:No definite pulmonary embolus. Linear hypodensities which project over the central pulmonary arteries likely represent artifact. Small amount of mucus/debris in bilateral lower lobe bronchi and bilateral groundglass opacities, suspicious for aspiration or bronchopneumonia. Signed: Tai Negro Verified Date/Time: 05/08/2021 13:03:24 Reading Location: [facility] C013 CT Body Reading Room POCT-GLUCOSE [id number] 11:45:35 Test Item Value Reference Range Interpretation Comments POC-GLUCOSE METER 186 mg/dL 70-110 H : TESTED A T [facility] 6720 (BEAKER) (test code = TUNDE Dickey [facility], 1538) [id number]: Public Housing Manager/Techni chandni ID = [id number] for Laura Márquez POCT-GLUCOSE [id number] 11:34:21 Test Item Value Reference Range Interpretation Comments POC-GLUCOSE METER 184 mg/dL 70-110 H : TESTED A T [facility] 6720 (BEAKER) (test code [facility], = 1538) [id number]: Public Housing Manager/Techni chandni ID = [id number] for DicksonDavi erlin Brigette CT, BRAIN, WITHOUT [id number] 11:26:00Unlisted Reason for Exam - Click Yes and Enter Reason Below->No [facility] : 1975 Sex: FFINAL REPORT CT Head without contrast CLINICAL HISTORY: Altered mental status TECHNIQUE: Contiguous axial CT images through the head without contrast. This exam was performed according to the departmental dose optimization program which includes automated exposure control,adjustment of the mA and/or kV according to the patient size, and/or use of an iterative reconstruction technique. COMPARISON: MRI 04/29/2021 FINDINGS: There is no CT evidence of acute infarct or intracranial hemorrhage. There is mild periventricular and subcortical white matter hypodensity which is nonspecific but compatible with chronic microvascular ischemic change. There is mild generalized parenchymal volume loss without hydrocephalus, midline shift, or apparent mass effect. There are no extra-axial fluid collections. The skull is intact. The visualized paranasal sinuses are well-aerated. IMPRESSION: No CT evidence of acute infarct, hemorrhage, or hydrocephalus. Signed: Varsha Lilly MDReportVerified Date/Time: 05/08/2021 11:26:49 Reading Location: [facility] C013V Neuro Reading Room TINE KINASE (CK)2021-05-08 09:57:12 Test Item Value Reference Range Interpretation Comments CREATINE KINASE TOTAL (BEAKER) (test 88 U/L 29-200 code = 380) Public Housing Manager ID - JHONATHAN WCBC W/PLT COUNT & AUTO [id number] 06:45:58 Test Item Value Reference Range Interpretation Comments WHITE BLOOD CELL COUNT (BEAKER) 15.9 K/ L 3.5-10.5 H (test code = 775) RED BLOOD CELL COUNT (BEAKER) 3.73 M/ L 3.93-5.22 L (test code = 761) HEMOGLOBIN (BEAKER) (test code = 11.2 GM/DL 11.2-15.7 410) HEMATOCRIT (BEAKER) (test code = 33.6 % 34.1-44.9 L 411) MEAN CORPUSCULAR VOLUME (BEAKER) 90.1 fL 79.4-94.8 (test code = 753) MEAN CORPUSCULAR HEMOGLOBIN 30.0 pg 25.6-32.2 (BEAKER) (test code = 751) MEAN CORPUSCULAR HEMOGLOBIN CONC 33.3 GM/DL 32.2-35.5 (BEAKER) (test code = 752) RED CELL DISTRIBUTION WIDTH 14.1 % 11.7-14.4 (BEAKER) (test code = 412) PLATELET COUNT (BEAKER) (test 441 K/CU MM 150-450 code = 756) MEAN PLATELET VOLUME (BEAKER) 9.7 fL 9.4-12.3 (test code = 754) NUCLEATED RED BLOOD CELLS 0 /100 WBC 0-0 (BEAKER) (test code = 413) NEUTROPHILS RELATIVE PERCENT 82 % (BEAKER) (test code = 429) LYMPHOCYTES RELATIVE PERCENT 12 % (BEAKER) (test code = 430) MONOCYTES RELATIVE PERCENT 6 % (BEAKER) (test code = 431) EOSINOPHILS RELATIVE PERCENT 0 % (BEAKER) (test code = 432) BASOPHILS RELATIVE PERCENT 0 % (BEAKER) (test code = 437) NEUTROPHILS ABSOLUTE COUNT 12.96 K/ L 1.56-6.13 H (BEAKER) (test code = 670) LYMPHOCYTES ABSOLUTE COUNT 1.82 K/ L 1.18-3.74 (BEAKER) (test code = 414) MONOCYTES ABSOLUTE COUNT (BEAKER) 0.95 K/ L 0.24-0.36 H (test code = 415) EOSINOPHILS ABSOLUTE COUNT 0.01 K/ L 0.04-0.36 L (BEAKER) (test code = 416) BASOPHILS ABSOLUTE COUNT (BEAKER) 0.05 K/ L 0.01-0.08 (test code = 417) IMMATURE GRANULOCYTES-RELATIVE 0 % 0-1 PERCENT (BEAKER) (test code = 2801) No platelet clump seen on the peripheral smearPOCT-GLUCOSE [id number] 05:51:40 Test Item Value Reference Range Interpretation Comments POC-GLUCOSE METER 260 mg/dL 70-110 H : TESTED A T [facility] 6720 (BEAKER) (test code = [facility], 1538) [address]: Public Housing Manager/Techni chandni ID = [id number] for ROVERTO EPPERSON [id number] 05:14:58 Test Item Value Reference Range Interpretation Comments MAGNESIUM (BEAKER) (test code = 1.8 mg/dL 1.6-2.6 627) Public Housing Manager ID - LETY [id number] 05:14:58 Test Item Value Reference Range Interpretation Comments PHOSPHORUS (BEAKER) (test code = 2.9 mg/dL 2.3-4.7 604) Public Housing Manager ID - LETY LBASIC METABOLIC [id number] 05:14:57 Test Item Value Reference Range Interpretation Comments SODIUM (BEAKER) 143 meq/L 136-145 (test code = 381) POTASSIUM (BEAKER) 3.7 meq/L 3.5-5.1 (test code = 379) CHLORIDE (BEAKER) 107 meq/L 98-107 (test code = 382) CO2 (BEAKER) (test 26 meq/L 22-29 code = 355) BLOOD UREA NITROGEN 24 mg/dL 7-21 H (BEAKER) (test code = 354) CREATININE (BEAKER) 0.83 mg/dL 0.57-1.25 (test code = 358) GLUCOSE RANDOM 316 mg/dL 70-105 H (BEAKER) (test code = 652) CALCIUM (BEAKER) 9.6 mg/dL 8.4-10.2 (test code = 697) EGFR (BEAKER) (test 75 mL/min/1.73 ESTIMA CHANDLER GFR IS code = 1092) sq m NOT ACCURATE CREATININE CLEARANCE IN PREDICTING GLOMERULAR FILTRATION RATE . ESTIMATED GFR I S NOT APPLICABLE FOR DIALYSIS PATIEN TS. Public Housing Manager ID - LETY LHIGH SENSITIVITY TROPONIN [id number] 05:03:50 Test Item Value Reference Range Interpretation Comments HIGH SENSITIVITY 53 pg/ml See_Comment H [Automated message] TROPONIN I (test code = The system which [id number]) generated this result transmitted ref erence range: <=17. Th e reference range was not used to int erpret this result as normal/abnormal . Public Housing Manager ID - JHONATHAN WThe DAIRY MANAGEMENT SPECIALIST STAT High Sensitivity Troponin-I results should be used in conjunction with other diagnostic information such as ECG, clinical observations and information, and patient symptoms to aid in the diagnosis of ME.KETONE, [id number] 04:45:21 Test Item Value Reference Range Interpretation Comments KETONES, BLOOD (BEAKER) (test code 0.2 mmol/L <0.4 = 1103) BLOOD GAS, [id number] 04:40:55 Test Item Value Reference Range Interpretation Comments PH ARTERIAL (BEAKER) (test code = 7.50 7.35-7.45 H 383) PCO2 ARTERIAL (BEAKER) (test code 37 mm Hg 35-45 = 384) PO2 ARTERIAL (BEAKER) (test code = 196 mm Hg 80-90 H 385) O2 SATURATION ARTERIAL (BEAKER) 99.4 % 96.0-97.0 H (test code = 386) HCO3 ARTERIAL (BEAKER) (test code 28 mmol/L 21-29 = 388) BASE EXCESS ARTERIAL (BEAKER) 4.9 mmol/L -2.0-3.0 H (test code = 387) PATIENT TEMPERATURE (BEAKER) (test 38.3 code = 1818) FIO2 (BEAKER) (test code = 1819) 60.0 RAD, ABDOMEN/KUB, 1 VIEW [id number] 04:02:00Reason for exam:->s/p corpak adjustmentShould this be performed at the bedside?->Yes [facility] 1975 Sex: FFINAL REPORT TECHNIQUE: Supine views of the abdomen. INDICATION: s/p corpak adjustment. COMPARISON: Exam from 10 hours prior. FINDINGS/IMPRESSION: The feeding tube terminates at the gastric antrum. Bowel gas pattern is nonobstructive. Signed: Vance Abreu MDReport Verified Date/Time: 05/08/2021 04:02:22 RAD, CHEST, 1 VIEW, NON [id number] 02:08:00Reason for exam:->intubated [facility] 1975 Sex: FFINAL REPORT RAD, CHEST, 1 VIEW, NON DEPT INDICATION: intubated COMPARISON: Prior day's exam FINDINGS: Portable frontal view of the chest. IMPRESSION: Support Lines: Stable. Lungs and pleura: Lungs are clear. No pneumothorax. Heart and mediastinum: Stable contours. Additional findings: None. Signed: Vance Abreu MDReport Verified Date/Time: 05/08/2021 02:08:35 POCT-GLUCOSE [id number] 00:18:10 Test Item Value Reference Range Interpretation Comments POC-GLUCOSE METER 298 mg/dL 70-110 H : TESTED A T [facility] 6720 (Fannect) (test code = [place], 1538) [address]: Public Housing Manager/Techni chandni ID = [id number] for ROVERTO EPPERSON SARS-COV2/RT-PCR ([facility])2021-05-07 20:23:46 Test Item Value Reference Range Interpretation Comments SARS-COV2/RT-PCR (test code = Negative Negative [id number]) Negative result for this test determines that SARS-CoV-2 RNA was not present in the specimen above the Limit of Detection (LOD). However, Negative results do not preclude SARS-CoV-2 infection and should not be used as the sole basis for treatment or patient management decisions. Negative results must be combined with clinical observations, patient history, and epidemiological information. A false negative result may occur if a specimen is improperly collected, transported, or handled. A false negative result should be considered if patient's recent exposures or clinical presentation indicate that COVID-19 (SARS-CoV-2) is likely and diagnostic tests for other causes of illness are negative. Re-testing should be considered in cases of suspected false negatives.The limit of detection for this assay is 100 copies/mL.This SARS-CoV-2 test is a real-time RT_PCR test intended for the qualitative detection of nucleic acid from SARS-CoV-2 in a nasopharyngeal swab specimen collected from individuals suspected of COVID-19 by their healthcare provider.This test has not been Food and Drug Administration (FDA) cleared or approved. This is a modified version of an approved Emergency Use Authorization (EUA) and is in the process of review by the FDA. Once authorized by the FDA, the issued EUA will be e ffective until the declaration that circumstances exist justifying the authorization of the emergency use of in vitro diagnostic tests for detection and/or diagnosis of COVID-19 is terminated under Section 564(b)(2) of the Act or the EUA is revoked under Section 564(g) of the Act.Testing was performedusing the May SARS-CoV-2 assay.Fact Sheet for Healthcare Providers:https://www.molecular.may/sarah/RT SARS-CoV-2 HCP Fact Sheet 51- 374080.pdfFact Sheet for Healthcare Patients:https://www.[employer]/sarah/RT SARS-CoV-2 Patient Fact Sheet EN 51-819290N5.pdfKETONE, [id number] 18:05:28 Test Item Value Reference Range Interpretation Comments KETONES, BLOOD (BEAKER) (test code 0.8 mmol/L <0.4 H = 1103) BLOOD GAS, [id number] 18:03:41 Test Item Value Reference Range Interpretation Comments PH ARTERIAL (BEAKER) (test code = 7.41 7.35-7.45 383) PCO2 ARTERIAL (BEAKER) (test code 42 mm Hg 35-45 = 384) PO2 ARTERIAL (BEAKER) (test code = 194 mm Hg 80-90 H 385) O2 SATURATION ARTERIAL (BEAKER) 99.3 % 96.0-97.0 H (test code = 386) HCO3 ARTERIAL (BEAKER) (test code 25 mmol/L 21-29 = 388) BASE EXCESS ARTERIAL (BEAKER) 1.2 mmol/L -2.0-3.0 (test code = 387) PATIENT TEMPERATURE (BEAKER) (test 38.5 code = 1818) FIO2 (BEAKER) (test code = 1819) 60.0 RAD, ABDOMEN/KUB, 1 VIEW [id number] 17:48:00Reason for exam:->corpak placedShould this be performed at the bedside?->Yes [facility] 1975 Sex: FFINAL REPORT Chest, one view. HISTORY: ett placement. Corpak placement COMPARISON: Radiographs from earlier today IMPRESSION: The endotracheal tube is 5.8 cm above the familia. The feeding tube has its tip over the gastric antrum. There is some patchy opacity in the left base which could be due to aspiration or pneumonia. No pleural effusion or pneumothorax. The cardiac silhouette is unchanged in size. No acute bone abnormality. Moderate to large amount of stool in the rectum. No distended, gas-filled loops of small bowel. Signed: Bj Walters MDReport Verified Date/Time: 05/07/2021 17:48:33 RAD, CHEST, 1 VIEW, NON DEPT 2021-05-07 17:48:00Reason for exam:->ett placementShould this be performed at the bedside?->Yes [facility] 1975 Sex: FFINAL REPORT Chest, one view. HISTORY: ett placement. Corpak placement COMPARISON: Radiographs from earlier today IMPRESSION: The endotracheal tube is 5.8 cm above the familia. The feeding tube has its tip over the gastric antrum. There is some patchy opacity in the left base which could be due to aspiration or pneumonia. No pleural effusion or pneumothorax. The cardiac silhouette is unchanged in size. No acute bone abnormality. Moderate to large amount of stool in the rectum. No distended, gas-filled loops of small bowel. Signed: Bj Walters MDReport Verified Date/Time: 05/07/2021 17:48:33 POCT-GLUCOSE [id number] 17:47:21 Test Item Value Reference Range Interpretation Comments POC-GLUCOSE METER 296 mg/dL 70-110 H : TESTED A T [facility] 6720 (BEAKER) (test code = [facility], 1538) [address]: Public Housing Manager/Techni chandni ID = [id number] for DEQUAN PADILLA URINALYSIS W/ REFLEX URINE [id number] 16:35:42 Test Item Value Reference Range Interpretation Comments COLOR (BEAKER) (test code = 470) Yellow CLARITY (BEAKER) (test code = 469) Clear SPECIFIC GRAVITY UA (BEAKER) (test 1.025 1.001-1.035 code = 468) PH UA (BEAKER) (test code = 467) 6.0 5.0-8.0 PROTEIN UA (BEAKER) (test code = 300 mg/dL Negative A 464) GLUCOSE UA (BEAKER) (test code = 500 mg/dL Negative A 365) KETONES UA (BEAKER) (test code = >150 mg/dL Negative A 371) BILIRUBIN UA (BEAKER) (test code = Positive Negative A 462) BLOOD UA (BEAKER) (test code = Small Negative A 461) NITRITE UA (BEAKER) (test code = Negative Negative 465) LEUKOCYTE ESTERASE UA (BEAKER) Small Negative A (test code = 466) UROBILINOGEN UA (BEAKER) (test 4.0 mg/dL 0.2-1.0 H code = 463) RBC UA (BEAKER) (test code = 519) 12 /HPF WBC UA (BEAKER) (test code = 520) 13 /HPF BACTERIA (BEAKER) (test code = Rare 517) MUCUS (BEAKER) (test code = 1574) Many SQUAMOUS EPITHELIAL (BEAKER) (test 3 /HPF code = 516) HYALINE CASTS (BEAKER) (test code 8 /LPF = 514) CRYSTALS, URINE (BEAKER) (test None Seen code = 1521) YEAST (BEAKER) (test code = 1585) Few SOURCE(BEAKER) (test code = 2795) Public Housing Manager ID - [auto]Public Housing Manager ID - [id number] 14:33:17 Test Item Value Reference Range Interpretation Comments PARTIAL THROMBOPLASTIN TIME 32.5 seconds 22.5-36.0 (BEAKER) (test code = 760) PROTHROMBIN TIME/[id number] 14:32:39 Test Item Value Reference Range Interpretation Comments PROTIME (BEAKER) 14.2 seconds 11.9-14.2 (test code = 759) INR (BEAKER) (test 1.12 See_Comment [Automat ed message] code = 370) The system [employer] generated this result transmitted ref erence range: <=5.90. The reference range was not used to int erpret this result as normal/abnormal . RECOMMENDED COUMADIN/WARFARIN INR THERAPY RANGESSTANDARD DOSE: 2.0 - 3.0 Includes: PROPHYLAXIS forvenous thrombosis, systemic embolization; TREATMENT for venous thrombosis and/or pulmonary embolus.HIGH RISK: Target INR is 2.5-3.5 for patients with mechanical heart valves.[id number] 14:11:29 Test Item Value Reference Range Interpretation Comments PROCALCITONIN (BEAKER) (test code 0.11 ng/mL <0.05 H = 3036) SEPSIS RISK (ng/mL)Low: 0.05-0.50Intermediate: 0.51-2.00High: >=2.01B-TYPE NATRIURETIC FACTOR (BNP)2021-05-07 13:12:53 Test Item Value Reference Range Interpretation Comments B-TYPE NATRIURETIC PEPTIDE (BEAKER) 200 pg/mL 0-100 H (test code = 700) Public Housing Manager ID - SARAHDIOGENES LHIGH SENSITIVITY TROPONIN [id number] 13:12:16 Test Item Value Reference Range Interpretation Comments HIGH SENSITIVITY 38 pg/ml See_Comment H [Automated message] TROPONIN I (test code = The system which [id number]) generated this result transmitted ref erence range: <=17. Th e reference range was not used to int erpret this result as normal/abnormal . Public Housing Manager ID - LETY LThe DAIRY MANAGEMENT SPECIALIST STAT High Sensitivity Troponin-I results should be used in conjunction with other diagnostic information such as ECG, clinical observations and information, and patient symptoms to aid in the diagnosis of ME.[id number] 13:06:54 Test Item Value Reference Range Interpretation Comments D-DIMER QUANTITATIVE (BEAKER) 0.54 MG/L FEU <0.50 H (test code = 671) Intended Use: The D-Dimer Assay can be used to aid in the diagnosis of Deep Vein Thrombosis (DVT) and Pulmonary Embolism Disease (PED).In patients with low pre- test probability, various studies concerning STA Liatest D-dimer test have reported that with a cutoff value of 0.50 MG/L FEU, the Negative Predictive Value (NPV) regarding the exclusion of thrombosis is within 95-100% range. COMPREHENSIVE METABOLIC [id number] 13:06:10 Test Item Value Reference Range Interpretation Comments TOTAL PROTEIN 7.1 gm/dL 6.0-8.3 (BEAKER) (test code = 770) ALBUMIN (BEAKER) 3.8 g/dL 3.5-5.0 (test code = 1145) ALKALINE PHOSPHATASE 126 U/L 40-150 (BEAKER) (test code = 346) BILIRUBIN TOTAL 0.3 mg/dL 0.2-1.2 (BEAKER) (test code = 377) SODIUM (BEAKER) (test 144 meq/L 136-145 code = 381) POTASSIUM (BEAKER) 3.8 meq/L 3.5-5.1 (test code = 379) CHLORIDE (BEAKER) 107 meq/L 98-107 (test code = 382) CO2 (BEAKER) (test 22 meq/L 22-29 code = 355) BLOOD UREA NITROGEN 22 mg/dL 7-21 H (BEAKER) (test code = 354) CREATININE (BEAKER) 0.66 mg/dL 0.57-1.25 (test code = 358) GLUCOSE RANDOM 226 mg/dL 70-105 H (BEAKER) (test code = 652) CALCIUM (BEAKER) 9.9 mg/dL 8.4-10.2 (test code = 697) AST (SGOT) (BEAKER) 23 U/L 5-34 (test code = 353) ALT (SGPT) (BEAKER) 22 U/L 6-55 (test code = 347) EGFR (BEAKER) (test 97 mL/min/1.73 ESTIMA CHANDLER GFR IS code = 1092) sq m NOT ACCURATE CREATININE CLEARANCE IN PREDICTING GLOMERULAR FILTRATION RATE . ESTIMATED GFR I S NOT APPLICABLE FOR DIALYSIS PATIEN TS. Public Housing Manager ID - PIAYA LCBC W/PLT COUNT & AUTO [id number] 12:55:47 Test Item Value Reference Range Interpretation Comments WHITE BLOOD CELL COUNT 13.3 K/ L 3.5-10.5 H (BEAKER) (test code = 775) RED BLOOD CELL COUNT 4.07 M/ L 3.93-5.22 (BEAKER) (test code = 761) HEMOGLOBIN (BEAKER) 12.2 GM/DL 11.2-15.7 (test code = 410) HEMATOCRIT (BEAKER) 37.1 % 34.1-44.9 (test code = 411) MEAN CORPUSCULAR 91.2 fL 79.4-94.8 VOLUME (BEAKER) (test code = 753) MEAN CORPUSCULAR 30.0 pg 25.6-32.2 HEMOGLOBIN (BEAKER) (test code = 751) MEAN CORPUSCULAR 32.9 GM/DL 32.2-35.5 HEMOGLOBIN CONC (BEAKER) (test code = 752) RED CELL DISTRIBUTION 14.0 % 11.7-14.4 WIDTH (BEAKER) (test code = 412) PLATELET COUNT 353 K/CU MM 150-450 (BEAKER) (test code = 756) MEAN PLATELET VOLUME Unable to report due (BEAKER) (test code = to abn ormal Platelet 754) population distribution. NUCLEATED RED BLOOD 0 /100 WBC 0-0 CELLS (BEAKER) (test code = 413) NEUTROPHILS RELATIVE 79 % PERCENT (BEAKER) (test code = 429) LYMPHOCYTES RELATIVE 12 % PERCENT (BEAKER) (test code = 430) MONOCYTES RELATIVE 8 % PERCENT (BEAKER) (test code = 431) EOSINOPHILS RELATIVE 0 % PERCENT (BEAKER) (test code = 432) BASOPHILS RELATIVE 0 % PERCENT (BEAKER) (test code = 437) NEUTROPHILS ABSOLUTE 10.44 K/ L 1.56-6.13 H COUNT (BEAKER) (test code = 670) LYMPHOCYTES ABSOLUTE 1.61 K/ L 1.18-3.74 COUNT (BEAKER) (test code = 414) MONOCYTES ABSOLUTE 1.05 K/ L 0.24-0.36 H COUNT (BEAKER) (test code = 415) EOSINOPHILS ABSOLUTE 0.04 K/ L 0.04-0.36 COUNT (BEAKER) (test code = 416) BASOPHILS ABSOLUTE 0.04 K/ L 0.01-0.08 COUNT (BEAKER) (test code = 417) IMMATURE 1 % 0-1 GRANULOCYTES-RELATIVE PERCENT (BEAKER) (test code = 2801) LACTIC ACID, [id number] 12:51:07 Test Item Value Reference Range Interpretation Comments LACTATE BLOOD VENOUS 0.81 mmol/L 0.50-2.20 Specime n slightly (2) ([facility]) (test hemolyzed code = 2764) Public Housing Manager ID - SARAHAYA [id number] 12:39:06 Test Item Value Reference Range Interpretation Comments POC-HEMATOCRIT 30 % 36-45 L : Public Housing Manager/Te chnician ID = ([facility]) (test code = 238055 for AVIS ZARATE 185) [id number] 12:39:06 Test Item Value Reference Range Interpretation Comments POC-GLUCOSE ([facility]) 227 mg/dL 70-110 H : TESTE D AT [place] [address] (test code = 1855) [facility], [address]: Public Housing Manager/Techni chandni ID = [id number] for AVIS ZARATE [id number] 12:39:05 Test Item Value Reference Range Interpretation Comments POC-POTASSIUM 5.5 meq/L 3.6-5.5 : TESTED AT [place] [address] ([facility]) (test code [facility], = 1540) [address]: Public Housing Manager/Techni chandni ID = [id number] for AVIS ZARATE [id number] 12:39:05 Test Item Value Reference Range Interpretation Comments POC-HEMOGLOBIN 10.2 g/dL 12.0-15.0 L : TESTED AT [place] [address] ([facility]) (test code [facility], = 1856) [address]: Public Housing Manager/Techni chandni ID = [id number] for AVIS ZARATE [id number] 12:39:04 Test Item Value Reference Range Interpretation Comments POC-SODIUM ([facility]) 140 meq/L 135-148 : TESTED AT [place] [address] (test code = 1542) [place] [place], [address]: Public Housing Manager/Techni chandni ID = [id number] for AVIS ZARATE POCT-BLOOD GASES, [id number] 12:38:59 Test Item Value Reference Range Interpretation Comments TEMP, CELSIUS-POC (BEAKER) (test code = 1834) FIO2-POC (BEAKER) (test code = 1835) PH, ARTERIAL-POC 7.536 7.350-7.450 H (BEAKER) (test code = 1836) PCO2, ARTERIAL-POC 34.6 mm Hg 35.0-45.0 L If pO2 is >180, pCO2 may (BEAKER) (test be positively biased code = 1837) PO2, ARTERIAL-POC 243.0 mm Hg 80.0-90.0 H (BEAKER) (test code = 1838) SO2, ARTERIAL-POC 100.0 % 96.0-97.0 H (BEAKER) (test code = 1839) HCO3, ARTERIAL-POC 29.2 meq/L 21.0-29.0 H (BEAKER) (test code = 1840) BASE EXCESS, 7.0 meq/L -2.0-3.0 H : TESTED AT [facility] [address] [facility] [place] (BEAKER) (test [address]: code = 1841) Public Housing Manager/Techni chandni ID = [id number] for AVIS ZARATE RAD, CHEST, 1 VIEW, NON [id number] 12:08:00Reason for exam:->sob [facility] 1975 Sex: FFINAL REPORT INDICATION: sob COMPARISON: None TECHNIQUE: Single frontalview of the chest. FINDINGS: Lungs and pleura: Clear lungs. No effusion.Heart and mediastinum: Normal heart size. Unremarkable mediastinal contours.Osseous structures: No acute abnormality.Other: Feeding tube descends below the diaphragm. IMPRESSION: No acute intrathoracic abnormality. Signed: Tere Plascencia Verified Date/Time: 05/07/2021 12:08:24 [facility], [facility]BD[facility]EN/KUB, 1 VIEW AP 2021-05-07 12:06:00Reason for exam:->corpak placementShould this be performed at the bedside?->Yes [facility] 1975 Sex: FFINAL REPORT RAD, ABDOMEN/KUB, 1 VIEW AP INDICATION: corpak placement COMPARISON: None TECHNIQUE: Limited portable radiograph of the lower chest and upper abdomen was acquired for purposes of evaluating tube placement FINDINGS/IMPRESSION:Feeding tube tip overlies the stomach Signed: Tere Plascencia Verified Date/Time: 05/07/2021 12:06:52 Reading Location: [facility] Rad[facility] Reading Room POCT-GLUCOSE [id number] 10:00:45 Test Item Value Reference Range Interpretation Comments POC-GLUCOSE METER 212 mg/dL 70-110 H : TESTED A T [facility] 6720 (BEAKER) (test code = [place], 1538) [address]: Public Housing Manager/Techni chandni ID = [id number] for JULIA ZAMBRANO BASIC METABOLIC [id number] 06:19:41 Test Item Value Reference Range Interpretation Comments SODIUM (BEAKER) 142 meq/L 136-145 (test code = 381) POTASSIUM (BEAKER) 3.9 meq/L 3.5-5.1 (test code = 379) CHLORIDE (BEAKER) 106 meq/L 98-107 (test code = 382) CO2 (BEAKER) (test 24 meq/L 22-29 code = 355) BLOOD UREA NITROGEN 21 mg/dL 7-21 (BEAKER) (test code = 354) CREATININE (BEAKER) 0.64 mg/dL 0.57-1.25 (test code = 358) GLUCOSE RANDOM 256 mg/dL 70-105 H (BEAKER) (test code = 652) CALCIUM (BEAKER) 9.6 mg/dL 8.4-10.2 (test code = 697) EGFR (BEAKER) (test 101 mL/min/1.73 ESTIM ATED GFR IS code = 1092) sq m NOT ACCURATE CREATININE CLEARANCE IN PREDICTING GLOMERULAR FILTRATION RATE . ESTIMATED GFR I S NOT APPLICABLE FOR DIALYSIS PATIEN TS. Public Housing Manager ID - SARAHDIOGENES LOperator ID - [id number] 05:47:47 Test Item Value Reference Range Interpretation Comments PHOSPHORUS (BEAKER) (test code = 3.3 mg/dL 2.3-4.7 604) Public Housing Manager ID - LETY [id number] 05:47:46 Test Item Value Reference Range Interpretation Comments MAGNESIUM (BEAKER) (test code = 1.8 mg/dL 1.6-2.6 627) Public Housing Manager ID - LETY LCBC (HEMOGRAM ONLY)2021-05-07 04:51:34 Test Item Value Reference Range Interpretation Comments WHITE BLOOD CELL COUNT (BEAKER) 8.4 K/ L 3.5-10.5 (test code = 775) RED BLOOD CELL COUNT (BEAKER) 3.93 M/ L 3.93-5.22 (test code = 761) HEMOGLOBIN (BEAKER) (test code = 11.7 GM/DL 11.2-15.7 410) HEMATOCRIT (BEAKER) (test code = 36.5 % 34.1-44.9 411) MEAN CORPUSCULAR VOLUME (BEAKER) 92.9 fL 79.4-94.8 (test code = 753) MEAN CORPUSCULAR HEMOGLOBIN 29.8 pg 25.6-32.2 (BEAKER) (test code = 751) MEAN CORPUSCULAR HEMOGLOBIN CONC 32.1 GM/DL 32.2-35.5 L (BEAKER) (test code = 752) RED CELL DISTRIBUTION WIDTH 13.6 % 11.7-14.4 (BEAKER) (test code = 412) PLATELET COUNT (BEAKER) (test 374 K/CU MM 150-450 code = 756) MEAN PLATELET VOLUME (BEAKER) 8.9 fL 9.4-12.3 L (test code = 754) NUCLEATED RED BLOOD CELLS 0 /100 WBC 0-0 (BEAKER) (test code = 413) POCT-GLUCOSE [id number] 04:39:43 Test Item Value Reference Range Interpretation Comments POC-GLUCOSE METER 240 mg/dL 70-110 H : TESTED A T [facility] 6720 (BEAKER) (test code = [facility], 153) [address]: Public Housing Manager/Techni chandni ID = [id number] for NO OR CINDYLAURA STAR SEGUNDO POCT-GLUCOSE [id number] 20:50:53 Test Item Value Reference Range Interpretation Comments POC-GLUCOSE METER 209 mg/dL 70-110 H : TESTED A T [facility] 6720 (BEAKER) (test code = [facility], 153) 7[address]: Public Housing Manager/Techni chandni ID = [id number] for ASHISH SANCHEZ POCT-GLUCOSE [id number] 17:59:35 Test Item Value Reference Range Interpretation Comments POC-GLUCOSE METER 123 mg/dL 70-110 H : TESTED A T [facility] 6720 (BEAKER) (test code = [facility], 153) 7[address]: Public Housing Manager/Techni chandni ID = [id number] for ALEIDA REGAN RAD, CHEST, 1 VIEW, NON [id number] 15:59:00Reason for exam:->sobShould this be performed at the bedside?->Yes [facility] : 1975 Sex: FFINAL REPORT RAD, CHEST, 1 VIEW, NON DEPT INDICATION: sob COMPARISON: 05/03/2020 FINDINGS: Portable frontal view of the chest. IMPRESSION: Support Lines: Feeding tube descends below the diaphragm. Lungs and pleura: Lungs are clear No significant pneumothorax. Heart and mediastinum: Normal contours. Additional findings: None. Signed: Tere Plascencia Verified Date/Time: 05/06/2021 15:59:13 POCT-GLUCOSE [id number] 11:39:57 Test Item Value Reference Range Interpretation Comments POC-GLUCOSE METER 210 mg/dL 70-110 H : Notified RN/MD: (YOHANA) (test code = TESTED AT [facility] 6720 1538) [facility], [address]: Public Housing Manager/Techni chandni ID = [id number] for Karen Webber POCT-GLUCOSE [id number] 06:45:24 Test Item Value Reference Range Interpretation Comments POC-GLUCOSE METER 233 mg/dL 70-110 H : TESTED A T [facility] 6720 (BEAKER) (test code [facility], = 1538) [address]: Public Housing Manager/Techni chandni ID = [id number] for SUGU , SHEENAMOL [id number] 05:38:34 Test Item Value Reference Range Interpretation Comments MAGNESIUM (BEAKER) (test code = 1.7 mg/dL 1.6-2.6 627) Public Housing Manager ID - JHONATHAN [id number] 05:38:34 Test Item Value Reference Range Interpretation Comments PHOSPHORUS (BEAKER) (test code = 2.8 mg/dL 2.3-4.7 604) Public Housing Manager ID Roslyn RING WBASIC METABOLIC [id number] 05:38:33 Test Item Value Reference Range Interpretation Comments SODIUM (BEAKER) 141 meq/L 136-145 (test code = 381) POTASSIUM (BEAKER) 4.0 meq/L 3.5-5.1 (test code = 379) CHLORIDE (BEAKER) 105 meq/L 98-107 (test code = 382) CO2 (BEAKER) (test 24 meq/L 22-29 code = 355) BLOOD UREA NITROGEN 19 mg/dL 7-21 (BEAKER) (test code = 354) CREATININE (BEAKER) 0.61 mg/dL 0.57-1.25 (test code = 358) GLUCOSE RANDOM 194 mg/dL 70-105 H (BEAKER) (test code = 652) CALCIUM (BEAKER) 9.5 mg/dL 8.4-10.2 (test code = 697) EGFR (BEAKER) (test 107 mL/min/1.73 ESTIM ATED GFR IS code = 1092) sq m NOT ACCURATE CREATININE CLEARANCE IN PREDICTING GLOMERULAR FILTRATION RATE . ESTIMATED GFR I S NOT APPLICABLE FOR DIALYSIS PATIEN TS. Public Housing Manager ID Roslyn RING WCBC (HEMOGRAM ONLY)2021-05-06 04:58:31 Test Item Value Reference Range Interpretation Comments WHITE BLOOD CELL COUNT (BEAKER) 7.7 K/ L 3.5-10.5 (test code = 775) RED BLOOD CELL COUNT (BEAKER) 3.76 M/ L 3.93-5.22 L (test code = 761) HEMOGLOBIN (BEAKER) (test code = 11.3 GM/DL 11.2-15.7 410) HEMATOCRIT (BEAKER) (test code = 34.3 % 34.1-44.9 411) MEAN CORPUSCULAR VOLUME (BEAKER) 91.2 fL 79.4-94.8 (test code = 753) MEAN CORPUSCULAR HEMOGLOBIN 30.1 pg 25.6-32.2 (BEAKER) (test code = 751) MEAN CORPUSCULAR HEMOGLOBIN CONC 32.9 GM/DL 32.2-35.5 (BEAKER) (test code = 752) RED CELL DISTRIBUTION WIDTH 13.6 % 11.7-14.4 (BEAKER) (test code = 412) PLATELET COUNT (BEAKER) (test 318 K/CU MM 150-450 code = 756) MEAN PLATELET VOLUME (BEAKER) 9.1 fL 9.4-12.3 L (test code = 754) NUCLEATED RED BLOOD CELLS 0 /100 WBC 0-0 (BEAKER) (test code = 413) POCT-GLUCOSE [id number] 00:01:23 Test Item Value Reference Range Interpretation Comments POC-GLUCOSE METER 300 mg/dL 70-110 H : TESTED A T [facility] 6720 (BEAKER) (test code [facility], = 1538) 68[address]: Public Housing Manager/Techni chandni ID = [id number] for SUGU , SHEENAMOL POCT-GLUCOSE [id number] 18:28:29 Test Item Value Reference Range Interpretation Comments POC-GLUCOSE METER 88 mg/dL 70-110 : TESTED A T [facility] 6720 (BEAKER) (test code = [facility], 1538) 80268: Public Housing Manager/Techni chandni ID = [id number] for RONALD AMEZQUITAANNA [id number] 13:32:57 Test Item Value Reference Range Interpretation Comments POTASSIUM (BEAKER) (test code = 3.7 meq/L 3.5-5.1 379) Public Housing Manager ID - [id number] 13:32:56 Test Item Value Reference Range Interpretation Comments MAGNESIUM (BEAKER) (test code = 2.3 mg/dL 1.6-2.6 627) Public Housing Manager ID - DBPOCT-GLUCOSE [id number] 12:58:45 Test Item Value Reference Range Interpretation Comments POC-GLUCOSE METER 133 mg/dL 70-110 H : TESTED A T [facility] 6720 (BEAKER) (test code = [facility], 1538) 96789: Public Housing Manager/Techni chandni ID = [id number] for RONALD BANERJEEKEYA POCT-GLUCOSE [id number] 05:54:40 Test Item Value Reference Range Interpretation Comments POC-GLUCOSE METER 153 mg/dL 70-110 H : TESTED A T [facility] 6720 (BEAKER) (test code = [facility], 1538) 939[address]: Public Housing Manager/Techni chandni ID = [id number] for Gi sset (pca2), Gale BASIC METABOLIC [id number] 04:43:36 Test Item Value Reference Range Interpretation Comments SODIUM (BEAKER) 142 meq/L 136-145 (test code = 381) POTASSIUM (BEAKER) 3.7 meq/L 3.5-5.1 (test code = 379) CHLORIDE (BEAKER) 106 meq/L 98-107 (test code = 382) CO2 (BEAKER) (test 28 meq/L 22-29 code = 355) BLOOD UREA NITROGEN 17 mg/dL 7-21 (BEAKER) (test code = 354) CREATININE (BEAKER) 0.51 mg/dL 0.57-1.25 L (test code = 358) GLUCOSE RANDOM 109 mg/dL 70-105 H (BEAKER) (test code = 652) CALCIUM (BEAKER) 9.4 mg/dL 8.4-10.2 (test code = 697) EGFR (BEAKER) (test 131 mL/min/1.73 ESTIM ATED GFR IS code = 1092) sq m NOT ACCURATE CREATININE CLEARANCE IN PREDICTING GLOMERULAR FILTRATION RATE . ESTIMATED GFR I S NOT APPLICABLE FOR DIALYSIS PATIEN TS. Public Housing Manager ID Roslyn RING [id number] 04:43:36 Test Item Value Reference Range Interpretation Comments MAGNESIUM (BEAKER) (test code = 1.6 mg/dL 1.6-2.6 627) Public Housing Manager ID Roslyn RING [id number] 04:43:36 Test Item Value Reference Range Interpretation Comments PHOSPHORUS (BEAKER) (test code = 3.0 mg/dL 2.3-4.7 604) Public Housing Manager ID Roslyn RING WCBC (HEMOGRAM ONLY)2021-05-05 04:19:10 Test Item Value Reference Range Interpretation Comments WHITE BLOOD CELL COUNT (BEAKER) 4.9 K/ L 3.5-10.5 (test code = 775) RED BLOOD CELL COUNT (BEAKER) 3.54 M/ L 3.93-5.22 L (test code = 761) HEMOGLOBIN (BEAKER) (test code = 10.7 GM/DL 11.2-15.7 L 410) HEMATOCRIT (BEAKER) (test code = 32.4 % 34.1-44.9 L 411) MEAN CORPUSCULAR VOLUME (BEAKER) 91.5 fL 79.4-94.8 (test code = 753) MEAN CORPUSCULAR HEMOGLOBIN 30.2 pg 25.6-32.2 (BEAKER) (test code = 751) MEAN CORPUSCULAR HEMOGLOBIN CONC 33.0 GM/DL 32.2-35.5 (BEAKER) (test code = 752) RED CELL DISTRIBUTION WIDTH 13.4 % 11.7-14.4 (BEAKER) (test code = 412) PLATELET COUNT (BEAKER) (test 252 K/CU MM 150-450 code = 756) MEAN PLATELET VOLUME (BEAKER) 9.1 fL 9.4-12.3 L (test code = 754) NUCLEATED RED BLOOD CELLS 0 /100 WBC 0-0 (BEAKER) (test code = 413) POCT-GLUCOSE [id number] 23:40:41 Test Item Value Reference Range Interpretation Comments POC-GLUCOSE METER 135 mg/dL 70-110 H : TESTED A T [facility] 6720 ([facility]) (test code = [facility], 153) 81988: Public Housing Manager/Techni chandni ID = [id number] for Gi sset (pca2), Gale POCT-GLUCOSE [id number] 17:46:12 Test Item Value Reference Range Interpretation Comments POC-GLUCOSE METER 207 mg/dL 70-110 H : TESTED A T [facility] 6720 (BEAKER) (test code = [facility], 153) 29496: Public Housing Manager/Techni chandni ID = [id number] for ILDEFONSO PONCE POCT-GLUCOSE [id number] 12:20:26 Test Item Value Reference Range Interpretation Comments POC-GLUCOSE METER 188 mg/dL 70-110 H : TESTED A T [facility] 6720 (BEAKER) (test code = [facility], 153) 17422: Public Housing Manager/Techni chandni ID = [id number] for Jossie mariegianLaura lugo POCT-GLUCOSE [id number] 06:23:39 Test Item Value Reference Range Interpretation Comments POC-GLUCOSE METER 221 mg/dL 70-110 H : TESTED A T [facility] 6720 (BEAKER) (test code [facility], = 1538) 92111: Public Housing Manager/Techni chandni ID = [id number] for MITCHELL ATLUCIEN BASIC METABOLIC [id number] 03:25:59 Test Item Value Reference Range Interpretation Comments SODIUM (BEAKER) 145 meq/L 136-145 (test code = 381) POTASSIUM (BEAKER) 3.8 meq/L 3.5-5.1 (test code = 379) CHLORIDE (BEAKER) 107 meq/L 98-107 (test code = 382) CO2 (BEAKER) (test 32 meq/L 22-29 H code = 355) BLOOD UREA NITROGEN 19 mg/dL 7-21 (BEAKER) (test code = 354) CREATININE (BEAKER) 0.60 mg/dL 0.57-1.25 (test code = 358) GLUCOSE RANDOM 193 mg/dL 70-105 H (BEAKER) (test code = 652) CALCIUM (BEAKER) 9.6 mg/dL 8.4-10.2 (test code = 697) EGFR (BEAKER) (test 109 mL/min/1.73 ESTIM ATED GFR IS code = 1092) sq m NOT ACCURATE CREATININE CLEARANCE IN PREDICTING GLOMERULAR FILTRATION RATE . ESTIMATED GFR I S NOT APPLICABLE FOR DIALYSIS PATIEN TS. Public Housing Manager ID Roslyn RING [id number] 03:25:59 Test Item Value Reference Range Interpretation Comments MAGNESIUM (BEAKER) (test code = 1.7 mg/dL 1.6-2.6 627) Public Housing Manager ID Roslyn RING [id number] 03:25:59 Test Item Value Reference Range Interpretation Comments PHOSPHORUS (BEAKER) (test code = 4.0 mg/dL 2.3-4.7 604) Public Housing Manager LANE RING WCBC (HEMOGRAM ONLY)2021-05-04 03:07:14 Test Item Value Reference Range Interpretation Comments WHITE BLOOD CELL COUNT 6.6 K/ L 3.5-10.5 (BEAKER) (test code = 775) RED BLOOD CELL COUNT 3.54 M/ L 3.93-5.22 L (BEAKER) (test code = 761) HEMOGLOBIN (BEAKER) 10.6 GM/DL 11.2-15.7 L (test code = 410) HEMATOCRIT (BEAKER) 32.9 % 34.1-44.9 L (test code = 411) MEAN CORPUSCULAR 92.9 fL 79.4-94.8 Discordant MCV VOLUME (BEAKER) (test result s compared to code = 753) previous result s; clinical correl ation required. MEAN CORPUSCULAR 29.9 pg 25.6-32.2 HEMOGLOBIN (BEAKER) (test code = 751) MEAN CORPUSCULAR 32.2 GM/DL 32.2-35.5 HEMOGLOBIN CONC (BEAKER) (test code = 752) RED CELL DISTRIBUTION 13.3 % 11.7-14.4 WIDTH (BEAKER) (test code = 412) PLATELET COUNT 252 K/CU MM 150-450 (BEAKER) (test code = 756) MEAN PLATELET VOLUME 9.2 fL 9.4-12.3 L (BEAKER) (test code = 754) NUCLEATED RED BLOOD 0 /100 WBC 0-0 CELLS (BEAKER) (test code = 413) POCT-GLUCOSE [id number] 00:37:09 Test Item Value Reference Range Interpretation Comments POC-GLUCOSE METER 194 mg/dL 70-110 H : TESTED A T [facility] 6720 (AKER) (test code = [place], 1538) [address]: Public Housing Manager/Techni chandni ID = [id number] for MOLLY YANEZ RAD, ABDOMEN/KUB, 1 VIEW [id number] 20:44:00Reason for exam:->Corpark placementGREATER [facility] : 1975 Sex: FFINAL REPORT EXAM/TECHNIQUE: RAD, ABDOMEN/KUB, 1 VIEW AP INDICATION: Feeding tube. COMPARISON: 05/03/2021. FINDINGS: Feeding tube terminates in the stomach. Impression: Feeding tube terminates in the stomach. Signed: Karel, [place] MDReport Verified Date/Time: 0:44:11 RAD, ABDOMEN/KUB, 1 VIEW AP 2021-05-03 20:42:00Reason for exam:->s/p feed tube, RN will callShould this be performed at the bedside?->Yes [facility] 1975 Sex: FFINAL REPORT EXAM/TECHNIQUE: RAD, ABDOMEN/KUB, 1 VIEW AP INDICATION: Feeding tube COMPARISON: 05/02/2021 FINDINGS: Feeding tube terminates in the stomach. Impression: Feeding tube terminates in the stomach. Signed: Gordon Oconnell MDReport Verified Date/Time: 05/03/2021 20:42:57 POCT-GLUCOSE [id number] 19:46:00 Test Item Value Reference Range Interpretation Comments POC-GLUCOSE METER 127 mg/dL 70-110 H : TESTED A T [facility] 6720 (BEAKER) (test code [place], = 1538) [address]: Public Housing Manager/Techni chandni ID = [id number] for LUCIEN WATERMAN RAD, ABDOMEN/KUB, 1 VIEW [id number] 19:45:00Reason for exam:->coprak placementGREATER [facility] : 1975 Sex: FFINAL REPORT EXAM/TECHNIQUE: RAD, ABDOMEN/KUB, 1 VIEW AP INDICATION: Feeding tube. COMPARISON: Same day radiography. FINDINGS: Feeding tube terminates in the distal stomach/proximal duodenum. Impression: Feeding tube terminates in the distal stomach/proximal duodenum. Signed: Gordon Oconnell Verified Date/Time: 05/03/2021 19:45:35 RAD, ABDOMEN/KUB, 1 VIEW [id number] 19:36:00Reason for exam:->corpak placement [facility] : 1975 Sex: FFINAL REPORT EXAM/TECHNIQUE: RAD, ABDOMEN/KUB, 1 VIEW AP INDICATION: Feeding tube. COMPARISON: Same day radiography. FINDINGS: Feeding tube terminates in the stomach. Impression: Feeding tube terminates in the stomach. Signed: Gordon Oconnell Verified Date/Time:05/03/2021 19:36:41 POCT-GLUCOSE [id number] 11:50:17 Test Item Value Reference Range Interpretation Comments POC-GLUCOSE METER 185 mg/dL 70-110 H : Notified RN/MD: (YOHANA) (test code = TESTED AT [facility] 6720 1538) [facility], [address]: Public Housing Manager/Techni chandni ID = [id number] for BAILEY BANERJEE POCT-GLUCOSE [id number] 05:56:57 Test Item Value Reference Range Interpretation Comments POC-GLUCOSE METER 233 mg/dL 70-110 H : TESTED A T [facility] 6720 [facility] ([facility] = [facility], 1538) [address]: Public Housing Manager/Techni chandni ID = [id number] for MOLLY YANEZ RAD, CHEST, 1 VIEW, NON [id number] 05:35:00Reason for exam:->labored breathingShould this be performed at the bedside?->Yes [facility] : 1975 Sex: FFINAL REPORT RAD, CHEST, 1 VIEW, NON DEPT INDICATION: labored breathingCOMPARISON: Prior day's exam FINDINGS: Portable frontal view of the chest. IMPRESSION: Support Lines: Interval extubation. The feeding tube projects superiorly in the fundus. Lungs and pleura: No interval consolidation or effusion. No pneumothorax. Heart and mediastinum: Stable contours. Additional findings: None. Signed: Vance Abreuort Verified Date/Time: 05/03/2021 05:35:18 [id number] 04:04:50 Test Item Value Reference Range Interpretation Comments PHOSPHORUS (BEAKER) (test code = 3.4 mg/dL 2.3-4.7 604) Public Housing Manager [address] [id number] 04:04:49 Test Item Value Reference Range Interpretation Comments MAGNESIUM (BEAKER) (test code = 1.9 mg/dL 1.6-2.6 627) Public Housing Manager [address] [place] LBASIC METABOLIC [id number] 04:04:48 Test Item Value Reference Range Interpretation Comments SODIUM (BEAKER) 141 meq/L 136-145 (test code = 381) POTASSIUM (BEAKER) 3.3 meq/L 3.5-5.1 L (test code = 379) CHLORIDE (BEAKER) 107 meq/L 98-107 (test code = 382) CO2 (BEAKER) (test 25 meq/L 22-29 code = 355) BLOOD UREA NITROGEN 16 mg/dL 7-21 (BEAKER) (test code = 354) CREATININE (BEAKER) 0.57 mg/dL 0.57-1.25 (test code = 358) GLUCOSE RANDOM 204 mg/dL 70-105 H (BEAKER) (test code = 652) CALCIUM (BEAKER) 9.4 mg/dL 8.4-10.2 (test code = 697) EGFR (BEAKER) (test 115 mL/min/1.73 ESTIM ATED GFR IS code = 1092) sq m NOT ACCURATE CREATININE CLEARANCE IN PREDICTING GLOMERULAR FILTRATION RATE . ESTIMATED GFR I S NOT APPLICABLE FOR DIALYSIS PATIEN TS. Public Housing Manager ID Roslyn ALLENLOOD GAS, [id number] 04:03:12 Test Item Value Reference Range Interpretation Comments PH ARTERIAL (BEAKER) (test code = 7.45 7.35-7.45 383) PCO2 ARTERIAL (BEAKER) (test code 40 mm Hg 35-45 = 384) PO2 ARTERIAL (BEAKER) (test code = 109 mm Hg 80-90 H 385) O2 SATURATION ARTERIAL (BEAKER) 98.2 % 96.0-97.0 H (test code = 386) HCO3 ARTERIAL (BEAKER) (test code 27 mmol/L 21-29 = 388) BASE EXCESS ARTERIAL (BEAKER) 2.7 mmol/L -2.0-3.0 (test code = 387) PATIENT TEMPERATURE (BEAKER) (test 37.0 code = 1818) FIO2 (BEAKER) (test code = 1819) 28.0 CBC (HEMOGRAM ONLY)2021-05-03 03:28:33 Test Item Value Reference Range Interpretation Comments WHITE BLOOD CELL COUNT (BEAKER) 5.4 K/ L 3.5-10.5 (test code = 775) RED BLOOD CELL COUNT (BEAKER) 3.45 M/ L 3.93-5.22 L (test code = 761) HEMOGLOBIN (BEAKER) (test code = 10.5 GM/DL 11.2-15.7 L 410) HEMATOCRIT (BEAKER) (test code = 30.4 % 34.1-44.9 L 411) MEAN CORPUSCULAR VOLUME (BEAKER) 88.1 fL 79.4-94.8 (test code = 753) MEAN CORPUSCULAR HEMOGLOBIN 30.4 pg 25.6-32.2 (BEAKER) (test code = 751) MEAN CORPUSCULAR HEMOGLOBIN CONC 34.5 GM/DL 32.2-35.5 (BEAKER) (test code = 752) RED CELL DISTRIBUTION WIDTH 13.5 % 11.7-14.4 (BEAKER) (test code = 412) PLATELET COUNT (BEAKER) (test 255 K/CU MM 150-450 code = 756) MEAN PLATELET VOLUME (BEAKER) 10.5 fL 9.4-12.3 (test code = 754) NUCLEATED RED BLOOD CELLS 0 /100 WBC 0-0 (BEAKER) (test code = 413) POCT-GLUCOSE [id number] 00:12:50 Test Item Value Reference Range Interpretation Comments POC-GLUCOSE METER 151 mg/dL 70-110 H : TESTED A T [facility] 6720 (BEAKER) (test code = [place], 1538) [address]: Public Housing Manager/Techni chandni ID = [id number] for MOLLY YANEZ [id number] 19:28:10 Test Item Value Reference Range Interpretation Comments MAGNESIUM (BEAKER) 1.6 mg/dL 1.6-2.6 Specimen slightly (test code = 627) hemolyzed Public Housing Manager ID - BSPOCT-GLUCOSE [id number] 17:54:44 Test Item Value Reference Range Interpretation Comments POC-GLUCOSE METER 161 mg/dL 70-110 H : TESTED A T [facility] 6720 (BEAKER) (test code = [place], 1538) [address]: Public Housing Manager/Techni chandni ID = [id number] for RAMEZ NETTLES, ABDOMEN/KUB, 1 VIEW [id number] 17:01:00Reason for exam:->s/p NG [facility] : 1975 Sex: FFINAL REPORT Abdomen date 05/02/2021 Comment: Frontal view of the abdomen demonstrates a feeding tube present with tip noted in the coiled in the body of the stomach. Signed: Vance Montero MDReport Verified Date/Time: 05/02/2021 17:01:11 CSF CULTURE + GRAM [id number] 15:09:18 Test Item Value Reference Range Interpretation Comments CULTURE (BEAKER) (test No growth code = 1095) GRAM STAIN RESULT No White blood cells (BEAKER) (test code = seen 1123) GRAM STAIN RESULT No organisms seen (BEAKER) (test code = 95537) POCT-GLUCOSE [id number] 12:17:53 Test Item Value Reference Range Interpretation Comments POC-GLUCOSE METER 141 mg/dL 70-110 H : TESTED A T [facility] 6720 (BEAKER) (test code = [place], 1538) [address]: Public Housing Manager/Techni chandni ID = [id number] for St hermelindatomalena Karen POCT-GLUCOSE [id number] 09:19:04 Test Item Value Reference Range Interpretation Comments POC-GLUCOSE METER 205 mg/dL 70-110 H : TESTED A T [facility] 6720 (YOHANA) (test code = [place], 1538) [address]: Public Housing Manager/Techni chandni ID = [id number] for RAMEZ NETTLES RAD, CHEST, 1 VIEW, NON [id number] 08:11:00Reason for exam:->Intubated patientShould this be performed at the bedside?->Yes [facility] : 1975 Sex: FFINAL REPORT CLINICAL HISTORY: Intubated patient TECHNIQUE: 1 view of the chest. COMPARISON: 05/01/2021 IMPRESSION: The ETT terminates 2 cm above the familia. The NG tube is below the diaphragm. There are no focal infiltrates or effusions. There is no cardiomegaly. The visualized bones appear intact. Signed: Varsha Lilly [facility] Verified Date/Time: 05/02/2021 08:11:49 Reading Location: [facility] Radiology Reading Room POCT-GLUCOSE [id number] 05:21:28 Test Item Value Reference Range Interpretation Comments POC-GLUCOSE METER 253 mg/dL 70-110 H : TESTED A T [facility] 6720 (BEAKER) (test code = [place], 1538) [address]: Public Housing Manager/Techni chandni ID = [id number] for Ariana Arguelles BASIC METABOLIC [id number] 04:53:10 Test Item Value Reference Range Interpretation Comments SODIUM (BEAKER) 141 meq/L 136-145 (test code = 381) POTASSIUM (BEAKER) 4.0 meq/L 3.5-5.1 Specimen slightly (test code = 379) hemolyzed CHLORIDE (BEAKER) 107 meq/L 98-107 (test code = 382) CO2 (BEAKER) (test 26 meq/L 22-29 code = 355) BLOOD UREA NITROGEN 13 mg/dL 7-21 (BEAKER) (test code = 354) CREATININE (BEAKER) 0.61 mg/dL 0.57-1.25 Specimen slightly (test code = 358) hemolyzed GLUCOSE RANDOM 272 mg/dL 70-105 H (BEAKER) (test code = 652) CALCIUM (BEAKER) 9.2 mg/dL 8.4-10.2 (test code = 697) EGFR (BEAKER) (test 107 mL/min/1.73 ESTIM ATED GFR IS code = 1092) sq m NOT ACCURATE CREATININE CLEARANCE IN PREDICTING GLOMERULAR FILTRATION RATE . ESTIMATED GFR I S NOT APPLICABLE FOR DIALYSIS PATIEN TS. Public Housing Manager ID Roslyn RING [id number] 04:53:09 Test Item Value Reference Range Interpretation Comments MAGNESIUM (BEAKER) 1.8 mg/dL 1.6-2.6 Specimen slightly (test code = 627) hemolyzed Public Housing Manager ID Roslyn RING [id number] 04:53:09 Test Item Value Reference Range Interpretation Comments PHOSPHORUS (BEAKER) 3.4 mg/dL 2.3-4.7 Specimen slightly (test code = 604) hemolyzed Public Housing Manager ID Roslyn RING WCBC (HEMOGRAM ONLY)2021-05-02 04:48:46 Test Item Value Reference Range Interpretation Comments WHITE BLOOD CELL COUNT (BEAKER) 6.9 K/ L 3.5-10.5 (test code = 775) RED BLOOD CELL COUNT (BEAKER) 3.33 M/ L 3.93-5.22 L (test code = 761) HEMOGLOBIN (BEAKER) (test code = 10.1 GM/DL 11.2-15.7 L 410) HEMATOCRIT (BEAKER) (test code = 29.2 % 34.1-44.9 L 411) MEAN CORPUSCULAR VOLUME (BEAKER) 87.7 fL 79.4-94.8 (test code = 753) MEAN CORPUSCULAR HEMOGLOBIN 30.3 pg 25.6-32.2 (BEAKER) (test code = 751) MEAN CORPUSCULAR HEMOGLOBIN CONC 34.6 GM/DL 32.2-35.5 (BEAKER) (test code = 752) RED CELL DISTRIBUTION WIDTH 13.7 % 11.7-14.4 (BEAKER) (test code = 412) PLATELET COUNT (BEAKER) (test 195 K/CU MM 150-450 code = 756) MEAN PLATELET VOLUME (BEAKER) 10.1 fL 9.4-12.3 (test code = 754) NUCLEATED RED BLOOD CELLS 0 /100 WBC 0-0 (BEAKER) (test code = 413) BLOOD GAS, [id number] 04:35:19 Test Item Value Reference Range Interpretation Comments PH ARTERIAL (BEAKER) (test code = 7.43 7.35-7.45 383) PCO2 ARTERIAL (BEAKER) (test code 40 mm Hg 35-45 = 384) PO2 ARTERIAL (BEAKER) (test code = 219 mm Hg 80-90 H 385) O2 SATURATION ARTERIAL (BEAKER) 99.5 % 96.0-97.0 H (test code = 386) HCO3 ARTERIAL (BEAKER) (test code 26 mmol/L 21-29 = 388) BASE EXCESS ARTERIAL (BEAKER) 1.4 mmol/L -2.0-3.0 (test code = 387) PATIENT TEMPERATURE (BEAKER) (test 37.5 code = 1818) FIO2 (BEAKER) (test code = 1819) 40.0 POCT-GLUCOSE [id number] 23:36:39 Test Item Value Reference Range Interpretation Comments POC-GLUCOSE METER 249 mg/dL 70-110 H : TESTED A T [facility] 6720 (BEAKER) (test code = [facility], 1538) [id number]: Public Housing Manager/Techni chandni ID = [id number] for Ariana Arguelles POCT-GLUCOSE [id number] 17:17:02 Test Item Value Reference Range Interpretation Comments POC-GLUCOSE METER 158 mg/dL 70-110 H : TESTED A T [facility] 6720 (BEAKER) (test code = TUNDE Dickey [facility], 1538) [id number]: Public Housing Manager/Techni chandni ID = [id number] for Laura Márquez SCREEN, [id number] 17:16:24 Test Item Value Reference Range Interpretation Comments TEST URINE (BEAKER) (test Negative code = 583) CALCIUM, [id number] 13:02:36 Test Item Value Reference Range Interpretation Comments CALCIUM IONIZED (BEAKER) (test 1.18 mmol/L 1.12-1.27 code = 698) PH, BLOOD (BEAKER) (test code = 7.34 1810) [id number] 12:28:29 Test Item Value Reference Range Interpretation Comments POTASSIUM (BEAKER) (test code = 4.0 meq/L 3.5-5.1 379) Public Housing Manager ID - KELSIE [id number] 12:28:28 Test Item Value Reference Range Interpretation Comments MAGNESIUM (BEAKER) (test code = 1.9 mg/dL 1.6-2.6 627) Public Housing Manager ID - KELSIE MPOCT-GLUCOSE [id number] 11:25:26 Test Item Value Reference Range Interpretation Comments POC-GLUCOSE METER 231 mg/dL 70-110 H : TESTED A T [facility] 6720 (BEAKER) (test code = [facility], 1538) 877[address]: Public Housing Manager/Techni chandni ID = [id number] for Laura Máruqez POCT-GLUCOSE [id number] 08:23:51 Test Item Value Reference Range Interpretation Comments POC-GLUCOSE METER 109 mg/dL 70-110 : TESTED A T [facility] 6720 (BEAKER) (test code = [facility], 1538) 795[address]: Public Housing Manager/Techni chandni ID = [id number] for YURI EATON (V)ASHISH RAD, CHEST, 1 VIEW, NON [id number] 07:31:00Reason for exam:->Intubated patientShould this be performed at the bedside?->Yes [facility] 1975 Sex: FFINAL REPORT CLINICAL HISTORY: Intubated patient TECHNIQUE: 1 view of the chest. COMPARISON: 04/30/2021 IMPRESSION: An ETT and feeding tube are again seen. There is no lobarconsolidation or significant pleural fluid. There is no cardiomegaly. Signed: Varsha Lilly MDReportVerified Date/Time: 05/01/2021 07:31:55 Reading Location: [facility] Radiology Reading Room RETICULOCYTE COUNT 2021-05-01 06:56:31 Test Item Value Reference Range Interpretation Comments RETICULOCYTE COUNT PCT (BEAKER) (test 1.8 % 0.5-1.7 H code = 575) Public Housing Manager ID - 6000POCT-GLUCOSE [id number] 05:45:31 Test Item Value Reference Range Interpretation Comments POC-GLUCOSE METER 270 mg/dL 70-110 H : TESTED A T [facility] 6720 (BEAKER) (test code = [place], 1538) 05[address]: Public Housing Manager/Techni chandni ID = [id number] for Ariana Arguelles [id number] 04:43:19 Test Item Value Reference Range Interpretation Comments PHOSPHORUS (BEAKER) (test code = 2.8 mg/dL 2.3-4.7 604) Public Housing Manager ID - KELSIE MCREATINE KINASE (CK)2021-05-01 04:43:19 Test Item Value Reference Range Interpretation Comments CREATINE KINASE TOTAL (BEAKER) (test 52 U/L 29-200 code = 380) Public Housing Manager ID - KELSIE [id number] 04:43:18 Test Item Value Reference Range Interpretation Comments MAGNESIUM (BEAKER) (test code = 1.7 mg/dL 1.6-2.6 627) Public Housing Manager ID - KELSIE MBASIC METABOLIC [id number] 04:43:18 Test Item Value Reference Range Interpretation Comments SODIUM (BEAKER) 140 meq/L 136-145 (test code = 381) POTASSIUM (BEAKER) 3.6 meq/L 3.5-5.1 (test code = 379) CHLORIDE (BEAKER) 107 meq/L 98-107 (test code = 382) CO2 (BEAKER) (test 27 meq/L 22-29 code = 355) BLOOD UREA NITROGEN 12 mg/dL 7-21 (BEAKER) (test code = 354) CREATININE (BEAKER) 0.69 mg/dL 0.57-1.25 (test code = 358) GLUCOSE RANDOM 251 mg/dL 70-105 H (BEAKER) (test code = 652) CALCIUM (BEAKER) 8.9 mg/dL 8.4-10.2 (test code = 697) EGFR (BEAKER) (test 92 mL/min/1.73 ESTIMA CHANDLER GFR IS code = 1092) sq m NOT ACCURATE CREATININE CLEARANCE IN PREDICTING GLOMERULAR FILTRATION RATE . ESTIMATED GFR I S NOT APPLICABLE FOR DIALYSIS PATIEN TS. Public Housing Manager ID - KELSIE MBLOOD GAS, [id number] 04:10:58 Test Item Value Reference Range Interpretation Comments PH ARTERIAL (BEAKER) (test code = 7.43 7.35-7.45 383) PCO2 ARTERIAL (BEAKER) (test code 39 mm Hg 35-45 = 384) PO2 ARTERIAL (BEAKER) (test code = 201 mm Hg 80-90 H 385) O2 SATURATION ARTERIAL (BEAKER) 99.4 % 96.0-97.0 H (test code = 386) HCO3 ARTERIAL (BEAKER) (test code 25 mmol/L 21-29 = 388) BASE EXCESS ARTERIAL (BEAKER) 0.8 mmol/L -2.0-3.0 (test code = 387) PATIENT TEMPERATURE (BEAKER) (test 37.5 code = 1818) FIO2 (BEAKER) (test code = 1819) 60.0 CBC (HEMOGRAM ONLY)2021-05-01 03:44:31 Test Item Value Reference Range Interpretation Comments WHITE BLOOD CELL COUNT (BEAKER) 9.1 K/ L 3.5-10.5 (test code = 775) RED BLOOD CELL COUNT (BEAKER) 3.44 M/ L 3.93-5.22 L (test code = 761) HEMOGLOBIN (BEAKER) (test code = 10.5 GM/DL 11.2-15.7 L 410) HEMATOCRIT (BEAKER) (test code = 32.1 % 34.1-44.9 L 411) MEAN CORPUSCULAR VOLUME (BEAKER) 93.3 fL 79.4-94.8 (test code = 753) MEAN CORPUSCULAR HEMOGLOBIN 30.5 pg 25.6-32.2 (BEAKER) (test code = 751) MEAN CORPUSCULAR HEMOGLOBIN CONC 32.7 GM/DL 32.2-35.5 (BEAKER) (test code = 752) RED CELL DISTRIBUTION WIDTH 14.0 % 11.7-14.4 (BEAKER) (test code = 412) PLATELET COUNT (BEAKER) (test 184 K/CU MM 150-450 code = 756) MEAN PLATELET VOLUME (BEAKER) 11.0 fL 9.4-12.3 (test code = 754) NUCLEATED RED BLOOD CELLS 0 /100 WBC 0-0 (BEAKER) (test code = 413) POCT-GLUCOSE [id number] 23:24:49 Test Item Value Reference Range Interpretation Comments POC-GLUCOSE METER 202 mg/dL 70-110 H : TESTED A T [facility] 6720 (BEAKER) (test code = [facility], 1538) 14163: Public Housing Manager/Techni chandni ID = [id number] for Ariana Arguelles POCT-GLUCOSE [id number] 18:17:03 Test Item Value Reference Range Interpretation Comments POC-GLUCOSE METER 182 mg/dL 70-110 H : TESTED A T [facility] 6720 (BEAKER) (test code = [facility], 1538) 46827: Public Housing Manager/Techni chandni ID = [id number] for Pa tel, Oumou CSF CELL COUNT [id number]/[id number] 16:51:31 Test Item Value Reference Range Interpretation Comments APPEARANCE CSF Clear Clear (BEAKER) (test code = 407) COLOR CSF (BEAKER) Colorless Colorless (test code = 408) RBC CSF (BEAKER) (test 2 /cu mm 0-5 code = 409) WBC CSF (BEAKER) (test 1 /cu mm See_Comment [Aut omated message] code = 1020) The system [employer] generated this result transmitted ref erence range: <=5. The reference range was not used to int erpret this result as normal/abnormal . RBCS FRESH (BEAKER) 100% Fresh (test code = 1444) NUMBER OF CELLS DIFF'D 2 (BEAKER) (test code = 1591) NEUTROPHIL, CSF 0 % 0-5 (BEAKER) (test code = 324) LYMPHS CSF (BEAKER) 50 % 40-80 (test code = 438) MONO/MACROPHAGE CSF 50 % 15-45 H (BEAKER) (test code = 439) EOSINOPHILS CSF 0 % See_Comment [Automated message] (BEAKER) (test code = The sy stem which 360) generated this result transmitted ref erence range: <=0. The reference range was not used to int erpret this result as normal/abnormal . BASO CSF (BEAKER) 0 % See_Comment [Automate d message] (test code = 440) The system which generated this result transmitted ref erence range: <=0. The reference range was not used to int erpret this result as normal/abnormal . TUBE NUMBER CSF 4 (BEAKER) (test code = 2678) CSF CELL COUNT [id number] 16:50:42 Test Item Value Reference Range Interpretation Comments APPEARANCE CSF Clear Clear (BEAKER) (test code = 407) COLOR CSF (BEAKER) Colorless Colorless (test code = 408) RBC CSF (BEAKER) (test 1 /cu mm 0-5 code = 409) WBC CSF (BEAKER) (test 1 /cu mm See_Comment [Aut omated message] code = 1020) The system whic h generated this result transmitted ref erence range: <=5. The reference range was not used to int erpret this result as normal/abnormal . RBCS FRESH (BEAKER) 100% Fresh (test code = 1444) NUMBER OF CELLS DIFF'D 5 (BEAKER) (test code = 1591) NEUTROPHIL, CSF 0 % 0-5 (BEAKER) (test code = 324) LYMPHS CSF (BEAKER) 80 % 40-80 (test code = 438) MONO/MACROPHAGE CSF 20 % 15-45 (BEAKER) (test code = 439) EOSINOPHILS CSF 0 % See_Comment [Automated message] (BEAKER) (test code = The sy stem which 360) generated this result transmitted ref erence range: <=0. The reference range was not used to int erpret this result as normal/abnormal . BASO CSF (BEAKER) 0 % See_Comment [Automate d message] (test code = 440) The system which generated this result transmitted ref erence range: <=0. The reference range was not used to int erpret this result as normal/abnormal . TUBE NUMBER CSF 1 (BEAKER) (test code = 2678) PROTEIN, [id number] 16:47:13 Test Item Value Reference Range Interpretation Comments PROTEIN CSF (BEAKER) (test code = 31 mg/dL 15-45 378) Public Housing Manager ID - DBGLUCOSE, [id number] 16:47:12 Test Item Value Reference Range Interpretation Comments GLUCOSE CSF (BEAKER) (test code = 166 mg/dL 40-70 H 406) Public Housing Manager ID - DBBLOOD GAS, [id number] 16:17:21 Test Item Value Reference Range Interpretation Comments PH ARTERIAL (BEAKER) (test code = 7.45 7.35-7.45 383) PCO2 ARTERIAL (BEAKER) (test code 33 mm Hg 35-45 L = 384) PO2 ARTERIAL (BEAKER) (test code 279 mm Hg 80-90 H = 385) O2 SATURATION ARTERIAL (BEAKER) 99.7 % 96.0-97.0 H (test code = 386) HCO3 ARTERIAL (BEAKER) (test code 22 mmol/L 21-29 = 388) BASE EXCESS ARTERIAL (BEAKER) -0.9 mmol/L -2.0-3.0 (test code = 387) PATIENT TEMPERATURE (BEAKER) 37.5 (test code = 1818) FIO2 (BEAKER) (test code = 1819) 100.0 MENINGITIS/ENCEPHALITIS [id number] 16:01:29 Test Item Value Reference Range Interpretation Comments ESCHERICHIA COLI K1 (test code = Not detected Not detected 20160106) HAEMOPHILUS INFLUENZAE (test Not detected Not detected code = 20160107) LISTERIA MONOCYTOGENES (test Not detected Not detected code = 20160108) NEISSERIA MENINGITIDIS (test Not detected Not detected code = 20160109) STREPTOCOCCUS AGALACTIAE (test Not detected Not detected code = 0388380) STREPTOCOCCUS PNEUMONIAE (test Not detected Not detected code = 7650292) CYTOMEGALOVIRUS (CMV) (test code Not detected Not detected = 3080127) ENTEROVIRUS (test code = Not detected Not detected 20160113) HUMAN HERPESVIRUS 6 (HHV-6) Not detected Not detected (test code = 20160114) HERPES SIMPLEX VIRUS 1(HSV-1) Not detected Not detected (test code = 20150416) HERPES SIMPLEX VIRUS 2(HSV-2) Not detected Not detected (test code = 20160206) HUMAN PARECHOVIRUS (test code = Not detected Not detected 20160207) VARICELLA-ZOSTER VIRUS (VZV) Not detected Not detected (test code = 1326027) CRYPTOCOCCUS NEOFORMANS/GATTII Not detected Not detected (test code = 7743689) The performance of this test has not been specifically evaluated for CSF specimens from immunocompromised individuals. The effect of antibiotic treatment on test performance has not been evaluated. Other viruses and bacteria not targeted by this PCR panel cannot be excluded; therefore, clinical correlation and follow up of serology, culture results, and other molecular studies may be required. This sample was tested at the [facility] using the [employer] FilmArray MeningitisEncephalitis Panel. It is FDA cleared and has been verified and approved by the [facility] for clinical use. This laboratory is CLIA-certified and [employer] [place] [employer] (CAP)-accredited to perform high complexity testing.RAD, CHEST, 1 VIEW, NON [id number] 15:42:00Reason for exam:->desaturationShould this be performed at the bedside?->Yes [facility] 1975 Sex: FFINAL REPORT CLINICAL HISTORY: desaturation TECHNIQUE: 1 view of the chest. COMPARISON: 04/30/2021 IMPRESSION: An ETT and NG tube are again seen. There are no infiltrates or effusions. The cardiomediastinal silhouette is within normal limits for size. Signed: Varsha LillyMDReport Verified Date/Time: 04/30/2021 15:42:26 Reading Location: [facility] Radiology Reading Room -COV2/RT-PCR ([facility])2021-04-30 15:05:58 Test Item Value Reference Range Interpretation Comments SARS-COV2/RT-PCR (test Negative Not Detected, Negative, code = 1691269) See external report for linked test SARS-COV-2 PERFORMING LAB [facility] (test code = 2163147) Negative result for this test determines that SARS-CoV-2 RNA was not present in the specimen above the Limit of Detection (LOD). However, Negative results do not preclude SARS-CoV-2 infection and should not be used as the sole basis for treatment or patient management decisions. Negative results mustbe combined with clinical observations, patient history, and epidemiological information. A false negative result may occur if a specimen is improperly collected, transported or handled. A false negative result should be considered if patient's recent exposures or clinical presentation indicate that COVID-19 (SARS-CoV-2) is likely and diagnostic tests for other causes of illness are negative. Re-testing should be considered in cases of suspected false negatives.The limit of detection for this assay is 800 copies/mL.This SARS CoV-2 test is a real-time RT-PCR test intended for the qualitative detection of nucleic acid from SARS-CoV-2 in a nasopharyngeal swab specimen collected from individuals susp ected of COVID-19 by their healthcare provider.This test has not been Food and Drug Administration (FDA) cleared or approved. This is a modified version of an approved Emergency Use Authorization (EUA) and is in the process of review by the FDA. Once authorized by the FDA, the issued EUA will be effective until the declaration that circumstances exist justifying the authorization of the emergency use of in vitro diagnostic tests for detection and/or diagnosis of COVID-19 is terminated under Section 564(b)(2) of the Act or the EUA is revoked under Section 564(g) of the Act.Fact Sheet for Healthcare Providers:https://www.quidel.com/sites/default/files/product/documents/Fact_Shee f_YJ_Tyojqlopk_Snrc_JBOW-UeK-4.pdfFact Sheet for Healthcare Patients:https://www.CloudCheckr/sites/default/files/product/ documents/Wqaw_Wtpab_Gqfzgelh_Fgci_ZONG-GwA-0.pdfPerforming Laboratory:[facility], [place] [address]FYLX-KBPFTNU METER 2021-04-30 14:21:32 Test Item Value Reference Range Interpretation Comments POC-GLUCOSE METER 197 mg/dL 70-110 H : TESTED A T [facility] 6720 (BEAKER) (test code [facility], = 1538) 76809: Public Housing Manager/Techni chandni ID = [id number] for MIRI GARCES [id number] 13:25:49 Test Item Value Reference Range Interpretation Comments MAGNESIUM (BEAKER) 1.7 mg/dL 1.6-2.6 Specimen slightly (test code = 627) hemolyzed Public Housing Manager ID - DBPOCT-GLUCOSE [id number] 12:40:58 Test Item Value Reference Range Interpretation Comments POC-GLUCOSE METER 245 mg/dL 70-110 H : TESTED A T [facility] 6720 (BEAKER) (test code [facility], = 1538) 02501: Public Housing Manager/Techni chandni ID = [id number] for MIRI GARCES POCT-GLUCOSE [id number] 05:27:02 Test Item Value Reference Range Interpretation Comments POC-GLUCOSE METER 261 mg/dL 70-110 H : TESTED A T [facility] 6720 (BEAKER) (test code = [facility], 1538) 734[address]: Public Housing Manager/Techni chandni ID = [id number] for Jamal neli Ariana RAD, CHEST, 1 VIEW, NON [id number] 05:08:00Reason for exam:->Intubated patientShould this be performed at the bedside?->Yes [facility] 1975 Sex: FFINAL REPORT RAD, CHEST, 1 VIEW, NON DEPT INDICATION: Intubated patientCOMPARISON: Prior day's exam FINDINGS: Portable frontal view of the chest. IMPRESSION: Support Lines: Feeding tube has been placed and the draining enteric tube has been removed. Stable endotrachealtube. Lungs and pleura: Lungs remain clear. No effusion. No pneumothorax. Heart and mediastinum: Stable contours. Additional findings: None. Signed: Vance Abreu MDReport Verified Date/Time: 04/30/2021 05:08:39 [id number] 04:03:48 Test Item Value Reference Range Interpretation Comments PROCALCITONIN (BEAKER) (test code = < ng/mL <0.05 3036) SEPSIS RISK (ng/mL)Low: 0.05-0.50Intermediate: 0.51-2.00High: >=2.01HIGH SENSITIVITY TROPONIN [id number] 03:56:04 Test Item Value Reference Range Interpretation Comments HIGH SENSITIVITY 56 pg/ml See_Comment H [Automated message] TROPONIN I (test code = The system which 8835504) generated this result transmitted ref erence range: <=17. Th e reference range was not used to int erpret this result as normal/abnormal . Public Housing Manager ID - JHONATHAN WThe DAIRY MANAGEMENT SPECIALIST STAT High Sensitivity Troponin-I results should be used in conjunction with other diagnostic information such as ECG, clinical observations and information, and patient symptoms to aid in the diagnosis of ME.[id number] 03:52:05 Test Item Value Reference Range Interpretation Comments MAGNESIUM (BEAKER) (test code = 1.7 mg/dL 1.6-2.6 627) Public Housing Manager ID - JHONATHAN [id number] 03:52:05 Test Item Value Reference Range Interpretation Comments PHOSPHORUS (BEAKER) (test code = 2.4 mg/dL 2.3-4.7 604) Public Housing Manager [address] WBASIC METABOLIC [id number] 03:52:04 Test Item Value Reference Range Interpretation Comments SODIUM (BEAKER) 139 meq/L 136-145 (test code = 381) POTASSIUM (BEAKER) 4.3 meq/L 3.5-5.1 (test code = 379) CHLORIDE (BEAKER) 107 meq/L 98-107 (test code = 382) CO2 (BEAKER) (test 24 meq/L 22-29 code = 355) BLOOD UREA NITROGEN 13 mg/dL 7-21 (BEAKER) (test code = 354) CREATININE (BEAKER) 0.71 mg/dL 0.57-1.25 (test code = 358) GLUCOSE RANDOM 238 mg/dL 70-105 H (BEAKER) (test code = 652) CALCIUM (BEAKER) 9.2 mg/dL 8.4-10.2 (test code = 697) EGFR (BEAKER) (test 89 mL/min/1.73 ESTIMA CHANDLER GFR IS code = 1092) sq m NOT ACCURATE CREATININE CLEARANCE IN PREDICTING GLOMERULAR FILTRATION RATE . ESTIMATED GFR I S NOT APPLICABLE FOR DIALYSIS PATIEN TS. Public Housing Manager L[address] R[address] WBLOOD GAS, [id number] 03:47:54 Test Item Value Reference Range Interpretation Comments PH ARTERIAL (BEAKER) (test code = 7.34 7.35-7.45 L 383) PCO2 ARTERIAL (BEAKER) (test code 37 mm Hg 35-45 = 384) PO2 ARTERIAL (BEAKER) (test code 161 mm Hg 80-90 H = 385) O2 SATURATION ARTERIAL (BEAKER) 99.0 % 96.0-97.0 H (test code = 386) HCO3 ARTERIAL (BEAKER) (test code 20 mmol/L 21-29 L = 388) BASE EXCESS ARTERIAL (BEAKER) -5.8 mmol/L -2.0-3.0 L (test code = 387) PATIENT TEMPERATURE (BEAKER) 36.7 (test code = 1818) FIO2 (BEAKER) (test code = 1819) 40.0 CBC (HEMOGRAM ONLY)2021-04-30 03:15:32 Test Item Value Reference Range Interpretation Comments WHITE BLOOD CELL COUNT (BEAKER) 10.6 K/ L 3.5-10.5 H (test code = 775) RED BLOOD CELL COUNT (BEAKER) 3.96 M/ L 3.93-5.22 (test code = 761) HEMOGLOBIN (BEAKER) (test code = 12.0 GM/DL 11.2-15.7 410) HEMATOCRIT (BEAKER) (test code = 36.7 % 34.1-44.9 411) MEAN CORPUSCULAR VOLUME (BEAKER) 92.7 fL 79.4-94.8 (test code = 753) MEAN CORPUSCULAR HEMOGLOBIN 30.3 pg 25.6-32.2 (BEAKER) (test code = 751) MEAN CORPUSCULAR HEMOGLOBIN CONC 32.7 GM/DL 32.2-35.5 (BEAKER) (test code = 752) RED CELL DISTRIBUTION WIDTH 13.8 % 11.7-14.4 (BEAKER) (test code = 412) PLATELET COUNT (BEAKER) (test 162 K/CU MM 150-450 code = 756) MEAN PLATELET VOLUME (BEAKER) 11.2 fL 9.4-12.3 (test code = 754) NUCLEATED RED BLOOD CELLS 0 /100 WBC 0-0 (BEAKER) (test code = 413) POCT-GLUCOSE [id number] 23:16:49 Test Item Value Reference Range Interpretation Comments POC-GLUCOSE METER 282 mg/dL 70-110 H : TESTED A T [facility] 6720 (BEAKER) (test code = [place], 1538) [address]: Public Housing Manager/Techni chandni ID = [id number] for Go nzalez, Ariana RAD, ABDOMEN/KUB, 1 VIEW [id number] 13:08:00Reason for exam:->s/p corpakShould this be performed at the bedside?->Yes [facility] 1975 Sex: FFINAL REPORT ONE VIEW ABDOMEN HISTORY: Status post feeding tube placement COMPARISON:Chest radiograph from earlier today FINDINGS: Single supine AP image of the abdomen wasobtained. Feeding tube tip is in the region of the distal stomach or duodenal bulb. Nasogastric tubetip is in the region of the proximal stomach. Several air-filled small bowel loops are noted in the central and lower abdomen, at the upper limits of normal in caliber. The lung bases appear clear. Signed: Enoc Reeveseport Verified Date/Time: 04/29/2021 13:08:14 Reading Location: [address] Reading Room POCT-GLUCOSE [id number] 12:17:36 Test Item Value Reference Range Interpretation Comments POC-GLUCOSE METER 173 mg/dL 70-110 H : TESTED A T [facility] 6720 (BEAKER) (test code = [place], 1538) [address]: Public Housing Manager/Techni chandni ID = [id number] for Ar Guerda josésa MR, BRAIN, WITHOUT [id number] 12:12:00Unlisted Reason for Exam - Click Yes and Enter Reason Below->No [facility] 1975 Sex: FFINAL REPORT MR, BRAIN, WITHOUT CONTRAST INDICATION: Neuro deficit, acute, stroke suspected TECHNIQUE: Multiplanar, multisequence MR imaging of the brain without intravenous contrast. COMPARISON: None FINDINGS: Intracranial: No acute intracranial hemorrhage. No restricteddiffusion to suggest acute infarct. No mass effect. No hydrocephalus. Visualized intracranial flow voids are of normal course and caliber. Scant foci of T2 prolongation within the periventricular and subcortical white matter are a nonspecific finding commonly attributed to chronic small vessel ischemic disease. Sinuses: No evidence of sinusitis. Mastoids are clear. Orbits: Globes are intact. Calvarium \\T\\ scalp: Unremarkable. IMPRESSION:No evidence of acute infarct. Signed: Sherie Richey Verified Date/Time: 04/29/2021 12:12:02 RAD, CHEST, 1 VIEW, NON DEPT 2021-04-29 08:12:00Reason for exam:->Intubated patientShould this be performed at the bedside?->Yes [facility] 1975 Sex: FFINAL REPORT RAD, CHEST, 1 VIEW, NON DEPT INDICATION: Intubated patientCOMPARISON: Prior day's exam FINDINGS: Portable frontal view of the chest. IMPRESSION: Support Lines: ET tube tip is 4 cm superior to the familia. NG tube descends below the diaphragm. Lungs and pleura: Lungs are predominantly clear No significant pneumothorax. Heart and mediastinum: Stable contours. Additional findings: None. Signed: Tere Plascencia Verified Date/Time: 04/29/2021 08:12:28 POCT-GLUCOSE [id number] 06:39:03 Test Item Value Reference Range Interpretation Comments POC-GLUCOSE METER 212 mg/dL 70-110 H : TESTED A T [facility] 6720 (BEAKER) (test code = [place], 1538) [address]: Public Housing Manager/Techni chandni ID = [id number] for MOLLY YANEZ [id number] 04:17:19 Test Item Value Reference Range Interpretation Comments MAGNESIUM (BEAKER) (test code = 1.6 mg/dL 1.6-2.6 627) Public Housing Manager ID - LETY [id number] 04:17:19 Test Item Value Reference Range Interpretation Comments PHOSPHORUS (BEAKER) (test code = 2.9 mg/dL 2.3-4.7 604) Public Housing Manager ID - LETY LBASIC METABOLIC [id number] 04:17:18 Test Item Value Reference Range Interpretation Comments SODIUM (BEAKER) 137 meq/L 136-145 (test code = 381) POTASSIUM (BEAKER) 3.7 meq/L 3.5-5.1 (test code = 379) CHLORIDE (BEAKER) 109 meq/L 98-107 H (test code = 382) CO2 (BEAKER) (test 21 meq/L 22-29 L code = 355) BLOOD UREA NITROGEN 10 mg/dL 7-21 (BEAKER) (test code = 354) CREATININE (BEAKER) 0.66 mg/dL 0.57-1.25 (test code = 358) GLUCOSE RANDOM 235 mg/dL 70-105 H (BEAKER) (test code = 652) CALCIUM (BEAKER) 8.5 mg/dL 8.4-10.2 (test code = 697) EGFR (BEAKER) (test 97 mL/min/1.73 ESTIMA CHANDLER GFR IS code = 1092) sq m NOT ACCURATE CREATININE CLEARANCE IN PREDICTING GLOMERULAR FILTRATION RATE . ESTIMATED GFR I S NOT APPLICABLE FOR DIALYSIS PATIEN TS. Public Housing Manager ID - LETY LCBC (HEMOGRAM ONLY)2021-04-29 03:32:01 Test Item Value Reference Range Interpretation Comments WHITE BLOOD CELL COUNT (BEAKER) 7.3 K/ L 3.5-10.5 (test code = 775) RED BLOOD CELL COUNT (BEAKER) 3.73 M/ L 3.93-5.22 L (test code = 761) HEMOGLOBIN (BEAKER) (test code = 11.1 GM/DL 11.2-15.7 L 410) HEMATOCRIT (BEAKER) (test code = 34.7 % 34.1-44.9 411) MEAN CORPUSCULAR VOLUME (BEAKER) 93.0 fL 79.4-94.8 (test code = 753) MEAN CORPUSCULAR HEMOGLOBIN 29.8 pg 25.6-32.2 (BEAKER) (test code = 751) MEAN CORPUSCULAR HEMOGLOBIN CONC 32.0 GM/DL 32.2-35.5 L (BEAKER) (test code = 752) RED CELL DISTRIBUTION WIDTH 14.2 % 11.7-14.4 (BEAKER) (test code = 412) PLATELET COUNT (BEAKER) (test 139 K/CU MM 150-450 L code = 756) MEAN PLATELET VOLUME (BEAKER) 10.7 fL 9.4-12.3 (test code = 754) NUCLEATED RED BLOOD CELLS 0 /100 WBC 0-0 (BEAKER) (test code = 413) BLOOD GAS, [id number] 03:22:08 Test Item Value Reference Range Interpretation Comments PH ARTERIAL (BEAKER) (test code = 7.40 7.35-7.45 383) PCO2 ARTERIAL (BEAKER) (test code 36 mm Hg 35-45 = 384) PO2 ARTERIAL (BEAKER) (test code 166 mm Hg 80-90 H = 385) O2 SATURATION ARTERIAL (BEAKER) 99.1 % 96.0-97.0 H (test code = 386) HCO3 ARTERIAL (BEAKER) (test code 22 mmol/L 21-29 = 388) BASE EXCESS ARTERIAL (BEAKER) -2.4 mmol/L -2.0-3.0 L (test code = 387) PATIENT TEMPERATURE (BEAKER) 36.7 (test code = 1818) FIO2 (BEAKER) (test code = 1819) 40.0 POCT-GLUCOSE [id number] 01:24:14 Test Item Value Reference Range Interpretation Comments POC-GLUCOSE METER 201 mg/dL 70-110 H : TESTED A T [facility] 6720 (BEAKER) (test code = [facility], 1538) [address]171: Public Housing Manager/Techni chandni ID = [id number] for Carmita Nuno V POCT-GLUCOSE [id number] 17:56:05 Test Item Value Reference Range Interpretation Comments POC-GLUCOSE METER 177 mg/dL 70-110 H : TESTED A T [facility] 6720 ([facility]) (test code = [facility], 1538) 48566: Public Housing Manager/Techni chandni ID = [id number] for SHILO LEMA HEMOGLOBIN [id number] 11:54:47 Test Item Value Reference Range Interpretation Comments HEMOGLOBIN A1C 12.8 % See_Comment H [Automated m essage] ELECTROPHORESIS ([facility]) The system which (test code = 3811) generated this result transmitted ref erence range: <=5.6%. The reference range was not used to int erpret this result as normal/abnormal . "The A1c is measured using a NGSP-certified method. HbA1c value equal to or greater than 6.5% as thediagnosis cutoff for diabetes. An HbA1c value of 5.7- 6.4% indicates increased risk for diabetes (prediabetes)."Public Housing Manager ID - ADMPOCT- GLUCOSE [id number] 11:54:29 Test Item Value Reference Range Interpretation Comments POC-GLUCOSE METER 163 mg/dL 70-110 H : TESTED A T [facility] 6720 ([facility]) (test code = [facility], 1538) 24958: Public Housing Manager/Techni chandni ID = [id number] for SHILO LEMA [id number] 09:17:09 Test Item Value Reference Range Interpretation Comments AMMONIA (BEAKER) (test code = 348) 38 mol/L 18-72 Public Housing Manager ID - KELSIE [id number] 08:47:25 Test Item Value Reference Range Interpretation Comments POTASSIUM (BEAKER) (test code = 3.9 meq/L 3.5-5.1 379) Public Housing Manager ID - KELSIE MRAD, CHEST, 1 VIEW, NON [id number] 08:47:00Reason for exam:->intubatedShould this be performed at the bedside?->Yes [facility] 1975 Sex: FFINAL REPORT RAD, CHEST, 1 VIEW, NON DEPT INDICATION: intubated COMPARISON: 08/30/2018 FINDINGS: Portable frontal view of the chest. IMPRESSION: Support Lines: ET tube tip is 2 cm of the familia. NG tube descends below the diaphragm. Lungs and pleura: Lungs are clear No significant pneumothorax. Heart and mediastinum: Stable contours. Additional findings: None. Signed: Tere Plascencia Verified Date/Time: 04/28/2021 08:47:04 -GLUCOSE [id number] 06:55:48 Test Item Value Reference Range Interpretation Comments POC-GLUCOSE METER 131 mg/dL 70-110 H : TESTED A T [facility] 6720 (BEAKER) (test code = [place], 1538) 212[address]: Public Housing Manager/Techni chandni ID = [id number] for [place] CHALO CORRAL [id number] 06:37:39 Test Item Value Reference Range Interpretation Comments MAGNESIUM (BEAKER) 2.1 mg/dL 1.6-2.6 Specimen slightly (test code = 627) hemolyzed Public Housing Manager ID - KELSIE MHIGH SENSITIVITY TROPONIN [id number] 06:28:36 Test Item Value Reference Range Interpretation Comments HIGH SENSITIVITY 564 pg/ml See_Comment HH [Automated message] TROPONIN I (test code The stem which = [id number]) generated this result transmitted ref erence range: <=17. Th e reference range was not used to int erpret this result as normal/abnormal . Public Housing Manager ID - KELSIE MThe DAIRY MANAGEMENT SPECIALIST STAT High Sensitivity Troponin-I results should be used in conjunction with other diagnostic information such as ECG, clinical observations and information, and patient symptoms to aid in the diagnosis of ME.[id number] 06:18:34 Test Item Value Reference Range Interpretation Comments POTASSIUM (BEAKER) 3.7 meq/L 3.5-5.1 Specimen slightly (test code = 379) hemolyzed Public Housing Manager ID - KELSIE MCALCIUM, [id number] 05:55:04 Test Item Value Reference Range Interpretation Comments CALCIUM IONIZED (BEAKER) (test 1.17 mmol/L 1.12-1.27 code = 698) PH, BLOOD (BEAKER) (test code = 7.39 1810) POCT-GLUCOSE [id number] 05:33:24 Test Item Value Reference Range Interpretation Comments POC-GLUCOSE METER 123 mg/dL 70-110 H : TESTED A T [facility] 6720 (BEAKER) (test code = [facility], 1538) 67224: Public Housing Manager/Techni chandni ID = [id number] for MICHELLE BNONER POCT-GLUCOSE [id number] 03:39:58 Test Item Value Reference Range Interpretation Comments POC-GLUCOSE METER 107 mg/dL 70-110 : TESTED A T [facility] 6720 (BEAKER) (test code = [facility], 1538) 55536: Public Housing Manager/Techni chandni ID = [id number] for MOLLY YANEZ HIGH SENSITIVITY TROPONIN [id number] 02:27:50 Test Item Value Reference Range Interpretation Comments HIGH SENSITIVITY 645 pg/ml See_Comment HH [Automated message] TROPONIN I (test code The sy stem which = [id number]) generated this result transmitted ref erence range: <=17. Th e reference range was not used to int erpret this result as normal/abnormal . Public Housing Manager ID - DBThe DAIRY MANAGEMENT SPECIALIST STAT High Sensitivity Troponin-I results should be used in conjunctionwith other diagnostic information such as ECG, clinical observations and information, and patient symptoms to aid in the diagnosis of ME. SCREEN, [id number] 01:55:00 Test Item Value Reference Range Interpretation Comments TEST URINE (BEAKER) (test Negative code = 583) [id number] 01:26:30 Test Item Value Reference Range Interpretation Comments CORTISOL, TOTAL (BEAKER) (test 17.6 ug/dL 3.7-19.4 code = 2755) Public Housing Manager ID - DBTSH/FREE T4 IF [id number] 01:26:08 Test Item Value Reference Range Interpretation Comments THYROID STIMULATING HORMONE 0.982 uIU/mL 0.350-4.940 (BEAKER) (test code = 772) Public Housing Manager ID - DBPOCT-GLUCOSE [id number] 01:08:52 Test Item Value Reference Range Interpretation Comments POC-GLUCOSE METER 122 mg/dL 70-110 H : TESTED A T [facility] 6720 (BEAKER) (test code = [place], 1538) 57276: Public Housing Manager/Techni chandni ID = [id number] for MICHELLE BONNER CALCIUM, [id number] 01:08:41 Test Item Value Reference Range Interpretation Comments CALCIUM IONIZED (BEAKER) (test 1.06 mmol/L 1.12-1.27 L code = 698) PH, BLOOD (BEAKER) (test code = 7.47 1810) BLOOD GAS, [id number] 01:08:35 Test Item Value Reference Range Interpretation Comments PH ARTERIAL (BEAKER) (test code = 7.47 7.35-7.45 H 383) PCO2 ARTERIAL (BEAKER) (test code 31 mm Hg 35-45 L = 384) PO2 ARTERIAL (BEAKER) (test code 241 mm Hg 80-90 H = 385) O2 SATURATION ARTERIAL (BEAKER) 99.6 % 96.0-97.0 H (test code = 386) HCO3 ARTERIAL (BEAKER) (test code 22 mmol/L 21-29 = 388) BASE EXCESS ARTERIAL (BEAKER) -0.6 mmol/L -2.0-3.0 (test code = 387) PATIENT TEMPERATURE (BEAKER) 36.6 (test code = 1818) FIO2 (BEAKER) (test code = 1819) 60.0 RAPID DRUG SCREEN, [id number] 01:08:20 Test Item Value Reference Range Interpretation Comments BARBITURATE URINE (BEAKER) (test Negative Negative code = 725) BENZODIAZEPINE SCREEN URINE (BEAKER) Positive Negative A (test code = 726) COCAINE (METAB.) SCREEN (BEAKER) Negative Negative (test code = 1164) METHADONE SCREEN (BEAKER) (test code Negative Negative = 1436) OPIATE SCREEN URINE (BEAKER) (test Negative Negative code = 734) CANNABINOID SCREEN URINE (BEAKER) Positive Negative A (test code = 727) AMPH/METHAMPH SCREEN (BEAKER) (test Negative Negative code = 1438) PHENCYCLIDINE SCREEN URINE (BEAKER) Negative Negative (test code = 608) PH UA (BEAKER) (test code = 467) 6.0 5.0-8.0 DRUG CUTOFF CONC.Cocaine 300 ng/mL Cannabinoid 50 ng/mLBenzodiazepine 200 ng/mLBarbiturate 200 ng/mLPhencyclidine 25 ng/mLOpiate 300 ng/mLMethadone 300 ng/mLAmphetamine/ 1000 ng/mL MethamphetamineThis assay provides an unconfirmed qualitative test result for the clinical management of patients in emergency situations. Chain of custody not maintained. Some ilbn-tpc-ofxdkuy medications, as well as adulterants, may cause inaccurate results. Clinical correlation should be applied. A more comprehensivedrug screen or confirmation of a detected drug may be performed upon request.Public Housing Manager ID - DBOperator ID - [auto][id number] 01:07:27 Test Item Value Reference Range Interpretation Comments PARTIAL THROMBOPLASTIN TIME 24.1 seconds 22.5-36.0 (BEAKER) (test code = 760) [id number] 01:05:32 Test Item Value Reference Range Interpretation Comments PHOSPHORUS (BEAKER) (test code = 2.6 mg/dL 2.3-4.7 604) Public Housing Manager ID - DBLIPID [id number] 01:05:32 Test Item Value Reference Range Interpretation Comments TRIGLYCERIDES (BEAKER) (test code = 91 mg/dL 540) CHOLESTEROL (BEAKER) (test code = 97 mg/dL 631) HDL CHOLESTEROL (BEAKER) (test code 45 mg/dL = 976) LDL CHOLESTEROL CALCULATED (BEAKER) 34 mg/dL (test code = 633) Triglyceride Reference Range: Low Risk <150 Borderline 150-199 High Risk 200-499 Very High Risk >=500Cholesterol Reference Range: Low Risk <200 Borderline 200-239 High Risk >240HDL Cholesterol Reference Range: Low Risk >=60 High Risk <40LDL Cholesterol Reference Range: Optimal <100 Near Optimal 100-129 Borderline 130-159 High 160-189 Very High >=190 Public Housing Manager ID - DBCOMPREHENSIVE METABOLIC [id number] 01:05:31 Test Item Value Reference Range Interpretation Comments TOTAL PROTEIN 5.6 gm/dL 6.0-8.3 L (BEAKER) (test code = 770) ALBUMIN (BEAKER) 3.3 g/dL 3.5-5.0 L (test code = 1145) ALKALINE PHOSPHATASE 97 U/L 40-150 (BEAKER) (test code = 346) BILIRUBIN TOTAL 0.3 mg/dL 0.2-1.2 (BEAKER) (test code = 377) SODIUM (BEAKER) (test 134 meq/L 136-145 L code = 381) POTASSIUM (BEAKER) 3.2 meq/L 3.5-5.1 L (test code = 379) CHLORIDE (BEAKER) 102 meq/L 98-107 (test code = 382) CO2 (BEAKER) (test 23 meq/L 22-29 code = 355) BLOOD UREA NITROGEN 17 mg/dL 7-21 (BEAKER) (test code = 354) CREATININE (BEAKER) 0.73 mg/dL 0.57-1.25 (test code = 358) GLUCOSE RANDOM 116 mg/dL 70-105 H (BEAKER) (test code = 652) CALCIUM (BEAKER) 8.4 mg/dL 8.4-10.2 (test code = 697) AST (SGOT) (BEAKER) 30 U/L 5-34 (test code = 353) ALT (SGPT) (BEAKER) 17 U/L 6-55 (test code = 347) EGFR (BEAKER) (test 87 mL/min/1.73 ESTIMA CHANDLER GFR IS code = 1092) sq m NOT ACCURATE CREATININE CLEARANCE IN PREDICTING GLOMERULAR FILTRATION RATE . ESTIMATED GFR I S NOT APPLICABLE FOR DIALYSIS PATIEN TS. Public Housing Manager ID - [id number] 01:05:31 Test Item Value Reference Range Interpretation Comments MAGNESIUM (BEAKER) (test code = 1.4 mg/dL 1.6-2.6 L 627) Public Housing Manager ID - [id number] 01:03:26 Test Item Value Reference Range Interpretation Comments ETHANOL (BEAKER) < mg/dL See_Comment [Automated message] The (test code = 400) system [facility] generated this result tra nsmitted reference range : <=10. The reference r lee was not used to int erpret this result as normal/abnormal . Public Housing Manager ID - DBPROTHROMBIN TIME/[id number] 01:01:48 Test Item Value Reference Range Interpretation Comments PROTIME (YOHANA) 12.5 seconds 11.9-14.2 (test code = 759) INR (YOHANA) (test 0.95 See_Comment [Automat ed message] code = 370) The system [employer] h generated this result transmitted ref erence range: <=5.90. The reference range was not used to int erpret this result as normal/abnormal . RECOMMENDED COUMADIN/WARFARIN INR THERAPY RANGESSTANDARD DOSE: 2.0 - 3.0 Includes: PROPHYLAXIS forvenous thrombosis, systemic embolization; TREATMENT for venous thrombosis and/or pulmonary embolus.HIGH RISK: Target INR is 2.5-3.5 for patients with mechanical heart valves.LACTIC ACID, [id number] 00:57:49 Test Item Value Reference Range Interpretation Comments LACTATE BLOOD VENOUS 0.86 mmol/L 0.50-2.20 Specime n slightly (2) (BEAKER) (test hemolyzed code = 2872) Public Housing Manager ID - DBVITAMIN D, [id number] 09:11:50 Test Item Value Reference Range Interpretation Comments VIT D 25OH (test code = 45 ng/mL 25-80 02667-0) ADRIEL (test code = ADRIEL) Deficiency: <20 ng/mLInsufficiency : 20-24 ng/mLOptimal: 25-80 ng/mL Lab Interpretation (test Normal code = 09522-4) [facility] [id number] 09:11:50 Test Item Value Reference Range Interpretation Comments VIT D 25OH (test code = 45 ng/mL 25-80 07357-7) ADRIEL (test code = ADRIEL) Deficiency: <20 ng/mLInsufficiency : 20-24 ng/mLOptimal: 25-80 ng/mL Lab Interpretation (test Normal code = 86786-7) [facility] [id number] 22:05:56 Test Item Value Reference Range Interpretation Comments FREE T3 (test code = 1431515869) 4.50 pg/mL 2.77-5.27 Lab Interpretation (test code = Normal 71240-6) [facility] [id number] 22:05:56 Test Item Value Reference Range Interpretation Comments FREE T3 (test code = 2460183412) 4.50 pg/mL 2.77-5.27 Lab Interpretation (test code = Normal 26406-5) [id number] 21:49:35 Test Item Value Reference Range Interpretation Comments MAGNESIUM (test code = 2818689740) 2.0 mg/dL 1.7-2.4 Lab Interpretation (test code = Normal 40246-3) [facility] 21:49:35 Test Item Value Reference Range Interpretation Comments MAGNESIUM (test code = 8242261707) 2.0 mg/dL 1.7-2.4 Lab Interpretation (test code = Normal 65803-1) [facility] [id number] 10:25:00 Test Item Value Reference Range Interpretation Comments CULTURE (BEAKER) See comment (test code = 1095) GRAM STAIN RESULT 1+ White blood cells (BEAKER) (test code = seen 1123) GRAM STAIN RESULT 0-5 epithelial cells (BEAKER) (test code = 670960) GRAM STAIN RESULT No organisms seen (BEAKER) (test code = 176732) <1+ yeastNo Normal respiratory neha presentPOCT-GLUCOSE [id number] 11:59:00 Test Item Value Reference Range Interpretation Comments POC-GLUCOSE METER 168 mg/dL 70-110 H TESTED AT [facility] 6720 (BEAKER) (test code = [place] [facility] 1538) [address] POCT-GLUCOSE [id number] 08:13:00 Test Item Value Reference Range Interpretation Comments POC-GLUCOSE METER 176 mg/dL 70-110 H TESTED AT [facility] 6720 ([facility]) (test code = [facility] [place] [facility] 1538) [address] BASIC METABOLIC [id number] 07:35:00 Test Item Value Reference Range Interpretation [...] 0-0 (BEAKER) (test code = 413) POCT-GLUCOSE [id number] 21:38:00 Test Item Value Reference Range Interpretation Comments POC-GLUCOSE METER 218 mg/dL 70-110 H TESTED AT [facility] 6720 ([facility]) (test code = [place] 1538) [address] POCT-GLUCOSE [id number] 18:12:00 Test Item Value Reference Range Interpretation Comments POC-GLUCOSE METER 280 mg/dL 70-110 H TESTED AT [facility] 6720 ([facility]) (test code = [place] [facility] 1538) [address] RAD, CHEST, 2 [id number] 16:46:00Reason for exam:->Pneumonia vs. volume overload, improving.Should [...] MDReport Verified Date/Time: 08/30/2018 16:46:02 Reading Location: [address] Neuro Reading Room POCT- GLUCOSE [id number] 12:32:00 Test Item Value Reference Range Interpretation Comments POC-GLUCOSE METER 172 mg/dL 70-110 H TESTED AT [facility] 6720 ([facility]) (test code = [place] [facility] 1538) [address] POCT-GLUCOSE [id number] 08:14:00 Test Item Value Reference Range Interpretation Comments POC-GLUCOSE METER 287 mg/dL 70-110 H TESTED AT [facility] 6720 ([facility]) (test code = [place] [facility] 1538) [address] BLOOD [id number] 08:01:00 Test Item Value Reference Range Interpretation Comments CULTURE (BEAKER) (test No growth in 5 days code = 1095) BASIC METABOLIC [id number] 07:11:00 Test Item Value Reference Range Interpretation [...] 0-0 (BEAKER) (test code = 413) BLOOD [id number] 02:02:00 Test Item Value Reference Range Interpretation Comments CULTURE (BEAKER) (test No growth in 5 days code = 1095) POCT-GLUCOSE [id number] 22:17:00 Test Item Value Reference Range Interpretation Comments POC-GLUCOSE METER 161 mg/dL 70-110 H TESTED AT [facility] 6720 ([facility]) (test code = [place] 1538) [address] POCT-GLUCOSE [id number] 18:26:00 Test Item Value Reference Range Interpretation Comments POC-GLUCOSE METER 161 mg/dL 70-110 H TESTED AT [facility] 6720 ([facility]) (test code = [place] 1538) [address] VANCOMYCIN LEVEL, [id number] 14:58:00 Test Item Value Reference Range Interpretation [...] 0-0 (BEAKER) (test code = 413) POCT-GLUCOSE [id number] 12:11:00 Test Item Value Reference Range Interpretation Comments POC-GLUCOSE METER 141 mg/dL 70-110 H TESTED AT [facility] 67 ([facility]) (test code = [facility] 1538) [address] POCT-GLUCOSE [id number] 11:50:00 Test Item Value Reference Range Interpretation Comments POC-GLUCOSE METER 60 mg/dL 70-110 L TESTED AT [place] [address] ([facility]) (test code = [facility] [address] 1538) POCT-GLUCOSE [id number] 08:03:00 Test Item Value Reference Range Interpretation Comments POC-GLUCOSE METER 81 mg/dL 70-110 TESTED AT [place] [address] ([facility]) (test code = [facility] [address] 1538) BASIC METABOLIC [id number] 07:38:00 Test Item Value Reference Range Interpretation [...] NOT APPLICABLE FOR DIALYSIS PATIEN TS. POCT-GLUCOSE [id number] 22:05:00 Test Item Value Reference Range Interpretation Comments POC-GLUCOSE METER 216 mg/dL 70-110 H TESTED AT [place] [address] ([facility]) (test code = [facility] 1538) [address] POCT-GLUCOSE [id number] 19:55:00 Test Item Value Reference Range Interpretation Comments POC-GLUCOSE METER 210 mg/dL 70-110 H TESTED AT [place] [address] ([facility]) (test code = [place] [facility] 1538) [address] POCT-GLUCOSE [id number] 14:27:00 Test Item Value Reference Range Interpretation Comments POC-GLUCOSE METER 163 mg/dL 70-110 H TESTED AT [place] [address] ([facility]) (test code = [place] [facility] 1538) [address] VANCOMYCIN LEVEL, [id number] 13:30:00 Test Item Value Reference Range Interpretation Comments VANCOMYCIN TROUGH ([facility]) (test 20.0 ug/mL 10.0-20.0 code = 522) Please obtain vancomycin trough 30 min prior to scheduled dose. Hold dose if level >20. Thank you!POCT-GLUCOSE [id number] 10:15:00 Test Item Value Reference Range Interpretation Comments POC-GLUCOSE METER 153 mg/dL 70-110 H TESTED AT [place] [address] ([facility]) (test code = [place] [facility] 1538) [address] HIV-1 ANTIGEN WITH HIV-1/2 [id number] 06:31:00 Test Item Value Reference Range Interpretation Comments HIV-1 ANTIGEN WITH HIV 1\\T\\2 Nonreactive Nonreactive ANTIBODY (2) ([facility]) (test code = 2586) CT, CHEST, WITHOUT [id number] 01:38:00FINAL REPORT Chest CT without contrast CLINICAL [...] pulmonary edema can have this appearance. Signed: Melissa Abraham MDReport Verified Date/Time: 08/28/2018 01:38:00 Reading Location: [address] Transitional Reading Room SPUTUM CULTURE + GRAM [id number] 01:06:00 Test Item Value Reference Range Interpretation Comments CULTURE (BEAKER) Oropharyngeal (test code = 1095) contamination, specimen rejected. Recollect requested. GRAM STAIN RESULT <1+ White blood cells (BEAKER) (test code seen = 1123) GRAM STAIN RESULT 0-5 epithelial cells (BEAKER) (test code = 12365) GRAM STAIN RESULT No organisms seen (BEAKER) (test code = 96800) CT, MAXILLOFACIAL AREA, WO [id number] 01:06:00FINAL REPORT Clinical History: Fever of unknown [...] otherwise the paranasal sinuses are clear. Signed: Melissa Abraham MDReport Verified Date/Time: 08/28/2018 01:06:15 Reading Location: [facility] C013T Transitional Reading Room POCT-GLUCOSE [id number] 21:15:00 Test Item Value Reference Range Interpretation Comments POC-GLUCOSE METER 291 mg/dL 70-110 H TESTED AT [place] [address] ([facility]) (test code = [facility] 1538) [address] POCT-GLUCOSE [id number] 18:00:00 Test Item Value Reference Range Interpretation Comments POC-GLUCOSE METER 215 mg/dL 70-110 H TESTED AT [place] [address] ([facility]) (test code = [facility] 1538) [address] POCT-GLUCOSE [id number] 13:36:00 Test Item Value Reference Range Interpretation Comments POC-GLUCOSE METER 237 mg/dL 70-110 H TESTED AT [place] [address] ([facility]) (test code = [facility] 1538) [address] VANCOMYCIN LEVEL, [id number] 12:42:00 Test Item Value Reference Range Interpretation Comments VANCOMYCIN TROUGH (BEAKER) (test 18.4 ug/mL 10.0-20.0 code = 522) SPUTUM CULTURE + GRAM [id number] 11:22:00 Test Item Value Reference Range Interpretation Comments CULTURE (BEAKER) <1+ Normal respiratory (test code = 1095) neha present GRAM STAIN RESULT 2+ White blood cells (BEAKER) (test code = seen 1123) GRAM STAIN RESULT 10-15 epithelial cells (BEAKER) (test code = 42009) GRAM STAIN RESULT 2+ gram positive cocci (BEAKER) (test code = in chains and pairs 13230) POCT-GLUCOSE [id number] 09:50:00 Test Item Value Reference Range Interpretation Comments POC-GLUCOSE METER 212 mg/dL 70-110 H TESTED AT [place] [address] ([facility]) (test code = [facility] 1538) [address] BASIC METABOLIC [id number] 06:45:00 Test Item Value Reference Range Interpretation [...] RED BLOOD CELLS 0 /100 WBC 0-0 ([facility]) (test code = 413) POCT-GLUCOSE [id number] 21:37:00 Test Item Value Reference Range Interpretation Comments POC-GLUCOSE METER 130 mg/dL 70-110 H TESTED AT [place] [address] ([facility]) (test code = [facility] 1538) [address] POCT-GLUCOSE [id number] 18:27:00 Test Item Value Reference Range Interpretation Comments POC-GLUCOSE METER 257 mg/dL 70-110 H TESTED AT [place] [address] ([facility]) (test code = [facility] 1538) [address] POCT-GLUCOSE [id number] 16:45:00 Test Item Value Reference Range Interpretation Comments POC-GLUCOSE METER 167 mg/dL 70-110 H TESTED AT [place] [address] ([facility]) (test code = [facility] 1538) [address] POCT-GLUCOSE [id number] 15:20:00 Test Item Value Reference Range Interpretation Comments POC-GLUCOSE METER 235 mg/dL 70-110 H TESTED AT [place] [address] ([facility]) (test code = [facility] 1538) [address] POCT-GLUCOSE [id number] 14:00:00 Test Item Value Reference Range Interpretation Comments POC-GLUCOSE METER 198 mg/dL 70-110 H TESTED AT [place] [address] ([facility]) (test code = [facility] 1538) [address] BASIC METABOLIC [id number] 13:37:00 Test Item Value Reference Range Interpretation [...] NOT APPLICABLE FOR DIALYSIS PATIEN TS. BLOOD [id number] 12:01:00 Test Item Value Reference Range Interpretation Comments CULTURE (BEAKER) (test No growth in 5 days code = 1095) BLOOD [id number] 12:01:00 Test Item Value Reference Range Interpretation Comments CULTURE (BEAKER) (test No growth in 5 days code = 1095) VANCOMYCIN LEVEL, [id number] 11:39:00 Test Item Value Reference Range Interpretation Comments VANCOMYCIN TROUGH (BEAKER) (test 6.5 ug/mL 10.0-20.0 L code = 522) CBC W/PLT COUNT & AUTO [id number] 11:01:00 Test Item Value Reference Range Interpretation [...] PERCENT (BEAKER) (test code = 2801) POCT-GLUCOSE [id number] 07:59:00 Test Item Value Reference Range Interpretation Comments POC-GLUCOSE METER 51 mg/dL 70-110 L TESTED AT [place] [address] ([facility]) (test code = [facility] [address] 1538) POCT-GLUCOSE [id number] 21:45:00 Test Item Value Reference Range Interpretation Comments POC-GLUCOSE METER 170 mg/dL 70-110 H TESTED AT [place] [address] ([facility]) (test code = [facility] 1538) [address] POCT-GLUCOSE [id number] 17:32:00 Test Item Value Reference Range Interpretation Comments POC-GLUCOSE METER 154 mg/dL 70-110 H TESTED AT [facility] 6720 ([facility]) (test code = [facility] 1538) [address] POCT-GLUCOSE [id number] 13:45:00 Test Item Value Reference Range Interpretation Comments POC-GLUCOSE METER 79 mg/dL 70-110 TESTED AT [place] [id number] ([facility]) (test code = [facility] [address] 1538) POCT-GLUCOSE [id number] 13:28:00 Test Item Value Reference Range Interpretation Comments POC-GLUCOSE METER 57 mg/dL 70-110 L Notified Noble Landry MD/TESTED AT (BEAKER) (test code = [facility] 67[address] [place] 1538) [place] [address] POCT-GLUCOSE [id number] 08:53:00 Test Item Value Reference Range Interpretation Comments POC-GLUCOSE METER 148 mg/dL 70-110 H TESTED AT [facility] 6720 (BEAKER) (test code = [place] 1538) [address] [id number] 08:08:00 Test Item Value Reference Range Interpretation Comments MAGNESIUM (BEAKER) (test code = 1.4 mg/dL 1.6-2.6 L 627) BASIC METABOLIC [id number] 08:08:00 Test Item Value Reference Range Interpretation [...] code = 413) URINALYSIS W/ REFLEX URINE [id number] 06:01:00 Test Item Value Reference Range Interpretation [...] = 2795) RAD, CHEST, 1 VIEW, NON [id number] 23:05:00Reason for exam:->chest painShould this be performed [...] The bony thorax is unremarkable. Signed: Richard Vu Verified Date/Time: 08/24/2018 23:05:27 Reading Location: [address] Body Reading Room TROPONIN [id number] 22:50:00 Test Item Value Reference Range Interpretation [...] acidosis, acute neurological disease, and persistent tachyarrhythmia.POCT-GLUCOSE [id number] 20:56:00 Test Item Value Reference Range Interpretation Comments POC-GLUCOSE METER 128 mg/dL 70-110 H TESTED AT [facility] 6720 ([place]) (test code = [facility] 1538) [address] POCT-GLUCOSE [id number] 18:30:00 Test Item Value Reference Range Interpretation Comments POC-GLUCOSE METER 109 mg/dL 70-110 TESTED AT [facility] 6720 ([place]) (test code = [facility] 1538) [address] POCT-GLUCOSE [id number] 12:21:00 Test Item Value Reference Range Interpretation Comments POC-GLUCOSE METER 184 mg/dL 70-110 H TESTED AT [facility] 6720 (BEAKER) (test code = [place] 1538) [address] POCT-GLUCOSE [id number] 09:03:00 Test Item Value Reference Range Interpretation Comments POC-GLUCOSE METER 218 mg/dL 70-110 H TESTED AT [facility] 6720 (BEAKER) (test code = [place] 1538) [address] CBC W/PLT COUNT & AUTO [id number] 02:49:00 Test Item Value Reference Range Interpretation [...] (BEAKER) (test code = 2801) LACTIC ACID, [id number] 02:47:00 Test Item Value Reference Range Interpretation Comments LACTATE BLOOD VENOUS (2) (BEAKER) 0.8 mmol/L 0.5-2.2 (test code = 2872) TROPONIN [id number] 02:36:00 Test Item Value Reference Range Interpretation [...] failure, acidosis, acute neurological disease, and persistent tachyarrhythmia.[id number] 02:32:00 Test Item Value Reference Range Interpretation Comments MAGNESIUM (BEAKER) (test code = 1.6 mg/dL 1.6-2.6 627) BASIC METABOLIC [id number] 02:32:00 Test Item Value Reference Range Interpretation Comments SODIUM (BEAKER) 137 meq/L 136-145 (test code = 381) POTASSIUM (BEAKER) 3.0 meq/L 3.5-5.1 L (test code = 379) CHLORIDE (BEAKER) 110 meq/L 98-107 H (test code = 382) CO2 (BEAKER) (test 19 meq/L 22-29 L code = 355) BLOOD UREA NITROGEN 3 mg/dL 7-21 L (BEAKER) (test code = 354) CREATININE ([facility]) 0.62 mg/dL 0.57-1.25 (test code = 358) GLUCOSE RANDOM 151 mg/dL 70-105 H ([facility]) (test code = 652) CALCIUM ([facility]) 8.2 mg/dL 8.4-10.2 L (test code = 697) EGFR ([facility]) (test 106 mL/min/1.73 ESTIM ATED GFR IS code = 1092) sq m NOT ACCURATE CREATININE CLEARANCE IN PREDICTING GLOMERULAR FILTRATION RATE . ESTIMATED GFR I S NOT APPLICABLE FOR DIALYSIS PATIEN TS. OSMOLALITY, [id number] 00:11:00 Test Item Value Reference Range Interpretation Comments OSMOLALITY URINE 660 mOsm/kg 40-1,400 Test perfor med at ([facility]) (test code = [facility] 614) POCT-GLUCOSE [id number] 21:07:00 Test Item Value Reference Range Interpretation Comments POC-GLUCOSE METER 187 mg/dL 70-110 H TESTED AT [facility] 67 ([facility]) (test code = [place] [facility] 1538) [address] POCT-GLUCOSE [id number] 17:26:00 Test Item Value Reference Range Interpretation Comments POC-GLUCOSE METER 145 mg/dL 70-110 H TESTED AT [facility] 6720 ([facility]) ([facility] = [facility] 1538) [address] POCT-GLUCOSE [id number] 15:03:00 Test Item Value Reference Range Interpretation Comments POC-GLUCOSE METER 107 mg/dL 70-110 TESTED AT [place] [address] ([facility]) (test code = [place] [facility] 1538) [address] POCT-GLUCOSE [id number] 12:27:00 Test Item Value Reference Range Interpretation Comments POC-GLUCOSE METER 118 mg/dL 70-110 H TESTED AT [facility] 6720 ([facility]) (test [facility] = [facility] [place] [facility] 1538) [address] POCT-GLUCOSE [id number] 08:16:00 Test Item Value Reference Range Interpretation Comments POC-GLUCOSE METER 121 mg/dL 70-110 H TESTED AT [facility] 6720 ([facility]) (test code = [place] [facility] 1538) [address] POCT-GLUCOSE [id number] 07:54:00 Test Item Value Reference Range Interpretation Comments POC-GLUCOSE METER 115 mg/dL 70-110 H TESTED AT [facility] 6720 (BEAKER) (test code = [place] 1538) [address] [id number] 06:43:00 Test Item Value Reference Range Interpretation Comments PROCALCITONIN (BEAKER) (test code 7.46 ng/mL <0.05 H = 3036) SEPSIS RISK (ng/mL)Low: 0.05-0.50Intermediate: 0.51-2.00High: >=[id number] 05:35:00 Test Item Value Reference Range Interpretation Comments PHOSPHORUS (BEAKER) (test code = 2.3 mg/dL 2.3-4.7 604) [id number] 05:35:00 Test Item Value Reference Range Interpretation Comments MAGNESIUM (BEAKER) (test code = 1.8 mg/dL 1.6-2.6 627) BASIC METABOLIC [id number] 05:35:00 Test Item Value Reference Range Interpretation [...] APPLICABLE FOR DIALYSIS PATIEN TS. LACTIC ACID, [id number] 05:30:00 Test Item Value Reference Range Interpretation Comments LACTATE BLOOD VENOUS (2) (BEAKER) 0.7 mmol/L 0.5-2.2 (test code = 2872) CBC W/PLT COUNT & AUTO [id number] 05:21:00 Test Item Value Reference Range Interpretation [...] PERCENT (BEAKER) (test code = 2801) HEMOGLOBIN [id number] 01:14:00 Test Item Value Reference Range Interpretation Comments HEMOGLOBIN A1C (BEAKER) (test code = > % 4.3-6.1 H 368) POCT-GLUCOSE [id number] 22:04:00 Test Item Value Reference Range Interpretation Comments POC-GLUCOSE METER 133 mg/dL 70-110 H TESTED AT [facility] 6720 (BEAKER) (test code = [place] 1538) [address] [id number] 21:18:00 Test Item Value Reference Range Interpretation Comments MAGNESIUM (BEAKER) (test code = 1.8 mg/dL 1.6-2.6 627) BASIC METABOLIC [id number] 21:16:00 Test Item Value Reference Range Interpretation [...] S NOT APPLICABLE FOR DIALYSIS PATIEN TS. [id number] 21:02:00 Test Item Value Reference Range Interpretation Comments PHOSPHORUS (BEAKER) (test code = 2.7 mg/dL 2.3-4.7 604) POCT-GLUCOSE [id number] 18:03:00 Test Item Value Reference Range Interpretation Comments POC-GLUCOSE METER 157 mg/dL 70-110 H TESTED AT [facility] 6720 (BEAKER) (test code = [place] 1538) [address] POCT-GLUCOSE [id number] 16:40:00 Test Item Value Reference Range Interpretation Comments POC-GLUCOSE METER 176 mg/dL 70-110 H TESTED AT [facility] 6720 (BEAKER) (test code = [place] 1538) [address] [id number] 16:17:00 Test Item Value Reference Range Interpretation Comments PHOSPHORUS (BEAKER) (test code = 2.3 mg/dL 2.3-4.7 604) [id number] 16:17:00 Test Item Value Reference Range Interpretation Comments MAGNESIUM (BEAKER) (test code = 1.8 mg/dL 1.6-2.6 627) BASIC METABOLIC [id number] 16:17:00 Test Item Value Reference Range Interpretation [...] NOT APPLICABLE FOR DIALYSIS PATIEN TS. POCT-GLUCOSE [id number] 15:58:00 Test Item Value Reference Range Interpretation Comments POC-GLUCOSE METER 176 mg/dL 70-110 H TESTED AT [facility] 6720 (BEAKER) (test code = [place] 1538) [address] POCT-GLUCOSE [id number] 14:22:00 Test Item Value Reference Range Interpretation Comments POC-GLUCOSE METER 187 mg/dL 70-110 H TESTED AT [facility] 6720 (BEAKER) (test code = [facility] 1538) [address] BASIC METABOLIC [id number] 14:04:00 Test Item Value Reference Range Interpretation [...] S NOT APPLICABLE FOR DIALYSIS PATIEN TS. [id number] 14:01:00 Test Item Value Reference Range Interpretation Comments PHOSPHORUS (BEAKER) (test code = 2.7 mg/dL 2.3-4.7 604) [id number] 14:01:00 Test Item Value Reference Range Interpretation Comments MAGNESIUM (BEAKER) (test code = 1.8 mg/dL 1.6-2.6 627) POCT-GLUCOSE [id number] 13:14:00 Test Item Value Reference Range Interpretation Comments POC-GLUCOSE METER 193 mg/dL 70-110 H TESTED AT [facility] 6720 (BEAKER) (test code = [facility] 1538) [address] POCT-GLUCOSE [id number] 12:32:00 Test Item Value Reference Range Interpretation Comments POC-GLUCOSE METER 210 mg/dL 70-110 H TESTED AT [facility] 6720 (BEAKER) (test code = [facility] 1538) [address] [id number] 12:12:00 Test Item Value Reference Range Interpretation Comments FERRITIN (BEAKER) (test code = 361) 20 ng/mL 5-275 POCT-GLUCOSE [id number] 11:20:00 Test Item Value Reference Range Interpretation Comments POC-GLUCOSE METER 216 mg/dL 70-110 H TESTED AT [facility] 6720 (BEAKER) (test code = [place] [facility] 1538) [address] POCT-GLUCOSE [id number] 11:19:00 Test Item Value Reference Range Interpretation Comments POC-GLUCOSE METER 218 mg/dL 70-110 H TESTED AT [facility] 6720 (BEAKER) (test code = [place] [facility] 1538) [address] BASIC METABOLIC [id number] 09:50:00 Test Item Value Reference Range Interpretation [...] S NOT APPLICABLE FOR DIALYSIS PATIEN TS. [id number] 09:39:00 Test Item Value Reference Range Interpretation Comments PHOSPHORUS (BEAKER) (test code = 2.2 mg/dL 2.3-4.7 L 604) [id number] 09:39:00 Test Item Value Reference Range Interpretation Comments MAGNESIUM (BEAKER) (test code = 2.3 mg/dL 1.6-2.6 627) POCT-GLUCOSE [id number] 09:22:00 Test Item Value Reference Range Interpretation Comments POC-GLUCOSE METER 238 mg/dL 70-110 H TESTED AT [place] [address] ([facility]) (test code = [facility] 1538) [address] POCT-GLUCOSE [id number] 08:33:00 Test Item Value Reference Range Interpretation Comments POC-GLUCOSE METER 234 mg/dL 70-110 H TESTED AT [place] [address] ([facility]) (test code = [facility] 1538) [address] POCT-GLUCOSE [id number] 07:09:00 Test Item Value Reference Range Interpretation Comments POC-GLUCOSE METER 236 mg/dL 70-110 H TESTED AT [place] [address] ([facility]) (test code = [facility] 1538) [address] [id number] 06:34:00 Test Item Value Reference Range Interpretation Comments PROCALCITONIN ([facility]) (test code 17.26 ng/mL <0.05 = 3036) SEPSIS RISK (ng/mL)Low: 0.05-0.50Intermediate: 0.51-2.00High: >=2.01POCT-GLUCOSE [id number] 06:22:00 Test Item Value Reference Range Interpretation Comments POC-GLUCOSE METER 199 mg/dL 70-110 H TESTED AT [place] [address] ([facility]) (test code = [facility] 1538) [address] POCT-GLUCOSE [id number] 06:22:00 Test Item Value Reference Range Interpretation Comments POC-GLUCOSE METER 183 mg/dL 70-110 H TESTED AT [place] [address] ([facility]) (test code = [facility] 1538) [address] BASIC METABOLIC [id number] 04:56:00 Test Item Value Reference Range Interpretation [...] PATIEN TS. CBC W/PLT COUNT & AUTO [id number] 04:52:00 Test Item Value Reference Range Interpretation [...] 0-1 PERCENT (BEAKER) (test code = 2801) [id number] 04:45:00 Test Item Value Reference Range Interpretation Comments PHOSPHORUS (BEAKER) (test code = 1.9 mg/dL 2.3-4.7 L 604) [id number] 04:45:00 Test Item Value Reference Range Interpretation [...] L (test code = 2590) BLOOD GAS, [id number] 04:40:00 Test Item Value Reference Range Interpretation [...] code = 1819) 21.0 % LACTIC ACID, [id number] 04:32:00 Test Item Value Reference Range Interpretation Comments LACTATE BLOOD VENOUS (2) (BEAKER) 0.7 mmol/L 0.5-2.2 (test code = 2872) POCT-GLUCOSE [id number] 04:09:00 Test Item Value Reference Range Interpretation Comments POC-GLUCOSE METER 143 mg/dL 70-110 H TESTED AT [facility] 6720 ([facility]) (test code = [facility] 1538) [address] POCT-GLUCOSE [id number] 03:19:00 Test Item Value Reference Range Interpretation Comments POC-GLUCOSE METER 140 mg/dL 70-110 H TESTED AT [facility] 6720 ([facility]) (test code = [facility] 1538) [address] POCT-GLUCOSE [id number] 02:25:00 Test Item Value Reference Range Interpretation Comments POC-GLUCOSE METER 150 mg/dL 70-110 H TESTED AT [facility] 6720 (BEAKER) (test code = [facility] 1538) [address] BASIC METABOLIC [id number] 01:22:00 Test Item Value Reference Range Interpretation [...] NOT APPLICABLE FOR DIALYSIS PATIEN TS. TROPONIN [id number] 01:16:00 Test Item Value Reference Range Interpretation [...] acidosis, acute neurological disease, and persistent tachyarrhythmia.POCT-GLUCOSE [id number] 01:15:00 Test Item Value Reference Range Interpretation Comments POC-GLUCOSE METER 155 mg/dL 70-110 H TESTED AT [place] [address] ([facility]) (test code = [place] [facility] 1538) [address] [id number] 01:08:00 Test Item Value Reference Range Interpretation Comments PHOSPHORUS (BEAKER) (test code = 2.1 mg/dL 2.3-4.7 L 604) [id number] 01:08:00 Test Item Value Reference Range Interpretation Comments MAGNESIUM (BEAKER) (test code = 1.7 mg/dL 1.6-2.6 627) POCT-GLUCOSE [id number] 00:29:00 Test Item Value Reference Range Interpretation Comments POC-GLUCOSE METER 161 mg/dL 70-110 H TESTED AT [place] [address] ([facility]) (test code = [place] [facility] 1538) [address] POCT-GLUCOSE [id number] 23:10:00 Test Item Value Reference Range Interpretation Comments POC-GLUCOSE METER 172 mg/dL 70-110 H TESTED AT [place] [address] ([facility]) (test code = [place] [facility] 1538) [address] POCT-GLUCOSE [id number] 22:46:00 Test Item Value Reference Range Interpretation Comments POC-GLUCOSE METER 206 mg/dL 70-110 H TESTED AT [place] [address] ([facility]) (test code = [place] [facility] 1538) [address] STREP PNEUMONIAE [id number] 21:51:00 Test Item Value Reference Range Interpretation [...] detection limit of the test. LEGIONELLA ANTIGEN, [id number] 21:50:00 Test Item Value Reference Range Interpretation Comments L. PNEUMOPHILA Negative - see Negative fo r L. SEROGP 1 UR AG comment pneumophila (BEAKER) (test code serogrou p 1 antigen, = 1156) suggesting no r ecent or current infe ction with this serog roup. Legionellosis c annot be ruled out si nce other serogroup s and species may cau se disease. LACTIC ACID, [id number] 21:31:00 Test Item Value Reference Range Interpretation Comments LACTATE BLOOD VENOUS (2) (BEAKER) 1.1 mmol/L 0.5-2.2 (test code = 2872) BASIC METABOLIC [id number] 21:28:00 Test Item Value Reference Range Interpretation [...] S NOT APPLICABLE FOR DIALYSIS PATIEN TS. [id number] 21:27:00 Test Item Value Reference Range Interpretation Comments PHOSPHORUS (BEAKER) (test code = 2.1 mg/dL 2.3-4.7 L 604) [id number] 21:27:00 Test Item Value Reference Range Interpretation Comments MAGNESIUM (BEAKER) (test code = 2.0 mg/dL 1.6-2.6 627) POCT-GLUCOSE [id number] 20:35:00 Test Item Value Reference Range Interpretation Comments POC-GLUCOSE METER 218 mg/dL 70-110 H TESTED AT [facility] 6720 (BEAKER) (test code = [place] 1538) [address] CREATININE, RANDOM [id number] 19:51:00 Test Item Value Reference Range Interpretation Comments CREATININE URINE (BEAKER) (test 25.6 mg/dL code = 375) Reference Range: No NormalsPROTEIN, RANDOM [id number] 19:51:00 Test Item Value Reference Range Interpretation Comments PROTEIN, URINE (BEAKER) (test code = 10 mg/dL 0-14 1569) SODIUM, RANDOM [id number] 19:51:00 Test Item Value Reference Range Interpretation Comments SODIUM URINE (BEAKER) (test code = 145 meq/L 243) Reference Range: No NormalsU/S, ABDOMINAL, [id number] 19:48:00Reason for exam:->nausea,vomitting,AKIShould this be performed at [...] or identified. CONCLUSION: Cholelithiasis. Signed: Mynor Foster [facility] Verified Date/Time: 08/21/2018 19:48:18 Reading Location: [address] Consult Reading Room Electronically signed by: MYNOR FOSTER M.D. on 0 08/21/2018 07:48 PMLIPID [id number] 19:36:00 Test Item Value Reference Range Interpretation Comments TRIGLYCERIDES (BEAKER) (test code = 189 mg/dL 540) CHOLESTEROL (BEAKER) (test code = 148 mg/dL 631) HDL CHOLESTEROL (BEAKER) (test code 30 mg/dL = 976) LDL CHOLESTEROL CALCULATED (AKER) 80 mg/dL (test code = 633) Triglyceride Reference Range: Low Risk <150 Borderline 150-199 High Risk 200-499 Very High Risk >=500Cholesterol Reference Range: Low Risk <200 Borderline 200-239 High Risk >240HDL Cholesterol Reference Range: Low Risk >=60 High Risk <40LDL Cholesterol Reference Range: Optimal <100 Near Optimal 100-129 Borderline 130-159 High 160-189 Very High >=190LACTIC ACID, [id number] 19:33:00 Test Item Value Reference Range Interpretation Comments LACTATE BLOOD VENOUS (2) ([facility]) 1.1 mmol/L 0.5-2.2 (test code = 2872) POCT-GLUCOSE [id number] 19:13:00 Test Item Value Reference Range Interpretation Comments POC-GLUCOSE METER 257 mg/dL 70-110 H TESTED AT [place] [address] ([facility]) (test code = [place] 1538) [address] POCT-GLUCOSE [id number] 18:23:00 Test Item Value Reference Range Interpretation Comments POC-GLUCOSE METER 308 mg/dL 70-110 H TESTED AT [place] [address] ([facility]) (test code = [place] 1538) [address] POCT-GLUCOSE [id number] 17:27:00 Test Item Value Reference Range Interpretation Comments POC-GLUCOSE METER 324 mg/dL 70-110 H TESTED AT [place] [address] ([facility]) ([facility] = [facility] [place] [place] 1538) [address] [id number] 17:26:00 Test Item Value Reference Range Interpretation Comments PROCALCITONIN (BEAKER) (test code 21.30 ng/mL <0.05 HH = 3036) SEPSIS RISK (ng/mL)Low: 0.05-0.50Intermediate: 0.51-2.00High: >=2.01TROPONIN [id number] 16:41:00 Test Item Value Reference Range Interpretation [...] acute neurological disease, and persistent tachyarrhythmia.BASIC METABOLIC [id number] 16:39:00 Test Item Value Reference Range Interpretation [...] APPLICABLE FOR DIALYSIS PATIEN TS. BLOOD GAS, [id number] 16:33:00 Test Item Value Reference Range Interpretation [...] (BEAKER) (test code = 1819) 21.0 % [id number] 16:32:00 Test Item Value Reference Range Interpretation Comments PHOSPHORUS (BEAKER) (test code = 3.0 mg/dL 2.3-4.7 604) [id number] 16:32:00 Test Item Value Reference Range Interpretation Comments MAGNESIUM (BEAKER) (test code = 1.9 mg/dL 1.6-2.6 627) LACTIC ACID, [id number] 16:30:00 Test Item Value Reference Range Interpretation Comments LACTATE BLOOD VENOUS (2) (BEAKER) 1.1 mmol/L 0.5-2.2 (test code = 2872) POCT-GLUCOSE [id number] 16:07:00 Test Item Value Reference Range Interpretation Comments POC-GLUCOSE METER 292 mg/dL 70-110 H TESTED AT [facility] 6720 (BEAKER) (test code = [place] 1538) [address] RAD, ABDOMEN/KUB, 1 VIEW [id number] 15:53:00Reason for exam:- >nausea,vomittingShould this be performed at the bedside?->YesFINAL REPORT Abdomen one view Comparison: None. Reason for exam: nausea,vomitting Findings: Bowel gas pattern is nonspecific, nonobstructive. No free air is identified. The visualized osseous structures are unremarkable. Signed: Kandy Black Verified Date/Time: 08/21/201815:53:49 Reading Location: [address] Consult Reading Room POCT-GLUCOSE [id number] 15:02:00 Test Item Value Reference Range Interpretation Comments POC-GLUCOSE METER 284 mg/dL 70-110 H TESTED AT [facility] 6720 (BEAKER) (test code = [place] 1538) [address] RESPIRATORY PANEL [id number] 14:27:00 Test Item Value Reference Range Interpretation [...] decisions. This sample was tested at the [facility] using the [employer] FilmArray Respiratory Panel. It is FDA cleared and has been verified and approved by the [facility] for clinical use on nasopharyngeal swab specimens.The performance of the FilmArrayRP has not been established in individuals who received influenza vaccine. Recent administration ofa nasal influenza vaccine may cause false positive results for Influenza A and/orInfluenza B.POCT-GLUCOSE [id number] 14:07:00 Test Item Value Reference Range Interpretation Comments POC-GLUCOSE METER 286 mg/dL 70-110 H TESTED AT [place] [address] ([facility]) (test code = [place] [facility] 1538) [id number] POCT-GLUCOSE [id number] 13:21:00 Test Item Value Reference Range Interpretation Comments POC-GLUCOSE METER 275 mg/dL 70-110 H TESTED AT [place] [address] ([facility]) (test code = TUNDE Dickey [facility] 1538) [address] BLOOD GAS, [id number] 13:10:00 Test Item Value Reference Range Interpretation [...] code = 1819) 21.0 % BASIC METABOLIC [id number] 12:58:00 Test Item Value Reference Range Interpretation [...] S NOT APPLICABLE FOR DIALYSIS PATIEN TS. [id number] 12:55:00 Test Item Value Reference Range Interpretation Comments PHOSPHORUS (BEAKER) (test code = 1.9 mg/dL 2.3-4.7 L 604) LACTIC ACID, [id number] 12:54:00 Test Item Value Reference Range Interpretation Comments LACTATE BLOOD VENOUS (2) (BEAKER) 2.0 mmol/L 0.5-2.2 (test code = 2872) POCT-GLUCOSE [id number] 12:25:00 Test Item Value Reference Range Interpretation Comments POC-GLUCOSE METER 337 mg/dL 70-110 H TESTED AT [facility] 6720 (BEAKER) (test code = [place] 1538) [id number] POCT-GLUCOSE [id number] 11:20:00 Test Item Value Reference Range Interpretation Comments POC-GLUCOSE METER 282 mg/dL 70-110 H TESTED AT [facility] 6720 (BEAKER) (test code = [place] 1538) [id number] URINALYSIS W/ REFLEX URINE [id number] 11:16:00 Test Item Value Reference Range Interpretation [...] Rare SOURCE(BEAKER) (test code = 2795) SCREEN, [id number] 11:16:00 Test Item Value Reference Range Interpretation Comments TEST URINE (BEAKER) (test Negative code = 583) COMPREHENSIVE METABOLIC [id number] 11:15:00 Test Item Value Reference Range Interpretation [...] NOT APPLICABLE FOR DIALYSIS PATIEN TS. KETONE, [id number] 11:15:00 Test Item Value Reference Range Interpretation Comments KETONES, BLOOD (BEAKER) (test code 4.9 mmol/L <0.4 H = 1103) TSH/FREE T4 IF [id number] 11:10:00 Test Item Value Reference Range Interpretation Comments THYROID STIMULATING HORMONE 0.85 uIU/mL 0.35-4.94 (BEAKER) (test code = 772) TROPONIN [id number] 10:56:00 Test Item Value Reference Range Interpretation [...] failure, acidosis, acute neurological disease, and persistent tachyarrhythmia.[id number] 10:53:00 Test Item Value Reference Range Interpretation Comments PHOSPHORUS (BEAKER) (test code = 2.9 mg/dL 2.3-4.7 604) [id number] 10:53:00 Test Item Value Reference Range Interpretation Comments MAGNESIUM (BEAKER) (test code = 1.5 mg/dL 1.6-2.6 L 627) [id number] 10:53:00 Test Item Value Reference Range Interpretation Comments AMYLASE (BEAKER) (test code = 349) 16 U/L 25-125 L [id number] 10:53:00 Test Item Value Reference Range Interpretation Comments LIPASE (BEAKER) (test code = 749) 40 U/L 8-78 PROTHROMBIN [id number] 10:49:00 Test Item Value Reference Range Interpretation Comments PROTIME (BEAKER) (test code = 14.9 seconds 11.7-14.7 H 759) INR (BEAKER) (test code = 370) 1.2 <=5.9 RECOMMENDED COUMADIN/WARFARIN INR THERAPY RANGESSTANDARD DOSE: 2.0 - 3.0 Includes: PROPHYLAXIS forvenous thrombosis, systemic embolization; TREATMENT for venous thrombosis and/or pulmonary embolus.HIGH RISK: Target INR is 2.5-3.5 for patients with mechanical heart valves.LACTIC ACID, [id number] 10:47:00 Test Item Value Reference Range Interpretation Comments LACTATE BLOOD VENOUS (2) (BEAKER) 3.0 mmol/L 0.5-2.2 H (test code = 2872) POCT-GLUCOSE [id number] 10:45:00 Test Item Value Reference Range Interpretation Comments POC-GLUCOSE METER 355 mg/dL 70-110 H Notified R N /TESTED (BEAKER) (test code = AT [facility] 6720 [facility] 9716) [facility] 7703 0 CBC W/PLT COUNT & AUTO [id number] 10:36:00 Test Item Value Reference Range Interpretation [...] (test code = 2801) RAPID INFLUENZA A&B [id number] 10:29:00 Test Item Value Reference Range Interpretation Comments RAPID INFLUENZA A AG (BEAKER) Negative Negative, Inconclusive (test code = 1622) RAPID INFLUENZA B AG (BEAKER) Negative Negative, Inconclusive (test code = 1623) RAD, CHEST, 1 VIEW, NON [id number] 10:24:00?pnaReason for exam:->chest pain,sobShould this be performed at the bedside?->YesFINAL REPORT Chest one view. Clinical history: chest pain,sob Comparison: No priors Discussion: A frontal chest is provided. Cardiomediastinal contours are unremarkable, allowing for portable technique. There is no evidence of vascular congestion, consolidation, pneumothorax orsignificant effusion. No acute bony abnormality. Signed: Kandy Black Verified Date/Time: 08/21/2018 10:24:52 Reading Location: [facility] Radiology Reading Room BLOOD GAS, [id number] 10:17:00 Test Item Value Reference Range Interpretation [...] (test code = 1819) 21.0 % POCT-GLUCOSE [id number] 09:47:00 Test Item Value Reference Range Interpretation Comments POC-GLUCOSE METER 430 mg/dL 70-110 Notified R N MD/TESTED (BEAKER) (test code = AT [facility] 67[address] [place] 7378) [facility] 7703 0
--- NOTE | 2021-06-16 17:31 | EDPHYS ---
Physician Documentation [facility] Name: Michael Horne Age: 45 yrs Sex: Female : 1975 Arrival Date: 06/16/2021 Time: 15:37 Bed 18 Private MD: Sarahi Monae ED Physician Maximiliano Cohen HPI: 06/16 16:57 This 45 yrs old Female presents to ER via Wheelchair with complaints of Problem With pm1 Feeding Tube. 16:57 Onset: The symptoms/episode began/occurred today. Associated signs and symptoms: The pm1 patient has no apparent associated signs or symptoms. Modifying factors: The patient symptoms are alleviated by nothing, the patient symptoms are aggravated by nothing. The patient has been recently seen by a physician: Patient discharged from the hospital 2 days ago. reports no discharge instructions on care of PEG tube and the site has not been clean since then. Patient's reports noticing some drainage present onto the 4x4 dressing. 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 - Social history:: Smoking status: Patient reports the use of cigarette tobacco products, smokes one pack cigarettes per day. ROS: 16:57 Constitutional: Negative for fever, chills, and weight loss, Cardiovascular: Negative pm1 for chest pain, palpitations, and edema, Respiratory: Negative for shortness of breath, cough, wheezing, and pleuritic chest pain. 16:57 Back: Negative for injury and pain, MS/Extremity: Negative for injury and deformity, Skin: Negative for injury, rash, and discoloration, Neuro: Negative for headache, weakness, numbness, tingling, and seizure. 16:57 Abdomen/GI: Positive for abdominal pain, Negative for nausea, vomiting, and diarrhea. 16:57 All other systems are negative. Exam: 16:57 Constitutional: This is a well developed, well nourished patient who is awake, alert, pm1 and in no acute distress. Head/Face: Normocephalic, atraumatic. 16:57 Skin: Warm, dry with normal turgor. Normal color with no rashes, no lesions, and no evidence of cellulitis. MS/ Extremity: Pulses equal, no cyanosis. Neurovascular intact. Full, normal range of motion. 16:57 Cardiovascular: Exam negative for acute changes, Rate: normal, Rhythm: regular, Pulses: no pulse deficits are appreciated. 16:57 Respiratory: Exam negative for acute changes, respiratory distress, shortness of breath. 16:57 Abdomen/GI: Inspection: Normal except presence of PEG tube. PEG tube without any surrounding cellulitis present around stoma and anchoring suture. Abdomen palpated without any pain around PEG tube. No drainage from stoma with palpation of abdominal area, Palpation: abdomen is soft and non-tender, in all quadrants. 16:57 Neuro: Exam negative for acute changes, Orientation: is normal, Mentation: is normal, Motor: is normal, moves all fours. Vital Signs: 15:51 BP 97 / 59; Pulse 87; Resp 16; Temp 97.7; Pulse Ox 97% ; Weight 85.73 kg; Height 5 ft. ww 7 in. (170.18 cm); 17:53 BP 94 / 60; Pulse 80; Resp 20; Pulse Ox 99% ; lr4 15:51 Body Mass Index 29.60 (85.73 kg, 170.18 cm) ww MDM: 16:10 Patient medically screened. [facility] 17:12 Data reviewed: vital signs. Data interpreted: Pulse oximetry: on room air is 97 %. pm1 Interpretation: normal. 17:31 Counseling: I had a detailed discussion with the patient and/or guardian regarding: the pm1 historical points, exam findings, and any diagnostic results supporting the discharge/admit diagnosis, the need for outpatient follow up, to return to the emergency department if symptoms worsen or persist or if there are any questions or concerns that arise at home. 06/16 16:57 Order name: [facility]. Order: Check/flush PEG tube; Complete Time: 17:13 pm1 Administered Medications: No medications were administered Disposition: 06/17 18:27 Co-signature as Attending Physician, Maximiliano Cohen MD I agree with the assessment and [facility] plan of care. Disposition Summary: 06/16/21 17:31 Discharge Ordered Location: Home pm1 Problem: new pm1 Symptoms: have improved pm1 Condition: Stable pm1 Diagnosis - Encounter for attention to gastrostomy pm1 Followup: pm1 - With: Emergency Department - When: As needed - Reason: Worsening of condition Followup: pm1 - With: Private Physician - When: 2 - 3 days - Reason: Recheck today's complaints, Continuance of care, Re-evaluation by your physician Discharge Instructions: - Discharge Summary Sheet pm1 - PEG Tube Home Guide, [id number] pm1 Forms: - Medication Reconciliation Form pm1 - Thank You Letter pm1 - Antibiotic Education pm1 - Prescription Opioid Use pm1 Signatures: Maximiliano Cohen MD MD cha Marinas, Patrick, ZEB [employer] CHIEF pm1 Alyssa Lugo, RN RN ww
--- NOTE | 2021-06-16 17:31 | ER ---
Nurse's Notes [facility] Name: Michael Horne Age: 45 yrs Sex: Female : 1975 Arrival Date: 06/16/2021 Time: 15:37 Bed 18 Private MD: Sarahi Monae Diagnosis: Encounter for attention to gastrostomy Presentation: 06/16 15:51 Chief complaint: Spouse and/or significant other states: Has a feeding tube that is ww suppose to come out and spouse has noticed there is yellow drainage around the site and the patient is complaining of pain. Coronavirus screen: Vaccine status: Patient reports receiving the 2nd dose of the covid vaccine. Client denies travel out of the [place] in the last 14 days. Ebola Screen: Patient denies travel to an Ebola-affected area in the 21 days before illness onset. Initial Sepsis Screen: Does the patient meet any 2 criteria? No. Patient's initial sepsis screen is negative. Does the patient have a suspected source of infection? No. Patient's initial sepsis screen is negative. Risk Assessment: Do you want to hurt yourself or someone else? Patient reports no desire to harm self or others. Onset of symptoms is unknown. 15:51 Method Of Arrival: Wheelchair ww 15:51 Acuity: MAEGAN 4 ww Triage Assessment: 15:53 General: Appears in no apparent distress. Behavior is calm, cooperative. Pain: ww Complains of pain in abdomen. Neuro: Level of Consciousness is awake, alert, obeys commands, intermittent confusion. Oriented to person, place, time, Weakness Speech is normal. Respiratory: Airway is patent Respiratory effort is even, unlabored, Respiratory pattern is regular, symmetrical. GI: Parent/caregiver reports the patient having pain around feeding tube site. : No signs and/or symptoms were reported regarding the genitourinary system. 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 - Social history:: Smoking status: Patient reports the use of cigarette tobacco products, smokes one pack cigarettes per day. Screenin:56 Abuse screen: Denies threats or abuse. Denies injuries from another. Nutritional ww screening: No deficits noted. Tuberculosis screening: No symptoms or risk factors identified. 16:27 Fall Risk No fall in past 12 months (0 pts). Secondary diagnosis (15 points) No IV (0 lr4 pts). Ambulatory Aid- Crutches/Cane/Walker (15 pts). Gait- Impaired (20 pts.). Mental Status- Oriented to own ability (0 pts). Total Sow Fall Scale indicates High Risk Score (45 or more points). Frequent Obs/Assessments Occuring As available patient and family educated on Fall Prevention Program and Strategies. Assessment: 16:22 General: Appears in no apparent distress. comfortable, Behavior is calm, cooperative. lr4 Pain: Complains of pain in abdomen Pain currently is 10 out of 10 on a pain scale. Neuro: No deficits noted. Cardiovascular: No deficits noted. Respiratory: No deficits noted. GI: PEG tube clamped. Site reddened. Site with drainage. 17:13 General: Irrigated peg tube with 120 cc of water, flushed normally, aspirated normally, lr4 peg tube patent and intact and functioning properly, provider noted. . 17:53 Reassessment: Pt departed ed via wheelchair with all personal effects. lr4 Vital Signs: 15:51 BP 97 / 59; Pulse 87; Resp 16; Temp 97.7; Pulse Ox 97% ; Weight 85.73 kg; Height 5 ft. ww 7 in. (170.18 cm); 17:53 BP 94 / 60; Pulse 80; Resp 20; Pulse Ox 99% ; lr4 15:51 Body Mass Index 29.60 (85.73 kg, 170.18 cm) ww ED Course: 15:37 Patient arrived in ED. as 15:38 Sarahi Monae MD is Private Physician. as 15:53 Triage completed. ww 15:53 Arm band placed on right wrist. ww 16:06 Yuval Kyle NP is PHCP. pm1 16:06 Maximiliano Cohen MD is Attending Physician. pm1 16:22 Lilian Moura RN is Primary Nurse. lr4 16:27 Bed in low position. Call light in reach. Side rails up X 1. Adult w/ patient. Door lr4 closed. Noise minimized. Warm blanket given. 16:27 No provider procedures requiring assistance completed. lr4 17:15 Patient did not have IV access during this emergency room visit. lr4 Administered Medications: No medications were administered Outcome: 16:27 Condition: stable lr4 17:14 Discharged to home lr4 17:14 Discharge instructions given to patient, family. 17:31 Discharge ordered by MD. pm1 17:54 Patient left the ED. lr4 Signatures: Maria R Cornelius Patrick, NP [employer] pm1 Alyssa Lugo, RN RN ww Lilian Moura RN RN lr4
[2021-06-16 18:05] VITALS: TEMP 97.7
[2021-06-16 18:06] VITALS: BP 94/60; O2SAT 99
== END 2021-06-16 17:54 | disposition home or self-care (01) ==
LOC: ER 15:36
DX: Z43.1 Encounter for attention to gastrostomy (principal)
CPT/HCPCS: 99281